=== PATIENT | male | born 1985 | race Caucasian/White ===

== ENCOUNTER 2021-05-15 01:29 | Emergency (ER) | payer OTHER, SELFPAY ==
--- NOTE | ~2021-05-15 | XR_ITS ---
EXAMINATION: RIGHT WRIST CLINICAL INFORMATION: Pain and deformity COMPARISON: None TECHNIQUE: 3 views right hand and wrist FINDINGS: No significant bone, joint or soft tissue abnormality seen. XR/XR hand wrist RT IMPRESSION: No abnormality is detected.
[2021-05-15 01:33] VITALS: BP 127/76; PULSE 73; O2SAT 97
[2021-05-15 01:36] VITALS: BP 128/81; PULSE 65; RESP 20; TEMP 37; O2SAT 99; BMI 25.8
[2021-05-15 03:19] LABS: MANUAL DIFF FLAG NO
[2021-05-15 03:20] LABS: Basophils Percent Auto 0.1 % (0-2); Eosinophils Absolute Auto 0.2 X10*3/uL (0.0-0.4); Hematocrit 34.1 % (42-52); Hemoglobin 11.9 g/dl (14.0-18.0); Imm Gran Abs Auto 0.03 X10*3/uL (0.00-0.03); Imm Gran Pct Auto 0.3 % (0.0-0.4); Lymphocytes Absolute Auto 2.3 X10*3/uL (1.2-4.9); Lymphocytes Percent Auto 25.3 % (20-40); Mean Corpuscular HGB Conc 34.9 g/dl (31.0-36.0); Mean Corpuscular Hemoglobin 31.4 pg (27.0-33.0); Mean Platelet Volume 9.1 fL (9.4-12.4); Monocytes Absolute Auto 0.6 X10*3/uL (0.1-1.2); Monocytes Percent Auto 6.9 % (2-11); Neutrophils Percent Auto 65.4 % (45-73); Platelet Count 378 X10*3/uL (160-400); Red Blood Count 3.79 X10*6/uL (4.60-5.80); Red Cell Distribution Width 13.2 % (11.0-16.0); White Blood Count 9.1 X10*3/uL (4.8-10.8)
[2021-05-15 03:33] LABS: Alanine Aminotransferase 35 U/L (0-40); Albumin Level 3.5 g/dL (3.5-5.0); Alkaline Phosphatase 88 U/L (39-117); Anion Gap 13 (12-20); Aspartate Amino Transferase 28 U/L (5-37); Bilirubin Total 0.4 mg/dL (0.0-1.0); Blood Urea Nitrogen 6 mg/dL (9-16); Calcium 8.8 mg/dL (8.4-10.2); Carbon Dioxide 23 mmol/L (22-29); Chloride 105 mmol/L (96-108); Creatinine Clr Calc Pharmacy 160.8; Estimated Glomerular Filt Rate > 60; Glucose Random 85 mg/dL (60-115); Sodium 137 mmol/L (135-145); Total Protein 6.6 g/dL (6.5-8.0)
--- NOTE | 2021-05-15 05:37 | ED.EXTPRO ---
HPI - Extremity Problem General Chief complaint: Extremity Injury, Upper Stated complaint: RIGHT ARM PAIN Time Seen by Provider: 05/15/21 01:44 Source: patient Mode of arrival: EMS History of Present Illness HPI Narrative: 36-year-old male, who is a IVDA, presents via EMS after he states he is having worsening right wrist pain that he states has not been associated with any falls. Patient states that the pain slowly radiates up to the elbow and says that a friend of his putting a needle into the wrist earlier today and then approximately an hour later he began experiencing ?severe pain?. Patient denies any associated fever, chills, redness, shortness of breath, numbness/tingling. Related Data Allergies Allergy/AdvReac Type Severity Reaction Status Date / Time amoxicillin [AMOXICILLIN] Allergy Unknown HIVES Verified 05/15/21 01:36 Review of Systems Review of Systems: Pertinent positives and negatives as stated in HPI 10 point review of systems is otherwise negative. PMFSH Past Medical History Source: nursing notes reviewed Social History Social History Advance Directives: No Advance Directives Information Provided: Yes Physical Exam Vital Signs: Vital Signs: Last Vital Signs Temp 98.6 F 05/15/21 01:36 Pulse 65 05/15/21 01:36 Resp 20 05/15/21 01:36 BP 128/81 05/15/21 01:36 Pulse Ox 99 05/15/21 01:36 Body Mass Index 25.8 VITAL SIGNS: Reviewed. GENERAL: Well developed, well nourished, in no acute distress. HEAD: Normocephalic/atraumatic EYES: PERRLA, EOMI OROPHARYNX: no oral lesions noted, posterior pharynx clear LUNGS: Normal breath sounds. No adventitious sounds or accessory muscle use. SpO2<99> CARDIOVASCULAR: Regular rate and rhythm without noted murmurs ABDOMEN: Soft, non-tender, non-distended with bowel sounds. Right upper extremity: No obvious deformities noted, capillary refill less than 3 seconds, palpable radial/ulnar pulses, tenderness to palpation over the dorsal aspect of wrist without snuffbox tenderness SKIN: Inspection of the skin reveals no rashes NEUROLOGIC: Alert and oriented x 4. Strength and sensation to light touch were grossly intact x 4. Course Course Course Narrative: 36-year-old male with history and clinical presentation consistent with mild cellulitis, but ruled out any fracture/dislocation or foreign body. On review of all investigations there are no acute findings, patient treated with initial antibiotics and then discharged on remaining course. MDM - Extremity (Nontraumatic) Lab Data Result diagrams: 05/15/21 03:13 05/15/21 03:13 Labs: Lab Results 05/15/21 05/15/21 05/15/21 Range/Units 03:13 03:13 03:23 WBC 9.1 (4.8-10.8) X10*3/uL RBC 3.79 L (4.60-5.80) X10*6/uL Hgb 11.9 L (14.0-18.0) g/dl Hct 34.1 L (42-52) % MCV 90.0 (80-98) fL MCH 31.4 (27.0-33.0) pg MCHC 34.9 (31.0-36.0) g/dl RDW 13.2 (11.0-16.0) % Plt Count 378 (160-400) X10*3/uL MPV 9.1 L (9.4-12.4) fL Immature Gran % (Auto) 0.3 (0.0-0.4) % Neut % (Auto) 65.4 (45-73) % Lymph % (Auto) 25.3 (20-40) % Antelope % (Auto) 6.9 (2-11) % Eos % (Auto) 2.0 (0-4) % Baso % (Auto) 0.1 (0-2) % Lymph # (Auto) 2.3 (1.2-4.9) X10*3/uL Antelope # (Auto) 0.6 (0.1-1.2) X10*3/uL Eos # (Auto) 0.2 (0.0-0.4) X10*3/uL Baso # (Auto) 0.0 (0.0-0.2) X10*3/uL Abs Immat Gran (auto) 0.03 (0.00-0.03) X10*3/uL Absolute Neuts (auto) 6.0 (2.0-8.3) X10*3/uL Absolute Nucleated RBC 0.000 (0.0-0.012) X10*3/uL Nucleated RBC % (auto) 0.0 (0.0-0.2) /100WBC Sodium 137 (135-145) mmol/L Potassium 4.0 (3.3-5.1) mmol/L Chloride 105 (96-108) mmol/L Carbon Dioxide 23 (22-29) mmol/L Anion Gap 13 (12-20) BUN 6 L (9-16) mg/dL Creatinine 0.69 (0.5-1.4) mg/dL Estim Creat Clear Calc 160.8 Estimated GFR > 60 Random Glucose 85 (60-115) mg/dL Lactic Acid 1.0 (0.5-2.0) mmol/L Calcium 8.8 (8.4-10.2) mg/dL Total Bilirubin 0.4 (0.0-1.0) mg/dL AST 28 (5-37) U/L ALT 35 (0-40) U/L Alkaline Phosphatase 88 (39-117) U/L Total Protein 6.6 (6.5-8.0) g/dL Albumin 3.5 (3.5-5.0) g/dL Discharge Plan Discharge Clinical Impression: Cellulitis Patient Disposition: Home, Self-Care Instructions: Cellulitis (ED) Additional Instructions: 1. Recommend completing the entire course of antibiotics as prescribed. 2. Recommend [id number] Tylenol/ibuprofen as needed for pain control. 3. Follow-up with your primary care provider in the next 1-2 days for re-evaluation and further outpatient management. Return to the ER for acute worsening of symptoms. Referrals: Milo Joshi MD [Primary Care Provider] - 2 days
== END 2021-05-15 06:09 | disposition home or self-care (01) ==
PROVIDERS: Emergency Provider Student in an Organized Health Care Education/Training Program; PCP Internal Medicine
DX: L03.113 Cellulitis of right upper limb (principal); M79.601 Pain in right arm; F19.10 Other psychoactive substance abuse, uncomplicated
CPT/HCPCS: 36415; 73110; 73130; 80053; 83605; 85025; 87040; 87077; 87186; 87205; 99283

== ENCOUNTER 2021-08-14 01:59 | Emergency (ER) | payer OTHER, SELFPAY ==
--- NOTE | ~2021-08-14 | XR_ITS ---
EXAMINATION: XR KNEE, RIGHT CLINICAL INFORMATION: Pain COMPARISON: 05/22/2020 TECHNIQUE: Four views of the right knee. FINDINGS: Osseous alignment is anatomic. There is mild joint space narrowing in the medial compartment. Minimal spurring is seen along the lateral and patellofemoral articulations. No acute fracture is seen. No significant effusion. XR/XR knee RT 4V IMPRESSION: No acute findings identified. Mild degenerative changes.
[2021-08-14 02:09] VITALS: PULSE 98; RESP 16; TEMP 36.8; O2SAT 97; BMI 23.0
--- NOTE | 2021-08-14 02:20 | ED_ITS ---
HPI - General Adult General Chief complaint: General Medical Stated complaint: swollen hand, leg pain Time Seen by Provider: 08/14/21 02:20 Source: patient Mode of arrival: ambulatory History of Present Illness HPI narrative: 36-year-old male, homeless, IVDA, presents with complaints of hands swelling but denies any fever or chills and states that his last use of heroin was yesterday. In addition, patient states he has baseline back and history of sciatica into the right lower extremity and is complaining of similar symptoms at this time. He denies any saddle anesthesia symptoms or bowel/bladder dysfunction but states that his right knee hurts but is not noted to be red or swollen. Related Data Previous Rx's Medication Instructions Recorded sulfamethoxazole 800 1 tab PO Q12H 7 Days #14 tab 05/15/21 mg-trimethoprim 160 mg tablet (Bactrim DS) Allergies Allergy/AdvReac Type Severity Reaction Status Date / Time amoxicillin [AMOXICILLIN] Allergy Unknown HIVES Verified 05/15/21 01:36 Review of Systems Review of Systems: Pertinent positives and negatives as stated in HPI 10 point review systems is otherwise negative. [facility], [facility] Past Medical History Source: nursing notes reviewed Social History Social History Advance Directives: No Advance Directives Information Provided: Yes Physical Exam Vital Signs: Vital Signs: Last Vital Signs Temp 98.3 F 08/14/21 02:09 Pulse 98 08/14/21 02:09 Resp 16 08/14/21 02:09 Pulse Ox 97 08/14/21 02:09 BMI result Body Mass Index 23.0 VITAL SIGNS: Reviewed. GENERAL: Borderline hygiene, in no acute distress. HEAD: Normocephalic/atraumatic EYES: PERRLA, EOMI OROPHARYNX: no oral lesions noted, posterior pharynx clear LUNGS: Normal breath sounds. No adventitious sounds or accessory muscle use. SpO2<97> CARDIOVASCULAR: Regular rate and rhythm without noted murmurs, no JVD or lower extremity edema. ABDOMEN: Soft, non-tender, non-distended with bowel sounds. BACK: No midline vertebral tenderness there is some noted right paraspinal tenderness on palpation RIGHT KNEE: No deformity, no effusion, no erythema/induration BILATERAL FEET: Noted to be wet with soft skin but no evidence of trench foot in sensation is intact. NEUROLOGIC: Alert and oriented x 4. Strength and sensation to light touch were grossly intact x 4. Course Course Course Narrative: 36-year-old male with suspected acute on chronic back pain with sciatica. Will obtain basic labs, UA, as well as right knee x-ray and dispo as indicated. Low clinical suspicion for spine abscess. Review of all investigations negative for acute findings and patient otherwise discharged home in stable condition with than Larry wrap in referral to follow-up with his primary care provider regarding his right knee. Medical Decision Making Lab Data Result diagrams: 08/14/21 02:51 08/14/21 02:51 Labs: Lab Results 08/14/21 08/14/21 08/14/21 Range/Units 02:51 02:51 02:51 WBC 11.3 H (4.8-10.8) X10*3/uL RBC 4.16 L (4.60-5.80) X10*6/uL Hgb 13.2 L (14.0-18.0) g/dl Hct 37.6 L (42.0-52.0) % MCV 90.4 (80.0-98.0) fL MCH 31.7 (27.0-33.0) pg MCHC 35.1 (31.0-36.0) g/dl RDW 12.6 (11.0-16.0) % Plt Count 395 (160-400) X10*3/uL MPV 8.9 L (9.4-12.4) fL Immature Gran % (Auto) 0.3 (0.0-0.4) % Neut % (Auto) 67.7 (45-73) % Lymph % (Auto) 25.2 (20-40) % [place] % (Auto) 5.7 (2-11) % Eos % (Auto) 0.8 (0-4) % Baso % (Auto) 0.3 (0-2) % Lymph # (Auto) 2.9 (1.2-4.9) X10*3/uL [place] # (Auto) 0.7 (0.1-1.2) X10*3/uL Eos # (Auto) 0.1 (0.0-0.4) X10*3/uL Baso # (Auto) 0.0 (0.0-0.2) X10*3/uL Abs Immat Gran (auto) 0.03 (0.00-0.03) X10*3/uL Absolute Neuts (auto) 7.7 (2.0-8.3) x10*3/uL Absolute Nucleated RBC 0.000 (0.0-0.012) X10*3/uL Nucleated RBC % (auto) 0.0 (0.0-0.2) /100WBC Sodium 137 (135-145) mmol/L Potassium 4.3 (3.3-5.1) mmol/L Chloride 100 (96-108) mmol/L Carbon Dioxide 27 (22-29) mmol/L Anion Gap 14 (12-20) BUN 16 (9-16) mg/dL Creatinine 0.87 (0.5-1.4) mg/dL Estim Creat Clear Calc 126.7 Estimated GFR > 60 Random Glucose 104 (60-115) mg/dL Calcium 10.0 D (8.4-10.2) mg/dL Total Bilirubin 0.7 (0.0-1.0) mg/dL AST 81 H (5-37) U/L ALT 115 H (0-40) U/L Alkaline Phosphatase 131 H D (39-117) U/L Total Protein 7.9 (6.5-8.0) g/dL Albumin 4.1 (3.5-5.0) g/dL COVID-19 ([facility]) Negative (Negative) COVID-19 Clin Com See Note Discharge Plan Discharge Clinical Impression: Knee pain, Back pain Patient Disposition: Home, Self-Care Instructions: Knee Pain (ED), Back Pain (ED) Additional Instructions: 1. Tylenol 1000 mg, orally, every 6 hours as needed for pain control. Do not exceed 4000 mg within 24 hours. 2. Ibuprofen 400 mg, orally with milk or food, every 6 hours as needed for pain control. 3. Continue to use the Larry wrap for additional support and you have been provided with a referral below to have your knee further evaluated. Return to the ER for acute worsening of symptoms. Prescriptions: No Action sulfamethoxazole-trimethoprim [Bactrim DS] 800-160 mg tablet 1 tab PO Q12H 7 Days Qty: 14 RF: 0 Referrals: Milo Joshi MD [Primary Care Provider] - 2 days (Right knee pain)
[2021-08-14 02:55] LABS: Basophils Percent Auto 0.3 % (0-2); Eosinophils Absolute Auto 0.1 X10*3/uL (0.0-0.4); Eosinophils Percent Auto 0.8 % (0-4); Hematocrit 37.6 % (42.0-52.0); Hemoglobin 13.2 g/dl (14.0-18.0); Imm Gran Abs Auto 0.03 X10*3/uL (0.00-0.03); Imm Gran Pct Auto 0.3 % (0.0-0.4); Lymphocytes Absolute Auto 2.9 X10*3/uL (1.2-4.9); Lymphocytes Percent Auto 25.2 % (20-40); MANUAL DIFF FLAG NO; Mean Corpuscular HGB Conc 35.1 g/dl (31.0-36.0); Mean Corpuscular Hemoglobin 31.7 pg (27.0-33.0); Mean Corpuscular Volume 90.4 fL (80.0-98.0); Mean Platelet Volume 8.9 fL (9.4-12.4); Monocytes Absolute Auto 0.7 X10*3/uL (0.1-1.2); Monocytes Percent Auto 5.7 % (2-11); Neutrophils Absolute Auto 7.7 x10*3/uL (2.0-8.3); Neutrophils Percent Auto 67.7 % (45-73); Platelet Count 395 X10*3/uL (160-400); Red Blood Count 4.16 X10*6/uL (4.60-5.80); Red Cell Distribution Width 12.6 % (11.0-16.0); White Blood Count 11.3 X10*3/uL (4.8-10.8)
[2021-08-14] MEDS: Acetaminophen 325 MG TABLET 975 MG PO (03:14)
[2021-08-14 03:15] LABS: COVID-19 Test Negative (Negative); IDNOW Serial# 9DD0AD1C
[2021-08-14] MEDS: Ibuprofen 400 MG TABLET PO (03:15)
[2021-08-14 03:23] LABS: Alanine Aminotransferase 115 U/L (0-40); Albumin Level 4.1 g/dL (3.5-5.0); Alkaline Phosphatase 131 U/L (39-117); Anion Gap 14 (12-20); Aspartate Amino Transferase 81 U/L (5-37); Bilirubin Total 0.7 mg/dL (0.0-1.0); Blood Urea Nitrogen 16 mg/dL (9-16); Carbon Dioxide 27 mmol/L (22-29); Chloride 100 mmol/L (96-108); Creatinine Clr Calc Pharmacy 126.7; Estimated Glomerular Filt Rate > 60; Glucose Random 104 mg/dL (60-115); Potassium 4.3 mmol/L (3.3-5.1); Sodium 137 mmol/L (135-145); Total Protein 7.9 g/dL (6.5-8.0)
== END 2021-08-14 07:12 | disposition home or self-care (01) ==
PROVIDERS: Emergency Provider Student in an Organized Health Care Education/Training Program; PCP Internal Medicine
DX: M25.561 Pain in right knee (principal); M54.41 Lumbago with sciatica, right side; Z20.822 Contact with and (suspected) exposure to COVID-19; I10 Essential (primary) hypertension
CPT/HCPCS: 36415; 73564; 80053; 85025; 87635; 99283

== ENCOUNTER 2021-08-26 15:14 | Inpatient (IN) | payer OTHER, SELFPAY ==
--- NOTE | 2021-08-26 | ECG_ITS ---
Test Reason : med clearance Blood Pressure : / mmHG Vent. Rate : 069 BPM Atrial Rate : 069 BPM P-R Int : 138 ms QRS Dur : 090 ms QT Int : 414 ms P-R-T Axes : 056 058 061 degrees QTc Int : 443 ms Normal sinus rhythm Normal ECG No previous ECGs available Referred By: Kanwal Tamayo Electronically Signed By:AMARI WORTHY
--- NOTE | ~2021-08-26 | CT_ITS ---
EXAMINATION: CT FACIAL BONES WITH CONTRAST CLINICAL INFORMATION: jaw and left face pain, hx of jazlyn in jaw, dental decay, r/o COMPARISON: None TECHNIQUE: Multidetector volumetric imaging was obtained through the facial bones from the frontal sinuses through the mandible following intravenous administration of 85 mL Omnipaque 350. Multiplanar reformatted images in coronal and sagittal orientations were submitted. This CT examination was performed using dose optimization techniques as appropriate, variously including the following: *Automated exposure control *Adjustment of mA and/or kV according to patient size (this includes techniques or standardized protocols for targeted exams where dose is matched to indication/reason for exam; i.e. extremities or head) *Use of iterative reconstruction technique DLP: 558 mGy-cm FINDINGS: Dental caries are noted at the left second mandibular molar with mild associated apical periodontitis. The wisdom teeth are surgically absent. The left second maxillary molar and right first maxillary molar are also absent. There is a dense band of cement-like material along the anterior margin of the maxilla just below the anterior maxillary spine, most consistent with a prior surgical procedure. A few punctate foci of gas are present around this cement-like focus of material. No surrounding fluid collections are identified. A small plate and screw fixation construct is evident at the left mandibular angle and is intact. No surrounding lucency. No acute maxillofacial fractures. There is left near complete opacification of the left maxillary sinus with mucosal thickening and an air-fluid level. The left maxillary antrum is partially opacified. Minimal mucosal thickening is evident within the right maxillary sinus, ethmoid sinuses, and sphenoid sinuses. Mastoid air cells are clear. There is no deviation of nasal septum. The pterygoid plates are intact. The zygomatic arches are intact. The lamina papyracea are intact. The orbital rims are intact. The orbits are normal. The TMJs are unremarkable. The imaged portions of the brain demonstrate no acute abnormality. Degenerative disc disease is present at C5-C6. Nasopharynx, oropharynx, and hypopharynx are unremarkable. CT/CT facial bones w con IMPRESSION: 1. Dental caries at the left second mandibular molar with minimal apical periodontitis. 2. Left maxillary sinus mucosal disease with an air-fluid level. 3. A dense band of cement-like material at the anterior margin of the maxilla, consistent with a prior surgical procedure. No surrounding fluid collections are identified. 4. Intact plate and screw fixation construct at the left hemimandible
[2021-08-26 15:59] VITALS: BP 134/80; PULSE 77; RESP 18; TEMP 36.3; O2SAT 96; BMI 24.4
--- NOTE | 2021-08-26 16:27 | ED.PSYCH ---
HPI - Psych General Chief Complaint: Psychiatric Symptoms Stated Complaint: Crisis Time Seen by Provider: 08/26/21 15:49 Source: patient Mode of arrival: ambulatory Limitations: no limitations History of Present Illness HPI Narrative: Patient comes to emergency room seeking help for detox. Patient states that he has been using heroin alcohol. Patient states that he has been homeless for about a week, states that he has seen several of his friends recently due to overdoses. Patient does not have any specific plan to kill himself but states that sometimes he is feels hopeless. Patient was advised to come to the emergency room twice for help. Patient has no other complaints. Related Data Previous Rx's Medication Instructions Recorded sulfamethoxazole 800 1 tab PO Q12H 7 Days #14 tab 05/15/21 mg-trimethoprim 160 mg tablet (Bactrim DS) Allergies Allergy/AdvReac Type Severity Reaction Status Date / Time amoxicillin [AMOXICILLIN] Allergy Unknown HIVES Verified 05/15/21 01:36 Review of Systems Review of Systems: Constitutional : No Weight loss, No Fever, No Chills, No Night Sweats, No Fatigue, No Malaise ENT/Mouth : No Hearing loss, No Ear Pain, No Nasal Congestion, No Sinus Pain, No Hoarseness, No sore throat, No Rhinorrhea, No Swallowing Difficulty Eyes: No Eye Pain, No Swelling, No Redness, No Foreign Body, No Discharge, No Vision Changes Cardiovascular : No Chest Pain, No SOB, No Dyspnea on Exertion, No Orthopnea, No Edema, No Palpitations Respiratory : No Cough, No Sputum, No Wheezing, No Smoke Exposure, No Dyspnea Gastrointestinal : No Nausea, No Vomiting, No Diarrhea, No Constipation, No abdominal Pain, No Hematochezia, No Melena Genitourinary : no irregular bleeding, No Dysuria, No Urinary Frequency, No Hematuria, No Urinary Incontinence, No Urgency, No Flank Pain, No Urinary Flow Changes, No Hesitancy Musculoskeletal : No joint pain, No Myalgias, No Joint Swelling Skin : No Skin Lesions, No rash Neuro : No Weakness, No Numbness, No Paresthesias, No Loss of Consciousness, No Dizziness, No Headache Psych : No Anxiety/Panic, No Depression, No SI/HI/AH/VH, No Social Issues, Heme/Lymph: No Bruising, No Bleeding,No Lymphadenopathy Endocrine : No Polyuria, No Polydipsia, No Temperature Intolerance PMFSH Social History Social History Advance Directives: No Advance Directives Information Provided: No Physical Exam Vital Signs: Vital Signs: Last Vital Signs Temp 97.3 F 08/26/21 15:59 Pulse 77 08/26/21 15:59 Resp 18 08/26/21 15:59 BP 134/80 08/26/21 15:59 Pulse Ox 96 08/26/21 15:59 BMI result Body Mass Index 24.4 Course Course Course Narrative: U tox positive for opiates, fentanyl, cocaine. Patient's vitals are stable. Physician observation started at 18:00. [facility] consult pending MDM - Psych Lab Data Labs: Lab Results 08/26/21 08/26/21 Range/Units 16:11 17:23 Urine Opiates Screen POSITIVE H (Not Detect) Urine Fentanyl Screen POSITIVE H (Not Detect) Ur Barbiturates Screen Not Detected (Not Detect) Ur Phencyclidine Scrn Not Detected (Not Detect) Ur Amphetamines Screen Not Detected (Not Detect) U Benzodiazepines Scrn Not Detected (Not Detect) Urine Cocaine Screen POSITIVE H (Not Detect) U Marijuana (THC) Screen Not Detected (Not Detect) COVID-19 ([facility]) Negative (Negative) COVID-19 Clin Com See Note Discharge Plan Discharge Clinical Impression: Depression, Acute anxiety, Active substance abuse Patient Disposition: Still a Patient Prescriptions: No Action sulfamethoxazole-trimethoprim [Bactrim DS] 800-160 mg tablet 1 tab PO Q12H 7 Days Qty: 14 RF: 0
[2021-08-26 16:59] LABS: Amphetamine Screen Urine Not Detected (Not Detect); Barbiturates, Urine Not Detected (Not Detect); Benzodiazepines Screen Urine Not Detected (Not Detect); Cannabinoid Screen Urine Not Detected (Not Detect); Cocaine Screen Urine POSITIVE (Not Detect); Fentanyl, urine POSITIVE (Not Detect); Opiate Screen Urine POSITIVE (Not Detect); Phencyclidine Screen Urine Not Detected (Not Detect)
--- NOTE | 2021-08-26 17:15 | PC.NURSE ---
Patient resting comfortably in bed awaiting improvement in symptoms
[2021-08-26 17:49] LABS: COVID-19 Test Negative (Negative)
[2021-08-26 20:22] VITALS: PULSE 70
[2021-08-26] MEDS: LORazepam 1 MG TABLET 2 MG PO (20:33)
--- NOTE | 2021-08-26 20:38 | MHC.RECOVSUP ---
? 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 ? ?Current location: [facility] o ? ? ?Identified substance use concern: Heroine, Alcohol ? - Overdose - Withdrawal - Seeking ATS (detox) - Support ? ?Intervention: o Community resources provided o Harm reduction discussion ? Plan: o Referral to [facility] o Patient awaiting crisis evaluation ? Additional information:?I was able to connect with patient and review harm reduction strategies, referred [facility] and other community resources. Patient is interested in detox and furthering his treatment. I was able to consult care team and providers. Patient will stay over night and address his concerns for treatment tomorrow.
[2021-08-26 22:21] LABS: Ethanol < 10 mg/dL
[2021-08-27 00:50] VITALS: BP 142/88; PULSE 73; RESP 16; TEMP 37.4; O2SAT 95
[2021-08-27] MEDS: LORazepam 1 MG TABLET 2 MG PO (01:31)
--- NOTE | 2021-08-27 06:37 | PC.NURSE ---
Patient slept through the night, no distress observed/reported, patient scored 10 on COW received Ativan 2 mg po at 2032, with + effect, patient screened by N, patient was engaged, disposition was section 12 inpatient bed search, Patient was observed restless after N evaluation, Ativan 2 mg po administered at 130 with + effect, med rec completed pending providers approval, patient is asymptomatic of withdrawal at this time, VSS, behavior appropriate, help seeking, will continue top monitor.
--- NOTE | 2021-08-27 07:22 | PC.NURSE ---
patient appears to remain asleep respirations are even and unlabored, patient appears in no distress
[2021-08-27 07:53] VITALS: BP 142/88; PULSE 80; RESP 13; TEMP 36.7; O2SAT 97
[2021-08-27 10:30] LABS: MANUAL DIFF FLAG NO
[2021-08-27 10:32] LABS: Basophils Percent Auto 0.2 % (0-2); Eosinophils Absolute Auto 0.1 X10*3/uL (0.0-0.4); Eosinophils Percent Auto 1.4 % (0-4); Hematocrit 40.4 % (42.0-52.0); Hemoglobin 13.9 g/dl (14.0-18.0); Imm Gran Abs Auto 0.02 X10*3/uL (0.00-0.03); Imm Gran Pct Auto 0.3 % (0.0-0.4); Lymphocytes Absolute Auto 1.3 X10*3/uL (1.2-4.9); Lymphocytes Percent Auto 22.7 % (20-40); Mean Corpuscular HGB Conc 34.4 g/dl (31.0-36.0); Mean Corpuscular Hemoglobin 31.5 pg (27.0-33.0); Mean Corpuscular Volume 91.6 fL (80.0-98.0); Mean Platelet Volume 9.6 fL (9.4-12.4); Monocytes Absolute Auto 0.5 X10*3/uL (0.1-1.2); Monocytes Percent Auto 7.8 % (2-11); Neutrophils Percent Auto 67.6 % (45-73); Platelet Count 301 X10*3/uL (160-400); Red Blood Count 4.41 X10*6/uL (4.60-5.80); Red Cell Distribution Width 12.6 % (11.0-16.0); White Blood Count 5.9 X10*3/uL (4.8-10.8)
--- NOTE | 2021-08-27 10:50 | MHC.RECOVRN ---
Met with pt in [facility] to discuss substance use and withdrawal symptoms. Pt reports using heroin, 2 bundles IV daily x 3 months, last use 08/26 in the morning. Pt reports occasional cocaine use. Pts current COWS score 15. Pt has been on methadone in the past and would like to initiate while here. Pt does not have an ID. Pt aware ID must be obtained from [facility] (prior [facility]) in order to successfully link after discharge. Pt aware that attempt could be made to reinstate at [facility]. Pt agreaable to either route. Discussed with ED provider as well as Supriya Blanchard APRN.
[2021-08-27] MEDS: methADONE HCl 20 MG/2 ML ORAL.CONC 30 MG PO (10:51)
[2021-08-27 11:08] LABS: Alanine Aminotransferase 102 U/L (0-40); Albumin Level 3.5 g/dL (3.5-5.0); Alkaline Phosphatase 104 U/L (39-117); Anion Gap 13 (12-20); Aspartate Amino Transferase 78 U/L (5-37); Bilirubin Total 0.8 mg/dL (0.0-1.0); Blood Urea Nitrogen 10 mg/dL (9-16); Calcium 9.3 mg/dL (8.4-10.2); Carbon Dioxide 21 mmol/L (22-29); Chloride 105 mmol/L (96-108); Creatinine Clr Calc Pharmacy 154.1; Estimated Glomerular Filt Rate > 60; Glucose Random 101 mg/dL (60-115); Potassium 4.9 mmol/L (3.3-5.1); Sodium 134 mmol/L (135-145); Total Protein 7.2 g/dL (6.5-8.0)
[2021-08-27] MEDS: methADONE HCl 20 MG/2 ML ORAL.CONC 10 MG PO (14:52)
[2021-08-27 15:32] VITALS: BP 142/88; PULSE 80
[2021-08-27] MEDS: hydrOXYzine HCL 25 MG TABLET PO ×2 (15:32→22:04)
[2021-08-27] MEDS: cloNIDine HCL 0.1 MG TABLET PO ×2 (15:32→22:04)
--- NOTE | 2021-08-27 17:19 | HO.ADDICT_ITS ---
History of Present Illness Date of Service: 08/27/2021 Chief Complaint: Recurrent Major Depression, Opiate Use Disorder-Se Reason for Consult: OUD Requesting physician: Jackelin Carlton Discussed with referring provider: Yes Sources of Information: patient interviewed and chart reviewed HPI Narrative: Patient is a 36 year old male with dx of OUD currently awaiting psy chiatric admission for depression. Methadone 30mg administered while in ED to address withdrawal sx Patient seen by this telegraphic typewriter mechanic approx 3 hours after methadone dose. Still experiencing withdrawal sx. Observed to be having restlessness, curled up under blankets, yawning, rhinorrhea, reporting nausea, one episode of loose stools, chills, body aches. Denies vomiting Using approx 5 bundles of heroin IV QD. Last use on prior to admission Several years of use and several episodes of treatment --prior history of methadone tx (states dose was up to 110mg) Review of Systems Constitutional: Reports as per HPI Diagnostics Vital Signs (24Hr): Vital Signs - 24 hr 08/27/21 00:50 08/27/21 07:53 08/27/21 15:32 Temperature 99.3 F 98.1 F Pulse Rate 73 80 80 Respiratory Rate 16 13 Blood Pressure 142/88 H 142/88 H 142/88 H Pulse Oximetry 95 97 BMI result Body Mass Index 24.4 Labs Results: 08/27/21 10:24 08/27/21 10:24 Labs: Laboratory Results - last 48 hr 08/26/21 08/26/21 08/26/21 16:11 17:23 22:02 WBC RBC Hgb Hct MCV MCH MCHC RDW Plt Count MPV Immature Gran % (Auto) Neut % (Auto) Lymph % (Auto) [place] % (Auto) Eos % (Auto) Baso % (Auto) Lymph # (Auto) [place] # (Auto) Eos # (Auto) Baso # (Auto) Abs Immat Gran (auto) Absolute Neuts (auto) Absolute Nucleated RBC Nucleated RBC % (auto) Sodium Potassium Chloride Carbon Dioxide Anion Gap BUN Creatinine Estim Creat Clear Calc Estimated GFR Random Glucose Calcium Total Bilirubin AST ALT Alkaline Phosphatase Total Protein Albumin Urine Opiates Screen POSITIVE H Urine Fentanyl Screen POSITIVE H Ur Barbiturates Screen Not Detected Ur Phencyclidine Scrn Not Detected Ur Amphetamines Screen Not Detected U Benzodiazepines Scrn Not Detected Urine Cocaine Screen POSITIVE H U Marijuana (THC) Screen Not Detected Ethyl Alcohol < 10 COVID-19 (JC) Negative COVID-19 Clin Com See Note 08/27/21 08/27/21 10:24 10:24 WBC 5.9 RBC 4.41 L Hgb 13.9 L Hct 40.4 L MCV 91.6 MCH 31.5 MCHC 34.4 RDW 12.6 Plt Count 301 MPV 9.6 Immature Gran % (Auto) 0.3 Neut % (Auto) 67.6 Lymph % (Auto) 22.7 [place] % (Auto) 7.8 Eos % (Auto) 1.4 Baso % (Auto) 0.2 Lymph # (Auto) 1.3 [place] # (Auto) 0.5 Eos # (Auto) 0.1 Baso # (Auto) 0.0 Abs Immat Gran (auto) 0.02 Absolute Neuts (auto) 4.0 Absolute Nucleated RBC 0.000 Nucleated RBC % (auto) 0.0 Sodium 134 L Potassium 4.9 Chloride 105 Carbon Dioxide 21 L Anion Gap 13 BUN 10 Creatinine 0.72 Estim Creat Clear Calc 154.1 Estimated GFR > 60 Random Glucose 101 Calcium 9.3 D Total Bilirubin 0.8 AST 78 H ALT 102 H Alkaline Phosphatase 104 D Total Protein 7.2 Albumin 3.5 Urine Opiates Screen Urine Fentanyl Screen Ur Barbiturates Screen Ur Phencyclidine Scrn Ur Amphetamines Screen U Benzodiazepines Scrn Urine Cocaine Screen U Marijuana (THC) Screen Ethyl Alcohol COVID-19 (JC) COVID-19 Clin Com Mental Status Exam Mental Status Exam Patient Appearance: Appropriate Patient Orientation: Person, Place, Time and Situation Level of Consciousness: Awake Patient Behavior: Cooperative and Restless Mood Description: Blunted Speech Pattern: Clear Thought Process: Intact Thought Content: positive for Intact Judgement: Fair Medications Medications Current Medications Acetaminophen (Acetaminophen 325 Mg Tablet) 650 mg PO Q6H PRN PRN Reason: Headache/Pain Mild Scale (1-3) Al Hydroxide/Mg Hydroxide (Magnesium Hydrox/Alum Hydrox 30 Ml Oral.Susp) 30 ml PO Q6H PRN PRN Reason: Heartburn/Nausea Clonidine HCl (Clonidine Hcl 0.1 Mg Tablet) 0.1 mg PO TID PEDRO; Protocol Last Admin: 08/27/21 15:32 Dose: 0.1 mg Documented by: Hydroxyzine HCl (Hydroxyzine Hcl 25 Mg Tablet) 25 mg PO TID PEDRO Last Admin: 08/27/21 15:32 Dose: 25 mg Documented by: Lorazepam (Lorazepam 1 Mg Tablet) 1 mg PO Q4H PRN PRN Reason: withdrawal Magnesium Hydroxide (Milk Of Magnesia 30 Ml Oral.Susp) 30 ml PO DAILY PRN PRN Reason: Constipation Multivitamins/Vitamin C (Multivitamin Tablet) 1 tab PO DAILY PEDRO Prazosin HCl (Prazosin Hcl 1 Mg Capsule) 2 mg PO BEDTIME PEDRO; Protocol Thiamine HCl (Thiamine Hcl 100 Mg Tablet) 100 mg PO DAILY PEDRO Trazodone HCl (Trazodone Hcl 100 Mg Tablet) 100 mg PO BEDTIME PRN PRN Reason: Insomnia Allergies Allergies Allergy/AdvReac Type Severity Reaction Status Date / Time amoxicillin [AMOXICILLIN] Allergy Unknown HIVES Verified 05/15/21 01:36 Assessment & Plan Assessment & Plan (1) Opioid use disorder: Status: Acute Code(s): F11.90 - Opioid use, unspecified, uncomplicated Assessment and Plan: * Additional 10mg methadone ordered (total of 40mg today) * Methadone 45mg ordered for the morning * Clonidine for anxiety * Avoid benzodiazepines if possible * HIV and hepatitis screening labs (if not already done) I spent ___25___ minutes with the patient and/or on the patient floor today, greater than?50% of which was spent counseling/coordinating care. [facility] Social History Social History Advance Directives: No Advance Directives Information Provided: No
[2021-08-27 17:55] VITALS: PULSE 78
[2021-08-27 18:06] VITALS: BP 140/92; PULSE 78; RESP 16; TEMP 36.4; O2SAT 95
--- NOTE | 2021-08-27 18:11 | PC.ADMIT ---
PT admitted to unit on CV with a diagnosis of Unspecified bipolar and related disorder, opioid use disorder, and stimulant use disorder. PT states that he is homeless and was having thoughts of suicide with a plan to overdose or walk into traffic. PT states he is sick of life and just wants help. PT reports this is his first admission. PT self-presented to the emergency room. Pt tox screen was positive for opiates, fentanyl and cocaine. PT also reports daily ETOH stating that he drinks 1/5 of a 12 pack daily. Pt states he has no outpatient providers but states that he was taking gabapentin, vistaril, latuda, lamictal and clonidine. Pt is calm and cooperative with admission process, affect is flat and pt continues to endorse SI, no plan or intent at this time. PT states he is safe on the unit. 15 minute safety checks initiated for safety.
[2021-08-27 22:04] VITALS: BP 124/70; PULSE 64
[2021-08-27] MEDS: Prazosin HCL 1 MG CAPSULE 2 MG PO (22:04)
[2021-08-28 06:00] VITALS: BP 146/84; PULSE 62; RESP 18; TEMP 36.9; O2SAT 95
[2021-08-28 08:21] VITALS: BP 146/84; PULSE 62
[2021-08-28] MEDS: Thiamine HCL 100 MG TABLET PO (08:21)
[2021-08-28] MEDS: hydrOXYzine HCL 25 MG TABLET PO ×3 (08:21→20:38)
[2021-08-28] MEDS: cloNIDine HCL 0.1 MG TABLET PO ×3 (08:21→20:38)
[2021-08-28] MEDS: Multivitamin TABLET 1 TAB PO (08:21)
[2021-08-28] MEDS: methADONE HCl 20 MG/2 ML ORAL.CONC 45 MG PO (08:21)
[2021-08-28] MEDS: Nicotine Polacrilex 2 MG GUM BUCCAL ×4 (08:22→19:47)
[2021-08-28] MEDS: Nicotine 21 MG PATCH.TD24 TRANSDERMA (08:22)
[2021-08-28 09:00] LABS: Cholesterol 168 mg/dL; HDL Cholesterol 58 mg/dL; LDL Cholesterol Calculated 95 mg/dl; Magnesium 2.1 mg/dL (1.6-2.6); Triglycerides 78 mg/dL
[2021-08-28 09:01] LABS: Estimated Average Glucose 94 mg/dL; Hemoglobin A1c % 4.9 %
[2021-08-28 09:24] LABS: Free T4 (Free Thyroxine) 0.89 ng/dL (0.71-1.85); Thyroid Stimulating Hormone 0.34 uIU/mL (0.32-4.0)
[2021-08-28 09:45] LABS: Folate 13.2 ng/mL (> or = 4.0); Vitamin B12 408 pg/mL (200-900)
--- NOTE | 2021-08-28 11:30 | MHC.RECOVRN ---
Attempted to meet with pt to discuss methadone dose and withdrawal symptoms. Pt asleep. Will continue to follow.
[2021-08-28 14:37] VITALS: BP 136/100; PULSE 74
[2021-08-28 16:00] VITALS: PULSE 86
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
[2021-08-28] MEDS: methADONE HCl 20 MG/2 ML ORAL.CONC 5 MG PO (17:31)
--- NOTE | 2021-08-28 17:33 | PM.EVENT ---
Event Note Date of Service: 08/28/21 Event Note: Addiciton note: Patient seen by Recovery support RN. Tolerated 45mg methadone this morning, by the afternoon patient with rhinorrhea, body aches Plan: -increase methadone to 50mg QD tomorrow -discussed with attending who will administer additional 5mg tonight -increase by 5mg QD until at 60mg (if necessary) and hold there for 3 days before increasing again -avoid benzos to minimize risk of resp. depression
[2021-08-28 18:00] VITALS: BP 133/83; PULSE 82; RESP 16; TEMP 36.6
[2021-08-28] MEDS: LORazepam 1 MG TABLET PO (18:31)
[2021-08-28 20:38] VITALS: BP 133/83; PULSE 82
[2021-08-28] MEDS: lamoTRIgine 25 MG TABLET PO (20:38)
[2021-08-28] MEDS: traZODone HCL 100 MG TABLET PO (20:38)
[2021-08-28] MEDS: Lurasidone HCl 20 MG TABLET PO (20:38)
[2021-08-28] MEDS: Prazosin HCL 1 MG CAPSULE 2 MG PO (20:38)
[2021-08-29 06:00] VITALS: BP 128/62; PULSE 56; RESP 18; TEMP 36.6; O2SAT 99
[2021-08-29] MEDS: Nicotine 21 MG PATCH.TD24 TRANSDERMA (08:06)
[2021-08-29] MEDS: Thiamine HCL 100 MG TABLET PO (08:07)
[2021-08-29] MEDS: methADONE HCl 20 MG/2 ML ORAL.CONC 50 MG PO (08:07)
[2021-08-29] MEDS: Multivitamin TABLET 1 TAB PO (08:07)
[2021-08-29] MEDS: Nicotine Polacrilex 2 MG GUM BUCCAL ×4 (08:07→20:46)
[2021-08-29] MEDS: cloNIDine HCL 0.1 MG TABLET PO ×2 (08:17→15:54)
[2021-08-29] MEDS: LORazepam 1 MG TABLET PO ×3 (08:17→19:55)
[2021-08-29 10:23] LABS: Alanine Aminotransferase 96 U/L (0-40); Albumin Level 3.9 g/dL (3.5-5.0); Alkaline Phosphatase 104 U/L (39-117); Anion Gap 10 (12-20); Aspartate Amino Transferase 52 U/L (5-37); Bilirubin Direct 0.3 mg/dL (0.0-0.5); Bilirubin Total 0.7 mg/dL (0.0-1.0); Carbon Dioxide 28 mmol/L (22-29); Chloride 103 mmol/L (96-108); Potassium 5.1 mmol/L (3.3-5.1); Sodium 136 mmol/L (135-145); Total Protein 7.6 g/dL (6.5-8.0)
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
[2021-08-29 15:54] VITALS: BP 140/63; PULSE 82
[2021-08-29] MEDS: hydrOXYzine HCL 25 MG TABLET PO (19:55)
[2021-08-29 20:40] VITALS: BP 136/70; PULSE 82
[2021-08-29] MEDS: Lurasidone HCl 20 MG TABLET PO (20:40)
[2021-08-29] MEDS: methADONE HCl 20 MG/2 ML ORAL.CONC 5 MG PO (20:40)
[2021-08-29] MEDS: Prazosin HCL 1 MG CAPSULE 2 MG PO (20:40)
[2021-08-29] MEDS: lamoTRIgine 25 MG TABLET PO (20:40)
[2021-08-29] MEDS: traZODone HCL 100 MG TABLET PO (20:46)
[2021-08-30] MEDS: Thiamine HCL 100 MG TABLET PO (08:00)
[2021-08-30] MEDS: methADONE HCl 20 MG/2 ML ORAL.CONC 60 MG PO (08:00)
[2021-08-30] MEDS: Nicotine Polacrilex 2 MG GUM BUCCAL ×6 (08:00→22:48)
[2021-08-30] MEDS: Multivitamin TABLET 1 TAB PO (08:00)
[2021-08-30] MEDS: LORazepam 1 MG TABLET PO ×3 (08:00→20:34)
[2021-08-30] MEDS: Nicotine 21 MG PATCH.TD24 TRANSDERMA (08:00)
[2021-08-30 14:47] VITALS: BP 139/77; PULSE 86
[2021-08-30] MEDS: cloNIDine HCL 0.1 MG TABLET PO (14:47)
[2021-08-30] MEDS: hydrOXYzine HCL 25 MG TABLET PO ×2 (14:48→22:43)
[2021-08-30 16:00] VITALS: PULSE 81
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
[2021-08-30] MEDS: Ibuprofen 600 MG TABLET PO (17:24)
[2021-08-30] MEDS: Lurasidone HCl 20 MG TABLET PO (22:31)
[2021-08-30] MEDS: Gabapentin 100 MG CAPSULE 200 MG PO (22:32)
[2021-08-30 22:33] VITALS: BP 143/76; PULSE 81
[2021-08-30] MEDS: Prazosin HCL 1 MG CAPSULE 2 MG PO (22:33)
[2021-08-30 22:35] VITALS: BP 143/76; PULSE 81; TEMP 36.2
[2021-08-30] MEDS: lamoTRIgine 25 MG TABLET PO (22:39)
[2021-08-30] MEDS: traZODone HCL 100 MG TABLET PO (22:44)
[2021-08-31 06:00] VITALS: BP 150/64; PULSE 88; RESP 18; TEMP 36.4; O2SAT 98
[2021-08-31] MEDS: Nicotine Polacrilex 2 MG GUM BUCCAL ×4 (08:08→21:16)
[2021-08-31] MEDS: methADONE HCl 20 MG/2 ML ORAL.CONC 60 MG PO (08:08)
[2021-08-31] MEDS: Thiamine HCL 100 MG TABLET PO (08:09)
[2021-08-31] MEDS: LORazepam 1 MG TABLET PO ×4 (08:09→21:16)
[2021-08-31] MEDS: Gabapentin 100 MG CAPSULE 200 MG PO (08:09)
[2021-08-31] MEDS: Multivitamin TABLET 1 TAB PO (08:09)
[2021-08-31] MEDS: cloNIDine HCL 0.1 MG TABLET PO ×2 (08:10→21:15)
[2021-08-31] MEDS: Nicotine 21 MG PATCH.TD24 TRANSDERMA (08:10)
--- NOTE | 2021-08-31 13:45 | HO.ADDICTPRO ---
Subjective Subjective Date of Service: 08/31/21 Reason For Visit: Recurrent Major Depression, Opiate Use Disorder-Se Interim History: Patient seen today on inpatient psychiatric unit. Currently at methadone 60 mg daily. Has been tolerating titration, dose increased to 60 mg yesterday (08-30). He reports that he feels very well during the day, eating, engaging in groups, and then around dinner time he begins to feel hot and cold, diaphoretic throughout the night and he wakes up feeling very ill. He is requesting further increase in dosing. Using approximately 50 bags of heroin/fentanyl daily. Reports that he had previously been on methadone, had been at various doses but states that between 70 and 80 mg of methadone is where he felt most stable. Reports that he had over 5 years of recovery while in methadone treatment. Reports that he tapered off of methadone about a year and a half ago and quickly began using shortly after that time. He is expressing motivation for treatment, would like to engage with his previous supports who he reports were instrumental in his recovery. He would like to return to [facility] to continue methadone treatment. Review of Systems Constitutional: Reports as per HPI Mental Status Exam Mental Status Exam Patient Appearance: Well Grooomed and Appropriate Patient Orientation: Person, Place, Time and Situation Level of Consciousness: Awake, Appropriate and Alert Patient Behavior: Appropriate Mood Description: Calm and Appropriate Affect Description: Calm and Appropriate Speech Pattern: Clear Thought Process: Intact and Goal Oriented Thought Content: positive for Intact and positive for Goal Oriented Judgement: Good Diagnostics Vital Signs (24Hr): Vital Signs - 24 hr 08/30/21 14:47 08/30/21 22:33 08/30/21 22:35 Temperature 97.1 F Pulse Rate 86 81 81 Respiratory Rate Blood Pressure 139/77 143/76 H 143/76 H Pulse Oximetry 08/31/21 06:00 Temperature 97.5 F Pulse Rate 88 Respiratory Rate 18 Blood Pressure 150/64 H Pulse Oximetry 98 BMI result Body Mass Index 24.4 Labs Results: 08/27/21 10:24 08/29/21 09:05 Medications Medications Current Medications Al Hydroxide/Mg Hydroxide (Magnesium Hydrox/Alum Hydrox 30 Ml Oral.Susp) 30 ml PO Q6H PRN PRN Reason: Heartburn/Nausea Clonidine HCl (Clonidine Hcl 0.1 Mg Tablet) 0.1 mg PO TID PRN; Protocol PRN Reason: withdrawal or anxiety Last Admin: 08/31/21 08:10 Dose: 0.1 mg Documented by: Gabapentin (Gabapentin 100 Mg Capsule) 200 mg PO TID PEDRO Last Admin: 08/31/21 08:09 Dose: 200 mg Documented by: Hydroxyzine HCl (Hydroxyzine Hcl 25 Mg Tablet) 25 mg PO TID PRN PRN Reason: Anxiety Last Admin: 08/30/21 22:43 Dose: 25 mg Documented by: Ibuprofen (Ibuprofen 600 Mg Tablet) 600 mg PO Q8H PRN PRN Reason: Pain, Mild (Pain Scale 1-3) Last Admin: 08/30/21 17:24 Dose: 600 mg Documented by: Lamotrigine (Lamotrigine 25 Mg Tablet) 25 mg PO BEDTIME PEDRO Last Admin: 08/30/21 22:39 Dose: 25 mg Documented by: Lorazepam (Lorazepam 1 Mg Tablet) 1 mg PO Q4H PRN PRN Reason: withdrawal Last Admin: 08/31/21 12:24 Dose: 1 mg Documented by: Lurasidone HCl (Lurasidone Hcl 20 Mg Tablet) 20 mg PO BEDTIME PEDRO Last Admin: 08/30/21 22:31 Dose: 20 mg Documented by: Magnesium Hydroxide (Milk Of Magnesia 30 Ml Oral.Susp) 30 ml PO DAILY PRN PRN Reason: Constipation Methadone HCl (Methadone Hcl 20 Mg/2 Ml Oral.Conc) 5 mg PO ONCE ONE Stop: 08/31/21 20:01 Methadone HCl (Methadone Hcl 20 Mg/2 Ml Oral.Conc) 65 mg PO DAILY [facility] Multivitamins/Vitamin C (Multivitamin Tablet) 1 tab PO DAILY [facility] Last Admin: 08/31/21 08:09 Dose: 1 tab Documented by: Nicotine (Nicotine 21 Mg Patch.Td24) 21 mg TRANSDERMA DAILY [facility] Last Admin: 08/31/21 08:10 Dose: 21 mg Documented by: Nicotine Polacrilex (Nicotine Polacrilex 2 Mg Gum) 2 mg BUCCAL Q2H PRN PRN Reason: Nicotine Cravings Last Admin: 08/31/21 12:24 Dose: 2 mg Documented by: Prazosin HCl (Prazosin Hcl 1 Mg Capsule) 2 mg PO BEDTIME PEDRO; Protocol Last Admin: 08/30/21 22:33 Dose: 2 mg Documented by: Thiamine HCl (Thiamine Hcl 100 Mg Tablet) 100 mg PO DAILY [facility]EDRO Last Admin: 08/31/21 08:09 Dose: 100 mg Documented by: Trazodone HCl (Trazodone Hcl 100 Mg Tablet) 100 mg PO BEDTIME PRN PRN Reason: Insomnia Last Admin: 08/30/21 22:44 Dose: 100 mg Documented by: Allergies Allergies Allergy/AdvReac Type Severity Reaction Status Date / Time amoxicillin [AMOXICILLIN] Allergy Unknown HIVES Verified 05/15/21 01:36 Assessment & Plan Assessment & Plan (1) Opioid use disorder: Status: Acute Code(s): F11.90 - Opioid use, unspecified, uncomplicated Assessment and Plan: Additional 5 mg of methadone this evening (for total of 65 mg today) Methadone 65 mg daily starting tomorrow morning EKG Hold at this dose for another 2-3 days before increasing any further Discussed plan with covering psychiatric provider Recovery support nurse to coordinate with inpatient social media campaign manager to ensure discharge planning regarding methadone treatment is taking care of I spent __35____ minutes with the patient and/or on the patient floor today, greater than?50% of which was spent counseling/coordinating care.
[2021-08-31] MEDS: Gabapentin 300 MG CAPSULE PO ×2 (15:53→21:16)
[2021-08-31] MEDS: hydrOXYzine HCL 25 MG TABLET PO ×2 (15:53→21:16)
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
[2021-08-31 18:00] VITALS: BP 138/69; TEMP 37.7
--- NOTE | 2021-08-31 19:15 | MHC.RECOVSUP ---
Met with Pt. Pt. is well said that his dose of methadone is working well.Pt. is still interested in gong into a program I stated that I will inform the Care Team to follow up with him.
[2021-08-31] MEDS: methADONE HCl 20 MG/2 ML ORAL.CONC 5 MG PO (21:13)
[2021-08-31 21:15] VITALS: BP 135/78; PULSE 82
[2021-08-31] MEDS: lamoTRIgine 25 MG TABLET PO (21:15)
[2021-08-31 21:16] VITALS: BP 135/78; PULSE 82
[2021-08-31] MEDS: Lurasidone HCl 20 MG TABLET PO (21:16)
[2021-08-31] MEDS: Prazosin HCL 1 MG CAPSULE 2 MG PO (21:16)
[2021-09-01] VITALS (7 sets, daily range): BP systolic 125–161; BP diastolic 58–93; PULSE 73–91; RESP 16–18; TEMP 36.4; O2SAT 99
--- NOTE | 2021-09-01 | ECG_ITS ---
Test Reason : substance abuse Blood Pressure : / mmHG Vent. Rate : 081 BPM Atrial Rate : 081 BPM P-R Int : 138 ms QRS Dur : 092 ms QT Int : 352 ms P-R-T Axes : 053 057 059 degrees QTc Int : 408 ms Normal sinus rhythm Normal ECG When compared with ECG of 26-AUG-2021 18:42, No significant change was found Referred By: Cindy Hartman Electronically Signed By:Akin Venegas
[2021-09-01] MEDS: cloNIDine HCL 0.1 MG TABLET PO ×3 (08:01→19:48)
[2021-09-01] MEDS: Nicotine 21 MG PATCH.TD24 TRANSDERMA (08:01)
[2021-09-01] MEDS: LORazepam 1 MG TABLET PO ×4 (08:01→19:49)
[2021-09-01] MEDS: Gabapentin 300 MG CAPSULE PO ×3 (08:01→19:49)
[2021-09-01] MEDS: Multivitamin TABLET 1 TAB PO (08:01)
[2021-09-01] MEDS: Thiamine HCL 100 MG TABLET PO (08:01)
[2021-09-01] MEDS: methADONE HCl 20 MG/2 ML ORAL.CONC 65 MG PO (08:01)
[2021-09-01] MEDS: Nicotine Polacrilex 2 MG GUM BUCCAL ×5 (08:02→18:37)
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
[2021-09-01] MEDS: hydrOXYzine HCL 25 MG TABLET PO (14:03)
[2021-09-01] MEDS: FLUoxetine HCl 10 MG CAPSULE PO (16:54)
--- NOTE | 2021-09-01 18:38 | MHC.RECOVSUP ---
Met with Pt. Pt. states that he is doing a lot better .He said that his dose is holding him but still feels a little discomfort. States that he has been talking to his daughter feels that motivates him to stay positive.Still is interested in going to a residential program.He stated that he was able to put in a request at the [facility]. I told him that I would talk to someone there for him tomorrow.Also pt. wants to see a trolley coach driver when it is possible.I told him that I thais leave a note with the care team on this request..
[2021-09-01] MEDS: lamoTRIgine 25 MG TABLET PO (19:48)
[2021-09-01] MEDS: traZODone HCL 100 MG TABLET PO (19:48)
[2021-09-01] MEDS: Lurasidone HCl 20 MG TABLET PO (19:48)
[2021-09-01] MEDS: Prazosin HCL 1 MG CAPSULE 2 MG PO (19:49)
[2021-09-02 06:00] VITALS: BP 112/65; PULSE 62; RESP 16; TEMP 36.3; O2SAT 98
[2021-09-02] MEDS: methADONE HCl 20 MG/2 ML ORAL.CONC 70 MG PO (08:48)
[2021-09-02] MEDS: FLUoxetine HCl 10 MG CAPSULE PO (08:50)
[2021-09-02] MEDS: Gabapentin 300 MG CAPSULE PO ×3 (08:50→20:10)
[2021-09-02] MEDS: Thiamine HCL 100 MG TABLET PO (08:50)
[2021-09-02] MEDS: Multivitamin TABLET 1 TAB PO (08:50)
[2021-09-02] MEDS: Nicotine 21 MG PATCH.TD24 TRANSDERMA (08:51)
[2021-09-02] MEDS: LORazepam 1 MG TABLET PO ×2 (08:56→20:09)
[2021-09-02] MEDS: Nicotine Polacrilex 2 MG GUM BUCCAL ×4 (09:26→17:18)
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
[2021-09-02 11:27] VITALS: BP 128/88; PULSE 86
[2021-09-02] MEDS: hydrOXYzine HCL 50 MG TABLET PO (11:27)
[2021-09-02] MEDS: cloNIDine HCL 0.1 MG TABLET PO ×2 (11:27→20:08)
[2021-09-02] MEDS: Ibuprofen 600 MG TABLET PO ×2 (11:30→20:09)
[2021-09-02] MEDS: chlorproMAZINE HCl 25 MG TABLET 75 MG PO ×2 (14:28→20:10)
[2021-09-02 16:00] VITALS: PULSE 90
[2021-09-02 18:00] VITALS: BP 158/82; PULSE 89; RESP 16
[2021-09-02 20:08] VITALS: BP 158/82; PULSE 89
[2021-09-02] MEDS: Lurasidone HCl 20 MG TABLET PO (20:09)
[2021-09-02] MEDS: lamoTRIgine 25 MG TABLET PO (20:09)
[2021-09-02 20:10] VITALS: BP 158/82; PULSE 89
[2021-09-02] MEDS: Prazosin HCL 1 MG CAPSULE 2 MG PO (20:10)
[2021-09-02] MEDS: Nicotine Polacrilex 2 MG GUM 4 MG BUCCAL (20:10)
[2021-09-03 08:00] VITALS: PULSE 77
[2021-09-03] MEDS: FLUoxetine HCl 10 MG CAPSULE PO (08:16)
[2021-09-03] MEDS: Nicotine 21 MG PATCH.TD24 TRANSDERMA (08:16)
[2021-09-03] MEDS: methADONE HCl 20 MG/2 ML ORAL.CONC 70 MG PO (08:16)
[2021-09-03] MEDS: LORazepam 1 MG TABLET PO ×3 (08:16→21:36)
[2021-09-03] MEDS: Gabapentin 300 MG CAPSULE PO ×3 (08:16→21:36)
[2021-09-03] MEDS: Multivitamin TABLET 1 TAB PO (08:16)
[2021-09-03] MEDS: Thiamine HCL 100 MG TABLET PO (08:16)
[2021-09-03] MEDS: Nicotine Polacrilex 2 MG GUM 4 MG BUCCAL ×5 (08:21→21:38)
[2021-09-03 13:22] VITALS: BP 121/72; PULSE 92
[2021-09-03] MEDS: cloNIDine HCL 0.1 MG TABLET PO ×2 (13:22→21:33)
[2021-09-03] MEDS: hydrOXYzine HCL 50 MG TABLET PO ×2 (13:23→21:33)
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
[2021-09-03] MEDS: chlorproMAZINE HCl 25 MG TABLET 75 MG PO ×2 (14:33→21:35)
[2021-09-03 18:00] VITALS: BP 133/86; PULSE 77; TEMP 37.1; O2SAT 99
[2021-09-03 21:31] VITALS: BP 133/86; PULSE 77
[2021-09-03] MEDS: Prazosin HCL 1 MG CAPSULE 2 MG PO (21:31)
[2021-09-03 21:33] VITALS: BP 133/86; PULSE 77
[2021-09-03] MEDS: Lurasidone HCl 20 MG TABLET PO (21:33)
[2021-09-03] MEDS: lamoTRIgine 25 MG TABLET PO (21:33)
[2021-09-03] MEDS: traZODone HCL 100 MG TABLET PO (21:36)
[2021-09-04] MEDS: methADONE HCl 20 MG/2 ML ORAL.CONC 75 MG PO (08:34)
[2021-09-04] MEDS: Nicotine 21 MG PATCH.TD24 TRANSDERMA (08:36)
[2021-09-04] MEDS: Nicotine Polacrilex 2 MG GUM 4 MG BUCCAL ×4 (08:37→21:11)
[2021-09-04] MEDS: FLUoxetine HCl 10 MG CAPSULE PO (08:37)
[2021-09-04] MEDS: Thiamine HCL 100 MG TABLET PO (08:37)
[2021-09-04] MEDS: Gabapentin 300 MG CAPSULE PO ×3 (08:37→20:29)
[2021-09-04] MEDS: Multivitamin TABLET 1 TAB PO (08:37)
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
[2021-09-04] MEDS: hydrOXYzine HCL 50 MG TABLET PO ×2 (12:11→20:34)
[2021-09-04] MEDS: chlorproMAZINE HCl 25 MG TABLET 75 MG PO (12:11)
[2021-09-04] MEDS: LORazepam 1 MG TABLET PO ×2 (12:11→20:34)
[2021-09-04 15:50] VITALS: BP 127/64; PULSE 81; TEMP 36.4
[2021-09-04 20:25] VITALS: BP 136/66; PULSE 103; TEMP 36.3
[2021-09-04] MEDS: Lurasidone HCl 40 MG TABLET PO (20:29)
[2021-09-04] MEDS: lamoTRIgine 25 MG TABLET PO (20:30)
[2021-09-04 21:04] VITALS: BP 136/66; PULSE 103
[2021-09-04] MEDS: traZODone HCL 100 MG TABLET PO (21:04)
[2021-09-04] MEDS: Prazosin HCL 1 MG CAPSULE 2 MG PO (21:04)
[2021-09-04] MEDS: Mineral Oil/Petrolatum,White 106 GM Tube 1 APPL TOPICAL (21:07)
[2021-09-05] MEDS: Nicotine Polacrilex 2 MG GUM 4 MG BUCCAL ×7 (04:17→22:18)
[2021-09-05] MEDS: chlorproMAZINE HCl 25 MG TABLET 75 MG PO ×3 (04:17→22:15)
[2021-09-05 06:00] VITALS: BP 131/63; PULSE 97; RESP 16; TEMP 36.3; O2SAT 95
[2021-09-05] MEDS: methADONE HCl 20 MG/2 ML ORAL.CONC 75 MG PO (08:08)
[2021-09-05] MEDS: Thiamine HCL 100 MG TABLET PO (08:08)
[2021-09-05] MEDS: Nicotine 21 MG PATCH.TD24 TRANSDERMA (08:08)
[2021-09-05] MEDS: Gabapentin 300 MG CAPSULE PO ×3 (08:08→23:53)
[2021-09-05] MEDS: Multivitamin TABLET 1 TAB PO (08:08)
[2021-09-05] MEDS: LORazepam 1 MG TABLET PO ×2 (08:16→19:21)
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
[2021-09-05 19:19] VITALS: BP 126/60; PULSE 89
[2021-09-05] MEDS: cloNIDine HCL 0.1 MG TABLET PO (19:19)
--- NOTE | 2021-09-05 20:53 | P.CNHOSGPS_ITS ---
History of Present Illness Data of Consult Service Date: 09/05/21 Primary Care Provider: Milo Joshi MD HPI 6-year-old male with past medical history of hypertension, bipolar, MDD, PTSD and TBI who is admitted to [facility] for management of bipolar does well as depression, now has left facial as well as left jaw pain and swelling.We are as ked to see pt for this reason. pt reports that he has a jazlyn in his left jaw due to hisotry of trauma, and has now developed swelling and pain for past 2 days. he reports that he has tooth decay and tooth pain as well. he reports that his left molar is broken in half and he thinks that is the cause of it. he denies any fever no chills. no difficulty swallowing. all other ROS negative vitals reviewed stable Review of Systems Review of Systems: Yes all other systems are reviewed and are negative [facility] Medical History (Updated 09/06/21 @ 06:22 by Leanna Hobbs MD) Bipolar 2 disorder, major depressive episode Hypertension MDD (major depressive disorder), recurrent episode, moderate PTSD (post-traumatic stress disorder) TBI (traumatic brain injury) Family History (Updated 09/05/21 @ 20:57 by Leanna Hobbs MD) Other No pertinent family history Surgical History (Updated 09/05/21 @ 20:58 by Leanna Hobbs MD) History of mandibular surgery Social History Household Members: None Housing: Homeless Do you presently have visiting nurse or other home services: No Patient Tobacco Use Status: Current everyday Tobacco user Tobacco use type: Cigarette Cigarette Packs Per Day: 1 Cigarettes Per Day: 20.0 Smoked in Last 30 Days: Yes Patient Interested in Nicotine Replacement: Yes (gum) Patient Given Instructions on How to Stop Smoking: No (declined) Second Hand Smoke Exposure: No Use of substances other than those prescribed or required for medical reasons: Yes Substance Use Type: Crack/Cocaine, Heroin and Opiates Substance Use Frequency: Daily Last Used Substance: Days (ago) Currently Displaying Signs/Symptoms of Drug Intoxication Withdrawal: No Any prior treatment program specific to substance use: Yes Have you been hit, kicked, punched, or otherwise hurt by someone within the past year? If so, by whom?: No Do you feel safe in your current relationship?: No Current Relationship Is there a partner from a previous relationship who is making you feel unsafe now?: No Are you made to feel afraid or neglected: No Spiritual Healthcare Practices: n/a Yazdanism Healthcare Practices: n/a Cultural Healthcare Practices: n/a Advance Directives: No Advance Directives Information Provided: No Do you have thoughts of harming others: None Do you have a plan to hurt others: No Plan Recently lost weight without trying: No Eating poorly because of decreased appetite: No Nutrition Risks: No Nutritional Risk Poor oral hygiene: No service: No Sexual orientation: Straight/Heterosexual Meds Allergies Allergy/AdvReac Type Severity Reaction Status Date / Time amoxicillin [AMOXICILLIN] Allergy Unknown HIVES Verified 05/15/21 01:36 Active Medications: Current Medications Al Hydroxide/Mg Hydroxide (Magnesium Hydrox/Alum Hydrox 30 Ml Oral.Susp) 30 ml PO Q6H PRN PRN Reason: Heartburn/Nausea Chlorpromazine HCl (Chlorpromazine Hcl 25 Mg Tablet) 75 mg PO TID PRN PRN Reason: mod to severe anxiety Last Admin: 09/05/21 13:43 Dose: 75 mg Documented by: Clonidine HCl (Clonidine Hcl 0.1 Mg Tablet) 0.1 mg PO TID PRN; Protocol PRN Reason: withdrawal or anxiety Last Admin: 09/05/21 19:19 Dose: 0.1 mg Documented by: Gabapentin (Gabapentin 300 Mg Capsule) 300 mg PO TID PEDRO Last Admin: 09/05/21 16:18 Dose: 300 mg Documented by: Hydroxyzine HCl (Hydroxyzine Hcl 50 Mg Tablet) 50 mg PO TID PRN PRN Reason: Anxiety Last Admin: 09/04/21 20:34 Dose: 50 mg Documented by: Ibuprofen (Ibuprofen 600 Mg Tablet) 600 mg PO Q8H PRN PRN Reason: Pain, Mild (Pain Scale 1-3) Last Admin: 09/02/21 20:09 Dose: 600 mg Documented by: Lamotrigine (Lamotrigine 25 Mg Tablet) 25 mg PO BEDTIME PEDRO Last Admin: 09/04/21 20:30 Dose: 25 mg Documented by: Lorazepam (Lorazepam 1 Mg Tablet) 1 mg PO TID PRN PRN Reason: severe panic Last Admin: 09/05/21 19:21 Dose: 1 mg Documented by: Lurasidone HCl (Lurasidone Hcl 40 Mg Tablet) 40 mg PO BEDTIME PEDRO Last Admin: 09/04/21 20:29 Dose: 40 mg Documented by: Magnesium Hydroxide (Milk Of Magnesia 30 Ml Oral.Susp) 30 ml PO DAILY PRN PRN Reason: Constipation Methadone HCl (Methadone Hcl 20 Mg/2 Ml Oral.Conc) 75 mg PO DAILY [facility] Last Admin: 09/05/21 08:08 Dose: 75 mg Documented by: Multi-Ingred Cream/Lotion/Oil/Oint (Mineral Oil/Petrolatum,White 106 Gm Tube) 1 appl TOPICAL BID PEDRO; Protocol Last Admin: 09/05/21 08:31 Dose: Not Given Documented by: Multivitamins/Vitamin C (Multivitamin Tablet) 1 tab PO DAILY PEDRO Last Admin: 09/05/21 08:08 Dose: 1 tab Documented by: Nicotine (Nicotine 21 Mg Patch.Td24) 21 mg TRANSDERMA DAILY [facility] [place] Last Admin: 09/05/21 08:08 Dose: 21 mg Documented by: Nicotine Polacrilex (Nicotine Polacrilex 2 Mg Gum) 4 mg BUCCAL Q2H PRN PRN Reason: Nicotine Cravings Last Admin: 09/05/21 19:19 Dose: 4 mg Documented by: Prazosin HCl (Prazosin Hcl 1 Mg Capsule) 2 mg PO BEDTIME [facility]; Protocol Last Admin: 09/04/21 21:04 Dose: 2 mg Documented by: Thiamine HCl (Thiamine Hcl 100 Mg Tablet) 100 mg PO DAILY [facility] [place] Last Admin: 09/05/21 08:08 Dose: 100 mg Documented by: Trazodone HCl (Trazodone Hcl 100 Mg Tablet) 100 mg PO BEDTIME PRN PRN Reason: Insomnia Last Admin: 09/04/21 21:04 Dose: 100 mg Documented by: Home Medications Medication Instructions Recorded Confirmed Last Taken Type clonidine HCl 0.1 mg tablet 1 tab PO TID 08/26/21 08/26/21 Unknown History hydroxyzine HCl 25 mg tablet 1 tab PO TID 08/26/21 08/26/21 Unknown History prazosin 2 mg capsule 1 cap PO BEDTIME 08/26/21 08/26/21 Unknown History trazodone 50 mg tablet 2 tab PO BEDTIME PRN 08/26/21 08/26/21 Unknown History Results Labs CBC and Chem 7: 08/27/21 10:24 09/05/21 21:50 Assessment and Plan (1) Facial swelling: Status: Acute (2) Tooth ache: Status: Acute 36 yo M who is complaining of left tooth ache and facial swelling. # Facial swelling along the mandibular region - 2/2 tooth carries and decay - no evidence of abscess or facial cellulitis - CT shows dental carries at the left second mandibular molar with minmal apical periodontitis - I will empirically starting pt on clindamycin as he is allergic to amoxicillin,but pt will need evaluation and treatment by a dentist as this is ou t of my scope of specialty - risk of Cdiff is also noted with clinda but have limited options as pt allergic to amoxicillin - Psych contract attorney notified Physical Exam Vital Signs: Last Vital Signs Temp 97.3 F 09/05/21 06:00 Pulse 89 09/05/21 19:19 Resp 16 09/05/21 06:00 BP 126/60 09/05/21 19:19 Pulse Ox 95 09/05/21 06:00 BMI result Body Mass Index 24.4 Const General: cooperative and no acute distress Orientation/consciousness: patient oriented x3 HENMT Other: left tooth carries , no evidence of abscess left facial minimal edema at the mandibular region Eyes General: appearance normal, both eyes and all related structures Pupils: Equal, round and reactive pupils present Resp Effort & Inspection: normal respiratory effort Auscultation: clear to auscultation bilaterally Cardio Rate: regular rate Rhythm: regular rhythm GI Palpation (GI): Soft to palpation Auscultation: normal bowel sounds Skin General skin exam: no rashes or lesions noted Neuro General: patient oriented x3 Cranial nerves: Yes Equal, round and reactive pupils present Cognition (Neuro): normal cognition Extrem General: Yes normal to inspection and Yes no pedal edema
[2021-09-05 22:10] LABS: Anion Gap 11 (12-20); Blood Urea Nitrogen 27 mg/dL (9-16); Calcium 9.6 mg/dL (8.4-10.2); Carbon Dioxide 28 mmol/L (22-29); Chloride 101 mmol/L (96-108); Creatinine Clr Calc Pharmacy 140.5; Estimated Glomerular Filt Rate > 60; Glucose Random 94 mg/dL (60-115); Potassium 5.3 mmol/L (3.3-5.1); Sodium 135 mmol/L (135-145)
[2021-09-05 22:45] VITALS: BP 159/58; PULSE 80; TEMP 36.5
[2021-09-05] MEDS: iohexoL 350 MG/ML 100 ML INFUS..BTL 85 ML IV (23:38)
[2021-09-05] MEDS: Clindamycin HCL 150 MG CAPSULE 450 MG PO (23:51)
[2021-09-05 23:52] VITALS: BP 159/58; PULSE 80
[2021-09-05] MEDS: Prazosin HCL 1 MG CAPSULE 2 MG PO (23:52)
[2021-09-05] MEDS: Lurasidone HCl 40 MG TABLET PO (23:52)
[2021-09-05] MEDS: lamoTRIgine 25 MG TABLET PO (23:53)
[2021-09-05] MEDS: hydrOXYzine HCL 50 MG TABLET PO (23:57)
[2021-09-05] MEDS: Ibuprofen 600 MG TABLET PO (23:57)
[2021-09-05] MEDS: Mineral Oil/Petrolatum,White 106 GM Tube 1 APPL TOPICAL (23:59)
[2021-09-06 05:12] VITALS: BP 127/69; PULSE 79; RESP 17; TEMP 36.3; O2SAT 97
[2021-09-06] MEDS: Clindamycin HCL 150 MG CAPSULE 450 MG PO ×3 (05:24→21:03)
[2021-09-06] MEDS: Thiamine HCL 100 MG TABLET PO (08:56)
[2021-09-06] MEDS: methADONE HCl 20 MG/2 ML ORAL.CONC 75 MG PO (08:56)
[2021-09-06] MEDS: Gabapentin 300 MG CAPSULE PO ×3 (08:56→21:03)
[2021-09-06] MEDS: Multivitamin TABLET 1 TAB PO (08:56)
[2021-09-06] MEDS: Nicotine 21 MG PATCH.TD24 TRANSDERMA (08:56)
[2021-09-06] MEDS: Nicotine Polacrilex 2 MG GUM 4 MG BUCCAL ×5 (08:59→20:42)
[2021-09-06] MEDS: LORazepam 1 MG TABLET PO ×2 (09:40→20:59)
[2021-09-06 13:52] LABS: Anion Gap 15 (12-20); Blood Urea Nitrogen 25 mg/dL (9-16); Carbon Dioxide 23 mmol/L (22-29); Chloride 104 mmol/L (96-108); Potassium 5.3 mmol/L (3.3-5.1); Sodium 137 mmol/L (135-145)
[2021-09-06] MEDS: chlorproMAZINE HCl 25 MG TABLET 75 MG PO ×2 (14:29→18:12)
[2021-09-06 17:37] VITALS: BP 145/73; PULSE 97; RESP 18; TEMP 36; O2SAT 96
[2021-09-06] MEDS: hydrOXYzine HCL 50 MG TABLET PO (18:12)
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
[2021-09-06] MEDS: lamoTRIgine 25 MG TABLET PO (20:59)
[2021-09-06] MEDS: Lurasidone HCl 40 MG TABLET PO (20:59)
[2021-09-06 21:00] VITALS: BP 132/67; PULSE 96
[2021-09-06] MEDS: Prazosin HCL 1 MG CAPSULE 2 MG PO (21:00)
[2021-09-06] MEDS: traZODone HCL 100 MG TABLET PO (21:01)
[2021-09-06 21:02] VITALS: BP 132/67; PULSE 96
[2021-09-06] MEDS: cloNIDine HCL 0.1 MG TABLET PO (21:02)
[2021-09-07 06:00] VITALS: BP 127/62; PULSE 99; RESP 16; TEMP 36.6; O2SAT 98
[2021-09-07] MEDS: Clindamycin HCL 150 MG CAPSULE 450 MG PO ×3 (06:09→22:30)
[2021-09-07] MEDS: LORazepam 1 MG TABLET PO ×2 (09:07→19:34)
[2021-09-07] MEDS: methADONE HCl 20 MG/2 ML ORAL.CONC 75 MG PO (09:07)
[2021-09-07] MEDS: hydrOXYzine HCL 50 MG TABLET PO ×2 (09:07→22:30)
[2021-09-07] MEDS: Nicotine 21 MG PATCH.TD24 TRANSDERMA (09:07)
[2021-09-07] MEDS: Gabapentin 300 MG CAPSULE PO ×3 (09:08→22:30)
[2021-09-07] MEDS: Multivitamin TABLET 1 TAB PO (09:08)
[2021-09-07] MEDS: Nicotine Polacrilex 2 MG GUM 4 MG BUCCAL ×6 (09:08→22:30)
[2021-09-07] MEDS: Thiamine HCL 100 MG TABLET PO (09:08)
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
[2021-09-07] MEDS: chlorproMAZINE HCl 25 MG TABLET 75 MG PO ×2 (13:05→22:30)
[2021-09-07 18:00] VITALS: BP 130/61; PULSE 95
[2021-09-07] MEDS: traZODone HCL 100 MG TABLET PO (22:30)
[2021-09-07] MEDS: lamoTRIgine 25 MG TABLET PO (22:30)
[2021-09-07] MEDS: Lurasidone HCl 40 MG TABLET PO (22:30)
[2021-09-07 22:41] VITALS: BP 130/61; PULSE 95
[2021-09-07] MEDS: Prazosin HCL 1 MG CAPSULE 2 MG PO (22:41)
[2021-09-08 06:00] VITALS: BP 114/56; PULSE 79; RESP 18; TEMP 36.6; O2SAT 96
[2021-09-08] MEDS: Nicotine Polacrilex 2 MG GUM 4 MG BUCCAL ×7 (06:16→22:23)
[2021-09-08] MEDS: Clindamycin HCL 150 MG CAPSULE 450 MG PO ×3 (06:16→22:20)
[2021-09-08] MEDS: LORazepam 1 MG TABLET PO ×3 (06:47→22:23)
[2021-09-08] MEDS: methADONE HCl 20 MG/2 ML ORAL.CONC 75 MG PO (08:44)
[2021-09-08 08:45] VITALS: BP 121/61; PULSE 78
[2021-09-08] MEDS: Gabapentin 300 MG CAPSULE PO ×3 (08:45→22:22)
[2021-09-08] MEDS: cloNIDine HCL 0.1 MG TABLET PO (08:45)
[2021-09-08] MEDS: Multivitamin TABLET 1 TAB PO (08:46)
[2021-09-08] MEDS: Nicotine 21 MG PATCH.TD24 TRANSDERMA (08:47)
[2021-09-08] MEDS: Thiamine HCL 100 MG TABLET PO (08:50)
[2021-09-08] MEDS: Ibuprofen 600 MG TABLET PO (09:22)
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
[2021-09-08] MEDS: chlorproMAZINE HCl 25 MG TABLET 75 MG PO ×2 (13:28→18:18)
[2021-09-08] MEDS: Mineral Oil/Petrolatum,White 106 GM Tube 1 APPL TOPICAL (15:24)
[2021-09-08 22:20] VITALS: BP 116/69; PULSE 89; TEMP 36.1
[2021-09-08] MEDS: lamoTRIgine 25 MG TABLET PO (22:20)
[2021-09-08] MEDS: Lurasidone HCl 40 MG TABLET PO (22:21)
[2021-09-08] MEDS: Prazosin HCL 1 MG CAPSULE 2 MG PO (22:22)
[2021-09-08] MEDS: traZODone HCL 100 MG TABLET PO (22:23)
[2021-09-09] MEDS: Clindamycin HCL 150 MG CAPSULE 450 MG PO ×3 (08:13→21:36)
[2021-09-09] MEDS: Nicotine Polacrilex 2 MG GUM 4 MG BUCCAL ×6 (08:13→21:40)
[2021-09-09] MEDS: Nicotine 21 MG PATCH.TD24 TRANSDERMA (08:13)
[2021-09-09] MEDS: methADONE HCl 20 MG/2 ML ORAL.CONC 75 MG PO (08:13)
[2021-09-09] MEDS: LORazepam 1 MG TABLET PO ×3 (08:14→21:40)
[2021-09-09] MEDS: Gabapentin 300 MG CAPSULE PO ×3 (08:14→21:37)
[2021-09-09] MEDS: Ibuprofen 600 MG TABLET PO (08:14)
[2021-09-09] MEDS: Thiamine HCL 100 MG TABLET PO (08:14)
[2021-09-09] MEDS: Multivitamin TABLET 1 TAB PO (08:14)
[2021-09-09] MEDS: chlorproMAZINE HCl 25 MG TABLET 75 MG PO (15:05)
--- NOTE | 2021-09-09 17:03 | P.PNADD_ITS ---
Subjective Subjective Date of Service: 09/09/21 Reason For Visit: Recurrent Major Depression, Opiate Use Disorder-Se Interim History: patient currently prescribed methadone 75mg QD Last dose increase was 09/04 Reporting difficulty sleeping related to withdrawal sx (chills, sweats, restless ness). reports he wakes up sick and irritable until he receives AM dose He is tolerating current dose and is not showing any signs of sedation when seen by this creative writer He states that he has been most stable at 80mg and 100mg. Agreed to give additional 5mg in the evening and reassess. Review of Systems Constitutional: Reports as per [facility] Mental Status Exam Mental Status Exam Patient Appearance: Appropriate Patient Orientation: Person, Place, Time and Situation Level of Consciousness: Awake and Appropriate Patient Behavior: Appropriate Mood Description: Calm Affect Description: Blunted Speech Pattern: Clear Judgement: Fair Diagnostics Vital Signs (24Hr): Vital Signs - 24 hr 09/08/21 22:20 Temperature 97.0 F Pulse Rate 89 Blood Pressure 116/69 BMI result Body Mass Index 24.4 Labs Results: 08/27/21 10:24 09/06/21 13:06 Imaging Radiology Impressions: [facility] Impressions Face CT 09/05/21 23:35 IMPRESSION: 1. Dental caries at the left second mandibular molar with minimal apical periodontitis. 2. Left maxillary sinus mucosal disease with an air-fluid level. 3. A dense band of cement-like material at the anterior margin of the maxilla, consistent with a prior surgical procedure. No surrounding fluid collections are identified. 4. Intact plate and screw fixation construct at the left hemimandible Medications Medications Current Medications Al Hydroxide/Mg Hydroxide (Magnesium Hydrox/Alum Hydrox 30 Ml Oral.Susp) 30 ml PO Q6H PRN PRN Reason: Heartburn/Nausea Chlorpromazine HCl (Chlorpromazine Hcl 25 Mg Tablet) 75 mg PO TID PRN PRN Reason: mod to severe anxiety Last Admin: 09/09/21 15:05 Dose: 75 mg Documented by: Clindamycin HCl (Clindamycin Hcl 150 Mg Capsule) 450 mg PO TID [facility] Stop: 09/15/21 21:01 Last Admin: 09/09/21 15:04 Dose: 450 mg Documented by: Clonidine HCl (Clonidine Hcl 0.1 Mg Tablet) 0.1 mg PO TID PRN; Protocol PRN Reason: withdrawal or anxiety Last Admin: 09/08/21 08:45 Dose: 0.1 mg Documented by: Gabapentin (Gabapentin 300 Mg Capsule) 300 mg PO TID [facility] Last Admin: 09/09/21 15:04 Dose: 300 mg Documented by: Hydroxyzine HCl (Hydroxyzine Hcl 50 Mg Tablet) 50 mg PO TID PRN PRN Reason: Anxiety Last Admin: 09/07/21 22:30 Dose: 50 mg Documented by: Ibuprofen (Ibuprofen 600 Mg Tablet) 600 mg PO Q8H PRN PRN Reason: Pain, Mild (Pain Scale 1-3) Last Admin: 09/09/21 08:14 Dose: 600 mg Documented by: Lamotrigine (Lamotrigine 25 Mg Tablet) 25 mg PO BEDTIME [facility] Last Admin: 09/08/21 22:20 Dose: 25 mg Documented by: Lorazepam (Lorazepam 1 Mg Tablet) 1 mg PO TID PRN PRN Reason: Anxiety Severe Last Admin: 09/09/21 16:54 Dose: 1 mg Documented by: Lurasidone HCl (Lurasidone Hcl 40 Mg Tablet) 40 mg PO BEDTIME [facility] Last Admin: 09/08/21 22:21 Dose: 40 mg Documented by: Magnesium Hydroxide (Milk Of Magnesia 30 Ml Oral.Susp) 30 ml PO DAILY PRN PRN Reason: Constipation Methadone HCl (Methadone Hcl 20 Mg/2 Ml Oral.Conc) 75 mg PO DAILY [facility] Last Admin: 09/09/21 08:13 Dose: 75 mg Documented by: Multi-Ingred Cream/Lotion/Oil/Oint (Mineral Oil/Petrolatum,White 106 Gm Tube) 1 appl TOPICAL BID [facility]; Protocol Last Admin: 09/09/21 08:14 Dose: Not Given Documented by: Multivitamins/Vitamin C (Multivitamin Tablet) 1 tab PO DAILY [facility] Last Admin: 09/09/21 08:14 Dose: 1 tab Documented by: Nicotine (Nicotine 21 Mg Patch.Td24) 21 mg TRANSDERMA DAILY [facility] Last Admin: 09/09/21 08:13 Dose: 21 mg Documented by: Nicotine Polacrilex (Nicotine Polacrilex 2 Mg Gum) 4 mg BUCCAL Q2H PRN PRN Reason: Nicotine Cravings Last Admin: 09/09/21 16:54 Dose: 4 mg Documented by: Prazosin HCl (Prazosin Hcl 1 Mg Capsule) 2 mg PO BEDTIME [facility]; Protocol Last Admin: 09/08/21 22:22 Dose: 2 mg Documented by: Thiamine HCl (Thiamine Hcl 100 Mg Tablet) 100 mg PO DAILY [facility] Last Admin: 09/09/21 08:14 Dose: 100 mg Documented by: Trazodone HCl (Trazodone Hcl 100 Mg Tablet) 100 mg PO BEDTIME PRN PRN Reason: Insomnia Last Admin: 09/08/21 22:23 Dose: 100 mg Documented by: Allergies Allergies Allergy/AdvReac Type Severity Reaction Status Date / Time amoxicillin [AMOXICILLIN] Allergy Unknown HIVES Verified 05/15/21 01:36 Assessment & Plan Assessment & Plan (1) Opioid use disorder: Status: Acute Code(s): F11.90 - Opioid use, unspecified, uncomplicated Assessment and Plan: * 5mg methadone in the evening * reassess tomorrow Assessment and Plan: ? Assessment & Plan I spent __20____ minutes with the patient and/or on the patient floor today, greater than?50% of which was spent counseling/coordinating care.
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
[2021-09-09] MEDS: hydrOXYzine HCL 50 MG TABLET PO (19:01)
[2021-09-09 21:30] VITALS: BP 129/62; PULSE 92; TEMP 36.2
[2021-09-09] MEDS: Prazosin HCL 1 MG CAPSULE 2 MG PO (21:35)
[2021-09-09] MEDS: Lurasidone HCl 40 MG TABLET PO (21:35)
[2021-09-09] MEDS: lamoTRIgine 25 MG TABLET PO (21:37)
[2021-09-09] MEDS: methADONE HCl 20 MG/2 ML ORAL.CONC 5 MG PO (21:38)
[2021-09-09] MEDS: traZODone HCL 100 MG TABLET PO (21:42)
[2021-09-10] MEDS: Gabapentin 300 MG CAPSULE PO (08:30)
[2021-09-10] MEDS: Nicotine 21 MG PATCH.TD24 TRANSDERMA (08:30)
[2021-09-10] MEDS: Nicotine Polacrilex 2 MG GUM 4 MG BUCCAL (08:30)
[2021-09-10] MEDS: LORazepam 1 MG TABLET PO (08:30)
[2021-09-10] MEDS: Thiamine HCL 100 MG TABLET PO (08:30)
[2021-09-10] MEDS: Multivitamin TABLET 1 TAB PO (08:30)
[2021-09-10] MEDS: methADONE HCl 20 MG/2 ML ORAL.CONC 75 MG PO (08:31)
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
[2021-09-10] MEDS: methADONE HCl 5 MG TABLET PO (11:23)
[2021-09-10] MEDS: lamoTRIgine 25 MG TABLET PO (11:24)
[2021-09-10] MEDS: Naloxone HCl Nasal TAKE HOME 4 MG SPRAY NOSTRILALT (11:24)
== END 2021-09-10 11:47 | disposition home or self-care (01) | DRG 751 ==
LOC: HO.ED 18:00 → HO.PM5 08-27 15:18
PROVIDERS: Clinical Nurse Specialist Psychiatric/Mental Health; Internal Medicine; Physician Assistant; Admitting Provider Clinical Nurse Specialist Psychiatric/Mental Health, Adult; Emergency Provider Emergency Medicine; PCP Internal Medicine; Visit Provider Psychiatry & Neurology Psychiatry
DX: F33.1 Major depressive disorder, recurrent, moderate (principal); Z91.14 Patient's other noncompliance with medication regimen; F11.23 Opioid dependence with withdrawal; F43.10 Post-traumatic stress disorder, unspecified; K08.89 Other specified disorders of teeth and supporting structures; F17.210 Nicotine dependence, cigarettes, uncomplicated; Z20.822 Contact with and (suspected) exposure to COVID-19; Z87.820 Personal history of traumatic brain injury; Z59.02 Unsheltered homelessness; Z71.6 Tobacco abuse counseling; Z88.0 Allergy status to penicillin; Z79.899 Other long term (current) drug therapy
CPT/HCPCS: 36415; 70487; 80048; 80051; 80053; 80061; 80076; 80307; 82077; 82607; 82746; 83036; 83735; 84439; 84443; 84520; 85025; 87635; 93005; 99285; Q9967

== ENCOUNTER 2022-01-15 16:28 | Emergency (ER) | payer OTHER, SELFPAY ==
[2022-01-15 17:37] VITALS: BP 135/74; PULSE 92; RESP 18; TEMP 36.8; O2SAT 97; BMI 26.1
--- NOTE | 2022-01-15 17:39 | ED.PSYCH ---
HPI - Psych General Chief Complaint: Psychiatric Symptoms Stated Complaint: crisis Time Seen by Provider: 01/15/22 17:20 Source: patient Mode of arrival: ambulatory History of Present Illness HPI Narrative: 36-year-old male with a past medical history of bipolar, HTN, PTSD, TBI, substance abuse, presenting to the ED complaining of vague suicidal ideations, depression, and seeking detox for heroin and cocaine. States he is afraid to get to the point of suicide. Denies HI. admits to occasional EtOH use. Denies CP/SOB, abdominal pain, cough, fever MD complaint: feels depressed Onset (ago): unknown Related Data Home Medications Medication Instructions Recorded Confirmed lamotrigine 25 mg tablet 75 mg PO BEDTIME 01/15/22 01/15/22 Previous Rx's Medication Instructions Recorded chlorpromazine 25 mg tablet 75 mg PO TID PRN 30 Days #90 tab 09/10/21 gabapentin 300 mg capsule 300 mg PO TID 30 Days #90 cap 09/10/21 hydroxyzine HCl 50 mg tablet 50 mg PO TID PRN 30 Days #90 tab 09/10/21 lurasidone 40 mg tablet (Latuda) 40 mg PO BEDTIME 30 Days #30 tab 09/10/21 methadone 10 mg/mL oral 80 mg (8 mL) PO DAILY 30 Days #240 09/10/21 concentrate (Methadose) ml nicotine (polacrilex) 2 mg gum 4 mg BUCCAL Q2H PRN 30 Days #100 ea 09/10/21 nicotine 21 mg/24 hr daily 21 mg TRANSDERMAL DAILY PRN 28 09/10/21 transdermal patch Days #28 ea prazosin 2 mg capsule 2 mg PO BEDTIME 30 Days #30 cap 09/10/21 trazodone 100 mg tablet 100 mg PO BEDTIME PRN 30 Days #30 09/10/21 tab Allergies Allergy/AdvReac Type Severity Reaction Status Date / Time amoxicillin [AMOXICILLIN] Allergy Unknown HIVES Verified 05/15/21 01:36 Review of Systems Review of Systems: Constitutional: No Fever, No Chills, No Fatigue, No Malaise ENT/Mouth: No Ear Pain, No sore throat, No Rhinorrhea, No Swallowing Difficulty Eyes: No Eye Pain, No Swelling, No Redness Cardiovascular: No Chest Pain, No SOB, No Dyspnea on Exertion, No Orthopnea, No Edema, No Palpitations Respiratory: No Cough, No Sputum, No Dyspnea Gastrointestinal: No Nausea, No Vomiting, No Diarrhea, No Constipation, No Abdominal pain Genitourinary: No Dysuria, No Urinary Frequency, No Hematuria, No Flank Pain Musculoskeletal: No joint pain, No Myalgias, No Joint Swelling Skin: No Skin Lesions, No rash Neuro: No Weakness, No Numbness, No Dizziness, No Headache Psych: No Anxiety/Panic, + Depression, +vague SI, No HI Yes all other systems are reviewed and are negative [facility] Past Medical History Attestation statement: The following information was validated with the patient. Medical History Bipolar 2 disorder, major depressive episode Hypertension PTSD (post-traumatic stress disorder) TBI (traumatic brain injury) Surgical History History of mandibular surgery Family History Family History Other No pertinent family history Social History Social History Household Members: None Housing: Homeless Do you presently have visiting nurse or other home services: No Patient Tobacco Use Status: Current everyday Tobacco user Tobacco use type: Cigarette Cigarette Packs Per Day: 1 Cigarettes Per Day: 20.0 Second Hand Smoke Exposure: No Substance Use Type: Crack/Cocaine, Heroin and Opiates Advance Directives: No Advance Directives Information Provided: No Guardian: No service: No Sexual orientation: Straight/Heterosexual Physical Exam Vital Signs: Vital Signs: Last Vital Signs Temp 98.3 F 01/15/22 17:37 Pulse 92 01/15/22 17:37 Resp 18 01/15/22 17:37 BP 135/74 01/15/22 17:37 Pulse Ox 97 01/15/22 17:37 BMI result Body Mass Index 26.1 Const: Other: tearful General: cooperative, no acute distress, anxious and poor hygiene Orientation/consciousness: patient oriented x3 Limitations: no limitations HEENT: Head: Yes normal to inspection and Yes atraumatic Ears: hearing grossly normal bilaterally General nose exam: Normal external nose present Face and sinus: Yes normal facial exam Eyes: General: appearance normal, both eyes and all related structures EOM: EOMs intact bilaterally Neck: Neck: Yes normal visual inspection and Yes no meningeal signs Resp: Effort & Inspection: normal respiratory effort and no respiratory distress Auscultation: clear to auscultation bilaterally, no rales, no rhonchi and no wheezes Cardio: Rate: regular rate Heart sounds: S1 normal heart sound present and S2 normal heart sound present GI: Inspection: Yes normal to inspection Skin: Rashes: no rashes Wounds: no wounds Neuro: General: patient oriented x3, gait normal, tone normal, moves all extremities, no meningeal signs and CN's II-XI intact bilaterally Gait exam (Neuro): Normal gait present Extrem: General: Yes normal to inspection Course Course Course Narrative: - tox screen positive for opiates, fentanyl, benzos, and cocaine. Ethanol 106. -2140-- Patient was evaluated by care team and plan is for re-evaluation tomorrow. Physician obs initiated -199-- ED care transferred to Dr. Floyd pending care team re-evaluation in the morning MDM - Psych MDM Narrative Medical decision making narrative: 36-year-old male with a past medical history of bipolar, HTN, PTSD, TBI, substance abuse, presenting to the ED complaining of vague suicidal ideations, depression, and seeking detox for heroin and cocaine. on exam vital signs stable, NAD/nontoxic-appearing, anxious, depressed. concern for substance abuse versus SI /depression Plan: Drug screen, ethanol, [employer] baseball [employer] and crisis eval Medical Records Attestation: I reviewed the patient's medical records. Lab Data Attestation: I reviewed the patient's lab results. Labs: Lab Results 01/15/22 01/15/22 01/15/22 Range/Units 17:32 17:32 19:52 Urine Opiates Screen POSITIVE H (Not Detect) Urine Fentanyl Screen POSITIVE H (Not Detect) Ur Barbiturates Screen Not Detected (Not Detect) Ur Phencyclidine Scrn Not Detected (Not Detect) Ur Amphetamines Screen Not Detected (Not Detect) U Benzodiazepines Scrn POSITIVE H (Not Detect) Urine Cocaine Screen POSITIVE H (Not Detect) U Marijuana (THC) Screen Not Detected (Not Detect) Ethyl Alcohol 106 mg/dL COVID-19 ([facility]) Negative (Negative) COVID-19 Clin Com See Note Discharge Plan Discharge Clinical Impression: Substance abuse, Depressed Patient Disposition: Still a Patient Prescriptions: No Action lamotrigine 25 mg tablet 75 mg PO BEDTIME 0RF nicotine 21 mg/24 hr Patch 24 Hour 21 mg transdermal DAILY PRN (Reason: smoking cessation) 28 Days Qty: 28 0RF Rx Instructions: remove at bedtime nicotine (polacrilex) 2 mg Gum 4 mg buccal Q2H PRN (Reason: Nicotine Cravings) 30 Days Qty: 100 0RF hydroxyzine HCl 50 mg Tablet 50 mg PO TID PRN (Reason: mild Anxiety) 30 Days Qty: 90 0RF trazodone 100 mg Tablet 100 mg PO BEDTIME PRN (Reason: Insomnia) 30 Days Qty: 30 0RF chlorpromazine 25 mg Tablet 75 mg PO TID PRN (Reason: mod to severe anxiety) 30 Days Qty: 90 0RF gabapentin 300 mg Capsule 300 mg PO TID 30 Days Qty: 90 0RF methadone [Methadose] 10 mg/mL Concentrate 80 mg PO DAILY 30 Days Qty: 240 0RF prazosin 2 mg capsule 2 mg PO BEDTIME 30 Days Qty: 30 0RF Latuda 40 mg tablet 40 mg PO BEDTIME 30 Days Qty: 30 0RF Rx Instructions: take with food (at least 350 calories)
[2022-01-15 18:00] LABS: Amphetamine Screen Urine Not Detected (Not Detect); Barbiturates, Urine Not Detected (Not Detect); Benzodiazepines Screen Urine POSITIVE (Not Detect); Cannabinoid Screen Urine Not Detected (Not Detect); Cocaine Screen Urine POSITIVE (Not Detect); Fentanyl, urine POSITIVE (Not Detect); Opiate Screen Urine POSITIVE (Not Detect); Phencyclidine Screen Urine Not Detected (Not Detect)
[2022-01-15 18:17] LABS: IDNOW Serial# 16C4AD1C
[2022-01-15 18:18] LABS: COVID-19 Test Negative (Negative)
--- NOTE | 2022-01-15 18:46 | MHC.RECOVSUP ---
? Reason for consult:RECOVERY Support o Current location:[facility] o Identified substance use concern: Polysubstance - Seeking ATS (detox) - Support ? Intervention: o ATS bed search started/completed/in process o MAT started or to be started o Community resources provided o Harm reduction discussion ? Plan: o Follow up tomorrow o Patient awaiting crisis evaluation o Patient to follow up with [facility] after discharge ? Additional information:Patient is on Methadone, patient using polysubstance, patient is SI, patient is requesting to go to the 5th floor, patient does not believe he needs detox but a dual diagnosis program....which he was in. Patient using heroin and cocaine together. Had a harm reduction discussion. Gave patient community resources and a list of local therapist and referred him to [facility].
[2022-01-15 20:09] LABS: Ethanol 106 mg/dL
[2022-01-16 06:22] VITALS: BP 131/66; PULSE 56; RESP 16; TEMP 36.7; O2SAT 97
--- NOTE | 2022-01-16 06:30 | PC.NURSE ---
Patient slept through the night, no distress observed/reported, behavior appropriate and non concerning, med rec completed/pending provider's approval, Methadone clinic opens at 8 am, verification form completed, patient was assessed by care team, disposition pending at this time, VSS, will continue to monitor.
--- NOTE | 2022-01-16 07:14 | PC.NURSE ---
patient appears to remain asleep at present respirations are even and unlabored patient appears in no distress
--- NOTE | 2022-01-16 09:21 | PC.NURSE ---
verified with clinic that client got dosed at clinic yesterday ad given two take home bottles for doses 13 and 14th. patient went with me to locker where two bottles were located. one dose intact, the other dose bottle foil was open and part of dose missing. patient stated she got into it, suprised she didnt take both patient looked concerned when this was discovered but to t/w it is unclear whether client may have ingested addl dose or another person.
[2022-01-16] MEDS: methADONE HCl 20 MG/2 ML ORAL.CONC 40 MG PO ×2 (10:29→12:07)
--- NOTE | 2022-01-16 17:29 | MHC.RECOVSUP ---
Recovery Support note: Patient is a 36 year old Thai speaking male who presented to [facility] ED after a relapse. Patient is currently in the [facility] program and has been told he must complete detox before returning to program. Discussed case with patient's RN. Patient last received methadone on 01/15 and was given two take home bottles. One bottle was open and some content was gone. The other bottle was sealed. Plan for patient to receive half of his dose initially and the second half after a period of time. This screenplay writer met with patient to discuss treatment options. Patient is agreeable to going anywhere for detox. Patient referred to [facility] and completed phone intake. Patient transported via Lyft. Last dose letter provided.
== END 2022-01-16 12:37 | disposition home or self-care (01) ==
PROVIDERS: Physician Assistant; Emergency Provider Emergency Medicine; PCP Internal Medicine
DX: F32.A Depression, unspecified (principal); F11.20 Opioid dependence, uncomplicated; F19.10 Other psychoactive substance abuse, uncomplicated; F43.10 Post-traumatic stress disorder, unspecified; I10 Essential (primary) hypertension; Z87.820 Personal history of traumatic brain injury; Z20.822 Contact with and (suspected) exposure to COVID-19
CPT/HCPCS: 36415; 80307; 82077; 87635; 99284

== ENCOUNTER 2023-02-27 14:33 | Inpatient (IN) | payer OTHER, SELFPAY ==
[2023-02-27 14:41] VITALS: BP 160/88; BP 182/94; PULSE 74; PULSE 78; RESP 16; TEMP 36.8; O2SAT 94; O2SAT 95; BMI 31.2
--- NOTE | 2023-02-27 15:00 | PC.NURSE ---
pt changeed over on own, calm and cooperative, belongings brought to decon.
[2023-02-27 17:46] LABS: Appearance Urine Clear; Color Urine Dark Yellow; Glucose Urine UA Negative (Negative); Leukocyte Esterase Urine Trace (Negative); Nitrite Urine Negative (Negative); Specific Gravity - Urine >= 1.030 (1.005-1.025); UMIC TRIGGER UACC YES; Urine Blood Negative (Negative); Urine Ketones Trace mg/dL (Negative); Urine Protein Trace mg/dL (Neg-Trace)
[2023-02-27 17:55] LABS: Amphetamine Screen Urine Not Detected (Not Detect); Bacteria Urine None Seen (None Seen); Barbiturates, Urine Not Detected (Not Detect); Benzodiazepines Screen Urine POSITIVE (Not Detect); Cannabinoid Screen Urine POSITIVE (Not Detect); Cocaine Screen Urine POSITIVE (Not Detect); Fentanyl, urine POSITIVE (Not Detect); Hyaline Casts Urine 0-2 /LPF (0-2); Opiate Screen Urine POSITIVE (Not Detect); Phencyclidine Screen Urine Not Detected (Not Detect); RBC Urine 0-2 /HPF (0-2); Squamous Epithelial Cell Urine 0-2 /HPF (0-2); WBC Urine 0-5 /HPF (0-5)
[2023-02-27 17:57] LABS: Anion Gap 12 (12-20); Blood Urea Nitrogen 16 mg/dL (9-16); Calcium 9.6 mg/dL (8.4-10.2); Carbon Dioxide 27 mmol/L (22-29); Chloride 101 mmol/L (96-108); Creatinine Clr Calc Pharmacy 152.9; Estimated Glomerular Filt Rate > 60; Glucose Random 107 mg/dL (60-115); Potassium 3.7 mmol/L (3.3-5.1); Sodium 136 mmol/L (135-145)
[2023-02-27 18:28] LABS: Hematocrit 36.2 % (42.0-52.0); Hemoglobin 12.6 g/dl (14.0-18.0); Mean Corpuscular HGB Conc 34.8 g/dl (31.0-36.0); Mean Corpuscular Hemoglobin 31.7 pg (27.0-33.0); Mean Corpuscular Volume 91.2 fL (80.0-98.0); Mean Platelet Volume 9.6 fL (9.4-12.4); Platelet Count 304 X10*3/uL (160-400); Red Blood Count 3.97 X10*6/uL (4.60-5.80); Red Cell Distribution Width 13.1 % (11.0-16.0); White Blood Count 7.2 X10*3/uL (4.8-10.8)
[2023-02-27 18:40] LABS: Ethanol < 10 mg/dL
--- NOTE | 2023-02-27 19:17 | ED_ITS ---
HPI - Psych General Chief Complaint: Psychiatric Symptoms Stated Complaint: SI, SEC 12, ETOH Time Seen by Provider: 02/27/23 18:46 Source: patient and RN notes reviewed Mode of arrival: ambulatory Limitations: no limitations History of Present Illness HPI Narrative: This is a 38-year-old male, with a past medical history of PTSD, TBI, bipolar disorder, presented to the emergency department for evaluation of suicidal ideations. Patient reports that over the last several weeks he has been without his medications as his ex-fiancee has been using them. He states that he is all out of his medications and reports that his ?life is a mess?. He admits to having auditory hallucinations. He states that he has thought about jumping in front of a car. Denies homicidal ideations. He admits to using opioids. He also drinks alcohol typically drinks 1-2 sleeves of hard alcoholic nips a day. Denies fevers, chills, chest pain, shortness breath, abdominal pain, nausea, vomiting, or diarrhea. No other complaints or concerns at this time. MD complaint: suicidal ideation, feels depressed, substance abuse, hallucinations and alcohol abuse Duration: constant History of same: Yes Relieving factors: none Exacerbating factors: none Context: recent alcohol abuse, recent drug abuse, not taking psychiatric medications and significant life stressor Associated psychiatric symptoms: depression and suicidal ideation Associated symptoms: denies other symptoms Treatments prior to arrival: none If self harm: admits thoughts of self harm Related Data Home Medications Medication Instructions Recorded Confirmed clonidine HCl 0.1 mg tablet 0.1 mg PO TID PRN anxiety 02/28/23 02/28/23 gabapentin 400 mg capsule 400 mg PO TID 02/28/23 02/28/23 hydroxyzine pamoate 50 mg capsule 50 mg PO TID PRN anxiety 02/28/23 02/28/23 Previous Rx's Medication Instructions Recorded lurasidone 40 mg tablet (Latuda) 40 mg PO BEDTIME Bipolar 09/10/21 Depression 30 days #30 tabs methadone 10 mg/mL oral 80 mg (8 mL) PO DAILY 30 days #240 09/10/21 concentrate (Methadose) mL nicotine (polacrilex) 2 mg gum 4 mg buccal Q2H PRN Nicotine 09/10/21 Cravings 30 days #100 ea nicotine 21 mg/24 hr daily 21 mg transdermal DAILY PRN 09/10/21 transdermal patch smoking cessation 28 days #28 ea prazosin 2 mg capsule 2 mg PO BEDTIME 30 days #30 caps 09/10/21 trazodone 100 mg tablet 100 mg PO BEDTIME PRN Insomnia 30 09/10/21 days #30 tabs Allergies Allergy/AdvReac Type Severity Reaction Status Date / Time amoxicillin [AMOXICILLIN] Allergy Unknown HIVES Verified 05/15/21 01:36 Review of Systems Review of Systems: Yes all other systems are reviewed and are negative Constitutional: Constitutional: Reports as per [facility] Past Medical History Medical History (Updated 03/01/23 @ 18:01 by Cindy Hartman APRN) Bipolar 2 disorder, major depressive episode Hypertension Polysubstance use disorder PTSD (post-traumatic stress disorder) TBI (traumatic brain injury) Surgical History History of mandibular surgery Family History Family History Other No pertinent family history Social History Social History Household Members: None Housing: Homeless Do you presently have visiting nurse or other home services: No Alcohol intake: current Alcohol intake frequency: 3 or more drinks per day Alcohol type: beer and hard liquor Patient Tobacco Use Status: Current everyday Tobacco user Tobacco use type: Cigarette Cigarette Packs Per Day: 2 Cigarettes Per Day: 40.0 Smoked in Last 30 Days: Yes Patient Interested in Nicotine Replacement: Yes (Gum 4 mg and patch) Patient Given Instructions on How to Stop Smoking: No Second Hand Smoke Exposure: No Use of substances other than those prescribed or required for medical reasons: Yes Substance Use Type: Crack/Cocaine Substance Use Type Other:: fentanyl Substance Use Frequency: Occasionally Substance Use Frequency Other:: Used daily for past few days. Last Used Substance: Just Prior to Admission Currently Displaying Signs/Symptoms of Drug Intoxication Withdrawal: No Any prior treatment program specific to substance use: Yes Advance Directives: No Advance Directives Information Provided: Yes Healthcare Proxy: No Guardian: No Do you have thoughts of harming others: None Do you have a plan to hurt others: No Plan Recently lost weight without trying: Unsure Nutrition Risks: No Nutritional Risk Poor oral hygiene: No service: No Sexual orientation: Straight/Heterosexual Physical Exam Vital Signs: Vital Signs: Last Vital Signs Temp 97.8 F 03/02/23 20:45 Pulse 90 03/02/23 20:45 Resp 16 03/02/23 07:30 BP 136/81 03/02/23 20:45 Pulse Ox 98 03/02/23 20:45 O2 Del Method Room Air 03/02/23 20:45 BMI result Body Mass Index 31.2 Const: General: cooperative, comfortable and no acute distress Orientation/consciousness: patient oriented x3 Limitations: no limitations HEENT: Head: Yes normal to inspection, Yes normocephalic and Yes atraumatic Ears: hearing grossly normal bilaterally General nose exam: Normal external nose present Face and sinus: Yes normal facial exam Mouth: Normal oral and palatal mucosa present, oropharynx normal and moist mucous membranes Throat: Yes posterior oropharynx normal Eyes: General: appearance normal, both eyes and all related structures Eyelids: Yes eyelids normal Conjunctivae: conjunctivae normal Sclerae: sclerae normal Pupils: Equal, round and reactive pupils present EOM: EOMs intact bilaterally Neck: Neck: Yes normal visual inspection, Yes full ROM and Yes no lymphadenopathy Lymphatic: no lymphadenopathy noted Chest: Chest palpation & inspection: normal inspection of the chest Resp: Effort & Inspection: normal respiratory effort and able to speak in complete sentences Auscultation: clear to auscultation bilaterally, no crackles, no rales, no rhonchi and no wheezes Cardio: Rate: regular rate Rhythm: regular rhythm Heart sounds: S1 normal heart sound present and S2 normal heart sound present GI: Inspection: Yes normal to inspection Skin: General skin exam: no rashes or lesions noted Trauma: no lacerations or abrasions Wounds: no wounds Neuro: General: patient oriented x3 and moves all extremities Cranial nerves: Yes Equal, round and reactive pupils present Extrem: General: Yes normal to inspection Right upper extremity: normal to inspection Left upper extremity: normal to inspection Right lower extremity: normal to inspection Left lower extremity: normal to inspection Course Reevaluation(s) Reevaluation #1: Urine revealing positive for opiates, fentanyl, benzos, cocaine, and marijuana urine with trace leuk esterases otherwise no evidence of urinary tract infection, patient has no leukocytosis H&H stable, all other labs unremarkable. Patient seen by care team, and will re-evaluate in the morning. Patient remains stable. Reevaluation #2: No events overnight reported by staff, stable vital signs, sectioned [address], patient will be re-evaluated by care team today, bed search is underway, continue with physician observation. Time: 09:06 Medications Administered Generic Name Dose Route Start Last Admin Trade Name Freq PRN Reason Stop Dose Admin Acetaminophen 650 mg 02/28/23 14:16 03/01/23 18:17 Acetaminophen 325 Mg Tablet PO 650 mg Q6H PRN Administration Headache/Pain Mild Scale (1-3) Chlorpromazine HCl 75 mg 02/28/23 02:05 03/02/23 18:32 Chlorpromazine Hcl 25 Mg Tablet PO 75 mg TID PRN Administration mod to severe anxiety Clonidine HCl 0.1 mg 02/28/23 15:13 03/02/23 20:44 Clonidine Hcl 0.1 Mg Tablet PO 0.1 mg TID PRN Administration anxiety Protocol Gabapentin 400 mg 03/01/23 21:00 03/02/23 20:45 Gabapentin 400 Mg Capsule PO 400 mg TID PEDRO Administration Hydroxyzine HCl 50 mg 02/28/23 02:05 03/03/23 07:01 Hydroxyzine Hcl 50 Mg Tablet PO 50 mg TID PRN Administration mild Anxiety Lamotrigine 75 mg 02/28/23 02:15 03/02/23 20:45 Lamotrigine 25 Mg Tablet PO 75 mg BEDTIME PEDRO Administration Lorazepam 0.5 mg 02/28/23 19:00 03/02/23 20:52 Lorazepam 1 Mg Tablet PO 03/04/23 18:59 0.5 mg Q6H PRN Administration Breakthrough alcohol withdrawa Taper Lurasidone HCl 40 mg 02/28/23 02:15 03/02/23 20:45 Lurasidone Hcl 40 Mg Tablet PO 40 mg BEDTIME PEDRO Administration Nicotine 21 mg 02/28/23 02:05 03/02/23 11:21 Nicotine 21 Mg Patch.Td24 TRANSDERMA 21 mg DAILY PRN Administration smoking cessation Nicotine Polacrilex 4 mg 02/28/23 02:05 03/03/23 07:01 Nicotine Polacrilex 2 Mg Gum BUCCAL 4 mg Q2H PRN Administration Nicotine Cravings Prazosin HCl 2 mg 02/28/23 21:00 03/02/23 20:45 Prazosin Hcl 1 Mg Capsule PO 2 mg BEDTIME PEDRO Administration Protocol Discontinued Medications Generic Name Dose Route Start Last Admin Trade Name Samra PRN Reason Stop Dose Admin Chlordiazepoxide HCl 50 mg 02/27/23 20:12 02/27/23 20:40 Chlordiazepoxide Hcl 25 Mg Capsule PO 50 mg ONCE PRN Administration Alcohol Withdrawal Gabapentin 300 mg 02/28/23 02:15 03/01/23 14:27 Gabapentin 300 Mg Capsule PO 300 mg TID PEDRO Administration Ibuprofen 800 mg 03/02/23 21:07 03/03/23 05:51 Ibuprofen 800 Mg Tablet PO 03/02/23 21:08 Not Given ONCE ONE Lorazepam 2 mg 02/28/23 16:07 02/28/23 16:11 Lorazepam 1 Mg Tablet PO 02/28/23 16:08 2 mg ONCE ONE Administration Methadone HCl 30 mg 02/27/23 20:10 02/27/23 20:39 Methadone Hcl 20 Mg/2 Ml Oral.Conc PO 02/27/23 20:11 30 mg ONCE ONE Administration Methadone HCl 75 mg 02/28/23 10:23 02/28/23 10:36 Methadone Hcl 20 Mg/2 Ml Oral.Conc PO 02/28/23 10:24 75 mg ONCE ONE Administration Methadone HCl 50 mg 03/02/23 08:57 03/02/23 09:13 Methadone Hcl 20 Mg/2 Ml Oral.Conc PO 03/02/23 08:58 50 mg ONCE ONE Administration Medical Decision Making Medical Decision Making [facility] Narrative: 38-year-old male presenting to the emergency department with complaints of suicidal ideations and medication noncompliance. He admits to opioid and alcohol abuse. On arrival, vital signs within normal limits. Plan: Labs, UA, urine drug screen, care team Differential Diagnosis Differential Diagnoses: The differential diagnosis associated with the presentation includes Suicidal ideation, polysubstance abuse, alcohol intoxication, alcohol abuse, UTI Lab Data [facility] Lab Attestation statement: I reviewed the patient's lab results. 02/27/23 17:35 02/27/23 17:35 Labs: Lab Results 02/27/23 02/27/23 02/27/23 Range/Units 17:35 17:35 17:35 WBC 7.2 (4.8-10.8) X10*3/uL RBC 3.97 L (4.60-5.80) X10*6/uL Hgb 12.6 L (14.0-18.0) g/dl Hct 36.2 L (42.0-52.0) % MCV 91.2 (80.0-98.0) fL MCH 31.7 (27.0-33.0) pg MCHC 34.8 (31.0-36.0) g/dl RDW 13.1 (11.0-16.0) % Plt Count 304 (160-400) X10*3/uL MPV 9.6 (9.4-12.4) fL Absolute Nucleated RBC 0.000 (0.0-0.012) X10*3/uL Nucleated RBC % (auto) 0.0 (0.0-0.2) /100WBC Sodium 136 (135-145) mmol/L Potassium 3.7 D (3.3-5.1) mmol/L Chloride 101 (96-108) mmol/L Carbon Dioxide 27 (22-29) mmol/L Anion Gap 12 (12-20) BUN 16 (9-16) mg/dL Creatinine 0.81 (0.5-1.4) mg/dL Estim Creat Clear Calc 152.9 Estimated GFR > 60 Random Glucose 107 (60-115) mg/dL Calcium 9.6 (8.4-10.2) mg/dL Urine Color Dark Yellow Urine Appearance Clear Urine pH 6.0 (5.0-9.0) Ur Specific [place] >= 1.030 H (1.005-1.025) Urine Protein Trace (Neg-Trace) mg/dL Urine Glucose (UA) Negative (Negative) mg/dL Urine Ketones Trace (Negative) mg/dL Urine Blood Negative (Negative) Urine Nitrite Negative (Negative) Ur Leukocyte Esterase Trace H (Negative) Urine RBC 0-2 (0-2) /HPF Urine WBC 0-5 (0-5) /HPF Ur Squamous Epith Cells 0-2 (0-2) /HPF Urine Bacteria None Seen (None Seen) Hyaline Casts 0-2 (0-2) /LPF Urine Opiates Screen (Not Detect) Urine Fentanyl Screen (Not Detect) Ur Barbiturates Screen (Not Detect) Ur Phencyclidine Scrn (Not Detect) Ur Amphetamines Screen (Not Detect) U Benzodiazepines Scrn (Not Detect) Urine Cocaine Screen (Not Detect) U Marijuana (THC) Screen (Not Detect) Ethyl Alcohol < 10 mg/dL COVID-19 (JC) (Negative) COVID-19 Clin Com 02/27/23 02/28/23 Range/Units 17:35 10:23 WBC (4.8-10.8) X10*3/uL RBC (4.60-5.80) X10*6/uL Hgb (14.0-18.0) g/dl Hct (42.0-52.0) % MCV (80.0-98.0) fL MCH (27.0-33.0) pg MCHC (31.0-36.0) g/dl RDW (11.0-16.0) % Plt Count (160-400) X10*3/uL MPV (9.4-12.4) fL Absolute Nucleated RBC (0.0-0.012) X10*3/uL Nucleated RBC % (auto) (0.0-0.2) /100WBC Sodium (135-145) mmol/L Potassium (3.3-5.1) mmol/L Chloride (96-108) mmol/L Carbon Dioxide (22-29) mmol/L Anion Gap (12-20) BUN (9-16) mg/dL Creatinine (0.5-1.4) mg/dL Estim Creat Clear Calc Estimated GFR Random Glucose (60-115) mg/dL Calcium (8.4-10.2) mg/dL Urine Color Urine Appearance Urine pH (5.0-9.0) Ur Specific [place] (1.005-1.025) Urine Protein (Neg-Trace) mg/dL Urine Glucose (UA) (Negative) mg/dL Urine Ketones (Negative) mg/dL Urine Blood (Negative) Urine Nitrite (Negative) Ur Leukocyte Esterase (Negative) Urine RBC (0-2) /HPF Urine WBC (0-5) /HPF Ur Squamous Epith Cells (0-2) /HPF Urine Bacteria (None Seen) Hyaline Casts (0-2) /LPF Urine Opiates Screen POSITIVE H (Not Detect) Urine Fentanyl Screen POSITIVE H (Not Detect) Ur Barbiturates Screen Not Detected (Not Detect) Ur Phencyclidine Scrn Not Detected (Not Detect) Ur Amphetamines Screen Not Detected (Not Detect) U Benzodiazepines Scrn POSITIVE H (Not Detect) Urine Cocaine Screen POSITIVE H (Not Detect) U Marijuana (THC) Screen POSITIVE H (Not Detect) Ethyl Alcohol mg/dL COVID-19 (JC) Negative (Negative) COVID-19 Clin Com See Note Radiology Impression Discussion of test interpretation with radiology: I have reviewed the radiologist's reading. External Record Review External record reviewed: Inpatient record, Office record, Outpatient record, Prior outpatient labs, Prior outpatient radiology, Primary care record and Outside ED record Discharge Plan Discharge Clinical Impression: Opioid use disorder Patient Disposition: Admitted As Inpatient Interventions: Admission Worksheet (ED) Last Done: 02/28/23 15:36 Discharge Date/Time: 02/28/23 15:43
[2023-02-27 19:41] VITALS: RESP 16
--- NOTE | 2023-02-27 19:43 | PC.NURSE ---
1914: contact made to Sarah BENÍTEZ regarding status of initial eval. Per Sarah, she will be over shortly.
--- NOTE | 2023-02-27 19:56 | PC.NURSE ---
PA at bedside at this time for eval.
--- NOTE | 2023-02-27 20:13 | PC.NURSE ---
Plan at this time: Methadone 30mg PO will be order as a 1 time dose. Librium will be ordered for etoh withdrawals.
[2023-02-27] MEDS: methADONE HCl 20 MG/2 ML ORAL.CONC 30 MG PO (20:39)
[2023-02-27] MEDS: chlordiazePOXIDE HCl 25 MG CAPSULE 50 MG PO (20:40)
[2023-02-27 22:00] VITALS: RESP 18
--- NOTE | 2023-02-28 | ECG_ITS ---
Test Reason : CHECK PROLONG QT Blood Pressure : / mmHG Vent. Rate : 057 BPM Atrial Rate : 057 BPM P-R Int : 146 ms QRS Dur : 092 ms QT Int : 422 ms P-R-T Axes : 019 039 050 degrees QTc Int : 410 ms Sinus bradycardia Otherwise normal ECG When compared with ECG of 01-SEP-2021 10:07, No significant change was found Referred By: Daniel Marroquin Electronically Signed By:AMARI WORTHY
[2023-02-28 01:55] VITALS: BP 138/79; PULSE 67; RESP 16; TEMP 36.8; O2SAT 97
[2023-02-28 05:00] VITALS: RESP 16
[2023-02-28 06:00] VITALS: RESP 18
--- NOTE | 2023-02-28 09:30 | PC.NURSE ---
This senior writer called and patient last dose at [facility] was February 17 and has been getting his methadone at [facility] instead, I spoke to nurse at [facility] and last dose was 75mg on 02/23/23 per nursing staff. Form was faxed to pharmacy at 09:10am
[2023-02-28] MEDS: chlorproMAZINE HCl 25 MG TABLET 75 MG PO (10:22)
[2023-02-28] MEDS: Gabapentin 300 MG CAPSULE PO ×3 (10:22→20:01)
--- NOTE | 2023-02-28 10:31 | HE.PHANOTE ---
Addendum entered by Bonifacio Nolan RPh 03/02/23 08:57: last given 02/23 @ 0351 Original Note: methadone verified as 75 mg from [facility]
[2023-02-28] MEDS: methADONE HCl 20 MG/2 ML ORAL.CONC 75 MG PO (10:36)
[2023-02-28 10:44] LABS: COVID-19 Test Negative (Negative); IDNOW Serial# 08D9AD1C
--- NOTE | 2023-02-28 11:01 | PHA.MEDREC ---
Pharmacy Consult ? Medication Reconciliation Pharmacy has completed the medication reconciliation. spoke with patient and he confirmed the medications he was taking before. He said the last time he was regularly taking them was about a month ago. Claim history shows he has not picked up since end of last August. He was previously taking lamotrigine and thorazine but records suggest that this was over a year ago. Patient states that his latuda was increased to 40mg when he was last taking it.
[2023-02-28 12:34] VITALS: BP 118/73; PULSE 60; RESP 14; TEMP 36.3; O2SAT 92
--- NOTE | 2023-02-28 12:42 | PC.NURSE ---
Patient is currently sleeping but arousable vitals taken, does not have any open areas, no problems urinating. tigered Dr. Marroquin requesting a PRN order for librium for withdrawls.
[2023-02-28 15:45] VITALS: BP 136/77; PULSE 68; RESP 18; TEMP 36.6; O2SAT 94
[2023-02-28] MEDS: LORazepam 1 MG TABLET 2 MG PO (16:11)
--- NOTE | 2023-02-28 16:41 | PC.ADMIT ---
Pt is a 38 year old male who arrived to the [facility] secondary to making vague SI statements at [facility]. D/t believed intoxication, pt was transported on a sec 12 to [facility]. Was making vague SI statements about not being able to stay on the streets any longer and wishes he could go to sleep and never wake up. Pt has been off his meds for more than a month. Pt is COVID negative, UTOX Positive for opioids, cocaine, THC, and alcohol. Pt is on a CIWA as pt drinks 2 sleeves of nips a day, Pt given 2 mg ativan per MD orders for CIWA of 15. During admission assessment, pt was falling asleep answering questions. Pt oriented to the unit and asked for a book and to go to bed. Pt is calm and cooperative. Provider notified of admission, orders are placed. Begin treatment plan and monitor for safety.
[2023-02-28] MEDS: Nicotine Polacrilex 2 MG GUM 4 MG BUCCAL (18:30)
[2023-02-28 19:50] VITALS: BP 124/70; PULSE 66; TEMP 36.6; O2SAT 96
[2023-02-28] MEDS: Lurasidone HCl 40 MG TABLET PO (20:00)
[2023-02-28] MEDS: Prazosin HCL 1 MG CAPSULE 2 MG PO (20:01)
[2023-02-28] MEDS: lamoTRIgine 25 MG TABLET 75 MG PO (20:01)
[2023-03-01] MEDS: LORazepam 1 MG TABLET 0.5 MG PO ×3 (09:23→18:16)
[2023-03-01] MEDS: Gabapentin 300 MG CAPSULE PO ×2 (09:23→14:27)
[2023-03-01] MEDS: chlorproMAZINE HCl 25 MG TABLET 75 MG PO ×2 (09:23→18:18)
[2023-03-01 09:26] VITALS: BP 140/71; PULSE 84; RESP 18; TEMP 37.1; O2SAT 98
[2023-03-01 09:41] LABS: Estimated Average Glucose 85 mg/dL; Hemoglobin A1c % 4.6 %
--- NOTE | 2023-03-01 10:15 | P.HPPS_ITS ---
HPI Date of Service: 03/01/23 Chief Complaint: Suicidal ideation Sources of Information: patient interviewed, chart reviewed and crisis/core team assessment reviewed HPI Subjective Notes: [place]ner Warning and Conditional Voluntary Healthcare Proxy: No Guardianship: No Medical Problems Affecting Mental Status: No Narrative: 38 yo male, history of PTSD, Bipolar Disorder, Type II, TBI, Opiate Use Disorder presents with SI and intoxication from [facility]. Pt reports a recent termination with his girlfriend due to infidelity and being non compliant with medications for over four weeks. Pt agreed to meet, is engaged and forthcoming, stating, I feel terrified and anxious, acknowledges SI without plan, no hx of suicide attempts. Reports he has been living on the street for the past few days. He was asked to leave girlfriend's home in [place]. She has placed a restraining order on him, they will go to court in [place] in the near future, pt unsure of this specific date. Pt reports he does not know where to begin, what to do, or how to do it. Needing assistance re-establishing meds, finding housing, getting back on SSDI and EBT along with establishing a relationship with [facility]. Past Psychiatric History: IP: 2-3 Numerous detox admissions OP: Telehealth, but I don't know the agency Trials: Latuda, Lamictal, Vistaril, Thorazine, Gabapentin, Clonidine Medical Evaluation Reviewed: Yes [facility] Medical History (Updated 03/01/23 @ 18:01 by Cindy Hartman APRN) Bipolar 2 disorder, major depressive episode Hypertension Polysubstance use disorder PTSD (post-traumatic stress disorder) TBI (traumatic brain injury) Surgical History History of mandibular surgery Narrative: History of back surgery Family History: Mental Health Substance use disorder Uncle suicided Social History: Born in [place]. Pt is an only child. 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 History of several incarcerations No current probation Upcoming court date in [place] with ex-partner Substance History: Alcohol Opiates-currently on Methadone Toxicology positive for opiates, fentanyl, benzodiazepines, cocaine, cannabis Trauma History: I have had a lot of trauma in my life Diagnostics Vital Signs (24Hr): Vital Signs - 24 hr 02/28/23 12:34 02/28/23 15:45 02/28/23 19:50 Temperature 97.3 F 97.8 F 97.8 F Pulse Rate 60 68 66 Respiratory Rate 14 18 Blood Pressure 118/73 136/77 124/70 Pulse Oximetry 92 94 96 Oxygen Delivery Method Room Air Room Air Room Air 03/01/23 09:26 Temperature 98.8 F Pulse Rate 84 Respiratory Rate 18 Blood Pressure 140/71 H Pulse Oximetry 98 Oxygen Delivery Method Room Air BMI result Body Mass Index 31.2 Labs 02/27/23 17:35 02/27/23 17:35 Labs: Laboratory Results - last 48 hr 02/27/23 02/27/23 02/27/23 17:35 17:35 17:35 WBC 7.2 RBC 3.97 L Hgb 12.6 L Hct 36.2 L MCV 91.2 MCH 31.7 MCHC 34.8 RDW 13.1 Plt Count 304 MPV 9.6 Absolute Nucleated RBC 0.000 Nucleated RBC % (auto) 0.0 Sodium 136 Potassium 3.7 D Chloride 101 Carbon Dioxide 27 Anion Gap 12 BUN 16 Creatinine 0.81 Estim Creat Clear Calc 152.9 Estimated GFR > 60 Random Glucose 107 Estimat Average Glucose Hemoglobin A1c % Calcium 9.6 Urine Color Dark Yellow Urine Appearance Clear Urine pH 6.0 Ur Specific Rebuck >= 1.030 H Urine Protein Trace Urine Glucose (UA) Negative Urine Ketones Trace Urine Blood Negative Urine Nitrite Negative Ur Leukocyte Esterase Trace H Urine RBC 0-2 Urine WBC 0-5 Ur Squamous Epith Cells 0-2 Urine Bacteria None Seen Hyaline Casts 0-2 Urine Opiates Screen Urine Fentanyl Screen Ur Barbiturates Screen Ur Phencyclidine Scrn Ur Amphetamines Screen U Benzodiazepines Scrn Urine Cocaine Screen U Marijuana (THC) Screen Ethyl Alcohol < 10 COVID-19 (JC) COVID-19 Clin Com 02/27/23 02/28/23 03/01/23 17:35 10:23 08:32 WBC RBC Hgb Hct MCV MCH MCHC RDW Plt Count MPV Absolute Nucleated RBC Nucleated RBC % (auto) Sodium Potassium Chloride Carbon Dioxide Anion Gap BUN Creatinine Estim Creat Clear Calc Estimated GFR Random Glucose Estimat Average Glucose 85 Hemoglobin A1c % 4.6 Calcium Urine Color Urine Appearance Urine pH Ur Specific Rebuck Urine Protein Urine Glucose (UA) Urine Ketones Urine Blood Urine Nitrite Ur Leukocyte Esterase Urine RBC Urine WBC Ur Squamous Epith Cells Urine Bacteria Hyaline Casts Urine Opiates Screen POSITIVE H Urine Fentanyl Screen POSITIVE H Ur Barbiturates Screen Not Detected Ur Phencyclidine Scrn Not Detected Ur Amphetamines Screen Not Detected U Benzodiazepines Scrn POSITIVE H Urine Cocaine Screen POSITIVE H U Marijuana (THC) Screen POSITIVE H Ethyl Alcohol COVID-19 (JC) Negative COVID-19 Clin Com See Note Meds/Allergies Meds Home Medications Medication Instructions Recorded Confirmed Type clonidine HCl 0.1 mg tablet 0.1 mg PO TID PRN anxiety 02/28/23 02/28/23 History gabapentin 400 mg capsule 400 mg PO TID 02/28/23 02/28/23 History hydroxyzine pamoate 50 mg capsule 50 mg PO TID PRN anxiety 02/28/23 02/28/23 History Allergies Allergies Allergy/AdvReac Type Severity Reaction Status Date / Time amoxicillin [AMOXICILLIN] Allergy Unknown HIVES Verified 05/15/21 01:36 Mental Status Exam Mental Status Exam Patient Appearance: Fatigued Patient Orientation: Person, Place, Time and Situation Level of Consciousness: Alert Patient Behavior: Talkative, Cooperative, Good Eye Contact and Crying Mood Description: Depressed Affect Description: Flat Patient Cognition Impaired: No Ability to Follow Directions: Good Speech Pattern: Spontaneous Speech Memory Description: Episodic Impaired Hallucinations: None Perceptual Disturbances: Depersonalization and Derealization Thought Process: Rumination Thought Content: positive for Perseveration Depressive Symptoms: Increased Anxiety, Hopelessness, Feelings of Guilt, Unhappiness, Increased Fatigue, Thoughts of /Suicide, Low Self Esteem, Loss of Energy and Difficulty Concentrating Judgement: Fair Assessment & Plan Assessment & Plan (1) Bipolar 2 disorder, major depressive episode: Status: Acute Code(s): F31.81 - Bipolar II disorder (2) PTSD (post-traumatic stress disorder): Status: Chronic Code(s): F43.10 - Post-traumatic stress disorder, unspecified (3) TBI (traumatic brain injury): Status: Chronic Code(s): S06.9X9A - Unspecified intracranial injury with loss of consciousness of unspecified duration, initial encounter (4) Opioid use disorder: Status: Acute Code(s): F11.90 - Opioid use, unspecified, uncomplicated (5) Polysubstance use disorder: Status: Acute Code(s): F19.90 - Other psychoactive substance use, unspecified, uncomplicated Plan 38 yo male, history of PTSD, Bipolar Disorder, Type 2, TBI, Opiate Use Disorder with history of Methadone, Polysubstance Use disorder to ER with SI and intoxication from [facility]. Main precipitants currently-loss of relationship and non compliance with medicine regime for approximately one month. Plan: Addiction Consult- Pt with hx of Methadone use, considering re-starting this Continue Clonidine, Hydroxyzine, Lamictal, Latuda, Prazosin. Increase Gabapentin to 400 mg tid Collateral contacts as needed Pt would like to apply for [facility] admission Pt would also like to apply for SSDI, EBT and DMH. Will begin to provide resources so he may begin these processes. Patient educated on: medication risk/benefits and therapeutic strategies Informed Consent: understands Reason for continued inpatient stay Substantial Risk for: harm to self, inability to function and rapid decompensation Statement Statement: I have reviewed the history and physical and performed a pertinent examination on my patient. No changes have occurred unless specified. If the History and Physical was not performed prior to admission, the Hospitalist's service will be consulted for completing the admission physical. Time Spent With Patient Time: Total time managing care of this patient today ____ minutes.
[2023-03-01 10:20] LABS: Cholesterol 159 mg/dL; HDL Cholesterol 48 mg/dL; LDL Cholesterol Calculated 93 mg/dl; Triglycerides 94 mg/dL
[2023-03-01 10:23] LABS: Free T4 (Free Thyroxine) 0.92 ng/dL (0.71-1.85); Thyroid Stimulating Hormone 1.35 uIU/mL (0.32-4.0)
[2023-03-01 11:19] LABS: Folate 5.5 ng/mL (> or = 4.0); Vitamin B12 505 pg/mL (200-900)
[2023-03-01 18:00] VITALS: BP 140/65; PULSE 92; TEMP 35.8; O2SAT 97
[2023-03-01] MEDS: cloNIDine HCL 0.1 MG TABLET PO (18:17)
[2023-03-01] MEDS: Nicotine Polacrilex 2 MG GUM 4 MG BUCCAL ×2 (18:17→20:44)
[2023-03-01] MEDS: Acetaminophen 325 MG TABLET 650 MG PO (18:17)
[2023-03-01] MEDS: hydrOXYzine HCL 50 MG TABLET PO (20:44)
[2023-03-01] MEDS: Lurasidone HCl 40 MG TABLET PO (23:04)
[2023-03-01] MEDS: Prazosin HCL 1 MG CAPSULE 2 MG PO (23:04)
[2023-03-01] MEDS: lamoTRIgine 25 MG TABLET 75 MG PO (23:04)
[2023-03-01] MEDS: Gabapentin 400 MG CAPSULE PO (23:05)
[2023-03-02 07:30] VITALS: BP 140/85; PULSE 95; RESP 16; TEMP 36.3; O2SAT 97
[2023-03-02] MEDS: Gabapentin 400 MG CAPSULE PO ×3 (08:57→20:45)
[2023-03-02] MEDS: Nicotine Polacrilex 2 MG GUM 4 MG BUCCAL ×5 (08:58→20:45)
--- NOTE | 2023-03-02 08:59 | P.EN_ITS ---
Event Note Date of Service: 03/02/23 Event Note: Addiction consult placed for patient to reestablish methadone Discussed with pharmacy --verified that last dose on 02/23 75mg. Chart review shows that he received one 75mg dose on 02/28 and nothing on 03/01. Seen by inbound sales manager who noted rhinorrhea, restlessness, irritability. Plan: -restart methadone at 50mg today -65mg on 03/03 -75 mg on 03/04 Time Spent With Patient Time: Total time managing care of this patient today ____ minutes.
[2023-03-02] MEDS: methADONE HCl 20 MG/2 ML ORAL.CONC 50 MG PO (09:13)
[2023-03-02] MEDS: chlorproMAZINE HCl 25 MG TABLET 75 MG PO ×2 (10:39→18:32)
[2023-03-02] MEDS: Nicotine 21 MG PATCH.TD24 TRANSDERMA (11:21)
[2023-03-02] MEDS: LORazepam 1 MG TABLET 0.5 MG PO ×2 (13:00→20:52)
[2023-03-02 15:03] VITALS: BP 132/84; PULSE 94
[2023-03-02] MEDS: cloNIDine HCL 0.1 MG TABLET PO ×2 (15:04→20:44)
[2023-03-02] MEDS: hydrOXYzine HCL 50 MG TABLET PO ×2 (15:04→20:44)
--- NOTE | 2023-03-02 16:53 | HO.PSYCHPN ---
Subjective Subjective Date of Service: 03/02/23 Reason For Visit: Suicidal ideation Subjective Notes: Conditional Voluntary Healthcare Proxy: No Guardianship: No Medical Problems Affecting Mental Status: No Interim History: Reports symptoms of withdrawal are decreasing Full review of medications, symptoms, options for treatment Reports feeling some improvement and hopes for CSS admit to [facility]. Tolerating Methadone titration. Medication Compliance: Yes Side effects from medications: No Attending Groups: Yes Review of Systems Acute medical concerns: No Medical Review of Systems: unchanged Mental Status Exam Mental Status Exam Patient Appearance: Fatigued Patient Orientation: Person, Place, Time and Situation Level of Consciousness: Alert Patient Behavior: Talkative, Cooperative and Good Eye Contact Mood Description: Depressed Affect Description: Flat Patient Cognition Impaired: No Ability to Follow Directions: Good Speech Pattern: Spontaneous Speech Memory Description: Episodic Impaired Hallucinations: None Thought Process: Rumination Thought Content: positive for Perseveration, positive for Suicidal Ideation (denies) and positive for Homicidal Ideation (denies) Depressive Symptoms: Increased Anxiety, Low Self Esteem and Difficulty Concentrating Judgement: Good Diagnostics Vital Signs (24Hr): Vital Signs - 24 hr 03/01/23 18:00 03/02/23 07:30 03/02/23 15:03 Temperature 96.4 F L 97.3 F Pulse Rate 92 95 94 Respiratory Rate 16 Blood Pressure 140/65 H 140/85 H 132/84 Pulse Oximetry 97 97 Oxygen Delivery Method Room Air Room Air BMI result Body Mass Index 31.2 Labs 02/27/23 17:35 02/27/23 17:35 Labs: Laboratory Results - last 48 hr 03/01/23 03/01/23 03/01/23 08:12 08:12 08:32 Estimat Average Glucose 85 Hemoglobin A1c % 4.6 Triglycerides 94 Cholesterol 159 LDL Cholesterol, Calc 93 HDL Cholesterol 48 Vitamin B12 505 Folate 5.5 TSH 1.35 Free T4 0.92 Medications Medications Current Medications Acetaminophen (Acetaminophen 325 Mg Tablet) 650 mg PO Q6H PRN PRN Reason: Headache/Pain Mild Scale (1-3) Last Admin: 03/01/23 18:17 Dose: 650 mg Al Hydroxide/Mg Hydroxide (Magnesium Hydrox/Alum Hydrox 30 Ml Oral.Susp) 30 ml PO Q6H PRN PRN Reason: Heartburn/Nausea Chlorpromazine HCl (Chlorpromazine Hcl 25 Mg Tablet) 75 mg PO TID PRN PRN Reason: mod to severe anxiety Last Admin: 03/02/23 10:39 Dose: 75 mg Clonidine HCl (Clonidine Hcl 0.1 Mg Tablet) 0.1 mg PO TID PRN; Protocol PRN Reason: anxiety Last Admin: 03/02/23 15:04 Dose: 0.1 mg Gabapentin (Gabapentin 400 Mg Capsule) 400 mg PO TID PEDRO Last Admin: 03/02/23 15:03 Dose: 400 mg Hydroxyzine HCl (Hydroxyzine Hcl 50 Mg Tablet) 50 mg PO TID PRN PRN Reason: mild Anxiety Last Admin: 03/02/23 15:04 Dose: 50 mg Lamotrigine (Lamotrigine 25 Mg Tablet) 75 mg PO BEDTIME PEDRO Last Admin: 03/01/23 23:04 Dose: 75 mg Lorazepam (Lorazepam 1 Mg Tablet) 1 mg PO Q6H PRN; Taper PRN Reason: Breakthrough alcohol withdrawa Stop: 03/04/23 18:59 Last Admin: 03/02/23 13:00 Dose: 1 mg Lurasidone HCl (Lurasidone Hcl 40 Mg Tablet) 40 mg PO BEDTIME PEDRO Last Admin: 03/01/23 23:04 Dose: 40 mg Magnesium Hydroxide (Milk Of Magnesia 30 Ml Oral.Susp) 30 ml PO DAILY PRN PRN Reason: Constipation Methadone HCl (Methadone Hcl 20 Mg/2 Ml Oral.Conc) 65 mg PO ONCE ONE Stop: 03/03/23 09:01 Methadone HCl (Methadone Hcl 20 Mg/2 Ml Oral.Conc) 75 mg PO DAILY PEDRO Nicotine (Nicotine 21 Mg Patch.Td24) 21 mg TRANSDERMA DAILY PRN PRN Reason: smoking cessation Last Admin: 03/02/23 11:21 Dose: 21 mg Nicotine Polacrilex (Nicotine Polacrilex 2 Mg Gum) 4 mg BUCCAL Q2H PRN PRN Reason: Nicotine Cravings Last Admin: 03/02/23 15:04 Dose: 4 mg Pharmacy Consult (Consult Rx Perform Med Rec) 1 each MISCELLANE ONCE PRN PRN Reason: Consult order Prazosin HCl (Prazosin Hcl 1 Mg Capsule) 2 mg PO BEDTIME PEDRO; Protocol Last Admin: 03/01/23 23:04 Dose: 2 mg Trazodone HCl (Trazodone Hcl 100 Mg Tablet) 100 mg PO BEDTIME PRN PRN Reason: Insomnia Allergies Allergies Allergy/AdvReac Type Severity Reaction Status Date / Time amoxicillin [AMOXICILLIN] Allergy Unknown HIVES Verified 05/15/21 01:36 Assessment & Plan Assessment & Plan (1) Bipolar 2 disorder, major depressive episode: Status: Acute Code(s): F31.81 - Bipolar II disorder (2) PTSD (post-traumatic stress disorder): Status: Chronic Code(s): F43.10 - Post-traumatic stress disorder, unspecified (3) TBI (traumatic brain injury): Status: Chronic Code(s): S06.9X9A - Unspecified intracranial injury with loss of consciousness of unspecified duration, initial encounter (4) Opioid use disorder: Status: Acute Code(s): F11.90 - Opioid use, unspecified, uncomplicated (5) Polysubstance use disorder: Status: Acute Code(s): F19.90 - Other psychoactive substance use, unspecified, uncomplicated Plan 38 yo male, history of PTSD, Bipolar Disorder, Type 2, TBI, Opiate Use Disorder with history of Methadone, Polysubstance Use disorder to ER with SI and intoxication from [facility]. Main precipitants currently-loss of relationship and non compliance with medicine regime for approximately one month. Plan: Addiction Consult- Pt with hx of Methadone use, considering re-starting this Continue Clonidine, Hydroxyzine, Lamictal, Latuda, Prazosin. Increase Gabapentin to 400 mg tid Collateral contacts as needed Pt would like to apply for [facility] admission Pt would also like to apply for SSDI, EBT and DMH. Will begin to provide resources so he may begin these processes. 03/02/23- Continue current plan. Patient educated on: medication risk/benefits Informed Consent: understands Reason for continued inpatient stay Substantial Risk for: rapid decompensation Time Spent With Patient Time: Total time managing care of this patient today ____ minutes.
[2023-03-02 20:45] VITALS: BP 136/81; PULSE 90; TEMP 36.6; O2SAT 98
[2023-03-02] MEDS: lamoTRIgine 25 MG TABLET 75 MG PO (20:45)
[2023-03-02] MEDS: Prazosin HCL 1 MG CAPSULE 2 MG PO (20:45)
[2023-03-02] MEDS: Lurasidone HCl 40 MG TABLET PO (20:45)
[2023-03-03] MEDS: Nicotine Polacrilex 2 MG GUM 4 MG BUCCAL ×7 (07:01→21:59)
[2023-03-03] MEDS: hydrOXYzine HCL 50 MG TABLET PO (07:01)
[2023-03-03 08:20] VITALS: BP 136/73; PULSE 66; RESP 18; TEMP 36.1; O2SAT 96
[2023-03-03] MEDS: methADONE HCl 20 MG/2 ML ORAL.CONC 65 MG PO (08:23)
[2023-03-03] MEDS: Gabapentin 400 MG CAPSULE PO (08:23)
[2023-03-03] MEDS: LORazepam 1 MG TABLET 0.5 MG PO (08:39)
[2023-03-03] MEDS: chlorproMAZINE HCl 25 MG TABLET 75 MG PO ×4 (08:39→22:02)
[2023-03-03] MEDS: Nicotine 21 MG PATCH.TD24 TRANSDERMA (09:10)
[2023-03-03] MEDS: Gabapentin 300 MG CAPSULE 600 MG PO ×2 (14:13→20:02)
[2023-03-03] MEDS: LORazepam 0.5 MG TABLET PO ×2 (14:14→20:05)
--- NOTE | 2023-03-03 14:57 | MHC.RECOVRN ---
Met with pt in group room to check in and provide support. Pt received 65 mg methadone today, plan to resume usual dose of 75 mg tomorrow. Pt denies withdrawal symptoms, appears comfortable. Pt reports he had not gone to the [facility] x 5 days due to recurrence. 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 After issues arose with partner, pt returned to substance use. Pt believes he still has his job and [facility] [place]. Pt was told by [facility] director oncology he needs 20 days in recovery in order to move in. Pt future oriented and looking forward to entering back into recovery. Denies questions or concerns for t/w. Discussed with Supriya Blanchard APRN.
--- NOTE | 2023-03-03 16:51 | P.PNPSI_ITS ---
Subjective Subjective Date of Service: 03/03/23 Reason For Visit: Suicidal ideation Subjective Notes: Conditional Voluntary Healthcare Proxy: No Guardianship: No Medical Problems Affecting Mental Status: No Interim History: Full review of medications and efficacy with pt. Discussed nightmare reports and options for treatment. He will consider. Applications from team pending with Romana Chen and Kip Tolerating Methadone increase. Gabapentin and Chlorpromazine dosages adjusted Pt, later in the day approached tw and Eugenio KRAMER to discuss discharge 03/04. Pt's employer has offered him a place to live while he awaits a program. He will be able to make program contact and return to work. Medication Compliance: Yes Side effects from medications: No Attending Groups: Yes Review of Systems Acute medical concerns: No Medical Review of Systems: unchanged Mental Status Exam Mental Status Exam Patient Appearance: Appropriate Patient Orientation: Person, Place, Time and Situation Level of Consciousness: Alert Patient Behavior: Talkative, Cooperative and Good Eye Contact Mood Description: Flat Affect Description: Flat Patient Cognition Impaired: No Ability to Follow Directions: Good Speech Pattern: Spontaneous Speech Memory Description: Episodic Impaired Hallucinations: None Delusions: Not Present Thought Process: Goal Oriented Thought Content: positive for [place], positive for Circumstantial, positive for Goal Oriented, positive for Suicidal Ideation (denies) and positive for Homicidal Ideation (denies) Depressive Symptoms: Low Self Esteem Abnormal Motor Activity Signs and Symptoms: Restlessness Judgement: Good Diagnostics Vital Signs (24Hr): Vital Signs - 24 hr 03/02/23 20:45 03/03/23 08:20 Temperature 97.8 F 97.0 F Pulse Rate 90 66 Respiratory Rate 18 Blood Pressure 136/81 136/73 Pulse Oximetry 98 96 Oxygen Delivery Method Room Air Room Air BMI result Body Mass Index 31.2 Labs 02/27/23 17:35 02/27/23 17:35 Medications Medications Current Medications Acetaminophen (Acetaminophen 325 Mg Tablet) 650 mg PO Q6H PRN PRN Reason: Headache/Pain Mild Scale (1-3) Last Admin: 03/01/23 18:17 Dose: 650 mg Al Hydroxide/Mg Hydroxide (Magnesium Hydrox/Alum Hydrox 30 Ml Oral.Susp) 30 ml PO Q6H PRN PRN Reason: Heartburn/Nausea Chlorpromazine HCl (Chlorpromazine Hcl 25 Mg Tablet) 75 mg PO TID PRN PRN Reason: mod to severe anxiety Last Admin: 03/03/23 08:39 Dose: 75 mg Chlorpromazine HCl (Chlorpromazine Hcl 25 Mg Tablet) 75 mg PO TID [facility] Last Admin: 03/03/23 14:13 Dose: 75 mg Clonidine HCl (Clonidine Hcl 0.1 Mg Tablet) 0.1 mg PO TID PRN; Protocol PRN Reason: anxiety Last Admin: 03/02/23 20:44 Dose: 0.1 mg Gabapentin (Gabapentin 300 Mg Capsule) 600 mg PO TID PEDRO Last Admin: 03/03/23 14:13 Dose: 600 mg Hydroxyzine HCl (Hydroxyzine Hcl 50 Mg Tablet) 50 mg PO TID PRN PRN Reason: mild Anxiety Last Admin: 03/03/23 07:01 Dose: 50 mg Lamotrigine (Lamotrigine 25 Mg Tablet) 75 mg PO BEDTIME PEDRO Last Admin: 03/02/23 20:45 Dose: 75 mg Lorazepam (Lorazepam 1 Mg Tablet) 0.5 mg PO Q6H PRN; Taper PRN Reason: Breakthrough alcohol withdrawa Stop: 03/04/23 18:59 Last Admin: 03/03/23 08:39 Dose: 0.5 mg Lorazepam (Lorazepam 0.5 Mg Tablet) 0.5 mg PO TID [facility] Last Admin: 03/03/23 14:14 Dose: 0.5 mg Lurasidone HCl (Lurasidone Hcl 40 Mg Tablet) 40 mg PO BEDTIME [facility] Last Admin: 03/02/23 20:45 Dose: 40 mg Magnesium Hydroxide (Milk Of Magnesia 30 Ml Oral.Susp) 30 ml PO DAILY PRN PRN Reason: Constipation Methadone HCl (Methadone Hcl 20 Mg/2 Ml Oral.Conc) 75 mg PO DAILY PEDRO Nicotine (Nicotine 21 Mg Patch.Td24) 21 mg TRANSDERMA DAILY PRN PRN Reason: smoking cessation Last Admin: 03/03/23 09:10 Dose: 21 mg Nicotine Polacrilex (Nicotine Polacrilex 2 Mg Gum) 4 mg BUCCAL Q2H PRN PRN Reason: Nicotine Cravings Last Admin: 03/03/23 15:43 Dose: 4 mg Pharmacy Consult (Consult Rx Perform Med Rec) 1 each MISCELLANE ONCE PRN PRN Reason: Consult order Prazosin HCl (Prazosin Hcl 1 Mg Capsule) 3 mg PO BEDTIME PEDRO; Protocol Trazodone HCl (Trazodone Hcl 100 Mg Tablet) 100 mg PO BEDTIME PRN PRN Reason: Insomnia Allergies Allergies Allergy/AdvReac Type Severity Reaction Status Date / Time amoxicillin [AMOXICILLIN] Allergy Unknown HIVES Verified 05/15/21 01:36 Assessment & Plan Assessment & Plan (1) Bipolar 2 disorder, major depressive episode: Status: Acute Code(s): F31.81 - Bipolar II disorder (2) PTSD (post-traumatic stress disorder): Status: Chronic Code(s): F43.10 - Post-traumatic stress disorder, unspecified (3) TBI (traumatic brain injury): Status: Chronic Code(s): S06.9X9A - Unspecified intracranial injury with loss of consciousness of unspecified duration, initial encounter (4) Opioid use disorder: Status: Acute Code(s): F11.90 - Opioid use, unspecified, uncomplicated (5) Polysubstance use disorder: Status: Acute Code(s): F19.90 - Other psychoactive substance use, unspecified, uncomplicated Plan 38 yo male, history of PTSD, Bipolar Disorder, Type 2, TBI, Opiate Use Disorder with history of Methadone, Polysubstance Use disorder to ER with SI and intoxica tion from [facility]. Main precipitants currently-loss of relationship and non compliance with medicine regime for approximately one month. Plan: Addiction Consult- Pt with hx of Methadone use, considering re-starting this Continue Clonidine, Hydroxyzine, Lamictal, Latuda, Prazosin. Increase Gabapentin to 400 mg tid Collateral contacts as needed Pt would like to apply for [facility] admission Pt would also like to apply for SSDI, EBT and [facility]. Will begin to provide resources so he may begin these processes. 03/03/23: Tentative discharge for 03/04. Tolerating Methadone titration Titration of Gabapentin and scheduling of Chlorpromazine for nightmares, anxiety Patient educated on: medication risk/benefits and therapeutic strategies Informed Consent: understands Reason for continued inpatient stay Substantial Risk for: rapid decompensation Time Spent With Patient Time: Total time managing care of this patient today ____ minutes.
--- NOTE | 2023-03-03 18:48 | PC.NURSE ---
Patient given a urine collection container.
[2023-03-03 19:55] VITALS: BP 135/89; PULSE 88; TEMP 36.2; O2SAT 97
[2023-03-03 19:58] LABS: Amphetamine Screen Urine Not Detected (Not Detect); Barbiturates, Urine Not Detected (Not Detect); Benzodiazepines Screen Urine POSITIVE (Not Detect); Cannabinoid Screen Urine Not Detected (Not Detect); Cocaine Screen Urine Not Detected (Not Detect); Fentanyl, urine POSITIVE (Not Detect); Opiate Screen Urine Not Detected (Not Detect); Phencyclidine Screen Urine Not Detected (Not Detect)
[2023-03-03] MEDS: Lurasidone HCl 40 MG TABLET PO (20:02)
[2023-03-03] MEDS: Prazosin HCL 1 MG CAPSULE 3 MG PO (20:03)
[2023-03-03] MEDS: lamoTRIgine 25 MG TABLET 75 MG PO (20:03)
[2023-03-03] MEDS: traZODone HCL 100 MG TABLET PO (21:59)
[2023-03-04 07:00] VITALS: BMI 29.9
[2023-03-04 08:15] VITALS: BP 135/79; PULSE 94; RESP 18; TEMP 36.3; O2SAT 97
[2023-03-04] MEDS: Nicotine Polacrilex 2 MG GUM 4 MG BUCCAL (08:26)
[2023-03-04] MEDS: chlorproMAZINE HCl 25 MG TABLET 75 MG PO (08:26)
[2023-03-04] MEDS: Gabapentin 300 MG CAPSULE 600 MG PO (08:26)
[2023-03-04] MEDS: methADONE HCl 20 MG/2 ML ORAL.CONC 75 MG PO (08:26)
[2023-03-04] MEDS: LORazepam 0.5 MG TABLET PO (08:26)
[2023-03-04] MEDS: Nicotine 21 MG PATCH.TD24 TRANSDERMA (08:27)
--- NOTE | 2023-03-04 17:22 | P.DS_ITS ---
DS: Providers Provider Date of Service: 03/04/23 Date of admission: 02/28/23 14:16 Date of discharge: 03/04/23 Primary care physician: Unknown Physician Admitting clinician: Cindy Hartman Attending physician on admission: Colin Ellison Consults: 03/01/23 18:08 Addiction Medicine Routine Consulting Provider: Addiction Covering Reason for consultation: Hx of Methadone, pt intersted in re-starting Has provider been notified: No Attending physician on discharge: Colin Ellison Discharging clinician: Cindy Hartman DS: Diagnosis Discharge Diagnosis (1) Bipolar 2 disorder, major depressive episode: Status: Acute (2) PTSD (post-traumatic stress disorder): Status: Chronic (3) TBI (traumatic brain injury): Status: Chronic (4) Opioid use disorder: Status: Acute (5) Polysubstance use disorder: Status: Acute DS: Medications Discharge Medications Home Medications: Previous Rx's Medication Instructions Recorded chlorpromazine 25 mg tablet 75 mg PO TID PRN mod to severe 03/04/23 anxiety #21 tabs clonidine HCl 0.1 mg tablet 0.1 mg PO TID PRN anxiety #21 tabs 03/04/23 gabapentin 600 mg tablet 600 mg PO TID #90 tabs 03/04/23 hydroxyzine pamoate 50 mg capsule 50 mg PO TID PRN anxiety #21 caps 03/04/23 lamotrigine 25 mg tablet 75 mg PO BEDTIME #90 tabs 03/04/23 lurasidone 40 mg tablet (Latuda) 40 mg PO BEDTIME Bipolar 03/04/23 Depression 30 days #30 tabs methadone 10 mg/mL oral 75 mg (7.5 mL) PO DAILY #0 mL 03/04/23 concentrate (Methadose) nicotine (polacrilex) 2 mg gum 4 mg buccal Q2H PRN Nicotine 03/04/23 Cravings 30 days #100 ea nicotine 21 mg/24 hr daily 21 mg transdermal DAILY PRN 03/04/23 transdermal patch smoking cessation 28 days #28 ea prazosin 1 mg capsule 3 mg PO BEDTIME #42 caps 03/04/23 trazodone 100 mg tablet 100 mg PO BEDTIME PRN Insomnia 30 03/04/23 days #30 tabs Mental Status Exam Mental Status Exam Patient Appearance: Appropriate Patient Orientation: Person, Place, Time and Situation Level of Consciousness: Alert Patient Behavior: Talkative, Cooperative and Good Eye Contact Mood Description: Flat Affect Description: Flat Patient Cognition Impaired: No Ability to Follow Directions: Good Speech Pattern: Spontaneous Speech Memory Description: Episodic Impaired Hallucinations: None Delusions: Not Present Thought Process: Goal Oriented Thought Content: positive for [place], positive for Circumstantial, positive for Goal Oriented, positive for Suicidal Ideation (denies) and positive for Homicidal Ideation (denies) Depressive Symptoms: Low Self Esteem Abnormal Motor Activity Signs and Symptoms: Restlessness Judgement: Good Data Data Completed and Pending Completed studies during hospitalization [Text1]: 02/27/23 02/27/23 02/27/23 17:35 17:35 17:35 WBC 7.2 RBC 3.97 L Hgb 12.6 L Hct 36.2 L MCV 91.2 MCH 31.7 MCHC 34.8 RDW 13.1 Plt Count 304 MPV 9.6 Absolute Nucleated RBC 0.000 Nucleated RBC % (auto) 0.0 Sodium 136 Potassium 3.7 D Chloride 101 Carbon Dioxide 27 Anion Gap 12 BUN 16 Creatinine 0.81 Estim Creat Clear Calc 152.9 Estimated GFR > 60 Random Glucose 107 Estimat Average Glucose Hemoglobin A1c % Calcium 9.6 Triglycerides Cholesterol LDL Cholesterol, Calc HDL Cholesterol Vitamin B12 Folate TSH Free T4 Urine Color Dark Yellow Urine Appearance Clear Urine pH 6.0 Ur Specific [place] >= 1.030 H Urine Protein Trace Urine Glucose (UA) Negative Urine Ketones Trace Urine Blood Negative Urine Nitrite Negative Ur Leukocyte Esterase Trace H Urine RBC 0-2 Urine WBC 0-5 Ur Squamous Epith Cells 0-2 Urine Bacteria None Seen Hyaline Casts 0-2 Urine Opiates Screen Urine Fentanyl Screen Ur Barbiturates Screen Ur Phencyclidine Scrn Ur Amphetamines Screen U Benzodiazepines Scrn Urine Cocaine Screen U Marijuana (THC) Screen Ethyl Alcohol < 10 COVID-19 ([facility]) COVID-19 Clin Com 02/27/23 02/28/23 03/01/23 17:35 10:23 08:12 WBC RBC Hgb Hct MCV MCH MCHC RDW Plt Count MPV Absolute Nucleated RBC Nucleated RBC % (auto) Sodium Potassium Chloride Carbon Dioxide Anion Gap BUN Creatinine Estim Creat Clear Calc Estimated GFR Random Glucose Estimat Average Glucose Hemoglobin A1c % Calcium Triglycerides 94 Cholesterol 159 LDL Cholesterol, Calc 93 HDL Cholesterol 48 Vitamin B12 Folate TSH 1.35 Free T4 0.92 Urine Color Urine Appearance Urine pH Ur Specific [place] Urine Protein Urine Glucose (UA) Urine Ketones Urine Blood Urine Nitrite Ur Leukocyte Esterase Urine RBC Urine WBC Ur Squamous Epith Cells Urine Bacteria Hyaline Casts Urine Opiates Screen POSITIVE H Urine Fentanyl Screen POSITIVE H Ur Barbiturates Screen Not Detected Ur Phencyclidine Scrn Not Detected Ur Amphetamines Screen Not Detected U Benzodiazepines Scrn POSITIVE H Urine Cocaine Screen POSITIVE H U Marijuana (THC) Screen POSITIVE H Ethyl Alcohol COVID-19 ([facility]) Negative COVID-19 Clin Com See Note 03/01/23 03/01/23 03/03/23 08:12 08:32 18:47 WBC RBC Hgb Hct MCV MCH MCHC RDW Plt Count MPV Absolute Nucleated RBC Nucleated RBC % (auto) Sodium Potassium Chloride Carbon Dioxide Anion Gap BUN Creatinine Estim Creat Clear Calc Estimated GFR Random Glucose Estimat Average Glucose 85 Hemoglobin A1c % 4.6 Calcium Triglycerides Cholesterol LDL Cholesterol, Calc HDL Cholesterol Vitamin B12 505 Folate 5.5 TSH Free T4 Urine Color Urine Appearance Urine pH Ur Specific [place] Urine Protein Urine Glucose (UA) Urine Ketones Urine Blood Urine Nitrite Ur Leukocyte Esterase Urine RBC Urine WBC Ur Squamous Epith Cells Urine Bacteria Hyaline Casts Urine Opiates Screen Not Detected Urine Fentanyl Screen POSITIVE H Ur Barbiturates Screen Not Detected Ur Phencyclidine Scrn Not Detected Ur Amphetamines Screen Not Detected U Benzodiazepines Scrn POSITIVE H Urine Cocaine Screen Not Detected U Marijuana (THC) Screen Not Detected Ethyl Alcohol COVID-19 ([facility]) COVID-19 Clin Com DS: Summary Hospital Course Hospital Course: Admission to adult psychiatry for exacerbation of symptoms of PTSD, bipolar II disorder, opiate use disorder with relapse and SI along with psychosocial stressors including stopping medication regime ~ one month prior to admission, loss of relationship with his girlfriend with a resulting restraining order and loss of his housing. Medications were assessed and adjusted. Pt was educated regarding options for ongoing addiction treatment via [facility] which he has applied for. Pt was referred to [facility] for out patient therapy and psychopharmacology. Pt's employer has offered him a place to live while he awaits [facility] availability which he did accept. Time spent discussing smoking cessation with patient: 3 to 10 minutes Status at Discharge Functional status at discharge: independent ambulation Overall status at discharge: patient is progressing back to baseline Time Spent with Patient Time attestation: Total time managing care of this patient today ____ minutes. Time spent: Greater than 30 minutes Discharge Plan Discharge Anticipated Discharge Date/Time: 03/04/23 12:09 Patient Disposition: Home, Self-Care Discharge Diagnosis: PTSD Bipolar Disorder, Type II History of Traumatic Brain Injury Opiate Use Disorder-currently on Methadone Polysubstance Use Disorder Referrals: MEDICATION MANAGEMENT, THERAPY [Other] - 1 Week (WALK IN CLINIC HOURS WEDNESDAY TO WEDNESDAY 8:00 AM TO 8:00 PM SAT AND SUN 9:00 AM TO 5:00 PM) [facility] [Other] (Walk in if needed) Discharge Medications: Continued nicotine 21 mg/24 hr Patch 24 Hour 21 mg transdermal DAILY PRN (Reason: smoking cessation) 28 Days Qty: 28 0RF Rx Instructions: remove at bedtime Discontinued nicotine (polacrilex) 2 mg Gum 4 mg buccal Q2H PRN (Reason: Nicotine Cravings) 30 Days Qty: 100 0RF trazodone 100 mg Tablet 100 mg PO BEDTIME PRN (Reason: Insomnia) 30 Days Qty: 30 0RF methadone [Methadose] 10 mg/mL Concentrate 80 mg PO DAILY 30 Days Qty: 240 0RF prazosin 2 mg capsule 2 mg PO BEDTIME 30 Days Qty: 30 0RF lurasidone [Latuda] 40 mg tablet 40 mg PO BEDTIME 30 Days Qty: 30 0RF Rx Instructions: take with food (at least 350 calories) clonidine HCl 0.1 mg tablet 0.1 mg PO TID PRN (Reason: anxiety) gabapentin 400 mg capsule 400 mg PO TID hydroxyzine pamoate 50 mg capsule 50 mg PO TID PRN (Reason: anxiety) No Action clonidine HCl 0.1 mg tablet 0.1 mg PO BID prazosin 1 mg capsule 3 mg PO BEDTIME trazodone 100 mg tablet 100 mg PO BEDTIME chlorpromazine 25 mg tablet 25 mg PO TID docusate sodium 100 mg capsule 100 mg PO BID hydroxyzine pamoate 50 mg capsule 50 mg PO TID PRN (Reason: anxiety) lamotrigine 100 mg tablet 100 mg PO DAILY gabapentin 600 mg tablet 600 mg PO TID nicotine (polacrilex) 4 mg gum 4 mg PO Q2H PRN (Reason: Nicotine Cravings) omeprazole 20 mg capsule,delayed release(DR/EC) 20 mg PO DAILY albuterol sulfate 90 mcg/actuation HFA aerosol inhaler 2 puff inhalation Q4H PRN (Reason: Shortness Of Breath Or Wheezing) lurasidone 40 mg tablet 40 mg PO BEDTIME methadone [Methadone Intensol] 10 mg/mL Concentrate 80 mg PO DAILY Discharge Orders: Discharge Order (Routine); Ordered 03/04/23 Ordered By: Cindy Hartman Diet: Advance to usual diet Activity on Discharge: As tolerated Stand Alone Forms: Patient Portal Discharge page, Community Support Care Plan Goals: Mood and Behavioral Stabilization Work on sobriety Health Concerns: Mood and Behavioral Stabilization Sobriety Plan of Treatment: Attend follow up appointments as scheduled Take medications as directed Assessment: Pt interviewed prior to discharge and found to be fully oriented and without SI/HI. Pt has insight and demonstrates good judgment in terms of wanting to pursue treatment. Pt is not in imminent risk of harm to self or others and has a safety plan that includes presenting to the closest ER or calling 911 if feeling unsafe. Pt has been observed closely by nursing and unit staff throughout admission. Pt has not engaged in any behaviors that suggest dangerousness to self or other and has demonstrated appropriate behaviors and impulse control. Discharge Date/Time: 03/04/23 11:31
== END 2023-03-04 11:31 | disposition home or self-care (01) | DRG 753 ==
LOC: HO.ED 19:33 → HO.PM5 02-28 14:25
PROVIDERS: Emergency Medicine; Admitting Provider Psychiatry & Neurology Psychiatry; Emergency Provider Internal Medicine; Visit Provider Clinical Nurse Specialist Psychiatric/Mental Health, Adult
DX: F31.81 Bipolar II disorder (principal); R45.851 Suicidal ideations; Z91.148 Patient's other noncompliance with medication regimen for other reason; F11.20 Opioid dependence, uncomplicated; F17.210 Nicotine dependence, cigarettes, uncomplicated; F19.10 Other psychoactive substance abuse, uncomplicated; F43.10 Post-traumatic stress disorder, unspecified; Z20.822 Contact with and (suspected) exposure to COVID-19; Z59.02 Unsheltered homelessness; Z87.820 Personal history of traumatic brain injury; Z71.6 Tobacco abuse counseling; Z79.899 Other long term (current) drug therapy
CPT/HCPCS: 36415; 80048; 80061; 80307; 81001; 82607; 82746; 83036; 84439; 84443; 85027; 87635; 93005; 99285; S9485

== ENCOUNTER → 2023-02-28 14:16 | Outpatient (BNV) | payer OTHER, SELFPAY | PROVIDERS: Admitting Provider Psychiatry & Neurology Psychiatry; Emergency Provider Internal Medicine; Visit Provider Clinical Nurse Specialist Psychiatric/Mental Health, Adult | DX: F31.81 Bipolar II disorder (principal); F43.12 Post-traumatic stress disorder, chronic; S06.9X9A Unspecified intracranial injury with loss of consciousness of unspecified duration, initial encounter; F11.90 Opioid use, unspecified, uncomplicated; F19.90 Other psychoactive substance use, unspecified, uncomplicated | CPT/HCPCS: 90792; 99231; 99232; 99239; 99499 ==

== ENCOUNTER 2023-04-02 17:46 | Emergency (ER) | payer OTHER, SELFPAY ==
--- NOTE | 2023-04-02 18:13 | ED_ITS ---
HPI - General Adult General Chief complaint: Psychiatric Symptoms Stated complaint: detox Time Seen by Provider: 04/02/23 18:32 Source: patient Mode of arrival: ambulatory Limitations: no limitations History of Present Illness HPI narrative: 38-year-old male who presents emergency department for evaluation of polys ubstance use disorder and requesting to get into detox. He also told the nurse he was not trying to kill himself but he did not care feed I would since he was feeling very depressed. The patient told me that he drinks a 5th of rum or whiskey daily with his last drink being 2 hours prior to arrival. He states that he has been using 15-20 bags of heroin per day. He states that he last injected [employer] yesterday while he was in the [facility], he passed up and believes that he may have accidentally overdosed. He states that he lashed shot up 20 dollars worth of cocaine yesterday. He states that he also snorts in uses crack cocaine when it is available. The patient denies being actively suicidal but states he does not care if he dies from an overdose. He states that he did try to kill himself by overdosing on heroin cocaine in 2010. The patient is in a methadone clinic any states that he gets 80 mg daily but missed his dose today. He also smokes 1/2 packs of cigarettes per day. His review of systems was negative for fever, chills, rhinorrhea, sore throat, cough, chest pain, shortness of breath, nausea, vomiting, diarrhea. Patient states that he split up with his fiancee and has been living on the streets for approximately 1 month. He states that his therapist is been helping him with medications but this is not helped his depression and his anxiety. Related Data Home Medications Medication Instructions Recorded Confirmed albuterol sulfate 90 mcg/actuation 2 puff inhalation Q4H PRN 04/02/23 04/02/23 aerosol inhaler Shortness Of Breath Or Wheezing chlorpromazine 25 mg tablet 25 mg PO TID 04/02/23 04/02/23 clonidine HCl 0.1 mg tablet 0.1 mg PO BID 04/02/23 04/02/23 docusate sodium 100 mg capsule 100 mg PO BID 04/02/23 04/02/23 gabapentin 600 mg tablet 600 mg PO TID 04/02/23 04/02/23 hydroxyzine pamoate 50 mg capsule 50 mg PO TID PRN anxiety 04/02/23 04/02/23 lamotrigine 100 mg tablet 100 mg PO DAILY 04/02/23 04/02/23 lurasidone 40 mg tablet 40 mg PO BEDTIME depressive 04/02/23 04/02/23 disorder nicotine (polacrilex) 4 mg gum 4 mg PO Q2H PRN Nicotine Cravings 04/02/23 04/02/23 omeprazole 20 mg capsule,delayed 20 mg PO DAILY 04/02/23 04/02/23 release prazosin 1 mg capsule 3 mg PO BEDTIME 04/02/23 04/02/23 trazodone 100 mg tablet 100 mg PO BEDTIME 04/02/23 04/02/23 methadone 10 mg/mL oral 80 mg PO DAILY 04/03/23 04/03/23 concentrate (Methadone Intensol) Previous Rx's Medication Instructions Recorded nicotine 21 mg/24 hr daily 21 mg transdermal DAILY PRN 03/04/23 transdermal patch smoking cessation 28 days #28 ea Allergies Allergy/AdvReac Type Severity Reaction Status Date / Time amoxicillin [AMOXICILLIN] Allergy Unknown HIVES Verified 04/02/23 18:20 Review of Systems Review of Systems: Yes all other systems are reviewed and are negative PMFSH Past Medical History PMFSH Narrative: Past medical history: Reviewed below, also includes chronic back pain. Surgical history: Reviewed below, L5-S1 laparoscopic disc surgery 2009. Social history: The patient states that he split up with his fiancee 1 month prior has been living on the [address] since the break-up. Patient uses injection heroin, injection cocaine and intranasal cocaine daily and drinks alcohol daily. He also smokes 1/2 pack cigarettes per day. Medical History Bipolar 2 disorder, major depressive episode Hypertension Polysubstance use disorder PTSD (post-traumatic stress disorder) TBI (traumatic brain injury) Surgical History History of mandibular surgery Family History Family History Other No pertinent family history Social History Social History Household Members: None Housing: Homeless Do you presently have visiting nurse or other home services: No Alcohol intake: current Alcohol intake frequency: 3 or more drinks per day Alcohol type: beer and hard liquor Patient Tobacco Use Status: Current everyday Tobacco user Tobacco use type: Cigarette Cigarette Packs Per Day: 2 Cigarettes Per Day: 40.0 Second Hand Smoke Exposure: No Substance Use Type: Crack/Cocaine Advance Directives: No Advance Directives Information Provided: Yes Guardian: No service: No Sexual orientation: Straight/Heterosexual Physical Exam ED Vital Signs: Vital Signs - 24 hr 04/02/23 18:14 04/03/23 06:35 04/03/23 08:21 Temperature 98.7 F 97.9 F 97.9 F Pulse Rate 96 62 68 Respiratory Rate 18 18 20 Blood Pressure 146/89 H 119/81 121/64 Pulse Oximetry 98 93 96 Oxygen Delivery Method Room Air Room Air Room Air BMI result Body Mass Index 33.2 Const General: cooperative and no acute distress Orientation/consciousness: oriented to person and oriented to place Limitations: no limitations HENMT Head: Yes normal to inspection, Yes normocephalic and Yes atraumatic Ears: external ears normal General nose exam: Normal external nose present Face and sinus: Yes normal facial exam Mouth: Normal oral and palatal mucosa present Throat: Yes posterior oropharynx normal Eyes General: appearance normal, both eyes and all related structures Pupils: Equal, round and reactive pupils present Neck Neck: Yes normal visual inspection, Yes no lymphadenopathy, Yes trachea midline and Yes supple Chest Chest palpation & inspection: normal inspection of the chest and normal palpation of entire chest wall Resp Effort & Inspection: normal respiratory effort and able to speak in complete sentences Auscultation: clear to auscultation bilaterally Cardio Rate: regular rate Rhythm: regular rhythm Heart sounds: S1 normal heart sound present, S2 normal heart sound present and no murmurs GI Inspection: Yes normal to inspection Palpation (GI): Soft to palpation, nontender and no guarding Auscultation: normal bowel sounds General: Yes no CVA tenderness Back/Spine/Pelvis Back: no CVA tenderness Skin General skin exam: no rashes or lesions noted Neuro General: oriented to person and oriented to place Cranial nerves: Yes CN's II-XII intact bilaterally and Yes Equal, round and reactive pupils present Cognition (Neuro): normal cognition Motor exam (neuro): 5/5 motor strength present throughout Extrem General: Yes normal to inspection Psych Appearance: grossly normal Speech and movement: Normal speech and movement present Affect: normal affect Attitude: cooperative Thought process: Normal thought process present Thought content: Normal thought content present Course Course Course Narrative: This is a rapid medical exam: Additional HPI, ROS, PE not included below will be deferred to primary provider. Patient is a 38-year-old male presenting to the emergency department requesting detox from everything. States he did have a period of not using. Also reports alcohol use, last drink 2 hours ago a tall can and a shot. Last night was using heroin in the [place] alone, states I'm pretty sure I almost . Denies thoughts of SI or HI but states that when he was in the [place] last night he didn't care if he or not. States his psych medications were recently increased, but has been having increased anxiety, insomnia. Denies auditory or visual hallucinations. Reports a syncopal episode while walking today due to heat/dehydration. Reports when he passed out, he landed on grass. Also reports vomiting today. Reports history of seizures related to ETOH detox. Plan: EKG, labs, UA, urine drug screen Medications Administered Generic Name Dose Route Start Last Admin Trade Name Freq PRN Reason Stop Dose Admin Chlorpromazine HCl 25 mg 04/02/23 21:00 04/03/23 08:19 Chlorpromazine Hcl 25 Mg Tablet PO 25 mg TID PEDRO Administration Clonidine HCl 0.1 mg 04/02/23 21:00 04/03/23 08:20 Clonidine Hcl 0.1 Mg Tablet PO Not Given BID PEDRO Protocol Docusate Sodium 100 mg 04/02/23 21:00 04/03/23 08:19 Docusate Sodium 100 Mg Capsule PO 100 mg BID PEDRO Administration Gabapentin 600 mg 04/02/23 21:00 04/03/23 08:19 Gabapentin 600 Mg Tablet PO 600 mg TID PEDRO Administration Lamotrigine 100 mg 04/03/23 09:00 04/03/23 08:19 Lamotrigine 100 Mg Tablet PO 100 mg DAILY PEDRO Administration Lorazepam 2 mg 04/02/23 19:15 04/03/23 08:19 Lorazepam 1 Mg Tablet PO 2 mg Q4H PRN Administration Alcohol Withdrawal Lurasidone HCl 40 mg 04/02/23 21:00 04/02/23 20:58 Lurasidone Hcl 40 Mg Tablet PO 40 mg BEDTIME PEDRO Administration Methadone HCl 80 mg 04/03/23 09:00 04/03/23 11:02 Methadone Hcl 20 Mg/2 Ml Oral.Conc PO 80 mg DAILY PEDRO Administration Omeprazole 20 mg 04/03/23 06:30 04/03/23 06:03 Omeprazole 20 Mg Capsule. PO 20 mg DAILY@0630 PEDRO Administration Prazosin HCl 3 mg 04/02/23 21:00 04/02/23 20:47 Prazosin Hcl 1 Mg Capsule PO 3 mg BEDTIME PEDRO Administration Protocol Trazodone HCl 100 mg 04/02/23 21:00 04/02/23 20:47 Trazodone Hcl 100 Mg Tablet PO 100 mg BEDTIME PEDRO Administration Discontinued Medications Generic Name Dose Route Start Last Admin Trade Name Samra PRN Reason Stop Dose Admin Methadone HCl 40 mg 04/02/23 19:15 04/02/23 19:27 Methadone Hcl 20 Mg/2 Ml Oral.Conc PO 04/02/23 19:16 40 mg ONCE STA Administration Medical Decision Making Medical Decision Making MDM Narrative: 38-year-old male who presents emergency department seeking detox from heroin, cocaine, and alcohol. Patient has also had increased depression and states that he does not care if he dies from an overdose. He is in a methadone program and missed his methadone yesterday. He states that he recently broke up with his fiancee 1 month prior and has been living on the street since that time. Vital signs did reveal an elevated blood pressure of 146/89. Patient's physical examination was otherwise unremarkable. I did order laboratory evaluation to include CBC, CMP, troponin, ethanol level, Tylenol, salicylate, urine drug screen, urinalysis, COVID-19, EKG. 1913: Start physician observation Patient's medications were reconciled in ordered by me. Given the patient's significant heroin use disorder and the fact that he missed his methadone 80 mg dose today, I ordered methadone 40 mg orally now Given his significant alcohol use disorder, drinking a 5th of rum/whiskey per day, I did order Ativan 2 mg every 4 hours as needed for withdrawal. Patient will also be ordered to get Nicorette gum p.r.n. for nicotine withdrawal. At the end of my shift, the patient's laboratory evaluation is pending, jeremy fernandes's care was turned over to my colleague, Dr. Kanwal Tamayo Differential Diagnosis Differential Diagnoses: The differential diagnosis associated with the presentation includes Depression, anxiety, suicidal ideation, alcohol withdrawal, opiate withdrawal, electrolyte abnormalities, anemia Admission/Observation Consideration of admission/observation: Escalation of care including admission/observation considered Lab Data 04/02/23 19:51 04/02/23 19:51 Labs: Lab Results 04/02/23 04/02/23 04/02/23 Range/Units 18:47 18:47 19:51 WBC 8.7 (4.8-10.8) X10*3/uL RBC 3.85 L (4.60-5.80) X10*6/uL Hgb 11.9 L (14.0-18.0) g/dl Hct 33.9 L (42.0-52.0) % MCV 88.1 (80.0-98.0) fL MCH 30.9 (27.0-33.0) pg MCHC 35.1 (31.0-36.0) g/dl RDW 11.9 (11.0-16.0) % Plt Count 267 (160-400) X10*3/uL MPV 9.4 (9.4-12.4) fL Immature Gran % (Auto) 0.3 (0.0-0.4) % Neut % (Auto) 63.9 (45-73) % Lymph % (Auto) 24.9 (20-40) % [place] % (Auto) 10.1 (2-11) % Eos % (Auto) 0.7 (0-4) % Baso % (Auto) 0.1 (0-2) % Lymph # (Auto) 2.2 (1.2-4.9) X10*3/uL [place] # (Auto) 0.9 (0.1-1.2) X10*3/uL Eos # (Auto) 0.1 (0.0-0.4) X10*3/uL Baso # (Auto) 0.0 (0.0-0.2) X10*3/uL Abs Immat Gran (auto) 0.03 (0.00-0.03) X10*3/uL Absolute Neuts (auto) 5.6 (2.0-8.3) x10*3/uL Absolute Nucleated RBC 0.000 (0.0-0.012) X10*3/uL Nucleated RBC % (auto) 0.0 (0.0-0.2) /100WBC Sodium (135-145) mmol/L Potassium (3.3-5.1) mmol/L Chloride (96-108) mmol/L Carbon Dioxide (22-29) mmol/L Anion Gap (12-20) BUN (9-16) mg/dL Creatinine (0.5-1.4) mg/dL Estim Creat Clear Calc Estimated GFR Random Glucose (60-115) mg/dL Calcium (8.4-10.2) mg/dL Total Bilirubin (0.0-1.0) mg/dL AST (5-37) U/L ALT (0-40) U/L Alkaline Phosphatase (39-117) U/L Troponin I High Sens (<3.5-35.0) ng/L Total Protein (6.5-8.0) g/dL Albumin (3.5-5.0) g/dL Urine Color Dark Yellow Urine Appearance Clear Urine pH 5.5 (5.0-9.0) Ur Specific Jessie >= 1.030 H (1.005-1.025) Urine Protein 30 (1+) H (Neg-Trace) mg/dL Urine Glucose (UA) Negative (Negative) mg/dL Urine Ketones Trace (Negative) mg/dL Urine Blood Negative (Negative) Urine Nitrite Negative (Negative) Ur Leukocyte Esterase Negative (Negative) Urine RBC 0-2 (0-2) /HPF Urine WBC 0-5 (0-5) /HPF Ur Squamous Epith Cells 0-2 (0-2) /HPF Urine Bacteria None Seen (None Seen) Hyaline Casts >20 (0-2) /LPF Salicylates (15-30) mg/dL Urine Opiates Screen POSITIVE H (Not Detect) Urine Fentanyl Screen POSITIVE H (Not Detect) Acetaminophen (<30) mcg/mL Ur Barbiturates Screen Not Detected (Not Detect) Ur Phencyclidine Scrn Not Detected (Not Detect) Ur Amphetamines Screen Not Detected (Not Detect) U Benzodiazepines Scrn POSITIVE H (Not Detect) Urine Cocaine Screen POSITIVE H (Not Detect) U Marijuana (THC) Screen Not Detected (Not Detect) Ethyl Alcohol mg/dL COVID-19 (JC) (Negative) COVID-19 Clin Com 04/02/23 04/02/23 04/02/23 Range/Units 19:51 19:52 19:52 WBC (4.8-10.8) X10*3/uL RBC (4.60-5.80) X10*6/uL Hgb (14.0-18.0) g/dl Hct (42.0-52.0) % MCV (80.0-98.0) fL MCH (27.0-33.0) pg MCHC (31.0-36.0) g/dl RDW (11.0-16.0) % Plt Count (160-400) X10*3/uL MPV (9.4-12.4) fL Immature Gran % (Auto) (0.0-0.4) % Neut % (Auto) (45-73) % Lymph % (Auto) (20-40) % [place] % (Auto) (2-11) % Eos % (Auto) (0-4) % Baso % (Auto) (0-2) % Lymph # (Auto) (1.2-4.9) X10*3/uL [place] # (Auto) (0.1-1.2) X10*3/uL Eos # (Auto) (0.0-0.4) X10*3/uL Baso # (Auto) (0.0-0.2) X10*3/uL Abs Immat Gran (auto) (0.00-0.03) X10*3/uL Absolute Neuts (auto) (2.0-8.3) x10*3/uL Absolute Nucleated RBC (0.0-0.012) X10*3/uL Nucleated RBC % (auto) (0.0-0.2) /100WBC Sodium 139 (135-145) mmol/L Potassium 4.1 (3.3-5.1) mmol/L Chloride 104 (96-108) mmol/L Carbon Dioxide 22 (22-29) mmol/L Anion Gap 17 (12-20) BUN 16 (9-16) mg/dL Creatinine 0.89 (0.5-1.4) mg/dL Estim Creat Clear Calc 143.4 Estimated GFR > 60 Random Glucose 123 H (60-115) mg/dL Calcium 9.1 (8.4-10.2) mg/dL Total Bilirubin 0.7 (0.0-1.0) mg/dL AST 31 (5-37) U/L ALT 22 (0-40) U/L Alkaline Phosphatase 91 (39-117) U/L Troponin I High Sens < 2.7 (<3.5-35.0) ng/L Total Protein 7.9 (6.5-8.0) g/dL Albumin 4.0 (3.5-5.0) g/dL Urine Color Urine Appearance Urine pH (5.0-9.0) Ur Specific Jessie (1.005-1.025) Urine Protein (Neg-Trace) mg/dL Urine Glucose (UA) (Negative) mg/dL Urine Ketones (Negative) mg/dL Urine Blood (Negative) Urine Nitrite (Negative) Ur Leukocyte Esterase (Negative) Urine RBC (0-2) /HPF Urine WBC (0-5) /HPF Ur Squamous Epith Cells (0-2) /HPF Urine Bacteria (None Seen) Hyaline Casts (0-2) /LPF Salicylates (15-30) mg/dL Urine Opiates Screen (Not Detect) Urine Fentanyl Screen (Not Detect) Acetaminophen (<30) mcg/mL Ur Barbiturates Screen (Not Detect) Ur Phencyclidine Scrn (Not Detect) Ur Amphetamines Screen (Not Detect) U Benzodiazepines Scrn (Not Detect) Urine Cocaine Screen (Not Detect) U Marijuana (THC) Screen (Not Detect) Ethyl Alcohol mg/dL COVID-19 (JC) Negative (Negative) COVID-19 Clin Com See Note 04/02/23 04/02/23 Range/Units 19:52 19:52 WBC (4.8-10.8) X10*3/uL RBC (4.60-5.80) X10*6/uL Hgb (14.0-18.0) g/dl Hct (42.0-52.0) % MCV (80.0-98.0) fL MCH (27.0-33.0) pg MCHC (31.0-36.0) g/dl RDW (11.0-16.0) % Plt Count (160-400) X10*3/uL MPV (9.4-12.4) fL Immature Gran % (Auto) (0.0-0.4) % Neut % (Auto) (45-73) % Lymph % (Auto) (20-40) % [place] % (Auto) (2-11) % Eos % (Auto) (0-4) % Baso % (Auto) (0-2) % Lymph # (Auto) (1.2-4.9) X10*3/uL [place] # (Auto) (0.1-1.2) X10*3/uL Eos # (Auto) (0.0-0.4) X10*3/uL Baso # (Auto) (0.0-0.2) X10*3/uL Abs Immat Gran (auto) (0.00-0.03) X10*3/uL Absolute Neuts (auto) (2.0-8.3) x10*3/uL Absolute Nucleated RBC (0.0-0.012) X10*3/uL Nucleated RBC % (auto) (0.0-0.2) /100WBC Sodium (135-145) mmol/L Potassium (3.3-5.1) mmol/L Chloride (96-108) mmol/L Carbon Dioxide (22-29) mmol/L Anion Gap (12-20) BUN (9-16) mg/dL Creatinine (0.5-1.4) mg/dL Estim Creat Clear Calc Estimated GFR Random Glucose (60-115) mg/dL Calcium (8.4-10.2) mg/dL Total Bilirubin (0.0-1.0) mg/dL AST (5-37) U/L ALT (0-40) U/L Alkaline Phosphatase (39-117) U/L Troponin I High Sens (<3.5-35.0) ng/L Total Protein (6.5-8.0) g/dL Albumin (3.5-5.0) g/dL Urine Color Urine Appearance Urine pH (5.0-9.0) Ur Specific Jessie (1.005-1.025) Urine Protein (Neg-Trace) mg/dL Urine Glucose (UA) (Negative) mg/dL Urine Ketones (Negative) mg/dL Urine Blood (Negative) Urine Nitrite (Negative) Ur Leukocyte Esterase (Negative) Urine RBC (0-2) /HPF Urine WBC (0-5) /HPF Ur Squamous Epith Cells (0-2) /HPF Urine Bacteria (None Seen) Hyaline Casts (0-2) /LPF Salicylates < 5.0 L (15-30) mg/dL Urine Opiates Screen (Not Detect) Urine Fentanyl Screen (Not Detect) Acetaminophen < 17 (<30) mcg/mL Ur Barbiturates Screen (Not Detect) Ur Phencyclidine Scrn (Not Detect) Ur Amphetamines Screen (Not Detect) U Benzodiazepines Scrn (Not Detect) Urine Cocaine Screen (Not Detect) U Marijuana (THC) Screen (Not Detect) Ethyl Alcohol < 10 mg/dL COVID-19 (JC) (Negative) COVID-19 Clin Com Chronic Conditions Patient?s care impacted by: Other (Polysubstance use disorder (cocaine, heroin, alcohol)) Social Determinants Patient?s care significantly limited by Social Determinants of Health including: Inadequate housing Discharge Plan Discharge Clinical Impression: Heroin use, Depression, Alcohol use disorder, Cocaine use Patient Disposition: Still a Patient Prescriptions: No Action nicotine 21 mg/24 hr Patch 24 Hour 21 mg transdermal DAILY PRN (Reason: smoking cessation) 28 Days Qty: 28 0RF Rx Instructions: remove at bedtime clonidine HCl 0.1 mg tablet 0.1 mg PO BID prazosin 1 mg capsule 3 mg PO BEDTIME trazodone 100 mg tablet 100 mg PO BEDTIME chlorpromazine 25 mg tablet 25 mg PO TID docusate sodium 100 mg capsule 100 mg PO BID hydroxyzine pamoate 50 mg capsule 50 mg PO TID PRN (Reason: anxiety) lamotrigine 100 mg tablet 100 mg PO DAILY gabapentin 600 mg tablet 600 mg PO TID nicotine (polacrilex) 4 mg gum 4 mg PO Q2H PRN (Reason: Nicotine Cravings) omeprazole 20 mg capsule,delayed release(DR/EC) 20 mg PO DAILY albuterol sulfate 90 mcg/actuation HFA aerosol inhaler 2 puff inhalation Q4H PRN (Reason: Shortness Of Breath Or Wheezing) lurasidone 40 mg tablet 40 mg PO BEDTIME methadone [Methadone Intensol] 10 mg/mL Concentrate 80 mg PO DAILY Interventions: Ramsey-Suicide Risk Severity Scale Last Done: 04/03/23 06:05
[2023-04-02 18:14] VITALS: BP 146/89; PULSE 96; RESP 18; TEMP 37.1; O2SAT 98; BMI 33.2
--- NOTE | 2023-04-02 18:17 | ECG_ITS ---
Test Reason : MEDICAL CLEARENCE Blood Pressure : / mmHG Vent. Rate : 075 BPM Atrial Rate : 075 BPM P-R Int : 140 ms QRS Dur : 094 ms QT Int : 412 ms P-R-T Axes : 061 037 046 degrees QTc Int : 460 ms Normal sinus rhythm Normal ECG When compared with ECG of 28-FEB-2023 10:12, QT has lengthened Referred By: Janette Monroe Electronically Signed By:KATIE ULLOA MD
--- NOTE | 2023-04-02 18:30 | PC.NURSE ---
PT ARRIVED ON UNIT, CHANGING IN HOSP GARMENT WITH SECURITY/[facility] OUTSIDE OF THE DOOR. BELONGING LIST IS BEING DONE.
--- NOTE | 2023-04-02 18:36 | PC.NURSE ---
AT BEDSIDE WITH PT.
[2023-04-02 18:53] LABS: Appearance Urine Clear; Color Urine Dark Yellow; Glucose Urine UA Negative (Negative); Leukocyte Esterase Urine Negative (Negative); Nitrite Urine Negative (Negative); PH 5.5 (5.0-9.0); Specific Gravity - Urine >= 1.030 (1.005-1.025); UMIC TRIGGER UACC YES; Urine Blood Negative (Negative); Urine Ketones Trace mg/dL (Negative); Urine Protein 30 (1+) mg/dL (Neg-Trace)
[2023-04-02 19:04] LABS: Bacteria Urine None Seen (None Seen); Hyaline Casts Urine >20 /LPF (0-2); RBC Urine 0-2 /HPF (0-2); Squamous Epithelial Cell Urine 0-2 /HPF (0-2); WBC Urine 0-5 /HPF (0-5)
[2023-04-02 19:06] LABS: Amphetamine Screen Urine Not Detected (Not Detect); Barbiturates, Urine Not Detected (Not Detect); Benzodiazepines Screen Urine POSITIVE (Not Detect); Cannabinoid Screen Urine Not Detected (Not Detect); Cocaine Screen Urine POSITIVE (Not Detect); Fentanyl, urine POSITIVE (Not Detect); Opiate Screen Urine POSITIVE (Not Detect); Phencyclidine Screen Urine Not Detected (Not Detect)
--- NOTE | 2023-04-02 19:22 | PHA.MEDREC ---
Pharmacy Consult ? Medication Reconciliation Pharmacy has reviewed the medication reconciliation completed by Roddy. Jemima Marcum, KeanuD
[2023-04-02] MEDS: methADONE HCl 20 MG/2 ML ORAL.CONC 40 MG PO (19:27)
[2023-04-02 19:59] LABS: MANUAL DIFF FLAG NO
[2023-04-02 20:00] LABS: Basophils Percent Auto 0.1 % (0-2); Eosinophils Absolute Auto 0.1 X10*3/uL (0.0-0.4); Eosinophils Percent Auto 0.7 % (0-4); Hematocrit 33.9 % (42.0-52.0); Hemoglobin 11.9 g/dl (14.0-18.0); Imm Gran Abs Auto 0.03 X10*3/uL (0.00-0.03); Imm Gran Pct Auto 0.3 % (0.0-0.4); Lymphocytes Absolute Auto 2.2 X10*3/uL (1.2-4.9); Lymphocytes Percent Auto 24.9 % (20-40); Mean Corpuscular HGB Conc 35.1 g/dl (31.0-36.0); Mean Corpuscular Hemoglobin 30.9 pg (27.0-33.0); Mean Corpuscular Volume 88.1 fL (80.0-98.0); Mean Platelet Volume 9.4 fL (9.4-12.4); Monocytes Absolute Auto 0.9 X10*3/uL (0.1-1.2); Monocytes Percent Auto 10.1 % (2-11); Neutrophils Absolute Auto 5.6 x10*3/uL (2.0-8.3); Neutrophils Percent Auto 63.9 % (45-73); Platelet Count 267 X10*3/uL (160-400); Red Blood Count 3.85 X10*6/uL (4.60-5.80); Red Cell Distribution Width 11.9 % (11.0-16.0); White Blood Count 8.7 X10*3/uL (4.8-10.8)
[2023-04-02 20:23] LABS: COVID-19 Test Negative (Negative); IDNOW Serial# 9DB6401D
[2023-04-02 20:30] LABS: Ethanol < 10 mg/dL
[2023-04-02 20:31] LABS: Alanine Aminotransferase 22 U/L (0-40); Alkaline Phosphatase 91 U/L (39-117); Anion Gap 17 (12-20); Aspartate Amino Transferase 31 U/L (5-37); Bilirubin Total 0.7 mg/dL (0.0-1.0); Blood Urea Nitrogen 16 mg/dL (9-16); Calcium 9.1 mg/dL (8.4-10.2); Carbon Dioxide 22 mmol/L (22-29); Chloride 104 mmol/L (96-108); Creatinine Clr Calc Pharmacy 143.4; Estimated Glomerular Filt Rate > 60; Glucose Random 123 mg/dL (60-115); Potassium 4.1 mmol/L (3.3-5.1); Sodium 139 mmol/L (135-145); Total Protein 7.9 g/dL (6.5-8.0)
[2023-04-02 20:39] LABS: Acetaminophen LAB < 17 mcg/mL (<30); Salicylate < 5.0 mg/dL (15-30); Troponin-I High Sensitivity < 2.7 ng/L (<3.5-35.0)
[2023-04-02] MEDS: Gabapentin 600 MG TABLET PO (20:47)
[2023-04-02] MEDS: Docusate Sodium 100 MG CAPSULE PO (20:47)
[2023-04-02] MEDS: Prazosin HCL 1 MG CAPSULE 3 MG PO (20:47)
[2023-04-02] MEDS: cloNIDine HCL 0.1 MG TABLET PO (20:47)
[2023-04-02] MEDS: traZODone HCL 100 MG TABLET PO (20:47)
[2023-04-02] MEDS: chlorproMAZINE HCl 25 MG TABLET PO (20:47)
[2023-04-02] MEDS: Lurasidone HCl 40 MG TABLET PO (20:58)
[2023-04-03] MEDS: Omeprazole 20 MG CAPSULE.DR PO (06:03)
--- NOTE | 2023-04-03 06:07 | PC.NURSE ---
Patient slept through the night, no distress observed/reported, medication compliant, asymptomatic of withdrawal at this time, 40 mg of Methadone administered as ordered at 1927, assessed by care team disposition pending patient will be reassessed in the morning, pending methadone verification, behavior non concerning, VSS, will continue to monitor.
[2023-04-03 06:35] VITALS: BP 119/81; PULSE 62; RESP 18; TEMP 36.6; O2SAT 93
[2023-04-03] MEDS: lamoTRIgine 100 MG TABLET PO (08:19)
[2023-04-03] MEDS: LORazepam 1 MG TABLET 2 MG PO ×2 (08:19→16:57)
[2023-04-03] MEDS: Gabapentin 600 MG TABLET PO ×2 (08:19→20:14)
[2023-04-03] MEDS: Docusate Sodium 100 MG CAPSULE PO ×2 (08:19→20:15)
[2023-04-03] MEDS: chlorproMAZINE HCl 25 MG TABLET PO ×2 (08:19→20:14)
[2023-04-03 08:21] VITALS: BP 121/64; PULSE 68; RESP 20; TEMP 36.6; O2SAT 96
--- NOTE | 2023-04-03 08:26 | PC.NURSE ---
Methadone verified last dose 80mg at 04/03/23, pt having tremors in the hands r/t ETOH withdrawal. Medicated as ordered. refused clonidine. Ate breakfast, back to bed.
--- NOTE | 2023-04-03 08:34 | HE.PHANOTE ---
RE: METHADONE Pharmacy received patients methadone verification form. Last doses 04/01/23 with 80 mg per [facility] for wellbeing
[2023-04-03] MEDS: methADONE HCl 20 MG/2 ML ORAL.CONC 80 MG PO (11:02)
[2023-04-03 20:03] VITALS: BP 125/80; PULSE 67; RESP 17; TEMP 36.7; O2SAT 95
[2023-04-03] MEDS: Lurasidone HCl 40 MG TABLET PO (20:13)
[2023-04-03] MEDS: traZODone HCL 100 MG TABLET PO (20:14)
[2023-04-03] MEDS: Prazosin HCL 1 MG CAPSULE 3 MG PO (20:14)
[2023-04-03] MEDS: cloNIDine HCL 0.1 MG TABLET PO (20:16)
--- NOTE | 2023-04-04 05:32 | PC.NURSE ---
Patient slept through the night, no distress observed/reported, asymptomatic of ETOH withdrawal CIWA score 0, compliant with HS medication, behavior non concerning, disposition per care team is EATS bed search, VSS, will continue to monitor.
[2023-04-04] MEDS: methADONE HCl 20 MG/2 ML ORAL.CONC 80 MG PO (08:55)
[2023-04-04] MEDS: LORazepam 1 MG TABLET 2 MG PO ×3 (08:55→18:49)
--- NOTE | 2023-04-04 12:15 | PC.NURSE ---
pt requesting clean clothes, pt given clean clothing and supplies for a shower and to brush his teeth.
--- NOTE | 2023-04-04 13:17 | MHC.CARE ---
Tw conducted a Dual Dx bed search for this patient. No beds available, assessment was faxed to Abel/Z[facility]ADIAGA and Yasmin
[2023-04-04] MEDS: chlorproMAZINE HCl 25 MG TABLET PO ×2 (13:21→21:28)
[2023-04-04] MEDS: Gabapentin 600 MG TABLET PO ×2 (13:21→21:29)
[2023-04-04 17:50] VITALS: BP 141/78; PULSE 72; RESP 16; TEMP 36.6; O2SAT 95
[2023-04-04] MEDS: cloNIDine HCL 0.1 MG TABLET PO (21:28)
[2023-04-04] MEDS: Docusate Sodium 100 MG CAPSULE PO (21:29)
[2023-04-04] MEDS: Lurasidone HCl 40 MG TABLET PO (21:29)
[2023-04-04] MEDS: traZODone HCL 100 MG TABLET PO (21:29)
[2023-04-04] MEDS: Prazosin HCL 1 MG CAPSULE 3 MG PO (21:32)
[2023-04-04] MEDS: Nicotine Polacrilex 2 MG GUM 4 MG BUCCAL (21:43)
--- NOTE | 2023-04-04 21:44 | PC.NURSE ---
Pt awake, out of bed, A&Ox4, GCS 15. Pt requesting nicotine gum. PRN order administered. Pt is resting in bed at this time.
--- NOTE | 2023-04-04 23:00 | MHC.CARE ---
Pt was accepted to [facility] and is expected to be there at NOON on 04/05/23. The accepting doc is Dr. Orona. There is no nurse to nurse necessary. The address is [address] [place] [address].
[2023-04-05 02:54] VITALS: BP 140/69; PULSE 70; RESP 16; TEMP 36.8; O2SAT 95
[2023-04-05] MEDS: LORazepam 1 MG TABLET 2 MG PO ×2 (04:45→09:57)
[2023-04-05] MEDS: hydrOXYzine HCL 50 MG TABLET PO (04:45)
--- NOTE | 2023-04-05 04:51 | PC.NURSE ---
Addendum entered by Brenna Jameson RN 04/05/23 05:35: Pt is comfortable in bed at this time, asleep. RR adequate, chest rise and fall equal bilaterally. Original Note: Pt reporting nausea and shakiness, scored 14 on CIWA. Pt was given ativan and atarax per NOV. Dr Montalvo is aware, will reassess the pt in 20-30 minutes to evaluate effectiveness.
[2023-04-05] MEDS: Omeprazole 20 MG CAPSULE.DR PO (06:13)
[2023-04-05 09:49] VITALS: BP 140/86; PULSE 86; RESP 18; TEMP 36.6; O2SAT 98
[2023-04-05] MEDS: Nicotine Polacrilex 2 MG GUM BUCCAL (09:57)
[2023-04-05] MEDS: Docusate Sodium 100 MG CAPSULE PO (09:57)
[2023-04-05] MEDS: chlorproMAZINE HCl 25 MG TABLET PO (09:57)
[2023-04-05] MEDS: lamoTRIgine 100 MG TABLET PO (09:57)
[2023-04-05] MEDS: methADONE HCl 20 MG/2 ML ORAL.CONC 80 MG PO (09:57)
[2023-04-05] MEDS: cloNIDine HCL 0.1 MG TABLET PO (09:57)
[2023-04-05] MEDS: Gabapentin 600 MG TABLET PO (09:57)
== END 2023-04-05 10:11 ==
PROVIDERS: Registered Nurse Emergency; Emergency Provider Emergency Medicine Emergency Medical Services
DX: F33.1 Major depressive disorder, recurrent, moderate (principal); F11.10 Opioid abuse, uncomplicated; F10.10 Alcohol abuse, uncomplicated; Y90.0 Blood alcohol level of less than 20 mg/100 ml; F14.10 Cocaine abuse, uncomplicated; Z20.822 Contact with and (suspected) exposure to COVID-19; Z20.828 Contact with and (suspected) exposure to other viral communicable diseases; Z79.899 Other long term (current) drug therapy; Z71.51 Drug abuse counseling and surveillance of drug abuser
CPT/HCPCS: 36415; 80053; 80143; 80179; 80307; 81001; 84484; 85025; 87635; 93005; 99285; S9485

== ENCOUNTER → 2023-04-02 18:17 | Outpatient (BNV) | payer OTHER, SELFPAY | PROVIDERS: Emergency Provider Emergency Medicine Emergency Medical Services; Visit Provider Internal Medicine Cardiovascular Disease | DX: R55 Syncope and collapse (principal) | CPT/HCPCS: 93010 ==

== ENCOUNTER 2023-08-18 01:03 | Emergency (ER) | payer MEDICAID, SELFPAY ==
--- NOTE | 2023-08-18 | ECG_ITS ---
Test Reason : CHEST PAIN Blood Pressure : / mmHG Vent. Rate : 083 BPM Atrial Rate : 083 BPM P-R Int : 142 ms QRS Dur : 090 ms QT Int : 358 ms P-R-T Axes : 070 029 043 degrees QTc Int : 420 ms Normal sinus rhythm Normal ECG When compared with ECG of 02-APR-2023 22:13, No significant change was found Referred By: Generic ED Physician Electronically Signed By:Akin Venegas
--- NOTE | ~2023-08-18 | XR_ITS ---
EXAMINATION: XR CHEST CLINICAL INFORMATION: Chest pain COMPARISON: None available. TECHNIQUE: 2 views of the chest were obtained. FINDINGS: Normal symmetric lung volumes. No parenchymal consolidation. Trace right pleural effusion versus pleuroparenchymal scarring. No pneumothorax. Cardiomediastinal silhouette and pulmonary vascularity are within normal limits. No acute osseous abnormalities. XR/XR chest 2V IMPRESSION: * Trace right pleural effusion versus pleuroparenchymal scarring. * No focal consolidation.
[2023-08-18 01:22] LABS: MANUAL DIFF FLAG NO
[2023-08-18 01:25] VITALS: BP 141/79; PULSE 87; RESP 18; TEMP 36; O2SAT 98; BMI 35.3
[2023-08-18 01:37] LABS: Basophils Percent Auto 0.2 % (0-2); Eosinophils Percent Auto 0.5 % (0-4); Hematocrit 38.5 % (42.0-52.0); Hemoglobin 13.2 g/dl (14.0-18.0); Imm Gran Abs Auto 0.03 X10*3/uL (0.00-0.03); Imm Gran Pct Auto 0.3 % (0.0-0.4); Lymphocytes Percent Auto 23.1 % (20-40); Mean Corpuscular HGB Conc 34.3 g/dl (31.0-36.0); Mean Corpuscular Hemoglobin 30.9 pg (27.0-33.0); Mean Corpuscular Volume 90.2 fL (80.0-98.0); Mean Platelet Volume 9.3 fL (9.4-12.4); Monocytes Absolute Auto 0.7 X10*3/uL (0.1-1.2); Monocytes Percent Auto 8.2 % (2-11); Neutrophils Absolute Auto 5.8 x10*3/uL (2.0-8.3); Neutrophils Percent Auto 67.7 % (45-73); Platelet Count 299 X10*3/uL (160-400); Red Blood Count 4.27 X10*6/uL (4.60-5.80); Red Cell Distribution Width 12.7 % (11.0-16.0); White Blood Count 8.6 X10*3/uL (4.8-10.8)
[2023-08-18 01:44] LABS: Alanine Aminotransferase 35 U/L (0-40); Albumin Level 4.3 g/dL (3.5-5.0); Alkaline Phosphatase 108 U/L (39-117); Anion Gap 13 (12-20); Aspartate Amino Transferase 41 U/L (5-37); Bilirubin Total 0.7 mg/dL (0.0-1.0); Blood Urea Nitrogen 21 mg/dL (9-16); Calcium 9.4 mg/dL (8.4-10.2); Carbon Dioxide 26 mmol/L (22-29); Chloride 103 mmol/L (96-108); Creatinine Clr Calc Pharmacy 126.4; Estimated Glomerular Filt Rate > 60; Glucose Random 82 mg/dL (60-115); Potassium 4.9 mmol/L (3.3-5.1); Sodium 137 mmol/L (135-145); Total Protein 8.2 g/dL (6.5-8.0)
[2023-08-18 02:52] LABS: Troponin-I High Sensitivity 3.1 ng/L (<3.5-35.0)
[2023-08-18 03:25] VITALS: BP 110/69; PULSE 60; RESP 20; O2SAT 98
[2023-08-18 04:05] VITALS: PULSE 80
[2023-08-18 05:57] VITALS: BP 107/64; PULSE 60; RESP 12; O2SAT 96
[2023-08-18 06:06] LABS: Troponin-I High Sensitivity 2.8 ng/L (<3.5-35.0)
[2023-08-18 07:21] VITALS: BP 104/68; PULSE 53; RESP 15; TEMP 36.6; O2SAT 98
--- NOTE | 2023-08-18 07:55 | ED.CHESTPAIN ---
HPI - Chest Pain General Chief Complaint: Chest Pain Stated Complaint: Chest Pain Time Seen by Provider: 08/18/23 07:05 Source: patient Mode of arrival: ambulatory History of Present Illness HPI narrative: 38-year-old male with history of hypertension, states he is been sober for number of weeks, states he is experiencing sharp pain on the right side of the chest is radiated into his back but this is been ongoing for months, he has been evaluated emergency hospital who placed him on a Holter monitor. Patient denies any corresponding dizziness/shortness of breath associated with these symptoms. He is currently asymptomatic. Related Data Home Medications Medication Instructions Recorded Confirmed albuterol sulfate 90 mcg/actuation 2 puff inhalation Q4H PRN 04/02/23 04/02/23 aerosol inhaler Shortness Of Breath Or Wheezing chlorpromazine 25 mg tablet 25 mg PO TID 04/02/23 04/02/23 clonidine HCl 0.1 mg tablet 0.1 mg PO BID 04/02/23 04/02/23 docusate sodium 100 mg capsule 100 mg PO BID 04/02/23 04/02/23 gabapentin 600 mg tablet 600 mg PO TID 04/02/23 04/02/23 hydroxyzine pamoate 50 mg capsule 50 mg PO TID PRN anxiety 04/02/23 04/02/23 lamotrigine 100 mg tablet 100 mg PO DAILY 04/02/23 04/02/23 lurasidone 40 mg tablet 40 mg PO BEDTIME depressive 04/02/23 04/02/23 disorder nicotine (polacrilex) 4 mg gum 4 mg PO Q2H PRN Nicotine Cravings 04/02/23 04/02/23 omeprazole 20 mg capsule,delayed 20 mg PO DAILY 04/02/23 04/02/23 release prazosin 1 mg capsule 3 mg PO BEDTIME 04/02/23 04/02/23 trazodone 100 mg tablet 100 mg PO BEDTIME 04/02/23 04/02/23 methadone 10 mg/mL oral 80 mg PO DAILY 04/03/23 04/03/23 concentrate (Methadone Intensol) Previous Rx's Medication Instructions Recorded nicotine 21 mg/24 hr daily 21 mg transdermal DAILY PRN 03/04/23 transdermal patch smoking cessation 28 days #28 ea Allergies Allergy/AdvReac Type Severity Reaction Status Date / Time amoxicillin [AMOXICILLIN] Allergy Unknown HIVES Verified 08/18/23 01:25 Review of Systems Review of Systems: Pertinent positives and negatives as stated in [facility] Past Medical History Source: nursing notes reviewed Medical History Polysubstance use disorder Hypertension Bipolar 2 disorder, major depressive episode TBI (traumatic brain injury) PTSD (post-traumatic stress disorder) Surgical History History of mandibular surgery Family History Family History Other No pertinent family history Social History Social History Household Members: None Housing: Homeless Do you presently have visiting nurse or other home services: No Alcohol intake: current Alcohol intake frequency: holidays/special occasions only Alcohol type: beer and hard liquor Patient Tobacco Use Status: Current everyday Tobacco user Tobacco use type: Cigarette Cigarette Packs Per Day: 2 Cigarettes Per Day: 40.0 Smoked in Last 30 Days: Yes Second Hand Smoke Exposure: No Use of substances other than those prescribed or required for medical reasons: No Substance Use Type: Crack/Cocaine Advance Directives: No Advance Directives Information Provided: No service: No Sexual orientation: Straight/Heterosexual Physical Exam Vital Signs: Vital Signs: Last Vital Signs Temp 97.8 F 08/18/23 07:21 Pulse 53 08/18/23 07:21 Resp 15 08/18/23 07:21 BP 104/68 08/18/23 07:21 Pulse Ox 98 08/18/23 07:21 O2 Del Method Room Air 08/18/23 07:21 BMI result Body Mass Index 35.3 VITAL SIGNS: Reviewed. GENERAL: Well developed, well nourished, in no acute distress. HEAD: Normocephalic/atraumatic EYES: PERRLA, EOMI EARS: Ext canals without abnormality, TMs non-bulging and non-erythematous NOSE: Nares patent bilateral OROPHARYNX: no oral lesions noted, posterior pharynx clear and non-erythematous without noted tonsillar enlargement/erythema/exudates NECK: Supple, no adenopathy LUNGS: Normal breath sounds. No adventitious sounds or accessory muscle use. SpO2<98> CARDIOVASCULAR: Regular rate and rhythm without noted murmurs ABDOMEN: Soft, non-tender, non-distended with bowel sounds. MUSCULOSKELETAL: No tenderness, deformities, or effusions noted on gross inspection. EXTREMITIES: No cyanosis, clubbing or edema. SKIN: Inspection of the skin reveals no rashes NEUROLOGIC: Alert and oriented x 4. Strength and sensation to light touch were grossly intact x 4. Medical Decision Making Medical Decision Making [facility] Narrative: 0745: 38-year-old male with history and clinical presentation, DDX: Musculoskeletal pain, Pneumonia, viral illness: COVID/influenza, doubt ACS. Patient otherwise appears well, eating calmly in bed. I reviewed all investigations and hematologic indices are negative for leukocytosis or left shift, there is a chronic normocytic anemia no thrombocytopenia. Chemistry indices do not demonstrate an CARLOS and there is no electrolyte or liver enzyme derangement, serial troponins although detectable are not elevated in no acute changes on EKG. Viral testing is negative for influenza or COVID. Chest x-ray negative for infiltrates/consolidation or venous congestion otherwise my interpretation is in agreement with radiology's impression. I do suspect that patient has musculoskeletal pain, he is strongly encouraged to follow-up with his primary care doctor for further evaluation of his symptoms. Differential Diagnosis Differential Diagnoses: The differential diagnosis associated with the presentation includes Please see the discussion above Admission/Observation Consideration of admission/observation: Escalation of care including admission/observation considered Please see the discussion above Lab Data [facility] Lab Attestation statement: I reviewed the patient's lab results. Please see the discussion above 08/18/23 01:18 08/18/23 01:18 Labs: Lab Results 08/18/23 08/18/23 08/18/23 Range/Units 01:18 05:33 08:08 WBC 8.6 (4.8-10.8) X10*3/uL RBC 4.27 L (4.60-5.80) X10*6/uL Hgb 13.2 L (14.0-18.0) g/dl Hct 38.5 L (42.0-52.0) % MCV 90.2 (80.0-98.0) fL MCH 30.9 (27.0-33.0) pg MCHC 34.3 (31.0-36.0) g/dl RDW 12.7 (11.0-16.0) % Plt Count 299 (160-400) X10*3/uL MPV 9.3 L (9.4-12.4) fL Immature Gran % (Auto) 0.3 (0.0-0.4) % Neut % (Auto) 67.7 (45-73) % Lymph % (Auto) 23.1 (20-40) % Routt % (Auto) 8.2 (2-11) % Eos % (Auto) 0.5 (0-4) % Baso % (Auto) 0.2 (0-2) % Lymph # (Auto) 2.0 (1.2-4.9) X10*3/uL Routt # (Auto) 0.7 (0.1-1.2) X10*3/uL Eos # (Auto) 0.0 (0.0-0.4) X10*3/uL Baso # (Auto) 0.0 (0.0-0.2) X10*3/uL Abs Immat Gran (auto) 0.03 (0.00-0.03) X10*3/uL Absolute Neuts (auto) 5.8 (2.0-8.3) x10*3/uL Absolute Nucleated RBC 0.000 (0.0-0.012) X10*3/uL Nucleated RBC % (auto) 0.0 (0.0-0.2) /100WBC Sodium 137 (135-145) mmol/L Potassium 4.9 (3.3-5.1) mmol/L Chloride 103 (96-108) mmol/L Carbon Dioxide 26 (22-29) mmol/L Anion Gap 13 (12-20) BUN 21 H (9-16) mg/dL Creatinine 1.04 (0.5-1.4) mg/dL Estim Creat Clear Calc 126.4 Estimated GFR > 60 Random Glucose 82 (60-115) mg/dL Calcium 9.4 (8.4-10.2) mg/dL Total Bilirubin 0.7 (0.0-1.0) mg/dL AST 41 H (5-37) U/L ALT 35 (0-40) U/L Alkaline Phosphatase 108 (39-117) U/L Troponin I High Sens 3.1 2.8 (<3.5-35.0) ng/L Total Protein 8.2 H (6.5-8.0) g/dL Albumin 4.3 (3.5-5.0) g/dL COVID-19 (JC) Negative (Negative) COVID-19 Clin Com See Note Influenza Type A (NGUYEN) Negative (Negative) Influenza Type B (NGUYEN) Negative (Negative) Influenza A & B Note See Note Independent Interpretation I performed an independent interpretation of an: EKG Interpretation: Normal sinus rhythm, HR-83, no STEMI, MO/QRS/QTC is within normal limits. Radiology Impression Discussion of test interpretation with radiology: I have reviewed the radiologist's reading. Radiologist Impression: Please see the discussion above External Record Review External record reviewed: Outpatient record, Prior outpatient labs and Prior outpatient radiology Chronic Conditions Patient?s care impacted by: Other Bipolar Social Determinants Patient?s care significantly limited by Social Determinants of Health including: Alcoholism and drug addiction in family and Other Social Determinant of Health Discharge Plan Discharge Clinical Impression: Atypical chest pain, Musculoskeletal pain Patient Disposition: Home, Self-Care Instructions: Chest Wall Pain (ED), Musculoskeletal Pain (ED) Additional Instructions: 1. Resume all home medications as prescribed. 2. Recommend [id number] Tylenol/ibuprofen as needed for pain control. 3. It is important that you follow-up with your primary care doctor in the next 1-2 days. Return to the ER for any worsening symptoms. Prescriptions: No Action nicotine 21 mg/24 hr Patch 24 Hour 21 mg transdermal DAILY PRN (Reason: smoking cessation) 28 Days Qty: 28 0RF Rx Instructions: remove at bedtime clonidine HCl 0.1 mg tablet 0.1 mg PO BID prazosin 1 mg capsule 3 mg PO BEDTIME trazodone 100 mg tablet 100 mg PO BEDTIME chlorpromazine 25 mg tablet 25 mg PO TID docusate sodium 100 mg capsule 100 mg PO BID hydroxyzine pamoate 50 mg capsule 50 mg PO TID PRN (Reason: anxiety) lamotrigine 100 mg tablet 100 mg PO DAILY gabapentin 600 mg tablet 600 mg PO TID nicotine (polacrilex) 4 mg gum 4 mg PO Q2H PRN (Reason: Nicotine Cravings) omeprazole 20 mg capsule,delayed release(DR/EC) 20 mg PO DAILY albuterol sulfate 90 mcg/actuation HFA aerosol inhaler 2 puff inhalation Q4H PRN (Reason: Shortness Of Breath Or Wheezing) lurasidone 40 mg tablet 40 mg PO BEDTIME methadone [Methadone Intensol] 10 mg/mL Concentrate 80 mg PO DAILY
[2023-08-18 08:49] LABS: COVID-19 Test Negative (Negative); IDNOW Serial# BCCEAD1C
[2023-08-18 08:50] LABS: IDNOW Serial# 08D9AD1C; Influenza A Negative (Negative); Influenza B2 Negative (Negative)
== END 2023-08-18 09:52 | disposition home or self-care (01) ==
PROVIDERS: Emergency Provider Student in an Organized Health Care Education/Training Program
DX: R07.89 Other chest pain (principal); I10 Essential (primary) hypertension; Z87.820 Personal history of traumatic brain injury; F17.210 Nicotine dependence, cigarettes, uncomplicated; Z11.52 Encounter for screening for COVID-19
CPT/HCPCS: 36415; 71046; 80053; 84484; 85025; 87502; 87635; 93005; 99283; 99285

== ENCOUNTER → 2023-08-18 01:11 | Outpatient (BNV) | payer MEDICAID, SELFPAY | PROVIDERS: Emergency Provider Student in an Organized Health Care Education/Training Program; Visit Provider Internal Medicine Cardiovascular Disease | DX: R07.9 Chest pain, unspecified (principal) | CPT/HCPCS: 93010 ==

== ENCOUNTER 2023-08-27 02:50 | Inpatient (IN) | payer OTHER, SELFPAY ==
--- NOTE | 2023-08-27 | ECG_ITS ---
Test Reason : POLYSUB USE Blood Pressure : / mmHG Vent. Rate : 075 BPM Atrial Rate : 075 BPM P-R Int : 144 ms QRS Dur : 094 ms QT Int : 410 ms P-R-T Axes : 062 041 059 degrees QTc Int : 457 ms Normal sinus rhythm with sinus arrhythmia Normal ECG When compared with ECG of 18-AUG-2023 01:11, No significant change was found Referred By: Juanita Tesfaye Electronically Signed By:KATIE ULLOA MD
[2023-08-27 02:51] VITALS: BP 141/99; PULSE 111; RESP 16; TEMP 36.1; O2SAT 97; BMI 33.9
--- NOTE | 2023-08-27 03:12 | ED.PSYCH ---
HPI - Psych General Chief Complaint: Psychiatric Symptoms Stated Complaint: SI Time Seen by Provider: 08/27/23 03:07 Source: patient and old records reviewed Mode of arrival: ambulatory Limitations: no limitations History of Present Illness HPI Narrative: 38 yo male with PMH of bipolar, PTSD, TBI, substance abuse on methadone did just get out of rehab and just relapsed yesterday here with c/o SI with reported plan. He is interested in rehab again as well. He has a stye on the left upper eyelid that is getting better. MD complaint: suicidal ideation, feels depressed and substance abuse Onset (ago): day(s) Duration: getting worse History of same: Yes Relieving factors: none Exacerbating factors: drug use Context: recent drug abuse Associated psychiatric symptoms: depression and suicidal ideation Associated symptoms: other (left upper eyelid stye) If self harm: admits thoughts of self harm and has plan Related Data Home Medications Medication Instructions Recorded Confirmed albuterol sulfate 90 mcg/actuation 2 puff inhalation Q4H PRN 04/02/23 04/02/23 aerosol inhaler Shortness Of Breath Or Wheezing chlorpromazine 25 mg tablet 25 mg PO TID 04/02/23 04/02/23 clonidine HCl 0.1 mg tablet 0.1 mg PO BID 04/02/23 04/02/23 docusate sodium 100 mg capsule 100 mg PO BID 04/02/23 04/02/23 gabapentin 600 mg tablet 600 mg PO TID 04/02/23 04/02/23 hydroxyzine pamoate 50 mg capsule 50 mg PO TID PRN anxiety 04/02/23 04/02/23 lamotrigine 100 mg tablet 100 mg PO DAILY 04/02/23 04/02/23 lurasidone 40 mg tablet 40 mg PO BEDTIME depressive 04/02/23 04/02/23 disorder nicotine (polacrilex) 4 mg gum 4 mg PO Q2H PRN Nicotine Cravings 04/02/23 04/02/23 omeprazole 20 mg capsule,delayed 20 mg PO DAILY 04/02/23 04/02/23 release prazosin 1 mg capsule 3 mg PO BEDTIME 04/02/23 04/02/23 trazodone 100 mg tablet 100 mg PO BEDTIME 04/02/23 04/02/23 methadone 10 mg/mL oral 70 mg PO DAILY 04/03/23 08/27/23 concentrate (Methadone Intensol) Previous Rx's Medication Instructions Recorded nicotine 21 mg/24 hr daily 21 mg transdermal DAILY PRN 03/04/23 transdermal patch smoking cessation 28 days #28 ea Allergies Allergy/AdvReac Type Severity Reaction Status Date / Time amoxicillin [AMOXICILLIN] Allergy Unknown HIVES Verified 08/18/23 01:25 Review of Systems Review of Systems: Constitutional : No Fever, No Chills ENT/Mouth : No Ear Pain, No Nasal Congestion, No sore throat Eyes: No Eye Pain, No Swelling, No Redness Cardiovascular : No Chest Pain, No SOB Respiratory : No Cough, No Sputum, No Dyspnea Gastrointestinal : No Nausea, No Vomiting, No Diarrhea, No Hematochezia, No Melena Genitourinary : No Dysuria, No Urinary Frequency, No Hematuria Musculoskeletal : No Myalgias Skin : No Skin Lesions, No rash Neuro : No Weakness, No Numbness, No Paresthesias, No Dizziness, No Headache Psych : positive Anxiety, positive Depression, positive SI no HI Heme/Lymph: No Lymphadenopathy Endocrine : No Polyuria, No Polydipsia All other systems reviewed and are negative [facility] Past Medical History Attestation statement: The following information was validated with the patient. Source: old records reviewed Medical History Polysubstance use disorder Hypertension Bipolar 2 disorder, major depressive episode TBI (traumatic brain injury) PTSD (post-traumatic stress disorder) Surgical History History of mandibular surgery Family History Family History Other No pertinent family history Social History Social History Household Members: None Housing: Homeless Do you presently have visiting nurse or other home services: No Alcohol intake: current Alcohol intake frequency: holidays/special occasions only Alcohol type: beer and hard liquor Patient Tobacco Use Status: Current everyday Tobacco user Tobacco use type: Cigarette Cigarette Packs Per Day: 2 Cigarettes Per Day: 40.0 Smoked in Last 30 Days: Yes Second Hand Smoke Exposure: No Use of substances other than those prescribed or required for medical reasons: Yes Substance Use Type: Crack/Cocaine Substance Use Frequency: Chronic Longstanding Advance Directives: No Advance Directives Information Provided: Yes service: No Sexual orientation: Straight/Heterosexual Physical Exam Vital Signs: Vital Signs: Last Vital Signs Temp 97.6 F 08/27/23 03:19 Pulse 102 H 08/27/23 03:19 Resp 17 08/27/23 03:19 BP 154/82 H 08/27/23 03:19 Pulse Ox 96 08/27/23 03:19 O2 Del Method Room Air 08/27/23 03:19 BMI result Body Mass Index 33.9 Appearance: Alert. Oriented X3. No acute distress. Eyes: Pupils equal, round and reactive to light. L upper inner eyelid small stye noted ENT: Pharynx normal. Neck: Normal inspection. Neck supple. CVS: Normal heart rate and rhythm. Pulses normal. Respiratory: No respiratory distress. Breath sounds normal. Abdomen: Soft and non-tender. Skin: Skin warm and dry. Normal skin color. Normal skin turgor. Extremities: No lower extremity edema. No calf ttp Neuro: Oriented X 3. No motor deficit. No sensory deficit. CN2-12 intact Course Course Course Narrative: Physician observation started at 359am. Patient placed in physician observation because the patient needed more time for CARE team to assess the need for psych admission. At the time observation was started the patient's vitals were stable, patient is alert and oriented, Neuro: nonfocal, CV RRR, Lungs clear Medical Decision Making Medical Decision Making [facility] Narrative: 38 yo male with PMH of bipolar, PTSD, TBI, substance abuse on methadone here with repeat relapse and now with SI at this time labs and CARE team consult. No medical complaints other than mild stye to left upper eyelid Differential Diagnosis Differential Diagnoses: The differential diagnosis associated with the presentation includes substance abuse, depression, SI Admission/Observation Consideration of admission/observation: Escalation of care including admission/observation considered Lab Data [facility] Lab Attestation statement: I reviewed the patient's lab results. External Record Review External record reviewed: Inpatient record Social Determinants Patient?s care significantly limited by Social Determinants of Health including: Problems related to primary support group Discharge Plan Discharge Clinical Impression: Opioid use disorder Depression Qualifiers: Depression Type: unspecified Qualified Code(s): F32.A - Depression, unspecified Patient Disposition: Still a Patient Prescriptions: No Action nicotine 21 mg/24 hr Patch 24 Hour 21 mg transdermal DAILY PRN (Reason: smoking cessation) 28 Days Qty: 28 0RF Rx Instructions: remove at bedtime clonidine HCl 0.1 mg tablet 0.1 mg PO BID prazosin 1 mg capsule 3 mg PO BEDTIME trazodone 100 mg tablet 100 mg PO BEDTIME chlorpromazine 25 mg tablet 25 mg PO TID docusate sodium 100 mg capsule 100 mg PO BID hydroxyzine pamoate 50 mg capsule 50 mg PO TID PRN (Reason: anxiety) lamotrigine 100 mg tablet 100 mg PO DAILY gabapentin 600 mg tablet 600 mg PO TID nicotine (polacrilex) 4 mg gum 4 mg PO Q2H PRN (Reason: Nicotine Cravings) omeprazole 20 mg capsule,delayed release(DR/EC) 20 mg PO DAILY albuterol sulfate 90 mcg/actuation HFA aerosol inhaler 2 puff inhalation Q4H PRN (Reason: Shortness Of Breath Or Wheezing) lurasidone 40 mg tablet 40 mg PO BEDTIME methadone [Methadone Intensol] 10 mg/mL Concentrate 70 mg PO DAILY Interventions: [place]-Suicide Risk Severity Scale Last Done: 08/27/23 03:49
[2023-08-27 03:19] VITALS: BP 154/82; PULSE 102; RESP 17; TEMP 36.4; O2SAT 96
[2023-08-27 04:02] LABS: Basophils Percent Auto 0.1 % (0-2); Eosinophils Absolute Auto 0.1 X10*3/uL (0.0-0.4); Eosinophils Percent Auto 0.9 % (0-4); Hematocrit 36.2 % (42.0-52.0); Hemoglobin 12.3 g/dl (14.0-18.0); Imm Gran Abs Auto 0.02 X10*3/uL (0.00-0.03); Imm Gran Pct Auto 0.2 % (0.0-0.4); Lymphocytes Absolute Auto 1.6 X10*3/uL (1.2-4.9); Lymphocytes Percent Auto 16.3 % (20-40); MANUAL DIFF FLAG NO; Mean Corpuscular Hemoglobin 30.9 pg (27.0-33.0); Mean Platelet Volume 9.3 fL (9.4-12.4); Monocytes Absolute Auto 0.7 X10*3/uL (0.1-1.2); Monocytes Percent Auto 7.2 % (2-11); Neutrophils Absolute Auto 7.2 x10*3/uL (2.0-8.3); Neutrophils Percent Auto 75.3 % (45-73); Platelet Count 320 X10*3/uL (160-400); Red Blood Count 3.98 X10*6/uL (4.60-5.80); Red Cell Distribution Width 12.8 % (11.0-16.0); White Blood Count 9.6 X10*3/uL (4.8-10.8)
[2023-08-27 04:14] LABS: Amphetamine Screen Urine Not Detected (Not Detect); Barbiturates, Urine Not Detected (Not Detect); Benzodiazepines Screen Urine POSITIVE (Not Detect); Cannabinoid Screen Urine Not Detected (Not Detect); Cocaine Screen Urine POSITIVE (Not Detect); Fentanyl, urine POSITIVE (Not Detect); Opiate Screen Urine POSITIVE (Not Detect); Phencyclidine Screen Urine Not Detected (Not Detect)
[2023-08-27 04:24] LABS: Alanine Aminotransferase 142 U/L (0-40); Alkaline Phosphatase 107 U/L (39-117); Anion Gap 14 (12-20); Aspartate Amino Transferase 84 U/L (5-37); Bilirubin Direct 0.2 mg/dL (0.0-0.5); Bilirubin Total 0.5 mg/dL (0.0-1.0); Blood Urea Nitrogen 15 mg/dL (9-16); Calcium 9.4 mg/dL (8.4-10.2); Carbon Dioxide 28 mmol/L (22-29); Chloride 103 mmol/L (96-108); Creatinine Clr Calc Pharmacy 146.5; Estimated Glomerular Filt Rate > 60; Ethanol < 10 mg/dL; Glucose Random 90 mg/dL (60-115); Magnesium 1.9 mg/dL (1.6-2.6); Potassium 4.5 mmol/L (3.3-5.1); Sodium 140 mmol/L (135-145); Total Protein 7.7 g/dL (6.5-8.0)
[2023-08-27 04:25] LABS: COVID-19 Test Negative (Negative); IDNOW Serial# 08D9AD1C
--- NOTE | 2023-08-27 06:15 | PC.NURSE ---
pt assessed, sleeping during the shift, bilateral chest rise observed
--- NOTE | 2023-08-27 08:27 | PC.NURSE ---
pt sleeping, woke to verbal stimulus, care team in speaking with patient at this time, will medicate patient upon the ending of their conversation.
[2023-08-27] MEDS: methADONE HCl 20 MG/2 ML ORAL.CONC 70 MG PO (08:38)
--- NOTE | 2023-08-27 08:42 | PC.NURSE ---
pt medicated per order
[2023-08-27 08:59] LABS: Appearance Urine Clear; Color Urine Yellow; Glucose Urine UA Negative (Negative); Leukocyte Esterase Urine Negative (Negative); Nitrite Urine Negative (Negative); Specific Gravity - Urine 1.025 (1.005-1.025); Urine Blood Negative (Negative); Urine Ketones Negative (Negative); Urine Protein Negative (Neg-Trace)
[2023-08-27 09:04] LABS: Bacteria Urine None Seen (None Seen); RBC Urine 0-2 /HPF (0-2); Squamous Epithelial Cell Urine 0-2 /HPF (0-2); WBC Urine 0-5 /HPF (0-5)
[2023-08-27 11:00] VITALS: BP 138/77; PULSE 66; RESP 18; TEMP 36.1; O2SAT 93
--- NOTE | 2023-08-27 12:30 | PC.NURSE ---
patient sleeping, respirations equal and non labored, will continue to monitor
--- NOTE | 2023-08-27 16:29 | PHA.MEDREC ---
Pharmacy Consult ? Medication Reconciliation Pharmacy has completed the medication reconciliation. Received list from [place], which did not show up on claim history. Patient report latuda and lamotrigene. Patient then confirmed the the rest of the medicaiton on list. Patient stated he is no longer on trazodone and they switch him to melatonin and remeron which both have no been filled since 05/21/23. Patient also reported using gabapentin schedule instead of PRN, this has not been filled since 06/14/23. Jemima Marcum, KeanuD
--- NOTE | 2023-08-27 17:46 | PC.NURSE ---
pt sleeping, woke to verbal stimulus for dinner, no c/o pain or discomfort at this time, will continue to monitor.
[2023-08-27] MEDS: Nicotine Polacrilex 2 MG GUM BUCCAL ×2 (19:35→21:58)
--- NOTE | 2023-08-27 19:47 | PC.NURSE ---
patient moderately visible in milieu asking for coffee and nicotine gum quiet pleasant no behavior mgmt problems.
[2023-08-27 21:10] VITALS: BP 113/73; PULSE 65; RESP 16; TEMP 36.1; O2SAT 95
[2023-08-27 22:05] VITALS: BP 146/73; PULSE 67; RESP 18; TEMP 36.4; O2SAT 98
[2023-08-27 23:26] VITALS: BMI 34.0
--- NOTE | 2023-08-28 00:33 | PC.ADMIT ---
Rey was admitted to [facility] on [place] [facility] [place]. He states he is depressed and anxious and feels overwhelmed, I just got out of a detox last week for alcohol. I just need some help to get my life back on track Per crisis report patient states that he sees no way out of his current situation other then suicide however, he denied suicidal ideation to this writer editor. Rey also denies auditory/visual hallucinations and homicidal ideation. The patient was oriented to the unit. Monitor for safety, treatment plan initiated.
[2023-08-28] MEDS: Nicotine Polacrilex 2 MG GUM 4 MG BUCCAL ×3 (07:11→22:31)
[2023-08-28 08:35] VITALS: BP 119/77; PULSE 79; TEMP 36.3; O2SAT 96
[2023-08-28] MEDS: methADONE HCl 20 MG/2 ML ORAL.CONC 70 MG PO (09:24)
[2023-08-28] MEDS: Omeprazole 20 MG CAPSULE.DR PO (09:25)
[2023-08-28] MEDS: Lurasidone HCl 20 MG TABLET 60 MG PO (09:25)
[2023-08-28] MEDS: busPIRone HCl 5 MG TABLET 15 MG PO ×3 (09:26→22:33)
[2023-08-28] MEDS: Gabapentin 600 MG TABLET PO ×3 (09:26→22:33)
[2023-08-28] MEDS: lamoTRIgine 25 MG TABLET 150 MG PO (09:27)
--- NOTE | 2023-08-28 12:02 | P.HPPS_ITS ---
HPI Date of Service: 08/28/23 Chief Complaint: SI HPI Narrative: per CARE team gladys gaspar self-presented to ED with c/o SI with plan to overdose on street drugs. reported 10 months sober with recent relapse and now worsening mood Sx in the context of medication non-compliance. on interview with , pt reports he had been ad [facility] in [place] for a week, then left 2 days prior to presentation. he reports he only used drugs once between the [facility] detox and coming into [facility]. he used opioids and cocaine. he denies using any alcohol. he denies use of benzos and alleges the benzo POS utox is as a result of valium he received at [facility]. on methadone maintenance. wants to get back on prior medications regimen, which was reviewed. agreed to work toward that. interested in DDx resi program. Past Psychiatric History: hosps: reports 3 SA: reported one prior via overdose OP: ignacio TRISTAN prescriber Trials: Latuda, Lamictal, Vistaril, Thorazine, Gabapentin, Clonidine Medical Evaluation Reviewed: Hospitalist Hussein Pending [facility] Medical History Polysubstance use disorder Hypertension Bipolar 2 disorder, major depressive episode TBI (traumatic brain injury) PTSD (post-traumatic stress disorder) Surgical History History of mandibular surgery Family History: Mental Health Substance use disorder Uncle suicided Social History: Born in [place]. Pt is an only child. 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 he had been sober for 10 months but then relapsed to substance use and homelessness. his utox was POS for opioids, cocaine, benzos, fentanyl. he states he had been at [facility] for 1 week detoxing until 2 days prior to presentation at [facility] and only used once between inpatient stays. he is on methadone maintenance. Trauma History: I have had a lot of trauma in my life Diagnostics Vital Signs (24Hr): Vital Signs - 24 hr 08/27/23 21:10 08/27/23 22:05 08/28/23 08:35 Temperature 97 F 97.5 F 97.4 F Pulse Rate 65 67 79 Respiratory Rate 16 18 Blood Pressure 113/73 146/73 H 119/77 Pulse Oximetry 95 98 96 Oxygen Delivery Method Room Air Room Air Room Air BMI result Body Mass Index 34.0 Labs 08/27/23 03:54 08/27/23 03:55 Labs: Laboratory Results - last 48 hr 08/27/23 08/27/23 03:54 03:55 WBC 9.6 RBC 3.98 L Hgb 12.3 L Hct 36.2 L MCV 91.0 MCH 30.9 MCHC 34.0 RDW 12.8 Plt Count 320 MPV 9.3 L Immature Gran % (Auto) 0.2 Neut % (Auto) 75.3 H Lymph % (Auto) 16.3 L Boyd % (Auto) 7.2 Eos % (Auto) 0.9 Baso % (Auto) 0.1 Lymph # (Auto) 1.6 Boyd # (Auto) 0.7 Eos # (Auto) 0.1 Baso # (Auto) 0.0 Abs Immat Gran (auto) 0.02 Absolute Neuts (auto) 7.2 Absolute Nucleated RBC 0.000 Nucleated RBC % (auto) 0.0 Sodium 140 Potassium 4.5 Chloride 103 Carbon Dioxide 28 Anion Gap 14 BUN 15 Creatinine 0.88 Estim Creat Clear Calc 146.5 Estimated GFR > 60 Random Glucose 90 Calcium 9.4 Magnesium 1.9 Total Bilirubin 0.5 Direct Bilirubin 0.2 AST 84 H ALT 142 H Alkaline Phosphatase 107 Total Protein 7.7 Albumin 4.0 Urine Color Yellow Urine Appearance Clear Urine pH 6.0 Ur Specific [place] 1.025 Urine Protein Negative Urine Glucose (UA) Negative Urine Ketones Negative Urine Blood Negative Urine Nitrite Negative Ur Leukocyte Esterase Negative Urine RBC 0-2 Urine WBC 0-5 Ur Squamous Epith Cells 0-2 Urine Bacteria None Seen Hyaline Casts 3-5 Urine Opiates Screen POSITIVE H Urine Fentanyl Screen POSITIVE H Ur Barbiturates Screen Not Detected Ur Phencyclidine Scrn Not Detected Ur Amphetamines Screen Not Detected U Benzodiazepines Scrn POSITIVE H Urine Cocaine Screen POSITIVE H U Marijuana (THC) Screen Not Detected Ethyl Alcohol < 10 COVID-19 (JC) Negative COVID-19 Clin Com See Note Meds/Allergies Meds Home Medications Medication Instructions Recorded Confirmed Type albuterol sulfate 90 mcg/actuation 2 puff inhalation Q4H PRN 04/02/23 08/27/23 History aerosol inhaler Shortness Of Breath Or Wheezing gabapentin 600 mg tablet 600 mg PO TID Anxiety 04/02/23 08/27/23 History hydroxyzine pamoate 50 mg capsule 50 mg PO TID PRN anxiety 04/02/23 08/27/23 History nicotine (polacrilex) 4 mg gum 4 mg PO Q2H PRN Nicotine Cravings 04/02/23 08/27/23 History omeprazole 20 mg capsule,delayed 20 mg PO DAILY 04/02/23 08/27/23 History release prazosin 1 mg capsule 3 mg PO BEDTIME 04/02/23 08/27/23 History methadone 10 mg/mL oral 70 mg PO DAILY 04/03/23 08/27/23 History concentrate (Methadone Intensol) buspirone 15 mg tablet 15 mg PO TID Anxiety 08/27/23 08/27/23 History chlorpromazine 50 mg tablet 50 mg PO TID PRN Anxiety 08/27/23 08/27/23 History lamotrigine 150 mg tablet 150 mg PO DAILY 08/27/23 08/27/23 History lurasidone 60 mg tablet 60 mg PO DAILY 08/27/23 08/27/23 History melatonin 3 mg tablet 6 mg PO BEDTIME 08/27/23 08/27/23 History mirtazapine 15 mg tablet 15 mg PO BEDTIME 08/27/23 08/27/23 History Allergies Allergies Allergy/AdvReac Type Severity Reaction Status Date / Time amoxicillin [AMOXICILLIN] Allergy Unknown HIVES Verified 08/18/23 01:25 Mental Status Exam Mental Status Exam Narrative: disheveled, numerous facial piercings. cooperative, no PMA/PMR. speech sparse and slowed, nml loudness, latency. thoughts linear and logical. affect constricted, normo-intense, non-labile. mood very depressed. passive SI, vague. denies HI/AVH. Assessment & Plan Assessment & Plan (1) Depression: Status: Acute Qualifiers: Depression Type: unspecified Qualified Code(s): F32.A - Depression, unspecified Code(s): F32.A - Depression, unspecified (2) Polysubstance use disorder: Status: Acute Code(s): F19.90 - Other psychoactive substance use, unspecified, uncomplicated (3) TBI (traumatic brain injury): Status: Chronic Code(s): S06.9X9A - Unspecified intracranial injury with loss of consciousness of unspecified duration, initial encounter Plan not at risk of withdrawal due to recent schedule of use. restart on home regimen, titrating meds up gradually as indicated. refer for CSS. Patient educated on: medication risk/benefits and substance abuse Reason for continued inpatient stay Substantial Risk for: inability to function and rapid decompensation Statement Statement: I have reviewed the history and physical and performed a pertinent examination on my patient. No changes have occurred unless specified. If the History and Physical was not performed prior to admission, the Hospitalist's service will be consulted for completing the admission physical. Time Spent With Patient Time: Total time managing care of this patient today __55__ minutes.
[2023-08-28 22:30] VITALS: BP 126/59; PULSE 66; RESP 15; TEMP 36.2; O2SAT 97
[2023-08-28] MEDS: Mirtazapine 15 MG TABLET PO (22:31)
[2023-08-28] MEDS: Melatonin 3 MG TABLET 6 MG PO (22:31)
[2023-08-28] MEDS: Prazosin HCL 1 MG CAPSULE 3 MG PO (22:32)
[2023-08-28] MEDS: Albuterol Sulfate 90 MCG 8 GM INHALER 2 PUFF INHALE (22:34)
[2023-08-28] MEDS: chlorproMAZINE HCl 25 MG TABLET 50 MG PO (22:38)
[2023-08-28] MEDS: Ibuprofen 400 MG TABLET PO (23:22)
[2023-08-29] MEDS: hydrOXYzine HCL 50 MG TABLET PO (03:58)
[2023-08-29] MEDS: methADONE HCl 20 MG/2 ML ORAL.CONC 70 MG PO (09:11)
[2023-08-29] MEDS: Lurasidone HCl 20 MG TABLET 60 MG PO (09:12)
[2023-08-29] MEDS: busPIRone HCl 5 MG TABLET 15 MG PO ×3 (09:13→22:07)
[2023-08-29] MEDS: lamoTRIgine 25 MG TABLET 50 MG PO (09:13)
[2023-08-29] MEDS: Omeprazole 20 MG CAPSULE.DR PO (09:14)
[2023-08-29] MEDS: Gabapentin 600 MG TABLET PO ×3 (09:14→22:08)
[2023-08-29] MEDS: Nicotine Polacrilex 2 MG GUM 4 MG BUCCAL ×4 (09:14→21:03)
[2023-08-29 12:16] VITALS: BP 126/72; PULSE 85; RESP 18; TEMP 36.3; O2SAT 97
--- NOTE | 2023-08-29 19:25 | HO.PSYCHPN ---
Subjective Subjective Date of Service: 08/29/23 Reason For Visit: SI Interim History: c/o anxiety. agrees to make use of the various PRNs he has available. no other complaints or requests. per staff, slept much of the day yesterday. c/o anx/dep. slept 5 hrs overnight. c/o back pain. restless overnight. Mental Status Exam Mental Status Exam Narrative: disheveled, numerous facial piercings. cooperative, no PMA/PMR. speech sparse and slowed, nml loudness, latency. thoughts linear and logical. affect constricted, normo-intense, non-labile. mood very depressed. passive SI, vague. denies HI/AVH. Diagnostics Vital Signs (24Hr): Vital Signs - 24 hr 08/28/23 22:30 08/29/23 12:16 Temperature 97.2 F 97.4 F Pulse Rate 66 85 Respiratory Rate 15 18 Blood Pressure 126/59 L 126/72 Pulse Oximetry 97 97 Oxygen Delivery Method Room Air Room Air BMI result Body Mass Index 34.0 Labs 08/27/23 03:54 08/27/23 03:55 Medications Medications Current Medications Albuterol Sulfate (Albuterol Sulfate 90 Mcg 8 Gm Inhaler) 2 puff INHALE RQ4H PRN PRN Reason: Shortness of Breath Last Admin: 08/28/23 22:34 Dose: 2 puff Buspirone HCl (Buspirone Hcl 5 Mg Tablet) 15 mg PO TID [facility] Last Admin: 08/29/23 16:01 Dose: 15 mg Chlorpromazine HCl (Chlorpromazine Hcl 25 Mg Tablet) 50 mg PO TID PRN PRN Reason: agitation Last Admin: 08/28/23 22:38 Dose: 50 mg Gabapentin (Gabapentin 600 Mg Tablet) 600 mg PO TID [facility] Last Admin: 08/29/23 16:01 Dose: 600 mg Hydroxyzine HCl (Hydroxyzine Hcl 50 Mg Tablet) 50 mg PO TID PRN PRN Reason: anxiety/restlessness Last Admin: 08/29/23 03:58 Dose: 50 mg Ibuprofen (Ibuprofen 400 Mg Tablet) 400 mg PO Q6H PRN PRN Reason: Pain, Moderate(Pain Scale 4-6) Last Admin: 08/28/23 23:22 Dose: 400 mg Lamotrigine (Lamotrigine 25 Mg Tablet) 50 mg PO DAILY [facility] Last Admin: 08/29/23 09:13 Dose: 50 mg Lurasidone HCl (Lurasidone Hcl 20 Mg Tablet) 60 mg PO DAILY [facility] Last Admin: 08/29/23 09:12 Dose: 60 mg Melatonin (Melatonin 3 Mg Tablet) 6 mg PO BEDTIME [facility] Last Admin: 08/28/23 22:31 Dose: 6 mg Methadone HCl (Methadone Hcl 20 Mg/2 Ml Oral.Conc) 70 mg PO DAILY [facility] Last Admin: 08/29/23 09:11 Dose: 70 mg Mirtazapine (Mirtazapine 15 Mg Tablet) 15 mg PO BEDTIME [facility] Last Admin: 08/28/23 22:31 Dose: 15 mg Nicotine (Nicotine 21 Mg Patch.Td24) 21 mg TRANSDERMA DAILY [facility] Last Admin: 08/29/23 09:48 Dose: Not Given Nicotine Polacrilex (Nicotine Polacrilex 2 Mg Gum) 4 mg BUCCAL Q2H PRN PRN Reason: Nicotine Cravings Last Admin: 08/29/23 17:44 Dose: 4 mg Omeprazole (Omeprazole 20 Mg Capsule.Dr) 20 mg PO DAILY@0630 [facility] Last Admin: 08/29/23 09:14 Dose: 20 mg Prazosin HCl (Prazosin Hcl 1 Mg Capsule) 3 mg PO BEDTIME [facility]; Protocol Last Admin: 08/28/23 22:32 Dose: 3 mg Allergies Allergies Allergy/AdvReac Type Severity Reaction Status Date / Time amoxicillin [AMOXICILLIN] Allergy Unknown HIVES Verified 08/18/23 01:25 Assessment & Plan Assessment & Plan (1) Depression: Qualifiers: Depression Type: unspecified Qualified Code(s): F32.A - Depression, unspecified Status: Acute Code(s): F32.A - Depression, unspecified (2) Polysubstance use disorder: Status: Acute Code(s): F19.90 - Other psychoactive substance use, unspecified, uncomplicated (3) TBI (traumatic brain injury): Status: Chronic Code(s): S06.9X9A - Unspecified intracranial injury with loss of consciousness of unspecified duration, initial encounter Plan 08/28: not at risk of withdrawal due to recent schedule of use. restart on home regimen, titrating meds up gradually as indicated. refer for CSS. 08/29: c/o anxiety. encouraged to make use of available PRNs. otherwise continue current mgmt. Reason for continued inpatient stay Substantial Risk for: inability to function and rapid decompensation Time Spent With Patient Time: Total time managing care of this patient today ____ minutes.
[2023-08-29 20:45] VITALS: BP 126/71; PULSE 69; RESP 16; TEMP 36.7; O2SAT 94
[2023-08-29 22:06] VITALS: BP 131/77; PULSE 80; RESP 18; TEMP 36.6; O2SAT 98
[2023-08-29] MEDS: Mirtazapine 15 MG TABLET PO (22:08)
[2023-08-29] MEDS: Melatonin 3 MG TABLET 6 MG PO (22:08)
[2023-08-29] MEDS: chlorproMAZINE HCl 25 MG TABLET 50 MG PO (22:08)
[2023-08-29] MEDS: Prazosin HCL 1 MG CAPSULE 3 MG PO (22:08)
[2023-08-29] MEDS: Ibuprofen 400 MG TABLET PO (22:09)
[2023-08-30] MEDS: Nicotine Polacrilex 2 MG GUM 4 MG BUCCAL ×5 (05:07→20:18)
[2023-08-30 09:30] VITALS: BP 129/82; PULSE 88; RESP 18; TEMP 36.4; O2SAT 97
[2023-08-30] MEDS: methADONE HCl 20 MG/2 ML ORAL.CONC 70 MG PO (09:50)
[2023-08-30] MEDS: Lurasidone HCl 20 MG TABLET 60 MG PO (09:50)
[2023-08-30] MEDS: busPIRone HCl 5 MG TABLET 15 MG PO ×3 (09:51→20:19)
[2023-08-30] MEDS: lamoTRIgine 25 MG TABLET 50 MG PO (09:51)
[2023-08-30] MEDS: Gabapentin 600 MG TABLET PO ×3 (09:52→20:18)
[2023-08-30] MEDS: Omeprazole 20 MG CAPSULE.DR PO (09:52)
[2023-08-30] MEDS: Nicotine 21 MG PATCH.TD24 TRANSDERMA (10:08)
--- NOTE | 2023-08-30 14:34 | HO.PSYCHPN ---
Subjective Subjective Date of Service: 08/30/23 Reason For Visit: SI Interim History: calm, cooperative. c/o malar rash, states usually uses triamcinolone. states he is catching up on sleep but trying to spend more time outside his room. no questions or complaints otherwise. per staff, dep/anx. flat,pleasant. sleeping ost of the day, eves, overnight. c/o back pain eves. Mental Status Exam Mental Status Exam Narrative: disheveled, numerous facial piercings. cooperative, no PMA/PMR. speech nml rate and amount, nml loudness, latency. thoughts linear and logical. affect constricted, normo-intense, non-labile. mood not assessed. no SI/HI/AVH. Diagnostics Vital Signs (24Hr): Vital Signs - 24 hr 08/29/23 20:45 08/29/23 22:06 08/30/23 09:30 Temperature 98.1 F 97.9 F 97.6 F Pulse Rate 69 80 88 Respiratory Rate 16 18 18 Blood Pressure 126/71 131/77 129/82 Pulse Oximetry 94 98 97 Oxygen Delivery Method Room Air Room Air Room Air BMI result Body Mass Index 34.0 Labs 08/27/23 03:54 08/27/23 03:55 Medications Medications Current Medications Albuterol Sulfate (Albuterol Sulfate 90 Mcg 8 Gm Inhaler) 2 puff INHALE RQ4H PRN PRN Reason: Shortness of Breath Last Admin: 08/28/23 22:34 Dose: 2 puff Buspirone HCl (Buspirone Hcl 5 Mg Tablet) 15 mg PO TID [facility] Last Admin: 08/30/23 14:08 Dose: 15 mg Chlorpromazine HCl (Chlorpromazine Hcl 25 Mg Tablet) 50 mg PO TID PRN PRN Reason: agitation Last Admin: 08/29/23 22:08 Dose: 50 mg Gabapentin (Gabapentin 600 Mg Tablet) 600 mg PO TID [facility] Last Admin: 08/30/23 14:08 Dose: 600 mg Hydroxyzine HCl (Hydroxyzine Hcl 50 Mg Tablet) 50 mg PO TID PRN PRN Reason: anxiety/restlessness Last Admin: 08/29/23 03:58 Dose: 50 mg Ibuprofen (Ibuprofen 400 Mg Tablet) 400 mg PO Q6H PRN PRN Reason: Pain, Moderate(Pain Scale 4-6) Last Admin: 08/29/23 22:09 Dose: 400 mg Lamotrigine (Lamotrigine 25 Mg Tablet) 50 mg PO DAILY [facility] Last Admin: 08/30/23 09:51 Dose: 50 mg Lurasidone HCl (Lurasidone Hcl 20 Mg Tablet) 60 mg PO DAILY [facility] Last Admin: 08/30/23 09:50 Dose: 60 mg Melatonin (Melatonin 3 Mg Tablet) 6 mg PO BEDTIME [facility] Last Admin: 08/29/23 22:08 Dose: 6 mg Methadone HCl (Methadone Hcl 20 Mg/2 Ml Oral.Conc) 70 mg PO DAILY [facility] Last Admin: 08/30/23 09:50 Dose: 70 mg Mirtazapine (Mirtazapine 15 Mg Tablet) 15 mg PO BEDTIME [facility] Last Admin: 08/29/23 22:08 Dose: 15 mg Nicotine (Nicotine 21 Mg Patch.Td24) 21 mg TRANSDERMA DAILY [facility] Last Admin: 08/30/23 10:08 Dose: 21 mg Nicotine Polacrilex (Nicotine Polacrilex 2 Mg Gum) 4 mg BUCCAL Q2H PRN PRN Reason: Nicotine Cravings Last Admin: 08/30/23 14:09 Dose: 4 mg Omeprazole (Omeprazole 20 Mg Capsule.Dr) 20 mg PO DAILY@0630 [facility] Last Admin: 08/30/23 09:52 Dose: 20 mg Prazosin HCl (Prazosin Hcl 1 Mg Capsule) 3 mg PO BEDTIME [facility]; Protocol Last Admin: 08/29/23 22:08 Dose: 3 mg Triamcinolone Acetonide (Triamcinolone Acet 0.025 % Cream 15 Gm Tube) 1 appl TOPICAL BID [facility]; Protocol Allergies Allergies Allergy/AdvReac Type Severity Reaction Status Date / Time amoxicillin [AMOXICILLIN] Allergy Unknown HIVES Verified 08/18/23 01:25 Assessment & Plan Assessment & Plan (1) Depression: Qualifiers: Depression Type: unspecified Qualified Code(s): F32.A - Depression, unspecified Status: Acute Code(s): F32.A - Depression, unspecified (2) Polysubstance use disorder: Status: Acute Code(s): F19.90 - Other psychoactive substance use, unspecified, uncomplicated (3) TBI (traumatic brain injury): Status: Chronic Code(s): S06.9X9A - Unspecified intracranial injury with loss of consciousness of unspecified duration, initial encounter Plan 08/28: not at risk of withdrawal due to recent schedule of use. restart on home regimen, titrating meds up gradually as indicated. refer for CSS. 08/29: c/o anxiety. encouraged to make use of available PRNs. otherwise continue current mgmt. 08/30: add triamcinolone for malar rash, appears psoriatic. otherwise continue current mgmt. sleeping a lot. Reason for continued inpatient stay Substantial Risk for: inability to function and rapid decompensation Time Spent With Patient Time: Total time managing care of this patient today ____ minutes.
[2023-08-30] MEDS: Triamcinolone Acet 0.025 % Cream 15 GM TUBE 1 APPL TOPICAL (15:30)
--- NOTE | 2023-08-30 17:22 | PC.NURSE ---
Pt c/o red swollen and painful L eyelidShahram MD made aware. Hospitalist consult placed and contacted at [phone].
[2023-08-30] MEDS: Ibuprofen 400 MG TABLET PO (20:18)
[2023-08-30] MEDS: chlorproMAZINE HCl 25 MG TABLET 50 MG PO (20:18)
[2023-08-30] MEDS: hydrOXYzine HCL 50 MG TABLET PO (20:19)
[2023-08-30] MEDS: Mirtazapine 15 MG TABLET PO (20:19)
[2023-08-30] MEDS: Prazosin HCL 1 MG CAPSULE 3 MG PO (20:19)
[2023-08-30] MEDS: Melatonin 3 MG TABLET 6 MG PO (20:19)
[2023-08-30 20:20] VITALS: BP 121/70; PULSE 78; RESP 16; TEMP 36.4; O2SAT 96
[2023-08-31 07:35] VITALS: BP 130/69; PULSE 92; RESP 16; TEMP 35.8; O2SAT 100
[2023-08-31] MEDS: Nicotine Polacrilex 2 MG GUM 4 MG BUCCAL (08:41)
[2023-08-31] MEDS: methADONE HCl 20 MG/2 ML ORAL.CONC 70 MG PO (09:13)
[2023-08-31] MEDS: Lurasidone HCl 20 MG TABLET 60 MG PO (09:14)
[2023-08-31] MEDS: Omeprazole 20 MG CAPSULE.DR PO (09:15)
[2023-08-31] MEDS: busPIRone HCl 5 MG TABLET 15 MG PO (09:15)
[2023-08-31] MEDS: Gabapentin 600 MG TABLET PO (09:15)
[2023-08-31] MEDS: lamoTRIgine 25 MG TABLET 50 MG PO (09:15)
[2023-08-31] MEDS: Nicotine 21 MG PATCH.TD24 TRANSDERMA (09:16)
--- NOTE | 2023-08-31 10:22 | P.DS_ITS ---
DS: Providers Provider Date of Service: 08/31/23 Date of admission: 08/27/23 21:59 Primary care physician: Unknown Physician Consults: 08/30/23 14:41 Consult to Hospitalist Routine Comment: new onset Consulting Provider: Hospitalist Reason For Exam: Red, swollen & painful L eye lid DS: Diagnosis Discharge Diagnosis (1) Depression: Status: Acute (2) Polysubstance use disorder: Status: Acute (3) TBI (traumatic brain injury): Status: Chronic DS: Medications Discharge Medications Home Medications: Home Medications Medication Instructions Recorded Confirmed nicotine (polacrilex) 4 mg gum 4 mg PO Q2H PRN Nicotine Cravings 04/02/23 08/27/23 methadone 10 mg/mL oral 70 mg PO DAILY 04/03/23 08/27/23 concentrate (Methadone Intensol) Previous Rx's Medication Instructions Recorded nicotine 21 mg/24 hr daily 21 mg transdermal DAILY PRN 03/04/23 transdermal patch smoking cessation 28 days #28 ea albuterol sulfate 90 mcg/actuation 2 puff inhalation Q4H PRN 08/31/23 aerosol inhaler Shortness Of Breath Or Wheezing 30 days #1 inhaler buspirone 15 mg tablet 15 mg PO TID Anxiety 30 days #90 08/31/23 tabs chlorpromazine 50 mg tablet 50 mg PO BID PRN Anxiety 30 days 08/31/23 #60 tabs gabapentin 600 mg tablet 600 mg PO TID Anxiety 30 days #90 08/31/23 tabs lamotrigine 25 mg tablet 50 mg (2 x 25 mg) PO DAILY 30 days 08/31/23 #60 tabs lurasidone 60 mg tablet 60 mg PO DAILY 30 days #30 tabs 08/31/23 melatonin 3 mg tablet 6 mg (2 x 3 mg) PO BEDTIME 30 days 08/31/23 #60 tabs mirtazapine 15 mg tablet 15 mg PO BEDTIME 30 days #30 tabs 08/31/23 omeprazole 20 mg capsule,delayed 20 mg PO DAILY 30 days #30 caps 08/31/23 release prazosin 1 mg capsule 3 mg (3 x 1 mg) PO BEDTIME 30 days 08/31/23 #90 caps triamcinolone acetonide 0.025 % 1 appl topical BID 30 days #15 08/31/23 topical cream grams Mental Status Exam Mental Status Exam Narrative: adequately groomes, numerous facial piercings. cooperative, no PMA/PMR. speech nml rate and amount, nml loudness, latency. thoughts linear and logical. affect flexible, normo-intense, non-labile. mood good. no SI/HI/AVH. Data Data Completed and Pending Completed studies during hospitalization [Text1]: 08/27/23 08/27/23 03:54 03:55 WBC 9.6 RBC 3.98 L Hgb 12.3 L Hct 36.2 L MCV 91.0 MCH 30.9 MCHC 34.0 RDW 12.8 Plt Count 320 MPV 9.3 L Immature Gran % (Auto) 0.2 Neut % (Auto) 75.3 H Lymph % (Auto) 16.3 L Baldwin % (Auto) 7.2 Eos % (Auto) 0.9 Baso % (Auto) 0.1 Lymph # (Auto) 1.6 Baldwin # (Auto) 0.7 Eos # (Auto) 0.1 Baso # (Auto) 0.0 Abs Immat Gran (auto) 0.02 Absolute Neuts (auto) 7.2 Absolute Nucleated RBC 0.000 Nucleated RBC % (auto) 0.0 Sodium 140 Potassium 4.5 Chloride 103 Carbon Dioxide 28 Anion Gap 14 BUN 15 Creatinine 0.88 Estim Creat Clear Calc 146.5 Estimated GFR > 60 Random Glucose 90 Calcium 9.4 Magnesium 1.9 Total Bilirubin 0.5 Direct Bilirubin 0.2 AST 84 H ALT 142 H Alkaline Phosphatase 107 Total Protein 7.7 Albumin 4.0 Urine Color Yellow Urine Appearance Clear Urine pH 6.0 Ur Specific [place] 1.025 Urine Protein Negative Urine Glucose (UA) Negative Urine Ketones Negative Urine Blood Negative Urine Nitrite Negative Ur Leukocyte Esterase Negative Urine RBC 0-2 Urine WBC 0-5 Ur Squamous Epith Cells 0-2 Urine Bacteria None Seen Hyaline Casts 3-5 Urine Opiates Screen POSITIVE H Urine Fentanyl Screen POSITIVE H Ur Barbiturates Screen Not Detected Ur Phencyclidine Scrn Not Detected Ur Amphetamines Screen Not Detected U Benzodiazepines Scrn POSITIVE H Urine Cocaine Screen POSITIVE H U Marijuana (THC) Screen Not Detected Ethyl Alcohol < 10 COVID-19 (JC) Negative COVID-19 Clin Com See Note DS: Summary Hospital Course Hospital Course: per 08/28 admission note: per CARE team gladys gaspar self-presented to ED with c/o SI with plan to overdose on street drugs. reported 10 months sober with recent relapse and now worsening mood Sx in the context of medication non-compliance. on interview with , pt reports he had been ad [facility] in [place] for a week, then left 2 days prior to presentation. he reports he only used drugs once between the [facility] detox and coming into [facility]. he used opioids and cocaine. he denies using any alcohol. he denies use of benzos and alleges the benzo POS utox is as a result of valium he received at [facility]. on methadone maintenance. wants to get back on prior medications regimen, which was reviewed. agreed to work toward that. interested in DDx resi program. Past Psychiatric History: hosps: reports 3 SA: reported one prior via overdose OP: ignacio TRISTAN prescriber Trials: Latuda, Lamictal, Vistaril, Thorazine, Gabapentin, Clonidine Medical Evaluation Reviewed: Hospitalist Hussein Pending [facility] Medical History Polysubstance use disorder Hypertension Bipolar 2 disorder, major depressive episode TBI (traumatic brain injury) PTSD (post-traumatic stress disorder) Surgical History History of mandibular surgery Family History: Mental Health Substance use disorder Uncle suicided Social History: Born in [place]. Pt is an only child. 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 he had been sober for 10 months but then relapsed to substance use and homelessness. his utox was POS for opioids, cocaine, benzos, fentanyl. he states he had been at [facility] for 1 week detoxing until 2 days prior to presentation at [facility] and only used once between inpatient stays. he is on methadone maintenance. Trauma History: I have had a lot of trauma in my life Precis: 08/28: not at risk of withdrawal due to recent schedule of use. restart on home regimen, titrating meds up gradually as indicated. refer for CSS. 08/29: c/o anxiety. encouraged to make use of available PRNs. otherwise continue current mgmt. 08/30: add triamcinolone for malar rash, appears psoriatic. otherwise continue current mgmt. sleeping a lot. 08/31: up and about since yesterday afternoon, asking for discharge today. feeling more energetic and upbeat. meds reviewed, reconciled, prescribed. discharged as per pt request. Time Spent with Patient Time attestation: Total time managing care of this patient today ____ minutes. Time spent: Greater than 30 minutes Discharge Plan Discharge Anticipated Discharge Date/Time: 08/31/23 11:00 Patient Disposition: Home, Self-Care Discharge Diagnosis: Depressive Disorder NOS Polysubstance Use Disorder Referrals: MEDICATION MANAGEMENT [Other] - 1 Week (METHADONE CLINIC TO ASSIST WITH COORDINATING) [facility] [Other] - 1 Week (If you have any questions or concerns, please utilize the walk in service or give them a call. ) Discharge Medications: New lamotrigine 25 mg Tablet 50 mg PO DAILY 30 Days Qty: 60 0RF triamcinolone acetonide 0.025 % Cream 1 appl topical BID 30 Days Qty: 15 0RF Protocol: Apply to: Apply to: affected areas of the face Continued nicotine 21 mg/24 hr Patch 24 Hour 21 mg transdermal DAILY PRN (Reason: smoking cessation) 28 Days Qty: 28 0RF Rx Instructions: remove at bedtime gabapentin 600 mg tablet 600 mg PO TID 30 Days Qty: 90 0RF prazosin 1 mg capsule 3 mg PO BEDTIME 30 Days Qty: 90 0RF melatonin 3 mg Tablet 6 mg PO BEDTIME 30 Days Qty: 60 0RF omeprazole 20 mg capsule,delayed release(DR/EC) 20 mg PO DAILY 30 Days Qty: 30 0RF mirtazapine 15 mg Tablet 15 mg PO BEDTIME 30 Days Qty: 30 0RF albuterol sulfate 90 mcg/actuation HFA aerosol inhaler 2 puff inhalation Q4H PRN (Reason: Shortness Of Breath Or Wheezing) 30 Days Qty: 1 0RF buspirone 15 mg Tablet 15 mg PO TID 30 Days Qty: 90 0RF lurasidone 60 mg Tablet 60 mg PO DAILY 30 Days Qty: 30 0RF Rx Instructions: must administer with food (at least 350 calories) nicotine (polacrilex) 4 mg gum 4 mg PO Q2H PRN (Reason: Nicotine Cravings) methadone [Methadone Intensol] 10 mg/mL Concentrate 70 mg PO DAILY Changed chlorpromazine 50 mg Tablet 50 mg PO BID PRN (Reason: Anxiety) 30 Days Qty: 60 0RF Discontinued lamotrigine 150 mg Tablet 150 mg PO DAILY hydroxyzine pamoate 50 mg capsule 50 mg PO TID PRN (Reason: anxiety) Discharge Orders: Discharge Order (Routine); Ordered 08/31/23 Ordered By: Vineet Cardona Diet: Advance to usual diet Activity on Discharge: As tolerated Stand Alone Forms: Patient Portal Discharge page, Community Support Care Plan Goals: remain safe and stable and sober in the outpatient treatment setting Health Concerns: none Plan of Treatment: take medications as prescribed, attend appointments as scheduled Assessment: not at imminent risk of harm to self or others Discharge Date/Time: 08/31/23 11:30
--- NOTE | 2023-08-31 12:31 | PM.EVENT ---
Event Note Date of Service: 08/31/23 Event Note: Patient is a 38-year-old male with a PMH significant for TBI, substance abuse disorder methadone, PTSD, and bipolar disorder who was admitted to him 3 psychiatry unit for increasing depression with SI with plan. Medical consult for red and swollen left eyelid. Attempted to see patient however he had already been discharged from facility early year and the morning. Spoke to nursing and from description of lesion it was most likely a hordeolum/stye, which would only be treated with warm compresses and eyelid massaging. Time Spent With Patient Time: Total time managing care of this patient today ____ minutes.
== END 2023-08-31 11:30 | disposition home or self-care (01) | DRG 754 ==
LOC: HO.ED 22:13 → HO.PADLT16 22:57
PROVIDERS: Emergency Medicine Emergency Medical Services; Admitting Provider Psychiatry & Neurology Psychiatry; Emergency Provider Emergency Medicine; Visit Provider Psychiatry & Neurology Psychiatry
DX: F32.A Depression, unspecified (principal); R45.851 Suicidal ideations; Z91.148 Patient's other noncompliance with medication regimen for other reason; F11.20 Opioid dependence, uncomplicated; F43.10 Post-traumatic stress disorder, unspecified; H00.014 Hordeolum externum left upper eyelid; F17.210 Nicotine dependence, cigarettes, uncomplicated; Z20.822 Contact with and (suspected) exposure to COVID-19; Z59.02 Unsheltered homelessness; Z87.820 Personal history of traumatic brain injury; Z71.6 Tobacco abuse counseling; Z79.899 Other long term (current) drug therapy
CPT/HCPCS: 80048; 80076; 80307; 81001; 83735; 85025; 87635; 93005; 99285; S9485

== ENCOUNTER → 2023-08-27 08:45 | Outpatient (BNV) | payer MEDICAID, SELFPAY | PROVIDERS: Emergency Provider Emergency Medicine; Visit Provider Internal Medicine Cardiovascular Disease | DX: R07.9 Chest pain, unspecified (principal) | CPT/HCPCS: 93010 ==

== ENCOUNTER → 2023-08-27 21:59 | Outpatient (BNV) | payer OTHER, SELFPAY | PROVIDERS: Admitting Provider Psychiatry & Neurology Psychiatry; Emergency Provider Emergency Medicine; Visit Provider Psychiatry & Neurology Psychiatry | DX: F33.2 Major depressive disorder, recurrent severe without psychotic features (principal); F19.90 Other psychoactive substance use, unspecified, uncomplicated; S06.9X9D Unspecified intracranial injury with loss of consciousness of unspecified duration, subsequent encounter | CPT/HCPCS: 99231; 99232; 99233 ==

== ENCOUNTER 2023-09-01 21:02 | Emergency (ER) | payer OTHER, SELFPAY ==
[2023-09-01 21:26] VITALS: BP 113/44; PULSE 96; RESP 18; TEMP 36.9; O2SAT 96; BMI 34.9
--- NOTE | 2023-09-01 21:32 | ECG_ITS ---
Test Reason : CHECK QTC INTERVAL Blood Pressure : / mmHG Vent. Rate : 089 BPM Atrial Rate : 089 BPM P-R Int : 134 ms QRS Dur : 088 ms QT Int : 380 ms P-R-T Axes : 078 048 057 degrees QTc Int : 462 ms Normal sinus rhythm Normal ECG When compared with ECG of 27-AUG-2023 08:45, No significant change was found Referred By: Generic ED Physician Electronically Signed By:AMARI WORTHY
[2023-09-01 22:20] LABS: MANUAL DIFF FLAG NO
[2023-09-01 22:22] LABS: Basophils Percent Auto 0.3 % (0-2); Eosinophils Absolute Auto 0.1 X10*3/uL (0.0-0.4); Eosinophils Percent Auto 0.9 % (0-4); Hematocrit 36.8 % (42.0-52.0); Hemoglobin 12.6 g/dl (14.0-18.0); Imm Gran Abs Auto 0.03 X10*3/uL (0.00-0.03); Imm Gran Pct Auto 0.3 % (0.0-0.4); Lymphocytes Absolute Auto 1.8 X10*3/uL (1.2-4.9); Lymphocytes Percent Auto 18.2 % (20-40); Mean Corpuscular HGB Conc 34.2 g/dl (31.0-36.0); Mean Corpuscular Hemoglobin 30.7 pg (27.0-33.0); Mean Corpuscular Volume 89.5 fL (80.0-98.0); Mean Platelet Volume 9.2 fL (9.4-12.4); Monocytes Absolute Auto 0.7 X10*3/uL (0.1-1.2); Monocytes Percent Auto 6.8 % (2-11); Neutrophils Absolute Auto 7.4 x10*3/uL (2.0-8.3); Neutrophils Percent Auto 73.5 % (45-73); Platelet Count 393 X10*3/uL (160-400); Red Blood Count 4.11 X10*6/uL (4.60-5.80); Red Cell Distribution Width 12.7 % (11.0-16.0)
[2023-09-01 22:36] LABS: Alanine Aminotransferase 143 U/L (0-40); Albumin Level 4.1 g/dL (3.5-5.0); Alkaline Phosphatase 113 U/L (39-117); Anion Gap 14 (12-20); Aspartate Amino Transferase 95 U/L (5-37); Bilirubin Total 0.6 mg/dL (0.0-1.0); Blood Urea Nitrogen 17 mg/dL (9-16); Calcium 9.8 mg/dL (8.4-10.2); Carbon Dioxide 27 mmol/L (22-29); Chloride 104 mmol/L (96-108); Creatinine Clr Calc Pharmacy 163.4; Estimated Glomerular Filt Rate > 60; Glucose Random 78 mg/dL (60-115); Potassium 4.4 mmol/L (3.3-5.1); Sodium 141 mmol/L (135-145); Total Protein 8.4 g/dL (6.5-8.0)
--- NOTE | 2023-09-01 22:45 | PHA.MEDREC ---
Pharmacy Consult ? Medication Reconciliation Pharmacy has completed the medication reconciliation. Patient just discharge yesterday 08/31/23, med rec done by discharge summary. Methadone verification will need to be confirm by RN if patient went to clinic on 09/01/23, patient did receive methadone 70 mg on 08/31/23 @ 0913 prior to discharge. Jemima Marcum, PharmD
[2023-09-01 22:53] LABS: Appearance Urine Clear; Color Urine Dark Yellow; Glucose Urine UA Negative (Negative); Leukocyte Esterase Urine Negative (Negative); Nitrite Urine Negative (Negative); PH 6.5 (5.0-9.0); Specific Gravity - Urine >= 1.030 (1.005-1.025); Urine Blood Negative (Negative); Urine Ketones 15 mg/dL (Negative); Urine Protein Trace mg/dL (Neg-Trace)
[2023-09-01 22:56] LABS: Amphetamine Screen Urine Not Detected (Not Detect); Barbiturates, Urine Not Detected (Not Detect); Benzodiazepines Screen Urine POSITIVE (Not Detect); Cannabinoid Screen Urine Not Detected (Not Detect); Cocaine Screen Urine POSITIVE (Not Detect); Fentanyl, urine POSITIVE (Not Detect); Opiate Screen Urine POSITIVE (Not Detect); Phencyclidine Screen Urine Not Detected (Not Detect)
[2023-09-01 23:07] LABS: Ethanol < 10 mg/dL
--- NOTE | 2023-09-01 23:47 | ED.GENADULT ---
HPI - General Adult General Chief complaint: Psychiatric Symptoms Stated complaint: Here to see CARE team, SI Time Seen by Provider: 09/01/23 23:29 History of Present Illness HPI narrative: The patient is a 38-year-old male who says that he was discharged from a psychiatric unit at this hospital 2 days ago. He says that at the time of discharge she was planning on staying with his sister. He says that since leaving the hospital he felt more depressed and suicidal. He says that he spent some time sitting on the railroad tracks trying to build up the courage to throw himself in front of a train. He also says that he started using drugs to numb himself or possibly kill himself. He says that he used heroin, alcohol, and cocaine. He says he injected the heroin and cocaine. He says that his sister was worried that he seemed depressed. Apparently she contacted his disaster recovery specialist. They decided that the patient should return to the hospital and they drove him here. No fever, sweats, chills. No nausea vomiting. Related Data Home Medications Medication Instructions Recorded Confirmed nicotine (polacrilex) 4 mg gum 4 mg PO Q2H PRN Nicotine Cravings 04/02/23 09/01/23 methadone 10 mg/mL oral 70 mg PO DAILY 04/03/23 08/27/23 concentrate (Methadone Intensol) Previous Rx's Medication Instructions Recorded nicotine 21 mg/24 hr daily 21 mg transdermal DAILY PRN 03/04/23 transdermal patch smoking cessation 28 days #28 ea albuterol sulfate 90 mcg/actuation 2 puff inhalation Q4H PRN 08/31/23 aerosol inhaler Shortness Of Breath Or Wheezing 30 days #1 inhaler buspirone 15 mg tablet 15 mg PO TID Anxiety 30 days #08/31/23 tabs chlorpromazine 50 mg tablet 50 mg PO BID PRN Anxiety 30 days 08/31/23 #60 tabs gabapentin 600 mg tablet 600 mg PO TID Anxiety 30 days #90 08/31/23 tabs lamotrigine 25 mg tablet 50 mg (2 x 25 mg) PO DAILY 30 days 08/31/23 #60 tabs lurasidone 60 mg tablet 60 mg PO DAILY 30 days #30 tabs 08/31/23 melatonin 3 mg tablet 6 mg (2 x 3 mg) PO BEDTIME 30 days 08/31/23 #60 tabs mirtazapine 15 mg tablet 15 mg PO BEDTIME 30 days #30 tabs 08/31/23 omeprazole 20 mg capsule,delayed 20 mg PO DAILY 30 days #30 caps 08/31/23 release prazosin 1 mg capsule 3 mg (3 x 1 mg) PO BEDTIME 30 days 08/31/23 #90 caps triamcinolone acetonide 0.025 % 1 appl topical BID 30 days #15 08/31/23 topical cream grams Allergies Allergy/AdvReac Type Severity Reaction Status Date / Time amoxicillin [AMOXICILLIN] Allergy Unknown HIVES Verified 08/18/23 01:25 Review of Systems Review of Systems: Yes all other systems are reviewed and are negative [facility] Past Medical History Medical History Polysubstance use disorder Hypertension Bipolar 2 disorder, major depressive episode TBI (traumatic brain injury) PTSD (post-traumatic stress disorder) Surgical History History of mandibular surgery Family History Family History Other No pertinent family history Social History Social History Household Members: None Household Members Other:: homeless Housing: Other Housing Other:: homeless Do you presently have visiting nurse or other home services: No Alcohol intake: current Alcohol intake frequency: holidays/special occasions only Alcohol type: beer and hard liquor Patient Tobacco Use Status: Current everyday Tobacco user Tobacco use type: Cigarette Cigarette Packs Per Day: 2 Cigarettes Per Day: 30 Years Smoked: 20 e-Cigarette/Vaping Use: Never Used Second Hand Smoke Exposure: Yes Substance Use Type: Crack/Cocaine Advance Directives: No Advance Directives Information Provided: No service: No Sexual orientation: Straight/Heterosexual Physical Exam ED Vital Signs: Vital Signs - 24 hr 09/01/23 21:26 Temperature 98.4 F Pulse Rate 96 Respiratory Rate 18 Blood Pressure 113/44 L Pulse Oximetry 96 Oxygen Delivery Method Room Air BMI result Body Mass Index 34.9 Const Other: The patient is an unkempt 38-year-old male who was awake and alert. He seems tearful. He does not seem in distress otherwise. Orientation/consciousness: patient oriented x3 [facility] Head: Yes normal to inspection Face and sinus: Yes normal facial exam Mouth: Normal oral and palatal mucosa present Eyes General: appearance normal, both eyes and all related structures Periorbital: periorbital findings normal Eyelids: Yes eyelids normal Conjunctivae: conjunctivae normal Neck Other: No neck swelling. Moving his neck easily. Resp Effort & Inspection: normal respiratory effort Auscultation: clear to auscultation bilaterally Cardio Rate: regular rate Rhythm: regular rhythm GI Other: Soft nontender Skin General skin exam: no rashes or lesions noted Neuro General: patient oriented x3, no focal motor deficits and CN's II-XI intact bilaterally Extrem General: Yes no pedal edema Medical Decision Making Medical Decision Making [facility] Narrative: The patient is a 38-year-old male with a history of depression and substance use disorder. He has a history of previous psychiatric hospitalizations. He was recently discharged from this hospital psychiatric floor. He says since he left the hospital he once again significantly depressed and feeling suicidal. He says that since leaving the hospital he used cocaine, alcohol, and heroin. The patient currently seems tearful but cooperative and comfortable being here in the emergency room. The patient seems medically stable for evaluation and disposition per the crisis team. Lab Data 09/01/23 22:04 09/01/23 22:04 Labs: Lab Results 09/01/23 09/01/23 Range/Units 22:04 22:34 WBC 10.0 (4.8-10.8) X10*3/uL RBC 4.11 L (4.60-5.80) X10*6/uL Hgb 12.6 L (14.0-18.0) g/dl Hct 36.8 L (42.0-52.0) % MCV 89.5 (80.0-98.0) fL MCH 30.7 (27.0-33.0) pg MCHC 34.2 (31.0-36.0) g/dl RDW 12.7 (11.0-16.0) % Plt Count 393 (160-400) X10*3/uL MPV 9.2 L (9.4-12.4) fL Immature Gran % (Auto) 0.3 (0.0-0.4) % Neut % (Auto) 73.5 H (45-73) % Lymph % (Auto) 18.2 L (20-40) % Morton % (Auto) 6.8 (2-11) % Eos % (Auto) 0.9 (0-4) % Baso % (Auto) 0.3 (0-2) % Lymph # (Auto) 1.8 (1.2-4.9) X10*3/uL [place] # (Auto) 0.7 (0.1-1.2) X10*3/uL Eos # (Auto) 0.1 (0.0-0.4) X10*3/uL Baso # (Auto) 0.0 (0.0-0.2) X10*3/uL Abs Immat Gran (auto) 0.03 (0.00-0.03) X10*3/uL Absolute Neuts (auto) 7.4 (2.0-8.3) x10*3/uL Absolute Nucleated RBC 0.000 (0.0-0.012) X10*3/uL Nucleated RBC % (auto) 0.0 (0.0-0.2) /100WBC Sodium 141 (135-145) mmol/L Potassium 4.4 (3.3-5.1) mmol/L Chloride 104 (96-108) mmol/L Carbon Dioxide 27 (22-29) mmol/L Anion Gap 14 (12-20) BUN 17 H (9-16) mg/dL Creatinine 0.80 (0.5-1.4) mg/dL Estim Creat Clear Calc 163.4 Estimated GFR > 60 Random Glucose 78 (60-115) mg/dL Calcium 9.8 (8.4-10.2) mg/dL Total Bilirubin 0.6 (0.0-1.0) mg/dL AST 95 H (5-37) U/L ALT 143 H (0-40) U/L Alkaline Phosphatase 113 (39-117) U/L Total Protein 8.4 H (6.5-8.0) g/dL Albumin 4.1 (3.5-5.0) g/dL Urine Color Dark Yellow Urine Appearance Clear Urine pH 6.5 (5.0-9.0) Ur Specific [place] >= 1.030 H (1.005-1.025) Urine Protein Trace (Neg-Trace) mg/dL Urine Glucose (UA) Negative (Negative) mg/dL Urine Ketones 15 (Negative) mg/dL Urine Blood Negative (Negative) Urine Nitrite Negative (Negative) Ur Leukocyte Esterase Negative (Negative) Urine Opiates Screen POSITIVE H (Not Detect) Urine Fentanyl Screen POSITIVE H (Not Detect) Ur Barbiturates Screen Not Detected (Not Detect) Ur Phencyclidine Scrn Not Detected (Not Detect) Ur Amphetamines Screen Not Detected (Not Detect) U Benzodiazepines Scrn POSITIVE H (Not Detect) Urine Cocaine Screen POSITIVE H (Not Detect) U Marijuana (THC) Screen Not Detected (Not Detect) Ethyl Alcohol < 10 mg/dL Discharge Plan Discharge Clinical Impression: Depression, Polysubstance use disorder Patient Disposition: Still a Patient Prescriptions: No Action nicotine 21 mg/24 hr Patch 24 Hour 21 mg transdermal DAILY PRN (Reason: smoking cessation) 28 Days Qty: 28 0RF Rx Instructions: remove at bedtime lamotrigine 25 mg Tablet 50 mg PO DAILY 30 Days Qty: 60 0RF triamcinolone acetonide 0.025 % Cream 1 appl topical BID 30 Days Qty: 15 0RF Protocol: Apply to: Apply to: affected areas of the face gabapentin 600 mg tablet 600 mg PO TID 30 Days Qty: 90 0RF prazosin 1 mg capsule 3 mg PO BEDTIME 30 Days Qty: 90 0RF melatonin 3 mg Tablet 6 mg PO BEDTIME 30 Days Qty: 60 0RF omeprazole 20 mg capsule,delayed release(DR/EC) 20 mg PO DAILY 30 Days Qty: 30 0RF mirtazapine 15 mg Tablet 15 mg PO BEDTIME 30 Days Qty: 30 0RF albuterol sulfate 90 mcg/actuation HFA aerosol inhaler 2 puff inhalation Q4H PRN (Reason: Shortness Of Breath Or Wheezing) 30 Days Qty: 1 0RF chlorpromazine 50 mg Tablet 50 mg PO BID PRN (Reason: Anxiety) 30 Days Qty: 60 0RF buspirone 15 mg Tablet 15 mg PO TID 30 Days Qty: 90 0RF lurasidone 60 mg Tablet 60 mg PO DAILY 30 Days Qty: 30 0RF Rx Instructions: must administer with food (at least 350 calories) nicotine (polacrilex) 4 mg gum 4 mg PO Q2H PRN (Reason: Nicotine Cravings) methadone [Methadone Intensol] 10 mg/mL Concentrate 70 mg PO DAILY Interventions: [place]-Suicide Risk Severity Scale Last Done: 09/01/23 21:31
[2023-09-02 01:50] VITALS: BP 133/80; PULSE 81; RESP 18; TEMP 36.2; O2SAT 95
[2023-09-02] MEDS: Mirtazapine 15 MG TABLET PO (03:39)
[2023-09-02] MEDS: Prazosin HCL 1 MG CAPSULE 3 MG PO (03:39)
[2023-09-02] MEDS: Gabapentin 600 MG TABLET PO ×3 (03:39→15:25)
[2023-09-02 06:12] VITALS: BP 106/55; PULSE 78; RESP 18; TEMP 36.2; O2SAT 95
[2023-09-02] MEDS: busPIRone HCl 5 MG TABLET 15 MG PO ×2 (09:33→15:27)
[2023-09-02] MEDS: Omeprazole 20 MG CAPSULE.DR PO (09:34)
[2023-09-02] MEDS: lamoTRIgine 25 MG TABLET 50 MG PO (09:34)
[2023-09-02] MEDS: methADONE HCl 20 MG/2 ML ORAL.CONC 70 MG PO (09:34)
[2023-09-02 11:25] LABS: IDNOW Serial# 08D9AD1C
[2023-09-02 11:26] LABS: COVID-19 Test Negative (Negative)
--- NOTE | 2023-09-02 12:19 | MHC.CARE ---
Patient evaluated by the CARE Team and determined to need dual diagnosis treatment, referrals sent to facilities. ED provider Dr. Sheridan updated and in agreement.
--- NOTE | 2023-09-02 13:42 | MHC.CARE ---
Pt accepted to [facility] Address- [address] [place] [address] Accepting Doctor- Dr. Aileen HUGHES
--- NOTE | 2023-09-02 19:06 | PC.NURSE ---
multiple attempts to call ([phone]) and give rn to rn unsuccessful, no answer, CARE team gave another number but it was a fax machine, unable to give report
== END 2023-09-02 19:45 ==
PROVIDERS: Emergency Provider Emergency Medicine
DX: F32.A Depression, unspecified (principal); F11.90 Opioid use, unspecified, uncomplicated; F14.90 Cocaine use, unspecified, uncomplicated; F10.90 Alcohol use, unspecified, uncomplicated; I10 Essential (primary) hypertension; Z87.820 Personal history of traumatic brain injury; Z11.52 Encounter for screening for COVID-19
CPT/HCPCS: 36415; 80053; 80307; 81003; 85025; 87635; 93005; 99285; S9485

== ENCOUNTER → 2023-09-01 21:32 | Outpatient (BNV) | payer MEDICAID, SELFPAY | PROVIDERS: Emergency Provider Emergency Medicine; Visit Provider Internal Medicine | DX: I45.89 Other specified conduction disorders (principal) | CPT/HCPCS: 93010 ==

== ENCOUNTER 2023-11-04 03:36 | Inpatient (IN) | payer MEDICAID, SELFPAY ==
[2023-11-04] VITALS (9 sets, daily range): BP systolic 100–143; BP diastolic 58–77; PULSE 83–115; RESP 11–96; TEMP 36.9–37.8; O2SAT 92–97; BMI 40.1
--- NOTE | ~2023-11-04 | US_ITS ---
EXAMINATION: US VENOUS WITH DOPPLER UPPER EXTREMITY, LEFT CLINICAL INFORMATION: Left upper extremity swelling. COMPARISON: None available. TECHNIQUE: Ultrasound of the upper extremity is performed using compression sonography and color and pulse Doppler flow with assessment of augmentation of flow. There is also imaging and Doppler assessment of the jugular and subclavian veins. Spectral analysis with color-flow imaging is performed. FINDINGS: Respiratory variation, normal compression, and augmented flow are noted throughout the upper extremity including the axillary, brachial, basilic, and radial and ulnar veins. There is normal flow in the internal jugular and subclavian veins. There is no visible deep or superficial thrombophlebitis. There is echogenic thrombus within the distal segment of the cephalic vein with lack of compressibility. There is echogenic thrombus surrounding the intravenous access in the antecubital fossa. If the patient's symptoms progress, a followup ultrasound in 5 -7 days might be of value to exclude proximal propagation from a nonvisualized distal arm vein. US/US venous duplex UE LT IMPRESSION: Nonocclusive thrombus involving the distal segment of the cephalic vein as well as surrounding the intravenous access in the antecubital fossa. This may represent superficial thrombophlebitis. No evidence of deep venous thrombosis in the left upper extremity.
--- NOTE | ~2023-11-04 | CT_ITS ---
EXAMINATION: CT FOREARM WITHOUT CONTRAST, LEFT CT HAND WITHOUT CONTRAST, LEFT CLINICAL INFORMATION: Crepitus and swelling along the dorsal aspect of the forearm and hand. COMPARISON: None available. TECHNIQUE: Contiguous axial CT images of the left forearm and left hand were obtained without contrast. Multiplanar reformats were provided and reviewed. This CT examination was performed using dose optimization techniques as appropriate, variously including the following: *Automated exposure control *Adjustment of mA and/or kV according to patient size (this includes techniques or standardized protocols for targeted exams where dose is matched to indication/reason for exam; i.e. extremities or head) *Use of iterative reconstruction technique. DOSE: 276 mGy-cm FINDINGS: Dorsal skin thickening and subcutaneous edema along the hand extending into the base of the phalanges as well as proximally along the forearm to the level of the distal radius and ulna. No associated skin thickening. No clear soft tissue ulceration. No soft tissue emphysema. Findings are consistent with cellulitis. No adjacent cortical erosion or periosteal reaction to suggest acute osteomyelitis. Early osteomyelitis may be occult on CT examination. No acute fracture or dislocation. No concerning lytic or blastic osseous lesion. No joint space narrowing or marginal osteophytes. Normal carpal alignment. The visualized flexor and extensor muscles and tendons are intact. No transverse tendon tear or tendon retraction. Evaluation significantly limited on CT examination. No abnormal soft tissue mass or organized fluid collection. CT/CT forearm LT wo IV con IMPRESSION: 1. Dorsal skin thickening and subcutaneous edema along the hand extending into the base of the phalanges as well as proximally along the forearm to the level of the distal radius and ulna. Findings are consistent with cellulitis. No clear soft tissue ulceration. No soft tissue emphysema. 2. No adjacent cortical erosion or periosteal reaction to suggest acute osteomyelitis. Early osteomyelitis may be occult on CT examination.
--- NOTE | 2023-11-04 04:30 | PC.NURSE ---
PT biba found in the [place]. PT reports other homeless people in the [facility] called EMS because I was sleeping PT reports drinking 6 beers and taking 6mg of klonopin with no intent to OD although he does endorse SI . Labs drawn, EKG done, poison control called: chem panel, cbc, lfts, Tylenol, salicylate, and supportive care until back to baseline. If first ekg is normal then no need to repeat as klonopin doesn't cause changes to EKG. Will call back for lab results. PT changed over, belongings secured by security, 1:1 sitter at bedside. Capnography initiated. Plan of care ongoing
[2023-11-04 04:31] LABS: MANUAL DIFF FLAG NO
[2023-11-04 04:32] LABS: Basophils Percent Auto 0.1 % (0-2); Eosinophils Percent Auto 0.4 % (0-4); Hematocrit 34.9 % (42.0-52.0); Imm Gran Abs Auto 0.02 X10*3/uL (0.00-0.03); Imm Gran Pct Auto 0.3 % (0.0-0.4); Lymphocytes Absolute Auto 0.5 X10*3/uL (1.2-4.9); Lymphocytes Percent Auto 6.5 % (20-40); Mean Corpuscular HGB Conc 34.4 g/dl (31.0-36.0); Mean Corpuscular Hemoglobin 30.2 pg (27.0-33.0); Mean Corpuscular Volume 87.7 fL (80.0-98.0); Mean Platelet Volume 8.9 fL (9.4-12.4); Monocytes Absolute Auto 0.5 X10*3/uL (0.1-1.2); Monocytes Percent Auto 5.9 % (2-11); Neutrophils Absolute Auto 6.9 x10*3/uL (2.0-8.3); Neutrophils Percent Auto 86.8 % (45-73); Platelet Count 211 X10*3/uL (160-400); Red Blood Count 3.98 X10*6/uL (4.60-5.80); Red Cell Distribution Width 12.8 % (11.0-16.0)
--- NOTE | 2023-11-04 04:46 | ECG_ITS ---
Test Reason : OVERDOSE Blood Pressure : / mmHG Vent. Rate : 114 BPM Atrial Rate : 114 BPM P-R Int : 122 ms QRS Dur : 092 ms QT Int : 326 ms P-R-T Axes : 065 031 022 degrees QTc Int : 449 ms Sinus tachycardia Otherwise normal ECG When compared with ECG of 01-SEP-2023 21:53, No significant change was found Referred By: Generic ED Physician Electronically Signed By:AMARI WORTHY
[2023-11-04 04:49] LABS: COVID-19 Test Negative (Negative); IDNOW Serial# 6674DD1D
[2023-11-04 04:50] LABS: Alanine Aminotransferase 68 U/L (0-40); Alkaline Phosphatase 91 U/L (39-117); Anion Gap 18 (12-20); Aspartate Amino Transferase 97 U/L (5-37); Bilirubin Total 1.1 mg/dL (0.0-1.0); Blood Urea Nitrogen 21 mg/dL (9-16); Calcium 9.1 mg/dL (8.4-10.2); Carbon Dioxide 19 mmol/L (22-29); Chloride 104 mmol/L (96-108); Creatinine Clr Calc Pharmacy 171.5; Estimated Glomerular Filt Rate > 60; Ethanol < 10 mg/dL; Glucose Random 81 mg/dL (60-115); Potassium 4.2 mmol/L (3.3-5.1); Sodium 137 mmol/L (135-145); Total Protein 7.9 g/dL (6.5-8.0)
[2023-11-04 04:54] LABS: Acetaminophen LAB < 3 mcg/mL (<30); Salicylate < 5.0 mg/dL (15-30)
--- NOTE | 2023-11-04 05:02 | MHC.EDTECH ---
This tech assumed care of this Pt. Pt changed over by security and all Pt belongings were locked up into [employer]. Pt Placed on a library monitor. EKG completed and handed to a provider. BLoodwork drawn and sent to the Lab for processing
--- NOTE | 2023-11-04 06:07 | ED.PSYCH ---
HPI - Psych General Chief Complaint: Psychiatric Symptoms Stated Complaint: si etoh Time Seen by Provider: 11/04/23 04:14 Source: patient Mode of arrival: ambulatory History of Present Illness HPI Narrative: 38-year-old male arrives via EMS where he was found outside in the [place] suspected to have alcohol, heroin and reports he took 6 mg of Klonopin and is endorsing suicidal ideation. Patient also has complaints of bilateral foot pain after having walked for 3 days. Related Data Home Medications Medication Instructions Recorded Confirmed nicotine (polacrilex) 4 mg gum 4 mg PO Q2H PRN Nicotine Cravings 04/02/23 09/01/23 methadone 10 mg/mL oral 70 mg PO DAILY 04/03/23 09/02/23 concentrate (Methadone Intensol) Previous Rx's Medication Instructions Recorded nicotine 21 mg/24 hr daily 21 mg transdermal DAILY PRN 03/04/23 transdermal patch smoking cessation 28 days #28 ea albuterol sulfate 90 mcg/actuation 2 puff inhalation Q4H PRN 08/31/23 aerosol inhaler Shortness Of Breath Or Wheezing 30 days #1 inhaler buspirone 15 mg tablet 15 mg PO TID Anxiety 30 days #90 08/31/23 tabs chlorpromazine 50 mg tablet 50 mg PO BID PRN Anxiety 30 days 08/31/23 #60 tabs gabapentin 600 mg tablet 600 mg PO TID Anxiety 30 days #90 08/31/23 tabs lamotrigine 25 mg tablet 50 mg (2 x 25 mg) PO DAILY 30 days 08/31/23 #60 tabs lurasidone 60 mg tablet 60 mg PO DAILY 30 days #30 tabs 08/31/23 melatonin 3 mg tablet 6 mg (2 x 3 mg) PO BEDTIME 30 days 08/31/23 #60 tabs mirtazapine 15 mg tablet 15 mg PO BEDTIME 30 days #30 tabs 08/31/23 omeprazole 20 mg capsule,delayed 20 mg PO DAILY 30 days #30 caps 08/31/23 release prazosin 1 mg capsule 3 mg (3 x 1 mg) PO BEDTIME 30 days 08/31/23 #90 caps triamcinolone acetonide 0.025 % 1 appl topical BID 30 days #15 08/31/23 topical cream grams Allergies Allergy/AdvReac Type Severity Reaction Status Date / Time amoxicillin [AMOXICILLIN] Allergy Unknown HIVES Verified 08/18/23 01:25 Review of Systems Review of Systems: Pertinent positives and negatives as stated in [facility] Past Medical History Source: nursing notes reviewed Medical History Polysubstance use disorder Hypertension Bipolar 2 disorder, major depressive episode TBI (traumatic brain injury) PTSD (post-traumatic stress disorder) Surgical History History of mandibular surgery Family History Family History Other No pertinent family history Social History Social History Household Members: None Household Members Other:: homeless Housing: Other Housing Other:: homeless Do you presently have visiting nurse or other home services: No Alcohol intake: current Alcohol intake frequency: 3 or more drinks per day Alcohol type: beer and hard liquor Patient Tobacco Use Status: Current everyday Tobacco user Tobacco use type: Cigarette Cigarette Packs Per Day: 2 Cigarettes Per Day: 30 Years Smoked: 20 Smoked in Last 30 Days: No e-Cigarette/Vaping Use: Never Used Second Hand Smoke Exposure: Yes Use of substances other than those prescribed or required for medical reasons: Yes Substance Use Type: Crack/Cocaine and Heroin Advance Directives: No Advance Directives Information Provided: Yes service: No Sexual orientation: Straight/Heterosexual Physical Exam Vital Signs: Vital Signs: Last Vital Signs Temp 98.5 F 11/04/23 07:24 Pulse 104 H 11/04/23 07:24 Resp 11 L 11/04/23 07:24 BP 116/68 11/04/23 07:24 Pulse Ox 96 11/04/23 07:24 O2 Del Method Nasal Cannula 11/04/23 07:24 O2 Flow Rate 2 11/04/23 07:24 BMI result Body Mass Index 40.1 VITAL SIGNS: Reviewed. GENERAL: Well developed, well nourished, in no acute distress. HEAD: Normocephalic/atraumatic EYES: PERRLA, EOMI EARS: Ext canals without abnormality NOSE: Nares patent bilateral OROPHARYNX: no oral lesions noted, posterior pharynx clear NECK: Supple, no adenopathy LUNGS: Normal breath sounds. No adventitious sounds or accessory muscle use. SpO2<97> nasal cannula with capnography at 2 L CARDIOVASCULAR: Regular rate and rhythm without noted murmurs ABDOMEN: Soft, non-tender, non-distended with bowel sounds. MUSCULOSKELETAL: No tenderness, deformities, or effusions noted on gross inspection. EXTREMITIES: No cyanosis, clubbing or edema. SKIN: Inspection of the skin reveals no rashes NEUROLOGIC: Drowsy but easily aroused and oriented x 3. Strength and sensation to light touch were grossly intact x 4, cranial nerves 2-12 are grossly intact. Medical Decision Making Medical Decision Making [facility] Narrative: 38-year-old male with history and clinical presentation, DDX: Polysubstance use, decompensated bipolar 2, suicidal ideation Contacted poison control who has no further recommendations after EKG is noted to be without QRS/QTC/QTC derangements. I reviewed all investigations and hematologic indices are chronically stable without leukocytosis/normocytic anemia and no thrombocytopenia. Chemistries indices do not demonstrate an CARLOS or electrolyte derangement. CPK is elevated at 18 50, patient remains drowsy but arousable and on 2 L via capnography. Salicylate and acetaminophen are undetectable as well as ETOH. Signed out to Dr Arvin HUMPHREY/IV Access with IVF Differential Diagnosis Differential Diagnoses: The differential diagnosis associated with the presentation includes Please see the discussion above Admission/Observation Consideration of admission/observation: Escalation of care including admission/observation considered Please see the discussion above Lab Data [facility] Lab Attestation statement: I reviewed the patient's lab results. Please see the discussion above 11/04/23 04:26 11/04/23 04:26 Labs: Lab Results 11/04/23 Range/Units 04:26 WBC 8.0 (4.8-10.8) X10*3/uL RBC 3.98 L (4.60-5.80) X10*6/uL Hgb 12.0 L (14.0-18.0) g/dl Hct 34.9 L (42.0-52.0) % MCV 87.7 (80.0-98.0) fL MCH 30.2 (27.0-33.0) pg MCHC 34.4 (31.0-36.0) g/dl RDW 12.8 (11.0-16.0) % Plt Count 211 D (160-400) X10*3/uL MPV 8.9 L (9.4-12.4) fL Immature Gran % (Auto) 0.3 (0.0-0.4) % Neut % (Auto) 86.8 H (45-73) % Lymph % (Auto) 6.5 L (20-40) % [place] % (Auto) 5.9 (2-11) % Eos % (Auto) 0.4 (0-4) % Baso % (Auto) 0.1 (0-2) % Lymph # (Auto) 0.5 L (1.2-4.9) X10*3/uL [place] # (Auto) 0.5 (0.1-1.2) X10*3/uL Eos # (Auto) 0.0 (0.0-0.4) X10*3/uL Baso # (Auto) 0.0 (0.0-0.2) X10*3/uL Abs Immat Gran (auto) 0.02 (0.00-0.03) X10*3/uL Absolute Neuts (auto) 6.9 (2.0-8.3) x10*3/uL Absolute Nucleated RBC 0.000 (0.0-0.012) X10*3/uL Nucleated RBC % (auto) 0.0 (0.0-0.2) /100WBC Sodium 137 (135-145) mmol/L Potassium 4.2 (3.3-5.1) mmol/L Chloride 104 (96-108) mmol/L Carbon Dioxide 19 L (22-29) mmol/L Anion Gap 18 (12-20) BUN 21 H (9-16) mg/dL Creatinine 0.82 (0.5-1.4) mg/dL Estim Creat Clear Calc 171.5 Estimated GFR > 60 Random Glucose 81 (60-115) mg/dL Calcium 9.1 D (8.4-10.2) mg/dL Total Bilirubin 1.1 H (0.0-1.0) mg/dL AST 97 H (5-37) U/L ALT 68 H (0-40) U/L Alkaline Phosphatase 91 (39-117) U/L Total Creatine Kinase 1850 H (38-174) U/L Total Protein 7.9 (6.5-8.0) g/dL Albumin 4.0 (3.5-5.0) g/dL Salicylates < 5.0 L (15-30) mg/dL Acetaminophen < 3 (<30) mcg/mL Ethyl Alcohol < 10 mg/dL COVID-19 (JC) Negative (Negative) COVID-19 Clin Com See Note Independent Interpretation I performed an independent interpretation of an: EKG Interpretation: Sinus tachycardia, HR-114, no STEMI, TN/QRS/QTC is within normal limits. Discharge Plan Discharge Clinical Impression: Polysubstance use disorder, Depression, Suicidal ideation, Rhabdomyolysis Patient Disposition: Still a Patient Prescriptions: No Action nicotine 21 mg/24 hr Patch 24 Hour 21 mg transdermal DAILY PRN (Reason: smoking cessation) 28 Days Qty: 28 0RF Rx Instructions: remove at bedtime lamotrigine 25 mg Tablet 50 mg PO DAILY 30 Days Qty: 60 0RF triamcinolone acetonide 0.025 % Cream 1 appl topical BID 30 Days Qty: 15 0RF Protocol: Apply to: Apply to: affected areas of the face gabapentin 600 mg tablet 600 mg PO TID 30 Days Qty: 90 0RF prazosin 1 mg capsule 3 mg PO BEDTIME 30 Days Qty: 90 0RF melatonin 3 mg Tablet 6 mg PO BEDTIME 30 Days Qty: 60 0RF omeprazole 20 mg capsule,delayed release(DR/EC) 20 mg PO DAILY 30 Days Qty: 30 0RF mirtazapine 15 mg Tablet 15 mg PO BEDTIME 30 Days Qty: 30 0RF albuterol sulfate 90 mcg/actuation HFA aerosol inhaler 2 puff inhalation Q4H PRN (Reason: Shortness Of Breath Or Wheezing) 30 Days Qty: 1 0RF chlorpromazine 50 mg Tablet 50 mg PO BID PRN (Reason: Anxiety) 30 Days Qty: 60 0RF buspirone 15 mg Tablet 15 mg PO TID 30 Days Qty: 90 0RF lurasidone 60 mg Tablet 60 mg PO DAILY 30 Days Qty: 30 0RF Rx Instructions: must administer with food (at least 350 calories) nicotine (polacrilex) 4 mg gum 4 mg PO Q2H PRN (Reason: Nicotine Cravings) methadone [Methadone Intensol] 10 mg/mL Concentrate 70 mg PO DAILY Interventions: [place]-Suicide Risk Severity Scale Last Done: 11/04/23 04:00
[2023-11-04] MEDS: 0.9 % Sodium Chloride 1,000 ML 999 ML IV ×2 (08:02→09:18)
[2023-11-04] MEDS: 0.9 % Sodium Chloride 1,000 ML 200 ML IVCONT (11:59)
[2023-11-04 13:22] LABS: Amphetamine Screen Urine Not Detected (Not Detect); Appearance Urine Clear; Barbiturates, Urine Not Detected (Not Detect); Benzodiazepines Screen Urine POSITIVE (Not Detect); Cannabinoid Screen Urine Not Detected (Not Detect); Cocaine Screen Urine POSITIVE (Not Detect); Color Urine Dark Yellow; Fentanyl, urine POSITIVE (Not Detect); Glucose Urine UA Negative (Negative); Leukocyte Esterase Urine Negative (Negative); Nitrite Urine Negative (Negative); Opiate Screen Urine POSITIVE (Not Detect); Phencyclidine Screen Urine Not Detected (Not Detect); Specific Gravity - Urine >= 1.030 (1.005-1.025); Urine Blood Negative (Negative); Urine Ketones 15 mg/dL (Negative); Urine Protein Trace mg/dL (Neg-Trace)
--- NOTE | 2023-11-04 18:39 | PC.NURSE ---
pt resting quietly with 1:[address] for safety, pt a&o x4, no SI at this time currently eating dinner, watching television, answering questions appropriately, no apparent distress at this time
--- NOTE | 2023-11-04 20:34 | PC.NURSE ---
Updated Roxie from poison control.
--- NOTE | 2023-11-04 21:56 | PC.NURSE ---
PT is refusing nuclear monitoring technician and capnography. VS stable, a & o x 4.
--- NOTE | 2023-11-04 22:51 | PC.NURSE ---
PT reports he takes Methadone 60mg daily, last dosed 2 days ago at [facility] while in detox. Left message on voice mail for return call for last dose.
[2023-11-05] VITALS (8 sets, daily range): BP systolic 105–151; BP diastolic 48–82; PULSE 60–89; RESP 16–18; TEMP 36.2–37.1; O2SAT 92–98
--- NOTE | 2023-11-05 01:47 | PC.NURSE ---
Left second message for [facility] in [place], [place] for last dose of Methadone information. PT reports he takes 60mg daily. PT is resting, appears to be in no apparent distress. Currently refusing any medical monitoring due to it interfering with his sleep. Arousable, a & o x 4 when awake. Does not appear to be in nor complain of any acute withdrawal.
--- NOTE | 2023-11-05 02:35 | PC.NURSE ---
Addendum entered by Skylar Sanchez RN 11/05/23 06:42: MD aware regarding pt's noncompliance with cardiac monitoring/capnography Original Note: PT continues to refuse cardiac monitoring and capnography. A & O x 4 while awake, requests fluids and ice cream while awake. PT in no apprent distress @ this time.
--- NOTE | 2023-11-05 06:20 | PC.NURSE ---
Attempted to reach [facility] in [place], [place] [phone] to obtain last dose of Methadone, mailbox full. PT currently laying in bed resting, VSS, denies current SI/HI, sitter at bedside for safety.
[2023-11-05] MEDS: 0.9 % Sodium Chloride 1,000 ML 999 ML IV ×2 (07:21→08:32)
--- NOTE | 2023-11-05 08:08 | PC.NURSE ---
ns bolus infusing, alert, speech clear, sitter at bedside, pleasant, does c/o leg soreness from walking for 3 days , nad, will repeat cpk after 2 l ns
--- NOTE | 2023-11-05 09:45 | HE.PHANOTE ---
Received methadone verification form, dose is 60 mg last dose on 11/01/23
[2023-11-05] MEDS: methADONE HCl 20 MG/2 ML ORAL.CONC 60 MG PO (09:57)
--- NOTE | 2023-11-05 10:03 | PC.NURSE ---
pt has b/l hand swelling/edema and pitting, ? crepitus provider aware, new orders placed, labs being drawn now, pt alert, nad, states soreness in hand , ct pending methadone given as ordered
[2023-11-05 10:25] LABS: MANUAL DIFF FLAG NO
[2023-11-05 10:27] LABS: Basophils Percent Auto 0.3 % (0-2); Eosinophils Absolute Auto 0.1 X10*3/uL (0.0-0.4); Eosinophils Percent Auto 3.1 % (0-4); Hematocrit 32.8 % (42.0-52.0); Hematocrit 33.3 % (42.0-52.0); Hemoglobin 11.3 g/dl (14.0-18.0); Imm Gran Abs Auto 0.01 X10*3/uL (0.00-0.03); Imm Gran Pct Auto 0.2 % (0.0-0.4); Imm Gran Pct Auto 0.3 % (0.0-0.4); Lymphocytes Percent Auto 25.3 % (20-40); Lymphocytes Percent Auto 25.6 % (20-40); Mean Corpuscular HGB Conc 33.9 g/dl (31.0-36.0); Mean Corpuscular HGB Conc 34.5 g/dl (31.0-36.0); Mean Corpuscular Hemoglobin 30.6 pg (27.0-33.0); Mean Corpuscular Volume 88.9 fL (80.0-98.0); Mean Corpuscular Volume 90.2 fL (80.0-98.0); Mean Platelet Volume 9.5 fL (9.4-12.4); Mean Platelet Volume 9.7 fL (9.4-12.4); Monocytes Absolute Auto 0.5 X10*3/uL (0.1-1.2); Monocytes Percent Auto 12.9 % (2-11); Monocytes Percent Auto 13.2 % (2-11); Neutrophils Absolute Auto 2.3 x10*3/uL (2.0-8.3); Neutrophils Percent Auto 58.1 % (45-73); Platelet Count 185 X10*3/uL (160-400); Platelet Count 200 X10*3/uL (160-400); Red Blood Count 3.69 X10*6/uL (4.60-5.80); Red Cell Distribution Width 12.8 % (11.0-16.0); Red Cell Distribution Width 12.9 % (11.0-16.0); White Blood Count 3.9 X10*3/uL (4.8-10.8)
[2023-11-05 10:40] LABS: Alanine Aminotransferase 73 U/L (0-40); Albumin Level 3.1 g/dL (3.5-5.0); Alkaline Phosphatase 76 U/L (39-117); Anion Gap 11 (12-20); Aspartate Amino Transferase 81 U/L (5-37); Bilirubin Total 0.5 mg/dL (0.0-1.0); Blood Urea Nitrogen 9 mg/dL (9-16); Calcium 8.6 mg/dL (8.4-10.2); Carbon Dioxide 23 mmol/L (22-29); Chloride 110 mmol/L (96-108); Creatinine Clr Calc Pharmacy 213.1; Estimated Glomerular Filt Rate > 60; Glucose Random 110 mg/dL (60-115); Magnesium 1.9 mg/dL (1.6-2.6); Potassium 4.7 mmol/L (3.3-5.1); Sodium 139 mmol/L (135-145); Total Protein 6.6 g/dL (6.5-8.0)
[2023-11-05 10:41] LABS: Alanine Aminotransferase 71 U/L (0-40); Albumin Level 3.2 g/dL (3.5-5.0); Alkaline Phosphatase 78 U/L (39-117); Anion Gap 10 (12-20); Aspartate Amino Transferase 78 U/L (5-37); Bilirubin Total 0.5 mg/dL (0.0-1.0); Blood Urea Nitrogen 9 mg/dL (9-16); Calcium 8.3 mg/dL (8.4-10.2); Carbon Dioxide 24 mmol/L (22-29); Chloride 110 mmol/L (96-108); Creatinine Clr Calc Pharmacy 219.7; Estimated Glomerular Filt Rate > 60; Glucose Random 112 mg/dL (60-115); Potassium 4.4 mmol/L (3.3-5.1); Sodium 140 mmol/L (135-145); Total Protein 6.4 g/dL (6.5-8.0)
[2023-11-05] MEDS: cefTRIAXone sodium 1 GM in 0.9 % Sodium Chloride 50 ML IV (13:28)
--- NOTE | 2023-11-05 14:05 | P.CONOP_ITS ---
History of Present Illness HPI Consult date: 11/05/23 Chief complaint: si etoh Narrative: 38-year-old male arrives via EMS where he was found outside in the [place] suspected to have alcohol, heroin and reports he took 6 mg of Klonopin and is endorsing suicidal ideation. Patient also has complaints of bilateral foot pain after having walked for 3 days. [facility] Past Medical History Medical History Polysubstance use disorder Hypertension Bipolar 2 disorder, major depressive episode TBI (traumatic brain injury) PTSD (post-traumatic stress disorder) Family History Family History Other No pertinent family history Surgical History Surgical History History of mandibular surgery Social History Social History Household Members: None Household Members Other:: homeless Housing: Other Housing Other:: homeless Do you presently have visiting nurse or other home services: No Alcohol intake: current Alcohol intake frequency: 3 or more drinks per day Alcohol type: beer and hard liquor Patient Tobacco Use Status: Current everyday Tobacco user Tobacco use type: Cigarette Cigarette Packs Per Day: 2 Cigarettes Per Day: 30 Years Smoked: 20 Smoked in Last 30 Days: No e-Cigarette/Vaping Use: Never Used Second Hand Smoke Exposure: Yes Use of substances other than those prescribed or required for medical reasons: Yes Substance Use Type: Crack/Cocaine and Heroin Advance Directives: No Advance Directives Information Provided: Yes Healthcare Proxy: No Guardian: No service: No Sexual orientation: Straight/Heterosexual Meds Allergies Allergy/AdvReac Type Severity Reaction Status Date / Time amoxicillin [AMOXICILLIN] Allergy Unknown HIVES Verified 08/18/23 01:25 Active Medications: Current Medications Vancomycin HCl (Vancomycin/Ns) 2,000 mg in 500 mls @ 250 mls/hr IV ONCE ONE Stop: 11/05/23 15:17 Home Medications Medication Instructions Recorded Confirmed Last Taken Type nicotine (polacrilex) 4 mg gum 4 mg PO Q2H PRN Nicotine Cravings 04/02/23 09/01/23 Unknown History methadone 10 mg/mL oral 70 mg PO DAILY 04/03/23 09/02/23 08/31/23 09:13 History concentrate (Methadone Intensol) Physical Exam 2 Vital Signs: Vital Signs: Last Vital Signs Temp 98.1 F 11/05/23 12:06 Pulse 78 11/05/23 12:06 Resp 17 11/05/23 12:06 BP 128/68 11/05/23 12:06 Pulse Ox 98 11/05/23 12:06 O2 Del Method Room Air 11/05/23 06:19 O2 Flow Rate 2 11/04/23 11:09 BMI result Body Mass Index 40.1 Extrem: Other: left hand moderate edema. Able to make a full fist, abduct, adduct, finger cross, extend without difficulty. No tenderness to palpation over the flexor tendons. No abscess visualized or palpated. Capillary refill is brisk. Results Labs 11/05/23 10:18 11/05/23 10:18 Labs: Abnormal lab results 11/05/23 11/05/23 11/05/23 Range/Units 10:18 10:18 10:18 WBC 4.0 L 3.9 L (4.8-10.8) X10*3/uL RBC 3.69 L 3.69 L (4.60-5.80) X10*6/uL Hgb 11.3 L (14.0-18.0) g/dl Hct (42.0-52.0) % [place] % (Auto) (2-11) % Lymph # (Auto) (1.2-4.9) X10*3/uL Chloride (96-108) mmol/L Anion Gap (12-20) Calcium (8.4-10.2) mg/dL AST (5-37) U/L ALT (0-40) U/L Total Creatine Kinase (38-174) U/L Total Protein (6.5-8.0) g/dL Albumin (3.5-5.0) g/dL 11/05/23 11/05/23 11/05/23 Range/Units 10:18 10:18 10:18 WBC (4.8-10.8) X10*3/uL RBC (4.60-5.80) X10*6/uL Hgb 11.3 L (14.0-18.0) g/dl Hct 32.8 L 33.3 L (42.0-52.0) % [place] % (Auto) 13.2 H 12.9 H (2-11) % Lymph # (Auto) 1.0 L (1.2-4.9) X10*3/uL Chloride (96-108) mmol/L Anion Gap (12-20) Calcium (8.4-10.2) mg/dL AST (5-37) U/L ALT (0-40) U/L Total Creatine Kinase (38-174) U/L Total Protein (6.5-8.0) g/dL Albumin (3.5-5.0) g/dL 11/05/23 11/05/23 11/05/23 Range/Units 10:18 10:18 10:18 WBC (4.8-10.8) X10*3/uL RBC (4.60-5.80) X10*6/uL Hgb (14.0-18.0) g/dl Hct (42.0-52.0) % [place] % (Auto) (2-11) % Lymph # (Auto) 1.0 L (1.2-4.9) X10*3/uL Chloride 110 H 110 H (96-108) mmol/L Anion Gap 10 L 11 L (12-20) Calcium 8.3 L D (8.4-10.2) mg/dL AST 78 H (5-37) U/L ALT (0-40) U/L Total Creatine Kinase (38-174) U/L Total Protein (6.5-8.0) g/dL Albumin (3.5-5.0) g/dL 11/05/23 11/05/23 11/05/23 Range/Units 10:18 10:18 10:18 WBC (4.8-10.8) X10*3/uL RBC (4.60-5.80) X10*6/uL Hgb (14.0-18.0) g/dl Hct (42.0-52.0) % [place] % (Auto) (2-11) % Lymph # (Auto) (1.2-4.9) X10*3/uL Chloride (96-108) mmol/L Anion Gap (12-20) Calcium (8.4-10.2) mg/dL AST 81 H (5-37) U/L ALT 71 H 73 H (0-40) U/L Total Creatine Kinase 442 H (38-174) U/L Total Protein 6.4 L (6.5-8.0) g/dL Albumin 3.2 L 3.1 L (3.5-5.0) g/dL H & H 11/04/23 11/05/23 11/05/23 Range/Units 04:26 10:18 10:18 Hgb 12.0 L 11.3 L 11.3 L (14.0-18.0) g/dl Hct 34.9 L 32.8 L (42.0-52.0) % 11/05/23 Range/Units 10:18 Hgb (14.0-18.0) g/dl Hct 33.3 L (42.0-52.0) % All other labs normal. Assessment and Plan (1) Rhabdomyolysis: Status: Acute (2) Suicidal ideation: Status: Acute (3) Depression: Status: Acute (4) Polysubstance use disorder: Status: Acute (5) Bipolar 2 disorder, major depressive episode: Status: Acute (6) PTSD (post-traumatic stress disorder): Status: Chronic (7) TBI (traumatic brain injury): Status: Chronic (8) Opioid use disorder: Status: Acute (9) Cellulitis of left hand: Status: Acute Plan IV Abx for cellulitis Gentle ROM No abscess formation at this time No evidence of flexor tenosynovitis No additional orthopedic intervention needed at this time CT results: 1. Dorsal skin thickening and subcutaneous edema along the hand extending into the base of the phalanges as well as proximally along the forearm to the level of the distal radius and ulna. Findings are consistent with cellulitis. No clear soft tissue ulceration. No soft tissue emphysema. 2. No adjacent cortical erosion or periosteal reaction to suggest acute osteomyelitis. Early osteomyelitis may be occult on CT examination Procedures Date of Service Date of Service: 11/05/23
[2023-11-05] MEDS: vancomycin/NS 2,000 MG/500 ML PLAST..BAG 250 MG IV (14:17)
--- NOTE | 2023-11-05 14:38 | PM.IMHP ---
History of Present Illness Date of Service: 11/05/23 Chief Complaint: left hand pain 38M PMH etoh and hcv steatohepatitis, polysubstance dependence, bipolar, ptsd, tbi, presented with ams. Patient is currently homeless. EMS was called after he was noted to be unarousable. Patient reports that he was trying to commit suicide and drank alcohol and took Klonopin. Patient was monitored in emergency room and returned to baseline mental status. Then noted to have left hand pain and swelling. CT hand and consistent with cellulitis. Denies fevers or chills. Was also treated in the ER for mild rhabdomyolysis with CPK around 1000, improved with fluids. Review of Systems Review of Systems: Yes all other systems are reviewed and are negative [facility] Medical History Polysubstance use disorder Hypertension Bipolar 2 disorder, major depressive episode TBI (traumatic brain injury) PTSD (post-traumatic stress disorder) Family History Other No pertinent family history Surgical History History of mandibular surgery Social History Household Members: None Household Members Other:: homeless Housing: Other Housing Other:: homeless Do you presently have visiting nurse or other home services: No Alcohol intake: current Alcohol intake frequency: 3 or more drinks per day Alcohol type: beer and hard liquor Patient Tobacco Use Status: Current everyday Tobacco user Tobacco use type: Cigarette Cigarette Packs Per Day: 2 Cigarettes Per Day: 30 Years Smoked: 20 Smoked in Last 30 Days: No e-Cigarette/Vaping Use: Never Used Second Hand Smoke Exposure: Yes Use of substances other than those prescribed or required for medical reasons: Yes Substance Use Type: Crack/Cocaine and Heroin Advance Directives: No Advance Directives Information Provided: Yes Healthcare Proxy: No Guardian: No service: No Sexual orientation: Straight/Heterosexual Meds Allergies Allergy/AdvReac Type Severity Reaction Status Date / Time amoxicillin [AMOXICILLIN] Allergy Unknown HIVES Verified 08/18/23 01:25 Active Medications: Current Medications Vancomycin HCl (Vancomycin/Ns) 2,000 mg in 500 mls @ 250 mls/hr IV ONCE ONE Stop: 11/05/23 15:17 Last Admin: 11/05/23 14:17 Dose: 250 mls/hr Home Medications Medication Instructions Recorded Confirmed Last Taken Type nicotine (polacrilex) 4 mg gum 4 mg PO Q2H PRN Nicotine Cravings 04/02/23 09/01/23 Unknown History methadone 10 mg/mL oral 70 mg PO DAILY 04/03/23 09/02/23 08/31/23 09:13 History concentrate (Methadone Intensol) Physical Exam Vital Signs and Narrative: Vital Signs: Last Vital Signs Temp 98.1 F 11/05/23 12:06 Pulse 78 11/05/23 12:06 Resp 17 11/05/23 12:06 BP 128/68 11/05/23 12:06 Pulse Ox 98 11/05/23 12:06 O2 Del Method Room Air 11/05/23 06:19 O2 Flow Rate 2 11/04/23 11:09 BMI result Body Mass Index 40.1 General: AO X 3, no acute distress Resp: CTA bilateral, no accessory muscles used CVS: S1,S2,RRR GI: soft, non tender, non distended Neuro: motor grossly intact, alert Psych: appropriate affect, appropriate insight Results Labs 11/05/23 10:18 11/05/23 10:18 Labs: Laboratory Results - last 24 hr 11/05/23 11/05/23 11/05/23 10:18 10:18 10:18 MCV 88.9 90.2 MCH 30.6 30.6 MCHC 34.5 RDW Plt Count MPV Immature Gran % (Auto) Neut % (Auto) Lymph % (Auto) [place] % (Auto) Eos % (Auto) Baso % (Auto) Lymph # (Auto) [place] # (Auto) Eos # (Auto) Baso # (Auto) Abs Immat Gran (auto) Absolute Neuts (auto) Absolute Nucleated RBC Nucleated RBC % (auto) Anion Gap Estim Creat Clear Calc Estimated GFR Random Glucose Calcium Magnesium Total Bilirubin AST ALT Alkaline Phosphatase Total Creatine Kinase Total Protein Albumin 11/05/23 11/05/23 11/05/23 10:18 10:18 10:18 MCV MCH MCHC 33.9 RDW 12.9 12.8 Plt Count 200 185 MPV 9.5 Immature Gran % (Auto) Neut % (Auto) Lymph % (Auto) [place] % (Auto) Eos % (Auto) Baso % (Auto) Lymph # (Auto) [place] # (Auto) Eos # (Auto) Baso # (Auto) Abs Immat Gran (auto) Absolute Neuts (auto) Absolute Nucleated RBC Nucleated RBC % (auto) Anion Gap Estim Creat Clear Calc Estimated GFR Random Glucose Calcium Magnesium Total Bilirubin AST ALT Alkaline Phosphatase Total Creatine Kinase Total Protein Albumin 11/05/23 11/05/23 11/05/23 10:18 10:18 10:18 MCV MCH MCHC RDW Plt Count MPV 9.7 Immature Gran % (Auto) 0.2 0.3 Neut % (Auto) 58.0 58.1 Lymph % (Auto) 25.6 [place] % (Auto) Eos % (Auto) Baso % (Auto) Lymph # (Auto) [place] # (Auto) Eos # (Auto) Baso # (Auto) Abs Immat Gran (auto) Absolute Neuts (auto) Absolute Nucleated RBC Nucleated RBC % (auto) Anion Gap Estim Creat Clear Calc Estimated GFR Random Glucose Calcium Magnesium Total Bilirubin AST ALT Alkaline Phosphatase Total Creatine Kinase Total Protein Albumin 11/05/23 11/05/23 11/05/23 10:18 10:18 10:18 MCV MCH MCHC RDW Plt Count MPV Immature Gran % (Auto) Neut % (Auto) Lymph % (Auto) 25.3 [place] % (Auto) 13.2 H 12.9 H Eos % (Auto) 3.0 3.1 Baso % (Auto) 0.0 Lymph # (Auto) [place] # (Auto) Eos # (Auto) Baso # (Auto) Abs Immat Gran (auto) Absolute Neuts (auto) Absolute Nucleated RBC Nucleated RBC % (auto) Anion Gap Estim Creat Clear Calc Estimated GFR Random Glucose Calcium Magnesium Total Bilirubin AST ALT Alkaline Phosphatase Total Creatine Kinase Total Protein Albumin 11/05/23 11/05/23 11/05/23 10:18 10:18 10:18 MCV MCH MCHC RDW Plt Count MPV Immature Gran % (Auto) Neut % (Auto) Lymph % (Auto) [place] % (Auto) Eos % (Auto) Baso % (Auto) 0.3 Lymph # (Auto) 1.0 L 1.0 L [place] # (Auto) 0.5 0.5 Eos # (Auto) 0.1 Baso # (Auto) Abs Immat Gran (auto) Absolute Neuts (auto) Absolute Nucleated RBC Nucleated RBC % (auto) Anion Gap Estim Creat Clear Calc Estimated GFR Random Glucose Calcium Magnesium Total Bilirubin AST ALT Alkaline Phosphatase Total Creatine Kinase Total Protein Albumin 11/05/23 11/05/23 11/05/23 10:18 10:18 10:18 MCV MCH MCHC RDW Plt Count MPV Immature Gran % (Auto) Neut % (Auto) Lymph % (Auto) [place] % (Auto) Eos % (Auto) Baso % (Auto) Lymph # (Auto) [place] # (Auto) Eos # (Auto) 0.1 Baso # (Auto) 0.0 0.0 Abs Immat Gran (auto) 0.01 0.01 Absolute Neuts (auto) 2.3 Absolute Nucleated RBC Nucleated RBC % (auto) Anion Gap Estim Creat Clear Calc Estimated GFR Random Glucose Calcium Magnesium Total Bilirubin AST ALT Alkaline Phosphatase Total Creatine Kinase Total Protein Albumin 11/05/23 11/05/23 11/05/23 10:18 10:18 10:18 MCV MCH MCHC RDW Plt Count MPV Immature Gran % (Auto) Neut % (Auto) Lymph % (Auto) [place] % (Auto) Eos % (Auto) Baso % (Auto) Lymph # (Auto) [place] # (Auto) Eos # (Auto) Baso # (Auto) Abs Immat Gran (auto) Absolute Neuts (auto) 2.3 Absolute Nucleated RBC 0.000 0.000 Nucleated RBC % (auto) 0.0 0.0 Anion Gap 10 L Estim Creat Clear Calc Estimated GFR Random Glucose Calcium Magnesium Total Bilirubin AST ALT Alkaline Phosphatase Total Creatine Kinase Total Protein Albumin 11/05/23 11/05/23 11/05/23 10:18 10:18 10:18 MCV MCH MCHC RDW Plt Count MPV Immature Gran % (Auto) Neut % (Auto) Lymph % (Auto) [place] % (Auto) Eos % (Auto) Baso % (Auto) Lymph # (Auto) [place] # (Auto) Eos # (Auto) Baso # (Auto) Abs Immat Gran (auto) Absolute Neuts (auto) Absolute Nucleated RBC Nucleated RBC % (auto) Anion Gap 11 L Estim Creat Clear Calc 219.7 213.1 Estimated GFR > 60 > 60 Random Glucose 112 Calcium Magnesium Total Bilirubin AST ALT Alkaline Phosphatase Total Creatine Kinase Total Protein Albumin 11/05/23 11/05/23 11/05/23 10:18 10:18 10:18 MCV MCH MCHC RDW Plt Count MPV Immature Gran % (Auto) Neut % (Auto) Lymph % (Auto) [place] % (Auto) Eos % (Auto) Baso % (Auto) Lymph # (Auto) [place] # (Auto) Eos # (Auto) Baso # (Auto) Abs Immat Gran (auto) Absolute Neuts (auto) Absolute Nucleated RBC Nucleated RBC % (auto) Anion Gap Estim Creat Clear Calc Estimated GFR Random Glucose 110 Calcium 8.3 L D 8.6 Magnesium 1.9 Total Bilirubin 0.5 0.5 AST 78 H ALT Alkaline Phosphatase Total Creatine Kinase Total Protein Albumin 11/05/23 11/05/23 11/05/23 10:18 10:18 10:18 MCV MCH MCHC RDW Plt Count MPV Immature Gran % (Auto) Neut % (Auto) Lymph % (Auto) [place] % (Auto) Eos % (Auto) Baso % (Auto) Lymph # (Auto) [place] # (Auto) Eos # (Auto) Baso # (Auto) Abs Immat Gran (auto) Absolute Neuts (auto) Absolute Nucleated RBC Nucleated RBC % (auto) Anion Gap Estim Creat Clear Calc Estimated GFR Random Glucose Calcium Magnesium Total Bilirubin AST 81 H ALT 71 H 73 H Alkaline Phosphatase 78 76 Total Creatine Kinase 442 H Total Protein 6.4 L Albumin 11/05/23 11/05/23 10:18 10:18 MCV MCH MCHC RDW Plt Count MPV Immature Gran % (Auto) Neut % (Auto) Lymph % (Auto) [place] % (Auto) Eos % (Auto) Baso % (Auto) Lymph # (Auto) [place] # (Auto) Eos # (Auto) Baso # (Auto) Abs Immat Gran (auto) Absolute Neuts (auto) Absolute Nucleated RBC Nucleated RBC % (auto) Anion Gap Estim Creat Clear Calc Estimated GFR Random Glucose Calcium Magnesium Total Bilirubin AST ALT Alkaline Phosphatase Total Creatine Kinase Total Protein 6.6 Albumin 3.2 L 3.1 L Imaging Radiologist's Impressions: Impressions Venous Duplex 11/05/23 11:16 IMPRESSION: Nonocclusive thrombus involving the distal segment of the cephalic vein as well as surrounding the intravenous access in the antecubital fossa. This may represent superficial thrombophlebitis. No evidence of deep venous thrombosis in the left upper extremity. Forearm CT 11/05/23 11:33 IMPRESSION: 1. Dorsal skin thickening and subcutaneous edema along the hand extending into the base of the phalanges as well as proximally along the forearm to the level of the distal radius and ulna. Findings are consistent with cellulitis. No clear soft tissue ulceration. No soft tissue emphysema. 2. No adjacent cortical erosion or periosteal reaction to suggest acute osteomyelitis. Early osteomyelitis may be occult on CT examination. Hand CT 11/05/23 11:33 IMPRESSION: 1. Dorsal skin thickening and subcutaneous edema along the hand extending into the base of the phalanges as well as proximally along the forearm to the level of the distal radius and ulna. Findings are consistent with cellulitis. No clear soft tissue ulceration. No soft tissue emphysema. 2. No adjacent cortical erosion or periosteal reaction to suggest acute osteomyelitis. Early osteomyelitis may be occult on CT examination. Assessment and Plan (1) Cellulitis of left hand: Status: Acute Plan 38M PMH etoh and hcv steatohepatitis, polysubstance dependence, bipolar, ptsd, tbi, presented with ams Acute toxic metabolic encephalopathy due to intentional alcohol intoxication and benzodiazepine overdose Resolved Left hand cellulitis IV vancomycin, follow-up cultures, orthopedics following Alcohol dependence with withdrawal Phenobarbital protocol and CIWA Opiate dependence Methadone Alcoholic and HCV steatohepatitis Outpatient follow-up Morbid obesity Weight loss recommended Bipolar, PTSD with suicidal ideation Will need care team eval prior to discharge DVT prophylaxis with Lovenox Full Code Patient with significant and cellulitis requiring IV antibiotics due to high-risk area, also being treated for active withdrawal, therefore, expected require at least 2 midnights inpatient. Quality Stroke Does the patient have a stroke diagnosis?: No VTE Prior VTE?: No VTE Risk Level:: Medical - moderate - high VTE Device Contraindication: Treatment Not Indicated VTE Drug Contraindication: N/A - Med Ordered
--- NOTE | 2023-11-05 15:25 | PHA.MEDREC ---
Pharmacy Consult ? Medication Reconciliation Pharmacy has completed the medication reconciliation. Patient confirmed medications. Confirmed he is no longer on lamotrigine or lurasidone. Patient reported only using the nicotine gum and no the patches. When asked about the clonazepam he said is was the same thing on chlorpromazine and that he takes TID. Since he was most likely confused by the two names, I left clonazepam as TID PRN like the prescription states as chlorpromazine is TID [facility], KeanuD
[2023-11-05] MEDS: PHENobarbitaL sodium 130 MG/ML IM ONCE 248.3 MG IM (16:56)
[2023-11-05] MEDS: Enoxaparin Sodium 40 MG/0.4 ML SYRINGE SUBCUT (16:57)
--- NOTE | 2023-11-05 17:07 | PHA.PROG ---
Admission Date/Time: November 05, 2023 14:37 Indication: Cellulitis Weight in k.263 kg Adjusted body weight in K kg [place] body weight in K.6 kg Obesity Dosing Indication % IBW: 172% Serum Creatinine - Last 168 Hours 11/04/23 11/05/23 11/05/23 04:26 10:18 10:18 Creatinine 0.82 0.64 0.66 Estimated CrCl and GFR - Last 168 Hours 11/04/23 11/05/23 11/05/23 04:26 10:18 10:18 Estim Creat Clear Calc 171.5 219.7 213.1 Estimated GFR > 60 > 60 11/05/23 10:18 Estim Creat Clear Calc Estimated GFR > 60 Vancomycin Loading Dose: 2000 mg Current Vancomycin Dosing Regimen: 1250 mg Q8H Date and Time for next Vancomycin Level to be drawn: 11/05 @ 1200 Pharmacist Comments on Vancomycin Plan: patient received an adequate load dose in the ER on 11/04 @ 1417 maintenance dose vancomycin 1250 mg Q8h is scheduled to start 11/04 @ 2200. Predicted AUC 454 with a trough of 13.4 Patient is obese with a %IBW > 130%, therefore careful monitoring is required due to high volume of distribution Trough will be drawn prior to 4th dose Pharmacy will monitor renal function daily Jemima Marcum, [place] Vancomycin dosing will take advantage of [employer] as a clinical decision support tool that uses Bayesian modeling to calculate individual patient's pharmacokinetic parameters and forecast the patient's drug concentration time course with the target goal AUC 24 range of 400 - 600 mg/L/hr.
[2023-11-05] MEDS: ARIPiprazole 20 MG TABLET PO (20:13)
[2023-11-05] MEDS: Prazosin HCL 1 MG CAPSULE 3 MG PO (20:14)
[2023-11-05] MEDS: Gabapentin 300 MG CAPSULE 600 MG PO (20:14)
[2023-11-05] MEDS: busPIRone HCl 5 MG TABLET 15 MG PO (20:14)
[2023-11-05] MEDS: chlorproMAZINE HCl 25 MG TABLET 75 MG PO (20:14)
[2023-11-05] MEDS: Mirtazapine 15 MG TABLET PO (20:14)
--- NOTE | 2023-11-05 20:16 | PC.NURSE ---
late entry- this rn assumed care of pt. pt a&ox4, respirations even and unlabored. pt medicated per mar at this time, tolerated well with water. pt refused phenobarb dose at this time, aware. vss. denies si/hi, 1:1 sitter at bedside.
--- NOTE | 2023-11-05 21:42 | PC.NURSE ---
security at bedside to transport pt to room upstairs.
[2023-11-05] MEDS: vancomycin HCL 1,250 MG in 0.9 % Sodium Chloride 250 ML 166.67 MG IV (23:59)
[2023-11-06 00:04] VITALS: BMI 39.8
[2023-11-06 04:00] VITALS: BP 142/73; PULSE 78; RESP 18; TEMP 36.3; O2SAT 96
[2023-11-06 06:50] LABS: Hematocrit 32.5 % (42.0-52.0); Hemoglobin 11.3 g/dl (14.0-18.0); Mean Corpuscular HGB Conc 34.8 g/dl (31.0-36.0); Mean Corpuscular Hemoglobin 30.8 pg (27.0-33.0); Mean Corpuscular Volume 88.6 fL (80.0-98.0); Mean Platelet Volume 9.8 fL (9.4-12.4); Platelet Count 209 X10*3/uL (160-400); Red Blood Count 3.67 X10*6/uL (4.60-5.80); Red Cell Distribution Width 12.7 % (11.0-16.0); White Blood Count 4.2 X10*3/uL (4.8-10.8)
[2023-11-06 07:25] LABS: Blood Urea Nitrogen 9 mg/dL (9-16); Calcium 8.9 mg/dL (8.4-10.2); Creatinine Clr Calc Pharmacy 218.8; Estimated Glomerular Filt Rate > 60; Glucose Fasting 109 mg/dL (60-99)
[2023-11-06 07:27] LABS: Anion Gap 11 (12-20); Carbon Dioxide 24 mmol/L (22-29); Chloride 111 mmol/L (96-108); Potassium 3.5 mmol/L (3.3-5.1); Sodium 142 mmol/L (135-145)
[2023-11-06 07:29] LABS: HBS Num1 74.73 mIU/mL (0-7.99); HBc Num1 0.17 S/CO (0.00-0.79); HBsAGNum1 0.41 S/CO (0.00-0.99); HIV AB/AG Nonreactive (Nonreactive); HIV Num 1 0.07 S/CO (0.00-0.99); Hepatitis B Core Antibody Nonreactive (Nonreactive); Hepatitis B Surface Antigen Negative (Negative); ~Hepatitis B Surface Antibody REACTIVE (Nonreactive); ~Hepatitis C Antibody Reactive (Nonreactive)
[2023-11-06 07:40] VITALS: BP 133/80; PULSE 82; RESP 20; TEMP 36.6; O2SAT 97
[2023-11-06] MEDS: PHENobarbitaL 30 MG TABLET 60 MG PO ×2 (08:17→20:27)
[2023-11-06] MEDS: busPIRone HCl 5 MG TABLET 15 MG PO ×3 (08:17→20:26)
[2023-11-06] MEDS: Gabapentin 300 MG CAPSULE 600 MG PO ×3 (08:17→20:26)
[2023-11-06] MEDS: Omeprazole 20 MG CAPSULE.DR PO (08:17)
[2023-11-06] MEDS: chlorproMAZINE HCl 25 MG TABLET 75 MG PO ×3 (08:17→20:26)
[2023-11-06] MEDS: methADONE HCl 20 MG/2 ML ORAL.CONC 60 MG PO (08:18)
[2023-11-06] MEDS: Furosemide 40 MG TABLET PO ×2 (10:30→17:44)
--- NOTE | 2023-11-06 11:12 | P.PNIM_ITS ---
Subjective Subjective Date of Service: 11/06/23 Interval History: no hand pain, feeling some withdrawal Physical Exam 2 Vital Signs: Vital Signs: Last Vital Signs Temp 97.8 F 11/06/23 07:40 Pulse 82 11/06/23 07:40 Resp 20 11/06/23 07:40 BP 133/80 11/06/23 07:40 Pulse Ox 97 11/06/23 07:40 O2 Del Method Room Air 11/06/23 07:40 O2 Flow Rate 2 11/04/23 11:09 BMI result Body Mass Index 39.8 pedal edema, bilateral hand edema left greater than right some tremor Objective Data Active Medications Aripiprazole (Aripiprazole 20 Mg Tablet) 20 mg PO BEDTIME [facility] Last Admin: 11/05/23 20:13 Dose: 20 mg Documented By: GENESIS Buspirone HCl (Buspirone Hcl 5 Mg Tablet) 15 mg PO TID [facility] Last Admin: 11/06/23 08:17 Dose: 15 mg Documented By: JENNIFER Chlorpromazine HCl (Chlorpromazine Hcl 25 Mg Tablet) 75 mg PO TID [facility] Last Admin: 11/06/23 08:17 Dose: 75 mg Documented By: JENNIFER Enoxaparin Sodium (Enoxaparin Sodium 40 Mg/0.4 Ml Syringe) 40 mg SUBCUT Q24H [facility] Last Admin: 11/05/23 16:57 Dose: 40 mg Documented By: MAX Furosemide (Furosemide 40 Mg Tablet) 40 mg PO BID@0900,1800 [facility]; Protocol Last Admin: 11/06/23 10:30 Dose: 40 mg Documented By: JENNIFER Gabapentin (Gabapentin 300 Mg Capsule) 600 mg PO TID [facility] Last Admin: 11/06/23 08:17 Dose: 600 mg Documented By: JENNIFER Melatonin (Melatonin 3 Mg Tablet) 6 mg PO BEDTIME PRN PRN Reason: Insomnia Methadone HCl (Methadone Hcl 20 Mg/2 Ml Oral.Conc) 60 mg PO DAILY [facility] Last Admin: 11/06/23 08:18 Dose: 60 mg Documented By: JENNIFER Methocarbamol (Methocarbamol 750 Mg Tablet) 750 mg PO BID PRN PRN Reason: muscle spasm Mirtazapine (Mirtazapine 15 Mg Tablet) 15 mg PO BEDTIME [facility] Last Admin: 11/05/23 20:14 Dose: 15 mg Documented By: GENESIS Omeprazole (Omeprazole 20 Mg Capsule.) 20 mg PO DAILY@0630 [facility] Last Admin: 11/06/23 08:17 Dose: 20 mg Documented By: JENNIFER Pharmacy Consult (Consult Rx Etoh Phenob Im/Po) 1 each MISCELLANE ONCE PRN; Protocol PRN Reason: Consult order Phenobarbital (Phenobarbital 30 Mg Tablet) 60 mg PO BID [facility]; Protocol Stop: 11/07/23 21:01 Last Admin: 11/06/23 08:17 Dose: 60 mg Documented By: JENNIFER Phenobarbital (Phenobarbital 30 Mg Tablet) 30 mg PO BID [facility]; Protocol Stop: 11/09/23 21:01 Phenobarbital (Phenobarbital 30 Mg Tablet) 30 mg PO DAILY [facility]; Protocol Stop: 11/11/23 09:01 Prazosin HCl (Prazosin Hcl 1 Mg Capsule) 3 mg PO BEDTIME [facility]; Protocol Last Admin: 11/05/23 20:14 Dose: 3 mg Documented By: GENESIS Trazodone HCl (Trazodone Hcl 25 Mg Halftab) 75 mg PO BEDTIME PRN PRN Reason: Insomnia Labs 11/06/23 06:21 11/06/23 06:21 Labs: Laboratory Results - last 24 hr 11/06/23 06:21 MCV 88.6 MCH 30.8 MCHC 34.8 RDW 12.7 Plt Count 209 MPV 9.8 Absolute Nucleated RBC 0.000 Nucleated RBC % (auto) 0.0 Anion Gap 11 L Estim Creat Clear Calc 218.8 Estimated GFR > 60 Fasting Glucose 109 H Calcium 8.9 Hep Bs Antigen Negative Hep Bs Antibody REACTIVE Hep B Core Total Ab Nonreactive Hepatitis C Ab (EIA) Reactive H HIV 1&2 Ab/P24 Ag 4thGn Nonreactive Assessment and Plan (1) Rhabdomyolysis: Status: Acute Plan 38M PMH etoh and hcv steatohepatitis, polysubstance dependence, bipolar, ptsd, tbi, presented with ams Acute toxic metabolic encephalopathy due to intentional alcohol intoxication and benzodiazepine overdose Resolved Left hand swelling no erythema, no pain doubt cellulitis does have non occlusive thrombus in left cephalic, and some diffuse edema po lasix elevation prophylactic anticoagulation to prevent propagation Alcohol dependence with withdrawal Phenobarbital protocol and [facility] Opiate dependence Methadone Alcoholic and HCV steatohepatitis Outpatient follow-up Morbid obesity Weight loss recommended Bipolar, PTSD with suicidal ideation Will need care team eval prior to discharge DVT prophylaxis with Lovenox Full Code reason for continued hospitalization:ongoing withdrawal Quality Stroke Does the patient have a stroke diagnosis?: No VTE Prior VTE?: No VTE Risk Level:: Medical - moderate - high VTE Device Contraindication: Treatment Not Indicated VTE Drug Contraindication: N/A - Med Ordered
--- NOTE | 2023-11-06 11:51 | MHC.CM.PN ---
PT REPORTS HE HAS BEEN HOMELESS FOR THE PAST 1-2 YEARS HE REPORTS HE HAS BEEN IN SOME PROGRAMS DURING THAT TIME AND HOPES TO GET INTO ANOTHER ONE PT IS INDEPENDENT WITH SELF CARE AND HAS NO DME HE ALSO HAS NO PCP AND NO HCP AND DECLINES TO COMPLETE ONE AT THIS TIME PT IS AWARE HE WILL SEE THE CARE TEAM AND CM WILL FOLLOW FOR DC PLANNING DCP: [facility] VS [facility] PROGRAM VS [facility] TRANSPORT TBD BY DISPO
[2023-11-06] MEDS: Enoxaparin Sodium 40 MG/0.4 ML SYRINGE SUBCUT (15:22)
[2023-11-06 16:49] VITALS: BP 142/82; PULSE 93; RESP 18; TEMP 36.1; O2SAT 97
[2023-11-06 19:15] VITALS: BP 127/61; PULSE 80; RESP 18; TEMP 37.2; O2SAT 94
[2023-11-06] MEDS: Prazosin HCL 1 MG CAPSULE 3 MG PO (20:26)
[2023-11-06] MEDS: Mirtazapine 15 MG TABLET PO (20:26)
[2023-11-06] MEDS: ARIPiprazole 20 MG TABLET PO (20:27)
[2023-11-07] VITALS: BP 135/70; PULSE 86; RESP 20; TEMP 36.5; O2SAT 94
[2023-11-07 03:40] VITALS: BP 130/71; PULSE 79; RESP 20; TEMP 36.1; O2SAT 97
--- NOTE | 2023-11-07 06:16 | PC.NURSE ---
Pt continues to score high on [place] scale. His plan would be to overdose again. He endorses he would likely reach out for help. Constant mid level java developer maintained.
[2023-11-07] MEDS: Omeprazole 20 MG CAPSULE.DR PO (06:23)
[2023-11-07 08:00] VITALS: BP 136/89; PULSE 103; RESP 20; TEMP 36.2; O2SAT 96
[2023-11-07] MEDS: chlorproMAZINE HCl 25 MG TABLET 75 MG PO ×2 (08:48→15:23)
[2023-11-07] MEDS: Furosemide 40 MG TABLET PO (08:48)
[2023-11-07] MEDS: busPIRone HCl 5 MG TABLET 15 MG PO ×2 (08:48→15:22)
[2023-11-07] MEDS: Gabapentin 300 MG CAPSULE 600 MG PO ×2 (08:48→15:23)
[2023-11-07] MEDS: PHENobarbitaL 30 MG TABLET 60 MG PO (08:48)
[2023-11-07] MEDS: methADONE HCl 20 MG/2 ML ORAL.CONC 60 MG PO (08:50)
[2023-11-07] MEDS: Nicotine Polacrilex 2 MG GUM BUCCAL ×4 (08:52→15:23)
--- NOTE | 2023-11-07 10:34 | HO.PM.IMPN ---
Subjective Subjective Date of Service: 11/07/23 Interval History: much improved Physical Exam Vital Signs: Vital Signs: Last Vital Signs Temp 97.1 F 11/07/23 08:00 Pulse 103 H 11/07/23 08:00 Resp 20 11/07/23 08:00 BP 136/89 11/07/23 08:00 Pulse Ox 96 11/07/23 08:00 O2 Del Method Room Air 11/07/23 08:00 O2 Flow Rate 2 11/04/23 11:09 BMI result Body Mass Index 39.8 General: AO X 3, no acute distress Resp: CTA bilateral, no accessory muscles used CVS: S1,S2,RRR GI: soft, non tender, non distended Neuro: motor grossly intact, alert Psych: appropriate affect, appropriate insight Objective Data Active Medications Aripiprazole (Aripiprazole 20 Mg Tablet) 20 mg PO BEDTIME [facility] Last Admin: 11/06/23 20:27 Dose: 20 mg Documented By: LANCE Buspirone HCl (Buspirone Hcl 5 Mg Tablet) 15 mg PO TID [facility] Last Admin: 11/07/23 08:48 Dose: 15 mg Documented By: JENNIFER Chlorpromazine HCl (Chlorpromazine Hcl 25 Mg Tablet) 75 mg PO TID [facility] Last Admin: 11/07/23 08:48 Dose: 75 mg Documented By: JENNIFER Enoxaparin Sodium (Enoxaparin Sodium 40 Mg/0.4 Ml Syringe) 40 mg SUBCUT Q24H [facility] Last Admin: 11/06/23 15:22 Dose: 40 mg Documented By: JENNIFER Furosemide (Furosemide 40 Mg Tablet) 40 mg PO BID@0900,1800 [facility]; Protocol Last Admin: 11/07/23 08:48 Dose: 40 mg Documented By: JENNIFER Gabapentin (Gabapentin 300 Mg Capsule) 600 mg PO TID [facility] Last Admin: 11/07/23 08:48 Dose: 600 mg Documented By: JENNIFER Melatonin (Melatonin 3 Mg Tablet) 6 mg PO BEDTIME PRN PRN Reason: Insomnia Methadone HCl (Methadone Hcl 20 Mg/2 Ml Oral.Conc) 60 mg PO DAILY [facility] Last Admin: 11/07/23 08:50 Dose: 60 mg Documented By: JENNIFER Methocarbamol (Methocarbamol 750 Mg Tablet) 750 mg PO BID PRN PRN Reason: muscle spasm Mirtazapine (Mirtazapine 15 Mg Tablet) 15 mg PO BEDTIME [facility] Last Admin: 11/06/23 20:26 Dose: 15 mg Documented By: LANCE Nicotine Polacrilex (Nicotine Polacrilex 2 Mg Gum) 2 mg [place] Q2H PRN PRN Reason: Nicotine Cravings Last Admin: 11/07/23 08:52 Dose: 2 mg Documented By: JENNIFER Omeprazole (Omeprazole 20 Mg Capsule.) 20 mg PO DAILY@0630 [facility] Last Admin: 11/07/23 06:23 Dose: 20 mg Documented By: AMARILIS Pharmacy Consult (Consult Rx Etoh Phenob Im/Po) 1 each MISCELLANE ONCE PRN; Protocol PRN Reason: Consult order Phenobarbital (Phenobarbital 30 Mg Tablet) 60 mg PO BID [facility]; Protocol Stop: 11/07/23 21:01 Last Admin: 11/07/23 08:48 Dose: 60 mg Documented By: JENNIFER Phenobarbital (Phenobarbital 30 Mg Tablet) 30 mg PO BID [facility]; Protocol Stop: 11/09/23 21:01 Phenobarbital (Phenobarbital 30 Mg Tablet) 30 mg PO DAILY [facility]; Protocol Stop: 11/11/23 09:01 Prazosin HCl (Prazosin Hcl 1 Mg Capsule) 3 mg PO BEDTIME [facility]; Protocol Last Admin: 11/06/23 20:26 Dose: 3 mg Documented By: LANCE Trazodone HCl (Trazodone Hcl 25 Mg Halftab) 75 mg PO BEDTIME PRN PRN Reason: Insomnia Labs 11/06/23 06:21 11/06/23 06:21 Microbiology Microbiology Results: Microbiology 11/05/23 10:56 Blood Culture - Preliminary Blood - Venous No growth after 24 hours. 11/05/23 10:20 Blood Culture - Preliminary Blood - Venous No growth after 24 hours. Assessment and Plan (1) Rhabdomyolysis: Status: Acute Plan 38M PMH etoh and hcv steatohepatitis, polysubstance dependence, bipolar, ptsd, tbi, presented with ams Acute toxic metabolic encephalopathy due to intentional alcohol intoxication and benzodiazepine overdose Resolved Left hand swelling no erythema, no pain doubt cellulitis does have non occlusive thrombus in left cephalic, and some diffuse edema po lasix elevation prophylactic anticoagulation to prevent propagation, can change to xarelto 10mg daily for 45 days on discharge mostly resolved Alcohol dependence with withdrawal Phenobarbital protocol and CIWA, much improved Opiate dependence Methadone Alcoholic and HCV steatohepatitis Outpatient follow-up Morbid obesity Weight loss recommended Bipolar, PTSD with suicidal ideation medically cleared, care team appreciated, waiting for inpatient bed DVT prophylaxis with Lovenox Full Code reason for continued hospitalization:awaiting inpatient bed Quality Stroke Does the patient have a stroke diagnosis?: No VTE Prior VTE?: No VTE Risk Level:: Medical - moderate - high VTE Device Contraindication: Treatment Not Indicated VTE Drug Contraindication: N/A - Med Ordered
--- NOTE | 2023-11-07 10:39 | P.DS_ITS ---
DS: Providers Provider Date of Service: 11/07/23 Date of admission: 11/05/23 14:37 Primary care physician: [facility] Consults: 11/04/23 04:46 Consult to Care Team Stat Comment: Reason for consultation: SI/ OD 11/07/23 08:14 Consult to Care Team Routine Comment: Reason for consultation: medically cleared, SI DS: Diagnosis Discharge Diagnosis (1) Rhabdomyolysis: Status: Acute DS: Summary Hospital Course Hospital Course: from initial hpi: 38M PMH etoh and hcv steatohepatitis, polysubstance dependence, bipolar, ptsd, tbi, presented with ams. Patient is currently homeless. EMS was called after he was noted to be unarousable. Patient reports that he was trying to commit suicide and drank alcohol and took Klonopin. Patient was monitored in emergency room and returned to baseline mental status. Then noted to have left hand pain and swelling. CT hand and consistent with cellulitis. Denies fevers or chills. Was also treated in the ER for mild rhabdomyolysis with CPK around 1000, improved with fluids. hospital course: Patient was admitted for left hand swelling. Initially treated as cellulitis, however patient had no erythema or pain at the site making cellulitis unlikely. His venous Doppler did show a nonocclusive thrombus in the left cephalic vein. He was started on prophylactic dose anticoagulation and will continue Xarelto 10 mg daily for 45 days. Was also given some Lasix with resolution of edema. Course complicated by alcohol dependence with withdrawal. He was treated with phenobarbital and withdrawal resolved. For opiate dependence was continued on methadone. For alcoholic and HCV steatohepatitis he will follow up outpatient. For morbid obesity weight loss is recommended for bipolar and PTSD with suicidal ideation was seen by care team who recommended inpatient psychiatric admission. Time Attestation Discharge coordination time: Greater than 30 minutes Quality: Safe Use of Opioids Does Pt have an Active Cancer Diagnosis on the Problem List?: No Quality: Stroke Does the patient have a stroke diagnosis?: No Physical Exam Vital Signs: Vital Signs: Last Vital Signs Temp 97.1 F 11/07/23 08:00 Pulse 103 H 11/07/23 08:00 Resp 20 11/07/23 08:00 BP 136/89 11/07/23 08:00 Pulse Ox 96 11/07/23 08:00 O2 Del Method Room Air 11/07/23 08:00 O2 Flow Rate 2 02/29/24 11:09 BMI result Body Mass Index 39.8 General: AO X 3, no acute distress Resp: CTA bilateral, no accessory muscles used CVS: S1,S2,RRR GI: soft, non tender, non distended Neuro: motor grossly intact, alert Psych: appropriate affect, appropriate insight DS: Data Data Completed and Pending Labs on day of discharge: Preliminary micro results at discharge 11/05/23 10:56 Blood Culture - Preliminary Blood - Venous No growth after 24 hours. 11/05/23 10:20 Blood Culture - Preliminary Blood - Venous No growth after 24 hours. Discharge Plan Discharge Anticipated Discharge Date/Time: 11/07/23 10:35 Patient Disposition: Xfer Other Discharge Diagnosis: non occlucisve SVT, etoh withdrawal Referrals: [place] [Primary Care Provider] - 1 Week Discharge Medications: New furosemide [Lasix] 20 mg tablet 20 mg PO DAILY Qty: 30 0RF Xarelto 10 mg tablet 10 mg PO DAILY Qty: 45 0RF Rx Instructions: for 35 days Continued prazosin 1 mg capsule 3 mg PO BEDTIME 30 Days Qty: 90 0RF omeprazole 20 mg capsule,delayed release(DR/EC) 20 mg PO DAILY 30 Days Qty: 30 0RF mirtazapine 15 mg Tablet 15 mg PO BEDTIME 30 Days Qty: 30 0RF albuterol sulfate 90 mcg/actuation HFA aerosol inhaler 2 puff inhalation Q4H PRN (Reason: Shortness Of Breath Or Wheezing) 30 Days Qty: 1 0RF buspirone 15 mg Tablet 15 mg PO TID 30 Days Qty: 90 0RF methadone [Methadone Intensol] 10 mg/mL Concentrate 60 mg PO DAILY ketoconazole 2 % shampoo 1 appl topical 2XW trazodone 50 mg tablet 75 mg PO BEDTIME PRN (Reason: Insomnia) nicotine (polacrilex) 2 mg gum 2 mg PO Q2H PRN (Reason: Nicotine Cravings) clonazepam 0.5 mg tablet 0.5 mg PO TID PRN (Reason: anxiety) methocarbamol 750 mg tablet 750 mg PO BID PRN (Reason: muscle spasm) chlorpromazine 25 mg tablet 75 mg PO TID gabapentin 300 mg capsule 600 mg PO TID aripiprazole 20 mg tablet 20 mg PO BEDTIME melatonin 3 mg tablet 6 mg PO BEDTIME PRN (Reason: Insomnia) Discharge Orders: Discharge Order (Routine); Ordered 11/07/23 Ordered By: Hawk Ernst Diet: Advance to usual diet Activity on Discharge: As tolerated Stand Alone Forms: Patient Portal Discharge page Care Plan Goals: recovery Health Concerns: polysubstance dependence, SI, non occlusive thrombus Plan of Treatment: lasix, 45 days of xarelto 10mg daily, inpatient psychiatry Assessment: see above
[2023-11-07 12:00] VITALS: BP 122/57; PULSE 79; RESP 20; TEMP 36.3; O2SAT 95
--- NOTE | 2023-11-07 12:20 | MHC.CARE ---
patient seen by CARE team 3/3, patient is appropriate for inpatient psychiatric admission. No current male bed on psych units at [facility]. He has been presented to admissions should a bed open up w/in the next 24 hours.
--- NOTE | 2023-11-07 15:17 | MHC.CM.PN ---
PT WILL DC TO INPATIENT PSYCH ONCE A BED IS FOUND
[2023-11-07 15:33] VITALS: BP 122/76; PULSE 92; RESP 20; TEMP 36.6; O2SAT 94
[2023-11-07 15:37] VITALS: BP 122/69; PULSE 85; RESP 20; TEMP 36.1; O2SAT 96
== END 2023-11-07 15:41 | disposition other institution (70) | DRG 755 ==
LOC: HO.ED 07:46 → HO.EDOVER 11-05 14:41 → HO.IMC 11-05 20:12
PROVIDERS: Physician Assistant; Student in an Organized Health Care Education/Training Program; Admitting Provider Internal Medicine; Emergency Provider Emergency Medicine; Visit Provider Internal Medicine
DX: F43.10 Post-traumatic stress disorder, unspecified (principal); G92.8 Other toxic encephalopathy; M62.82 Rhabdomyolysis; I82.612 Acute embolism and thrombosis of superficial veins of left upper extremity; K70.0 Alcoholic fatty liver; T42.4X2A Poisoning by benzodiazepines, intentional self-harm, initial encounter; F10.239 Alcohol dependence with withdrawal, unspecified; E66.01 Morbid (severe) obesity due to excess calories; Z68.39 Body mass index [BMI] 39.0-39.9, adult; F11.20 Opioid dependence, uncomplicated; F19.20 Other psychoactive substance dependence, uncomplicated; Z20.822 Contact with and (suspected) exposure to COVID-19; Z23 Encounter for immunization; Z87.820 Personal history of traumatic brain injury; Z59.02 Unsheltered homelessness; Z79.899 Other long term (current) drug therapy
CPT/HCPCS: 36415; 73200; 80048; 80053; 80143; 80179; 80307; 81003; 82550; 83735; 85025; 85027; 86704; 86706; 86803; 87040; 87340; 87389; 87635; 93005; 93971; 99285; J0696; J1650; J2560; J3370; J3371; S9485

== ENCOUNTER → 2023-11-04 04:36 | Outpatient (BNV) | payer MEDICAID, SELFPAY | PROVIDERS: Emergency Provider Emergency Medicine; Visit Provider Physician Assistant | DX: M62.82 Rhabdomyolysis (principal); R45.851 Suicidal ideations; F32.A Depression, unspecified; F19.90 Other psychoactive substance use, unspecified, uncomplicated; F31.81 Bipolar II disorder; F43.10 Post-traumatic stress disorder, unspecified; S06.9X9A Unspecified intracranial injury with loss of consciousness of unspecified duration, initial encounter; F11.90 Opioid use, unspecified, uncomplicated; L03.114 Cellulitis of left upper limb | CPT/HCPCS: 99222 ==

== ENCOUNTER → 2023-11-04 04:46 | Outpatient (BNV) | payer MEDICAID, SELFPAY | PROVIDERS: Emergency Provider Emergency Medicine; Visit Provider Internal Medicine | DX: R00.0 Tachycardia, unspecified (principal) | CPT/HCPCS: 93010 ==

== ENCOUNTER → 2023-11-05 14:37 | Outpatient (BNV) | payer MEDICAID, SELFPAY | PROVIDERS: Admitting Provider Internal Medicine; Emergency Provider Emergency Medicine; Visit Provider Internal Medicine | DX: M62.82 Rhabdomyolysis (principal); F10.230 Alcohol dependence with withdrawal, uncomplicated | CPT/HCPCS: 99223; 99233; 99238 ==

== ENCOUNTER 2023-11-07 16:26 | Inpatient (IN) | payer OTHER, SELFPAY ==
--- NOTE | 2023-11-07 16:40 | PHA.MEDREC ---
Pharmacy Consult ? Medication Reconciliation Pharmacy has completed the medication reconciliation. MED REC AND METHADON VERIFICATION RECEIVED ON INPATIENT ACCOUNT. PT X-MONSE TO [facility]A
[2023-11-07 16:45] VITALS: BP 147/91; PULSE 92; RESP 18; TEMP 36.2; O2SAT 97
[2023-11-07] MEDS: Nicotine Polacrilex 2 MG GUM BUCCAL (17:32)
[2023-11-07] MEDS: Nicotine 21 MG PATCH.TD24 TRANSDERMA (17:32)
[2023-11-07] MEDS: QUEtiapine Fumarate 100 MG TABLET PO (17:32)
[2023-11-07 18:12] VITALS: BMI 34.4
--- NOTE | 2023-11-07 18:17 | PC.NURSE ---
Rey was admitted to [facility]3 at 1635 from [facility] on CV for treatment of MDD, PTSD and polysubstance abuse. Pt reports suicide attempt last week in the [place] by overdose on prescribed klonopin, heroin and alcohol. He was found by another homeless person and BIBA to [facility]. In ED he was diagnosed with a nonobstructive clot, cellulitis and 3+ pitting edema in his left arm. He was adm to [facility] where he was placed on phenobarb taper for etoh withdrawal, IV vanco and started on blood thinner. On admission to Rey is alert, fully oriented, pleasant and cooperative with admission process. Mood is depressed. Affect is anxious. He denies current ideation, plan or intent to harm himself or others. He reports he sometimes hears voices telling him to kill himself but not today. He is not currently overtly psychotic. Thought Process is organized. Speech is normal rate, rhythm and prosody. Appetite is poor with Recent 15 lb wt loss. Sleep is reportedly good with medications.Focus is fair. Rey reports remote longstanding history of polysubstance issues ( heroin and etoh) but reports a 2 month period of sobriety prior to last week's binge/ suicide attempt. He describes the stress of homelessness and financial stressors as precipitants. Rey denies current physical complaint although left forearm is noted to be red and swollen with 2+ pitting edema. Flu shot was administered. Nicotine replacement is ordered. Addiction consult placed. Rey is on q 15 min Safety Checks
[2023-11-07 20:15] VITALS: BP 129/75; PULSE 81; RESP 18; TEMP 36.3; O2SAT 95
[2023-11-07] MEDS: Gabapentin 300 MG CAPSULE 600 MG PO (20:26)
[2023-11-07] MEDS: Prazosin HCL 1 MG CAPSULE 3 MG PO (20:26)
[2023-11-07] MEDS: PHENobarbitaL 30 MG TABLET 60 MG PO (20:27)
[2023-11-07] MEDS: ARIPiprazole 20 MG TABLET PO (20:27)
[2023-11-07] MEDS: chlorproMAZINE HCl 25 MG TABLET 75 MG PO (20:27)
[2023-11-07] MEDS: busPIRone HCl 5 MG TABLET 15 MG PO (20:29)
[2023-11-07] MEDS: Mirtazapine 15 MG TABLET PO (20:29)
[2023-11-08] MEDS: Omeprazole 20 MG CAPSULE.DR PO (06:28)
[2023-11-08] MEDS: Nicotine Polacrilex 2 MG GUM BUCCAL ×9 (06:35→19:56)
[2023-11-08 07:10] VITALS: BP 137/83; PULSE 107; RESP 16; TEMP 35.9; O2SAT 97
[2023-11-08] MEDS: methADONE HCl 20 MG/2 ML ORAL.CONC 60 MG PO (08:07)
[2023-11-08] MEDS: chlorproMAZINE HCl 25 MG TABLET 75 MG PO ×3 (08:08→20:42)
[2023-11-08] MEDS: Nicotine 21 MG PATCH.TD24 TRANSDERMA (08:08)
[2023-11-08] MEDS: PHENobarbitaL 30 MG TABLET PO ×2 (08:08→20:42)
[2023-11-08] MEDS: Furosemide 20 MG TABLET PO (08:09)
[2023-11-08] MEDS: Gabapentin 300 MG CAPSULE 600 MG PO ×3 (08:09→20:41)
[2023-11-08] MEDS: Rivaroxaban 10 MG TABLET PO (08:09)
[2023-11-08] MEDS: busPIRone HCl 5 MG TABLET 15 MG PO ×3 (08:09→20:43)
[2023-11-08] MEDS: methocarbamoL 750 MG TABLET PO (08:15)
--- NOTE | 2023-11-08 09:01 | HO.PSYADMNOT ---
HPI Date of Service: 11/08/23 Chief Complaint: Suicide Attempt Sources of Information: patient interviewed, chart reviewed and crisis/core team assessment reviewed HPI Subjective Notes: Lerner Warning and Conditional Voluntary Narrative: Patient is a 38 year old male with hx of Bipolar d/o, PTSD, cocaine use d/o, opioid use d/o and TBI who presented to ER via EMS secondary to being found passed out in the [place]. Per crisis report, pt reported drinking six beers and taking 6mg of klonopin with no intent to OD but endorses SI. Pt was last admitted to on 08/31/23 secondary to SI with plan to OD but requested to discharge the same day. He reports being admitted psychiatrically to [facility] 3-4 weeks ago. 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 He then told drank six beers and told his friend to shoot me up with heroin) and took 6mg klonopin. Patient reported this was a suicide attempt because he wanted to smiling ; he reported auditory and visual hallucinations. Pt was recently at [facility] program in [place]. During admission assessment, pt presents calm and cooperative. He reports feeling anxious and depressed ; pt stated, I relapsed and was out drinking in the [place] with my friend. I passed out and he called 911. I didn't overdose on my klonopin. I don't know why they keep saying it was an overdose. I was worried about my girlfriend and if I'm going to be a good father . Pt reports he currently does not have outpatient psychiatric providers and had received his most recent scripts from [facility]. He reports 6 months of sobriety prior to this admission. Pt stated, I want to remain sober and get into a program for treatment . pt denies SI/HI/VH/AH. Past Psychiatric History: Hx of multiple psychiatric inpatient admissions. CSS, detox. SA: reported one prior via overdose Medical Evaluation Reviewed: Yes [facility] Medical History Polysubstance use disorder Hypertension Bipolar 2 disorder, major depressive episode TBI (traumatic brain injury) PTSD (post-traumatic stress disorder) Surgical History History of mandibular surgery Family History: Mental Health Substance use disorder Uncle suicided Social History: Born in [place]. Pt is an only child. 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 Substance History: utox positive for cocaine, fentanyl. He reports drinking ETOH and blacking out prior to admission. Trauma History: yes Diagnostics Vital Signs (24Hr): Vital Signs - 24 hr 11/07/23 16:45 11/07/23 20:15 11/08/23 07:10 Temperature 97.1 F 97.3 F 96.6 F L Pulse Rate 92 81 107 H Respiratory Rate 18 18 16 Blood Pressure 147/91 H 129/75 137/83 Pulse Oximetry 97 95 97 Oxygen Delivery Method Room Air Room Air Room Air BMI result Body Mass Index 34.4 Meds/Allergies Meds Home Medications Medication Instructions Recorded Confirmed Type methadone 10 mg/mL oral 60 mg PO DAILY 04/03/23 11/05/23 History concentrate (Methadone Intensol) aripiprazole 20 mg tablet 20 mg PO BEDTIME 11/05/23 11/05/23 History chlorpromazine 25 mg tablet 75 mg PO TID 11/05/23 11/05/23 History clonazepam 0.5 mg tablet 0.5 mg PO TID PRN anxiety 11/05/23 11/05/23 History gabapentin 300 mg capsule 600 mg PO TID 11/05/23 11/05/23 History ketoconazole 2 % shampoo 1 appl topical 2XW 11/05/23 11/05/23 History melatonin 3 mg tablet 6 mg PO BEDTIME PRN Insomnia 11/05/23 11/05/23 History methocarbamol 750 mg tablet 750 mg PO BID PRN muscle spasm 11/05/23 11/05/23 History nicotine (polacrilex) 2 mg gum 2 mg PO Q2H PRN Nicotine Cravings 11/05/23 11/05/23 History trazodone 50 mg tablet 75 mg PO BEDTIME PRN Insomnia 11/05/23 11/05/23 History Allergies Allergies Allergy/AdvReac Type Severity Reaction Status Date / Time amoxicillin [AMOXICILLIN] Allergy Unknown HIVES Verified 08/18/23 01:25 Mental Status Exam Mental Status Exam Narrative: Pt is alert and oriented; behavior is cooperative and calm; dressed in hospital attire; mood is described as depressed ; eye contact appropriate; Speech is normal rate, volume and prosody and not pressured; thought process is organized and goal directed; Thought content is on tx; denies SI/HI/VH/AH. Assessment & Plan Assessment & Plan (1) Bipolar 2 disorder, major depressive episode: Status: Acute Code(s): F31.81 - Bipolar II disorder (2) PTSD (post-traumatic stress disorder): Status: Chronic Code(s): F43.10 - Post-traumatic stress disorder, unspecified (3) TBI (traumatic brain injury): Status: Chronic Code(s): S06.9X9A - Unspecified intracranial injury with loss of consciousness of unspecified duration, initial encounter (4) Opioid use disorder: Status: Acute Code(s): F11.90 - Opioid use, unspecified, uncomplicated (5) Cocaine use disorder: Status: Acute Code(s): F14.10 - Cocaine abuse, uncomplicated Plan Patient is a 38 year old male with hx of Bipolar d/o, PTSD, cocaine use d/o, opioid use d/o and TBI who presented to ER via EMS secondary to being [facility] [place] [facility]. Plan: CV 15 minute safety checks Continue home medications Hold klonopin Possible referral to outpatient program discharge planning Patient educated on: diagnosis, medication risk/benefits, substance abuse and therapeutic strategies Informed Consent: understands Reason for continued inpatient stay Substantial Risk for: med/psych decompensation Statement Statement: I have reviewed the history and physical and performed a pertinent examination on my patient. No changes have occurred unless specified. If the History and Physical was not performed prior to admission, the Hospitalist's service will be consulted for completing the admission physical. Time Spent With Patient Time: Total time managing care of this patient today _60___ minutes.
[2023-11-08] MEDS: Lidocaine 4 % Patch ADH..PATCH 2 PATCH TRANSDERMA (12:23)
[2023-11-08] MEDS: Triamcinolone Acet 0.1 % Cream 15 GM TUBE 1 APPL TOPICAL ×2 (16:01→20:41)
[2023-11-08] MEDS: Albuterol Sulfate 90 MCG 8 GM INHALER 2 PUFF INHALE (19:56)
[2023-11-08 20:30] VITALS: BP 137/89; PULSE 108; RESP 18; TEMP 36.8; O2SAT 97
[2023-11-08] MEDS: Prazosin HCL 1 MG CAPSULE 3 MG PO (20:41)
[2023-11-08] MEDS: ARIPiprazole 20 MG TABLET PO (20:42)
[2023-11-08] MEDS: Mirtazapine 15 MG TABLET PO (20:42)
[2023-11-08] MEDS: traZODone HCL 25 MG HALFTAB 75 MG PO (21:08)
[2023-11-09 00:03] VITALS: BP 139/91; PULSE 115; O2SAT 95
[2023-11-09] MEDS: cloNIDine HCL 0.1 MG TABLET PO ×3 (00:05→20:11)
[2023-11-09] MEDS: Nicotine Polacrilex 2 MG GUM BUCCAL ×10 (00:05→20:11)
[2023-11-09] MEDS: Melatonin 3 MG TABLET 6 MG PO ×2 (00:05→20:17)
[2023-11-09 08:08] VITALS: BP 102/52; PULSE 72; RESP 18; TEMP 35.3; O2SAT 96
[2023-11-09] MEDS: busPIRone HCl 5 MG TABLET 15 MG PO ×3 (08:28→20:11)
[2023-11-09] MEDS: PHENobarbitaL 30 MG TABLET PO ×2 (08:29→20:09)
[2023-11-09] MEDS: Rivaroxaban 10 MG TABLET PO (08:31)
[2023-11-09] MEDS: chlorproMAZINE HCl 25 MG TABLET 75 MG PO ×3 (08:31→20:10)
[2023-11-09] MEDS: Omeprazole 20 MG CAPSULE.DR PO (08:31)
[2023-11-09] MEDS: Furosemide 20 MG TABLET PO (08:32)
[2023-11-09] MEDS: Gabapentin 300 MG CAPSULE 600 MG PO ×3 (08:32→20:09)
[2023-11-09] MEDS: methADONE HCl 20 MG/2 ML ORAL.CONC 60 MG PO (08:33)
[2023-11-09] MEDS: Nicotine 21 MG PATCH.TD24 TRANSDERMA (08:34)
--- NOTE | 2023-11-09 08:40 | HO.PSYCHPN ---
Subjective Subjective Date of Service: 11/09/23 Reason For Visit: Suicide Attempt Subjective Notes: Conditional Voluntary Interim History: Reviewed with Dr. Ellison. Pt reports feeling alright today; pt stated, I'm just anxious. I'm trying to go to groups. I'm hoping to get into respite . denies SI/HI/VH/AH. Pt reports sleeping well. social with peers. Medication Compliance: Yes Side effects from medications: No Attending Groups: Yes Review of Systems Constitutional: Reports as per HPI Eyes: Reports as per HPI Reports as per HPI Cardiovascular: Reports as per HPI Respiratory: Reports as per HPI Gastrointestinal: Reports as per HPI Genitourinary: Reports as per HPI Musculoskeletal: Reports as per HPI Skin/Breast: Reports as per HPI Reports as per HPI Psychiatric: Reports as per HPI Endocrine: Reports as per HPI Hematologic/Lymphatic: Reports as per HPI Allergic/Immunologic: Reports as per HPI Mental Status Exam Mental Status Exam Narrative: Pt is alert and oriented; behavior is cooperative and calm; dressed in hospital attire; mood is described as alright ; eye contact appropriate; Speech is normal rate, volume and prosody and not pressured; thought process is organized and goal directed; Thought content is on tx; denies SI/HI/VH/AH. Diagnostics Vital Signs (24Hr): Vital Signs - 24 hr 11/08/23 20:30 11/09/23 00:03 11/09/23 08:08 Temperature 98.2 F 95.6 F L Pulse Rate 108 H 115 H 72 Respiratory Rate 18 18 Blood Pressure 137/89 139/91 H 102/52 L Pulse Oximetry 97 95 96 Oxygen Delivery Method Room Air Room Air Room Air BMI result Body Mass Index 34.4 Medications Medications Current Medications Albuterol Sulfate (Albuterol Sulfate 90 Mcg 8 Gm Inhaler) 2 puff INHALE Q4H PRN PRN Reason: Wheezing Last Admin: 11/08/23 19:56 Dose: 2 puff Aripiprazole (Aripiprazole 20 Mg Tablet) 20 mg PO BEDTIME [facility] Last Admin: 11/08/23 20:42 Dose: 20 mg Buspirone HCl (Buspirone Hcl 5 Mg Tablet) 15 mg PO TID [facility] Last Admin: 11/09/23 08:28 Dose: 15 mg Chlorpromazine HCl (Chlorpromazine Hcl 25 Mg Tablet) 75 mg PO TID [facility] Last Admin: 11/09/23 08:31 Dose: 75 mg Clonidine HCl (Clonidine Hcl 0.1 Mg Tablet) 0.1 mg PO TID PRN; Protocol PRN Reason: Anxiety Last Admin: 11/09/23 00:05 Dose: 0.1 mg Furosemide (Furosemide 20 Mg Tablet) 20 mg PO DAILY PEDRO; Protocol Last Admin: 11/09/23 08:32 Dose: 20 mg Gabapentin (Gabapentin 300 Mg Capsule) 600 mg PO TID [facility] Last Admin: 11/09/23 08:32 Dose: 600 mg Lidocaine (Lidocaine 4 % Patch Adh..Patch) 2 patch TRANSDERMA DAILY [facility]; Protocol Last Admin: 11/08/23 12:23 Dose: 2 patch Lorazepam (Lorazepam 1 Mg Tablet) 1 mg PO Q6H PRN PRN Reason: anxiety/restlessness Stop: 11/10/23 09:00 Melatonin (Melatonin 3 Mg Tablet) 6 mg PO BEDTIME PRN PRN Reason: Insomnia Last Admin: 11/09/23 00:05 Dose: 6 mg Methadone HCl (Methadone Hcl 20 Mg/2 Ml Oral.Conc) 60 mg PO DAILY [facility] Last Admin: 11/09/23 08:33 Dose: 60 mg Methocarbamol (Methocarbamol 750 Mg Tablet) 750 mg PO BID PRN PRN Reason: muscle spasm Last Admin: 11/08/23 08:15 Dose: 750 mg Mirtazapine (Mirtazapine 15 Mg Tablet) 15 mg PO BEDTIME [facility] Last Admin: 11/08/23 20:42 Dose: 15 mg Nicotine (Nicotine 21 Mg Patch.Td24) 21 mg TRANSDERMA DAILY [facility] Last Admin: 11/09/23 08:34 Dose: 21 mg Nicotine Polacrilex (Nicotine Polacrilex 2 Mg Gum) 2 mg BUCCAL Q1H PRN PRN Reason: Nicotine Cravings Last Admin: 11/09/23 08:39 Dose: 2 mg Omeprazole (Omeprazole 20 Mg Capsule.Dr) 20 mg PO DAILY@0630 [facility] Last Admin: 11/09/23 08:31 Dose: 20 mg Phenobarbital (Phenobarbital 30 Mg Tablet) 30 mg PO BID [facility]; Protocol Stop: 11/09/23 21:01 Last Admin: 11/09/23 08:29 Dose: 30 mg Phenobarbital (Phenobarbital 30 Mg Tablet) 30 mg PO DAILY [facility]; Protocol Stop: 11/11/23 09:01 Prazosin HCl (Prazosin Hcl 1 Mg Capsule) 3 mg PO BEDTIME PEDRO; Protocol Last Admin: 11/08/23 20:41 Dose: 3 mg Rivaroxaban (Rivaroxaban 10 Mg Tablet) 10 mg PO DAILY PEDRO Last Admin: 11/09/23 08:31 Dose: 10 mg Trazodone HCl (Trazodone Hcl 25 Mg Halftab) 75 mg PO BEDTIME PRN PRN Reason: Insomnia Last Admin: 11/08/23 21:08 Dose: 75 mg Triamcinolone Acetonide (Triamcinolone Acet 0.1 % Cream 15 Gm Tube) 1 appl TOPICAL BID PEDRO; Protocol Last Admin: 11/08/23 20:41 Dose: 1 appl Allergies Allergies Allergy/AdvReac Type Severity Reaction Status Date / Time amoxicillin [AMOXICILLIN] Allergy Unknown HIVES Verified 08/18/23 01:25 Assessment & Plan Assessment & Plan (1) Bipolar 2 disorder, major depressive episode: Status: Acute Code(s): F31.81 - Bipolar II disorder (2) PTSD (post-traumatic stress disorder): Status: Chronic Code(s): F43.10 - Post-traumatic stress disorder, unspecified (3) TBI (traumatic brain injury): Status: Chronic Code(s): S06.9X9A - Unspecified intracranial injury with loss of consciousness of unspecified duration, initial encounter (4) Opioid use disorder: Status: Acute Code(s): F11.90 - Opioid use, unspecified, uncomplicated (5) Cocaine use disorder: Status: Acute Code(s): F14.10 - Cocaine abuse, uncomplicated Plan Patient is a 38 year old male with hx of Bipolar d/o, PTSD, cocaine use d/o, opioid use d/o and TBI who presented to ER via EMS secondary to being found passed out in the [facility]. Plan: CV 15 minute safety checks Continue home medications Hold annette Possible referral to outpatient program discharge planning 11/08: Pt reports feeling alright today; pt stated, I'm just anxious. I'm trying to go to groups. I'm hoping to get into respite . denies SI/HI/VH/AH. Pt reports sleeping well. social with peers. Continue current tx plan. Patient educated on: diagnosis, medication risk/benefits and therapeutic strategies Informed Consent: understands Reason for continued inpatient stay Substantial Risk for: med/psych decompensation Time Spent With Patient Time: Total time managing care of this patient today _20___ minutes.
[2023-11-09 10:49] VITALS: BP 157/74; PULSE 100
--- NOTE | 2023-11-09 12:29 | MHC.RECOVRN ---
AUDIT-C Brief Intervention Pt had positive screen for unhealthy alcohol use on admission, subsequently met with t/w to discuss alcohol use and recovery supports/options. Pt voices concern regarding alcohol use and is aware that drinking at unhealthy levels is known to increase risk of alcohol related health problems. Pt reports alcohol use x 1 night prior to admission. Prior to that, had been in recovery x 6 months. Pt expresses how alcohol use has impacted health, including negative impact on mental health. Discussed risk reduction strategies including drinking below the recommended limit. Provided pt with written resources including information on inpatient and outpatient treatment, ALEKSANDAR, harm reduction, and recovery coaching. Pt plans to continue with inpatient [facility] treatment upon dc, would like CSS placement. Pt provided with t/w contact information if questions or concerns arise. Denies other questions or concerns at this time.
[2023-11-09] MEDS: methocarbamoL 750 MG TABLET PO (12:48)
[2023-11-09] MEDS: Lidocaine 4 % Patch ADH..PATCH 2 PATCH TRANSDERMA (12:48)
[2023-11-09 20:00] VITALS: BP 150/81; PULSE 94; RESP 14; TEMP 36.4; O2SAT 96
[2023-11-09] MEDS: Prazosin HCL 1 MG CAPSULE 3 MG PO (20:10)
[2023-11-09] MEDS: ARIPiprazole 20 MG TABLET PO (20:11)
[2023-11-09] MEDS: Mirtazapine 15 MG TABLET PO (20:11)
[2023-11-09] MEDS: traZODone HCL 25 MG HALFTAB 75 MG PO (20:18)
[2023-11-10] MEDS: Nicotine Polacrilex 2 MG GUM BUCCAL ×10 (02:06→19:52)
[2023-11-10] MEDS: Omeprazole 20 MG CAPSULE.DR PO (05:00)
--- NOTE | 2023-11-10 05:00 | PC.NURSE ---
OOB at this time. requested AM prilosec. administered as requested.
[2023-11-10 07:35] VITALS: BP 126/62; PULSE 101; RESP 18; TEMP 36.1; O2SAT 97
[2023-11-10] MEDS: Furosemide 20 MG TABLET PO (08:18)
[2023-11-10] MEDS: Nicotine 21 MG PATCH.TD24 TRANSDERMA (08:19)
[2023-11-10] MEDS: PHENobarbitaL 30 MG TABLET PO (08:20)
[2023-11-10] MEDS: Gabapentin 300 MG CAPSULE 600 MG PO ×3 (08:20→19:51)
[2023-11-10] MEDS: Rivaroxaban 10 MG TABLET PO (08:20)
[2023-11-10] MEDS: methADONE HCl 20 MG/2 ML ORAL.CONC 60 MG PO (08:22)
[2023-11-10] MEDS: chlorproMAZINE HCl 25 MG TABLET 75 MG PO ×3 (08:27→19:53)
[2023-11-10] MEDS: busPIRone HCl 5 MG TABLET 15 MG PO ×3 (08:27→19:51)
[2023-11-10] MEDS: Lidocaine 4 % Patch ADH..PATCH 2 PATCH TRANSDERMA (08:27)
[2023-11-10] MEDS: Albuterol Sulfate 90 MCG 8 GM INHALER 2 PUFF INHALE (08:32)
--- NOTE | 2023-11-10 09:08 | P.PNPSI_ITS ---
Subjective Subjective Date of Service: 11/10/23 Reason For Visit: Suicide Attempt Subjective Notes: Conditional Voluntary Interim History: Reviewed with Dr. Ellison. Pt reports feeling good today; pt stated, I'm just anxious. I hope I get a respite bed but if not I'm okay with going to a [facility] . denies SI/HI/VH/AH. social with peers and staff. Medication Compliance: Yes Side effects from medications: No Attending Groups: Yes Review of Systems Constitutional: Reports as per HPI Eyes: Reports as per HPI Reports as per HPI Cardiovascular: Reports as per HPI Respiratory: Reports as per HPI Gastrointestinal: Reports as per HPI Genitourinary: Reports as per HPI Musculoskeletal: Reports as per HPI Skin/Breast: Reports as per HPI Reports as per HPI Psychiatric: Reports as per HPI Endocrine: Reports as per HPI Hematologic/Lymphatic: Reports as per HPI Allergic/Immunologic: Reports as per HPI Mental Status Exam Mental Status Exam Narrative: Pt is alert and oriented; behavior is cooperative and calm; dressed in hospital attire; mood is described as good ; eye contact appropriate; Speech is normal rate, volume and prosody and not pressured; thought process is organized and goal directed; Thought content is on tx; denies SI/HI/VH/AH. Diagnostics Vital Signs (24Hr): Vital Signs - 24 hr 11/09/23 10:49 11/09/23 20:00 11/10/23 07:35 Temperature 97.5 F 96.9 F Pulse Rate 100 94 101 H Respiratory Rate 14 18 Blood Pressure 157/74 H 150/81 H 126/62 Pulse Oximetry 96 97 Oxygen Delivery Method Room Air Room Air BMI result Body Mass Index 34.4 Medications Medications Current Medications Albuterol Sulfate (Albuterol Sulfate 90 Mcg 8 Gm Inhaler) 2 puff INHALE Q4H PRN PRN Reason: Wheezing Last Admin: 11/10/23 08:32 Dose: 2 puff Aripiprazole (Aripiprazole 20 Mg Tablet) 20 mg PO BEDTIME [facility] Last Admin: 11/09/23 20:11 Dose: 20 mg Buspirone HCl (Buspirone Hcl 5 Mg Tablet) 15 mg PO TID [facility] Last Admin: 11/10/23 08:27 Dose: 15 mg Chlorpromazine HCl (Chlorpromazine Hcl 25 Mg Tablet) 75 mg PO TID [facility] Last Admin: 11/10/23 08:27 Dose: 75 mg Clonidine HCl (Clonidine Hcl 0.1 Mg Tablet) 0.1 mg PO TID PRN; Protocol PRN Reason: Anxiety Last Admin: 11/09/23 20:11 Dose: 0.1 mg Furosemide (Furosemide 20 Mg Tablet) 20 mg PO DAILY [facility]; Protocol Last Admin: 11/10/23 08:18 Dose: 20 mg Gabapentin (Gabapentin 300 Mg Capsule) 600 mg PO TID PEDRO Last Admin: 11/10/23 08:20 Dose: 600 mg Lidocaine (Lidocaine 4 % Patch Adh..Patch) 2 patch TRANSDERMA DAILY [facility]; Protocol Last Admin: 11/10/23 08:27 Dose: 2 patch Melatonin (Melatonin 3 Mg Tablet) 6 mg PO BEDTIME PRN PRN Reason: Insomnia Last Admin: 11/09/23 20:17 Dose: 6 mg Methadone HCl (Methadone Hcl 20 Mg/2 Ml Oral.Conc) 60 mg PO DAILY [facility] Last Admin: 11/10/23 08:22 Dose: 60 mg Methocarbamol (Methocarbamol 750 Mg Tablet) 750 mg PO BID PRN PRN Reason: muscle spasm Last Admin: 11/09/23 12:48 Dose: 750 mg Mirtazapine (Mirtazapine 15 Mg Tablet) 15 mg PO BEDTIME PEDRO Last Admin: 11/09/23 20:11 Dose: 15 mg Nicotine (Nicotine 21 Mg Patch.Td24) 21 mg TRANSDERMA DAILY [facility] Last Admin: 11/10/23 08:19 Dose: 21 mg Nicotine Polacrilex (Nicotine Polacrilex 2 Mg Gum) 2 mg BUCCAL Q1H PRN PRN Reason: Nicotine Cravings Last Admin: 11/10/23 08:20 Dose: 2 mg Omeprazole (Omeprazole 20 Mg Capsule.Dr) 20 mg PO DAILY@0630 [facility] Last Admin: 11/10/23 05:00 Dose: 20 mg Phenobarbital (Phenobarbital 30 Mg Tablet) 30 mg PO DAILY [facility]; Protocol Stop: 11/11/23 09:01 Last Admin: 11/10/23 08:20 Dose: 30 mg Prazosin HCl (Prazosin Hcl 1 Mg Capsule) 3 mg PO BEDTIME [facility]; Protocol Last Admin: 11/09/23 20:10 Dose: 3 mg Rivaroxaban (Rivaroxaban 10 Mg Tablet) 10 mg PO DAILY [facility] Last Admin: 11/10/23 08:20 Dose: 10 mg Trazodone HCl (Trazodone Hcl 25 Mg Halftab) 75 mg PO BEDTIME PRN PRN Reason: Insomnia Last Admin: 11/09/23 20:18 Dose: 75 mg Triamcinolone Acetonide (Triamcinolone Acet 0.1 % Cream 15 Gm Tube) 1 appl TOPICAL BID PEDRO; Protocol Last Admin: 11/09/23 20:20 Dose: Not Given Allergies Allergies Allergy/AdvReac Type Severity Reaction Status Date / Time amoxicillin [AMOXICILLIN] Allergy Unknown HIVES Verified 08/18/23 01:25 Assessment & Plan Assessment & Plan (1) Bipolar 2 disorder, major depressive episode: Status: Acute Code(s): F31.81 - Bipolar II disorder (2) PTSD (post-traumatic stress disorder): Status: Chronic Code(s): F43.10 - Post-traumatic stress disorder, unspecified (3) TBI (traumatic brain injury): Status: Chronic Code(s): S06.9X9A - Unspecified intracranial injury with loss of consciousness of unspecified duration, initial encounter (4) Opioid use disorder: Status: Acute Code(s): F11.90 - Opioid use, unspecified, uncomplicated (5) Cocaine use disorder: Status: Acute Code(s): F14.10 - Cocaine abuse, uncomplicated Plan Patient is a 38 year old male with hx of Bipolar d/o, PTSD, cocaine use d/o, opioid use d/o and TBI who presented to ER via EMS secondary to being found passed out in the [facility]. Plan: CV 15 minute safety checks Continue home medications Hold [facility] Possible referral to outpatient program discharge planning 11/08: Pt reports feeling alright today; pt stated, I'm just anxious. I'm trying to go to groups. I'm hoping to get into respite . denies SI/HI/VH/AH. Pt reports sleeping well. social with peers. Continue current tx plan. 11/09: Pt reports feeling good today; pt stated, I'm just anxious. I hope I get a respite bed but if not I'm okay with going to a [facility] . denies SI/HI/VH/AH. social with peers and staff. Plan for discharge possibly this week. Patient educated on: diagnosis, medication risk/benefits and therapeutic strategies Informed Consent: understands Reason for continued inpatient stay Substantial Risk for: med/psych decompensation Time Spent With Patient Time: Total time managing care of this patient today _20___ minutes.
[2023-11-10 10:06] VITALS: BP 136/77; PULSE 92
[2023-11-10] MEDS: cloNIDine HCL 0.1 MG TABLET PO ×2 (10:07→17:12)
--- NOTE | 2023-11-10 10:15 | MHC.CLN ---
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
[2023-11-10 19:40] VITALS: BP 141/67; PULSE 89; RESP 18; TEMP 36.1; O2SAT 96
[2023-11-10] MEDS: Triamcinolone Acet 0.1 % Cream 15 GM TUBE 1 APPL TOPICAL (19:50)
[2023-11-10] MEDS: Prazosin HCL 1 MG CAPSULE 3 MG PO (19:51)
[2023-11-10] MEDS: Melatonin 3 MG TABLET 6 MG PO (19:51)
[2023-11-10] MEDS: Mirtazapine 15 MG TABLET PO (19:52)
[2023-11-10] MEDS: traZODone HCL 25 MG HALFTAB 75 MG PO (19:52)
[2023-11-10] MEDS: ARIPiprazole 20 MG TABLET PO (19:53)
[2023-11-10] MEDS: methocarbamoL 750 MG TABLET PO (19:54)
[2023-11-11] MEDS: Nicotine Polacrilex 2 MG GUM BUCCAL ×5 (01:10→11:50)
[2023-11-11] MEDS: Omeprazole 20 MG CAPSULE.DR PO (06:12)
[2023-11-11] MEDS: methADONE HCl 20 MG/2 ML ORAL.CONC 60 MG PO (07:46)
[2023-11-11] MEDS: Nicotine 21 MG PATCH.TD24 TRANSDERMA (07:46)
[2023-11-11] MEDS: chlorproMAZINE HCl 25 MG TABLET 75 MG PO (07:47)
[2023-11-11] MEDS: busPIRone HCl 5 MG TABLET 15 MG PO (07:47)
[2023-11-11] MEDS: Furosemide 20 MG TABLET PO (07:48)
[2023-11-11] MEDS: Gabapentin 300 MG CAPSULE 600 MG PO (07:48)
[2023-11-11] MEDS: Rivaroxaban 10 MG TABLET PO (07:48)
[2023-11-11] MEDS: PHENobarbitaL 30 MG TABLET PO (07:48)
[2023-11-11] MEDS: Triamcinolone Acet 0.1 % Cream 15 GM TUBE 1 APPL TOPICAL (07:53)
[2023-11-11 08:04] VITALS: BP 109/54; PULSE 79; RESP 16; TEMP 36.3; O2SAT 96
[2023-11-11] MEDS: cloNIDine HCL 0.1 MG TABLET PO (09:08)
[2023-11-11] MEDS: Lidocaine 4 % Patch ADH..PATCH 2 PATCH TRANSDERMA (09:11)
[2023-11-11] MEDS: Naloxone HCl Nasal TAKE HOME 4 MG SPRAY 8 MG NOSTRILALT (12:34)
--- NOTE | 2023-11-11 12:36 | PM.PSYDC ---
DS: Providers Provider Date of Service: 11/11/23 Date of admission: 11/07/23 16:26 Date of discharge: 11/11/23 Primary care physician: Unknown Physician Admitting clinician: Daphney Shaw Attending physician on admission: Colin Ellison Consults: 11/07/23 17:37 Addiction Medicine Routine Consulting Provider: Addiction Covering Reason for consultation: scored on audit c and agreed to consult Has provider been notified: No Attending physician on discharge: Colin Ellison Discharging clinician: Daphney Shaw DS: Diagnosis Discharge Diagnosis (1) Bipolar 2 disorder, major depressive episode: Status: Acute (2) PTSD (post-traumatic stress disorder): Status: Chronic (3) TBI (traumatic brain injury): Status: Chronic (4) Opioid use disorder: Status: Acute (5) Cocaine use disorder: Status: Acute DS: Medications Discharge Medications Home Medications: Home Medications Medication Instructions Recorded Confirmed methadone 10 mg/mL oral 60 mg PO DAILY 04/03/23 11/05/23 concentrate (Methadone Intensol) ketoconazole 2 % shampoo 1 appl topical 2XW 11/05/23 11/05/23 Previous Rx's Medication Instructions Recorded albuterol sulfate 90 mcg/actuation 2 puff inhalation Q4H PRN 11/11/23 aerosol inhaler Shortness Of Breath Or Wheezing 30 days #1 inhaler aripiprazole 20 mg tablet (Abilify) 20 mg PO BEDTIME 30 days #30 tabs 11/11/23 buspirone 15 mg tablet 15 mg PO TID 30 days #90 tabs 11/11/23 chlorpromazine 50 mg tablet 50 mg PO TID 30 days #90 tabs 11/11/23 furosemide 20 mg tablet (Lasix) 20 mg PO DAILY 30 days #30 tabs 11/11/23 gabapentin 600 mg tablet 600 mg PO TID 30 days #90 tabs 11/11/23 melatonin 3 mg tablet 6 mg (2 x 3 mg) PO BEDTIME PRN 11/11/23 Insomnia 30 days #60 tabs methocarbamol 750 mg tablet 750 mg PO BID PRN muscle spasm 14 11/11/23 days #28 tabs mirtazapine 15 mg tablet 15 mg PO BEDTIME 30 days #30 tabs 11/11/23 omeprazole 20 mg capsule,delayed 20 mg PO DAILY 30 days #30 caps 11/11/23 release prazosin 1 mg capsule 3 mg PO BEDTIME 30 days #90 caps 11/11/23 rivaroxaban 10 mg tablet (Xarelto) 10 mg PO DAILY 30 days #30 tabs 11/11/23 Mental Status Exam Mental Status Exam Narrative: Pt is alert and oriented; behavior is cooperative, friendly and calm; dressed in casual attire; mood is described as good ; eye contact appropriate; Speech is normal rate, volume and prosody and not pressured; thought process is organized and goal directed; Thought content is on tx; denies SI/HI/VH/AH. DS: Summary Hospital Course Hospital Course: Patient is a 38 year old male with hx of Bipolar d/o, PTSD, cocaine use d/o, opioid use d/o and TBI who presented to ER via EMS secondary to being found passed out in the [place]. Per crisis report, pt reported drinking six beers and taking 6mg of klonopin with no intent to OD but endorses SI. Pt was last admitted to on 08/31/23 secondary to SI with plan to OD but requested to discharge the same day. He reports being admitted psychiatrically to [facility] 3-4 weeks ago. 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 He then told drank six beers and told his friend to shoot me up with heroin) and took 6mg klonopin. Patient reported this was a suicide attempt because he wanted to smiling ; he reported auditory and visual hallucinations. Pt was recently at [facility] program in [place]. During admission assessment, pt presents calm and cooperative. He reports feeling anxious and depressed ; pt stated, I relapsed and was out drinking in the [place] with my friend. I passed out and he called 911. I didn't overdose on my klonopin. I don't know why they keep saying it was an overdose. I was worried about my girlfriend and if I'm going to be a good father . Pt reports he currently does not have outpatient psychiatric providers and had received his most recent scripts from [facility]. He reports 6 months of sobriety prior to this admission. Pt stated, I want to remain sober and get into a program for treatment . pt denies SI/HI/VH/AH. During hospital course, CV 15 minute safety checks Continue home medications Hold [facility] Possible referral to outpatient program discharge planning Pt reports feeling alright today; pt stated, I'm just anxious. I'm trying to go to groups. I'm hoping to get into respite . denies SI/HI/VH/AH. Pt reports sleeping well. social with peers. Pt reports feeling good today; pt stated, I'm just anxious. I hope I get a respite bed but if not I'm okay with going to a residential . denies SI/HI/VH/AH. social with peers and staff. Patient to be discharged to respite. He reports plan to follow up with outpatient providers and wants to focus on sobriety. denies SI/HI/VH/AH. Time spent discussing smoking cessation with patient: 3 to 10 minutes Status at Discharge Cognitive/behavioral status at discharge: Patient was interviewed prior to discharge and found to be fully oriented and without any SI or HI. Patient has insight and demonstrates good judgment in terms of wanting to pursue treatment. Patient has a safety plan that includes presenting to the closest ER or calling 911 if feeling unsafe. Functional status at discharge: independent ambulation Overall status at discharge: patient is back to baseline Time Spent with Patient Time attestation: Total time managing care of this patient today _30___ minutes. Time spent: Less than 30 minutes Discharge Plan Discharge Anticipated Discharge Date/Time: 11/11/23 13:30 Patient Disposition: Xfer to Respite Facility Discharge Diagnosis: Bipolar d/o, PTSD, Cocaine use d/o, opioid use d/o Discharge Medications: New prazosin 1 mg Capsule 3 mg PO BEDTIME 30 Days Qty: 90 0RF Protocol: Hold for SBP< HOLD for SBP < : 90 aripiprazole [Abilify] 20 mg Tablet 20 mg PO BEDTIME 30 Days Qty: 30 0RF buspirone 15 mg tablet 15 mg PO TID 30 Days Qty: 90 0RF chlorpromazine 50 mg tablet 50 mg PO TID 30 Days Qty: 90 0RF gabapentin 600 mg tablet 600 mg PO TID 30 Days Qty: 90 0RF mirtazapine 15 mg Tablet 15 mg PO BEDTIME 30 Days Qty: 30 0RF melatonin 3 mg Tablet 6 mg PO BEDTIME PRN (Reason: Insomnia) 30 Days Qty: 60 0RF Continued methocarbamol 750 mg tablet 750 mg PO BID PRN (Reason: muscle spasm) 14 Days Qty: 28 0RF omeprazole 20 mg capsule,delayed release(DR/EC) 20 mg PO DAILY 30 Days Qty: 30 0RF furosemide [Lasix] 20 mg tablet 20 mg PO DAILY 30 Days Qty: 30 0RF albuterol sulfate 90 mcg/actuation HFA aerosol inhaler 2 puff inhalation Q4H PRN (Reason: Shortness Of Breath Or Wheezing) 30 Days Qty: 1 0RF Xarelto 10 mg tablet 10 mg PO DAILY 30 Days Qty: 30 0RF Rx Instructions: for 35 days methadone [Methadone Intensol] 10 mg/mL Concentrate 60 mg PO DAILY ketoconazole 2 % shampoo 1 appl topical 2XW Discontinued prazosin 1 mg capsule 3 mg PO BEDTIME 30 Days Qty: 90 0RF mirtazapine 15 mg Tablet 15 mg PO BEDTIME 30 Days Qty: 30 0RF buspirone 15 mg Tablet 15 mg PO TID 30 Days Qty: 90 0RF trazodone 50 mg tablet 75 mg PO BEDTIME PRN (Reason: Insomnia) nicotine (polacrilex) 2 mg gum 2 mg PO Q2H PRN (Reason: Nicotine Cravings) clonazepam 0.5 mg tablet 0.5 mg PO TID PRN (Reason: anxiety) chlorpromazine 25 mg tablet 75 mg PO TID gabapentin 300 mg capsule 600 mg PO TID aripiprazole 20 mg tablet 20 mg PO BEDTIME melatonin 3 mg tablet 6 mg PO BEDTIME PRN (Reason: Insomnia) Discharge Orders: Discharge Order (Routine); Ordered 11/11/23 Ordered By: Daphney Shaw Diet: Regular diet Activity on Discharge: As tolerated Stand Alone Forms: Patient Portal Discharge page Care Plan Goals: Maintain mood and safe behaviors Take medications as prescribed Continue to pursue sobriety Practice coping skills Continue with outpatient providers and reach out to them as needed Health Concerns: Mood stability and behaviors Sobriety Plan of Treatment: Follow up with your PCP, psychiatric provider and other outpatient providers regarding above concerns Take medications as prescribed Assessment: Patient was interviewed prior to discharge and found to be fully oriented and without any SI or HI. Patient has insight and demonstrates good judgment in terms of wanting to pursue treatment. Patient has a safety plan that includes presenting to the closest ER or calling 911 if feeling unsafe.
== END 2023-11-11 13:39 | DRG 753 ==
PROVIDERS: Admitting Provider Psychiatry & Neurology Psychiatry; Responsible Provider Registered Nurse; Visit Provider Psychiatry & Neurology Psychiatry
DX: F31.81 Bipolar II disorder (principal); R45.851 Suicidal ideations; F11.20 Opioid dependence, uncomplicated; F17.210 Nicotine dependence, cigarettes, uncomplicated; F14.10 Cocaine abuse, uncomplicated; F43.10 Post-traumatic stress disorder, unspecified; Z59.02 Unsheltered homelessness; Z87.820 Personal history of traumatic brain injury; Z71.6 Tobacco abuse counseling; Z79.899 Other long term (current) drug therapy
CPT/HCPCS: 90686

== ENCOUNTER → 2023-11-07 16:26 | Outpatient (BNV) | payer OTHER, SELFPAY | PROVIDERS: Admitting Provider Psychiatry & Neurology Psychiatry; Responsible Provider Registered Nurse; Visit Provider Registered Nurse | DX: F31.81 Bipolar II disorder (principal); F11.90 Opioid use, unspecified, uncomplicated; S06.9X9D Unspecified intracranial injury with loss of consciousness of unspecified duration, subsequent encounter; F43.12 Post-traumatic stress disorder, chronic; F14.10 Cocaine abuse, uncomplicated | CPT/HCPCS: 99231; 99233 ==

== ENCOUNTER 2024-01-19 06:56 | Inpatient (IN) | payer OTHER, SELFPAY ==
--- NOTE | 2024-01-19 | ECG_ITS ---
Test Reason : PROLONGED QT Blood Pressure : / mmHG Vent. Rate : 093 BPM Atrial Rate : 093 BPM P-R Int : 148 ms QRS Dur : 074 ms QT Int : 344 ms P-R-T Axes : 059 032 037 degrees QTc Int : 427 ms Normal sinus rhythm Normal ECG When compared with ECG of 04-NOV-2023 04:30, No significant change was found Referred By: Generic ED Physician Electronically Signed By:KATIE ULLOA MD
[2024-01-19 07:09] VITALS: BP 130/88; PULSE 108; O2SAT 97
[2024-01-19 07:15] VITALS: BP 163/96; PULSE 103; RESP 18; TEMP 37.3; O2SAT 95; BMI 39.3
--- NOTE | 2024-01-19 07:38 | ED_ITS ---
HPI - General Adult General Chief complaint: Psychiatric Symptoms Stated complaint: SI with a plan Relapsed last night Time Seen by Provider: 01/19/24 07:38 History of Present Illness HPI narrative: The patient is a 38-year-old male with a history of bipolar 2 disorder, PTSD, and substance use disorder who was most recently hospitalized psychiatrically at this hospital 2 months ago in early November 2023. The patient says that he has been sober from the point of view of illegal drugs since he was discharged from the hospital until yesterday or the day before when he relapsed. He says that he stopped taking his regular medications a few days ago. He then relapsed on heroin. He says that last night he attempted to kill himself by overdosing with injectable heroin. He spoke to some friends today who recommended he come to the hospital and he came here by ambulance. He has had no fever, sweats, chills. He has had a rash between his thighs that he thinks has a heat rash. Related Data Home Medications ?Medication ?Instructions ?Recorded ?Confirmed chlorpromazine 25 mg tablet 75 mg PO TID 01/19/24 01/19/24 cyclobenzaprine 5 mg tablet 5 mg PO TID PRN Pain 01/19/24 01/19/24 methadone 10 mg/mL oral 45 mg PO DAILY 01/19/24 01/19/24 concentrate (Methadone Intensol) mirtazapine 15 mg tablet 15 mg PO BEDTIME 01/19/24 01/19/24 nicotine (polacrilex) 4 mg gum 4 mg PO Q2H 01/19/24 01/19/24 nicotine 21 mg/24 hr daily 1 patch topical DAILY 01/19/24 01/19/24 transdermal patch trazodone 50 mg tablet 75 mg PO BEDTIME PRN Insomnia 01/19/24 01/19/24 Previous Rx's ?Medication ?Instructions ?Recorded albuterol sulfate 90 mcg/actuation 2 puff inhalation Q4H PRN 11/11/23 aerosol inhaler Shortness Of Breath Or Wheezing 30 days #1 inhaler aripiprazole 20 mg tablet (Abilify) 20 mg PO BEDTIME 30 days #30 tabs 11/11/23 buspirone 15 mg tablet 15 mg PO TID 30 days #90 tabs 11/11/23 gabapentin 600 mg tablet 600 mg PO TID 30 days #90 tabs 11/11/23 omeprazole 20 mg capsule,delayed 20 mg PO DAILY 30 days #30 caps 11/11/23 release prazosin 1 mg capsule 3 mg PO BEDTIME 30 days #90 caps 11/11/23 Allergies Allergy/AdvReac Type Severity Reaction Status Date / Time amoxicillin [AMOXICILLIN] Allergy Unknown HIVES Verified 01/19/24 07:16 Review of Systems 2 Review of Systems: Yes all other systems are reviewed and are negative PMFSH Past Medical History Medical History Polysubstance use disorder Hypertension Bipolar 2 disorder, major depressive episode TBI (traumatic brain injury) PTSD (post-traumatic stress disorder) Surgical History History of mandibular surgery Family History Family History Other No pertinent family history Social History Social History Household Members: None Household Members Other:: homeless Housing: Homeless Housing Other:: homeless Do you presently have visiting nurse or other home services: No Alcohol intake: current Alcohol intake frequency: 3 or more drinks per day Alcohol type: beer and hard liquor Comment: 1:1 in room Patient Tobacco Use Status: Current everyday Tobacco user Tobacco use type: Cigarette Cigarette Packs Per Day: 1.5 Cigarettes Per Day: 30.0 Years Smoked: 27 e-Cigarette/Vaping Use: Never Used Second Hand Smoke Exposure: Yes Substance Use Type: Heroin Advance Directives: No Do you have a plan to hurt others: No Plan service: No Sexual orientation: Straight/Heterosexual Physical Exam ED Vital Signs: Vital Signs - 24 hr 01/19/24 07:15 Temperature 99.1 F Pulse Rate 103 H Respiratory Rate 18 Blood Pressure 163/96 H Pulse Oximetry 95 Oxygen Delivery Method Room Air BMI result Body Mass Index 39.3 Const Other: The patient is awake and alert. He has a subdued demeanor. He does not seem in any distress. HENMT Other: Face is symmetrical. Mucous membranes moist Eyes Other: Pupils are round equal, conjunctivae are clear, extraocular movements intact Neck Other: Moving his neck easily Resp Effort & Inspection: normal respiratory effort Auscultation: clear to auscultation bilaterally Cardio Rate: regular rate Rhythm: regular rhythm Heart sounds: S1 normal heart sound present and S2 normal heart sound present GI Other: Abdomen is soft and nontender Skin Other: There is a mild erythematous rash on the inner aspects of patient's upper thighs Neuro Other: The patient is awake and alert with a normal mental status. Cranial nerves 2-12 are intact. He moves all 4 extremities normally and appropriately. Normal coordination. Normal sensation. The patient is neurologically intact. Extrem Other: No peripheral edema Medications Administered Generic Name Dose Route Start Last Admin Trade Name Samra PRN Reason Stop Dose Admin Buspirone HCl 15 mg 01/19/24 09:00 01/19/24 09:20 Buspirone Hcl 5 Mg Tablet PO 15 mg TID PEDRO Administration Chlorpromazine HCl 75 mg 01/19/24 09:00 01/19/24 09:20 Chlorpromazine Hcl 25 Mg Tablet PO 75 mg TID PEDRO Administration Gabapentin 600 mg 01/19/24 09:00 01/19/24 09:20 Gabapentin 600 Mg Tablet PO 600 mg TID PEDRO Administration Nicotine 21 mg 01/19/24 09:00 01/19/24 09:21 Nicotine 21 Mg Patch.Td24 TRANSDERMA 21 mg DAILY PEDRO Administration Nicotine Polacrilex 4 mg 01/19/24 08:45 01/19/24 09:20 Nicotine Polacrilex 2 Mg Gum BUCCAL 4 mg Q2H PEDRO Administration Nystatin 1 appl 01/19/24 09:00 01/19/24 09:38 Nystatin Cream 15 Gm Tube TOPICAL Not Given BID [facility] Protocol Omeprazole 20 mg 01/19/24 09:00 01/19/24 09:20 Omeprazole 20 Mg Capsule. PO 20 mg DAILY@0630 [facility] Administration Medical Decision Making Medical Decision Making [facility] Narrative: The patient is a 38-year-old male with a history of bipolar disorder and also a history of substance use disorder who was on methadone. He presents to the emergency room complaining of feeling depressed and having gone off his medications and having tried to commit suicide by injecting himself with heroin last night. Clinically he looks well at the moment. He is medically stable for a behavioral health disposition. He seems to have a mild candidal rash or heat-rash type rash on his upper thighs. His regular medications have been ordered. His methadone dose has been confirmed an ordered. Lab Data 01/19/24 09:20 Labs: Lab Results 01/19/24 01/19/24 01/19/24 Range/Units 07:25 07:33 09:20 Sodium 135 (135-145) mmol/L Potassium 4.7 D (3.3-5.1) mmol/L Chloride 102 (96-108) mmol/L Carbon Dioxide 22 (22-29) mmol/L Anion Gap 16 (12-20) BUN 19 H (9-16) mg/dL Creatinine 0.79 (0.5-1.4) mg/dL Estim Creat Clear Calc 176.0 Estimated GFR > 60 Random Glucose 107 (60-115) mg/dL Calcium 9.3 (8.4-10.2) mg/dL Total Bilirubin 1.4 H (0.0-1.0) mg/dL AST 170 H (5-37) U/L ALT 124 H (0-40) U/L Alkaline Phosphatase 94 (39-117) U/L Total Protein 8.2 H (6.5-8.0) g/dL Albumin 4.1 (3.5-5.0) g/dL Urine Color Dark Yellow Urine Appearance Clear Urine pH 5.5 (5.0-9.0) Ur Specific [place] >= 1.030 H (1.005-1.025) Urine Protein 30 (1+) H (Neg-Trace) mg/dL Urine Glucose (UA) Negative (Negative) mg/dL Urine Ketones Trace (Negative) mg/dL Urine Blood Negative (Negative) Urine Nitrite Negative (Negative) Ur Leukocyte Esterase Negative (Negative) Urine RBC 0-2 (0-2) /HPF Urine WBC 0-5 (0-5) /HPF Ur Squamous Epith Cells 0-2 (0-2) /HPF Urine Bacteria None Seen (None Seen) Hyaline Casts 0-2 (0-2) /LPF Urine Opiates Screen POSITIVE H (Not Detect) Ur Buprenorphine Scrn Not Detected (Not Detect) ng/mL Ur Oxycodone Screen Not Detected (Not Detect) ng/mL Urine Methadone Screen Positive H (Not Detect) ng/mL Urine Fentanyl Screen POSITIVE H (Not Detect) Ur Barbiturates Screen Not Detected (Not Detect) Ur Phencyclidine Scrn Not Detected (Not Detect) Ur Amphetamines Screen Not Detected (Not Detect) U Benzodiazepines Scrn Not Detected (Not Detect) Urine Cocaine Screen POSITIVE H (Not Detect) U Marijuana (THC) Screen Not Detected (Not Detect) Ethyl Alcohol < 10 mg/dL Discharge Plan Discharge Clinical Impression: Depression, Substance use disorder Patient Disposition: Still a Patient Prescriptions: No Action prazosin 1 mg Capsule 3 mg PO BEDTIME 30 Days Qty: 90 0RF Protocol: Hold for SBP< HOLD for SBP < : 90 aripiprazole [Abilify] 20 mg Tablet 20 mg PO BEDTIME 30 Days Qty: 30 0RF buspirone 15 mg tablet 15 mg PO TID 30 Days Qty: 90 0RF gabapentin 600 mg tablet 600 mg PO TID 30 Days Qty: 90 0RF omeprazole 20 mg capsule,delayed release(DR/EC) 20 mg PO DAILY 30 Days Qty: 30 0RF albuterol sulfate 90 mcg/actuation HFA aerosol inhaler 2 puff inhalation Q4H PRN (Reason: Shortness Of Breath Or Wheezing) 30 Days Qty: 1 0RF chlorpromazine 25 mg tablet 75 mg PO TID mirtazapine 15 mg tablet 15 mg PO BEDTIME cyclobenzaprine 5 mg tablet 5 mg PO TID PRN (Reason: Pain) nicotine (polacrilex) 4 mg gum 4 mg PO Q2H nicotine 21 mg/24 hr patch 24 hour 1 patch topical DAILY trazodone 50 mg tablet 75 mg PO BEDTIME PRN (Reason: Insomnia) methadone [Methadone Intensol] 10 mg/mL Concentrate 45 mg PO DAILY Interventions: [place]-Suicide Risk Severity Scale Last Done: 01/19/24 07:17 Print Language: Kittitian
[2024-01-19 07:52] LABS: Appearance Urine Clear; Color Urine Dark Yellow; Glucose Urine UA Negative (Negative); Leukocyte Esterase Urine Negative (Negative); Nitrite Urine Negative (Negative); PH 5.5 (5.0-9.0); Specific Gravity - Urine >= 1.030 (1.005-1.025); UMIC TRIGGER UACC YES; Urine Blood Negative (Negative); Urine Ketones Trace mg/dL (Negative); Urine Protein 30 (1+) mg/dL (Neg-Trace)
[2024-01-19 07:56] LABS: Amphetamine Screen Urine Not Detected (Not Detect); Barbiturates, Urine Not Detected (Not Detect); Benzodiazepines Screen Urine Not Detected (Not Detect); Buprenorphine Scr Not Detected (Not Detect); Cannabinoid Screen Urine Not Detected (Not Detect); Cocaine Screen Urine POSITIVE (Not Detect); Methadone Screen, Urine Positive (Not Detect); Opiate Screen Urine POSITIVE (Not Detect); Oxycodone Screen Urine Not Detected (Not Detect); Phencyclidine Screen Urine Not Detected (Not Detect)
[2024-01-19 08:06] LABS: Fentanyl, urine POSITIVE (Not Detect)
[2024-01-19 08:07] LABS: Bacteria Urine None Seen (None Seen); Hyaline Casts Urine 0-2 /LPF (0-2); RBC Urine 0-2 /HPF (0-2); Squamous Epithelial Cell Urine 0-2 /HPF (0-2); WBC Urine 0-5 /HPF (0-5)
--- NOTE | 2024-01-19 08:39 | PC.NURSE ---
methadone verified, AZALEA Culp, via [facility]. 45mg PO given 01/17/24 at 0824, verification faxed to pharmacy.
--- NOTE | 2024-01-19 09:04 | HE.PHANOTE ---
RE: METHADONE DOSE Last dose of methadone 45 mg was given on 01/17/24 @0824 per [facility] at [facility].
[2024-01-19] MEDS: busPIRone HCl 5 MG TABLET 15 MG PO ×3 (09:20→22:40)
[2024-01-19] MEDS: chlorproMAZINE HCl 25 MG TABLET 75 MG PO ×3 (09:20→22:40)
[2024-01-19] MEDS: Gabapentin 600 MG TABLET PO ×3 (09:20→22:40)
[2024-01-19] MEDS: Omeprazole 20 MG CAPSULE.DR PO (09:20)
[2024-01-19] MEDS: Nicotine Polacrilex 2 MG GUM 4 MG BUCCAL ×4 (09:20→22:47)
[2024-01-19] MEDS: Nicotine 21 MG PATCH.TD24 TRANSDERMA (09:21)
--- NOTE | 2024-01-19 09:38 | PC.NURSE ---
called pharmacy for missing nystatin, will administer if available in timely fashion.
[2024-01-19 09:53] LABS: Alanine Aminotransferase 124 U/L (0-40); Albumin Level 4.1 g/dL (3.5-5.0); Alkaline Phosphatase 94 U/L (39-117); Anion Gap 16 (12-20); Aspartate Amino Transferase 170 U/L (5-37); Bilirubin Total 1.4 mg/dL (0.0-1.0); Blood Urea Nitrogen 19 mg/dL (9-16); Calcium 9.3 mg/dL (8.4-10.2); Carbon Dioxide 22 mmol/L (22-29); Chloride 102 mmol/L (96-108); Estimated Glomerular Filt Rate > 60; Ethanol < 10 mg/dL; Glucose Random 107 mg/dL (60-115); Potassium 4.7 mmol/L (3.3-5.1); Sodium 135 mmol/L (135-145); Total Protein 8.2 g/dL (6.5-8.0)
[2024-01-19] MEDS: methADONE HCl 20 MG/2 ML ORAL.CONC 45 MG PO (10:25)
[2024-01-19 13:52] VITALS: BP 120/70; PULSE 118; RESP 16; TEMP 36.2; O2SAT 95
--- NOTE | 2024-01-19 14:52 | P.HPPS_ITS ---
HPI Date of Service: 01/19/24 Chief Complaint: SI Sources of Information: patient interviewed, chart reviewed and crisis/core team assessment reviewed HPI Subjective Notes: Lerner Warning and Conditional Voluntary Narrative: Mr. Abad is a 38 year-old male with hx of MDD, opioid and cocaine use disorder who called EMS and was brought to [facility] due to increase depression and SI with plan to OD on IV heroin. In the ED, his utox was positive for opioid, fentanyl, mehtadone and cocaine. Pt was recently discharged from back in 11/2023 and stepped down to residential substance use treatment program. On the unit, pt presented as somewhat somnolent. He reported he was at [facility] in [place]. He reported he did not like his peers nor the staff and he left two days prior to presenting to the ED. He reported he tried to OD on IV heroin as suicide attempt but states he actually did not, although he did relapse on heroin and cocaine after at least 3-4 weeks of sobriety. He denies VH/AH. He reports sleep is poor for the past 3 days. Past Psychiatric History: Inpt: , 11/2023; Hx of multiple psychiatric inpatient admissions. CSS, detox. SA: reported one prior via overdose Past medication trials: Medical Evaluation Reviewed: Yes [facility] Medical History Polysubstance use disorder Hypertension Bipolar 2 disorder, major depressive episode TBI (traumatic brain injury) PTSD (post-traumatic stress disorder) Surgical History History of mandibular surgery Family History: Mental Health Substance use disorder Uncle suicided Social History: Born in [place]. Pt is an only child. 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 Trauma History: yes Diagnostics Vital Signs (24Hr): Vital Signs - 24 hr 01/19/24 07:15 01/19/24 13:52 Temperature 99.1 F 97.1 F Pulse Rate 103 H 118 H Respiratory Rate 18 16 Blood Pressure 163/96 H 120/70 Pulse Oximetry 95 95 Oxygen Delivery Method Room Air Room Air BMI result Body Mass Index 39.3 Labs 01/19/24 09:20 Labs: Laboratory Results - last 48 hr 01/19/24 01/19/24 01/19/24 07:25 07:33 09:20 Sodium 135 Potassium 4.7 D Chloride 102 Carbon Dioxide 22 Anion Gap 16 BUN 19 H Creatinine 0.79 Estim Creat Clear Calc 176.0 Estimated GFR > 60 Random Glucose 107 Calcium 9.3 Total Bilirubin 1.4 H AST 170 H ALT 124 H Alkaline Phosphatase 94 Total Protein 8.2 H Albumin 4.1 Urine Color Dark Yellow Urine Appearance Clear Urine pH 5.5 Ur Specific [place] >= 1.030 H Urine Protein 30 (1+) H Urine Glucose (UA) Negative Urine Ketones Trace Urine Blood Negative Urine Nitrite Negative Ur Leukocyte Esterase Negative Urine RBC 0-2 Urine WBC 0-5 Ur Squamous Epith Cells 0-2 Urine Bacteria None Seen Hyaline Casts 0-2 Urine Opiates Screen POSITIVE H Ur Buprenorphine Scrn Not Detected Ur Oxycodone Screen Not Detected Urine Methadone Screen Positive H Urine Fentanyl Screen POSITIVE H Ur Barbiturates Screen Not Detected Ur Phencyclidine Scrn Not Detected Ur Amphetamines Screen Not Detected U Benzodiazepines Scrn Not Detected Urine Cocaine Screen POSITIVE H U Marijuana (THC) Screen Not Detected Ethyl Alcohol < 10 Meds/Allergies Meds Home Medications ?Medication ?Instructions ?Recorded ?Confirmed ?Type chlorpromazine 25 mg tablet 75 mg PO TID 01/19/24 01/19/24 History cyclobenzaprine 5 mg tablet 5 mg PO TID PRN Pain 01/19/24 01/19/24 History methadone 10 mg/mL oral 45 mg PO DAILY 01/19/24 01/19/24 History concentrate (Methadone Intensol) mirtazapine 15 mg tablet 15 mg PO BEDTIME 01/19/24 01/19/24 History nicotine (polacrilex) 4 mg gum 4 mg PO Q2H 01/19/24 01/19/24 History nicotine 21 mg/24 hr daily 1 patch topical DAILY 01/19/24 01/19/24 History transdermal patch trazodone 50 mg tablet 75 mg PO BEDTIME PRN Insomnia 01/19/24 01/19/24 History Allergies Allergies Allergy/AdvReac Type Severity Reaction Status Date / Time amoxicillin [AMOXICILLIN] Allergy Unknown HIVES Verified 01/19/24 07:16 Mental Status Exam Mental Status Exam Narrative: Appearance: wearing hospital gown, MO, in NAD somnolent Behavior: limited engagement due to somnolence. Psychomotor: some retardation due to sommnolence TP: mostly linear TC: wanting treatment here in the hospital Mood: better' Affect: somnolent SI: passive HI: none VH/AH: none Delusions: none Insight/judgment: poor x 2. Memory/cog: alert, oriented x 3. grossly intact to conversational testing. Assessment & Plan Assessment & Plan (1) Bipolar 2 disorder, major depressive episode: Status: Acute Code(s): F31.81 - Bipolar II disorder (2) Cocaine use disorder: Status: Acute Code(s): F14.10 - Cocaine abuse, uncomplicated (3) Opioid use disorder, moderate, dependence: Status: Acute Code(s): F11.20 - Opioid dependence, uncomplicated Plan Mr. Abad is a 38 year-old male with hx of Bipolar Disorder, opioid and cocaine use disorder who called EMS was brought to [facility] due to increase depression, recent relapsed after he left [facility]SS program with suicidal ideation with plan to OD on IV heroin. Utox positive for heroin, fentanyl, cocaine and methadone. We discussed risks, benefits and alternative treatment options. Continue current medications. monitor oversedation. PLAN 1. Admit to M3, CV, 15 minutes checks for safety. 2. continue current medications 3. aftercare planning. Patient educated on: diagnosis, medication risk/benefits and substance abuse Reason for continued inpatient stay Substantial Risk for: harm to self Statement Statement: I have reviewed the history and physical and performed a pertinent examination on my patient. No changes have occurred unless specified. If the History and Physical was not performed prior to admission, the Hospitalist's service will be consulted for completing the admission physical. Time Spent With Patient Time: Total time managing care of this patient today ____ minutes.
--- NOTE | 2024-01-19 15:37 | PC.ADMIT ---
Rey is a 38-year-old male admitted from [facility] to M3 on a CV for treatment of unspecified depressive d/o and opiate use disorder. Tox screen positive for opiates, cocaine, fentanyl and methadone. Per crisis eval, pt presented to the ED reporting that he intentionally overdosed on IV heroin while in an alley. Pt feels that his medications are not working. Upon arrival to M3, pt was calm, cooperative, alert and oriented. Skin check complete. Pt has reddened area in between his thighs due to chafing. Pt reported feeling tired and asked to complete his admission at a later time. Thought process is linear and organized. Pt placed on 15 minute safety checks.
[2024-01-19 22:34] VITALS: BP 127/73; PULSE 105; RESP 18; TEMP 37.2; O2SAT 94
[2024-01-19] MEDS: Mirtazapine 15 MG TABLET PO (22:40)
[2024-01-19] MEDS: ARIPiprazole 20 MG TABLET PO (22:40)
[2024-01-19] MEDS: Prazosin HCL 1 MG CAPSULE 3 MG PO (22:40)
[2024-01-20] MEDS: Nicotine Polacrilex 2 MG GUM 4 MG BUCCAL ×6 (03:10→22:35)
[2024-01-20 07:00] VITALS: BMI 40.6
[2024-01-20 07:40] VITALS: BP 161/70; PULSE 105; RESP 20; TEMP 37.3; O2SAT 95
[2024-01-20] MEDS: chlorproMAZINE HCl 25 MG TABLET 75 MG PO ×3 (08:10→22:34)
[2024-01-20] MEDS: Omeprazole 20 MG CAPSULE.DR PO (08:10)
[2024-01-20] MEDS: busPIRone HCl 5 MG TABLET 15 MG PO ×3 (08:10→22:34)
[2024-01-20] MEDS: Gabapentin 600 MG TABLET PO ×3 (08:11→22:34)
[2024-01-20] MEDS: Nicotine 21 MG PATCH.TD24 TRANSDERMA (08:13)
[2024-01-20] MEDS: methADONE HCl 20 MG/2 ML ORAL.CONC 45 MG PO (08:13)
--- NOTE | 2024-01-20 15:58 | P.EN_ITS ---
Event Note Date of Service: 01/20/24 Event Note: Patient is a 38-year-old male with PMH significant for polysubstance use disorder, IVDU, PTSD, and bipolar 2 disorder who was seen for evaluation of left foot redness and swelling at site of recent heroin injection. Reports he last used 2 nights prior. This morning noticed redness and swelling surrounding injection point. Also reports some minor foot pain with movement. Denies fever or chills. No other systemic symptoms. Upon physical examination patient with area of erythema at left distal aspect of foot with minor swelling. No induration or fluctuance noted. No purulent discharge or drainage. As pictured below. Will treat with doxycycline 100 mg p.o. b.i.d. x7 days. Patient should take with meals to avoid stomach upset. Thank you for allowing us to participate in the care of this patient. Signing off this time. Please re- consult if any acute issues or concerns arise. Time Spent With Patient Time: Total time managing care of this patient today ____ minutes.
[2024-01-20] MEDS: Doxycycline Monohydrate 100 MG CAPSULE PO (16:13)
--- NOTE | 2024-01-20 16:52 | HO.PSYCHPN ---
Subjective Subjective Date of Service: 01/20/24 Reason For Visit: SI Subjective Notes: Conditional Voluntary Interim History: Pt slept most of the night. He has left foot edema, warm to touch, and painful. Appears infected. ordered hospitalist consult. He reports mood better. He denies SI/HI. He did not get labs as vein difficult to get. encouraged to drink fluids. No behavioral concerns. Review of Systems Review of Systems somewhat somnolent. No chest pain. No SOB. No GI disturbances including abdominal pain, diarrhea or constipation. Yes all other systems are reviewed and are negative Mental Status Exam Mental Status Exam Narrative: Appearance: wearing hospital gown, MO, in NAD somnolent Behavior: limited engagement due to somnolence. Psychomotor: some retardation due to sommnolence TP: mostly linear TC: wanting treatment here in the hospital Mood: better' Affect: somnolent SI: passive HI: none VH/AH: none Delusions: none Insight/judgment: poor x 2. Memory/cog: alert, oriented x 3. grossly intact to conversational testing. Diagnostics Vital Signs (24Hr): Vital Signs - 24 hr 01/19/24 22:34 01/20/24 07:40 Temperature 99.0 F 99.2 F Pulse Rate 105 H 105 H Respiratory Rate 18 20 Blood Pressure 127/73 161/70 H Pulse Oximetry 94 95 Oxygen Delivery Method Room Air Room Air BMI result Body Mass Index 40.6 Labs 01/19/24 09:20 Labs: Laboratory Results - last 48 hr 01/19/24 01/19/24 01/19/24 07:25 07:33 09:20 Sodium 135 Potassium 4.7 D Chloride 102 Carbon Dioxide 22 Anion Gap 16 BUN 19 H Creatinine 0.79 Estim Creat Clear Calc 176.0 Estimated GFR > 60 Random Glucose 107 Calcium 9.3 Total Bilirubin 1.4 H AST 170 H ALT 124 H Alkaline Phosphatase 94 Total Protein 8.2 H Albumin 4.1 Urine Color Dark Yellow Urine Appearance Clear Urine pH 5.5 Ur Specific [place] >= 1.030 H Urine Protein 30 (1+) H Urine Glucose (UA) Negative Urine Ketones Trace Urine Blood Negative Urine Nitrite Negative Ur Leukocyte Esterase Negative Urine RBC 0-2 Urine WBC 0-5 Ur Squamous Epith Cells 0-2 Urine Bacteria None Seen Hyaline Casts 0-2 Urine Opiates Screen POSITIVE H Ur Buprenorphine Scrn Not Detected Ur Oxycodone Screen Not Detected Urine Methadone Screen Positive H Urine Fentanyl Screen POSITIVE H Ur Barbiturates Screen Not Detected Ur Phencyclidine Scrn Not Detected Ur Amphetamines Screen Not Detected U Benzodiazepines Scrn Not Detected Urine Cocaine Screen POSITIVE H U Marijuana (THC) Screen Not Detected Ethyl Alcohol < 10 Medications Medications Current Medications Al Hydroxide/Mg Hydroxide (Magnesium Hydrox/Alum Hydrox 30 Ml Oral.Susp) 30 ml PO Q6H PRN PRN Reason: Heartburn/Nausea Albuterol Sulfate (Albuterol Sulfate 90 Mcg 8 Gm Inhaler) 2 puff INHALE Q4H PRN PRN Reason: Shortness Of Breath Or Wheezing Aripiprazole (Aripiprazole 20 Mg Tablet) 20 mg PO BEDTIME REPLACED BY [facility] Last Admin: 01/19/24 22:40 Dose: 20 mg Buspirone HCl (Buspirone Hcl 5 Mg Tablet) 15 mg PO TID REPLACED BY [facility] Last Admin: 01/20/24 14:47 Dose: 15 mg Chlorpromazine HCl (Chlorpromazine Hcl 25 Mg Tablet) 75 mg PO TID REPLACED BY [facility] Last Admin: 01/20/24 14:46 Dose: 75 mg Doxycycline Monohydrate (Doxycycline Monohydrate 100 Mg Capsule) 100 mg PO BID REPLACED BY [facility] Stop: 01/27/24 09:01 Gabapentin (Gabapentin 600 Mg Tablet) 600 mg PO TID REPLACED BY [facility] Last Admin: 01/20/24 14:46 Dose: 600 mg Hydroxyzine HCl (Hydroxyzine Hcl 25 Mg Tablet) 25 mg PO Q6H PRN PRN Reason: Anxiety Magnesium Hydroxide (Milk Of Magnesia 30 Ml Oral.Susp) 30 ml PO DAILY PRN PRN Reason: Constipation Methadone HCl (Methadone Hcl 20 Mg/2 Ml Oral.Conc) 45 mg PO DAILY REPLACED BY [facility] Last Admin: 01/20/24 08:13 Dose: 45 mg Mirtazapine (Mirtazapine 15 Mg Tablet) 15 mg PO BEDTIME REPLACED BY [facility] Last Admin: 01/19/24 22:40 Dose: 15 mg Nicotine (Nicotine 21 Mg Patch.Td24) 21 mg TRANSDERMA DAILY REPLACED BY [facility] Last Admin: 01/20/24 08:13 Dose: 21 mg Nicotine Polacrilex (Nicotine Polacrilex 2 Mg Gum) 4 mg BUCCAL Q2H PRN PRN Reason: Nicotine Cravings Last Admin: 01/20/24 14:47 Dose: 4 mg Nystatin (Nystatin Cream 15 Gm Tube) 1 appl TOPICAL BID PEDRO; Protocol Last Admin: 01/20/24 09:50 Dose: Not Given Omeprazole (Omeprazole 20 Mg Capsule.Dr) 20 mg PO DAILY@0630 REPLACED BY [facility] Last Admin: 01/20/24 08:10 Dose: 20 mg Prazosin HCl (Prazosin Hcl 1 Mg Capsule) 3 mg PO BEDTIME PEDRO; Protocol Last Admin: 01/19/24 22:40 Dose: 3 mg Trazodone HCl (Trazodone Hcl 25 Mg Halftab) 75 mg PO BEDTIME PRN PRN Reason: Insomnia Allergies Allergies Allergy/AdvReac Type Severity Reaction Status Date / Time amoxicillin [AMOXICILLIN] Allergy Unknown HIVES Verified 01/19/24 07:16 Assessment & Plan Assessment & Plan (1) Bipolar 2 disorder, major depressive episode: Status: Acute Code(s): F31.81 - Bipolar II disorder (2) Opioid use disorder, moderate, dependence: Status: Acute Code(s): F11.20 - Opioid dependence, uncomplicated (3) Cocaine use disorder: Status: Acute Code(s): F14.10 - Cocaine abuse, uncomplicated Plan Mr. Abad is a 38 year-old with hx of Bipolar 2 disorder opioid and cocaine use disorder who called EMS was brought to [facility] ED due to increased depression, SI with plan to OD on IV heroin, recently relapsed on cocaine and opioids after he left [facility]SS program. We discussed risks, benefits and alternative treatment options. continue current medications. PLAN 01/19- hospitalist consult for left foot infection. continue other medications. Reason for continued inpatient stay Substantial Risk for: inability to function Time Spent With Patient Time: Total time managing care of this patient today ____ minutes.
[2024-01-20 22:27] VITALS: BP 131/80; PULSE 97; RESP 18; TEMP 36.9; O2SAT 96
[2024-01-20] MEDS: Prazosin HCL 1 MG CAPSULE 3 MG PO (22:34)
[2024-01-20] MEDS: ARIPiprazole 20 MG TABLET PO (22:34)
[2024-01-20] MEDS: Mirtazapine 15 MG TABLET PO (22:34)
[2024-01-20] MEDS: traZODone HCL 25 MG HALFTAB 75 MG PO (22:42)
[2024-01-21] MEDS: Omeprazole 20 MG CAPSULE.DR PO (05:44)
[2024-01-21] MEDS: Nicotine Polacrilex 2 MG GUM 4 MG BUCCAL ×6 (05:44→21:54)
[2024-01-21 07:41] VITALS: BP 131/78; PULSE 78; RESP 14; TEMP 36.8; O2SAT 97
[2024-01-21] MEDS: Nicotine 21 MG PATCH.TD24 TRANSDERMA (08:43)
[2024-01-21] MEDS: methADONE HCl 20 MG/2 ML ORAL.CONC 45 MG PO (08:44)
[2024-01-21] MEDS: Doxycycline Monohydrate 100 MG CAPSULE PO ×2 (08:46→21:50)
[2024-01-21] MEDS: Gabapentin 600 MG TABLET PO ×3 (08:46→21:52)
[2024-01-21] MEDS: chlorproMAZINE HCl 25 MG TABLET 75 MG PO ×3 (08:46→21:51)
[2024-01-21] MEDS: busPIRone HCl 5 MG TABLET 15 MG PO ×3 (08:46→21:50)
[2024-01-21] MEDS: Ibuprofen 400 MG TABLET PO ×2 (17:11→21:54)
[2024-01-21 21:45] VITALS: BP 135/73; PULSE 90; RESP 16; TEMP 36.6; O2SAT 95
[2024-01-21] MEDS: Prazosin HCL 1 MG CAPSULE 3 MG PO (21:50)
[2024-01-21] MEDS: Mirtazapine 15 MG TABLET PO (21:51)
[2024-01-21] MEDS: traZODone HCL 25 MG HALFTAB 75 MG PO (21:52)
[2024-01-21] MEDS: Nystatin Cream 15 GM TUBE 1 APPL TOPICAL (21:54)
[2024-01-22] MEDS: Omeprazole 20 MG CAPSULE.DR PO (07:20)
[2024-01-22] MEDS: Nicotine Polacrilex 2 MG GUM 4 MG BUCCAL ×7 (07:20→20:05)
[2024-01-22 08:00] VITALS: BP 127/74; PULSE 85; RESP 16; TEMP 36.6; O2SAT 95
[2024-01-22] MEDS: Nicotine 21 MG PATCH.TD24 TRANSDERMA (08:29)
[2024-01-22] MEDS: chlorproMAZINE HCl 25 MG TABLET 75 MG PO ×3 (08:29→20:04)
[2024-01-22] MEDS: Doxycycline Monohydrate 100 MG CAPSULE PO ×2 (08:30→20:04)
[2024-01-22] MEDS: busPIRone HCl 5 MG TABLET 15 MG PO ×3 (08:30→20:03)
[2024-01-22] MEDS: Gabapentin 600 MG TABLET PO ×3 (08:30→20:03)
[2024-01-22] MEDS: methADONE HCl 20 MG/2 ML ORAL.CONC 45 MG PO (08:30)
[2024-01-22] MEDS: Nystatin Cream 15 GM TUBE 1 APPL TOPICAL ×2 (08:33→20:06)
[2024-01-22 08:42] LABS: Basophils Percent Auto 0.5 % (0-2); Eosinophils Absolute Auto 0.3 X10*3/uL (0.0-0.4); Eosinophils Percent Auto 4.9 % (0-4); Hematocrit 38.9 % (42.0-52.0); Hemoglobin 13.7 g/dl (14.0-18.0); Imm Gran Abs Auto 0.08 X10*3/uL (0.00-0.03); Imm Gran Pct Auto 1.4 % (0.0-0.4); Mean Corpuscular HGB Conc 35.2 g/dl (31.0-36.0); Mean Corpuscular Hemoglobin 31.4 pg (27.0-33.0); Mean Corpuscular Volume 89.2 fL (80.0-98.0); Mean Platelet Volume 10.4 fL (9.4-12.4); Monocytes Absolute Auto 0.7 X10*3/uL (0.1-1.2); Monocytes Percent Auto 11.9 % (2-11); Neutrophils Absolute Auto 2.8 x10*3/uL (2.0-8.3); Neutrophils Percent Auto 47.3 % (45-73); Platelet Count 256 X10*3/uL (160-400); Red Blood Count 4.36 X10*6/uL (4.60-5.80); Red Cell Distribution Width 12.3 % (11.0-16.0); White Blood Count 5.9 X10*3/uL (4.8-10.8)
[2024-01-22] MEDS: Ibuprofen 400 MG TABLET PO ×2 (08:52→19:32)
[2024-01-22 09:13] LABS: Alanine Aminotransferase 125 U/L (0-40); Albumin Level 3.4 g/dL (3.5-5.0); Alkaline Phosphatase 102 U/L (39-117); Anion Gap 15 (12-20); Aspartate Amino Transferase 67 U/L (5-37); Bilirubin Total 0.3 mg/dL (0.0-1.0); Blood Urea Nitrogen 13 mg/dL (9-16); Calcium 9.2 mg/dL (8.4-10.2); Carbon Dioxide 21 mmol/L (22-29); Chloride 107 mmol/L (96-108); Cholesterol 146 mg/dL (<200); Creatinine Clr Calc Pharmacy 208.1; Estimated Average Glucose 105 mg/dL; Estimated Glomerular Filt Rate > 60; Glucose Fasting 102 mg/dL (60-99); HDL Cholesterol 43 mg/dL (>40); Hemoglobin A1c % 5.3 % (<6.0); LDL Cholesterol Calculated 83 mg/dL (<100); Potassium 4.7 mmol/L (3.3-5.1); Sodium 138 mmol/L (135-145); Total Protein 7.1 g/dL (6.5-8.0); Triglycerides 103 mg/dL (<150)
[2024-01-22 09:44] LABS: Folate 9.9 ng/mL (> or = 4.0); Vitamin B12 485 pg/mL (200-900)
--- NOTE | 2024-01-22 12:02 | P.PNPSI_ITS ---
Subjective Subjective Date of Service: 01/22/24 Reason For Visit: SI Subjective Notes: Conditional Voluntary Interim History: Patient was seen and discussed in rounds today. Records and plans were reviewed. He has been visible but mostly isolative. Pleasant on approach. Still having some anxiety and depression. Eating and sleeping well. No complaints or side effects. No changes were made today Review of Systems Review of Systems Yes all other systems are reviewed and are negative Mental Status Exam Mental Status Exam Narrative: In today's visit he is alert, oriented and pleasant. Normal speech. Moderate eye contact. Appropriate affect. No signs of psychosis. No SI. Cognitively intact. Judgment is intact Diagnostics Vital Signs (24Hr): Vital Signs - 24 hr 01/21/24 21:45 01/22/24 08:00 Temperature 97.9 F 97.8 F Pulse Rate 90 85 Respiratory Rate 16 16 Blood Pressure 135/73 127/74 Pulse Oximetry 95 95 Oxygen Delivery Method Room Air Room Air BMI result Body Mass Index 40.6 Labs 01/22/24 07:56 01/22/24 07:56 Labs: Laboratory Results - last 48 hr 01/22/24 07:56 WBC 5.9 RBC 4.36 L Hgb 13.7 L D Hct 38.9 L MCV 89.2 MCH 31.4 MCHC 35.2 RDW 12.3 Plt Count 256 MPV 10.4 Immature Gran % (Auto) 1.4 H Neut % (Auto) 47.3 Lymph % (Auto) 34.0 [place] % (Auto) 11.9 H Eos % (Auto) 4.9 H Baso % (Auto) 0.5 Lymph # (Auto) 2.0 [place] # (Auto) 0.7 Eos # (Auto) 0.3 Baso # (Auto) 0.0 Abs Immat Gran (auto) 0.08 H Absolute Neuts (auto) 2.8 Absolute Nucleated RBC 0.000 Nucleated RBC % (auto) 0.0 Sodium 138 Potassium 4.7 Chloride 107 Carbon Dioxide 21 L Anion Gap 15 BUN 13 Creatinine 0.68 Estim Creat Clear Calc 208.1 Estimated GFR > 60 Fasting Glucose 102 H Estimat Average Glucose 105 Hemoglobin A1c % 5.3 Calcium 9.2 Total Bilirubin 0.3 AST 67 H ALT 125 H Alkaline Phosphatase 102 Total Protein 7.1 Albumin 3.4 L Triglycerides 103 Cholesterol 146 LDL Cholesterol, Calc 83 HDL Cholesterol 43 Vitamin B12 485 Folate 9.9 Medications Medications Current Medications Al Hydroxide/Mg Hydroxide (Magnesium Hydrox/Alum Hydrox 30 Ml Oral.Susp) 30 ml PO Q6H PRN PRN Reason: Heartburn/Nausea Albuterol Sulfate (Albuterol Sulfate 90 Mcg 8 Gm Inhaler) 2 puff INHALE Q4H PRN PRN Reason: Shortness Of Breath Or Wheezing Buspirone HCl (Buspirone Hcl 5 Mg Tablet) 15 mg PO TID [facility] Last Admin: 01/22/24 08:30 Dose: 15 mg Chlorpromazine HCl (Chlorpromazine Hcl 25 Mg Tablet) 75 mg PO TID [facility] Last Admin: 01/22/24 08:29 Dose: 75 mg Doxycycline Monohydrate (Doxycycline Monohydrate 100 Mg Capsule) 100 mg PO BID [facility] Stop: 01/27/24 09:01 Last Admin: 01/22/24 08:30 Dose: 100 mg Gabapentin (Gabapentin 600 Mg Tablet) 600 mg PO TID [facility] Last Admin: 01/22/24 08:30 Dose: 600 mg Hydroxyzine HCl (Hydroxyzine Hcl 25 Mg Tablet) 25 mg PO Q6H PRN PRN Reason: Anxiety Ibuprofen (Ibuprofen 400 Mg Tablet) 400 mg PO TID PRN PRN Reason: Pain, Moderate(Pain Scale 4-6) Last Admin: 01/22/24 08:52 Dose: 400 mg Magnesium Hydroxide (Milk Of Magnesia 30 Ml Oral.Susp) 30 ml PO DAILY PRN PRN Reason: Constipation Methadone HCl (Methadone Hcl 20 Mg/2 Ml Oral.Conc) 45 mg PO DAILY [facility] Last Admin: 01/22/24 08:30 Dose: 45 mg Mirtazapine (Mirtazapine 15 Mg Tablet) 15 mg PO BEDTIME [facility] Last Admin: 01/21/24 21:51 Dose: 15 mg Nicotine (Nicotine 21 Mg Patch.Td24) 21 mg TRANSDERMA DAILY [facility] Last Admin: 01/22/24 08:29 Dose: 21 mg Nicotine Polacrilex (Nicotine Polacrilex 2 Mg Gum) 4 mg BUCCAL Q2H PRN PRN Reason: Nicotine Cravings Last Admin: 01/22/24 11:46 Dose: 4 mg Nystatin (Nystatin Cream 15 Gm Tube) 1 appl TOPICAL BID [facility]; Protocol Last Admin: 01/22/24 08:33 Dose: 1 appl Omeprazole (Omeprazole 20 Mg Capsule.Dr) 20 mg PO DAILY@0630 [facility] Last Admin: 01/22/24 07:20 Dose: 20 mg Prazosin HCl (Prazosin Hcl 1 Mg Capsule) 3 mg PO BEDTIME [facility]; Protocol Last Admin: 01/21/24 21:50 Dose: 3 mg Trazodone HCl (Trazodone Hcl 25 Mg Halftab) 75 mg PO BEDTIME PRN PRN Reason: Insomnia Last Admin: 01/21/24 21:52 Dose: 75 mg Allergies Allergies Allergy/AdvReac Type Severity Reaction Status Date / Time amoxicillin [AMOXICILLIN] Allergy Unknown HIVES Verified 01/19/24 07:16 Assessment & Plan Assessment & Plan (1) Bipolar 2 disorder, major depressive episode: Status: Acute Code(s): F31.81 - Bipolar II disorder (2) Opioid use disorder, moderate, dependence: Status: Acute Code(s): F11.20 - Opioid dependence, uncomplicated (3) Cocaine use disorder: Status: Acute Code(s): F14.10 - Cocaine abuse, uncomplicated Plan Mr. Abad is a 38 year-old with hx of Bipolar 2 disorder opioid and cocaine use disorder who called EMS was brought to [facility] [place] ED due to increased depression, SI with plan to OD on IV heroin, recently relapsed on cocaine and opioids after he left [facility] program. We discussed risks, benefits and alternative treatment options. continue current medications. PLAN 01/19- hospitalist consult for left foot infection. continue other medications. 01/21: Continue current treatment and plan Reason for continued inpatient stay Substantial Risk for: med/psych decompensation Time Spent With Patient Time: Total time managing care of this patient today ____ minutes.
--- NOTE | 2024-01-22 17:31 | PC.NURSE ---
Addendum entered by Jose Raul José RN 01/22/24 17:37: Pt educated on decreasing sodium intake/diet and to elevate extremity. Original Note: Pt approached TW with c/o swelling in his left hand. Hand assessed and noted to have 2+ pitting edema. Pt denied pain or discomfort. skin warm and dry, no s/sx of infected noted. Pt denied any chest pain or in his hand. BP 140/84 P 104. MD notified, no new orders, continue to monitor. TW spoke further with patient, pt reports waking often with swollen hand. Will continue to monitor.
[2024-01-22 20:00] VITALS: BP 167/85; PULSE 110; RESP 20; TEMP 37.2; O2SAT 96
[2024-01-22] MEDS: Prazosin HCL 1 MG CAPSULE 3 MG PO (20:02)
[2024-01-22] MEDS: Mirtazapine 15 MG TABLET PO (20:03)
[2024-01-22] MEDS: traZODone HCL 25 MG HALFTAB 75 MG PO (20:05)
[2024-01-22] MEDS: Triamcinolone Acet 0.1 % Cream 15 GM TUBE 1 APPL TOPICAL (20:06)
[2024-01-23] MEDS: Nicotine Polacrilex 2 MG GUM 4 MG BUCCAL ×9 (00:11→20:19)
[2024-01-23] MEDS: Omeprazole 20 MG CAPSULE.DR PO (06:06)
[2024-01-23 07:40] VITALS: BP 127/74; PULSE 90; RESP 16; TEMP 36; O2SAT 97
[2024-01-23] MEDS: Triamcinolone Acet 0.1 % Cream 15 GM TUBE 1 APPL TOPICAL (08:00)
[2024-01-23] MEDS: methADONE HCl 20 MG/2 ML ORAL.CONC 45 MG PO (08:01)
[2024-01-23] MEDS: Nicotine 21 MG PATCH.TD24 TRANSDERMA (08:01)
[2024-01-23] MEDS: Ibuprofen 400 MG TABLET PO ×3 (08:02→20:31)
[2024-01-23] MEDS: Doxycycline Monohydrate 100 MG CAPSULE PO ×2 (08:02→20:27)
[2024-01-23] MEDS: chlorproMAZINE HCl 25 MG TABLET 75 MG PO ×3 (08:02→20:27)
[2024-01-23] MEDS: Gabapentin 600 MG TABLET PO ×3 (08:02→20:27)
[2024-01-23] MEDS: busPIRone HCl 5 MG TABLET 15 MG PO ×3 (08:02→20:27)
--- NOTE | 2024-01-23 08:44 | HO.PSYCHPN ---
Subjective Subjective Date of Service: 01/23/24 Reason For Visit: SI Subjective Notes: Conditional Voluntary Interim History: Patient was seen and discussed in rounds today. Records and plans were reviewed. He continues to be doing better and has been brighter in his affect. No behavioral issues. Moderate anxiety and depression persisting. No SI. He developed edema in both hands and forearm, mostly on his left and has had that in the past and had responded well to Lasix 20 mg which I will put in for him. Eating and sleeping adequately. No other changes were made. Review of Systems Review of Systems Lower arm and hand swelling and 2-3 +edema Yes all other systems are reviewed and are negative Mental Status Exam Mental Status Exam Narrative: In today's visit he is alert, oriented and pleasant. Normal speech. Moderate eye contact. Appropriate affect. No signs of psychosis. No SI. Cognitively intact. Judgment is intact Diagnostics Vital Signs (24Hr): Vital Signs - 24 hr 01/22/24 20:00 01/23/24 07:40 Temperature 99 F 96.8 F Pulse Rate 110 H 90 Respiratory Rate 20 16 Blood Pressure 167/85 H 127/74 Pulse Oximetry 96 97 Oxygen Delivery Method Room Air Room Air BMI result Body Mass Index 40.6 Labs 01/22/24 07:56 01/22/24 07:56 Labs: Laboratory Results - last 48 hr 01/22/24 07:56 WBC 5.9 RBC 4.36 L Hgb 13.7 L D Hct 38.9 L MCV 89.2 MCH 31.4 MCHC 35.2 RDW 12.3 Plt Count 256 MPV 10.4 Immature Gran % (Auto) 1.4 H Neut % (Auto) 47.3 Lymph % (Auto) 34.0 [place] % (Auto) 11.9 H Eos % (Auto) 4.9 H Baso % (Auto) 0.5 Lymph # (Auto) 2.0 [place] # (Auto) 0.7 Eos # (Auto) 0.3 Baso # (Auto) 0.0 Abs Immat Gran (auto) 0.08 H Absolute Neuts (auto) 2.8 Absolute Nucleated RBC 0.000 Nucleated RBC % (auto) 0.0 Sodium 138 Potassium 4.7 Chloride 107 Carbon Dioxide 21 L Anion Gap 15 BUN 13 Creatinine 0.68 Estim Creat Clear Calc 208.1 Estimated GFR > 60 Fasting Glucose 102 H Estimat Average Glucose 105 Hemoglobin A1c % 5.3 Calcium 9.2 Total Bilirubin 0.3 AST 67 H ALT 125 H Alkaline Phosphatase 102 Total Protein 7.1 Albumin 3.4 L Triglycerides 103 Cholesterol 146 LDL Cholesterol, Calc 83 HDL Cholesterol 43 Vitamin B12 485 Folate 9.9 TSH TNP Medications Medications Current Medications Al Hydroxide/Mg Hydroxide (Magnesium Hydrox/Alum Hydrox 30 Ml Oral.Susp) 30 ml PO Q6H PRN PRN Reason: Heartburn/Nausea Albuterol Sulfate (Albuterol Sulfate 90 Mcg 8 Gm Inhaler) 2 puff INHALE Q4H PRN PRN Reason: Shortness Of Breath Or Wheezing Buspirone HCl (Buspirone Hcl 5 Mg Tablet) 15 mg PO TID [facility] Last Admin: 01/23/24 08:02 Dose: 15 mg Chlorpromazine HCl (Chlorpromazine Hcl 25 Mg Tablet) 75 mg PO TID [facility] Last Admin: 01/23/24 08:02 Dose: 75 mg Doxycycline Monohydrate (Doxycycline Monohydrate 100 Mg Capsule) 100 mg PO BID [facility] Stop: 01/27/24 09:01 Last Admin: 01/23/24 08:02 Dose: 100 mg Gabapentin (Gabapentin 600 Mg Tablet) 600 mg PO TID [facility] Last Admin: 01/23/24 08:02 Dose: 600 mg Hydroxyzine HCl (Hydroxyzine Hcl 25 Mg Tablet) 25 mg PO Q6H PRN PRN Reason: Anxiety Ibuprofen (Ibuprofen 400 Mg Tablet) 400 mg PO TID PRN PRN Reason: Pain, Moderate(Pain Scale 4-6) Last Admin: 01/23/24 08:02 Dose: 400 mg Magnesium Hydroxide (Milk Of Magnesia 30 Ml Oral.Susp) 30 ml PO DAILY PRN PRN Reason: Constipation Methadone HCl (Methadone Hcl 20 Mg/2 Ml Oral.Conc) 45 mg PO DAILY [facility] Last Admin: 01/23/24 08:01 Dose: 45 mg Mirtazapine (Mirtazapine 15 Mg Tablet) 15 mg PO BEDTIME [facility] Last Admin: 01/22/24 20:03 Dose: 15 mg Nicotine (Nicotine 21 Mg Patch.Td24) 21 mg TRANSDERMA DAILY [facility] Last Admin: 01/23/24 08:01 Dose: 21 mg Nicotine Polacrilex (Nicotine Polacrilex 2 Mg Gum) 4 mg BUCCAL Q2H PRN PRN Reason: Nicotine Cravings Last Admin: 01/23/24 08:01 Dose: 4 mg Nystatin (Nystatin Cream 15 Gm Tube) 1 appl TOPICAL BID [facility]; Protocol Last Admin: 01/23/24 08:06 Dose: Not Given Omeprazole (Omeprazole 20 Mg Capsule.Dr) 20 mg PO DAILY@0630 [facility] Last Admin: 01/23/24 06:06 Dose: 20 mg Prazosin HCl (Prazosin Hcl 1 Mg Capsule) 3 mg PO BEDTIME [facility]; Protocol Last Admin: 01/22/24 20:02 Dose: 3 mg Trazodone HCl (Trazodone Hcl 25 Mg Halftab) 75 mg PO BEDTIME PRN PRN Reason: Insomnia Last Admin: 01/22/24 20:05 Dose: 75 mg Triamcinolone Acetonide (Triamcinolone Acet 0.1 % Cream 15 Gm Tube) 1 appl TOPICAL BID [facility]; Protocol Last Admin: 01/23/24 08:00 Dose: 1 appl Allergies Allergies Allergy/AdvReac Type Severity Reaction Status Date / Time amoxicillin [AMOXICILLIN] Allergy Unknown HIVES Verified 01/19/24 07:16 Assessment & Plan Assessment & Plan (1) Bipolar 2 disorder, major depressive episode: Status: Acute Code(s): F31.81 - Bipolar II disorder (2) Opioid use disorder, moderate, dependence: Status: Acute Code(s): F11.20 - Opioid dependence, uncomplicated (3) Cocaine use disorder: Status: Acute Code(s): F14.10 - Cocaine abuse, uncomplicated Plan Mr. Abad is a 38 year-old with hx of Bipolar 2 disorder opioid and cocaine use disorder who called EMS [place] [facility] [place] to [place], SI with plan to OD on IV heroin, recently relapsed on cocaine and opioids after he left [facility]SS program. We discussed risks, benefits and alternative treatment options. continue current medications. PLAN 01/19- hospitalist consult for left foot infection. continue other medications. 01/21: Continue current treatment and plan 01/22: Continue current regimen and plans. Lasix 20 mg daily added. Patient educated on: medication risk/benefits Reason for continued inpatient stay Substantial Risk for: rapid decompensation Time Spent With Patient Time: Total time managing care of this patient today ____ minutes.
[2024-01-23 09:37] VITALS: BP 127/74
[2024-01-23] MEDS: Furosemide 20 MG TABLET PO (09:37)
[2024-01-23 19:52] VITALS: BP 138/86; PULSE 102; RESP 18; TEMP 36.1; O2SAT 97
[2024-01-23] MEDS: hydrOXYzine HCL 25 MG TABLET PO (20:27)
[2024-01-23] MEDS: Mirtazapine 15 MG TABLET PO (20:27)
[2024-01-23] MEDS: traZODone HCL 25 MG HALFTAB 75 MG PO (20:28)
[2024-01-23] MEDS: Prazosin HCL 1 MG CAPSULE 3 MG PO (20:28)
[2024-01-24] MEDS: Omeprazole 20 MG CAPSULE.DR PO (06:02)
[2024-01-24] MEDS: Nicotine Polacrilex 2 MG GUM 4 MG BUCCAL ×7 (06:02→19:34)
[2024-01-24 07:45] VITALS: BP 130/64; PULSE 93; RESP 16; TEMP 36.1; O2SAT 95
[2024-01-24] MEDS: Nicotine 21 MG PATCH.TD24 TRANSDERMA (08:10)
[2024-01-24 08:11] VITALS: BP 130/64
[2024-01-24] MEDS: chlorproMAZINE HCl 25 MG TABLET 75 MG PO ×3 (08:11→20:17)
[2024-01-24] MEDS: Furosemide 20 MG TABLET PO (08:11)
[2024-01-24] MEDS: Doxycycline Monohydrate 100 MG CAPSULE PO ×2 (08:12→20:17)
[2024-01-24] MEDS: methADONE HCl 20 MG/2 ML ORAL.CONC 45 MG PO (08:12)
[2024-01-24] MEDS: busPIRone HCl 5 MG TABLET 15 MG PO ×3 (08:12→20:18)
[2024-01-24] MEDS: Gabapentin 600 MG TABLET PO ×3 (08:12→20:17)
[2024-01-24] MEDS: Ibuprofen 400 MG TABLET PO ×2 (08:18→19:34)
[2024-01-24] MEDS: hydrOXYzine HCL 25 MG TABLET PO ×2 (11:01→16:36)
--- NOTE | 2024-01-24 11:13 | P.PNPSI_ITS ---
Subjective Subjective Date of Service: 01/24/24 Reason For Visit: SI Subjective Notes: Conditional Voluntary Interim History: Pt sleeping through the night. Less somnolent today than prior days last week. He reports he is anxious about where he will go next. He asks for medications for anxiety- we discussed trying clonidine. We also discussed at this point given risks versus benefit of starting benzodiazepine given ongoing substance use. He denies SI/HI. UE edema improving with lasix, BP stable, tolerating medication. no behavioral concerns. gabapentin and NSAID can contribute to edema. Review of Systems Review of Systems Lower arm and hand swelling and 2-3 +edema Yes all other systems are reviewed and are negative Diagnostics Vital Signs (24Hr): Vital Signs - 24 hr 01/23/24 19:52 01/24/24 07:45 01/24/24 08:11 Temperature 96.9 F 97.0 F Pulse Rate 102 H 93 Respiratory Rate 18 16 Blood Pressure 138/86 130/64 130/64 Pulse Oximetry 97 95 Oxygen Delivery Method Room Air Room Air BMI result Body Mass Index 40.6 Labs 01/22/24 07:56 01/22/24 07:56 Labs: Laboratory Results - last 48 hr 01/22/24 07:56 TSH TNP Medications Medications Current Medications Al Hydroxide/Mg Hydroxide (Magnesium Hydrox/Alum Hydrox 30 Ml Oral.Susp) 30 ml PO Q6H PRN PRN Reason: Heartburn/Nausea Albuterol Sulfate (Albuterol Sulfate 90 Mcg 8 Gm Inhaler) 2 puff INHALE Q4H PRN PRN Reason: Shortness Of Breath Or Wheezing Buspirone HCl (Buspirone Hcl 5 Mg Tablet) 15 mg PO TID [facility] Last Admin: 01/24/24 08:12 Dose: 15 mg Chlorpromazine HCl (Chlorpromazine Hcl 25 Mg Tablet) 75 mg PO TID [facility] Last Admin: 01/24/24 08:11 Dose: 75 mg Doxycycline Monohydrate (Doxycycline Monohydrate 100 Mg Capsule) 100 mg PO BID [facility] Stop: 01/27/24 09:01 Last Admin: 01/24/24 08:12 Dose: 100 mg Furosemide (Furosemide 20 Mg Tablet) 20 mg PO DAILY [facility]; Protocol Last Admin: 01/24/24 08:11 Dose: 20 mg Gabapentin (Gabapentin 600 Mg Tablet) 600 mg PO TID [facility] Last Admin: 01/24/24 08:12 Dose: 600 mg Hydroxyzine HCl (Hydroxyzine Hcl 25 Mg Tablet) 25 mg PO Q6H PRN PRN Reason: Anxiety Last Admin: 01/24/24 11:01 Dose: 25 mg Ibuprofen (Ibuprofen 400 Mg Tablet) 400 mg PO TID PRN PRN Reason: Pain, Moderate(Pain Scale 4-6) Last Admin: 01/24/24 08:18 Dose: 400 mg Magnesium Hydroxide (Milk Of Magnesia 30 Ml Oral.Susp) 30 ml PO DAILY PRN PRN Reason: Constipation Methadone HCl (Methadone Hcl 20 Mg/2 Ml Oral.Conc) 45 mg PO DAILY [facility] Last Admin: 01/24/24 08:12 Dose: 45 mg Mirtazapine (Mirtazapine 15 Mg Tablet) 15 mg PO BEDTIME [facility] Last Admin: 01/23/24 20:27 Dose: 15 mg Nicotine (Nicotine 21 Mg Patch.Td24) 21 mg TRANSDERMA DAILY [facility] Last Admin: 01/24/24 08:10 Dose: 21 mg Nicotine Polacrilex (Nicotine Polacrilex 2 Mg Gum) 4 mg BUCCAL Q2H PRN PRN Reason: Nicotine Cravings Last Admin: 01/24/24 10:14 Dose: 4 mg Nystatin (Nystatin Cream 15 Gm Tube) 1 appl TOPICAL BID [facility]; Protocol Last Admin: 01/24/24 08:10 Dose: Not Given Omeprazole (Omeprazole 20 Mg Capsule.Dr) 20 mg PO DAILY@0630 [facility] Last Admin: 01/24/24 06:02 Dose: 20 mg Prazosin HCl (Prazosin Hcl 1 Mg Capsule) 3 mg PO BEDTIME [facility]; Protocol Last Admin: 01/23/24 20:28 Dose: 3 mg Trazodone HCl (Trazodone Hcl 25 Mg Halftab) 75 mg PO BEDTIME PRN PRN Reason: Insomnia Last Admin: 01/23/24 20:28 Dose: 75 mg Triamcinolone Acetonide (Triamcinolone Acet 0.1 % Cream 15 Gm Tube) 1 appl TOPICAL BID [facility]; Protocol Last Admin: 01/24/24 08:09 Dose: Not Given Allergies Allergies Allergy/AdvReac Type Severity Reaction Status Date / Time amoxicillin [AMOXICILLIN] Allergy Unknown HIVES Verified 01/19/24 07:16 Assessment & Plan Assessment & Plan (1) Bipolar 2 disorder, major depressive episode: Status: Acute Code(s): F31.81 - Bipolar II disorder (2) Opioid use disorder, moderate, dependence: Status: Acute Code(s): F11.20 - Opioid dependence, uncomplicated (3) Cocaine use disorder: Status: Acute Code(s): F14.10 - Cocaine abuse, uncomplicated Plan Mr. Abad is a 38 year-old with hx of Bipolar 2 disorder opioid and cocaine use disorder who called EMS was brought to [facility] [place] due to increased depression, SI with plan to OD on IV heroin, recently relapsed on cocaine and opioids after he left [facility]SS program. We discussed risks, benefits and alternative treatment options. continue current medications. PLAN 01/19- hospitalist consult for left foot infection. continue other medications. 01/21: Continue current treatment and plan 01/22: Continue current regimen and plans. Lasix 20 mg daily added. 01/23 added clonidine 0.1mg po BID for anxiety. we discussed risks of adding benzos as he continues to work on recovery. Reason for continued inpatient stay Substantial Risk for: inability to function Time Spent With Patient Time: Total time managing care of this patient today ____ minutes.
[2024-01-24 12:23] VITALS: BP 169/81
[2024-01-24] MEDS: cloNIDine HCL 0.1 MG TABLET PO ×2 (12:23→20:24)
[2024-01-24 19:58] VITALS: BP 139/78; PULSE 109; RESP 18; TEMP 35.7; O2SAT 96
[2024-01-24] MEDS: Mirtazapine 15 MG TABLET PO (20:17)
[2024-01-24] MEDS: traZODone HCL 25 MG HALFTAB 75 MG PO (20:18)
[2024-01-24] MEDS: Prazosin HCL 1 MG CAPSULE 3 MG PO (20:24)
[2024-01-25] MEDS: Omeprazole 20 MG CAPSULE.DR PO (05:50)
[2024-01-25] MEDS: Nicotine Polacrilex 2 MG GUM 4 MG BUCCAL ×7 (05:50→18:30)
[2024-01-25 07:46] VITALS: BP 131/74; PULSE 85; RESP 16; TEMP 35.5; O2SAT 97
[2024-01-25] MEDS: methADONE HCl 20 MG/2 ML ORAL.CONC 45 MG PO (08:00)
[2024-01-25 08:01] VITALS: BP 131/74
[2024-01-25] MEDS: chlorproMAZINE HCl 25 MG TABLET 75 MG PO ×3 (08:01→20:05)
[2024-01-25] MEDS: cloNIDine HCL 0.1 MG TABLET PO ×2 (08:01→20:04)
[2024-01-25] MEDS: Furosemide 20 MG TABLET PO (08:01)
[2024-01-25] MEDS: Gabapentin 600 MG TABLET PO ×3 (08:01→20:04)
[2024-01-25] MEDS: Doxycycline Monohydrate 100 MG CAPSULE PO ×2 (08:02→20:05)
[2024-01-25] MEDS: Nicotine 21 MG PATCH.TD24 TRANSDERMA (08:02)
[2024-01-25] MEDS: busPIRone HCl 5 MG TABLET 15 MG PO ×3 (08:02→20:05)
--- NOTE | 2024-01-25 09:40 | HO.PSYCHPN ---
Subjective Subjective Date of Service: 01/25/24 Reason For Visit: SI Subjective Notes: Conditional Voluntary Interim History: Reviewed with Dr. Cardona. Social with peers. pacing unit hallway while listening to music on unit headphones. Pt reports feeling okay but anxious ; pt stated, I'm worried about not knowing where I'm going to go from here. My is supposed to give in the next 2 weeks but at least she is at a program . Pt denies SI/HI/VH/AH. Medication Compliance: Yes Side effects from medications: No Attending Groups: Yes Review of Systems Constitutional: Reports as per HPI Eyes: Reports as per HPI Reports as per HPI Cardiovascular: Reports as per HPI Respiratory: Reports as per HPI Gastrointestinal: Reports as per HPI Genitourinary: Reports as per HPI Musculoskeletal: Reports as per HPI Skin/Breast: Reports as per HPI Reports as per HPI Psychiatric: Reports as per HPI Endocrine: Reports as per HPI Hematologic/Lymphatic: Reports as per HPI Allergic/Immunologic: Reports as per HPI Mental Status Exam Mental Status Exam Narrative: Pt is alert and oriented; behavior is cooperative and calm; dressed in casual attire; mood is described as anxious ; eye contact appropriate; Speech is normal rate, volume and prosody and not pressured; thought process is organized and goal directed; Thought content is on tx; otherwise pertinent to relevant topics and without any delusional content, paranoid ideations or grandiosity; denies SI/HI/VH/AH. Diagnostics Vital Signs (24Hr): Vital Signs - 24 hr 01/24/24 12:23 01/24/24 19:58 01/25/24 07:46 Temperature 96.2 F L 95.9 F L Pulse Rate 109 H 85 Respiratory Rate 18 16 Blood Pressure 169/81 H 139/78 131/74 Pulse Oximetry 96 97 Oxygen Delivery Method Room Air Room Air 01/25/24 08:01 01/25/24 08:01 Temperature Pulse Rate Respiratory Rate Blood Pressure 131/74 131/74 Pulse Oximetry Oxygen Delivery Method BMI result Body Mass Index 40.6 Labs 01/22/24 07:56 01/22/24 07:56 Medications Medications Current Medications Al Hydroxide/Mg Hydroxide (Magnesium Hydrox/Alum Hydrox 30 Ml Oral.Susp) 30 ml PO Q6H PRN PRN Reason: Heartburn/Nausea Albuterol Sulfate (Albuterol Sulfate 90 Mcg 8 Gm Inhaler) 2 puff INHALE Q4H PRN PRN Reason: Shortness Of Breath Or Wheezing Buspirone HCl (Buspirone Hcl 5 Mg Tablet) 15 mg PO TID [facility] Last Admin: 01/25/24 08:02 Dose: 15 mg Chlorpromazine HCl (Chlorpromazine Hcl 25 Mg Tablet) 75 mg PO TID [facility] Last Admin: 01/25/24 08:01 Dose: 75 mg Clonidine HCl (Clonidine Hcl 0.1 Mg Tablet) 0.1 mg PO BID [facility]; Protocol Last Admin: 01/25/24 08:01 Dose: 0.1 mg Doxycycline Monohydrate (Doxycycline Monohydrate 100 Mg Capsule) 100 mg PO BID [facility] Stop: 01/27/24 09:01 Last Admin: 01/25/24 08:02 Dose: 100 mg Furosemide (Furosemide 20 Mg Tablet) 20 mg PO DAILY [facility]; Protocol Last Admin: 01/25/24 08:01 Dose: 20 mg Gabapentin (Gabapentin 600 Mg Tablet) 600 mg PO TID [facility] Last Admin: 01/25/24 08:01 Dose: 600 mg Hydroxyzine HCl (Hydroxyzine Hcl 25 Mg Tablet) 25 mg PO Q6H PRN PRN Reason: Anxiety Last Admin: 01/24/24 16:36 Dose: 25 mg Ibuprofen (Ibuprofen 400 Mg Tablet) 400 mg PO TID PRN PRN Reason: Pain, Moderate(Pain Scale 4-6) Last Admin: 01/24/24 19:34 Dose: 400 mg Magnesium Hydroxide (Milk Of Magnesia 30 Ml Oral.Susp) 30 ml PO DAILY PRN PRN Reason: Constipation Methadone HCl (Methadone Hcl 20 Mg/2 Ml Oral.Conc) 45 mg PO DAILY [facility] Last Admin: 01/25/24 08:00 Dose: 45 mg Mirtazapine (Mirtazapine 15 Mg Tablet) 15 mg PO BEDTIME [facility] Last Admin: 01/24/24 20:17 Dose: 15 mg Nicotine (Nicotine 21 Mg Patch.Td24) 21 mg TRANSDERMA DAILY [facility] Last Admin: 01/25/24 08:02 Dose: 21 mg Nicotine Polacrilex (Nicotine Polacrilex 2 Mg Gum) 4 mg BUCCAL Q2H PRN PRN Reason: Nicotine Cravings Last Admin: 01/25/24 08:02 Dose: 4 mg Nystatin (Nystatin Cream 15 Gm Tube) 1 appl TOPICAL BID [facility]; Protocol Last Admin: 01/25/24 08:06 Dose: Not Given Omeprazole (Omeprazole 20 Mg Capsule.) 20 mg PO DAILY@0630 [facility] Last Admin: 01/25/24 05:50 Dose: 20 mg Prazosin HCl (Prazosin Hcl 1 Mg Capsule) 3 mg PO BEDTIME [facility]; Protocol Last Admin: 01/24/24 20:24 Dose: 3 mg Trazodone HCl (Trazodone Hcl 25 Mg Halftab) 75 mg PO BEDTIME PRN PRN Reason: Insomnia Last Admin: 01/24/24 20:18 Dose: 75 mg Triamcinolone Acetonide (Triamcinolone Acet 0.1 % Cream 15 Gm Tube) 1 appl TOPICAL BID [facility]; Protocol Last Admin: 01/25/24 08:06 Dose: Not Given Allergies Allergies Allergy/AdvReac Type Severity Reaction Status Date / Time amoxicillin [AMOXICILLIN] Allergy Unknown HIVES Verified 01/19/24 07:16 Assessment & Plan Assessment & Plan (1) Bipolar 2 disorder, major depressive episode: Status: Acute Code(s): F31.81 - Bipolar II disorder (2) Opioid use disorder, moderate, dependence: Status: Acute Code(s): F11.20 - Opioid dependence, uncomplicated (3) Cocaine use disorder: Status: Acute Code(s): F14.10 - Cocaine abuse, uncomplicated Plan Mr. Abad is a 38 year-old with hx of Bipolar 2 disorder opioid and cocaine use disorder who called EMS [place] [facility] [place] to [place], SI with plan to OD on IV heroin, recently relapsed on cocaine and opioids after he left [facility] program. We discussed risks, benefits and alternative treatment options. continue current medications. PLAN 01/19- hospitalist consult for left foot infection. continue other medications. 01/21: Continue current treatment and plan 01/22: Continue current regimen and plans. Lasix 20 mg daily added. 01/23 added clonidine 0.1mg po BID for anxiety. we discussed risks of adding benzos as he continues to work on recovery. 01/24: Social with peers. pacing unit hallway while listening to music on unit headphones. Pt reports feeling okay but anxious ; pt stated, I'm worried about not knowing where I'm going to go from here. My is supposed to give in the next 2 weeks but at least she is at a program . Pt denies SI/HI/VH/AH. continue current tx plan. Patient educated on: diagnosis and medication risk/benefits Informed Consent: understands Reason for continued inpatient stay Substantial Risk for: med/psych decompensation Time Spent With Patient Time: Total time managing care of this patient today _20___ minutes.
[2024-01-25] MEDS: Ibuprofen 400 MG TABLET PO (17:15)
[2024-01-25] MEDS: hydrOXYzine HCL 25 MG TABLET PO (18:56)
[2024-01-25 20:00] VITALS: BP 140/82; PULSE 96; RESP 18; TEMP 36.6; O2SAT 96
[2024-01-25] MEDS: traZODone HCL 25 MG HALFTAB 75 MG PO (20:03)
[2024-01-25] MEDS: Triamcinolone Acet 0.1 % Cream 15 GM TUBE 1 APPL TOPICAL (20:03)
[2024-01-25] MEDS: Mirtazapine 15 MG TABLET PO (20:04)
[2024-01-25] MEDS: Prazosin HCL 1 MG CAPSULE 3 MG PO (20:04)
[2024-01-26] MEDS: Omeprazole 20 MG CAPSULE.DR PO (05:14)
[2024-01-26] MEDS: Nicotine Polacrilex 2 MG GUM 4 MG BUCCAL ×3 (05:14→09:44)
[2024-01-26] MEDS: Ibuprofen 400 MG TABLET PO (06:45)
[2024-01-26] MEDS: hydrOXYzine HCL 25 MG TABLET PO (06:45)
--- NOTE | 2024-01-26 06:46 | PC.NURSE ---
Patient reporting left foot pain 5/10, given ibuprofen PO prn. Patient also reporting mild anxiety, given Atarax PO prn.
[2024-01-26 08:00] VITALS: BP 129/90; PULSE 96; RESP 16; TEMP 36.5; O2SAT 97
[2024-01-26] MEDS: methADONE HCl 20 MG/2 ML ORAL.CONC 45 MG PO (08:02)
[2024-01-26] MEDS: busPIRone HCl 5 MG TABLET 15 MG PO (08:03)
[2024-01-26] MEDS: chlorproMAZINE HCl 25 MG TABLET 75 MG PO (08:03)
[2024-01-26 08:04] VITALS: BP 129/70
[2024-01-26] MEDS: Doxycycline Monohydrate 100 MG CAPSULE PO (08:04)
[2024-01-26] MEDS: Furosemide 20 MG TABLET PO (08:04)
[2024-01-26] MEDS: Gabapentin 600 MG TABLET PO (08:04)
[2024-01-26 08:05] VITALS: BP 129/60
[2024-01-26] MEDS: cloNIDine HCL 0.1 MG TABLET PO (08:05)
[2024-01-26] MEDS: Nicotine 21 MG PATCH.TD24 TRANSDERMA (08:05)
[2024-01-26] MEDS: Naloxone HCl Nasal TAKE HOME 4 MG SPRAY 8 MG NOSTRILALT (09:46)
--- NOTE | 2024-01-26 09:58 | P.DS_ITS ---
DS: Providers Provider Date of Service: 01/26/24 Date of admission: 01/19/24 12:50 Date of discharge: 01/26/24 Primary care physician: Derek Physician Admitting clinician: Pat Urias Attending physician on admission: Colin Ellison Consults: 01/20/24 09:04 Consult to Hospitalist Routine Comment: Consulting Provider: Hospitalist Reason For Exam: left foot cellulitis Attending physician on discharge: Vineet Cardona Discharging clinician: Daphney Shaw DS: Diagnosis Discharge Diagnosis (1) Bipolar 2 disorder, major depressive episode: Status: Acute (2) Opioid use disorder, moderate, dependence: Status: Acute (3) Cocaine use disorder: Status: Acute DS: Medications Discharge Medications Home Medications: Home Medications ?Medication ?Instructions ?Recorded ?Confirmed chlorpromazine 25 mg tablet 75 mg PO TID 01/19/24 01/19/24 methadone 10 mg/mL oral 45 mg PO DAILY 01/19/24 01/19/24 concentrate (Methadone Intensol) mirtazapine 15 mg tablet 15 mg PO BEDTIME 01/19/24 01/19/24 nicotine (polacrilex) 4 mg gum 4 mg PO Q2H 01/19/24 01/19/24 nicotine 21 mg/24 hr daily 1 patch topical DAILY 01/19/24 01/19/24 transdermal patch trazodone 50 mg tablet 75 mg PO BEDTIME PRN Insomnia 01/19/24 01/19/24 Previous Rx's ?Medication ?Instructions ?Recorded albuterol sulfate 90 mcg/actuation 2 puff inhalation Q4H PRN 11/11/23 aerosol inhaler Shortness Of Breath Or Wheezing 30 days #1 inhaler buspirone 15 mg tablet 15 mg PO TID 30 days #90 tabs 11/11/23 gabapentin 600 mg tablet 600 mg PO TID 30 days #90 tabs 11/11/23 omeprazole 20 mg capsule,delayed 20 mg PO DAILY 30 days #30 caps 11/11/23 release prazosin 1 mg capsule 3 mg PO BEDTIME 30 days #90 caps 11/11/23 clonidine HCl 0.1 mg tablet 0.1 mg PO BID 30 days #60 tabs 01/26/24 doxycycline monohydrate 100 mg 100 mg PO BID 1 day #2 caps 01/26/24 capsule nystatin 100,000 unit/gram topical 1 appl topical BID 30 days #15 01/26/24 cream grams triamcinolone acetonide 0.1 % 1 appl topical BID 30 days #15 01/26/24 topical cream grams Mental Status Exam Mental Status Exam Narrative: Pt is alert and oriented; behavior is cooperative and calm; dressed in casual attire; mood is described as good ; eye contact appropriate; Speech is normal rate, volume and prosody and not pressured; thought process is organized and goal directed; Thought content is on tx; otherwise pertinent to relevant topics and without any delusional content, paranoid ideations or grandiosity; denies SI/HI/VH/AH. Data Data Completed and Pending Completed studies during hospitalization [Text1]: 01/22/24 07:56 WBC 5.9 RBC 4.36 L Hgb 13.7 L D Hct 38.9 L MCV 89.2 MCH 31.4 MCHC 35.2 RDW 12.3 Plt Count 256 MPV 10.4 Immature Gran % (Auto) 1.4 H Neut % (Auto) 47.3 Lymph % (Auto) 34.0 [place] % (Auto) 11.9 H Eos % (Auto) 4.9 H Baso % (Auto) 0.5 Lymph # (Auto) 2.0 [place] # (Auto) 0.7 Eos # (Auto) 0.3 Baso # (Auto) 0.0 Abs Immat Gran (auto) 0.08 H Absolute Neuts (auto) 2.8 Absolute Nucleated RBC 0.000 Nucleated RBC % (auto) 0.0 Sodium 138 Potassium 4.7 Chloride 107 Carbon Dioxide 21 L Anion Gap 15 BUN 13 Creatinine 0.68 Estim Creat Clear Calc 208.1 Estimated GFR > 60 Fasting Glucose 102 H Estimat Average Glucose 105 Hemoglobin A1c % 5.3 Calcium 9.2 Total Bilirubin 0.3 AST 67 H ALT 125 H Alkaline Phosphatase 102 Total Protein 7.1 Albumin 3.4 L Triglycerides 103 Cholesterol 146 LDL Cholesterol, Calc 83 HDL Cholesterol 43 Vitamin B12 485 Folate 9.9 TSH TNP DS: Summary Hospital Course Hospital Course: Mr. Abad is a 38 year-old male with hx of MDD, opioid and cocaine use disorder who called EMS and was brought to [facility] ED due to increase depression and SI with plan to OD on IV heroin. In the ED, his utox was positive for opioid, fentanyl, mehtadone and cocaine. Pt was recently discharged from back in 11/2023 and stepped down to residential substance use treatment program. On the unit, pt presented as somewhat somnolent. He reported he was at [facility] in [place]. He reported he did not like his peers nor the staff and he left two days prior to presenting to the ED. He reported he tried to OD on IV heroin as suicide attempt but states he actually did not, although he did relapse on heroin and cocaine after at least 3-4 weeks of sobriety. He denies VH/AH. He reports sleep is poor for the past 3 days. Mr. Abad is a 38 year-old male with hx of Bipolar Disorder, opioid and cocaine use disorder who called EMS was brought to [facility] ED due to increase depression, recent relapsed after he left [facility] program with suicidal ideation with plan to OD on IV heroin. Utox positive for heroin, fentanyl, cocaine and methadone. We discussed risks, benefits and alternative treatment options. Continue current medications. monitor oversedation. PLAN 1. Admit to , CV, 15 minutes checks for safety. 2. continue current medications 3. aftercare planning. hospitalist consult for left foot infection. continue other medications. Continue current regimen and plans. Lasix 20 mg daily added. added clonidine 0.1mg po BID for anxiety. we discussed risks of adding benzos as he continues to work on recovery. Social with peers. pacing unit hallway while listening to music on unit headphones. Pt reports feeling okay but anxious ; pt stated, I'm worried about not knowing where I'm going to go from here. My is supposed to give in the next 2 weeks but at least she is at a program . Pt denies SI/HI/VH/AH. Patient reports feeling good today; pt stated, I feel ready to go. I was able to get a bed [facility] [place]. I have some friends who work at [facility] and they were able to get me placed . Pt reports he plans on following up with outpatient providers. denies SI/HI/VH/AH. Time spent discussing smoking cessation with patient: 3 to 10 minutes Status at Discharge Cognitive/behavioral status at discharge: Patient was interviewed prior to discharge and found to be fully oriented and without any SI or HI. Patient has insight and demonstrates good judgment in terms of wanting to pursue treatment. Patient has a safety plan that includes presenting to the closest ER or calling 911 if feeling unsafe. Functional status at discharge: independent ambulation Overall status at discharge: patient is back to baseline Time Spent with Patient Time attestation: Total time managing care of this patient today _20___ minutes. Time spent: Less than 30 minutes Discharge Plan Discharge Anticipated Discharge Date/Time: 01/26/24 11:45 Patient Disposition: Home, Self-Care Discharge Diagnosis: Bipolar d/o, cocaine use d/o, opioid use d/o Referrals: Therapy & Psychiatry [Other] - 1 Week (*Please present to the agency listed above, Wednesday through Wednesday during the hours of 8am and 8pm, in order to obtain outpatient mental health providers. ) [facility] [Provider Group] - 1 Week Discharge Medications: New nystatin 100,000 unit/gram Cream 1 appl topical BID 30 Days Qty: 15 0RF Protocol: Apply to: Apply to: rash on thighs triamcinolone acetonide 0.1 % Cream 1 appl topical BID 30 Days Qty: 15 0RF Protocol: Apply to: Apply to: face doxycycline monohydrate 100 mg Capsule 100 mg PO BID 1 Days Qty: 2 0RF clonidine HCl 0.1 mg Tablet 0.1 mg PO BID 30 Days Qty: 60 0RF Protocol: Hold for SBP< HOLD for SBP < : 90 Continued prazosin 1 mg Capsule 3 mg PO BEDTIME 30 Days Qty: 90 0RF Protocol: Hold for SBP< HOLD for SBP < : 90 buspirone 15 mg tablet 15 mg PO TID 30 Days Qty: 90 0RF gabapentin 600 mg tablet 600 mg PO TID 30 Days Qty: 90 0RF omeprazole 20 mg capsule,delayed release(DR/EC) 20 mg PO DAILY 30 Days Qty: 30 0RF albuterol sulfate 90 mcg/actuation HFA aerosol inhaler 2 puff inhalation Q4H PRN (Reason: Shortness Of Breath Or Wheezing) 30 Days Qty: 1 0RF chlorpromazine 25 mg tablet 75 mg PO TID mirtazapine 15 mg tablet 15 mg PO BEDTIME nicotine (polacrilex) 4 mg gum 4 mg PO Q2H nicotine 21 mg/24 hr patch 24 hour 1 patch topical DAILY trazodone 50 mg tablet 75 mg PO BEDTIME PRN (Reason: Insomnia) methadone [Methadone Intensol] 10 mg/mL Concentrate 45 mg PO DAILY Discontinued aripiprazole [Abilify] 20 mg Tablet 20 mg PO BEDTIME 30 Days Qty: 30 0RF cyclobenzaprine 5 mg tablet 5 mg PO TID PRN (Reason: Pain) Discharge Orders: Discharge Order (Routine); Ordered 01/26/24 Ordered By: Daphney Shaw Diet: Regular diet Activity on Discharge: As tolerated Stand Alone Forms: Patient Portal Discharge page, Community Support Print Language: Indonesian Care Plan Goals: Maintain mood and safe behaviors Take medications as prescribed Continue to pursue sobriety Practice coping skills Continue with outpatient providers and reach out to them as needed Health Concerns: Mood stability and behaviors Sobriety Plan of Treatment: Follow up with your PCP, psychiatric provider and other outpatient providers regarding above concerns Take medications as prescribed Assessment: Patient was interviewed prior to discharge and found to be fully oriented and without any SI or HI. Patient has insight and demonstrates good judgment in terms of wanting to pursue treatment. Patient has a safety plan that includes presenting to the closest ER or calling 911 if feeling unsafe. Discharge Date/Time: 01/26/24 10:50
== END 2024-01-26 10:50 | disposition home or self-care (01) | DRG 753 ==
LOC: HO.ED 10:20 → HO.PADLT16 13:22
PROVIDERS: Admitting Provider Social Worker; Emergency Provider Emergency Medicine; Responsible Provider Registered Nurse; Visit Provider Psychiatry & Neurology Psychiatry
DX: F31.81 Bipolar II disorder (principal); R45.851 Suicidal ideations; F11.20 Opioid dependence, uncomplicated; F14.10 Cocaine abuse, uncomplicated; F43.10 Post-traumatic stress disorder, unspecified; F17.210 Nicotine dependence, cigarettes, uncomplicated; L08.9 Local infection of the skin and subcutaneous tissue, unspecified; Z59.02 Unsheltered homelessness; Z71.6 Tobacco abuse counseling; Z79.899 Other long term (current) drug therapy
CPT/HCPCS: 36415; 80053; 80061; 80307; 81001; 82607; 82746; 83036; 84443; 85025; 93005; 99285; S9485

== ENCOUNTER → 2024-01-19 08:06 | Outpatient (BNV) | payer MEDICAID, SELFPAY | PROVIDERS: Emergency Provider Emergency Medicine; Visit Provider Internal Medicine Cardiovascular Disease | DX: I45.81 Long QT syndrome (principal) | CPT/HCPCS: 93010 ==

== ENCOUNTER → 2024-01-19 12:50 | Outpatient (BNV) | payer OTHER, SELFPAY | PROVIDERS: Admitting Provider Social Worker; Emergency Provider Emergency Medicine; Visit Provider Social Worker | DX: F31.81 Bipolar II disorder (principal); F14.10 Cocaine abuse, uncomplicated; F11.20 Opioid dependence, uncomplicated | CPT/HCPCS: 99231; 99232 ==

== ENCOUNTER 2025-02-17 18:19 | Emergency (ER) | payer MEDICAID, SELFPAY ==
--- NOTE | ~2025-02-17 | XR_ITS ---
CLINICAL HISTORY: pain after fall 3 view right shoulder Comparison: None Findings: Normal congruency of the glenohumeral joint. AC joint arthrosis and probable chronic deformity. No acute fractures or bony erosions. No greater tuberosity cysts. Normal bone mineralization and soft tissues. No radiopaque foreign body. Normal visualized right chest. Probable discoid atelectasis lung apices. Impression: 1. No acute fracture, subluxations or dislocations right shoulder. 2. Significant AC joint arthrosis and probable chronic deformity. This document has been electronically signed by: Ozzy Marie MD on 02/17/2025 19:11:18
--- NOTE | 2025-02-17 18:21 | ED_ITS ---
HPI - General Adult General Chief complaint: Extremity Problem Stated complaint: rt should dislocation? Time Seen by Provider: 02/17/25 18:47 Source: patient, RN notes reviewed and old records reviewed Mode of arrival: ambulatory Limitations: no limitations History of Present Illness ED Provider: Kylie LOMBARDO narrative: 40-year-old male with past medical history significant for polysubstance abuse, previous TBI, PTSD presents for evaluation of right shoulder pain. Patient reports he has had pain for the last 2 days. He states that a few days ago he was moving a mattress, he does not that remember injuring himself during that but his sister told him he was complaining about shoulder pain Yesterday he fell in the shower and landed on his right side He reports he has limited pain at rest but when he tries to lift his right arm up he has severe pain in the front of the right shoulder He is unsure if his right shoulder is hanging lower in the left side and he is concerned about a dislocation Denies any other injuries Related Data Home Medications ?Medication ?Instructions ?Recorded ?Confirmed chlorpromazine 25 mg tablet 75 mg PO TID 01/19/24 01/19/24 methadone 10 mg/mL oral 45 mg PO DAILY 01/19/24 01/19/24 concentrate (Methadone Intensol) mirtazapine 15 mg tablet 15 mg PO BEDTIME 01/19/24 01/19/24 nicotine (polacrilex) 4 mg gum 4 mg PO Q2H 01/19/24 01/19/24 nicotine 21 mg/24 hr daily 1 patch topical DAILY 01/19/24 01/19/24 transdermal patch trazodone 50 mg tablet 75 mg PO BEDTIME PRN Insomnia 01/19/24 01/19/24 Previous Rx's ?Medication ?Instructions ?Recorded albuterol sulfate 90 mcg/actuation 2 puff inhalation Q4H PRN 11/11/23 aerosol inhaler Shortness Of Breath Or Wheezing 30 days #1 inhaler buspirone 15 mg tablet 15 mg PO TID 30 days #90 tabs 11/11/23 gabapentin 600 mg tablet 600 mg PO TID 30 days #90 tabs 11/11/23 omeprazole 20 mg capsule,delayed 20 mg PO DAILY 30 days #30 caps 11/11/23 release prazosin 1 mg capsule 3 mg PO BEDTIME 30 days #90 caps 11/11/23 clonidine HCl 0.1 mg tablet 0.1 mg PO BID 30 days #60 tabs 01/26/24 doxycycline monohydrate 100 mg 100 mg PO BID 1 day #2 caps 01/26/24 capsule nystatin 100,000 unit/gram topical 1 appl topical BID 30 days #15 01/26/24 cream grams triamcinolone acetonide 0.1 % 1 appl topical BID 30 days #15 01/26/24 topical cream grams ibuprofen 600 mg tablet 600 mg PO Q6H PRN pain #20 tabs 02/17/25 tramadol 50 mg tablet 50 mg PO Q6H PRN severe pain 02/17/25 (scale score 7-10) #8 tabs Allergies Allergy/AdvReac Type Severity Reaction Status Date / Time amoxicillin [AMOXICILLIN] Allergy Unknown HIVES Verified 02/17/25 18:23 Review of Systems Constitutional: Constitutional: Denies headache(s) ENT: Denies headache(s) Musculoskeletal: Musculoskeletal: Reports arthralgias, Reports joint swelling and Reports limited range of motion Neurologic: Denies headache(s) [facility] Past Medical History Medical History Polysubstance use disorder Hypertension Bipolar 2 disorder, major depressive episode TBI (traumatic brain injury) PTSD (post-traumatic stress disorder) Surgical History History of mandibular surgery Family History Family History Other No pertinent family history Social History Social History Household Members: None Household Members Other:: homeless Housing: Other Housing Other:: Sober house Do you presently have visiting nurse or other home services: No Alcohol intake: current Alcohol intake frequency: 3 or more drinks per day Alcohol type: beer and hard liquor Comment: 1:1 in room Patient Tobacco Use Status: Current everyday Tobacco user Tobacco use type: Cigarette Cigarette Packs Per Day: 1.5 Cigarettes Per Day: 30.0 Years Smoked: 27 e-Cigarette/Vaping Use: Never Used Second Hand Smoke Exposure: No Substance Use Type: Heroin Advance Directives: No Advance Directives Information Provided: No service: No Sexual orientation: Straight/Heterosexual Physical Exam ED Vital Signs: Vital Signs - 24 hr 02/17/25 18:22 02/17/25 18:56 Temperature 97.7 F 99 F Pulse Rate 98 96 Respiratory Rate 18 19 Blood Pressure 166/81 H 132/74 Pulse Oximetry 98 96 Oxygen Delivery Method Room Air Room Air BMI result Body Mass Index 32.8 Const General: healthy appearing, comfortable, no acute distress, alert and awake Nutritional Appearance: well nourished Orientation/consciousness: patient oriented x3 HENMT Head: Yes normocephalic and Yes atraumatic Eyes Eyelids: Yes eyelids normal Conjunctivae: conjunctivae normal Sclerae: sclerae normal Corneas: corneas normal Pupils: Equal, round and reactive pupils present EOM: EOMs intact bilaterally Neck Neck: Yes full ROM Resp Effort & Inspection: normal respiratory effort, able to speak in complete sentences and not labored Skin General skin exam: elasticity normal Neuro General: patient oriented x3 Cranial nerves: Yes Equal, round and reactive pupils present and Yes Bilaterally intact EOM present Cognition (Neuro): normal cognition Extrem Other: There is significant tenderness in the right acromioclavicular joint and anterior right shoulder. There is no significant right posterior shoulder tenderness. He is able to abduct his right shoulder up to about 90? before having significant pain. There was no obvious visual or palpable deformity Course Course Course Narrative: This is a rapid medical exam performed by Fritz Monroe NP: Additional HPI, ROS, PE not included below will be deferred to primary provider. Patient is a 40-year-old right hand dominant male with history of TBI, polysubstance use disorder, PTSD, bipolar 2 disorder presenting with complaint of right shoulder pain after a fall in the shower two days ago. Plan: x-ray Medical Decision Making Medical Decision Making MDM Narrative: 40-year-old male presents for evaluation of right shoulder pain after injuring it while falling yesterday. His x-ray is negative for acute findings. He has severe arthropathy and a questionable chronic deformity. 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 He has no significant posterior shoulder tenderness, lower suspicion for rotator cuff injury. The patient be placed in a sling and given analgesia and he will follow up with Orthopedics. Differential Diagnosis Differential Diagnoses: The differential diagnosis associated with the prese ntation includes Right shoulder pain Arthropathy Rotator cuff tear AC joint separation Shoulder dislocation Independent Interpretation I performed an independent interpretation of an: Plain X-Ray Interpretation: Agree with Radiology interpretation, no obvious fracture or dislocate Radiology Impression Discussion of test interpretation with radiology: I have reviewed the radiologist's reading. Radiologist Impression: Findings: Normal congruency of the glenohumeral joint. AC joint arthrosis and probable chronic deformity. No acute fractures or bony erosions. No greater tuberosity cysts. Normal bone mineralization and soft tissues. No radiopaque foreign body. Normal visualized right chest. Probable discoid atelectasis lung apices. Impression: 1. No acute fracture, subluxations or dislocations right shoulder. 2. Significant AC joint arthrosis and probable chronic deformity. This document has been electronically signed by: Ozzy Marie MD on 02/17/2025 19:11:18 Discharge Plan Discharge Clinical Impression: Acute pain of right shoulder Patient Disposition: Home, Self-Care Instructions: Shoulder Pain (ED) Additional Instructions: Your x-ray did not show any dislocation or acute fracture. You have severe arthritis of the right shoulder and a possible chronic deformity from an old injury Use ibuprofen/Tylenol for pain. You may use tramadol for more severe breakthrough pain. Do not drink alcohol or drive after taking it, as this may make you drowsy You may use the sling throughout the day, but do not wear it overnight Follow up with Orthopedics at the number provided Prescriptions: New ibuprofen 600 mg tablet 600 mg PO Q6H PRN (Reason: pain) Qty: 20 0RF tramadol 50 mg tablet 50 mg PO Q6H PRN (Reason: severe pain (scale score 7-10)) Qty: 8 0RF No Action prazosin 1 mg Capsule 3 mg PO BEDTIME 30 Days Qty: 90 0RF Protocol: Hold for SBP< HOLD for SBP < : 90 buspirone 15 mg tablet 15 mg PO TID 30 Days Qty: 90 0RF gabapentin 600 mg tablet 600 mg PO TID 30 Days Qty: 90 0RF omeprazole 20 mg capsule,delayed release(DR/EC) 20 mg PO DAILY 30 Days Qty: 30 0RF albuterol sulfate 90 mcg/actuation HFA aerosol inhaler 2 puff inhalation Q4H PRN (Reason: Shortness Of Breath Or Wheezing) 30 Days Qty: 1 0RF chlorpromazine 25 mg tablet 75 mg PO TID mirtazapine 15 mg tablet 15 mg PO BEDTIME nicotine (polacrilex) 4 mg gum 4 mg PO Q2H nicotine 21 mg/24 hr patch 24 hour 1 patch topical DAILY trazodone 50 mg tablet 75 mg PO BEDTIME PRN (Reason: Insomnia) methadone [Methadone Intensol] 10 mg/mL Concentrate 45 mg PO DAILY nystatin 100,000 unit/gram Cream 1 appl topical BID 30 Days Qty: 15 0RF Protocol: Apply to: Apply to: rash on thighs triamcinolone acetonide 0.1 % Cream 1 appl topical BID 30 Days Qty: 15 0RF Protocol: Apply to: Apply to: face doxycycline monohydrate 100 mg Capsule 100 mg PO BID 1 Days Qty: 2 0RF clonidine HCl 0.1 mg Tablet 0.1 mg PO BID 30 Days Qty: 60 0RF Protocol: Hold for SBP< HOLD for SBP < : 90 Print Language: Macedonian
[2025-02-17 18:22] VITALS: BP 166/81; PULSE 98; RESP 18; TEMP 36.5; O2SAT 98; BMI 32.8
[2025-02-17 18:56] VITALS: BP 132/74; PULSE 96; RESP 19; TEMP 37.2; O2SAT 96
[2025-02-17] MEDS: traMADoL HCL 50 MG TABLET PO (20:40)
== END 2025-02-17 21:07 | disposition home or self-care (01) ==
PROVIDERS: Emergency Provider Internal Medicine; PCP Internal Medicine
DX: M25.511 Pain in right shoulder (principal); F19.10 Other psychoactive substance abuse, uncomplicated
CPT/HCPCS: 73030; 99283; 99284

== ENCOUNTER → 2025-02-17 18:24 | Outpatient (BNV) | payer MEDICAID, SELFPAY | PROVIDERS: PCP Internal Medicine; Visit Provider Radiology Diagnostic Radiology | DX: M25.511 Pain in right shoulder (principal) | CPT/HCPCS: 73030 ==

== ENCOUNTER 2025-03-16 23:11 | Inpatient (IN) | payer OTHER, SELFPAY ==
--- OUTSIDE RECORDS SUMMARY | 2025-02-01 09:30 | XMS_ITS ---
Author Organization [facility] Address [address] [place] [id number] Care Team Providers Care Acetylene Operator Name Role Phone Milo Joshi Primary Care Provider [phone] Melanie Monge Unavailable [phone] REASON FOR VISIT PHONE: med mgt Medications Medication SIG (Take, Route, Frequency, Duration) Notes Start Date End Date Status phentermine 15 mg 1 cap(s) orally once a day (in the morning) for 30 days 09/14/2024 Not-Taking Dulera 5 mcg-200 mcg/inh 2 puff(s) inhal ed 2 times a day for 30 days 02/07/2024 Active acetaminophen 500 mg 2 tab(s) orally every 6 hours for 20 days prn headache 11/14/2024 Active omeprazole 40 mg 1 cap(s) orally once a day for 30 days 02/07/2024 Active albuterol 90 mcg/inh 2 puff(s) inhaled every 6 hours for 30 days As needed 02/07/2024 Active gabapentin 300 mg 2 caps orally 3 time s a day for 30 days Active hydrOXYzine hydrochloride 50 mg 1 tab(s) orally 3 times a day as needed for anxiety for 30 days Active methadone 5 mg 80 mg orally daily Active prazosin 2 mg 1 cap(s) orally at bedtime for nightmares for 30 days Active chlorproMAZINE 10 mg 1 tab(s) orally 2 times a day as needed for severe anxiety, agitation, insomnia for 30 days Active mirtazapine 7.5 mg 1 tab orally once a day at bedtime as needed for insomnia for 30 days Active lurasidone 20 mg 1 tab(s) orally take once a day in evening with 350 calories for 30 days Active Social History Sex Assigned At : Social History Observation Description Sex Assigned At Male Encounters Encounter Location Date Provider Diagnosis [facility] [address] [facility] [place] [phone] 02/01/2025 Melanie Monge Plan Of Treatment No Information Progress Notes * Rey TRANDOB:[birth year] (40 yo M)Acc No.[id number]:02/01/2025 Progress Notes Patient: Rey THORNTON Provider: Lizeth Monge PMHNP- :1985 A ge:40 Y S ex:Male Date:02/01/2025 Address:[address] [place] [address] [phone] Pcp:Milo Joshi Subjective: * Chief Complaints: * 1 . [facility] * Medical History: * Medications: T aking lurasidone 20 mg tablet 1 tab(s) orally take once a day in evening with 350 calories , Taking mirtazapine 7.5 mg tablet 1 tab orally once a day at bedtime as needed for insomnia , Taking hydrOXYzine hydrochloride 50 mg tablet 1 tab(s) orally 3 times a day as needed for anxiety , Taking gabapentin 300 mg capsule 2 caps orally 3 times a day , Taking chlorproMAZINE 10 mg tablet 1 tab(s) orally 2 times a day as needed for severe anxiety, agitation, insomnia , Taking prazosin 2 mg capsule 1 cap(s) orally at bedtime for nightmares , Taking methadone 5 mg tablet 80 mg orally daily , Taking Dulera 5 mcg-200 mcg/inh aerosol 2 puff(s) inhaled 2 times a day , Taking albuterol 90 mcg/inh aerosol 2 puff(s) inhaled every 6 hours As needed, Taking omeprazole 40 mg delayed release capsule 1 cap(s) orally once a day , Taking acetaminophen 500 mg tablet 2 tab(s) orally every 6 hours prn headache, Not-Taking/PRN phentermine 15 mg capsule 1 cap(s) orally once [...] border-collapse:collapse; position:relative; width:99%; margin-left: 1px; table-layout:fixed; word-break:break-word; -yg-kvan-jinq:break-word; class= avcug-px-tegaa-table ><tbody><tr><td style="border: 0.5px solid; paddinpx; width:100px; min-width:100px; [...] width:100px; min-width:100px; box-sizing:border-box; font-size:13.33px; min- height: 20px; ><content>[id number]</content></td><td style= border: 0.5px solid; paddinpx; width:100px; min-width:100px; box-sizing:border-box; font-size:13.33px; min- height: 20px; ><content>[facility] (1877)</content></td><td style="border: 0.5px solid; paddinpx; width:100px; min-width:100px; box-sizing:border-box; font- size:13.33px; min-height: 20px; >0/2</td></tr></tbody></table><table style= left: -600px !important; border: 0.5px solid; border-collapse:collapse; position:relative; width:99%; margin-left: 1px; table-layout:fixed; word-break:break-word; -nb-utwo-elsl:break-word;" class= tnkhu-fj-qmkjj-table ><tbody><tr><td style= border: 0.5px solid; paddinpx; width:100px; [...] width:100px; min-width:100px; box-sizing:border-box; font-size:13.33px; min- height: 20px; ><content>[id number]</content></td><td style= border: 0.5px solid; paddinpx; width:100px; min-width:100px; box-sizing:border-box; font-size:13.33px; min- height: 20px; ><content>[facility] (1877)</content></td><td style= border: 0.5px solid; paddinpx; width:100px; min-width:100px; box-sizing:border-box; font-size:13.33px; min- height: 20px; >0/2</td></tr></tbody></table>. Assessment: Plan: * Treatment: * Images: Billing Information: * Visit Code: * Procedure Codes: Care Plan Details* * Electronic signature of MIRTHA Feng on 03/16/2025 at 11:35 PM EDT Sign off status: Pending * Provider: MARY Mix- Date: 0 02/01/2025 Generated for Angélica dinh/Toni/eTvesnaitting on: 0 03/16/2025 11:35 PM EDT History and Physical Notes * Examination Category Sub-Category Detail Notes Category Not es Psychiatry MassPat Review as appropriate 4// 51Gabapentin 300 Mg [id number] (1877)0/2
[2025-03-16 23:13] VITALS: BP 151/81; PULSE 110; RESP 16; TEMP 36.8; O2SAT 98; BMI 30.7
[2025-03-16 23:33] VITALS: BP 148/63; PULSE 102; RESP 24; TEMP 37.1; O2SAT 99
--- NOTE | 2025-03-17 00:13 | ED.PSYCH ---
HPI - Psych General Chief Complaint: Psychiatric Symptoms Stated Complaint: Doesn't Feel Safe Time Seen by Provider: 03/16/25 23:33 Source: patient Mode of arrival: ambulatory Limitations: no limitations History of Present Illness ED Provider: Dr. Kanwal Tamayo HPI Narrative: patient comes to the emergency room complaining of depression, suicide attempt by injecting heroin in his neck veins. Patient reports that he recently lost his mother, his kicked him out of the house, he is not allowed to see his daughter. Patient denies HI. Patient states that he has medication is not effective. Related Data Home Medications ?Medication ?Instructions ?Recorded ?Confirmed chlorpromazine 25 mg tablet 10 mg PO BID PRN severe anxiety, 01/19/24 03/17/25 agitation or insomnia mirtazapine 15 mg tablet 7.5 mg PO BEDTIME 01/19/24 03/17/25 hydroxyzine HCl 50 mg tablet 50 mg PO TID PRN anxiety 03/17/25 03/17/25 lurasidone 20 mg tablet 20 mg PO QPM 03/17/25 03/17/25 omeprazole 20 mg capsule,delayed 40 mg PO DAILY 03/17/25 03/17/25 release prazosin 1 mg capsule 2 mg PO BEDTIME 03/17/25 03/17/25 Previous Rx's ?Medication ?Instructions ?Recorded albuterol sulfate 90 mcg/actuation 2 puff inhalation Q4H PRN 11/11/23 aerosol inhaler Shortness Of Breath Or Wheezing 30 days #1 inhaler ibuprofen 600 mg tablet 600 mg PO Q6H PRN pain #20 tabs 02/17/25 Allergies Allergy/AdvReac Type Severity Reaction Status Date / Time amoxicillin (AMOXICILLIN) Allergy Unknown HIVES Verified 03/16/25 23:13 Review of Systems Review of Systems: Constitutional : No Weight loss, No Fever, No Chills, No Night Sweats, No Fatigue, No Malaise ENT/Mouth : No Hearing loss, No Ear Pain, No Nasal Congestion, No Sinus Pain, No Hoarseness, No sore throat, No Rhinorrhea, No Swallowing Difficulty Eyes: No Eye Pain, No Swelling, No Redness, No Foreign Body, No Discharge, No Vision Changes Cardiovascular : No Chest Pain, No SOB, No Dyspnea on Exertion, No Orthopnea, No Edema, No Palpitations Respiratory : No Cough, No Sputum, No Wheezing, No Smoke Exposure, No Dyspnea Gastrointestinal : No Nausea, No Vomiting, No Diarrhea, No Constipation, No abdominal Pain, No Hematochezia, No Melena Genitourinary : no irregular bleeding, No Dysuria, No Urinary Frequency, No Hematuria, No Urinary Incontinence, No Urgency, No Flank Pain, No Urinary Flow Changes, No Hesitancy Musculoskeletal : No joint pain, No Myalgias, No Joint Swelling Skin : No Skin Lesions, No rash Neuro : No Weakness, No Numbness, No Paresthesias, No Loss of Consciousness, No Dizziness, No Headache Psych : Force anxiety, depression, suicide attempt by trying to overdose by injecting heroin into his neck veins, no HI Heme/Lymph: No Bruising, No Bleeding,No Lymphadenopathy Endocrine : No Polyuria, No Polydipsia, No Temperature Intolerance PMFSH Past Medical History Medical History Substance use disorder Depression Polysubstance use disorder Hypertension Bipolar 2 disorder, major depressive episode TBI (traumatic brain injury) PTSD (post-traumatic stress disorder) Surgical History History of mandibular surgery Family History Family History Other No pertinent family history Social History Social History Household Members: None Household Members Other:: homeless Housing: Other Housing Other:: Sober house Do you presently have visiting nurse or other home services: No Alcohol intake: current Alcohol intake frequency: a few times a week Alcohol type: beer and hard liquor Comment: 1:1 in room Patient Tobacco Use Status: Current everyday Tobacco user Tobacco use type: Cigarette Cigarette Packs Per Day: 1.5 Cigarettes Per Day: 30.0 Years Smoked: 27 Smoked in Last 30 Days: Yes e-Cigarette/Vaping Use: Never Used Second Hand Smoke Exposure: No Use of substances other than those prescribed or required for medical reasons: Yes Substance Use Type: Crack/Cocaine and Heroin Substance Use Frequency: Chronic Longstanding Last Used Substance: Hours (ago) Advance Directives: No Advance Directives Information Provided: Yes service: No Sexual orientation: Straight/Heterosexual Physical Exam Vital Signs: Vital Signs: Last Vital Signs Temp 97.5 F 03/19/25 08:44 Pulse 70 03/19/25 08:44 Resp 18 03/19/25 08:44 BP 173/86 H 03/19/25 08:44 Pulse Ox 97 03/19/25 08:44 O2 Del Method Room Air 03/19/25 08:44 BMI result Body Mass Index 30.7 Const: Other: Appearance: Alert. Oriented X3. tearful Eyes: Pupils equal, round and reactive to light. ENT: Pharynx normal. Neck: Normal inspection. Neck supple. No lymph nodes noted. No crepitus CVS: Normal heart rate and rhythm. Pulses normal. Normal S1 and S2 Respiratory: No respiratory distress. Breath sounds normal. No Wheezing. No rales Abdomen: Soft and nontender. No rigidity. No distention. Skin: Skin warm and dry. Normal skin color. Normal skin turgor. Extremities: No lower extremity edema. No Lacerations. No Rash Neuro: Oriented X 3. No motor deficit. No sensory deficit. Moving all extremities. No slurred speech. CN 2 through 12 grossly intact Psych: tearful, crying Course Course Course Narrative: patient is tearful, complaining of SI, no HI, suicide attempt by trying to overdose with IV heroin. Patient tearful, agreeable to take p.o. medications, lorazepam and diphenhydramine. All of patient's labs pending care team consult pending physician observation started at 00:15 Reevaluation(s) Reevaluation #1: Time: 09:27 Date: 03/17/25 Provider: James Birch, DO Patient in physician observation for psychiatric evaluation.? No acute events reported overnight. No current complaints. VS stable.? Patient is in bed search status. Time: 09:27 Reevaluation #2: Time: 11:10 Date: 03/19/25 Provider: Katarzyna Sheridan, DO Patient in physician observation for psychiatric evaluation.? No acute events reported overnight. No current complaints. VS stable.? Patient is in bed search status. Will continue to monitor. Reevaluation #3: Time: 14:29 Date: 03/19/25 Provider: Katarzyna Sheridan DO Physician observation ended at 229pm. Patient to be admitted as inpatient to psychiatry Medications Administered Generic Name Dose Route Start Last Admin Trade Name Freq PRN Reason Stop Dose Admin Chlorpromazine HCl 10 mg 03/17/25 00:22 03/18/25 17:36 Chlorpromazine Hcl 10 Mg Tablet PO 10 mg BID PRN Administration severe anxiety, agitation or insomnia Hydroxyzine HCl 50 mg 03/17/25 00:22 03/19/25 09:27 Hydroxyzine Hcl 50 Mg Tablet PO 50 mg TID PRN Administration Anxiety Lurasidone HCl 20 mg 03/17/25 17:00 03/18/25 17:36 Lurasidone Hcl 20 Mg Tablet PO 20 mg DAILY@1700 PEDRO Administration Mirtazapine 7.5 mg 03/17/25 00:30 03/18/25 20:50 Mirtazapine 7.5 Mg Tablet PO 7.5 mg BEDTIME PEDRO Administration Nicotine Polacrilex 2 mg 03/19/25 13:00 03/19/25 13:27 Nicotine Polacrilex 2 Mg Gum BUCCAL 2 mg Q2H PRN Administration Nicotine Cravings Omeprazole 40 mg 03/17/25 09:00 03/19/25 09:27 Omeprazole 40 Mg Capsule.Dr PO 40 mg DAILY PEDRO Administration Prazosin HCl 2 mg 03/17/25 00:30 03/18/25 20:50 Prazosin Hcl 1 Mg Capsule PO 2 mg BEDTIME PEDRO Administration Protocol Discontinued Medications Generic Name Dose Route Start Last Admin Trade Name Freq PRN Reason Stop Dose Admin Diphenhydramine HCl 50 mg 03/17/25 00:15 03/17/25 01:08 Diphenhydramine Hcl 25 Mg Capsule PO 03/17/25 00:16 50 mg ONCE ONE Administration Ibuprofen 800 mg 03/19/25 00:13 03/19/25 01:25 Ibuprofen 800 Mg Tablet PO 03/19/25 00:14 800 mg ONCE ONE Administration Lorazepam 2 mg 03/17/25 00:15 03/17/25 01:09 Lorazepam 1 Mg Tablet PO 03/17/25 00:16 2 mg ONCE ONE Administration Lorazepam 1 mg 03/18/25 20:37 03/18/25 20:50 Lorazepam 1 Mg Tablet PO 03/18/25 20:38 1 mg ONCE ONE Administration Medical Decision Making Medical Decision Making [facility] Narrative: My interpretation of labs: No significant abnormality in patient's hematology and chemistry, chronically elevated LFTs at baseline, urine toxicology positive for opiates methadone fentanyl benzodiazepines and cocaine, negative for EtOH, serology negative for influenza RSV and COVID Differential Diagnosis Differential Diagnoses: The differential diagnosis associated with the presentation includes ( anxiety, depression, suicide attempt, polysubstance abuse) Admission/Observation Consideration of admission/observation: Escalation of care including admission/observation considered ( patient is on a Section 12, waiting to be seen by the care team) Lab Data 03/17/25 01:06 03/17/25 01:06 Labs: Lab Results 03/17/25 03/17/25 Range/Units 00:06 01:06 WBC 10.1 (4.8-10.8) X10*3/uL RBC 3.83 L (4.60-5.80) X10*6/uL Hgb 12.0 L (14.0-18.0) g/dl Hct 33.7 L (42.0-52.0) % MCV 88.0 (80.0-98.0) fL MCH 31.3 (27.0-33.0) pg MCHC 35.6 (31.0-36.0) g/dl RDW 12.7 (11.0-16.0) % Plt Count 312 (160-400) X10*3/uL MPV 9.1 L (9.4-12.4) fL Absolute Nucleated RBC 0.000 (0.0-0.012) X10*3/uL Nucleated RBC % (auto) 0.0 (0.0-0.2) /100WBC Sodium 135 (135-145) mmol/L Potassium 3.6 D (3.3-5.1) mmol/L Chloride 99 (96-108) mmol/L Carbon Dioxide 29 (22-29) mmol/L Anion Gap 11 L (12-20) BUN 13 (9-16) mg/dL Creatinine 0.76 (0.5-1.4) mg/dL Estim Creat Clear Calc 158.4 Estimated GFR > 60 Random Glucose 99 (60-115) mg/dL Calcium 8.9 (8.4-10.2) mg/dL Total Bilirubin 0.6 (0.0-1.0) mg/dL AST 94 H (5-37) U/L ALT 96 H (0-40) U/L Alkaline Phosphatase 135 H (39-117) U/L Total Protein 7.2 (6.5-8.0) g/dL Albumin 3.6 (3.5-5.0) g/dL Urine Color Dark Yellow Urine Appearance Clear Urine pH 5.5 (5.0-9.0) Ur Specific [place] >= 1.030 H (1.005-1.025) Urine Protein 30 (1+) H (Neg-Trace) mg/dL Urine Glucose (UA) Negative (Negative) mg/dL Urine Ketones Trace (Negative) mg/dL Urine Blood Negative (Negative) Urine Nitrite Negative (Negative) Ur Leukocyte Esterase Trace H (Negative) Urine RBC 0-2 (0-2) /HPF Urine WBC 0-5 (0-5) /HPF Ur Squamous Epith Cells 0-2 (0-2) /HPF Calcium Oxalate Crystal Present Urine Bacteria None Seen (None Seen) Hyaline Casts 3-5 (0-2) /LPF Urine Opiates Screen POSITIVE H (Not Detect) Ur Buprenorphine Scrn Not Detected (Not Detect) ng/mL Ur Oxycodone Screen Not Detected (Not Detect) ng/mL Urine Methadone Screen Positive H (Not Detect) ng/mL Urine Fentanyl Screen POSITIVE H (Not Detect) Ur Barbiturates Screen Not Detected (Not Detect) Ur Phencyclidine Scrn Not Detected (Not Detect) Ur Amphetamines Screen Not Detected (Not Detect) U Benzodiazepines Scrn POSITIVE H (Not Detect) Urine Cocaine Screen POSITIVE H (Not Detect) U Marijuana (THC) Screen Not Detected (Not Detect) Ethyl Alcohol < 10 mg/dL Influenza Type A (PCR) NEGATIVE (Negative) Influenza Type B (PCR) NEGATIVE (Negative) RSV RNA Qual (PCR) NEGATIVE (Negative) SARS-CoV-2 RNA (RT-PCR) NEGATIVE (Negative) Critical Care Time Critical Care Time Critical Care Time: Yes Total Critical Care Time: 40 Attestation: I have personally provided critical care time. Time includes review of lab data, radiology results, discussion with consultants, and monitoring for potential decompensation. Intervention performed as documented. Discharge Plan Discharge Clinical Impression: Suicide attempt, Anxious depression, Polysubstance abuse Patient Disposition: Admitted As Inpatient Interventions: [place]-Suicide Risk Severity Scale Last Done: 03/19/25 00:57 Print Language: Upper Sorbian
[2025-03-17 00:32] LABS: Cannabinoid Screen Urine Not Detected (Not Detect)
[2025-03-17 01:07] LABS: Resp Syncy Virus RNA Qual PCR NEGATIVE (Negative); SARS COV2 PCR INHOUSE NEGATIVE (Negative)
[2025-03-17 01:21] LABS: Hematocrit 33.7 % (42.0-52.0); Hemoglobin 12.0 g/dl (14.0-18.0); Mean Corpuscular HGB Conc 35.6 g/dl (31.0-36.0); Mean Corpuscular Hemoglobin 31.3 pg (27.0-33.0); Mean Corpuscular Volume 88.0 fL (80.0-98.0); NRBC Abs Auto 0.000 X10*3/uL (0.0-0.012); NRBC Pct Auto 0.0 /100WBC (0.0-0.2); Platelet Count 312 X10*3/uL (160-400); Red Blood Count 3.83 X10*6/uL (4.60-5.80); White Blood Count 10.1 X10*3/uL (4.8-10.8)
--- NOTE | 2025-03-17 01:23 | PC.NURSE ---
Addendum entered by Chuck Angulo 03/17/25 01:26: med rec completed using pt Rx medication bottles brought in from home Original Note: pt come in from triage, complaints of SI w/ plan to OD d/t life stressors - kicked out of home by , unable to see daughter- he admits to shooting up heroine into his neck prior to arrival. Pt changed over by security, belongings secured by security and vehicle maintenance technician. Labs drawn, pt medicated per NOV, [address] plan for care team consult in the AM.
[2025-03-17 01:34] LABS: Alanine Aminotransferase 96 U/L (0-40); Albumin Level 3.6 g/dL (3.5-5.0); Alkaline Phosphatase 135 U/L (39-117); Anion Gap 11 (12-20); Aspartate Amino Transferase 94 U/L (5-37); Blood Urea Nitrogen 13 mg/dL (9-16); Calcium 8.9 mg/dL (8.4-10.2); Carbon Dioxide 29 mmol/L (22-29); Chloride 99 mmol/L (96-108); Creatinine Clr Calc Pharmacy 158.4; Estimated Glomerular Filt Rate > 60; Potassium 3.6 mmol/L (3.3-5.1); Sodium 135 mmol/L (135-145); Total Protein 7.2 g/dL (6.5-8.0)
--- NOTE | 2025-03-17 06:59 | PC.NURSE ---
Assumed care of patient at 0645, patient appears to be in no apparent distress this am, sleeping, respirations even and unlabored. Continue plan of care for CARE team hubert
[2025-03-17 07:20] LABS: Appearance Urine Clear; Glucose Urine UA Negative (Negative); PH 5.5 (5.0-9.0); Specific Gravity - Urine >= 1.030 (1.005-1.025); UMIC TRIGGER UA YES
--- NOTE | 2025-03-17 09:16 | MHC.CARE ---
Pt meets the criteria for IPLOC secondary to an intentional OD on illicit substances in a suicide attempt. Section 12a in chart. Provider in agreement.
[2025-03-17 16:07] VITALS: BP 138/84; PULSE 65; RESP 14; TEMP 37.1; O2SAT 99
[2025-03-17 22:41] VITALS: BP 149/76; PULSE 74; RESP 16; TEMP 36.6; O2SAT 97
[2025-03-18 06:50] VITALS: BP 168/90; PULSE 59; RESP 18; TEMP 36.9; O2SAT 98
--- NOTE | 2025-03-18 07:04 | PC.NURSE ---
Assumed care of patient at 0645, patient appears to be sleeping at this time, respirations even and unlabored, no apparent distress is noted. Continue plan of care for IPLOC
--- NOTE | 2025-03-18 08:01 | PHA.MEDREC ---
Pharmacy Consult ? Medication Reconciliation Pharmacy has completed the medication reconciliation. REVIEWED MED REC DONE BY NURSING.
[2025-03-18 17:16] VITALS: BP 150/94; PULSE 102; RESP 16; TEMP 37.1; O2SAT 98
--- NOTE | 2025-03-18 17:18 | PC.NURSE ---
pt reporting agitation and anxiety after being informed he is staying as an inpatient bedsearch. Pt medicated PRN hydroxyzine per NOV, pharmacy also brentoner texted for PRN thorazine dose, awaiting med at this time
--- NOTE | 2025-03-18 18:07 | PC.NURSE ---
Patient reporting feeling like he is withdrawing from alcohol, endorses daily drinking. CIWA score complete with a score of 20, MD Mata made aware at 1807
--- NOTE | 2025-03-18 20:06 | PC.NURSE ---
patient appears to remain at rest presently respirations are even and unlabored patient appears in no distress.
[2025-03-18 20:25] VITALS: BP 148/93; PULSE 90; RESP 18; TEMP 37.1; O2SAT 99
[2025-03-18 20:50] VITALS: BP 148/93
--- NOTE | 2025-03-18 22:54 | PC.NURSE ---
patient came out of room sking for multiple puddings and crackers
[2025-03-19 06:32] VITALS: BP 158/81; PULSE 65; RESP 17; TEMP 37.1; O2SAT 98
--- NOTE | 2025-03-19 08:18 | ECG_ITS ---
Test Reason : medical clearance Blood Pressure : */* mmHG Vent. Rate : 75 BPM Atrial Rate : 78 BPM P-R Int : 138 ms QRS Dur : 92 ms QT Int : 392 ms P-R-T Axes : 63 40 56 degrees QTcB Int : 437 ms Normal sinus rhythm with sinus arrhythmia Normal ECG When compared with ECG of 19-Jan-2024 08:06, No significant change was found Referred By: Kanwal Tamayo Electronically Signed By: AMARI WORTHY
[2025-03-19 08:44] VITALS: BP 173/86; PULSE 70; RESP 18; TEMP 36.4; O2SAT 97
--- NOTE | 2025-03-19 16:07 | HO.PSYADMNOT ---
HPI Date of Service: 03/19/25 Chief Complaint: SI Sources of Information: patient interviewed, chart reviewed and crisis/core team assessment reviewed HPI Subjective Notes: Lerner Warning and Conditional Voluntary Narrative: Patient is a 40-year-old male with history of bipolar disorder, PTSD, opiate use disorder, cocaine use disorder and alcohol use disorder who was brought in by ambulance to ER due to stating he intentionally overdosed on heroin and cocaine in a suicide attempt secondary to life stressors. Per crisis report, patient reported suicidal ideation and reporting he intentionally overdosed on heroin and cocaine in a suicide attempt. Patient reports life stressors with his daughter not speaking with him as well as, his mother passing away recently. Patient reports he is not taking his psychiatric medications at this time. Denies HI/VH/AH. Patient tearful during assessment. History of multiple inpatient psychiatric hospitalizations. History of SA via overdose. History of not following up with treatment recommendations. During admission assessment, patient presents alert and oriented x3. Calm and cooperative. Patient reports feeling anxious and depressed; patient stated, my daughter is not talking to me because I'm dating her mother's best friend. I decided to overdose and when I woke up I called my girlfriend right away and she told me to check into the hospital. I'm not losing her. I regret what I did . Patient reports he has not taken his psychiatric medications in over a month since his mother . Patient stated, I just thought fuck it . Patient reports his outpatient providers are through [facility]. He reports daily alcohol use and states he used heroin and cocaine just that 1 day . He reports he has been off of methadone for the past 2 months. Currently denies SI/HI/VH/AH. Patient would like to be restarted on his home medications and be referred to either respite or a substance abuse program. Past Psychiatric History: Hx of multiple psychiatric inpatient admissions. CSS, detox. Outpt providers through [facility]. Medical Evaluation Reviewed: Yes [facility] Medical History Substance use disorder Depression Polysubstance use disorder Hypertension Bipolar 2 disorder, major depressive episode TBI (traumatic brain injury) PTSD (post-traumatic stress disorder) Surgical History History of mandibular surgery Family History: Mental Health Substance use disorder Uncle suicided Social History: Born in [place]. Pt is an only child. 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 Substance History: utox positive for cocaine, opioids, fentanyl, benzodiazepines and methadone. Trauma History: yes Diagnostics Vital Signs (24Hr): Vital Signs - 24 hr 03/18/25 17:16 03/18/25 20:25 03/18/25 20:50 Temperature 98.8 F 98.7 F Pulse Rate 102 H 90 Respiratory Rate 16 18 Blood Pressure 150/94 H 148/93 H 148/93 H Pulse Oximetry 98 99 Oxygen Delivery Method Room Air Room Air 03/19/25 06:32 03/19/25 08:44 Temperature 98.7 F 97.5 F Pulse Rate 65 70 Respiratory Rate 17 18 Blood Pressure 158/81 H 173/86 H Pulse Oximetry 98 97 Oxygen Delivery Method Room Air Room Air BMI result Body Mass Index 30.7 Labs 03/17/25 01:06 03/17/25 01:06 Meds/Allergies Meds Home Medications ?Medication ?Instructions ?Recorded ?Confirmed ?Type chlorpromazine 25 mg tablet 10 mg PO BID PRN severe anxiety, 01/19/24 03/17/25 History agitation or insomnia mirtazapine 15 mg tablet 7.5 mg PO BEDTIME 01/19/24 03/17/25 History hydroxyzine HCl 50 mg tablet 50 mg PO TID PRN anxiety 03/17/25 03/17/25 History lurasidone 20 mg tablet 20 mg PO QPM 03/17/25 03/17/25 History omeprazole 20 mg capsule,delayed 40 mg PO DAILY 03/17/25 03/17/25 History release prazosin 1 mg capsule 2 mg PO BEDTIME 03/17/25 03/17/25 History Allergies Allergies Allergy/AdvReac Type Severity Reaction Status Date / Time amoxicillin (AMOXICILLIN) Allergy Unknown HIVES Verified 03/16/25 23:13 Mental Status Exam Mental Status Exam Narrative: Pt is alert and oriented; behavior is cooperative and calm; dressed in casual attire; mood is described as anxious and depressed ; eye contact appropriate; Speech is normal rate, volume and not pressured; thought process is organized and goal directed; Thought content is on tx; denies SI/HI/VH/AH. Assessment & Plan Assessment & Plan (1) Bipolar 2 disorder, major depressive episode: Status: Acute Code(s): F31.81 - Bipolar II disorder (2) PTSD (post-traumatic stress disorder): Status: Chronic Code(s): F43.10 - Post-traumatic stress disorder, unspecified (3) Opioid use disorder: Status: Acute Code(s): F11.90 - Opioid use, unspecified, uncomplicated (4) Cocaine use disorder: Status: Acute Code(s): F14.10 - Cocaine abuse, uncomplicated (5) Alcohol use disorder: Status: Acute Code(s): F10.90 - Alcohol use, unspecified, uncomplicated (6) TBI (traumatic brain injury): Status: Chronic Code(s): S06.9X9A - Unspecified intracranial injury with loss of consciousness of unspecified duration, initial encounter Plan Patient is a 40-year-old male with history of bipolar disorder, PTSD, opiate use disorder, cocaine use disorder and alcohol use disorder who was brought in by ambulance to ER due to stating he intentionally overdosed on heroin and cocaine in a suicide attempt secondary to life stressors. Plan: CV 15 minute safety checks CIWA protocol Continue home medications Obtain collateral Referral to outpatient psychiatric providers Encourage groups Referral to substance abuse program or respite Discharge planning Patient educated on: diagnosis and medication risk/benefits Reason for continued inpatient stay Substantial Risk for: harm to self and med/psych decompensation Statement Statement: I have reviewed the history and physical and performed a pertinent examination on my patient. No changes have occurred unless specified. If the History and Physical was not performed prior to admission, the Hospitalist's service will be consulted for completing the admission physical. Time Spent With Patient Time: Total time managing care of this patient today _60___ minutes.
--- NOTE | 2025-03-19 18:36 | PC.ADMIT ---
Rey Abad is a 40 y/o male admitted to at 14:43 from [facility] Pod, pt signed CV on admission to unit, for treatment of unspecified depression with SI.? Leading up to admission he attempted to take their life by overdosing on heroin, pt also took cocaine in conjunction.? Pt is alert and oriented x4, calm and cooperative.? Mood is depressed with a broad affect.? Pt denies AVH, reports feeling ?pins and needles? over his body.? Pt does not appear internally preoccupied or responding to internal stimuli.? Pt reports no delusions, and presents with a linear thought process.? Pt reports SI, denies HI or intent to harm self. Pt reports a normal appetite, 2-3 meals a day.? Pt reports having lost around 20 lbs since the last time he weighed himself during his previous [facility] admission. Pt has had several admissions to [facility] in previous years. Pt reports difficulty sleeping, ?not good, getting a few hours of sleep a night, having difficulty staying asleep I wake up a lot, I have nightmares too.?? Pt reports he takes prazosin.? Pt maintains focus during the admission process. Pt reports use of cigarettes, 1.5 packs a day, every day since he was 12. Last used 03/18. Pt also reports drinking every day for over a month, ?I drink a fifth a day.?? A fifth is equivalent to 17 standard shots. Last used 03/18.? Pt has longstanding use of cocaine and heroin, but the attempt comes after months of abstinence according to pt. Last used 03/18.? Pt reports using methadone bought from the street.? Pt tox screen came back positive for opiates, methadone, fentanyl, benzodiazepines, and cocaine. Pt states they have hypertension and chronic lower back pain.? Pt skin in tact.? Pt is on safety checks for 15min. ?
--- NOTE | 2025-03-19 18:39 | PC.NURSE ---
pt signed a 3 day, up on
[2025-03-19 19:40] VITALS: PULSE 78; RESP 16; TEMP 37; O2SAT 98
[2025-03-19 20:11] VITALS: BP 146/85
[2025-03-19 21:00] VITALS: BP 135/81; PULSE 95; RESP 20; O2SAT 97
[2025-03-19 21:09] LABS: Glucose, Whole Blood 105 mg/dL (60-115)
--- NOTE | 2025-03-19 21:09 | PM.EVENT ---
Event Note Date of Service: 03/19/25 Event Note: Rapid response was called due to questionable seizure-like activity. As per the nurse, patient was witnessed lying on the side and shaking. Upon arrival, patient awake, alert and responsive. No seizure-like activity noted. No postictal episode. No tongue bite. Patient does have a history of withdrawal seizures and did received 3 mg p.o. Ativan about an hour ago. Currently hemodynamically stable and maintaining normal oxygen saturation on room air. Continue to monitor. Time Spent With Patient Time: Total time managing care of this patient today ____ minutes.
[2025-03-20 07:52] VITALS: BP 148/75; PULSE 79; RESP 16; TEMP 35.8; O2SAT 97
[2025-03-20] MEDS: Nicotine 21 MG PATCH.TD24 TRANSDERMA (08:29)
--- NOTE | 2025-03-20 09:32 | HO.PSYCHPN ---
Subjective Subjective Date of Service: 03/20/25 Reason For Visit: SI Subjective Notes: 3 Day Interim History: Patient signed 3 day notice up on 03/22/25. Pt reports high anxiety d/t withdrawal symptoms; continues on CIWA Q2HR. tearful during assessment. pt reports auditory hallucinations at times of his mothers and uncles voices. denies SI/HI/VH. showered. plans on visiting with his girlfriend today. Rapid response called on pt last night; please see hospitalist note. Continue current tx plan. Medication Compliance: Yes Side effects from medications: No Attending Groups: Intermittent Mental Status Exam Mental Status Exam Narrative: Pt is alert and oriented; behavior is cooperative and calm; dressed in casual attire; mood is described as anxious and depressed ; eye contact appropriate; Speech is normal rate, volume and not pressured; thought process is organized and goal directed; Thought content is on tx; denies SI/HI/VH. +AH Diagnostics Vital Signs (24Hr): Vital Signs - 24 hr 03/19/25 19:40 03/19/25 20:11 03/19/25 21:00 Temperature 98.6 F Pulse Rate 78 95 Respiratory Rate 16 20 Blood Pressure 146/85 H 135/81 Pulse Oximetry 98 97 Oxygen Delivery Method Room Air Room Air 03/20/25 07:52 Temperature 96.5 F L Pulse Rate 79 Respiratory Rate 16 Blood Pressure 148/75 H Pulse Oximetry 97 Oxygen Delivery Method Room Air BMI result Body Mass Index 30.7 Labs 03/17/25 01:06 03/20/25 11:51 Labs: Laboratory Results - last 48 hr 03/19/25 21:05 POC Glucose 105 Medications Medications Current Medications Acetaminophen (Acetaminophen 325 Mg Tablet) 650 mg PO Q6H PRN PRN Reason: Headache/Pain, Scale 1-10 Last Admin: 03/20/25 06:46 Dose: 650 mg Al Hydroxide/Mg Hydroxide (Magnesium Hydrox/Alum Hydrox 30 Ml Oral.Susp) 30 ml PO Q6H PRN PRN Reason: Heartburn/Nausea Albuterol Sulfate (Albuterol Sulfate 90 Mcg 8 Gm Inhaler) 2 puff INHALE Q4H PRN PRN Reason: Shortness Of Breath Or Wheezing Chlorpromazine HCl (Chlorpromazine Hcl 25 Mg Tablet) 25 mg PO BID PRN PRN Reason: severe anxiety, agitation or insomnia Last Admin: 03/19/25 17:30 Dose: 25 mg Hydroxyzine HCl (Hydroxyzine Hcl 50 Mg Tablet) 50 mg PO TID PRN PRN Reason: Anxiety Last Admin: 03/19/25 09:27 Dose: 50 mg Lorazepam (Lorazepam 1 Mg Tablet) 1 mg PO Q2H PRN PRN Reason: CIWA 8-11 Lorazepam (Lorazepam 1 Mg Tablet) 2 mg PO Q2H PRN PRN Reason: CIWA 12-15 Last Admin: 03/19/25 16:32 Dose: 2 mg Lorazepam (Lorazepam 1 Mg Tablet) 3 mg PO Q2H PRN PRN Reason: CIWA > 15, and call MD Last Admin: 03/20/25 08:28 Dose: 3 mg Lurasidone HCl (Lurasidone Hcl 20 Mg Tablet) 20 mg PO DAILY@1700 [facility] Last Admin: 03/19/25 17:27 Dose: 20 mg Magnesium Hydroxide (Milk Of Magnesia 30 Ml Oral.Susp) 30 ml PO DAILY PRN PRN Reason: Constipation Mirtazapine (Mirtazapine 7.5 Mg Tablet) 7.5 mg PO BEDTIME [facility] Last Admin: 03/19/25 20:11 Dose: 7.5 mg Nicotine (Nicotine 21 Mg Patch.Td24) 21 mg TRANSDERMA DAILY [facility] Last Admin: 03/20/25 08:29 Dose: 21 mg Nicotine Polacrilex (Nicotine Polacrilex 2 Mg Gum) 4 mg BUCCAL Q2H PRN PRN Reason: Nicotine Cravings Last Admin: 03/20/25 08:30 Dose: 4 mg Omeprazole (Omeprazole 40 Mg Capsule.Dr) 40 mg PO DAILY [facility] Last Admin: 03/20/25 08:28 Dose: 40 mg Ondansetron HCl (Ondansetron Odt 8 Mg Tab.Rapdis) 8 mg TRANSLINGU Q12H PRN PRN Reason: Nausea and Vomiting Prazosin HCl (Prazosin Hcl 1 Mg Capsule) 2 mg PO BEDTIME [facility]; Protocol Last Admin: 03/19/25 20:11 Dose: 2 mg Thiamine HCl (Thiamine Hcl 100 Mg Tablet) 100 mg PO DAILY [facility] Last Admin: 03/20/25 08:28 Dose: 100 mg Trazodone HCl (Trazodone Hcl 50 Mg Tablet) 50 mg PO BEDTIME MRX1 PRN PRN Reason: Insomnia Last Admin: 03/19/25 22:13 Dose: 50 mg Allergies Allergies Allergy/AdvReac Type Severity Reaction Status Date / Time amoxicillin (AMOXICILLIN) Allergy Unknown HIVES Verified 03/16/25 23:13 Assessment & Plan Assessment & Plan (1) Bipolar 2 disorder, major depressive episode: Status: Acute Code(s): F31.81 - Bipolar II disorder (2) PTSD (post-traumatic stress disorder): Status: Chronic Code(s): F43.10 - Post-traumatic stress disorder, unspecified (3) Opioid use disorder: Status: Acute Code(s): F11.90 - Opioid use, unspecified, uncomplicated (4) Cocaine use disorder: Status: Acute Code(s): F14.10 - Cocaine abuse, uncomplicated (5) Alcohol use disorder: Status: Acute Code(s): F10.90 - Alcohol use, unspecified, uncomplicated (6) TBI (traumatic brain injury): Status: Chronic Code(s): S06.9X9A - Unspecified intracranial injury with loss of consciousness of unspecified duration, initial encounter Plan Patient is a 40-year-old male with history of bipolar disorder, PTSD, opiate use disorder, cocaine use disorder and alcohol use disorder who was brought in by ambulance to ER due to stating he intentionally overdosed on heroin and cocaine in a suicide attempt secondary to life stressors. Plan: CV 15 minute safety checks CIWA protocol Continue home medications Obtain collateral Referral to outpatient psychiatric providers Encourage groups Referral to substance abuse program or respite Discharge planning 03/20: Patient signed 3 day notice up on 03/22/25. Pt reports high anxiety d/t withdrawal symptoms; continues on CIWA Q2HR. tearful during assessment. pt reports auditory hallucinations at times of his mothers and uncles voices. denies SI/HI/VH. showered. plans on visiting with his girlfriend today. Rapid response called on pt last night; please see hospitalist note. Continue current tx plan. Patient educated on: diagnosis, medication risk/benefits and therapeutic strategies Reason for continued inpatient stay Substantial Risk for: med/psych decompensation Time Spent With Patient Time: Total time managing care of this patient today _20___ minutes.
[2025-03-20 10:38] VITALS: BP 136/93; PULSE 93; RESP 18; TEMP 36.8; O2SAT 97
[2025-03-20 12:14] LABS: Alanine Aminotransferase 104 U/L (0-40); Albumin Level 3.9 g/dL (3.5-5.0); Alkaline Phosphatase 119 U/L (39-117); Anion Gap 11 (12-20); Aspartate Amino Transferase 76 U/L (5-37); Blood Urea Nitrogen 12 mg/dL (9-16); Calcium 9.6 mg/dL (8.4-10.2); Carbon Dioxide 26 mmol/L (22-29); Chloride 109 mmol/L (96-108); Cholesterol 163 mg/dL (<200); Creatinine Clr Calc Pharmacy 160.6; Estimated Glomerular Filt Rate > 60; HDL Cholesterol 50 mg/dL (>40); Potassium 4.8 mmol/L (3.3-5.1); Sodium 141 mmol/L (135-145); Total Protein 7.7 g/dL (6.5-8.0); Triglycerides 105 mg/dL (<150)
[2025-03-20 12:25] LABS: Hemoglobin A1C 105.8768 umol/L; Total Hemoglobin (HGBA1C) 3509.0436 umol/L
[2025-03-20 12:40] VITALS: BP 135/94; PULSE 108; RESP 18; TEMP 37.1; O2SAT 97
[2025-03-20 15:05] VITALS: BP 149/86; PULSE 103
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
[2025-03-20 20:00] VITALS: BP 143/76; PULSE 90; RESP 18; TEMP 37.4; O2SAT 98
[2025-03-20 20:21] VITALS: BP 143/76
[2025-03-21 07:44] VITALS: BP 136/87; PULSE 100; RESP 18; TEMP 36.8; O2SAT 100
--- NOTE | 2025-03-21 07:56 | P.PNPSI_ITS ---
Subjective Subjective Reason For Visit: SI Diagnostics Vital Signs (24Hr): Vital Signs - 24 hr 03/20/25 10:38 03/20/25 12:40 03/20/25 15:05 Temperature 98.2 F 98.7 F Pulse Rate 93 108 H 103 H Respiratory Rate 18 18 Blood Pressure 136/93 H 135/94 H 149/86 H Pulse Oximetry 97 97 Oxygen Delivery Method Room Air Room Air 03/20/25 20:00 03/20/25 20:21 03/21/25 07:44 Temperature 99.3 F 98.3 F Pulse Rate 90 100 Respiratory Rate 18 18 Blood Pressure 143/76 H 143/76 H 136/87 Pulse Oximetry 98 100 Oxygen Delivery Method Room Air Room Air BMI result Body Mass Index 30.7 Labs 03/17/25 01:06 03/20/25 11:51 Labs: Laboratory Results - last 48 hr 03/19/25 03/20/25 21:05 11:51 Sodium 141 Potassium 4.8 D Chloride 109 H Carbon Dioxide 26 Anion Gap 11 L BUN 12 Creatinine 0.75 Estim Creat Clear Calc 160.6 Estimated GFR > 60 POC Glucose 105 Random Glucose 108 Estimat Average Glucose 94 Hemoglobin A1c % 4.9 Calcium 9.6 D Total Bilirubin 0.2 AST 76 H ALT 104 H Alkaline Phosphatase 119 H Total Protein 7.7 Albumin 3.9 Triglycerides 105 Cholesterol 163 LDL Cholesterol, Calc 92 HDL Cholesterol 50 Medications Medications Current Medications Acetaminophen (Acetaminophen 325 Mg Tablet) 650 mg PO Q6H PRN PRN Reason: Headache/Pain, Scale 1-10 Last Admin: 03/20/25 06:46 Dose: 650 mg Al Hydroxide/Mg Hydroxide (Magnesium Hydrox/Alum Hydrox 30 Ml Oral.Susp) 30 ml PO Q6H PRN PRN Reason: Heartburn/Nausea Albuterol Sulfate (Albuterol Sulfate 90 Mcg 8 Gm Inhaler) 2 puff INHALE Q4H PRN PRN Reason: Shortness Of Breath Or Wheezing Chlorpromazine HCl (Chlorpromazine Hcl 25 Mg Tablet) 25 mg PO BID PRN PRN Reason: severe anxiety, agitation or insomnia Last Admin: 03/20/25 22:14 Dose: 25 mg Hydroxyzine HCl (Hydroxyzine Hcl 50 Mg Tablet) 50 mg PO TID PRN PRN Reason: Anxiety Last Admin: 03/20/25 22:14 Dose: 50 mg Lorazepam (Lorazepam 1 Mg Tablet) 1 mg PO Q2H PRN PRN Reason: CIWA 8-11 Last Admin: 03/20/25 20:22 Dose: 1 mg Lorazepam (Lorazepam 1 Mg Tablet) 2 mg PO Q2H PRN PRN Reason: CIWA 12-15 Last Admin: 03/20/25 12:45 Dose: 2 mg Lorazepam (Lorazepam 1 Mg Tablet) 3 mg PO Q2H PRN PRN Reason: CIWA > 15, and call Last Admin: 03/20/25 10:41 Dose: 3 mg Lurasidone HCl (Lurasidone Hcl 20 Mg Tablet) 20 mg PO DAILY@1700 [facility] Last Admin: 03/20/25 17:17 Dose: 20 mg Magnesium Hydroxide (Milk Of Magnesia 30 Ml Oral.Susp) 30 ml PO DAILY PRN PRN Reason: Constipation Mirtazapine (Mirtazapine 7.5 Mg Tablet) 7.5 mg PO BEDTIME [facility] Last Admin: 03/20/25 20:21 Dose: 7.5 mg Nicotine (Nicotine 21 Mg Patch.Td24) 21 mg TRANSDERMA DAILY [facility] Last Admin: 03/20/25 08:29 Dose: 21 mg Nicotine Polacrilex (Nicotine Polacrilex 2 Mg Gum) 4 mg BUCCAL Q2H PRN PRN Reason: Nicotine Cravings Last Admin: 03/21/25 06:54 Dose: 4 mg Omeprazole (Omeprazole 40 Mg Capsule.Dr) 40 mg PO DAILY [facility] Last Admin: 03/20/25 08:28 Dose: 40 mg Ondansetron HCl (Ondansetron Odt 8 Mg Tab.Rapdis) 8 mg TRANSLINGU Q12H PRN PRN Reason: Nausea and Vomiting Prazosin HCl (Prazosin Hcl 1 Mg Capsule) 2 mg PO BEDTIME [facility]; Protocol Last Admin: 03/20/25 20:21 Dose: 2 mg Thiamine HCl (Thiamine Hcl 100 Mg Tablet) 100 mg PO DAILY [facility] Last Admin: 03/20/25 08:28 Dose: 100 mg Trazodone HCl (Trazodone Hcl 50 Mg Tablet) 50 mg PO BEDTIME MRX1 PRN PRN Reason: Insomnia Last Admin: 03/20/25 22:14 Dose: 50 mg Allergies Allergies Allergy/AdvReac Type Severity Reaction Status Date / Time amoxicillin (AMOXICILLIN) Allergy Unknown HIVES Verified 03/16/25 23:13 Assessment & Plan Assessment & Plan (1) Alcohol use disorder: Status: Acute Code(s): F10.90 - Alcohol use, unspecified, uncomplicated Assessment and Plan: * withdrawal improving --no sx noted when seen by t/w * connected to community supports--[facility] in particular * considering ALEKSANDAR--open to referral to [facility] to further discuss (2) Opioid use disorder: Status: Acute Code(s): F11.90 - Opioid use, unspecified, uncomplicated Assessment and Plan: * denies ongoing opioid use. Does not wish to restart MOUD * discussed increased overdose risk with occasional opiate use. Patient somewhat dismissive of this stating I'm done with this.. Agreeable to naloxone at discharge Time Spent With Patient Time: Total time managing care of this patient today ____ minutes.
[2025-03-21] MEDS: Nicotine 21 MG PATCH.TD24 TRANSDERMA (08:32)
--- NOTE | 2025-03-21 11:10 | PM.PSYDC ---
DS: Providers Provider Date of Service: 03/21/25 Date of admission: 03/19/25 13:22 Date of discharge: 03/21/25 Primary care physician: Milo Joshi MD Admitting clinician: Daphney Shaw Attending physician on admission: Michael Vidales Consults: 03/19/25 16:44 Addiction Medicine Provider Routine Consulting Provider: Addiction Covering Reason for consultation: stopped methadone 2 months ago; relapsed Has provider been notified: No 03/19/25 16:53 Addiction Medicine Provider Routine Consulting Provider: Addiction Covering Reason for consultation: recent relapse Attending physician on discharge: Colin Ellison Discharging clinician: Daphney Shaw DS: Diagnosis Discharge Diagnosis (1) Alcohol use disorder: Status: Acute (2) Opioid use disorder: Status: Acute DS: Medications Discharge Medications Home Medications: Home Medications ?Medication ?Instructions ?Recorded ?Confirmed chlorpromazine 25 mg tablet 10 mg PO BID PRN severe anxiety, 01/19/24 03/17/25 agitation or insomnia mirtazapine 15 mg tablet 7.5 mg PO BEDTIME 01/19/24 03/17/25 hydroxyzine HCl 50 mg tablet 50 mg PO TID PRN anxiety 03/17/25 03/17/25 lurasidone 20 mg tablet 20 mg PO QPM 03/17/25 03/17/25 omeprazole 20 mg capsule,delayed 40 mg PO DAILY 03/17/25 03/17/25 release prazosin 1 mg capsule 2 mg PO BEDTIME 03/17/25 03/17/25 Previous Rx's ?Medication ?Instructions ?Recorded albuterol sulfate 90 mcg/actuation 2 puff inhalation Q4H PRN 11/11/23 aerosol inhaler Shortness Of Breath Or Wheezing 30 days #1 inhaler ibuprofen 600 mg tablet 600 mg PO Q6H PRN pain #20 tabs 02/17/25 Mental Status Exam Mental Status Exam Narrative: Pt is alert and oriented; behavior is cooperative, friendly and calm; dressed in casual attire; mood is described as good ; eye contact appropriate; Speech is normal rate, volume and not pressured; thought process is organized; Thought content is on tx/discharge; denies SI/HI/VH/AH. Data Data Completed and Pending Completed studies during hospitalization [Text1]: 03/17/25 03/17/25 03/19/25 00:06 01:06 21:05 WBC 10.1 RBC 3.83 L Hgb 12.0 L Hct 33.7 L MCV 88.0 MCH 31.3 MCHC 35.6 RDW 12.7 Plt Count 312 MPV 9.1 L Absolute Nucleated RBC 0.000 Nucleated RBC % (auto) 0.0 Sodium 135 Potassium 3.6 D Chloride 99 Carbon Dioxide 29 Anion Gap 11 L BUN 13 Creatinine 0.76 Estim Creat Clear Calc 158.4 Estimated GFR > 60 POC Glucose 105 Random Glucose 99 Estimat Average Glucose Hemoglobin A1c % Calcium 8.9 Total Bilirubin 0.6 AST 94 H ALT 96 H Alkaline Phosphatase 135 H Total Protein 7.2 Albumin 3.6 Triglycerides Cholesterol LDL Cholesterol, Calc HDL Cholesterol Urine Color Dark Yellow Urine Appearance Clear Urine pH 5.5 Ur Specific [place] >= 1.030 H Urine Protein 30 (1+) H Urine Glucose (UA) Negative Urine Ketones Trace Urine Blood Negative Urine Nitrite Negative Ur Leukocyte Esterase Trace H Urine RBC 0-2 Urine WBC 0-5 Ur Squamous Epith Cells 0-2 Calcium Oxalate Crystal Present Urine Bacteria None Seen Hyaline Casts 3-5 Urine Opiates Screen POSITIVE H Ur Buprenorphine Scrn Not Detected Ur Oxycodone Screen Not Detected Urine Methadone Screen Positive H Urine Fentanyl Screen POSITIVE H Ur Barbiturates Screen Not Detected Ur Phencyclidine Scrn Not Detected Ur Amphetamines Screen Not Detected U Benzodiazepines Scrn POSITIVE H Urine Cocaine Screen POSITIVE H U Marijuana (THC) Screen Not Detected Ethyl Alcohol < 10 Influenza Type A (PCR) NEGATIVE Influenza Type B (PCR) NEGATIVE RSV RNA Qual (PCR) NEGATIVE SARS-CoV-2 RNA (RT-PCR) NEGATIVE 03/20/25 11:51 WBC RBC Hgb Hct MCV MCH MCHC RDW Plt Count MPV Absolute Nucleated RBC Nucleated RBC % (auto) Sodium 141 Potassium 4.8 D Chloride 109 H Carbon Dioxide 26 Anion Gap 11 L BUN 12 Creatinine 0.75 Estim Creat Clear Calc 160.6 Estimated GFR > 60 POC Glucose Random Glucose 108 Estimat Average Glucose 94 Hemoglobin A1c % 4.9 Calcium 9.6 D Total Bilirubin 0.2 AST 76 H ALT 104 H Alkaline Phosphatase 119 H Total Protein 7.7 Albumin 3.9 Triglycerides 105 Cholesterol 163 LDL Cholesterol, Calc 92 HDL Cholesterol 50 Urine Color Urine Appearance Urine pH Ur Specific [place] Urine Protein Urine Glucose (UA) Urine Ketones Urine Blood Urine Nitrite Ur Leukocyte Esterase Urine RBC Urine WBC Ur Squamous Epith Cells Calcium Oxalate Crystal Urine Bacteria Hyaline Casts Urine Opiates Screen Ur Buprenorphine Scrn Ur Oxycodone Screen Urine Methadone Screen Urine Fentanyl Screen Ur Barbiturates Screen Ur Phencyclidine Scrn Ur Amphetamines Screen U Benzodiazepines Scrn Urine Cocaine Screen U Marijuana (THC) Screen Ethyl Alcohol Influenza Type A (PCR) Influenza Type B (PCR) RSV RNA Qual (PCR) SARS-CoV-2 RNA (RT-PCR) DS: Summary Hospital Course Hospital Course: Patient is a 40-year-old male with history of bipolar disorder, PTSD, opiate use disorder, cocaine use disorder and alcohol use disorder who was brought in by ambulance to ER due to stating he intentionally overdosed on heroin and cocaine in a suicide attempt secondary to life stressors. Per crisis report, patient reported suicidal ideation and reporting he intentionally overdosed on heroin and cocaine in a suicide attempt. Patient reports life stressors with his daughter not speaking with him as well as, his mother passing away recently. Patient reports he is not taking his psychiatric medications at this time. Denies HI/VH/AH. Patient tearful during assessment. History of multiple inpatient psychiatric hospitalizations. History of SA via overdose. History of not following up with treatment recommendations. During admission assessment, patient presents alert and oriented x3. Calm and cooperative. Patient reports feeling anxious and depressed; patient stated, my daughter is not talking to me because I'm dating her mother's best friend. I decided to overdose and when I woke up I called my girlfriend right away and she told me to check into the hospital. I'm not losing her. I regret what I did . Patient reports he has not taken his psychiatric medications in over a month since his mother . Patient stated, I just thought fuck it . Patient reports his outpatient providers are through [facility]. He reports daily alcohol use and states he used heroin and cocaine just that 1 day . He reports he has been off of methadone for the past 2 months. Currently denies SI/HI/VH/AH. Patient would like to be restarted on his home medications and be referred to either respite or a substance abuse program. Plan: CV 15 minute safety checks CIWA protocol Continue home medications Obtain collateral Referral to outpatient psychiatric providers Encourage groups Referral to substance abuse program or respite Discharge planning Patient signed 3 day notice up on 03/22/25. Pt reports high anxiety d/t withdrawal symptoms; continues on CIWA Q2HR. tearful during assessment. pt reports auditory hallucinations at times of his mothers and uncles voices. denies SI/HI/VH. showered. plans on visiting with his girlfriend today. Rapid response called on pt last night; please see hospitalist note. Continue current tx plan. Patient reports feeling great today; pt stated, I'm no longer having withdrawal symptoms. I realized I have a lot of supportive people in my life. I want to stay alive and I think my mom put my girlfriend in my life for a reason. My uncle plans on getting me a hotel room and then I'm going to try to get into respite. I'm done using because I want to have a good life. I know my daughter will come around to me having a girlfriend . Adamantly denies SI. denies SI/HI/VH/AH. Focused on discharge; asking to be discharged today rather than tomorrow morning when 3 day notice expires. Pt stated, I hate places like this because it reminds me of half-way and makes me feel worse mentally. I plan on focusing on myself and getting better . pt reports he plans on following up with outpatient providers. Status at Discharge Cognitive/behavioral status at discharge: Patient has insight and demonstrates good judgment in terms of wanting to pursue treatment. Patient has a safety plan that includes presenting to the closest ER or calling 911 if feeling unsafe. Functional status at discharge: independent ambulation Overall status at discharge: patient is back to baseline Time Spent with Patient Time attestation: Total time managing care of this patient today __20__ minutes. Time spent: Less than 30 minutes Discharge Plan Discharge Anticipated Discharge Date/Time: 03/21/25 11:10 Patient Disposition: Home, Self-Care Discharge Diagnosis: Bipolar d/o, PTSD, opioid use d/o, cocaine use d/o, alcohol use d/o Referrals: [facility] Walk in Clinic [Other] - 1 Week Referral Note: walk in hours are Wednesday-Wednesday 8am-8pm Milo Joshi MD [Primary Care Provider, Medical] Referral Note: Please call your primary care office to make a follow up appointment. Discharge Medications: New chlorpromazine 25 mg Tablet 25 mg PO BID PRN (Reason: severe anxiety, agitation or insomnia) 30 Days Qty: 60 0RF Continued hydroxyzine HCl 50 mg tablet 50 mg PO TID PRN (Reason: anxiety) 30 Days Qty: 90 0RF mirtazapine 15 mg tablet 7.5 mg PO BEDTIME 30 Days Qty: 15 0RF albuterol sulfate 90 mcg/actuation HFA aerosol inhaler 2 puff inhalation Q4H PRN (Reason: Shortness Of Breath Or Wheezing) 30 Days Qty: 1 0RF Changed omeprazole 40 mg capsule,delayed release(DR/EC) 40 mg PO DAILY 30 Days Qty: 30 0RF prazosin 2 mg capsule 2 mg PO BEDTIME 30 Days Qty: 30 0RF lurasidone 20 mg tablet 20 mg PO DAILY@1700 30 Days Qty: 30 0RF Discontinued ibuprofen 600 mg tablet 600 mg PO Q6H PRN (Reason: pain) Qty: 20 0RF chlorpromazine 25 mg tablet 10 mg PO BID PRN (Reason: severe anxiety, agitation or insomnia) Discharge Orders: Discharge Order (Routine); Ordered 03/21/25 Ordered By: Daphney Shaw Diet: Regular diet Activity on Discharge: As tolerated Stand Alone Forms: Patient Portal Discharge page, Community Support Print Language: Albanian Care Plan Goals: Maintain mood and safe behaviors Take medications as prescribed Continue to pursue sobriety Practice coping skills Continue with outpatient providers and reach out to them as needed Health Concerns: Mood stability and behaviors Sobriety Plan of Treatment: Follow up with your PCP, psychiatric provider and other outpatient providers regarding above concerns Take medications as prescribed Assessment: Patient has insight and demonstrates good judgment in terms of wanting to pursue treatment. Patient has a safety plan that includes presenting to the closest ER or calling 911 if feeling unsafe.
[2025-03-21] MEDS: Naloxone HCl Nasal TAKE HOME 4 MG SPRAY 8 MG NOSTRILALT (11:37)
== END 2025-03-21 11:40 | disposition home or self-care (01) | DRG 753 ==
LOC: HO.ED 03-19 14:28 → HO.PADLT16 03-19 14:38
PROVIDERS: Admitting Provider Registered Nurse; Emergency Provider Emergency Medicine; PCP Internal Medicine; Responsible Provider Registered Nurse; Visit Provider Psychiatry & Neurology Psychiatry
DX: F31.81 Bipolar II disorder (principal); R45.851 Suicidal ideations; F10.90 Alcohol use, unspecified, uncomplicated; F11.90 Opioid use, unspecified, uncomplicated; F17.210 Nicotine dependence, cigarettes, uncomplicated; Z71.6 Tobacco abuse counseling; Z91.51 Personal history of suicidal behavior; F14.10 Cocaine abuse, uncomplicated; F43.10 Post-traumatic stress disorder, unspecified; Z87.820 Personal history of traumatic brain injury; Z20.822 Contact with and (suspected) exposure to COVID-19; Z63.4 Disappearance and death of family member; Z63.0 Problems in relationship with spouse or partner; Z59.02 Unsheltered homelessness; Z79.899 Other long term (current) drug therapy
CPT/HCPCS: 36415; 80053; 80061; 80307; 81001; 82947; 83036; 85027; 87637; 93005; 99285; S9485

== ENCOUNTER → 2025-03-19 08:18 | Outpatient (BNV) | payer MEDICAID, SELFPAY | PROVIDERS: Admitting Provider Registered Nurse; Emergency Provider Emergency Medicine; PCP Internal Medicine; Responsible Provider Registered Nurse; Visit Provider Internal Medicine | DX: Z13.6 Encounter for screening for cardiovascular disorders (principal) | CPT/HCPCS: 93010 ==

== ENCOUNTER → 2025-03-19 13:22 | Outpatient (BNV) | payer OTHER, SELFPAY | PROVIDERS: Admitting Provider Registered Nurse; Emergency Provider Emergency Medicine; PCP Internal Medicine; Responsible Provider Registered Nurse; Visit Provider Registered Nurse | DX: F10.90 Alcohol use, unspecified, uncomplicated (principal); F11.90 Opioid use, unspecified, uncomplicated | CPT/HCPCS: 99231; 99232; 99233; 99499 ==

== ENCOUNTER 2025-06-21 17:40 | Inpatient (IN) | payer OTHER, SELFPAY ==
--- OUTSIDE RECORDS SUMMARY | 2025-05-19 16:00 | XMS_ITS ---
Author Organization [facility] Address [address] [place] [address] Care Team Providers Care Cellophane Worker Name Role Phone Milo Joshi Primary Care Provider Migration, Provider Unavailable Unavailable Allergies Allergen (clinical drug ingredient) Drug/Non Drug Allergy documented on EMR Reaction Allergy Type Onset Date Status amoxicillin Amoxicillin hives Drug Allergy Act perla REASON FOR VISIT [facility] To [facility] Conversion Encounter Medications Medication SIG (Take, Route, [...] Male Encounters Encounter Location Date Provider Diagnosis [address] [address] 05/19/2025 Provider Migration Plan Of Treatment Next Appt Details Provider Name:Melanie Monge, 07/20/2025 09:00:00 AM, [address] [place] [address], [phone], Provider Name:Chela moseley, 07/23/2025 11:00:00 AM, [address] [place] [address], [phone], Progress Notes * Rey TRANDOB:[birth year] (40 yo M)Acc No.[id number]:05/19/2025 Patient: Rey THORNTON Provider: :1985 A ge:40 Y S ex:Male Date:05/19/2025 Address:[address] [place] [id number] Pcp:Milo Joshi Subjective: * Chief Complaints: * [facility] * Medical History: * Medications: [...] Electronic signature of Prov ider Migration on 07/19/2025 at 08:41 AM EST Sign off status: Pending * Provider: Date: 0 05/19/2025 Generated for Angélica dinh/Toni/Krystal on: 09/18/2024 08:41 AM EST
--- OUTSIDE RECORDS SUMMARY | 2025-05-19 17:00 | XMS_ITS ---
Author Organization [facility] Address [address] [place] [phone] Care Team Providers Care Beekeeper Farmer Name Role Phone Milo Joshi Primary Care Provider Migration, Provider Unavailable Unavailable Allergies Allergen (clinical drug ingredient) Drug/Non Drug Allergy documented on EMR Reaction Allergy Type Onset Date Status amoxicillin Amoxicillin hives Drug Allergy Act perla REASON FOR VISIT [facility] To [facility] Conversion Encounter Medications Medication SIG (Take, Route, [...] review and pick correct strength-formulat ion from [facility] options. If intended option is not shown, discontinue and re-order from Quick Search* Active Social History Sex Assigned At : Social History Observation Description Sex Assigned At Male Encounters Encounter Location Date Provider Diagnosis [id number] [place] [address] 05/19/2025 Provider Migration Plan Of Treatment No Information Progress Notes * Rey TRANDOB:[birth year] (40 yo M)Acc No.[id number]:05/19/2025 Patient: Rey THORNTON Provider: :1985 A ge:40 Y S ex:Male Date:05/19/2025 Address:[address] [place] [address] [address] [phone] Pcp:Milo Joshi Subjective: * Chief Complaints: [...] *Please review and pick correct strength-formulation from [employer] options. If intended option is not shown, [...] Electronic signature of Prov ider Migration on 06/21/2025 at 07:53 PM EDT Sign off status: Pending * Provider: Date: 0 05/19/2025 Generated for Angélica dinh/Toni/Krystal on: 1 07:53 PM EDT
--- NOTE | 2025-06-21 | ECG_ITS ---
Test Reason : CARDIAC STATUS Blood Pressure : */* mmHG Vent. Rate : 109 BPM Atrial Rate : 109 BPM P-R Int : 120 ms QRS Dur : 90 ms QT Int : 322 ms P-R-T Axes : 68 35 50 degrees QTcB Int : 433 ms Sinus tachycardia with Fusion complexes Nonspecific ST abnormality Abnormal ECG When compared with ECG of 19-Mar-2025 08:35, Fusion complexes are now Present Referred By: Generic ED Physician Electronically Signed By:
--- NOTE | ~2025-06-21 | US_ITS ---
CLINICAL HISTORY: POP FOSSA SWELLING, DVT VS BAKERS CYST VENOUS DUPLEX ULTRASOUND RIGHT LOWER EXTREMITY Comparison: None provided Findings: The visualized deep veins are fully compressible with normal Doppler color flow and spectral tracings. 1.9 x 0.6 x 1.8 cm (Length x Height x Width) popliteal/Bishop's cyst. IMPRESSION: 1. No evidence for right lower extremity deep venous thrombosis. 2. 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 This document has been electronically signed by: Dayan Rawls DO on 06/25/2025 18:06:33
--- NOTE | ~2025-06-21 | CT_ITS ---
CLINICAL HISTORY: trauma, pain CT maxillofacial without contrast Comparison: None provided Findings: No acute maxillofacial fracture Temporomandibular joints are intact. Small periapical lucencies noted in the maxillary molar dentition can be seen with periodontal disease, should be correlated clinically. Lobulated mucosal thickening throughout the paranasal sinuses more so in the maxillary sinuses. Orbits normal. Visualized intracranial contents are within normal limits. No foreign bodies. Motion and streak artifact limit evaluation. Plate and screw fixation across the left mandibular angle appears intact. IMPRESSION: No acute maxillofacial fracture Additional findings as described. This document has been electronically signed by: Edilberto Haley MD on 06/21/2025 19:01:59
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
[2025-06-21 17:53] VITALS: BP 170/90; PULSE 135; O2SAT 97
[2025-06-21 18:11] VITALS: BP 136/85; PULSE 114; RESP 20; TEMP 36.9; O2SAT 95; BMI 29.9
[2025-06-21 18:13] LABS: MANUAL DIFF FLAG NO
[2025-06-21 18:19] LABS: Hematocrit 36.7 % (42.0-52.0); Hemoglobin 12.7 g/dl (14.0-18.0); Imm Gran Abs Auto 0.03 X10*3/uL (0.00-0.03); Imm Gran Pct Auto 0.2 % (0.0-0.4); Lymphocytes Absolute Auto 1.1 X10*3/uL (1.2-4.9); Mean Corpuscular HGB Conc 34.6 g/dl (31.0-36.0); Mean Corpuscular Hemoglobin 31.1 pg (27.0-33.0); Mean Corpuscular Volume 90.0 fL (80.0-98.0); NRBC Abs Auto 0.000 X10*3/uL (0.0-0.012); NRBC Pct Auto 0.0 /100WBC (0.0-0.2); Platelet Count 250 X10*3/uL (160-400); Red Blood Count 4.08 X10*6/uL (4.60-5.80); White Blood Count 14.2 X10*3/uL (4.8-10.8)
[2025-06-21 18:28] LABS: Alanine Aminotransferase 86 U/L (0-40); Albumin Level 4.3 g/dL (3.5-5.0); Alkaline Phosphatase 96 U/L (39-117); Anion Gap 18 (12-20); Aspartate Amino Transferase 76 U/L (5-37); Blood Urea Nitrogen 18 mg/dL (9-16); Calcium 9.0 mg/dL (8.4-10.2); Carbon Dioxide 20 mmol/L (22-29); Chloride 102 mmol/L (96-108); Creatinine Clr Calc Pharmacy 162.9; Estimated Glomerular Filt Rate > 60; Potassium 4.2 mmol/L (3.3-5.1); Sodium 136 mmol/L (135-145); Total Protein 7.6 g/dL (6.5-8.0)
[2025-06-21 18:30] LABS: Acetaminophen LAB < 3 mcg/mL (<30); Salicylate < 5.0 mg/dL (15-30)
--- OUTSIDE RECORDS SUMMARY | 2025-06-21 19:54 | XMS_ITS | Patient Health Record ---
Author Organization [facility] Address [address] [place] [address] Care Team Providers Care Secondary School Teacher Name Role Phone Milo Joshi Primary Care Provider Melanie Monge Unavailable [phone] [facility], Nursing Unavailable [phone] Chela Torres Unavailable [phone] [facility], CHW Unavailable [phone] Casionan, Eddieliza Unavailable [phone] [facility], Provider Unavailable Unavailable Allergies Allergen (clinical drug ingredient) Drug/Non Drug Allergy documented on EMR Reaction Allergy Type Onset Date Status amoxicillin Amoxicillin hives Drug Allergy Act perla Results Component Value Reference Range Notes CT Chest WO Reviewed date:10/13/2024 09:58:51 PM Interpretation:Normal Performing Lab: Notes/Report: Normal CT Cervical Spine WO Reviewed date:10/13/2024 10:00:34 PM Interpretation:Normal Performing Lab: Notes/Report: Normal CR Shoulder LT Min 2 View Reviewed date:10/13/2024 10:01:21 PM Interpretation:Normal Performing Lab: Notes/Report: Normal CBC Reviewed date:10/13/2024 10:02:50 PM Interpretation:Abnormal Performing Lab: Notes/Report: Abnormal HEMATOCRIT 38 HEMOGLOBIN 12.8 MCV 93 PLT COUNT 297 WBC 12.2 BASIC METABOLIC PANEL (BMP) Reviewed date:10/13/2024 10:04:01 PM Interpretation:Normal Performing Lab: Notes/Report: Normal BUN 15 CALCIUM 9.4 CHLORIDE 103 CO2 22 CREAT 0.7 GLUCOSE 77 POTASSIUM 4.4 SODIUM 138 TSH Reviewed date:10/13/2024 10:04:44 PM Interpretation:Normal Performing Lab: Notes/Report: Normal TSH 0.64 MR Cervical Spine WO Reviewed date:10/13/2024 10:10:27 PM Interpretation:Abnormal Performing Lab: Notes/Report: Abnormal MR Thoracic Spine WO Reviewed date:10/13/2024 10:11:31 PM Interpretation:Negative Performing Lab: Notes/Report: Negative CR Shoulder RT Min 2 View Reviewed date:02/20/2025 05:54:25 PM Interpretation:Abnormal Performing Lab: Notes/Report: Abnormal Reason For Referral Reason Spine [facility] [address] [facility] patient with right lumbar radiuculitis who is s/p two spinal surgeries 10 years ago. Did reasonably well with epidurals and wants to avoid surgery Diagnosis 1 Radiculopathy, lumba r region (M54.16) Referral Organization [facility] Referring Provider First Name Milo Referring Provider Last Name Madelyn Referring Provider Speciality Internal M edicine Referred Organization [facility] Referred Provider Kuldeep Leo and S port Referred Address [address] [place] [address],[place], [id number], Referred Provider Specialty Physical Med icine and Rehabilitation General Notes Cass Kingsley 09/15/2024 02:49:56 PM > Faxed to [facility] in [facility], [id number] x 12 visits Clinical Notes Referral # [id number] D Referral Priority Routine Medications Medication SIG (Take, Route, Frequency, Duration) Notes Start Date End Date Status Gabapentin 300 MG 2 caps orally 3 times a day for 30 days Active hydrOXYzine HCl 50 MG 1 tab(s) orally 3 times a day as needed for anxiety for 30 days Active Prazosin HCl 2 MG 1 cap(s) orally at bedtime for nightmares for 30 days Active chlorproMAZINE 10 MG 1 TAB(S) ORALLY 2 TIMES A DAY NEEDED FOR SEVERE ANXIETY, AGITATION, INSOMNIA for 30 DAYS *Please review and pick correct strength-formulat ion from Medispan options. If intended option is not shown, discontinue and re-order from Quick Search* Active Acetaminophen 500 MG 2 tab(s) orally every 6 hours for 20 days 11/14/2024 Active Omeprazole 40 MG 1 cap(s) orally once a day for 30 days 02/07/2024 Active Mirtazapine 7.5 MG 1 tab orally [...] the morning) for 30 days 09/14/2024 Not-Taking Methadone HCl 5 MG 80 mg orally daily Active Albuterol Sulfate HFA 108 (90 Base) MCG/ACT 2 puff(s) inhaled every 6 hours for 30 days 02/07/2024 Active Dulera 200-5 MCG/ACT 2 puff(s) inhaled 2 times a day for 30 days 02/07/2024 Active Immunizations Vaccine Route Administration Date Status Comme nts Hepatitis A IM Intramuscular 07/06/2018 Administered ND 5 [id number] Influenza IM Intramuscular 07/06/2018 Administered ND 49 [id number] Hepatitis B (20 or more) IM Intramuscular 09/22/2019 Administered Influenza IM Intramuscular 10/02/2019 Administered ND 49 [id number] Influenza Unknown 05/29/2016 Administered Td Unknown 11/07/2008 Administered Moderna Covid-19 Vaccine Administration - Second Dose (Single Dose 100 MCG/0.5ML 2ND) Unknown 10/09/2021 Administered Hepatitis B (20 or more) IM Intramuscular 02/07/2024 Administered Hepatitis A IM Intramuscular 02/07/2024 Administered Flu-IIV4, p-free Unknown 10/29/2015 Administered Influenza Unknown 08/14/2010 Administered Afluria Unknown 08/23/2023 Administered Flu-IIV4, p-free Unknown 11/07/2023 Administered Antonio COVID-19 Vaccine Unknown 03/25/2021 Administered Social History Tobacco Use: Social History Observation Description Date Details (start date - stop date) Current Smoker NA - NA Sex Assigned At : Social History Observation Description Sex Assigned At Male Tobacco Use Assessment MU Question Answer Notes What is your current smoking status? current smo ker using nicorette gum How often do you smoke? every day How many cigarettes a day do you smoke? 6-10 How soon after you wake up d o you smoke your first cigarette? Within 5 minutes Are you interested in quitting? not ready to tamra t Patient counseled on the mirian gers of tobacco use and advised to quit: 09/14/2024 Section Notes: CHD Worker CSP [phone] CHD Worker CSP x 3 months re ferral from [facility] [phone] CHD Worker CSP x 3 months re ferral from [facility] [phone] CHD Worker CSP x 3 months re ferral from [facility] [phone] CHD Worker CSP x 3 months re ferral from [facility] [phone] CHD Worker CSP x 3 months re ferral from [facility] [phone] CHD Worker CSP x 3 months re ferral from [facility] [phone] CHD Worker CSP x 3 months re ferral from [facility] [phone] CHD Worker CSP x 3 months re ferral from [facility] [phone] CHD Worker CSP x 3 months re ferral from [facility] [phone] CHD Worker CSP x 3 months re ferral from [facility] [phone] CHD Worker CSP x 3 months re ferral from [facility] [phone] CHD Worker CSP x 3 months re ferral from [facility] [phone] CHD Worker CSP x 3 months re ferral from [facility] [phone] CHD Worker CSP x 3 months re ferral from [facility] [phone] CHD Worker CSP x 3 months re ferral from [facility] [phone] CHD Worker CSP x 3 months re ferral from [facility] [phone] CHD Worker CSP x 3 months re ferral from [facility] [phone] CHD Worker CSP x 3 months re ferral from [facility] [phone] CHD Worker CSP x 3 months re ferral from [facility] [phone] CHD Worker CSP x 3 months re ferral from [facility] [phone] CHD Worker CSP x 3 months re ferral from [facility] [phone] CHD Worker CSP x 3 months re ferral from [facility] [phone] CHD Worker CSP x 3 months re ferral from [facility] [phone] CHD Worker CSP x 3 months re ferral from [facility] [phone] CHD Worker CSP x 3 months re ferral from [facility] [phone] CHD Worker CSP x 3 months re ferral from [facility] [phone] CHD Worker CSP x 3 months re ferral from [facility] [phone] CHD Worker CSP x 3 months re ferral from [facility] [phone] CHD Worker CSP x 3 months re ferral from [facility] [phone] CHD Worker CSP x 3 months re ferral from [facility] [phone] CHD Worker CSP x 3 months re ferral from [facility] [phone] CHD Worker CSP x 3 months re ferral from [facility] [phone] CHD Worker CSP x 3 months re ferral from [facility] [phone] CHD Worker CSP x 3 months re ferral from [facility] [phone] CHD Worker CSP x 3 months re ferral from [facility] [phone] CHD Worker CSP x 3 months re ferral from [facility] [phone] CHD Worker CSP x 3 months re ferral from [facility] [phone] CHD Worker CSP x 3 months re ferral from [facility] [phone] CHD Worker CSP x 3 months re ferral from [facility] [phone] CHD Worker CSP x 3 months re ferral from [facility] [phone] CHD Worker CSP x 3 months re ferral from [facility] [phone] Problems Problem Type SNOMED Code ICD Code Onset Dates Problem Status W/U Status Risk Notes Problem Chronic hepatitis C (607531798) Chronic viral hepatitis C (B18.2) Active confirmed Problem Obesity (598015493) Obesity, unspecified (E66.9) Active confirmed Problem Alcohol abuse (66148103) Alcohol abuse, uncomplicated (F10.10) Active confirmed Problem Opioid abuse (9526554) Opioid abuse, uncomplicated (F11.10) Active confirmed Problem Tobacco user (456008961) Nicotine dependence, cigarettes, uncomplicated (F17.210) Active confirmed Problem Psychoactive substance abuse (63585652) Other psychoactive substance abuse, uncomplicated (F19.10) Active confirmed Problem Bipolar affective disorder, currently depressed, mild (960152328) Bipolar disorder, current episode depressed, mild (F31.31) Active confirmed Problem Bipolar affective disorder, currently depressed, moderate (827331012) Bipolar disorder, current episode depressed, moderate (F31.32) Active confirmed Problem Bipolar disorder (36648923) Bipolar disorder, unspecified (F31.9) Active confirmed Problem Anxiety disorder (319592633) Anxiety disorder, unspecified (F41.9) Active confirmed Problem Posttraumatic stress disorder (90890609) Post-traumatic stress disorder, chronic (F43.12) Active confirmed Problem Insomnia disorder related to another mental disorder (38534819) Insomnia due to other mental disorder (F51.05) Active confirmed Problem Essential hypertension (47697967) Essential (primary) hypertension (I10) Active confirmed Problem Uncomplicated moderate persistent asthma (804307842) Moderate persistent asthma, uncomplicated (J45.40) Active confirmed Problem Gastro-esophageal reflux disease without esophagitis (038933269) Gastro-esophagea l reflux disease without esophagitis (K21.9) Active confirmed Problem Lumbar radiculopathy (501180040) Radiculopathy, lumbar region (M54.16) Active confirmed Problem Nondependent cocaine abuse in remission (379606454) Cocaine abuse, in remission (F14.11) Active confirmed Problem Body mass index 35.00 to 39.99 (682090304152162) Body mass index [BMI] 37.0-37.9, adult (Z68.37) Active confirmed Problem Sheltered homelessness (258945808738075) Sheltered homelessness (Z59.01) Active confirmed Problem 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35) Inactive confirmed Problem Carpal tunnel syndrome (34281332) Carpal tunnel syndrome, bilateral upper limbs (G56.03) Inactive confirmed Vital Signs Temperature 97.1 degrees Fahrenheit 11/16/2024 Blood pressure diastolic 91 10/12/2024 Oximetry 96 09/14/2024 Height 72 in 11/16/2024 Blood pressure systolic 144 10/12/2024 Weight 278 lbs 09/14/2024 BMI 37.7 kg/m2 09/14/2024 Procedures Procedure Date Ordered Date Performed Result Body Sit e EKG 10/12/2024 10/12/2024 Normal Encounters Encounter Location Date Provider Diagnosis [id number] [place] [address] 05/19/2025 Provider Migration [facility] [address] [place], [place] [phone] 09/14/2024 Milo Joshi Chronic viral hepatitis C B18.2 ; Radiculopathy, lumbar region M54.16 ; Encounter for screening for COVID-19 Z11.52 ; Opioid abuse, uncomplicated F11.10 ; Essential (primary) hypertension I10 ; Anxiety disorder, unspecified F41.9 ; Nicotine dependence, cigarettes, uncomplicated F17.210 ; Gastro-esophageal reflux disease without esophagitis K21.9 ; Moderate persistent asthma, uncomplicated J45.40 ; Sheltered homelessness Z59.01 ; Obesity, unspecified E66.9 and Body mass index [BMI] 37.0-37.9, adult Z68.37 [facility] [address] [id number] 09/21/2024 [facility] Bipolar disorder, unspecified F31.9 [facility] [address] [place] [address] [place] [id number] 10/04/2024 Melanie Monge Bipolar disorder, current episode depressed, moderate F31.32 ; Insomnia due to other mental disorder F51.05 ; Cocaine abuse, in remission F14.11 ; Anxiety disorder, unspecified F41.9 ; Post-traumatic stress disorder, chronic F43.12 and Opioid abuse, uncomplicated F11.[address] [address] 10/12/2024 Milo Joshi Encounter for screening for COVID-19 Z11.52 ; Cervicalgia M54.2 ; Obesity, unspecified E66.9 ; Sheltered homelessness Z59.01 ; Bipolar disorder, current episode depressed, mild F31.31 ; Essential (primary) hypertension I10 ; Concussion with loss of consciousness of unspecified duration, initial encounter S06.0X9A and Other psychoactive substance abuse, uncomplicated F19.[address] [place] [id number] 11/14/2024 Milo Balder Chest pain, unspecified R07.9 and Disappearance and of family member Z63.4 [facility] [address] [id number] 11/16/2024 Nursing [facility] Encounter for screening, unspecified Z13.9 [facility] [address] [id number] 11/21/2024 [facility] [address] [place] [address] [place] [id number] 11/24/2024 Melanie Monge Insomnia due to other mental disorder F51.05 ; Bipolar disorder, current episode depressed, moderate F31.32 ; Cocaine abuse, in remission F14.11 ; Anxiety disorder, unspecified F41.9 ; Post-traumatic stress disorder, chronic F43.12 ; Opioid abuse, uncomplicated F11.10 ; Disappearance and of family member Z63.4 and Encounter for screening for COVID-19 Z11.52 [facility] [address] [place] [address] [facility] [place] [id number] 12/21/2024 Melanie Monge Insomnia due to other mental disorder F51.05 ; Cocaine abuse, in remission F14.11 ; Bipolar disorder, current episode depressed, moderate F31.32 ; Anxiety disorder, unspecified F41.9 ; Post-traumatic stress disorder, chronic F43.12 ; Opioid abuse, uncomplicated F11.10 ; Disappearance and of family member Z63.4 and Encounter for screening for COVID-19 Z11.52 [facility] [address] [place] [id number] 07/14/2024 Iris Byrd [address] [address] 08/15/2024 Milo Joshi [address] [address] 09/14/2024 Milo Joshi [address] [address] 09/14/2024 Milo Joshi [address] [address] 09/14/2024 Milo Joshi [address] [address] 10/02/2024 Melanie Monge [address] [address] 10/05/2024 Milo Joshi Post-traumatic stress disorder, chronic F43.[address] [address] 10/12/2024 Milo Joshi [address] [address] 10/13/2024 Milo Joshi [address] [address] 11/16/2024 [facility] [address] [place] [id number] 11/16/2024 Milo [facility] [address] [place] [id number] 11/17/2024 Milo Joshi [address] [address] 11/28/2024 Milo Joshi [address] [address] 12/21/2024 Milo Joshi [address] [address] 01/16/2025 Milo Joshi [address] [address] 02/07/2025 Milo Joshi [address] [address] 02/20/2025 Milo Joshi [address] [address] 04/06/2025 Milo Joshi [address] [address] 04/06/2025 Milo Joshi [address] [address] 04/24/2025 Milo Joshi Assessments Encounter Date Diagnosis (ICD Code) Assessment Notes Treatment Notes Treatment Clinical Notes Section Notes 09/14/2024 Chronic viral hepatitis C (ICD-10 - B18.2) Per pateint treated with Mavyret but no responce. I feliciano need to reestablish VL and then genotype and retreat. Also LFTs and FIB r calculation 09/14/2024 Radiculopathy, lumbar region (ICD-10 - M54.16) Recurrnt right radiculitis. He says he wa soffered fusiion and wnats to avoid. Feliciano refer to PS[facility]S 09/21/2024 Bipolar disorder, unspecified (ICD-10 - F31.9) Called [facility] in [place] due to pt's rceiving daily methadone dose through N they could not guarantee any respite beds. Called [facility] they as well could not guarantee any beds locally but possily in [facility]. Having to report to [place] daily for methadone dosing would be challenging if pt was to be in a respite not in [place] or near [place] [facility]-1 hop picker for transport. Pt agreeable to go to [facility] ED for psych eval and possible volunteer admission to inpatient psych. Discussed it was guaranteed to get dosed for methadone and to restart psych meds. During visit pt was able to eat breakfast provided by [facility] in RN's office. Transportation provided to pt to assist with getting to [facility] for crisis eval and possible inpatient admission, pt given a copy of medical summary to take with him to ED. Pt will contact RN with updates when able. 10/04/2024 Bipolar disorder, current episode depressed, moderate (ICD-10 - F31.32) Reviewed hx of psychiatric illness, treatment received and medication trials with client. Discussed current medications as to indications, actions and side effects. Reviewed risks benefits of treatment versus non treatment. Medication education provided. Patient given opportunity to ask questions. Patient gives informed consent to proceed with prescribed treatment. 1. Mass ELECTRICAL TECHNICIAN INSTRUCTOR reviewed: see Exam 2. Medications: as above, received 1 week of refills from provider in [facility], will cont same doses and send 30 days 3. Cont psychotherapy: has appt 10/05/24 with Nusrat Torres [facility] 4. Labs/Procedures: has new lab orders from Dr. Joshi for Hep C and hepatic fxn 5. Exercise/Nutrition: sleep, regular exercise and nutrition all have a direct impact on our health and well-being. Keeping them in balance is especially important when we face stressful times in our lives. Eat balanced meals, get 6-8 hours of sleep a night, daily walking as able. 6. Understands plan and verbalizes agreement, allowed time for clarifying questions. Lurasidone advantages include:no need for titration, once daily dosing, relatively low metabolic profile, relatively low QTc prolongation. Also approved for Bipolar Depression with off label use for impulse control disorders, treatment resistant depression. Common S/E of Antipsychotic Medication Lurasidone reviewed and may include but are not limited to: sedation (dose related), akathisia (dose related), nausea, parkinsonism, agitation. Serious but rare side effects include orthostatic hypotension and syncope (rarely). Will require regular monitoring of wt, BP, Hgb A1C, lipids and AIMS exam. Take with dinner and 350 calories. Administration with food at least 350 calories increases bioavailability two-fold, fat content of meal is not important. Chlorpromazine FDA indications psychosis, ana. Off label use : Bipolar D/O, behavioral disturbances, impulse control disorder. Common side effects include but are not limited to : sedation, orthostasis, tachycardia, drowsiness, dry mouth, constipation, blurred vision, prolactin elevation. Serious but rare : skin pigmentation and ocular changes (both dose related); jaundice. FDA indications psychosis, ana. Off label use : Bipolar D/O, behavioral disturbances, impulse control disorder. Common side effects include but are not limited to : sedation, orthostasis, tachycardia, drowsiness, dry mouth, constipation, blurred vision, prolactin elevation. Serious but rare : skin pigmentation and ocular changes (both dose related); jaundice. 10/12/2024 Cervicalgia (ICD-10 - M54.2) I will review [facility] notes but seems to have recovred well. Discussed prevention. Noite for bed rest for next day [facility] will help 10/12/2024 Encounter for screening for COVID-19 (ICD-10 - [...] you are having concerning symptoms for COVID-19. 11/14/2024 Chest pain, unspecified (ICD-10 - R07.9) discussed injury and focalk chest wall pain. decided to get xray tomorrow. shay brown desriced 11/14/2024 Disappearance and of family member (ICD-10 - Z63.4) LEngthy dioscussion and support., his wiufe is a big help. he know we are there vesna help at any time 11/16/2024 Encounter for screening, unspecified (ICD-10 - Z13.9) Information provided by pt relayed to provider in a TE. Blood sugar also assessed, reading was high pt denies eating prior to bs assessment but did drink half of a coffee which has a little sugar and cream. Discussed with pt that he is going through alot emotional and that can cause anxiety and possibly elevate his body temp. Requested pt monitor symptoms and report back if they worsen and to follow up with RN next week if not sooner. Pt had to leave to go to [facility] due to transport arriving. 11/24/2024 Insomnia due to other mental disorder (ICD-10 - F51.05) Mirtazapine has no sexual side effects or GI side effects and is useful in depressed pts with anxiety and or insomnia. Aware may cause weight gain. Most common side effects include but are not limited to: somnolence, increased appetite, weight gain. Serious but rare side effects include but are not limited to: agranulocytosis or neutropenia with or without infection. Off label use for: Panic D/O, PTSD, NANCY, insomnia, nausea, appetite stimulant, methamphetamine use d/o. 12/21/2024 Insomnia due to other mental disorder (ICD-10 - F51.05) Mirtazapine has no sexual side effects or GI side effects and is useful in depressed pts with anxiety and or insomnia. Aware may cause weight gain. Most common side effects include but are not limited to: somnolence, increased appetite, weight gain. Serious but rare side effects include but are not limited to: agranulocytosis or neutropenia with or without infection. Off label use for: Panic D/O, PTSD, NANCY, insomnia, nausea, appetite stimulant, methamphetamine use d/o. 10/05/2024 Post-traumatic stress disorder, chronic (ICD-10 - F43.12) 09/14/2024 Encounter for screening for COVID-19 (ICD-10 - [...] you are having concerning symptoms for COVID-19. 10/04/2024 Insomnia due to other mental disorder (ICD-10 - F51.05) Mirtazapine has no sexual side effects or GI side effects and is useful in depressed pts with anxiety and or insomnia. Aware may cause weight gain. Most common side effects include but are not limited to: somnolence, increased appetite, weight gain. Serious but rare side effects include but are not limited to: agranulocytosis or neutropenia with or without infection. Off label use for: Panic D/O, PTSD, NANCY, insomnia, nausea, appetite stimulant, methamphetamine use d/o. 10/12/2024 Obesity, unspecified (ICD-10 - E66.9) deferred 11/24/2024 Bipolar disorder, current episode depressed, moderate (ICD-10 - F31.32) Reviewed hx of psychiatric illness, treatment received and medication trials with client. Discussed current medications as to indications, actions and side effects. Reviewed risks benefits of treatment versus non treatment. Medication education provided. Patient given opportunity to ask questions. Patient gives informed consent to proceed with prescribed treatment. 1. Mass ELECTRICAL TECHNICIAN INSTRUCTOR reviewed: see Exam 2. Medications: as above 3. Cont psychotherapy: has appt next week with Nusrat Conteh [facility]. 4. Labs/Procedures: no new labs for review 5. Exercise/Nutrition: sleep, regular exercise and nutrition all have a direct impact on our health and well-being. Keeping them in balance is especially important when we face stressful times in our lives. Eat balanced meals, get 6-8 hours of sleep a night, daily walking as able. 6. Understands plan and verbalizes agreement, allowed time for clarifying questions. Lurasidone advantages include:no need for titration, once daily dosing, relatively low metabolic profile, relatively low QTc prolongation. Also approved for Bipolar Depression with off label use for impulse control disorders, treatment resistant depression. Common S/E of Antipsychotic Medication Lurasidone reviewed and may include but are not limited to: sedation (dose related), akathisia (dose related), nausea, parkinsonism, agitation. Serious but rare side effects include orthostatic hypotension and syncope (rarely). Will require regular monitoring of wt, BP, Hgb A1C, lipids and AIMS exam. Take with dinner and 350 calories. Administration with food at least 350 calories increases bioavailability two-fold, fat content of meal is not important. Chlorpromazine FDA indications psychosis, ana. Off label use : Bipolar D/O, behavioral disturbances, impulse control disorder. Common side effects include but are not limited to : sedation, orthostasis, tachycardia, drowsiness, dry mouth, constipation, blurred vision, prolactin elevation. Serious but rare : skin pigmentation and ocular changes (both dose related); jaundice. FDA indications psychosis, ana. Off label use : Bipolar D/O, behavioral disturbances, impulse control disorder. Common side effects include but are not limited to : sedation, orthostasis, tachycardia, drowsiness, dry mouth, constipation, blurred vision, prolactin elevation. Serious but rare : skin pigmentation and ocular changes (both dose related); jaundice. 11/24/2024 Cocaine abuse, in remission (ICD-10 - F14.11) Currently in remission. 12/21/2024 Cocaine abuse, in remission (ICD-10 - F14.11) Currently in remission. 09/14/2024 Opioid abuse, uncomplicated (ICD-10 - F11.10) For present stable on 70 mg methadone 10/04/2024 Cocaine abuse, in remission (ICD-10 - F14.11) Currently in remission. 10/12/2024 Sheltered homelessness (ICD-10 - Z59.01) hopes to be able to move out. 11/24/2024 Anxiety disorder, unspecified (ICD-10 - F41.9) Common side effects of Hydroxyzine/Vistari l include but are not limited to: dizziness, drowsiness, blurred vision, dry mouth, stomach upset, or headache. Do not drive or perform activities which require concentration until you understand how Hydroxyzine affects you. Common S/E of Gabapentin include but are not limited to: dizziness, somnolence, ataxia, wt gain. Serious but rare side effects multiorgan sensitivity DRESS), respiratory depression. FDA indicated for RLS, partial seizures, post herpetic neuralgia Off label uses: anxiety d/o, withdrawal from alcohol or benzos, alcohol dependence. 12/21/2024 Bipolar disorder, current episode depressed, moderate (ICD-10 - F31.32) Reviewed hx of psychiatric illness, treatment received and medication trials with client. Discussed current medications as to indications, actions and side effects. Reviewed risks benefits of treatment versus non treatment. Medication education provided. Patient given opportunity to ask questions. Patient gives informed consent to proceed with prescribed treatment. 1. Mass ELECTRICAL TECHNICIAN INSTRUCTOR reviewed: see Exam 2. Medications: as above 3. Psychotherapy: sent TE to Elodia Torres [facility].\ that clt would like to re-engage in therapy. 4. Labs/Procedures: no new labs for review 5. Exercise/Nutrition: sleep, regular exercise and nutrition all have a direct impact on our health and well-being. Keeping them in balance is especially important when we face stressful times in our lives. Eat balanced meals, get 6-8 hours of sleep a night, daily walking as able. 6. Understands plan and verbalizes agreement, allowed time for clarifying questions. Lurasidone advantages include:no need for titration, once daily dosing, relatively low metabolic profile, relatively low QTc prolongation. Also approved for Bipolar Depression with off label use for impulse control disorders, treatment resistant depression. Common S/E of Antipsychotic Medication Lurasidone reviewed and may include but are not limited to: sedation (dose related), akathisia (dose related), nausea, parkinsonism, agitation. Serious but rare side effects include orthostatic hypotension and syncope (rarely). Will require regular monitoring of wt, BP, Hgb A1C, lipids and AIMS exam. Take with dinner and 350 calories. Administration with food at least 350 calories increases bioavailability two-fold, fat content of meal is not important. Chlorpromazine FDA indications psychosis, ana. Off label use : Bipolar D/O, behavioral disturbances, impulse control disorder. Common side effects include but are not limited to : sedation, orthostasis, tachycardia, drowsiness, dry mouth, constipation, blurred vision, prolactin elevation. Serious but rare : skin pigmentation and ocular changes (both dose related); jaundice. FDA indications psychosis, ana. Off label use : Bipolar D/O, behavioral disturbances, impulse control disorder. Common side effects include but are not limited to : sedation, orthostasis, tachycardia, drowsiness, dry mouth, constipation, blurred vision, prolactin elevation. Serious but rare : skin pigmentation and ocular changes (both dose related); jaundice. 12/21/2024 Anxiety disorder, unspecified (ICD-10 - F41.9) Common side effects of Hydroxyzine/Vistari l include but are not limited to: dizziness, drowsiness, blurred vision, dry mouth, stomach upset, or headache. Do not drive or perform activities which require concentration until you understand how Hydroxyzine affects you. Common S/E of Gabapentin include but are not limited to: dizziness, somnolence, ataxia, wt gain. Serious but rare side effects multiorgan sensitivity DRESS), respiratory depression. FDA indicated for RLS, partial seizures, post herpetic neuralgia Off label uses: anxiety d/o, withdrawal from alcohol or benzos, alcohol dependence. 09/14/2024 Essential (primary) hypertension (ICD-10 - I10) BP good on no meds. Dietmreveiwed 10/04/2024 Anxiety disorder, unspecified (ICD-10 - F41.9) Common side effects of Hydroxyzine/Vistari l include but are not limited to: dizziness, drowsiness, blurred vision, dry mouth, stomach upset, or headache. Do not drive or perform activities which require concentration until you understand how Hydroxyzine affects you. Common S/E of Gabapentin include but are not limited to: dizziness, somnolence, ataxia, wt gain. Serious but rare side effects multiorgan sensitivity DRESS), respiratory depression. FDA indicated for RLS, partial seizures, post herpetic neuralgia Off label uses: anxiety d/o, withdrawal from alcohol or benzos, alcohol dependence. 10/12/2024 Bipolar disorder, current episode depressed, mild (ICD-10 - F31.31) Imrpoved form afew weeks ago when he was off meds. Working with here 11/24/2024 Post-traumatic stress disorder, chronic (ICD-10 - F43.12) Prazosin S/E reviewed with client. Common s/e include but are not limited to: somnolence, dizziness, headache, weakness. Serious but rare side effects include but are not limited to : orthostasis and syncope; prolonged erections and priapism have been reported. Advised to rise slowly from seated or lying positions. 12/21/2024 Post-traumatic stress disorder, chronic (ICD-10 - F43.12) Prazosin S/E reviewed with client. Common s/e include but are not limited to: somnolence, dizziness, headache, weakness. Serious but rare side effects include but are not limited to : orthostasis and syncope; prolonged erections and priapism have been reported. Advised to rise slowly from seated or lying positions. 09/14/2024 Anxiety disorder, unspecified (ICD-10 - F41.9) He is on ne meds right now. Booking tosee precscriber here. His med mix in complicated 10/04/2024 Post-traumatic stress disorder, chronic (ICD-10 - F43.12) Prazosin S/E reviewed with client. Common s/e include but are not limited to: somnolence, dizziness, headache, weakness. Serious but rare side effects include but are not limited to : orthostasis and syncope; prolonged erections and priapism have been reported. Advised to rise slowly from seated or lying positions. 10/12/2024 Essential (primary) hypertension (ICD-10 - I10) BP a bit up frm usual. On no meds and feliciano need to asses more at f/u and see his trend 11/24/2024 Opioid abuse, uncomplicated (ICD-10 - F11.10) Doing well in recovery. 12/21/2024 Opioid abuse, uncomplicated (ICD-10 - F11.10) Doing well in recovery. 09/14/2024 Nicotine dependence, cigarettes, uncomplicated (ICD-10 - F17.210) SCutting back on own nbut gum helps-rx sent 10/04/2024 Opioid abuse, uncomplicated (ICD-10 - F11.10) Doing well in recovery. 10/12/2024 Concussion with loss of consciousness of unspecified duration, initial encounter (ICD-10 - S06.0X9A) seems to have recovered well. Feliciano check [facility] notes 11/24/2024 Disappearance and of family member (ICD-10 - Z63.4) Grievinf sudden of mother. Has therapy appt next week. 12/21/2024 Disappearance and of family member (ICD-10 - Z63.4) Grieving sudden of mother. Will p;bryan to re-engage with therapist. 09/14/2024 Gastro-esophageal reflux disease without esophagitis (ICD-10 - K21.9) Longstanding GERD. Does well with PPI, not H2 bret. also needs to olose weihgt 10/12/2024 Other psychoactive substance abuse, uncomplicated (ICD-10 - F19.10) doing better at oresent 11/24/2024 Encounter for screening for COVID-19 (ICD-10 - Z11.52) Covid verbal screening negative. 12/21/2024 Encounter for screening for COVID-19 (ICD-10 - Z11.52) Covid verbal screening negative. 09/14/2024 Moderate persistent asthma, uncomplicated (ICD-10 - J45.40) Bettercontrolled-re new Dulera and albuterol 09/14/2024 Sheltered homelessness (ICD-10 - Z59.01) [facility] [place] [facility], hopes for room 09/14/2024 Obesity, unspecified (ICD-10 - E66.9) He is wilong to start phentermine and if unsccessful then Zepbound. SE's explained 09/14/2024 Body mass index [BMI] 37.0-37.9, adult (ICD-10 - Z68.37) makes back, GERD and stahma worse 08/15/2024 Other 09/28/2024 Other 10/12/2024 Other NOTE : TIME SPE NT ON VISIT: 11/23/2024 Other 01/16/2025 Other 09/14/2024 Other Recommended vac cameron at pharmacy iunclkuding flu, Tdap, [id number] HEpB and COVID 10/04/2024 Other Time spent in visit: 15 minutes 10/12/2024 Other 11/14/2024 Other 20 minute call HCM issues deferred 11/24/2024 Other Time spent in visit: 20 minutes 12/21/2024 Other Time spent in visit: 25 minutes Plan Of Treatment Pending Test Test Name Order Date HEPATIC FUNCTION PANEL 09/14/2024 HEPATITIS C VIRAL RNA, QN REAL TIME PCR W/REFLS 09/14/2024 HEPATITIS C VIRAL RNA GENOTYPE, LIPA(R) 09/14/2024 CHLAMYDIA / GC DNA W RFLX 02/07/2024 GLYCOHEMOGLOBIN PROFILE 02/07/2024 HIV 1 AND 2 ANTIBODY SCREEN 02/07/2024 TREPONEMAL AB 02/07/2024 QUANTIFERON(R)-TB GOLD PLUS, 1 TUBE 11/2023 Insurance Providers Payer Name Payer Address Payer Phone Subscriber Number Group Number Insured Name Patient Relationship to Insured Coverage Start Date Coverage End Date [place] Medicaid C3 [address] [place], [place] [id number] Rey Abad Self - patient is the insured 4 [place] [employer] [address] [place] [address] [id number] Pollo Rey Self - patient is the insured 6 Medical (General) History Medical History History ICD Code Bipolar Disorder PTSD ADHD Polysub abuse Hep C-DX by [facility] no f/u since Rt sided sciatica Tics Opioid abuse, uncomplicated Body mass index [BMI] 40.0-44.9, adult Z 68.41 Surgical History Surgery Date(Month/Year) Laser surgery on back (L5, S1 ) 2008, 04 Hospitalization History Reason Date(Month/Year) [facility] 2023 Psych admit, [facility] 01/2024 Psych admit [facility] in [place] [address] [facility], [facility] 2022 [facility] pain U/S reveals bake r's Cyst Rt knee F/U DR [facility] [phone] 05/22/2020 [facility] ?acalculous cholecystitis- referr ed to [facility] HIDA scan 12/21/18 [facility]dual DX admission 04/2018 numerous detox admissions
--- OUTSIDE RECORDS SUMMARY | 2025-06-21 19:54 | XMS_ITS | Clinical Summary ---
Author Organization [employer] Address [address] [place] [address] Care Team Providers Care Subgrade Tester Name Role Phone Unavailable Primary Care Provider Unavailabl e Encounters Date Type Department Care Team Description 03/28/2025 Patient Outreach [facility] [address] [place] [address] Brannon Dia Recovery Supports from Last 3 Months Social History Tobacco Use Types Packs/Day Years Used Date Smoking Tobacco: Never Assessed Sex and Gender Information Value Date Recorded Sex Assigned at Male 03/28/2025 10:07 AM EDT Legal Sex Male 10:05 AM EDT Gender Identity Male 03/28/2025 10:07 AM EDT Sexual Orientation Straight 03/28/2025 10 :07 AM EDT Plan of Treatment Health Maintenance Due Date Last Done Comments Depression Screening 1984 HIV Screening 1984 Lipid Panel 1984 SDOH Screening 1984 Disability Screening 1984 Alcohol/Substance Use Screening 1996 Tobacco Screening 1996 Family Planning (PISQ) 01/29/1999 HPV Vaccines (1 - Male 3-dos e series) 01/29/1999 Hepatitis C Screening 01/29/2002 DTaP/Tdap/Td Vaccines (1 - Tdap) 01/29/2003 Hepatitis B Vaccines (1 of 3 - 19+ 3-dose series) 01/29/2003 COVID-19 Vaccine (1 - 2023-2 5 season) 2025 Influenza Vaccine (#1) 2025 Zoster Vaccines (1 of 2) 01/29/2034 RSV Patients and Pa tients Aged 60 years or older (1 - 1-dose 75+ series) 01/29/2059 HIB Vaccines Aged Out No longer eligi ble based on patient's age to complete this topic Hepatitis A Vaccines Aged Out No long er eligible based on patient's age to complete this topic IPV Vaccines Aged Out No longer eligi ble based on patient's age to complete this topic Meningococcal B Vaccine Aged Out No l onger eligible based on patient's age to complete this topic Meningococcal Vaccine Aged Out No bertrand eduardo eligible based on patient's age to complete this topic Pneumococcal Vaccine: Pediat rics (0 to 5 Years) and At-Risk Patients (6 to 49) Years Aged Out No longer eligible b ased on patient's age to complete this topic RSV under 20 months Aged Out No longe r eligible based on patient's age to complete this topic Rotavirus Vaccines Aged Out No longer eligible based on patient's age to complete this topic Insurance [facility] C3
--- OUTSIDE RECORDS SUMMARY | 2025-06-21 19:54 | XMS_ITS | Clinical Summary ---
Author Organization [facility] Address [address] [place] [address] Phone Care Team Providers Care Choke Reamer Name Role Phone Physician, No Pcp Primary Care Provider Unavaila ble Allergies Active Allergy Reactions Criticality Noted Date Comments Penicillins Anaphylaxis High 05/30/2025 Encounters Date Type Department Care Team Description 05/30/2025 2:18 AM EDT - 05/30/2025 3:55 AM EDT Emergency [facility] Emergency [address] [place] [address] Jose Sierra MD Chest pain, unspecified type (Primary Dx) Discharge Disposition: Home or Self Care from Last 3 Months Social History Tobacco Use Types Packs/Day Years Used Date Smoking Tobacco: Never Assessed Sex and Gender Information Value Date Recorded Sex Assigned at Not on file Legal Sex Male 6:22 AM EST Gender Identity Not on file Sexual Orientation Not on file Last Filed Vital Signs Vital Sign Reading Time Taken Comments Blood Pressure 142/85 05/30/2025 2:59 AM EDT Pulse 80 05/30/2025 2:59 AM EDT Temperature 36.8 C (98.3 F) 05/30/2025 2:59 AM EDT Respiratory Rate 17 05/30/2025 2:59 AM EDT Oxygen Saturation 97% 05/30/2025 2:59 AM EDT Inhaled Oxygen Concentration - - Weight 104 kg (230 lb) 05/30/2025 12:11 AM EDT Height 182.9 cm (6') 05/30/2025 12:11 AM EDT Body Mass Index 31.19 05/30/2025 12:11 AM EDT Plan of Treatment Health Maintenance Due Date Last Done Comments DTaP,Tdap,and Td Vaccines (1 - Tdap) 01/29/2003 Hepatitis B Vaccines (1 of 3 - 19+ 3-dose series) 01/29/2003 HPV Vaccines (1 - 3-dose SCD M series) 01/29/2011 Cholesterol Screening (Lipid Panel) 08/09/2022 HIV Screening 08/09/2022 Hepatitis C Screening 08/09/2022 Social Influencers of Health Screening 08/09/2022 Depression Screening 09/06/2024 COVID-19 Vaccine (1 - 2023-2 5 season) 2025 Influenza Vaccine (#1) 2025 RSV Immunization Adult Patie nts (1 - 1-dose 75+ series) 01/29/2059 HIB Vaccines Aged Out No longer eligi ble based on patient's age to complete this topic Hepatitis A Vaccines Aged Out No long er eligible based on patient's age to complete this topic IPV Vaccines Aged Out No longer eligi ble based on patient's age to complete this topic MMR Vaccines Aged Out No longer eligi ble based on patient's age to complete this topic Meningococcal ACWY Vaccine Aged Out N o longer eligible based on patient's age to complete this topic Meningococcal B Vaccine Aged Out No l onger eligible based on patient's age to complete this topic Pneumococcal Vaccine: Pediat rics (0 to 5 Years) and At-Risk Patients (6 to 49 Years) Aged Out No longer eligible b ased on patient's age to complete this topic RSV Immunization Patients Un farrah 20 months Aged Out No longer eligible b ased on patient's age to complete this topic Varicella Vaccines Aged Out No longer eligible based on patient's age to complete this topic Procedures Procedure Name Priority Date/Time Associated Diagnosis Comments XR HIP 2-3 VIEWS RIGHT STAT 05/30/2025 2:35 AM EDT XR CHEST 2 VIEWS STAT 05/30/2025 2:35 AM EDT ECG 12-LEAD STAT 05/30/2025 2:14 AM EDT CBC WITH AUTO DIFFERENTIAL STAT 05/30/2025 2:09 AM EDT TROPONIN I HIGH SENSITIVITY Timed 05/30/2025 2:09 AM EDT BASIC METABOLIC PANEL STAT 05/30/2025 2:09 AM EDT CBC AND DIFFERENTIAL STAT 05/30/2025 2:09 AM EDT ECG ANNOTATED 05/30/2025 from Last 3 Months Results * XR Hip 2-3 Views Right (05/30/2025 2:35 AM EDT) Anatomical Region Laterality Modality Lower Extremities, Hip Right Radiograp hic Imaging 05/30/2025 9:10 AM EDT Impressions 05/30/2025 9:11 AM EDT Impression: Normal right hip series. Telerad JACKELIN ([id number]) -------- FINAL REPORT -------- Dictated By: Laly Nelson Dictated Date: 05/30/2025 09:10 ET Assigned Physician: Laly Nelson Reviewed and Electronically Signed By: Laly Nelson Signed Date: 05/30/2025 09:11 ET Workstation ID: [id number] Transcribed By: Self Edit Transcribed Date: 05/30/2025 09:10 ET Narrative 05/30/2025 9:11 AM EDT History: Right hip pain for several months. Findings: An AP view of the pelvis to include both hips and AP and frog-leg lateral views of the right hip are submitted. The hip joints are well-maintained bilaterally. Femoral head contours are smooth. No significant arthritic change is seen. No fractures or osseous destructive lesions are demonstrated. The pelvic bones are intact. The sacroiliac joints are well-maintained. The overlying soft tissues are unremarkable. Procedure Note Laly Nelson MD - 05/30/2025 History: Right hip pain for several months. Findings: An AP view of the pelvis to include both hips and AP and frog-leg lateralviews of the right hip are submitted. The hip joints are well-maintained bilaterally. Femoral head contours aresmooth. No significant arthritic change is seen. No fractures or osseousdestructive lesions are demonstrated. The pelvic bones are intact. The sacroiliac joints are well-maintained. The overlying soft tissues are unremarkable. IMPRESSION: Impression: Normal right hip series. Telerad PA ([id number]) -------- FINAL REPORT -------- Dictated By: Laly Nelson Dictated Date: 05/30/2025 09:10 ET Assigned Physician: Laly Nelson Reviewed and Electronically Signed By: Laly Nelson Signed Date: 05/30/2025 09:11 ET Workstation ID: [id number] Transcribed By: Self Edit Transcribed Date: 05/30/2025 09:10 ET Jose Sierra MD IMG XR PROCEDURES Final Re sult * XR Chest 2 Views (05/30/2025 2:35 AM EDT) Anatomical Region Laterality Modality Body Radiographic Charlene ging 05/30/2025 9:08 AM EDT Impressions 05/30/2025 9:10 AM EDT Impression: 1. Hyperinflated lungs. 2. Probable pleural scarring at the right base, unchanged from the previous study. Telerad PA ([id number]) -------- FINAL REPORT -------- Dictated By: Laly Nelson Dictated Date: 05/30/2025 09:08 ET Assigned Physician: Laly Nelson Reviewed and Electronically Signed By: Laly Nelson Signed Date: 05/30/2025 09:10 ET Workstation ID: [id number] Transcribed By: Self Edit Transcribed Date: 05/30/2025 09:08 ET Narrative 05/30/2025 9:10 AM EDT History: Dyspnea. Comparison: 09/26/23 Findings: PA and lateral views. The cardiac silhouette remains normal in size. Hilar contours and pulmonary vascularity appear normal. The lungs are hyperinflated. The right costophrenic angle is blunted, unchanged from the previous study, suggesting pleural scarring. The lungs are otherwise clear. The regional skeleton is intact. Procedure Note Laly Nelson MD - 05/30/2025 History: Dyspnea. Comparison: 09/26/23 Findings: PA and lateral views. The cardiac silhouette remains normal in size. Hilarcontours and pulmonary vascularity appear normal. The lungs arehyperinflated. The right costophrenic angle is blunted, unchanged from theprevious study, suggesting pleural scarring. The lungs are otherwiseclear. The regional skeleton is intact. IMPRESSION: Impression: 1. Hyperinflated lungs. 2. Probable pleural scarring at the right base, unchanged from theprevious study. Telerad PA ([id number]) -------- FINAL REPORT -------- Dictated By: Laly Nelson Dictated Date: 05/30/2025 09:08 ET Assigned Physician: Laly Nelson Reviewed and Electronically Signed By: Laly Nelson Signed Date: 05/30/2025 09:10 ET Workstation ID: [id number] Transcribed By: Self Edit Transcribed Date: 05/30/2025 09:08 ET Jose Sierra MD IMG XR PROCEDURES Final Re sult * ECG 12 lead (05/30/2025 2:14 AM EDT) [facility] Ventricular Rate ECG 70 BPM GEMUSE Atrial Rate 70 BPM GEMUSE P-R Interval 148 ms GEMUSE QRS Duration 92 ms GEMUSE Q-T Interval 400 ms GEMUSE QTc 432 ms GEMUSE P Wave [place] 23 degrees GEMUSE R [place] 32 degrees GEMUSE T [place] 49 degrees GEMUSE ECG Interpretation Normal sinus rhythm Normal ECG When compared with ECG of 26-SEP-2023 13:18, No significant change was found Confirmed by JILLIAN SANTOS ([id number]) on 05/31/2025 11:25:48 AM GEMUSE 05/30/2025 2:14 AM EDT 05/31/2025 11:25 AM EDT Jose Sierra MD ECG ORDERABLES Final Resu lt GEMUSE * Troponin I high sensitivity (05/30/2025 2:09 AM EDT) [facility] High Sensitivity Troponin I 8 <=79 ng/L LAB CHEMISTRY METHOD 05/30/2025 2:51 AM EDT [facility] Blood Venous blood specimen / Unknown Venipuncture / Unknown 05/30/2025 2:09 AM EDT 05/30/2025 2:12 AM EDT Narrative [facility] - 05/30/2025 2:51 AM EDT High levels of biotin in samples may falsely decrease hsTroponin values. Use caution when interpreting hsTroponin results in patients taking biotin who exhibit renal impairment (eGFR <60) or in patients taking more than 20 mg/day of biotin. us Jose Sierra MD LAB BLOOD ORDERABLES Final Result [facility] [address] [place] [address], * (ABNORMAL) CBC auto differential (05/30/2025 2:09 AM EDT) WBC 6.7 4.8 - 10.8 K/mcL LAB HEMETOLOGY METHOD 05/30/2025 2:50 AM EDT [facility] RBC 3.70(L) 4.50 - 5.50 M/mcL LAB HEMETOLOGY METHOD 05/30/2025 2:50 AM EDT [facility] Hemoglobin 11.4(L) 13.5 - 17.5 g/dL LAB HEMETOLOGY METHOD 05/30/2025 2:50 AM EDT [facility] Hematocrit 33.5(L) 42.0 - 54.0 % LAB HEMETOLOGY METHOD 05/30/2025 2:50 AM EDT [facility] MCV 89.8 79.0 - 98.0 FL LAB HEMETOLOGY METHOD 05/30/2025 2:50 AM EDT [facility] MCH 30.6 27.0 - 32.0 pcg LAB HEMETOLOGY METHOD 05/30/2025 2:50 AM [facility] MCHC 34.0 32.0 - 37.0 g/dL LAB HEMETOLOGY METHOD 05/30/2025 2:50 AM [facility] RDW 13.1 11.0 - 15.0 % LAB HEMETOLOGY METHOD 05/30/2025 2:50 AM [facility] Platelets 381 130 - 400 K/mcL LAB HEMETOLOGY METHOD 05/30/2025 2:50 AM [facility] MPV 9.7 7.0 - 11.0 FL LAB HEMETOLOGY METHOD 05/30/2025 2:50 AM [facility] NRBC 0.0 <1.0 % LAB HEMETOLOGY METHOD 05/30/2025 2:50 AM [facility] NRBC Absolute 0.00 <0.10 K/mcL LAB HEMETOLOGY METHOD 05/30/2025 2:50 AM [facility] Neutrophils Relative 66.2 % LAB HEMETOLOGY METHOD 05/30/2025 2:50 AM [facility] Lymphocytes Relative 24.9 % LAB HEMETOLOGY METHOD 05/30/2025 2:50 AM [facility] Monocytes Relative 7.1 % LAB HEMETOLOGY METHOD 05/30/2025 2:50 AM [facility] Eosinophils Relative 1.3 % LAB HEMETOLOGY METHOD 05/30/2025 2:50 AM [facility] Basophils Relative 0.4 % LAB HEMETOLOGY METHOD 05/30/2025 2:50 AM [facility] Immature Granulocytes Relative 0.1 % LAB HEMETOLOGY METHOD 05/30/2025 2:50 AM [facility] Neutrophils Absolute 4.45 1.50 - 7.00 K/mcL LAB HEMETOLOGY METHOD 05/30/2025 2:50 AM EDT [facility] Lymphocytes Absolute 1.68 1.00 - 5.00 K/mcL LAB HEMETOLOGY METHOD 05/30/2025 2:50 AM EDT [facility] Monocytes Absolute 0.48 0.20 - 1.00 K/mcL LAB HEMETOLOGY METHOD 05/30/2025 2:50 AM EDT [facility] Eosinophils Absolute 0.09 0.00 - 0.50 K/mcL LAB HEMETOLOGY METHOD 05/30/2025 2:50 AM EDT [facility] Basophils Absolute 0.03 0.00 - 0.20 K/mcL LAB HEMETOLOGY METHOD 05/30/2025 2:50 AM EDT [facility] Immature Granulocytes Absolute 0.01 0.00 - 0.03 K/mcL LAB HEMETOLOGY METHOD 05/30/2025 2:50 AM EDT [facility] Blood Venous blood specimen / Unknown Venipuncture / Unknown 05/30/2025 2:09 AM EDT 05/30/2025 2:12 AM EDT Jose Sierra MD LAB BLOOD ORDERABLES Final Result [facility] [address] [place] [address], * (ABNORMAL) Basic metabolic panel (05/30/2025 2:09 AM EDT) Sodium 136 133 - 145 mmol/L LAB CHEMISTRY METHOD 05/30/2025 2:48 AM EDT [facility] Potassium 3.7 3.5 - 5.5 mmol/L LAB CHEMISTRY METHOD 05/30/2025 2:48 AM T [facility] Chloride 104 96 - 110 mmol/L LAB CHEMISTRY METHOD 05/30/2025 2:48 AM EDT [facility] CO2 26 21 - 32 mmol/L LAB CHEMISTRY METHOD 05/30/2025 2:48 AM T [facility] Anion Gap 6 3 - 11 LAB CHEMISTRY METHOD 05/30/2025 2:48 AM [facility] Glucose 106(H) 70 - 100 mg/dL LAB CHEMISTRY METHOD 05/30/2025 2:48 AM [facility] BUN 7 5 - 25 mg/dL LAB CHEMISTRY METHOD 05/30/2025 2:48 AM [facility] Creatinine 0.80 0.70 - 1.30 mg/dL LAB CHEMISTRY METHOD 05/30/2025 2:48 AM [facility] eGFR 114 >=60 mL/min/1. 73m2 LAB CHEMISTRY METHOD 05/30/2025 2:48 AM [facility] Comment:Calculation based on the Chronic Kidney Disease Epidemiology Collaboration (CKD-EPI) equation refit without adjustment for race. BUN/Creatinine Ratio 8.8 LAB CHEMISTRY METHOD 05/30/2025 2:48 AM [facility] Calcium 9.2 8.5 - 10.5 mg/dL LAB CHEMISTRY METHOD 05/30/2025 2:48 AM [facility] Blood Venous blood specimen / Unknown Venipuncture / Unknown 05/30/2025 2:09 AM EDT 05/30/2025 2:12 AM EDT Jose Sierra MD LAB BLOOD ORDERABLES Final Result [facility] [address] [place] [address], * ECG-Annotated (05/30/2025) us Provider Onbase ECG ORDERABLES Final Result from Last 3 Months Insurance MEDICAID - [place] Care Teams Choke Reamer Relationship Specialty Start Date End Date Physician, No Pcp PCP - General 05/30/25
[2025-06-21 20:13] LABS: Cannabinoid Screen Urine Not Detected (Not Detect)
--- NOTE | 2025-06-21 21:13 | MHC.CARE ---
Pt was evaluated by the Care Team and found appropriate for IPLOC. A section 12 was signed and placed in his chart at this time.
[2025-06-21 23:48] VITALS: BMI 30.5
[2025-06-21 23:49] VITALS: BP 138/66; PULSE 97; RESP 15; TEMP 37.1; O2SAT 97
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
[2025-06-23 08:14] LABS: MANUAL DIFF FLAG NO
[2025-06-23 08:16] LABS: Hematocrit 39.2 % (42.0-52.0); Hemoglobin 13.0 g/dl (14.0-18.0); Imm Gran Abs Auto 0.01 X10*3/uL (0.00-0.03); Imm Gran Pct Auto 0.2 % (0.0-0.4); Lymphocytes Absolute Auto 1.2 X10*3/uL (1.2-4.9); Mean Corpuscular HGB Conc 33.2 g/dl (31.0-36.0); Mean Corpuscular Hemoglobin 30.7 pg (27.0-33.0); Mean Corpuscular Volume 92.5 fL (80.0-98.0); NRBC Abs Auto 0.000 X10*3/uL (0.0-0.012); NRBC Pct Auto 0.0 /100WBC (0.0-0.2); Platelet Count 232 X10*3/uL (160-400); Red Blood Count 4.24 X10*6/uL (4.60-5.80); White Blood Count 5.2 X10*3/uL (4.8-10.8)
[2025-06-23 08:46] LABS: Hemoglobin A1C 103.0076 umol/L; Total Hemoglobin (HGBA1C) 3287.1378 umol/L
[2025-06-23 08:52] LABS: Anion Gap 13 (12-20); Blood Urea Nitrogen 11 mg/dL (9-16); Calcium 9.1 mg/dL (8.4-10.2); Carbon Dioxide 25 mmol/L (22-29); Chloride 104 mmol/L (96-108); Creatinine Clr Calc Pharmacy 184.8; Estimated Glomerular Filt Rate > 60; Potassium 4.5 mmol/L (3.3-5.1); Sodium 137 mmol/L (135-145)
[2025-06-23 08:54] LABS: Alanine Aminotransferase 105 U/L (0-40); Albumin Level 3.8 g/dL (3.5-5.0); Alkaline Phosphatase 87 U/L (39-117); Anion Gap 13 (12-20); Aspartate Amino Transferase 89 U/L (5-37); Blood Urea Nitrogen 12 mg/dL (9-16); Calcium 9.2 mg/dL (8.4-10.2); Carbon Dioxide 24 mmol/L (22-29); Chloride 105 mmol/L (96-108); Cholesterol 164 mg/dL (<200); Creatinine Clr Calc Pharmacy 190.6; Estimated Glomerular Filt Rate > 60; HDL Cholesterol 57 mg/dL (>40); Potassium 4.5 mmol/L (3.3-5.1); Sodium 137 mmol/L (135-145); Total Protein 7.0 g/dL (6.5-8.0); Triglycerides 82 mg/dL (<150)
[2025-06-23 09:25] VITALS: BP 159/85; PULSE 69; TEMP 37.4; O2SAT 98
[2025-06-23] MEDS: buPROPion HCl XL 150 MG TAB.ER.24H PO (09:57)
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
[2025-06-23 21:49] VITALS: BP 149/79
[2025-06-23 21:53] VITALS: BP 149/79; PULSE 72; RESP 18; TEMP 37.2; O2SAT 98
[2025-06-24] MEDS: buPROPion HCl XL 150 MG TAB.ER.24H PO (07:53)
[2025-06-24 08:00] VITALS: BP 170/89; PULSE 85; TEMP 36.8; O2SAT 98
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
[2025-06-24] MEDS: Lidocaine 4 % Patch ADH..PATCH 1 PATCH TRANSDERMA (14:00)
[2025-06-24 19:53] VITALS: BP 158/88; PULSE 93; RESP 15; TEMP 36.8; O2SAT 97
[2025-06-25 08:00] VITALS: BP 165/86; PULSE 100; RESP 16; TEMP 2.6; TEMP 36.7; O2SAT 98
[2025-06-25] MEDS: buPROPion HCl XL 150 MG TAB.ER.24H PO ×2 (08:03→12:14)
[2025-06-25] MEDS: Lidocaine 4 % Patch ADH..PATCH 1 PATCH TRANSDERMA (10:01)
[2025-06-25] MEDS: Nicotine 21 MG PATCH.TD24 TRANSDERMA (10:03)
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
[2025-06-25] MEDS: Flu Vacc TS2025-26(6mo up)/PF 0.5 ML SYRINGE IM (14:33)
[2025-06-25 20:16] VITALS: BP 150/83
[2025-06-25] MEDS: Albuterol Sulfate 90 MCG 8 GM INHALER 2 PUFF INHALE (20:24)
[2025-06-25 21:00] VITALS: BP 150/83; PULSE 83; RESP 18; TEMP 36.1; O2SAT 95
[2025-06-26 08:00] VITALS: BP 138/86; PULSE 81; RESP 16; TEMP 36.4; O2SAT 98
[2025-06-26] MEDS: Albuterol Sulfate 90 MCG 8 GM INHALER 2 PUFF INHALE ×2 (08:02→11:30)
[2025-06-26] MEDS: buPROPion HCl XL 300 MG TAB.ER.24H PO (08:46)
[2025-06-26] MEDS: Nicotine 21 MG PATCH.TD24 TRANSDERMA (08:52)
[2025-06-26] MEDS: Lidocaine 4 % Patch ADH..PATCH 1 PATCH TRANSDERMA (08:53)
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
[2025-06-26] MEDS: guanFACINE HCl ER 1 MG TAB.ER.24H PO (15:04)
[2025-06-26] MEDS: Magnesium Hydrox/Alum Hydrox 30 ML ORAL.SUSP PO (19:57)
[2025-06-26 20:00] VITALS: BP 152/90; PULSE 109; RESP 16; TEMP 36.3; O2SAT 96
[2025-06-26 22:04] VITALS: BP 140/88
[2025-06-27] MEDS: Lidocaine 4 % Patch ADH..PATCH 1 PATCH TRANSDERMA (08:10)
[2025-06-27] MEDS: buPROPion HCl XL 300 MG TAB.ER.24H PO (08:10)
[2025-06-27] MEDS: guanFACINE HCl ER 1 MG TAB.ER.24H PO (08:10)
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
[2025-06-27] MEDS: Albuterol Sulfate 90 MCG 8 GM INHALER 2 PUFF INHALE (16:21)
[2025-06-27 18:00] LABS: Glucose, Whole Blood 113 mg/dL (60-115)
[2025-06-27 20:00] VITALS: BP 141/88; PULSE 110; RESP 16; TEMP 36.4; O2SAT 97
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
[2025-06-28] MEDS: Magnesium Hydrox/Alum Hydrox 30 ML ORAL.SUSP PO ×2 (01:04→08:28)
[2025-06-28] MEDS: Naloxone HCl Nasal TAKE HOME 4 MG SPRAY 8 MG NOSTRILALT (08:23)
[2025-06-28] MEDS: buPROPion HCl XL 300 MG TAB.ER.24H PO (08:24)
[2025-06-28] MEDS: Lidocaine 4 % Patch ADH..PATCH 1 PATCH TRANSDERMA (08:24)
[2025-06-28] MEDS: guanFACINE HCl ER 1 MG TAB.ER.24H PO (08:24)
--- OUTSIDE RECORDS SUMMARY | 2025-07-13 03:45 | XMS_ITS ---
Author Organization [facility] Address [address] [place] [id number] Care Team Providers Care Laundry Housekeeping Aide Name Role Phone Milo Joshi Primary Care Provider REASON FOR VISIT Moise Inpt 07/04-07/11/26 Social History Sex Assigned At : Social History Observation Description Sex Assigned At Male Encounters Encounter Location Date Provider Diagnosis [address] [id number] 07/13/2025 Milo Joshi Plan Of Treatment Next Appt Details Provider Name:Melanie Monge, 07/20/2025 09:00:00 AM, [address] [place] [address], [phone], Provider Name:Chela moseley, 07/23/2025 11:00:00 AM, [address] [place] [address], [phone], Progress Notes * CHELSEA ReyDOB:[birth year] (40 yo M)Acc No.[id number]:07/13/2025 Patient: Rey THORNTON :1985 A ge:40 Y S ex:Male Address:[address] [place] [address], [phone] * * Date:
--- OUTSIDE RECORDS SUMMARY | 2025-07-15 21:30 | XMS_ITS | Encounter Summary ---
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 Name Role Phone Milo Joshi MD Primary Care Provider [phone] Reason for Visit * Reason Comments Leg Pain * Auth/Cert (Routine) Specialty Diagnoses / Procedures Referred By Contac t Referred To Contact Diagnoses NANCY (generalized anxiety disorder) Referral ID Status Reason Start Date Expiration Date Visits Re quested Visits Authorized [id number] 1 1 Encounter Details Date Type Department Care Team (Latest Contact Info) Description 07/15/2025 9:30 PM EST - 07/16/2025 12:50 PM EST Hospital Encounter [facility] [address] [place] [address] Bayron Quijano MD [address] [place] [id number] [email or web address] Candido Lucio DO [address] [place] [address] Milo Padilla MD [address] [place] [id number] [email or web address] Discharge Disposition: Home or Self Care Social History Tobacco Use Types Packs/Day Years Used Date Smoking Tobacco: Every Day Cigarettes 1.5 5 Started: 07/04/2020 Passive Smoke Exposure: Past Smokeless Tobacco: Never Alcohol Use Standard Drinks/Week Comments Yes 210 (1 standard drink = 0.6 oz p ure alcohol) Education Answer Date Recorded Are you interested in more education? Not on fantasma e 01/01/2023 Are you concerned about learning? Not on file 01/01/2023 No 01/01/2023 No 01/01/2023 Food Answer Date Recorded Within the past 6 months we worried whether our food would run out before we got money to buy more. Sometimes True 025 Within the past 6 months the food we bought just didn't last and we didn't have enough money to get more. Sometimes True 05/2025 Residential Stability Answer Date Recor ded What is your housing situation today? I do not have housing (staying in a hotel, in a correction, living outside on the street, on a beach, in a car, or in a park) 07/15/2025 How many times have you move d in the past 12 months? I choose not to answer 07/15/2025 Paying for Meds Answer Date Recorded Do you have trouble paying for medicines? I emma se not to answer 07/15/2025 Paying Utility Bills Answer Date Record ed Do you have trouble paying y our heating or electricity bill? I choose not to answer 07/15/2025 Transportation Answer Date Recorded Has the lack of transportati on kept you from medical appointments or from getting medications? Yes 07/15/2025 Digital Access Answer Date Recorded No 07/15/2025 No 07/15/2025 Do you have reliable internet access at home? I choose not to answer 07/15/2025 Do you have a device (e.g., phone, tablet, computer) with a working camera? I choose not to answer 07/15/2025 Intimate Partner Violence Answer Date R ecorded Are you denied basic needs s uch as food, clothing, or medical care? No 07/15/2025 In the past 12 months have y ou been in a relationship with a person who hurts, threatens, or tries to control you? No 07/15/2025 Are you denied basic needs s uch as food, clothing, or medical care? No 07/15/2025 In the past 12 months have y ou been in a relationship with a person who hurts, threatens, or tries to control you? No 07/15/2025 Sex and Gender Information Value Date Recorded Sex Assigned at Male 07/18/2024 3:47 AM EST Legal Sex Male 9:16 PM EDT Gender Identity Male 07/18/2024 3:47 AM EST Sexual Orientation Straight 07/18/2024 3: 47 AM EST documented as of this encounter Last Filed Vital Signs Vital Sign Reading Time Taken Comments Blood Pressure 143/69 07/16/2025 12:39 PM EST Pulse 79 07/16/2025 12:39 PM EST Temperature 37.3 C (99.1 F) 07/16/2025 12:39 PM EST Respiratory Rate 20 07/16/2025 12:39 PM EST Oxygen Saturation 98% 07/16/2025 12:39 PM EST Inhaled Oxygen Concentration - - Weight - - Height - - Body Mass Index - - documented in this encounter Functional Status * Calculated C-SSRS Risk Score (Lifetime/Recent) Answer Date of Assessment Author Low Risk 07/15/2025 9:45 PM Kojo Payne RN * Tangent Suicide Severity Rating Scale (Screener/Recent Self-Report) Question Answer Date of Assessment Author 1. Wish to be (Past 1 Month) Yes 025 9:45 PM Kojo Payne RN 2. Non-Specific Active Suici sally Thoughts (Past 1 Month) No 07/15/2025 9:45 PM Fan Payne RN 6. Suicidal Behavior (Lifetime) No 9:45 PM Kojo Payne RN documented as of this encounter Discharge Summaries * Namrata Ríos PA-C - 07/16/2025 12:44 PM EST Emergency Department Observation Disposition Note Arrival Date: 07/15/2025 Chief Complaint Patient presents with Leg Pain Observation course: Rey Abad is a 40 y.o. male, h/o anxiety and depression, here with anxiety ED Course: Patient presented with primary psychiatric complaints. Medical screen was notable for positive UDS,also cellulitis left ankle. The patient was medically cleared for CHIEF UNDERWRITER evaluation. The patient was evaluated by CHIEF UNDERWRITER who recommended inpatient psychiatric hospitalization. The patient was placed in ED psychiatric observation status for continued monitoring and reassessments while awaiting placement. Patient was requesting to leave today as he has a place to stay. Reviewed with Alex from CHIEF UNDERWRITER whostates he is voluntary and okay to be discharged. Prescription for cefadroxil was sent to his pharmacy for his left lower extremity cellulitis. Recommend he follow-up with his outpatient providers. Test results: No orders to display Results for orders placed or performed during the hospital encounter of 07/15/25 CBC and Differential Specimen: Blood Result Value Ref Range WBC 7.10 4.00 - 11.00 K/uL RBC 3.79 (L) 4.50 - 5.90 M/uL Hemoglobin 11.8 (L) 13.5 - 17.5 g/dL Hematocrit 34.2 (L) 41.0 - 53.0 % MCV 90.2 80.0 - 100.0 fL MCH 31.1 (H) 27.0 - 31.0 pg MCHC 34.5 32.0 - 36.0 g/dL MPV 9.4 8.4 - 12.0 fL RDW-CV 12.7 11.5 - 14.5 % PLT 288 150 - 450 K/uL Neutrophils 59.7 % Lymphocytes 26.2 % Monocytes 12.5 % Eosinophils 1.4 % Basophils 0.1 % Imm Grans 0.1 % NRBC 0.0 <=0.0 /100 WBCs Absolute Neutrophils 4.23 1.92 - 7.60 K/uL Absolute Lymphocytes 1.86 0.72 - 4.10 K/uL Absolute Monocytes 0.89 0.16 - 1.10 K/uL Absolute Eosinophils 0.10 0.00 - 0.50 K/uL Absolute Basophils 0.01 0.00 - 0.15 K/uL Absolute Imm Grans 0.01 0.00 - 0.09 K/uL Absolute NRBC 0.00 <=0.00 K cells/uL Absolute Neutrophils 4.23 1.92 - 7.60 K/uL Diff Type Auto Ethanol, Blood Specimen: Blood Result Value Ref Range Ethanol <10 Negative; <11 mg/dL Toxicology Screen, Urine Specimen: Urine, Voided Result Value Ref Range Amphetamines, Urine Negative Negative Benzodiazepine, Urine Negative Negative Cocaine Metabolite, Urine Positive (*) Negative Opiates, Urine Negative Negative Oxycodone, Urine Negative Negative Fentanyl, Urine Positive (*) Negative Creatinine, Urine 104 20 - 300 mg/dL Magnesium Specimen: Blood Result Value Ref Range Magnesium 1.9 1.7 - 2.6 mg/dL Hepatic Panel (LFTs) Specimen: Blood Result Value Ref Range AST 42 (H) <40 U/L ALT 53 (H) <50 U/L Alkaline Phosphatase 92 40 - 130 U/L Bilirubin, Total 0.6 0.0 - 1.2 mg/dL Bilirubin, Direct 0.2 0.0 - 0.3 mg/dL Total Protein 7.1 6.4 - 8.3 g/dL Albumin 3.7 3.5 - 5.2 g/dL Globulin 3.4 1.9 - 4.1 g/dL Basic Metabolic Panel (BMP) Specimen: Blood Result Value Ref Range Sodium 135 (L) 136 - 145 mmol/L Potassium 3.9 3.4 - 5.1 mmol/L Chloride 100 98 - 107 mmol/L CO2 25 20 - 31 mmol/L Anion Gap 10 3 - 17 mmol/L BUN 11 6 - 23 mg/dL Creatinine 0.50 (L) 0.60 - 1.30 mg/dL eGFR 131 >59 mL/min/1.73m2 Glucose 120 (H) 70 - 99 mg/dL Calcium 8.9 8.5 - 10.5 mg/dL Brief discharge exam: BP (!) 143/69 Pulse 79 Temp 37.3 ??C (99.1 ??F) (Oral) Resp 20 SpO2 98% Constitutional: Afebrile, nontoxic in appearance, in NAD. Cardiovascular: Regular rate. Hands and feet warm and well-perfused. Respiratory: Speaking in full sentences, no respiratory distress. MS: Moving all extremities. Neuro: Patient alert and oriented. Non-focal. Skin: Warm, dry. Psych: Denies SI/HI/AH/VH. Cooperative. Vital signs reviewed. Nurses notes reviewed. Diagnosis: Clinical Impression Diagnosis Description Comment Final diagnoses Cellulitis of left leg Cellulitis of left leg -- Tick bite of left lower leg, initial encounter Tick bite of left lower leg, initial encounter -- Anxiety Anxiety -- NANCY (generalized anxiety disorder) NANCY (generalized anxiety disorder) -- Final Disposition: Discharged Disposition plan: Discharged to follow-up with outpatient providers. Communication with outpatient providers: per CHIEF UNDERWRITER Discharge management: 30 minutes or less spent on discharge management on the observation dischargeday. Namrata Ríos PA-C Cosigned by Milo Padilla MD at 07/16/2025 1:34 PM EST Associated attestation - Milo Padilla MD - 07/16/2025 1:34 PM EST I confirm that I have reviewed and agree with the plan from the [facility]. documented in this encounter Discharge Instructions * Discharge Instructions* Namrata Ríos PA-C - 07/16/2025 12:40 PM EST -Be sure to take the full course of the antibiotic cefadroxil as instructed. -Take tylenol as needed for pain. -Elevate area above the level of your heart 3 or 4 times a day, for 30 minutes each time. -Keep the infected area clean and dry, you can take a shower or bath, but be sure to pat the area dry with a towel afterward. -It is IMPORTANT THAT YOU follow up with your primary care doctor 48 HOURS. Return sooner if you notice spreading redness, fever, chills, increased pain, nausea, or vomiting. Call CHIEF UNDERWRITER at the number listed below for any acute mental health needs. Return for any new or concerning symptoms. documented in this encounter Medications at Time of Discharge ARIPiprazole (ABILIFY) 5 MG tablet Take 5 mg by mouth daily. Patient unsure of doseage atomoxetine (STRATTERA) 40 MG capsule Take 40 mg by mouth daily. buPROPion (WELLBUTRIN XL) 300 MG ER 24 hr tablet Take 300 mg by mouth daily. chlorproMAZINE (THORAZINE) 10 MG tablet Take 1 tablet (10 mg total) by mouth 3 (three) times a day as needed (agitation). 60 tablet 02/08/2025 gabapentin (NEURONTIN) 300 MG capsule Take 1 capsule (300 mg total) by mouth 3 (three) times a day. 90 capsule 02/08/2025 guanFACINE (INTUNIV) 1 mg Tb24 Take 1 mg by mouth daily. hydrOXYzine (ATARAX) 50 MG tablet Take 1 tablet (50 mg total) by mouth 3 (three) times a day as needed for anxiety (insomnia). 60 tablet 02/08/2025 lanolin-mineral oil (EUCERIN ORIGINAL) Lotn Apply topically as needed (face). 59 mL 02/08/2025 lidocaine 4 % Place 1 patch onto the skin daily. 30 patch 02/09/2025 mirtazapine (REMERON) 30 MG tablet Take 1 tablet (30 mg total) by mouth nightly at bedtime. 7 tablet 1 07/11/2025 nicotine (NICODERM CQ) 21 mg/[address] 1 patch onto the skin daily. 28 patch 02/09/2025 nicotine polacrilex (NICORETTE) [address] 1 each (4 mg total) inside cheek every hour as needed for smoking cessation. 190 each 02/08/2025 omeprazole (PRILOSEC) 20 MG tablet Take 2 tablets (40 mg total) by mouth daily. 60 tablet 02/08/2025 ondansetron (ZOFRAN-ODT) 4 MG disintegrating tablet Take 1 tablet (4 mg total) by mouth every 8 (eight) hours as needed for nausea. 30 tablet 02/08/2025 prazosin (MINIPRESS) 2 MG capsule Take 1 capsule (2 mg total) by mouth nightly at bedtime. 30 capsule 02/08/2025 traZODone (DESYREL) 50 MG tablet Take 50 mg by mouth nightly at bedtime. cefadroxil (DURICEF) 500 MG capsule Take 1 capsule (500 mg total) by mouth 2 (two) times a day for 7 days. 14 capsule 07/16/2025 5 documented as of this encounter Consult Notes Only the most recent of 2 notes is shown. * Alex Telles - 07/16/2025 12:[address] reports he no longer desires [facility]. He reports he has found a room and wishes to secure it. Ct denies SI, HI, and AVH. Consulted with Princess Page, YANY, and JACKELIN Strange. Ct cleared for discharge. CHIEF UNDERWRITER will follow up with ct for next three days. documented in this encounter ED Notes * Milo Padilla MD - 07/16/2025 8:08 AM EST Emergency Department Observation Initial Note Arrival Date: 07/15/2025 Chief Complaint Patient presents with Leg Pain History of Present Illness: Rey Abad is a 40 y.o. male, h/o anxiety and depression, here with anxiety ED Course: Patient presented with primary psychiatric complaints. Medical screen was notable for positive UDS,also cellulitis left ankle. The patient was medically cleared for CHIEF UNDERWRITER evaluation. The patient was evaluated by CHIEF UNDERWRITER who recommended inpatient psychiatric hospitalization. The patient was placed in ED psychiatric observation status for continued monitoring and reassessments while awaiting placement. Relevant past medical history: Past Medical History: Diagnosis Date Bipolar disorder Generalized anxiety disorder Major depressive disorder, single episode PTSD (post-traumatic stress disorder) Social history: Social History Socioeconomic History Marital status: Life Partner Spouse name: Not on file Number of children: Not on file Years of education: Not on file Highest education level: Not on file Occupational History Not on file Tobacco Use Smoking status: Every Day Current packs/day: 1.50 Average packs/day: 1.5 packs/day for 5.0 years (7.5 ttl pk-yrs) Types: Cigarettes Start date: 07/04/2020 Passive exposure: Past Smokeless tobacco: Never Vaping Use Vaping status: never used Substance and Sexual Activity Alcohol use: Yes Alcohol/week: 210.0 standard drinks of alcohol Types: 210 Shots of liquor per week Drug use: Yes Types: Heroin, IV Sexual activity: Not on file Other Topics Concern Not on file Social History Narrative Not on file Family history: No family history on file. Physical Exam: Constitutional: Afebrile, nontoxic in appearance, in NAD. Cardiovascular: Regular rate. Hands and feet warm and well-perfused. Respiratory: Speaking in full sentences, no respiratory distress. MS: Moving all extremities. Neuro: Grossly non-focal. Vision is grossly intact to both eyes, EOM grossly intact, PERRL. Hearingis grossly intact to both ears. No olfactory deficits are noted. No obvious facial sensory deficitsare noted. Motor function of the face is equal and symmetric. Shoulder shrug is intact. Tongue is in the midline. Skin: Warm, dry. Erythema of skin of left ankle. Psych: Cooperative. Vital signs reviewed. Nurses notes reviewed. Observation Medical Decision Making and Plan: Continue bed search per CHIEF UNDERWRITER recommendations Ongoing mental health evaluation and treatment pending disposition as determined by CHIEF UNDERWRITER Routine psych consult at 24 hours, appreciate recommendations Continue home meds Disposition endpoints: If CHIEF UNDERWRITER finds an inpatient bed, then the patient will be admitted or transferred to the appropriate facility. CHIEF UNDERWRITER to reassess need for inpatient psychiatric placement. Section 12: No Milo Padilla MD * Vivi Coker RN - 07/16/2025 2:03 AM EST ED Nursing Progress Note CHIEF UNDERWRITER updated on consult. * Vivi Coker RN - 07/16/2025 12:15 AM EST ED Nursing Progress Note Pt N/V. Pt states I think it was the antibiotic. Provider notified. PO Zofran ordered and given. * Kojo Boateng RN - 07/15/2025 9:30 PM EST [facility]. Pt called with c/o tick bite on foot and cyst on knee. VSS. Pt appears in NAD. * Bayron Quijano MD - 07/15/2025 9:27 PM EST Chief Complaint Chief Complaint Patient presents with Leg Pain History of Present Illness The patient, Rey Abad,is a 40 y.o. male who presents for evaluation of Leg Pain The patient reports that he had multiple ticks on his left leg, he states he removed about 8 this morning, thinks that they may have been on for 6 hours or so. He has noted some redness and discomfort to the left leg. He states he has a Bishop's cyst behind his right knee that has been more swollen recently. He states that he is having difficulty controlling his anxiety, his girlfriend thinks he needs to go back into an inpatient psychiatric hospital for treatment. He states he called [place] and was told that he had to come through the ED to get clearance. No fevers noted, no nausea orvomiting. Unless otherwise specified, I have reviewed and agree with the triage and nursing notes. ROS A ten point review of systems was negative except what was noted in the HPI. Review of Systems Past Medical History Past Medical History: Diagnosis Date Bipolar disorder Generalized anxiety disorder Major depressive disorder, single episode PTSD (post-traumatic stress disorder) Past Surgical History Past Surgical History: Procedure Laterality Date BACK SURGERY Facial reconstrction Home Medications Prior to Admission medications Medication Sig ARIPiprazole (ABILIFY) 5 MG tablet 5 mg, Daily atomoxetine (STRATTERA) 40 MG capsule 40 mg, Daily buPROPion (WELLBUTRIN XL) 300 MG ER 24 hr tablet 300 mg, Daily chlorproMAZINE (THORAZINE) 10 MG tablet 10 mg, Oral, 3 times daily PRN gabapentin (NEURONTIN) 300 MG capsule 300 mg, Oral, 3 times daily Patient taking differently: Take 600 mg by mouth 3 (three) times a day. 600mg TID prescribed by Dr Michael Vidales on 06/27/25 guanFACINE (INTUNIV) 1 mg Tb24 1 mg, Daily hydrOXYzine (ATARAX) 50 MG tablet 50 mg, Oral, 3 times daily PRN lanolin-mineral oil (EUCERIN ORIGINAL) Lotn Topical, As needed lidocaine 4 % 1 patch, Transdermal, Every 24 hours mirtazapine (REMERON) 30 MG tablet 30 mg, Oral, Nightly nicotine (NICODERM CQ) 21 mg/24 hr 1 patch, Transdermal, Daily nicotine polacrilex (NICORETTE) 4 MG gum 4 mg, Buccal, Every 1 hour PRN omeprazole (PRILOSEC) 20 MG tablet 40 mg, Oral, Daily ondansetron (ZOFRAN-ODT) 4 MG disintegrating tablet 4 mg, Oral, Every 8 hours PRN prazosin (MINIPRESS) 2 MG capsule 2 mg, Oral, Nightly Patient not taking: Reported on 07/04/2025 traZODone (DESYREL) 50 MG tablet 50 mg, Nightly Allergies Allergies Allergen Reactions Amoxicillin Anaphylaxis Social and Family History Social History Tobacco Use Smoking status: Every Day Current packs/day: 1.50 Average packs/day: 1.5 packs/day for 5.0 years (7.5 ttl pk-yrs) Types: Cigarettes Start date: 07/04/2020 Passive exposure: Past Smokeless tobacco: Never Substance Use Topics Alcohol use: Yes Alcohol/week: 210.0 standard drinks of alcohol Types: 210 Shots of liquor per week Social History Substance and Sexual Activity Drug Use Yes Types: Heroin, IV No family history on file. Physical Exam Vital Signs: ED Triage Vitals [07/15/252143] Encounter Vitals Group BP (!) 157/76 Girls Systolic BP Percentile Girls Diastolic BP Percentile Boys Systolic BP Percentile Boys Diastolic BP Percentile Heart Rate 94 Respiratory Rate 20 Temperature 37.4 ??C (99.3 ??F) Temp Source Oral SpO2 100 % Weight Height Head Circumference Peak Flow Pain Score Pain Loc Pain Education Exclude from Growth Chart Physical Exam Vitals and nursing note reviewed. Constitutional: General: He is not in acute distress. Appearance: He is well-developed. He is not toxic-appearing. HENT: Head: Normocephalic and atraumatic. Mouth/Throat: Mouth: Mucous membranes are moist. Pharynx: Oropharynx is clear. Eyes: Conjunctiva/sclera: Conjunctivae normal. Pupils: Pupils are equal, round, and reactive to light. Cardiovascular: Rate and Rhythm: Normal rate and regular rhythm. Heart sounds: Normal heart sounds. Pulmonary: Effort: Pulmonary effort is normal. No respiratory distress. Breath sounds: Normal breath sounds. Abdominal: Palpations: Abdomen is soft. Tenderness: There is no abdominal tenderness. Musculoskeletal: General: Normal range of motion. Cervical back: Normal range of motion and neck supple. Skin: General: Skin is warm and dry. Comments: He has some erythema around the left lower leg, moderately tender to touch. Some bruisingin toes of L foot. No [place] suggestive of embedded ticks, no erythema migrans - type lesions. Neurological: Mental Status: He is alert and oriented to person, place, and time. Comments: Neurologic Screening Exam: Grossly non-focal. Vision is grossly intact to both eyes, EOM grossly intact, PERRL. Hearing is grossly intact to both ears. No olfactory deficits are noted. No obvious facial sensory deficits are noted. Motor function of the face is equal and symmetric. Shoulder shrug is intact. Tongue is in the midline. Psychiatric: Mood and Affect: Mood is anxious. Thought Content: Thought content does not include suicidal ideation. Laboratory Testing Results for orders placed or performed during the hospital encounter of 07/15/25 CBC and Differential Specimen: Blood Result Value Ref Range WBC 7.10 4.00 - 11.00 K/uL RBC 3.79 (L) 4.50 - 5.90 M/uL Hemoglobin 11.8 (L) 13.5 - 17.5 g/dL Hematocrit 34.2 (L) 41.0 - 53.0 % MCV 90.2 80.0 - 100.0 fL MCH 31.1 (H) 27.0 - 31.0 pg MCHC 34.5 32.0 - 36.0 g/dL MPV 9.4 8.4 - 12.0 fL RDW-CV 12.7 11.5 - 14.5 % PLT 288 150 - 450 K/uL Neutrophils 59.7 % Lymphocytes 26.2 % Monocytes 12.5 % Eosinophils 1.4 % Basophils 0.1 % Imm Grans 0.1 % NRBC 0.0 <=0.0 /100 WBCs Absolute Neutrophils 4.23 1.92 - 7.60 K/uL Absolute Lymphocytes 1.86 0.72 - 4.10 K/uL Absolute Monocytes 0.89 0.16 - 1.10 K/uL Absolute Eosinophils 0.10 0.00 - 0.50 K/uL Absolute Basophils 0.01 0.00 - 0.15 K/uL Absolute Imm Grans 0.01 0.00 - 0.09 K/uL Absolute NRBC 0.00 <=0.00 K cells/uL Absolute Neutrophils 4.23 1.92 - 7.60 K/uL Diff Type Auto Ethanol, Blood Specimen: Blood Result Value Ref Range Ethanol <10 Negative; <11 mg/dL Toxicology Screen, Urine Specimen: Urine, Voided Result Value Ref Range Amphetamines, Urine Negative Negative Benzodiazepine, Urine Negative Negative Cocaine Metabolite, Urine Positive (*) Negative Opiates, Urine Negative Negative Oxycodone, Urine Negative Negative Fentanyl, Urine Positive (*) Negative Creatinine, Urine 104 20 - 300 mg/dL Magnesium Specimen: Blood Result Value Ref Range Magnesium 1.9 1.7 - 2.6 mg/dL Hepatic Panel (LFTs) Specimen: Blood Result Value Ref Range AST 42 (H) <40 U/L ALT 53 (H) <50 U/L Alkaline Phosphatase 92 40 - 130 U/L Bilirubin, Total 0.6 0.0 - 1.2 mg/dL Bilirubin, Direct 0.2 0.0 - 0.3 mg/dL Total Protein 7.1 6.4 - 8.3 g/dL Albumin 3.7 3.5 - 5.2 g/dL Globulin 3.4 1.9 - 4.1 g/dL Basic Metabolic Panel (BMP) Specimen: Blood Result Value Ref Range Sodium 135 (L) 136 - 145 mmol/L Potassium 3.9 3.4 - 5.1 mmol/L Chloride 100 98 - 107 mmol/L CO2 25 20 - 31 mmol/L Anion Gap 10 3 - 17 mmol/L BUN 11 6 - 23 mg/dL Creatinine 0.50 (L) 0.60 - 1.30 mg/dL eGFR 131 >59 mL/min/1.73m2 Glucose 120 (H) 70 - 99 mg/dL Calcium 8.9 8.5 - 10.5 mg/dL Radiology Testing No orders to display ED Medication from 07/15/20252126 to 07/16/2025124 Date/Time Order Dose Route Action Action by Comments 07/15/2025 2332 EST doxycycline hyclate (VIBRAMYCIN) capsule 200 mg 200 mg Oral Given Vivi Coker RN -- 07/16/2025 0014 EST ondansetron (ZOFRAN-ODT) disintegrating tablet 4 mg 4 mg Oral Given Vivi Coker RN -- [facility] The patient was given a dose of doxycycline for tick bite prophylaxis. He appears to have an area of potential cellulitis on the left lower leg, he has an amoxicillin allergy, but thinks he has tolerated cephalosporins in the past, we will try him on a dose of cephalosporin to see if he can tolerate this and if so continue this for short course. I will request CHIEF UNDERWRITER consultation to evaluate him forinpatient psychiatric hospitalization. Clinical Impressions as of 07/16/25124 Cellulitis of left leg Tick bite of left lower leg, initial encounter Anxiety Clinical Impression Diagnosis Description Comment Final diagnoses Cellulitis of left leg Cellulitis of left leg -- Tick bite of left lower leg, initial encounter Tick bite of left lower leg, initial encounter -- Anxiety Anxiety -- Disposition: Pending at shift change. Bayron Quijano MD 07/16/25124 documented in this encounter Plan of Treatment Not on file documented as of this encounter Procedures Procedure Name Priority Date/Time Associated Diagnosis Comments ETHANOL, BLOOD STAT 07/16/2025 12:08 AM EST CBC AND DIFFERENTIAL STAT 07/16/2025 12:08 AM EST LFTS (HEPATIC PANEL) STAT 07/16/2025 12:08 AM EST CBC AND DIFFERENTIAL STAT 07/16/2025 12:08 AM EST MAGNESIUM STAT 07/16/2025 12:08 AM EST BASIC METABOLIC PANEL (BMP) STAT 07/16/2025 12:08 AM EST TOXICOLOGY SCREEN, URINE STAT 07/15/2025 11:34 PM EST documented in this encounter Results * (ABNORMAL) CBC and Differential (07/16/2025 12:08 AM EST) WBC 7.10 4.00 - 11.00 K/uL 07/16/2025 12:17 AM [facility] RBC 3.79(L) 4.50 - 5.90 M/uL 07/16/2025 12:17 AM [facility] Hemoglobin 11.8(L) 13.5 - 17.5 g/dL 07/16/2025 12:17 AM [facility] Hematocrit 34.2(L) 41.0 - 53.0 % 07/16/2025 12:17 AM [facility] MCV 90.2 80.0 - 100.0 fL 07/16/2025 12:17 AM [facility] MCH 31.1(H) 27.0 - 31.0 pg 07/16/2025 12:17 AM [facility] MCHC 34.5 32.0 - 36.0 g/dL 07/16/2025 12:17 AM [facility] MPV 9.4 8.4 - 12.0 fL 07/16/2025 12:17 AM [facility] RDW-CV 12.7 11.5 - 14.5 % 07/16/2025 12:17 AM [facility] PLT 288 150 - 450 K/uL 07/16/2025 12:17 AM [facility] Neutrophils 59.7 % 07/16/2025 12:17 AM [facility] Lymphocytes 26.2 % 07/16/2025 12:17 AM [facility] Monocytes 12.5 % 07/16/2025 12:17 AM [facility] Eosinophils 1.4 % 07/16/2025 12:17 AM [facility] Basophils 0.1 % 07/16/2025 12:17 AM [facility] Imm Grans 0.1 % 07/16/2025 12:17 AM [facility] NRBC 0.0 <=0.0 /100 WBCs 07/16/2025 12:17 AM [facility] Absolute Neutrophils 4.23 1.92 - 7.60 K/uL 07/16/2025 12:17 AM [facility] Absolute Lymphocytes 1.86 0.72 - 4.10 K/uL 07/16/2025 12:17 AM [facility] Absolute Monocytes 0.89 0.16 - 1.10 K/uL 07/16/2025 12:17 AM [facility] Absolute Eosinophils 0.10 0.00 - 0.50 K/uL 07/16/2025 12:17 AM [facility] Absolute Basophils 0.01 0.00 - 0.15 K/uL 07/16/2025 12:17 AM [facility] Absolute Imm Grans 0.01 0.00 - 0.09 K/uL 07/16/2025 12:17 AM [facility] Absolute NRBC 0.00 <=0.00 K cells/uL 07/16/2025 12:17 AM [facility] Absolute Neutrophils 4.23 1.92 - 7.60 K/uL 07/16/2025 12:17 AM EST [facility] Comment:Automated cell count . Manual ANC may differ if performed. Diff Type Auto 07/16/2025 12:17 AM EST [facility] Blood (Blood) 07/16/2025 12: 08 AM EST 07/16/2025 12:14 AM EST us Bayron Quijano MD LAB BLOOD BKR ORDERABLES Final Result [address] [id number] * Ethanol, Blood (07/16/2025 12:08 AM EST) Ethanol <10 Negative; <11 mg/dL 07/16/2025 12:42 AM EST [facility] Blood (Blood) 07/16/2025 12: 08 AM EST 07/16/2025 12:14 AM EST us Bayron Quijano MD LAB BLOOD BKR ORDERABLES Final Result Performing Organization Address [facility] [[email or web address]] Co de Phone Number [address] [address] * Magnesium (07/16/2025 12:08 AM EST) Magnesium 1.9 1.7 - 2.6 mg/dL 07/16/2025 12:42 AM EST [facility] Blood (Blood) 07/16/2025 12: 08 AM EST 07/16/2025 12:14 AM EST us Bayron Quijano MD LAB BLOOD BKR ORDERABLES Final Result Performing Organization Address [facility] [[email or web address]] Co de Phone Number [address] [phone] * (ABNORMAL) Hepatic Panel (LFTs) (07/16/2025 12:08 AM EST) AST 42(H) <40 U/L 07/16/2025 12:42 AM [facility] ALT 53(H) <50 U/L 07/16/2025 12:42 AM [facility] Alkaline Phosphatase 92 40 - 130 U/L 07/16/2025 12:42 AM [facility] Bilirubin, Total 0.6 0.0 - 1.2 mg/dL 07/16/2025 12:42 AM [facility] Bilirubin, Direct 0.2 0.0 - 0.3 mg/dL 07/16/2025 12:42 AM [facility] Total Protein 7.1 6.4 - 8.3 g/dL 07/16/2025 12:42 AM [facility] Albumin 3.7 3.5 - 5.2 g/dL 07/16/2025 12:42 AM [facility] Globulin 3.4 1.9 - 4.1 g/dL 07/16/2025 12:42 AM [facility] Blood (Blood) 07/16/2025 12: 08 AM EST 07/16/2025 12:14 AM EST us Bayron Quijano MD LAB BLOOD BKR ORDERABLES Final Result Performing Organization Address City/State/[facility] [[email or web address]] Co de Phone Number [address] [phone] * (ABNORMAL) Basic Metabolic Panel (BMP) (07/16/2025 12:08 AM EST) Sodium 135(L) 136 - 145 mmol/L 07/16/2025 12:42 AM [facility] Potassium 3.9 3.4 - 5.1 mmol/L 07/16/2025 12:42 AM [facility] Chloride 100 98 - 107 mmol/L 07/16/2025 12:42 AM [facility] CO2 25 20 - 31 mmol/L 07/16/2025 12:42 AM [facility] Anion Gap 10 3 - 17 mmol/L 07/16/2025 12:42 AM [facility] BUN 11 6 - 23 mg/dL 07/16/2025 12:42 AM [facility] Creatinine 0.50(L) 0.60 - 1.30 mg/dL 07/16/2025 12:42 AM [facility] eGFR 131 >59 mL/min/1.7 3m2 07/16/2025 12:42 AM [facility] Comment:Estimated glomerular filtration rate calculated using the CKD-EPI refit equation. Glucose 120(H) 70 - 99 mg/dL 07/16/2025 12:42 AM [facility] Calcium 8.9 8.5 - 10.5 mg/dL 07/16/2025 12:42 AM [facility] Blood (Blood) 07/16/2025 12: 08 AM EST 07/16/2025 12:14 AM EST us Bayron Quijano MD LAB BLOOD BKR ORDERABLES Final Result Performing Organization Address City/State/[facility] [[email or web address]] Co de Phone Number [address] [address] * (ABNORMAL) Toxicology Screen, Urine (07/15/2025 11:34 PM EST) [facility] Amphetamines, Urine Negative Negative 07/16/2025 1:16 AM [facility] Benzodiazepine, Urine Negative Negative 07/16/2025 1:16 AM [facility] Cocaine Metabolite, Urine Positive(A) Negative 07/16/2025 1:16 AM [facility] Opiates, Urine Negative Negative 07/16/2025 1:16 AM [facility] Oxycodone, Urine Negative Negative 07/16/20 1:16 AM [facility] Fentanyl, Urine Positive(A) Negative 07/16/20 1:16 AM [facility] Comment:An unexplained posit perla fentanyl test could be due to risperidone, haloperidol, pipamperone, trazadone or labetalol. Confirmatory testing by mass spectrometry can be requested if a definitive result is needed. Creatinine, Urine 104 20 - 300 mg/dL 07/16/2025 1:16 AM [facility] Urine (Urine, Voided) Non-Blood Collection / Unknown 07/15/2025 11:34 PM EST 07/16/2025 12:16 AM EST Narrative [facility] - 07/16/2025 1:16 AM EST This screening test was performed by immunoassay methodology, which may occasionally yield false-negative or false-positive results. Confirmatory testing can be requested if a definitive result is needed. Results are to be used only for medical (ie, treatment) purposes. Unconfirmed screening results must not be used for non-medical purposes (eg, employment testing). us Bayron Quijano MD LAB URINE ORDERABLES [facility] al Result [facility] [address] [place] [address] documented in this encounter Visit Diagnoses Diagnosis NANCY (generalized anxiety disorder)- Primary Generalized anxiety disorder Cellulitis of left leg Tick bite of left lower leg, initial encounter Anxiety Anxiety state, unspecified NANCY (generalized anxiety disorder) Generalized anxiety disorder documented in this encounter Admitting Diagnoses Diagnosis NANCY (generalized anxiety disorder) Generalized anxiety disorder documented in this encounter Administered Medications Inactive Administered Medications - up to 3 most recent administrations Medication Order MAR Action Action Date Dose Rate Site ARIPiprazole (ABILIFY) tablet 10 mg 10 mg, Oral, Daily, First dose (after last modification) on Wed07/16/25 at 0900 Given 07/16/2025 8:06 AM EST 10 mg atomoxetine (STRATTERA) capsule 40 mg 40 mg, Oral, Daily, First dose on Wed07/16/25 at 0900, Swallow capsules whole; do NOT open capsules. Given 07/16/2025 8:06 AM EST 40 mg buPROPion (WELLBUTRIN XL) ER 24 hr tablet 150 mg 150 mg, Oral, Daily, First dose on Wed07/16/25 at 1200, DO NOT cut, crush, or chew tablets due to increased risk of seizures. Given 07/16/2025 11:11 AM EST 150 mg buPROPion (WELLBUTRIN XL) ER 24 hr tablet 300 mg 300 mg, Oral, Daily, First dose on Wed07/16/25 at 0900, DO NOT cut, crush, or chew tablets due to increased risk of seizures. Given 07/16/2025 8:06 AM EST 300 mg cefadroxil (DURICEF) capsule 500 mg 500 mg, Oral, Every 12 hours, First dose on Wed07/16/25 at 0145, For 7 days, Indication: Infection WITHOUT sepsis, Infection Source: Skin & Soft Tissue Infection Given 07/16/2025 1:59 AM EST 500 mg doxycycline hyclate (VIBRAMYCIN) capsule 200 mg 200 mg, Oral, Once, On 07/15/25 at 2315, For 1 dose, Administer at least 1-2 hours before multivalent cation-containing products (e.g. aluminum, calcium, magnesium)., Indication: Prophylaxis, at risk for:, Infection Source: Other, Specify Other Infection Source: tickborne illness Given 07/15/2025 11:32 PM EST 200 mg gabapentin (NEURONTIN) capsule 300 mg 300 mg, Oral, 3 times daily, First dose on Wed07/16/25 at 0900 Given 07/16/2025 8:06 AM EST 300 mg nicotine (NICODERM CQ) 21 mg/24 hr 1 patch 1 patch, Transdermal, Administer over 24 Hours, Daily, First dose on Wed07/16/25 at 0900 Patch Applied 07/16/2025 8:06 AM EST 1 patch Left Arm ondansetron (ZOFRAN-ODT) disintegrating tablet 4 mg 4 mg, Oral, Once, On Wed07/16/25 at 0015, For 1 dose, Do not remove from blister until needed. Peel backing off the blister, do not push tablet through. Using dry hands, place tablet on tongue and allow to dissolve. Swallow with saliva. Given 07/16/2025 12:14 AM EST 4 mg traZODone (DESYREL) tablet 100 mg 100 mg, Oral, Nightly, First dose (after last modification) on Wed07/16/25 at 2100 documented in this encounter Active and Recently Administered Medications Times are shown in EST. Scheduled Medication Order 07/14/2025 07/15/2025 07/16/2025 ARIPiprazole (ABILIFY) tablet 10 mg 10 mg, Oral, Daily, First dose (after last modification) on Wed07/16/25 at 0900 0806 (Given - Provid er: Asiya Heck RN) atomoxetine (STRATTERA) capsule 40 mg 40 mg, Oral, Daily, First dose on Wed07/16/25 at 0900, Swallow capsules whole; do NOT open capsules. 0806 (Given - Provid er: Asiya Heck RN) buPROPion (WELLBUTRIN XL) ER 24 hr tablet 150 mg 150 mg, Oral, Daily, First dose on Wed07/16/25 at 1200, DO NOT cut, crush, or chew tablets due to increased risk of seizures. 1111 (Given - Provid er: Asiya Heck RN) buPROPion (WELLBUTRIN XL) ER 24 hr tablet 300 mg 300 mg, Oral, Daily, First dose on Wed07/16/25 at 0900, DO NOT cut, crush, or chew tablets due to increased risk of seizures. 0806 (Given - Provid er: Asiya Heck RN) cefadroxil (DURICEF) capsule 500 mg 500 mg, Oral, Every 12 hours, First dose on Wed07/16/25 at 0145, For 7 days, Indication: Infection WITHOUT sepsis, Infection Source: Skin & Soft Tissue Infection 0159 (Given - Provid er: Vivi Coker RN) doxycycline hyclate (VIBRAMYCIN) capsule 200 mg (COMPLETED) 200 mg, Oral, Once, On Wed07/15/25 at 2315, For 1 dose, Administer at least 1-2 hours before multivalent cation-containing products (e.g. aluminum, calcium, magnesium)., Indication: Prophylaxis, at risk for:, Infection Source: Other, Specify Other Infection Source: tickborne illness 2332 (Given - Provider: Vivi Coker RN) gabapentin (NEURONTIN) capsule 300 mg 300 mg, Oral, 3 times daily, First dose on Wed07/16/25 at 0900 0806 (Given - Provid er: Asiya Heck RN) mirtazapine (REMERON) tablet 30 mg 30 mg, Oral, Nightly, First dose on Wed07/16/25 at 2100 nicotine (NICODERM CQ) 21 mg/24 hr 1 patch 1 patch, Transdermal, Administer over 24 Hours, Daily, First dose on Wed07/16/25 at 0900 0806 (Patch Applied - Provider: Asiya Heck RN)1250 (Due: Patch Removed - Provider: Automatic Discharge Provider - Comment: Time automatically adjusted from order being discontinued) ondansetron (ZOFRAN-ODT) disintegrating tablet 4 mg (COMPLETED) 4 mg, Oral, Once, On Wed07/16/25 at 0015, For 1 dose, Do not remove from blister until needed. Peel backing off the blister, do not push tablet through. Using dry hands, place tablet on tongue and allow to dissolve. Swallow with saliva. 0014 (Given - Provid er: Vivi Coker RN) prazosin (MINIPRESS) capsule 2 mg 2 mg, Oral, Nightly, First dose on Wed07/16/25 at 2100 traZODone (DESYREL) tablet 100 mg 100 mg, Oral, Nightly, First dose (after last modification) on Wed07/16/25 at 2100 PRN Medication Order 07/14/2025 07/15/2025 07/16/2025 chlorproMAZINE (THORAZINE) tablet 10 mg 10 mg, Oral, 3 times daily PRN, agitation, Starting on Wed07/16/25 at 0533 hydrOXYzine (ATARAX) tablet 50 mg 50 mg, Oral, 3 times daily PRN, anxiety, insomnia, Starting on Wed07/16/25 at 0532 nicotine polacrilex (NICORETTE) gum 4 mg 4 mg, Buccal, Every 1 hour PRN, smoking cessation, Starting on Wed07/16/25 at 0533, Not to exceed 24 pieces/24 hours ondansetron (ZOFRAN-ODT) disintegrating tablet 4 mg 4 mg, Oral, Every 8 hours PRN, nausea, Starting on Wed07/16/25 at 0533, Do not remove from blister until needed. Peel backing off the blister, do not push tablet through. Using dry hands, place tablet on tongue and allow to dissolve. Swallow with saliva. documented in this encounter Care Teams [employer] Relationship Specialty Start Date End Date Milo Joshi MD [address] [place] [address] PCP - General Internal Medicine 07/04/25 documented as of this encounter Additional Source Comments The information contained in this document represents components of the legal health record. It is not the complete legal health record.[email or web address]
--- OUTSIDE RECORDS SUMMARY | 2025-07-18 14:26 | XMS_ITS ---
Author Organization [facility] Address [address] [place] [phone] Care Team Providers Care Local Telephone Operator Name Role Phone Milo Joshi Primary Care Provider REASON FOR VISIT [facility] 07/15-07/16/25 Social History Sex Assigned At : Social History Observation Description Sex Assigned At Male Encounters Encounter Location Date Provider Diagnosis [address] [id number] 07/18/2025 Milo Joshi Plan Of Treatment Next Appt Details Provider Name:Melanie Monge, 07/20/2025 09:00:00 AM, [address] [place] [address], [phone], Provider Name:Chela moseley, 07/23/2025 11:00:00 AM, [address] [place] [address], [phone], Progress Notes * CHELSEA WillianoliDOB:[birth year] (40 yo M)Acc No.[id number]:07/18/2025 Patient: Rey THORNTON :1985 A ge:40 Y S ex:Male Address:[address] [place] [address], [phone] * * Date:
--- OUTSIDE RECORDS SUMMARY | 2025-07-19 08:40 | XMS_ITS | Clinical Summary ---
Author Organization [employer] Address [address] [place] [address] Care Team Providers Care Station Agent Name Role Phone Unavailable Primary Care Provider [...] 3-dose series) 01/29/2003 COVID-19 Vaccine (1 - 2024-2 6 season) 2025 Influenza Vaccine (#1) 2025 Zoster [...] patient's age to complete this topic [id number]
--- OUTSIDE RECORDS SUMMARY | 2025-07-19 08:41 | XMS_ITS | Clinical Summary ---
Author Organization [facility] Address [address] [place] [address] Phone Care Team Providers [employer] Engineer Name Role Phone Milo Joshi MD Primary Care Provider [phone] Allergies Active Allergy Reactions Criticality Noted Date Comments Amoxicillin Anaphylaxis High 07/18/2024 Medications * This document contains information received from the source organization and may not represent a complete record from that organization. chlorproMAZINE (THORAZINE) 10 MG tablet Take 1 tablet (10 mg total) by mouth 3 (three) times a day as needed (agitation). 60 tablet 02/09/20 25 Active gabapentin (NEURONTIN) 300 MG capsule Take 1 capsule (300 mg total) by mouth 3 (three) times a day. 90 capsule 02/09/20 25 Active Additional Information Patient taking differently:300 mg Oral 3 times daily,600mg TID prescribed by Dr Michael Vidales on 06/27/25, Reported on 07/16/2025 hydrOXYzine (ATARAX) 50 MG tablet Take 1 tablet (50 mg total) by mouth 3 (three) times a day as needed for anxiety (insomnia). 60 tablet 02/09/20 25 Active omeprazole (PRILOSEC) 20 MG tablet Take 2 tablets (40 mg total) by mouth daily. 60 tablet 02/09/20 25 Active ondansetron (ZOFRAN-ODT) 4 MG disintegrating tablet Take 1 tablet (4 mg total) by mouth every 8 (eight) hours as needed for nausea. 30 tablet 02/09/20 25 Active prazosin (MINIPRESS) 2 MG capsule Take 1 capsule (2 mg total) by mouth nightly at bedtime. 30 capsule 02/09/20 25 Active lanolin-mineral oil (EUCERIN ORIGINAL) Lotn Apply topically as needed (face). 59 mL 02/09/20 25 Active nicotine polacrilex (NICORETTE) [address] 1 each (4 mg total) inside cheek every hour as needed for smoking cessation. 190 each 02/09/20 25 Active nicotine (NICODERM CQ) 21 mg/[address] 1 patch onto the skin daily. 28 patch 02/10/20 25 Active lidocaine 4 % Place 1 patch onto the skin daily. 30 patch 02/10/20 25 Active ARIPiprazole (ABILIFY) 5 MG tablet Take 5 mg by mouth daily. Patient unsure of doseage Active traZODone (DESYREL) 50 MG tablet Take 50 mg by mouth nightly at bedtime. Active atomoxetine (STRATTERA) 40 MG capsule Take 40 mg by mouth daily. Active buPROPion (WELLBUTRIN XL) 300 MG ER 24 hr tablet Take 300 mg by mouth daily. Active guanFACINE (INTUNIV) 1 mg Tb24 Take 1 mg by mouth daily. Active mirtazapine (REMERON) 30 MG tablet Take 1 tablet (30 mg total) by mouth nightly at bedtime. 7 tablet 1 07/11/20 Active cefadroxil (DURICEF) 500 MG capsule Take 1 capsule (500 mg total) by mouth 2 (two) times a day for 7 days. 14 capsule 07/16/20 25 025 Active lurasidone (LATUDA) 60 mg tablet Take 1 tablet (60 mg total) by mouth daily with dinner. 30 tablet 02/09/20 25 025 Discontin ued(Stop Taking at Discharge ) mirtazapine (REMERON) 7.5 MG tablet Take 1 tablet (7.5 mg total) by mouth nightly at bedtime. 30 tablet 02/09/20 25 025 Discontin ued(Stop Taking at Discharge ) methadone (DOLOPHINE) 10 MG tablet Take 4 tablets (40 mg total) by mouth daily. 02/10/20 25 025 Discontin ued(Stop Taking at Discharge ) Active Problems Problem Noted Date Diagnosed Date NANCY (generalized anxiety disorder) 07/16/2025 Suicidal ideation 07/04/2025 Bipolar affective disorder 07/04/2025 Alcohol use disorder 02/01/2025 Grief reaction 02/01/2025 Depression 01/06/2025 Depression, unspecified depression type 01/07/20 Bipolar disorder 09/22/2024 Opioid use disorder 09/22/2024 Cocaine use disorder 09/22/2024 Severe recurrent major depre ssion without psychotic features 09/21/2024 Resolved Problems Problem Noted Date Diagnosed Date Resolved Date Suicidal ideation 09/21/2024 02/08/2025 Encounters * This document contains information received from the source organization and may not represent a complete record from that organization. Date Type Department Care Team Description 07/15/2025 9:30 PM EST - 07/16/2025 12:50 PM EST Hospital Encounter [facility] [address] [place] [address] Bayron Quijano MD Savage, Justin G, DO Griffith, Andrew Thomas Liao, MD Discharge Disposition: Home or Self Care from Last 3 Months Social History Tobacco Use Types Packs/Day Years Used Date Smoking Tobacco: Every Day Cigarettes 1.5 5 Started: 07/04/2020 Passive Smoke Exposure: Past Smokeless Tobacco: Never Tobacco Cessation:Ready to Q uit: Not Asked; Counseling Given: Yes Alcohol Use Standard Drinks/Week Comments Yes 210 [...] housing (staying in a hotel, in a assisted, living outside on the street, on a beach, in a car, or in a park) 07/15/2025 How many times have you move d in the past 12 months? I choose not to answer 07/15/2025 Paying for Meds Answer Date Recorded Do you have trouble paying for medicines? I emma moon not to answer 07/15/2025 Paying Utility Bills [...] Orientation Straight 07/18/2024 3: 47 AM EST Last Filed Vital Signs Vital Sign Reading Time Taken Comments Blood Pressure 143/69 07/16/2025 12:39 PM EST Pulse 79 07/16/2025 12:39 PM EST Temperature 37.3 C (99.1 F) 07/16/2025 12:39 PM EST Respiratory Rate 20 07/16/2025 12:3 9 PM EST Oxygen Saturation 98% 07/16/2025 12: 39 PM EST Inhaled Oxygen Concentration - - Weight 101.7 kg (224 lb 1.6 oz) 07/04/2025 5:09 PM EDT Height 182.9 cm (6') 07/04/2025 5:09 PM EDT Body Mass Index 30.39 07/04/2025 5:09 PM EDT Plan of Treatment Health Maintenance Due Date Last Done Comments Adult Td,Tdap Booster 1984 DEPRESSION SCREENING 1996 HEPATITIS C SCREENING 01/29/2002 HIV ONE-TIME SCREENING (18-6 5 YEARS) 01/29/2002 PNEUMOCOCCAL VACCINES (0-49 years) (1 of 2 - PCV) 01/29/2003 INFLUENZA VACCINE (#1) 2025 COVID-19 VACCINE (1 - 2024-2 6 season) 2025 SMOKING Hx and SMOKELESS TOBACCO SCREENING 07/04/2026 07/04/2025 SCREENING FOR DIABETES 07/16/2028 , 02/06/2025 LIPID PANEL 02/06/2030 02/06/2025, 09/23/2024 HEPATITIS A VACCINES Aged Out No long er eligible based on patient's age to complete this topic HIB VACCINES Aged Out No longer eligi ble based on patient's age to complete this topic IPV VACCINES Aged Out No longer eligi ble based on patient's age to complete this topic MENINGOCOCCAL VACCINES (ACWY) Aged Out No longer eligible based on patient's age to complete this topic MENINGOCOCCAL VACCINES (B) Aged Out N o longer eligible based on patient's age to complete this topic Medical Devices Not on file Procedures Procedure Name Priority Date/Time Associated Diagnosis Comments CBC AND DIFFERENTIAL STAT 07/16/2025 12:08 AM EST ETHANOL, BLOOD STAT 07/16/2025 12:08 AM EST MAGNESIUM STAT 07/16/2025 12:08 AM EST LFTS (HEPATIC PANEL) STAT 07/16/2025 12:08 AM EST BASIC METABOLIC PANEL (BMP) STAT 07/16/2025 12:08 AM EST CBC AND DIFFERENTIAL STAT 07/16/2025 12:08 AM EST TOXICOLOGY SCREEN, URINE STAT 07/15/2025 11:34 PM EST XR KNEE 4 OR MORE VIEWS (RIGHT) Routine 07/06/2025 11:47 AM EDT ETHANOL, BLOOD STAT 07/04/2025 12:01 PM EDT LFTS (HEPATIC PANEL) STAT 07/04/2025 12:01 PM EDT BASIC METABOLIC PANEL (BMP) STAT 07/04/2025 12:01 PM EDT CBC AND DIFFERENTIAL STAT 07/04/2025 12:01 PM EDT XR CHEST 1 VIEW Routine 07/04/2025 11:50 AM EDT LIPID PANEL Routine 02/06/2025 6:56 AM EDT from Last 3 Months or Most Recently Relevant to Health Maintenance Results * Ethanol, Blood (07/16/2025 12:08 AM EST) Only the most recent of2 resultswithin the time period is included. Pathologist [facility] Ethanol <10 Negative; <11 mg/dL 07/16/2025 12:42 AM [facility] Blood (Blood) 07/16/2025 12: 08 AM EST 07/16/2025 12:14 AM EST us Bayron Quijano MD LAB BLOOD BKR ORDERABLES Final Result Performing Organization Address City/State/[facility] Co de Phone Number [address] [address] * (ABNORMAL) CBC and Differential (07/16/2025 12:08 AM EST) Pathologist [facility] WBC 7.10 4.00 - 11.00 K/uL 07/16/2025 12:17 AM [facility] RBC 3.79(L) 4.50 - 5.90 M/uL 07/16/2025 12:17 AM [facility] Hemoglobin 11.8(L) 13.5 - 17.5 g/dL 07/16/2025 12:17 AM [facility] Hematocrit 34.2(L) 41.0 - 53.0 % 07/16/2025 12:17 AM [facility] MCV 90.2 80.0 - 100.0 fL 07/16/2025 12:17 AM [facility] MCH 31.1(H) 27.0 - 31.0 pg 07/16/2025 12:17 AM [facility] MCHC 34.5 32.0 - 36.0 g/dL 07/16/2025 12:17 AM [facility] MPV 9.4 8.4 - 12.0 fL 07/16/2025 12:17 AM [facility] RDW-CV 12.7 11.5 - 14.5 % 07/16/2025 12:17 AM [facility] PLT 288 150 - 450 K/uL 07/16/2025 12:17 AM [facility] Neutrophils 59.7 % 07/16/2025 12:17 AM [facility] Lymphocytes 26.2 % 07/16/2025 12:17 AM [facility] Monocytes 12.5 % 07/16/2025 12:17 AM [facility] Eosinophils 1.4 % 07/16/2025 12:17 AM [facility] Basophils 0.1 % 07/16/2025 12:17 AM [facility] Imm Grans 0.1 % 07/16/2025 12:17 AM [facility] NRBC 0.0 <=0.0 /100 WBCs 07/16/2025 12:17 AM [facility] Absolute Neutrophils 4.23 1.92 - 7.60 K/uL 07/16/2025 12:17 AM [facility] Absolute Lymphocytes 1.86 0.72 - 4.10 K/uL 07/16/2025 12:17 AM [facility] Absolute Monocytes 0.89 0.16 - 1.10 K/uL 07/16/2025 12:17 AM [facility] Absolute Eosinophils 0.10 0.00 - 0.50 K/uL 07/16/2025 12:17 AM [facility] Absolute Basophils 0.01 0.00 - 0.15 K/uL 07/16/2025 12:17 AM [facility] Absolute Imm Grans 0.01 0.00 - 0.09 K/uL 07/16/2025 12:17 AM [facility] Absolute NRBC 0.00 <=0.00 K cells/uL 07/16/2025 12:17 AM [facility] Absolute Neutrophils 4.23 1.92 - 7.60 K/uL 07/16/2025 12:17 AM [facility] Comment:Automated cell count . Manual ANC may differ if performed. Diff Type Auto 07/16/2025 12:17 AM [facility] Blood (Blood) 07/16/2025 12: 08 AM EST 07/16/2025 12:14 AM EST us Bayron Quijano MD LAB BLOOD BKR ORDERABLES Final Result [address] [address] * (ABNORMAL) Hepatic Panel (LFTs) (07/16/2025 12:08 AM EST) Only the most recent of2 resultswithin the time period is included. AST 42(H) <40 U/L 07/16/2025 12:42 AM [facility] ALT 53(H) <50 U/L 07/16/2025 12:42 AM [facility] Alkaline Phosphatase 92 40 - 130 U/L 07/16/2025 12:42 AM [facility] Bilirubin, Total 0.6 0.0 - 1.2 mg/dL 07/16/2025 12:42 AM [facility] Bilirubin, Direct 0.2 0.0 - 0.3 mg/dL 07/16/2025 12:42 AM [facility] Total Protein 7.1 6.4 - 8.3 g/dL 07/16/2025 12:42 AM [facility] Albumin 3.7 3.5 - 5.2 g/dL 07/16/2025 12:42 AM [facility] Globulin 3.4 1.9 - 4.1 g/dL 07/16/2025 12:42 AM [facility] Blood (Blood) 07/16/2025 12: 08 AM EST 07/16/2025 12:14 AM EST us Bayron Quijano MD LAB BLOOD BKR ORDERABLES Final Result [address] [address] * Magnesium (07/16/2025 12:08 AM EST) Magnesium 1.9 1.7 - 2.6 mg/dL 07/16/2025 12:42 AM [facility] Blood (Blood) 07/16/2025 12: 08 AM EST 07/16/2025 12:14 AM EST us Bayron Quijano MD LAB BLOOD BKR ORDERABLES Final Result Performing Organization Address [facility] Co de Phone Number [address] [address] * (ABNORMAL) Basic Metabolic Panel (BMP) (07/16/2025 12:08 AM EST) Only the most recent of2 resultswithin the time period is included. Sodium 135(L) 136 - 145 mmol/L 07/16/2025 12:42 AM [facility] Potassium 3.9 3.4 - 5.1 mmol/L 07/16/2025 12:42 AM [facility] Chloride 100 98 - 107 mmol/L 07/16/2025 12:42 AM [facility] CO2 25 20 - 31 mmol/L 07/16/2025 12:42 AM [facility] Anion Gap 10 3 - 17 mmol/L 07/16/2025 12:42 AM [facility] BUN 11 6 - 23 mg/dL 07/16/2025 12:42 AM [facility] Creatinine 0.50(L) 0.60 - 1.30 mg/dL 07/16/2025 12:42 AM [facility] eGFR 131 >59 mL/min/1.7 3m2 07/16/2025 12:42 AM [facility] Comment:Estimated glomerular filtration rate calculated using the CKD-EPI refit equation. Glucose 120(H) 70 - 99 mg/dL 07/16/2025 12:42 AM [facility] Calcium 8.9 8.5 - 10.5 mg/dL 07/16/2025 12:42 AM [facility] Blood (Blood) 07/16/2025 12: 08 AM EST 07/16/2025 12:14 AM EST Bayron Quijano MD LAB BLOOD BKR ORDERABLES Final Result [facility] [address] [place] [address] * (ABNORMAL) Toxicology Screen, Urine (07/15/2025 11:34 PM EST) [facility] Amphetamines, Urine Negative Negative 07/16/2025 1:16 AM [facility] Benzodiazepine, Urine Negative Negative 07/16/2025 1:16 AM [facility] Cocaine Metabolite, Urine Positive(A) Negative 07/16/2025 1:16 AM [facility] Opiates, Urine Negative Negative 07/16/2025 1:16 AM [facility] Oxycodone, Urine Negative Negative 07/16/20 1:16 AM [facility] Fentanyl, Urine Positive(A) Negative 07/16/20 1:16 AM [facility] Comment:An unexplained posit eprla fentanyl test could be due to risperidone, haloperidol, pipamperone, trazadone or labetalol. Confirmatory testing by mass spectrometry can be requested if a definitive result is needed. Creatinine, Urine 104 20 - 300 mg/dL 07/16/2025 1:16 AM [facility] Urine (Urine, Voided) Non-Blood Collection / Unknown 07/15/2025 11:34 PM EST 07/16/2025 12:16 AM EST [facility] - 07/16/2025 1:16 AM EST This screening test was performed by immunoassay methodology, which may occasionally yield false-negative or false-positive results. Confirmatory testing can be requested if a definitive result is needed. Results are to be used only for medical (ie, treatment) purposes. Unconfirmed screening results must not be used for non-medical purposes (eg, employment testing). Bayron Quijano MD LAB URINE ORDERABLES Fin al Result [facility] [address] [place] [address] * XR KNEE 4 OR MORE VIEWS (RIGHT) (07/06/2025 11:47 AM EDT) Anatomical Region Laterality Modality Knee Right Computed Radiogr aphy 07/06/2025 11:5 5 AM EDT Impressions 07/06/2025 11:57 AM EDT FINDINGS/IMPRESSION: There is no evidence of acute fracture, subluxation, or dislocation. There is mild medial compartment joint space narrowing. There is patellofemoral compartment joint space narrowing, likely mild to moderate. There is mild tricompartmental marginal osteophytosis. There is a trace joint effusion. Narrative 07/06/2025 11:57 AM EDT XR KNEE 4 OR MORE VIEWS (RIGHT) 07/06/2025 11:42 AM Referring clinician's provided indication for this examination in [facility]: Pain COMPARISON: None Procedure Note Yuridia Alvarado MD - 07/06/2025 XR KNEE 4 OR MORE VIEWS (RIGHT) 07/06/2025 11:42 AM Referring clinician's provided indication for this examination in [facility]:Pain COMPARISON: None IMPRESSION: FINDINGS/IMPRESSION: There is no evidence of acute fracture, subluxation, or dislocation. Thereis mild medial compartment joint space narrowing. There is patellofemoralcompartment joint space narrowing, likely mild to moderate. There is mildtricompartmental marginal osteophytosis. There is a trace jointeffusion. Dima Gutierres PMHNP-BC IMG XR LOWER EXTREMITY Fi nal Result * (ABNORMAL) CBC and differential (07/04/2025 12:01 PM EDT) WBC 10.92 4.00 - 11.00 K/uL [facility] RBC 4.16(L) 4.50 - 5.90 M/uL [facility] HGB 13.0(L) 13.5 - 17.5 g/dL [facility] HCT 38.0(L) 41.0 - 53.0 % [facility] PLT 378 150 - 450 K/uL [facility] MCV 91.3 80.0 - 100.0 fL [facility] MCH 31.3(H) 27.0 - 31.0 pg [facility] MCHC 34.2 32.0 - 36.0 g/dL [facility] RDW 12.8 11.5 - 14.5 % [facility] MPV 8.8 8.4 - 12.0 fL [facility] NRBC 0.00 0.00 /100 WBCs [facility] ABSOLUTE NRBC 0.00 0.00 K/uL [facility] DIFF METHOD Auto [facility] NEUTS 71.1 48.0 - 76.0 % [facility] LYMPHS 20.4 18.0 - 41.0 % [facility] MONOS 6.8 4.0 - 11.0 % [facility] EOS 1.2 0.0 - 5.0 % [facility] BASOS 0.2 0.0 - 1.5 % [facility] Granulocytes, immature (%) 0.3 0.0 - 0.9 % [facility] ABSOLUTE NEUTS 7.77(H) 1.92 - 7.60 K/uL [facility] ABSOLUTE LYMPHS 2.23 0.72 - 4.10 K/uL [facility] ABSOLUTE MONOS 0.74 0.16 - 1.10 K/uL [facility] ABSOLUTE EOS 0.13 0.00 - 0.50 K/uL [facility] ABSOLUTE BASOS 0.02 0.00 - 0.15 K/uL [facility] Granulocytes, immature 0.03 0.00 - 0.09 K/uL [facility] Blood 07/04/2025 12:0 1 PM EDT 07/04/2025 12:05 PM EDT us Mouna Hughes PA-C LAB BLOOD BKR ORDERABLE S Final Result [address] [address] * XR CHEST 1 VIEW (07/04/2025 11:50 AM EDT) Anatomical Region Laterality Modality Chest Computed Radiogr aphy 07/04/2025 12:4 1 PM EDT Impressions 07/04/2025 12:49 PM EDT No acute abnormality. Narrative 07/04/2025 12:49 PM EDT XR CHEST 1 VIEW Referring clinician's provided indication for this examination in [facility]: Pain COMPARISON: XR CHEST PA AND LATERAL 2 VIEWS FINDINGS: Devices/Tubes/Lines: None. Lungs: No focal consolidation or pulmonary edema. Pleura: No pleural effusion or pneumothorax. Heart/Mediastinum: Normal heart and mediastinum. Bones/Soft Tissues: No significant abnormality. Procedure Note Skylar Mcconnell MD - 07/04/2025 XR CHEST 1 VIEW Referring clinician's provided indication for this examination in [facility]:Pain COMPARISON: XR CHEST PA AND LATERAL 2 VIEWS FINDINGS: Devices/Tubes/Lines: None. Lungs: No focal consolidation or pulmonary edema. Pleura: No pleural effusion or pneumothorax. Heart/Mediastinum: Normal heart and mediastinum. Bones/Soft Tissues: No significant abnormality. IMPRESSION: No acute abnormality. us Mouna Hughes PA-C IMG XR CHEST Final R esult * Lipid panel (02/06/2025 6:56 AM EDT) HDL 45 mg/dL [facility] Comment: Interpretation <40 mg/dL: Low HDL cholesterol (major risk factor for CHD) Greater than or equal to 60 mg/dL: High HDL cholesterol ( negative risk factor for CHD) HDL - cholesterol is affected by a number of factors, e.g. smoking, excerise, hormones, sex and age. CHOLESTEROL 158 0 - 240 mg/dL [facility] TRIGLYCERIDES 147 30 - 160 mg/dL [facility] LDL 84 50 - 129 mg/dL [facility] Comment: LDL levels in terms of risk for coronary heart disease: <100 mg/dL: Optimal 100-129 mg/dL: Near or above optimal 130-159 mg/dL: Borderline high 160-189 mg/dL: High >190 mg/dL: Very High CARDIAC RISK RATIO 3.5 3.4 - 5.0 C [facility] Blood 02/06/2025 6:56 AM EDT 02/06/2025 7:16 AM EDT us Milo Bonilla MD LAB BLOOD BKR ORDERABLES F inal Result Performing Organization Address City/State/[facility] [place] [address] from Last 3 Months or Most Recently Relevant to Health Maintenance Insurance [place] [id number] [place] [id number] Advance Directives For more information, please contact: [phone] (9AM - 5PM [facility] Wednesday[facility]) * Full Code (Latest Code Status on File) Date Activated Date Inactivated Comments 07/04/2025 4:06 PM Question Answer Comments Code Status Confirmed With: Patient * Full Code Date Activated Date Inactivated Comments 07/04/2025 3:01 PM 07/04/2025 4:06 PM Question Answer Comments Code Status Confirmed With: Patient * Full Code Date Activated Date Inactivated Comments 02/02/2025 1:48 PM 07/04/2025 3:01 PM Question Answer Comments Code Status Confirmed With: Patient * Full Code Date Activated Date Inactivated Comments 09/21/2024 8:32 PM 02/02/2025 1:48 PM Question Answer Comments Code Status Confirmed With: [employer] Engineer Relationship Specialty Start Date End Date Milo Joshi MD [address] [place] [address] PCP - General Internal Medicine 07/04/25 Additional Source Comments The information contained in this document represents components of the legal health record. It is not the complete legal health record.[facility]
--- OUTSIDE RECORDS SUMMARY | 2025-07-19 08:41 | XMS_ITS | Clinical Summary ---
Author Organization 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 Telerad JACKELIN ([id number]) -------- FINAL REPORT -------- Dictated By: Laly Nelson Dictated Date: 05/30/2025 09:10 ET Assigned Physician: Laly Nelson Reviewed and Electronically Signed By: Laly Nelson Signed Date: 05/30/2025 09:11 ET Workstation ID: [id number] Transcribed By: Self Edit Transcribed Date: 05/30/2025 [...] Impression: Normal right hip series. Telerad PA ([id number]) -------- FINAL REPORT -------- Dictated By: Laly Nelson Dictated Date: 05/30/2025 09:10 ET Assigned Physician: Laly Nelson Reviewed and Electronically Signed By: Laly Nelson Signed Date: 05/30/2025 09:11 ET Workstation ID: [id number] Transcribed By: Self Edit Transcribed Date: 05/30/2025 09:10 ET Jose Sierra MD IMG XR PROCEDURES Final Re sult * XR Chest 2 Views (05/30/2025 2:35 AM EDT) Anatomical Region Laterality Modality Body Radiographic Charlene ging 05/30/2025 9:08 AM EDT Impressions 05/30/2025 9:10 AM EDT Impression: 1. Hyperinflated lungs. 2. Probable pleural scarring at the right base, unchanged from the previous study. Telerad PA ([id number]) -------- FINAL REPORT -------- Dictated By: Laly Nelson Dictated Date: 05/30/2025 09:08 ET Assigned Physician: Laly Nelson Reviewed and Electronically Signed By: Laly Nelson Signed Date: 05/30/2025 09:10 ET Workstation ID: [id number] Transcribed By: Self Edit Transcribed Date: 05/30/2025 [...] base, unchanged from theprevious study. Telerad PA ([id number]) -------- FINAL REPORT -------- Dictated By: Laly Nelson Dictated Date: 05/30/2025 09:08 ET Assigned Physician: Laly Nelson Reviewed and Electronically Signed By: Laly Nelson Signed Date: 05/30/2025 09:10 ET Workstation ID: [id number] Transcribed By: Self Edit Transcribed Date: 05/30/2025 09:08 ET Jose Sierra MD IMG XR PROCEDURES Final Re sult * ECG 12 lead (05/30/2025 2:14 AM EDT) [facility] Ventricular Rate ECG 70 BPM GEMUSE Atrial Rate 70 BPM GEMUSE P-R Interval 148 ms GEMUSE QRS Duration 92 ms GEMUSE Q-T Interval 400 ms GEMUSE QTc 432 ms GEMUSE P Wave [place] 23 degrees GEMUSE R [place] 32 degrees GEMUSE T [place] 49 degrees GEMUSE ECG Interpretation Normal sinus rhythm Normal ECG When compared with ECG of 26-SEP-2023 13:18, No significant change was found Confirmed by JILLIAN SANTOS ([id number]) on 05/31/2025 11:25:48 AM GEMUSE 05/30/2025 2:14 AM EDT 05/31/2025 11:25 AM EDT Jose Sierra MD ECG ORDERABLES Final Resu lt GEMUSE * Troponin I high sensitivity (05/30/2025 2:09 AM EDT) [facility] High Sensitivity Troponin I 8 <=79 ng/L LAB CHEMISTRY METHOD 05/30/2025 2:51 AM EDT [facility] Blood Venous blood specimen / Unknown Venipuncture / Unknown 05/30/2025 2:09 AM EDT 05/30/2025 2:12 AM EDT Narrative [facility] - 05/30/2025 2:51 AM EDT High levels of biotin in samples may falsely decrease hsTroponin values. Use caution when interpreting hsTroponin results in patients taking biotin who exhibit renal impairment (eGFR <60) or in patients taking more than 20 mg/day of biotin. us Jose Sierra MD LAB BLOOD ORDERABLES Final Result [facility] [address] [place] [address], * (ABNORMAL) CBC auto differential (05/30/2025 2:09 AM EDT) WBC 6.7 4.8 - 10.8 K/mcL LAB HEMETOLOGY METHOD 05/30/2025 2:50 AM EDT [facility] RBC 3.70(L) 4.50 - 5.50 M/mcL LAB HEMETOLOGY METHOD 05/30/2025 2:50 AM EDT [facility] Hemoglobin 11.4(L) 13.5 - 17.5 g/dL LAB HEMETOLOGY METHOD 05/30/2025 2:50 AM EDT [facility] Hematocrit 33.5(L) 42.0 - 54.0 % LAB HEMETOLOGY METHOD 05/30/2025 2:50 AM EDT [facility] MCV 89.8 79.0 - 98.0 FL LAB HEMETOLOGY METHOD 05/30/2025 2:50 AM EDT [facility] MCH 30.6 27.0 - 32.0 pcg LAB HEMETOLOGY METHOD 05/30/2025 2:50 AM [facility] MCHC 34.0 32.0 - 37.0 g/dL LAB HEMETOLOGY METHOD 05/30/2025 2:50 AM [facility] RDW 13.1 11.0 - 15.0 % LAB HEMETOLOGY METHOD 05/30/2025 2:50 AM [facility] Platelets 381 130 - 400 K/mcL LAB HEMETOLOGY METHOD 05/30/2025 2:50 AM [facility] MPV 9.7 7.0 - 11.0 FL LAB HEMETOLOGY METHOD 05/30/2025 2:50 AM [facility] NRBC 0.0 <1.0 % LAB HEMETOLOGY METHOD 05/30/2025 2:50 AM [facility] NRBC Absolute 0.00 <0.10 K/mcL LAB HEMETOLOGY METHOD 05/30/2025 2:50 AM [facility] Neutrophils Relative 66.2 % LAB HEMETOLOGY METHOD 05/30/2025 2:50 AM [facility] Lymphocytes Relative 24.9 % LAB HEMETOLOGY METHOD 05/30/2025 2:50 AM [facility] Monocytes Relative 7.1 % LAB HEMETOLOGY METHOD 05/30/2025 2:50 AM [facility] Eosinophils Relative 1.3 % LAB HEMETOLOGY METHOD 05/30/2025 2:50 AM [facility] Basophils Relative 0.4 % LAB HEMETOLOGY METHOD 05/30/2025 2:50 AM [facility] Immature Granulocytes Relative 0.1 % LAB HEMETOLOGY METHOD 05/30/2025 2:50 AM [facility] Neutrophils Absolute 4.45 1.50 - 7.00 K/mcL LAB HEMETOLOGY METHOD 05/30/2025 2:50 AM EDT [facility] Lymphocytes Absolute 1.68 1.00 - 5.00 K/mcL LAB HEMETOLOGY METHOD 05/30/2025 2:50 AM EDT [facility] Monocytes Absolute 0.48 0.20 - 1.00 K/mcL LAB HEMETOLOGY METHOD 05/30/2025 2:50 AM EDT [facility] Eosinophils Absolute 0.09 0.00 - 0.50 K/mcL LAB HEMETOLOGY METHOD 05/30/2025 2:50 AM EDT [facility] Basophils Absolute 0.03 0.00 - 0.20 K/mcL LAB HEMETOLOGY METHOD 05/30/2025 2:50 AM EDT [facility] Immature Granulocytes Absolute 0.01 0.00 - 0.03 K/mcL LAB HEMETOLOGY METHOD 05/30/2025 2:50 AM EDT [facility] Blood Venous blood specimen / Unknown Venipuncture / Unknown 05/30/2025 2:09 AM EDT 05/30/2025 2:12 AM EDT Jose Sierra MD LAB BLOOD ORDERABLES Final Result [facility] [address] [place] [address], * (ABNORMAL) Basic metabolic panel (05/30/2025 2:09 AM EDT) Sodium 136 133 - 145 mmol/L LAB CHEMISTRY METHOD 05/30/2025 2:48 AM EDT [facility] Potassium 3.7 3.5 - 5.5 mmol/L LAB CHEMISTRY METHOD 05/30/2025 2:48 AM T [facility] Chloride 104 96 - 110 mmol/L LAB CHEMISTRY METHOD 05/30/2025 2:48 AM EDT [facility] CO2 26 21 - 32 mmol/L LAB CHEMISTRY METHOD 05/30/2025 2:48 AM T [facility] Anion Gap 6 3 - 11 LAB CHEMISTRY METHOD 05/30/2025 2:48 AM [facility] Glucose 106(H) 70 - 100 mg/dL LAB CHEMISTRY METHOD 05/30/2025 2:48 AM [facility] BUN 7 5 - 25 mg/dL LAB CHEMISTRY METHOD 05/30/2025 2:48 AM [facility] Creatinine 0.80 0.70 - 1.30 mg/dL LAB CHEMISTRY METHOD 05/30/2025 2:48 AM [facility] eGFR 114 >=60 mL/min/1. 73m2 LAB CHEMISTRY METHOD 05/30/2025 2:48 AM [facility] Comment:Calculation based on the Chronic Kidney Disease Epidemiology Collaboration (CKD-EPI) equation refit without adjustment for race. BUN/Creatinine Ratio 8.8 LAB CHEMISTRY METHOD 05/30/2025 2:48 AM [facility] Calcium 9.2 8.5 - 10.5 mg/dL LAB CHEMISTRY METHOD 05/30/2025 2:48 AM [facility] Blood Venous blood specimen / Unknown Venipuncture / Unknown 05/30/2025 2:09 AM EDT 05/30/2025 2:12 AM EDT Jose Sierra MD LAB BLOOD ORDERABLES Final Result [facility] [address] [place] [address], * ECG-Annotated (05/30/2025) us Provider Onbase ECG ORDERABLES Final Result from Last 3 Months Insurance MEDICAID - [place] Care Teams Heating And Blending Supervisor Relationship Specialty Start Date End Date Physician, No Pcp PCP - General 05/30/25
--- OUTSIDE RECORDS SUMMARY | 2025-07-19 08:42 | XMS_ITS | Patient Health Record ---
Author Organization [facility] Address [address] [place] [address] Care Team Providers Care Radioactivity Technician Name Role Phone Milo Joshi Primary Care Provider Melanie Monge Unavailable [phone] [facility], Nursing Unavailable [phone] Chela Torres Unavailable [phone] [facility], CHW Unavailable [phone] Casionan, Eddieliza Unavailable [phone] Migration, Provider Unavailable Unavailable Allergies Allergen (clinical [...] 10:11:31 PM Interpretation:Negative Performing Lab: Notes/Report: Negative HEMOGLOBIN A1C Reviewed date:07/13/2025 08:48:36 AM Interpretation:Normal Performing Lab: Notes/Report: Normal Hemoglobin A1C 4.8 LIPID PANEL Reviewed date:07/13/2025 08:49:28 AM Interpretation:Normal Performing Lab: Notes/Report: Normal TRIGLYCERIDES 147 CHOLESTEROL, TOTAL 158 HDL CHOLESTEROL 45 LDL-CHOLESTEROL 84 CR Shoulder RT Min 2 View Reviewed date:02/20/2025 05:54:25 PM Interpretation:Abnormal Performing Lab: Notes/Report: Abnormal CBC (H/H, RBC, INDICES, WBC, PLT) Reviewed date:07/04/2025 10:09:51 AM Interpretation:Hgb 13.5 Performing Lab: Notes/Report: Hgb 13.5 WHITE BLOOD CELL COUNT 9.2 HEMOGLOBIN 13.5 HEMATOCRIT 38 MCV 90 PLATELET COUNT 328 COMPREHENSIVE METABOLIC PANE L-Quest Reviewed date:07/04/2025 10:11:27 AM Interpretation:AST/ALT/bili Performing Lab: Notes/Report: AST/ALT/bili GLUCOSE 103 UREA NITROGEN (BUN) 16 CREATININE 0.85 SODIUM 136 POTASSIUM 4.1 CHLORIDE 104 CARBON DIOXIDE 23 CALCIUM 9.0 PROTEIN, TOTAL 8.0 ALBUMIN 4.4 BILIRUBIN, TOTAL 1.1 ALKALINE PHOSPHATASE 102 AST 48 ALT 67 Reason For Referral Reason Spine [facility] d Sport 7[facility] patient with right lumbar radiuculitis who is s/p two spinal surgeries 10 years ago. Did reasonably well with epidurals and wants to avoid surgery Diagnosis 1 Radiculopathy, lumba r region (M54.16) Referral Organization [facility] Referring Provider First Name Milo Referring Provider Last Name Madelyn Referring Provider Speciality Internal M edicine Referred Organization [facility] Referred Provider Kuldeep Leo and S port Referred Address [address] [place] [address],[place], [place],[id number] Referred Provider Specialty Physical Med icine and Rehabilitation General Notes Cass Kingsley 09/15/2024 02:49:56 PM > Faxed to spine and sport in [facility], [id number] x 12 visits Clinical Notes Referral # [id number] D Referral Priority Routine Medications Medication SIG [...] review and pick correct strength-formulat ion from [employer] options. If intended option is not shown, [...] A IM Intramuscular 07/06/2018 Administered ND 5 [id number] Influenza IM Intramuscular 07/06/2018 Administered ND 49 [id number] Hepatitis B (20 or more) IM Intramuscular 09/22/2019 Administered Influenza IM Intramuscular 10/02/2019 Administered ND 49 [id number] Influenza Unknown 05/29/2016 Administered Td Unknown 11/07/2008 [...] CSP x 3 months re ferral from [facility]gn[facility] Leela Anirudh [phone] CHD Worker CSP x 3 [facility] [phone] CHD Worker CSP x 3 months re ferral from Egnar Leela Anirudh [phone] CHD Worker CSP x 3 months re ferral from Egn[facility] Leela Anirudh [phone] CHD Worker CSP x 3 months re ferral from Egn[facility] Leela Anirudh [phone] CHD Worker CSP x 3 months re ferral from [facility]gn[facility] Leela Anirudh [phone] CHD Worker CSP x 3 months re ferral from Egn[facility] Leela Anirudh [phone] CHD Worker CSP x 3 months re ferral from Egnar Leela Anirudh [phone] CHD Worker CSP x 3 months re ferral from Egn[facility] Leela Anirudh [phone] CHD Worker CSP x 3 months re ferral from [facility] Leela Anirudh [phone] CHD Worker CSP x 3 months [facility] [phone] CHD Worker CSP x 3 months re ferral from Egnar Leela Anirudh [phone] CHD Worker CSP x 3 months re ferral from [facility]gn[facility] Leela Anirudh [phone] CHD Worker CSP x 3 months re ferral from Egn[facility] Leela Anirudh [phone] CHD Worker CSP x 3 months re ferral from Egnar Leela Anirudh [phone] CHD Worker CSP x 3 months re ferral from Egnar Leela Anirudh [phone] CHD Worker CSP x 3 months re ferral from Egnar Leela Anirudh [phone] CHD Worker CSP x 3 months re ferral from Egnar Leela Anirudh [phone] CHD Worker CSP x 3 months re ferral from Egnar Leela Anirudh [phone] CHD Worker CSP x 3 months re ferral from Egnar Leela Anirudh [phone] CHD Worker CSP x 3 months re ferral from Egnar Leela Anirudh [phone] CHD Worker CSP x 3 months re ferral from Egnar Leela Anirudh [phone] CHD Worker CSP x 3 months re ferral from Egnar Leela Anirudh [phone] CHD Worker CSP x 3 months re ferral from Egnar Leela Anirudh [phone] CHD Worker CSP x 3 months re ferral from Egnar Leela Anirudh [phone] CHD Worker CSP x 3 months re ferral from Egnar Leela Anirudh [phone] CHD Worker CSP x 3 months re ferral from Egnar Leela Anirudh [phone] CHD Worker CSP x 3 months re ferral from Egnar Leela Anirudh [phone] CHD Worker CSP x 3 months re ferral from Egnar Leela Anirudh [phone] CHD Worker CSP x 3 months re ferral from Egnar Leela Anirudh [phone] CHD Worker CSP x 3 months re ferral from Egnar Leela Anirudh [phone] CHD Worker CSP x 3 months re ferral from Egnar Leela Anirudh [phone] CHD Worker CSP x 3 months re ferral from Egnar Leela Anirudh [phone] CHD Worker CSP x 3 months re ferral from Egnar Leela Anirudh [phone] CHD Worker CSP x 3 months re ferral from Egnar Leela Anirudh [phone] CHD Worker CSP x 3 months re ferral from Egnar Leela Anirudh [phone] CHD Worker CSP x 3 months re ferral from Egnar Leela Anirudh [phone] CHD Worker CSP x 3 months re ferral from Egnar Leela Anirudh [phone] CHD Worker CSP x 3 months re ferral from Egnar Leela Anirudh [phone] CHD Worker CSP x 3 months re ferral from Egnar Leela Anirudh [phone] CHD Worker CSP x 3 months re ferral from Egnar Leela Anirudh [phone] CHD Worker CSP x 3 months re ferral from Egn[facility] Leela Anirudh [phone] Problems Problem Type SNOMED Code ICD Code Onset Dates Problem Status W/U Status Risk Notes Problem Chronic hepatitis C (733969900) Chronic viral hepatitis C (B18.2) Active confirmed Problem Obesity (336534389) Obesity, unspecified (E66.9) Active confirmed Problem Alcohol abuse (65387919) Alcohol abuse, uncomplicated (F10.10) Active confirmed Problem Opioid abuse (0508476) Opioid abuse, uncomplicated (F11.10) Active confirmed Problem Tobacco user (512406435) Nicotine dependence, cigarettes, uncomplicated (F17.210) Active confirmed Problem Psychoactive substance abuse (18672575) Other psychoactive substance abuse, uncomplicated (F19.10) Active confirmed Problem Bipolar affective disorder, currently depressed, mild (865866612) Bipolar disorder, current episode depressed, mild (F31.31) Active confirmed Problem Bipolar affective disorder, currently depressed, moderate (063024332) Bipolar disorder, current episode depressed, moderate (F31.32) Active confirmed Problem Bipolar disorder (49909689) Bipolar disorder, unspecified (F31.9) Active confirmed Problem Anxiety disorder (838612720) Anxiety disorder, unspecified (F41.9) Active confirmed Problem Posttraumatic stress disorder (67685559) Post-traumatic stress disorder, chronic (F43.12) Active confirmed Problem Insomnia disorder related to another mental disorder (48155288) Insomnia due to other mental disorder (F51.05) Active confirmed Problem Essential hypertension (04198358) Essential (primary) hypertension (I10) Active confirmed Problem Uncomplicated moderate persistent asthma (395282207) Moderate persistent asthma, uncomplicated (J45.40) Active confirmed Problem Gastro-esophageal reflux disease without esophagitis (817761632) Gastro-esophagea l reflux disease without esophagitis (K21.9) Active confirmed Problem Lumbar radiculopathy (146200214) Radiculopathy, lumbar region (M54.16) Active confirmed Problem Nondependent cocaine abuse in remission (632574367) Cocaine abuse, in remission (F14.11) Active confirmed Problem Body mass index 35.00 to 39.99 (787990749887144) Body mass index [BMI] 37.0-37.9, adult (Z68.37) Active confirmed Problem Sheltered homelessness (055781862290407) Sheltered homelessness (Z59.01) Active confirmed Problem 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35) Inactive confirmed Problem Carpal tunnel syndrome (51681030) Carpal tunnel syndrome, bilateral upper limbs (G56.03) Inactive confirmed Vital Signs Temperature 97.1 degrees Fahrenheit 11/16/2024 Blood pressure diastolic 91 10/12/2024 Oximetry 96 09/14/2024 Height 72 in 11/16/2024 Blood pressure systolic 144 10/12/2024 Weight 278 lbs 09/14/2024 BMI 37.7 kg/m2 09/14/2024 Procedures Procedure Date Ordered Date Performed Result Body Sit e EKG 10/12/2024 10/12/2024 Normal Encounters Encounter Location Date Provider Diagnosis [address] [address] 05/19/2025 Provider Migration [facility] [address] [id number] 09/14/2024 Milo Joshi Chronic viral hepatitis C [...] Body mass index [BMI] 37.0-37.9, adult Z68.37 [facility] [address] [id number] 09/21/2024 [facility] Bipolar disorder, unspecified F31.9 [facility] [address] [place] [address] [place] [phone] 10/04/2024 Melanie Monge Bipolar disorder, current episode depressed, moderate F31.32 ; Insomnia due to other mental disorder F51.05 ; Cocaine abuse, in remission F14.11 ; Anxiety disorder, unspecified F41.9 ; Post-traumatic stress disorder, chronic F43.12 and Opioid abuse, uncomplicated F11.[address] [address] 10/12/2024 Milo Joshi Encounter for screening for COVID-19 Z11.52 ; Cervicalgia M54.2 ; Obesity, unspecified E66.9 ; Sheltered homelessness Z59.01 ; Bipolar disorder, current episode depressed, mild F31.31 ; Essential (primary) hypertension I10 ; Concussion with loss of consciousness of unspecified duration, initial encounter S06.0X9A and Other psychoactive substance abuse, uncomplicated F19.10 [facility] [address] [place] [address] [place], [place] [id number] 11/14/2024 Milo Joshi Chest pain, unspecified R07.9 and Disappearance and of family member Z63.4 [facility] [address] [id number] 11/16/2024 Nursing [facility] Encounter for screening, unspecified Z13.9 [facility] [address] [id number] 11/21/2024 W [facility] [address] [place] [address] [place], [place] [id number] 11/24/2024 Edisone Saleem Insomnia due to other mental disorder F51.05 ; Bipolar disorder, current episode depressed, moderate F31.32 ; Cocaine abuse, in remission F14.11 ; Anxiety disorder, unspecified F41.9 ; Post-traumatic stress disorder, chronic F43.12 ; Opioid abuse, uncomplicated F11.10 ; Disappearance and of family member Z63.4 and Encounter for screening for COVID-19 Z11.52 [facility] [address] [place] [address] [place], [place] [phone] 12/21/2024 Melanie Saleem Insomnia due to other mental disorder F51.05 ; Cocaine abuse, in remission F14.11 ; Bipolar disorder, current episode depressed, moderate F31.32 ; Anxiety disorder, unspecified F41.9 ; Post-traumatic stress disorder, chronic F43.12 ; Opioid abuse, uncomplicated F11.10 ; Disappearance and of family member Z63.4 and Encounter for screening for COVID-[address] [address] 07/13/[address]hi [address] [address] 07/18/2025 Milo Joshi [address] [address] 08/15/2024 Milo Joshi [address] [address] 09/14/2024 Milo Joshi [address] [place] [address] 09/14/2024 Milo Joshi [address] [address] 09/14/2024 Milo Joshi [address] [address] 10/02/2024 Melanie Monge [address] [address] 10/05/2024 Milo Joshi Post-traumatic stress disorder, chronic F43.[address] [address] 10/12/2024 Milo Joshi [address] [address] 10/13/2024 Milo Joshi [address] [address] 11/16/2024 Milo Joshi [facility] [address] [place] [id number] 11/16/2024 Milo Joshi [facility] [address] [place] [id number] 11/17/2024 Milo Joshi [address] [address] 11/28/2024 Milo Joshi [address] [address] 12/21/2024 Milo Joshi [address] [address] 01/16/2025 Milo Joshi [address] [address] 02/07/2025 Milo Joshi [facility] [address] [place] [address] 02/20/2025 Milo Joshi [address] [address] 04/06/2025 Milo Joshi [facility] [address] [place] [address] 04/06/2025 Milo Joshi [address] [address] 04/24/2025 Milo Joshi [address] [address] 06/28/2025 Chela Torres [address] [address] 07/04/2025 [address]o Joshi [address] [address] 07/05/2025 Milo Joshi Assessments Encounter Date Diagnosis (ICD [...] Bipolar disorder, unspecified (ICD-10 - F31.9) Called [facility] in [place] due to pt's rceiving daily methadone dose through [facility] they could not guarantee any respite beds. Called [facility] they as well could not guarantee any beds locally but possily in [facility]. Having to report to [place] daily for methadone dosing would be challenging if pt was to be in a respite not in [place] or near [place] PT-1 lease picker for transport. Pt agreeable to go to [facility] ED for psych eval and possible volunteer admission to inpatient psych. Discussed it was guaranteed to get dosed for methadone and to restart psych meds. During visit pt was able to eat breakfast provided by [facility] in RN's office. Transportation provided to pt to assist with getting to [facility] for crisis eval and possible inpatient [...] to proceed with prescribed treatment. 1. Mass HISTOLOGY ASSISTANT reviewed: see Exam 2. Medications: as above, received 1 week of refills from provider in [facility], will cont same doses and send 30 days 3. Cont psychotherapy: has appt 10/05/24 with Nusrat Torres [facility] 4. Labs/Procedures: has new lab [...] Noite for bed rest for next day [facility] will help 10/12/2024 Encounter for screening for [...] Pt had to leave to go to [facility] due to transport arriving. 11/24/2024 Insomnia due [...] to proceed with prescribed treatment. 1. Mass HISTOLOGY ASSISTANT reviewed: see Exam 2. Medications: as above 3. Cont psychotherapy: has appt next week with Nusrat Conteh [facility]. 4. Labs/Procedures: no new labs [...] to proceed with prescribed treatment. 1. Mass HISTOLOGY ASSISTANT reviewed: see Exam 2. Medications: as above 3. Psychotherapy: sent TE to Elodia Torres [facility].\ that clt would like to [...] uncomplicated (ICD-10 - F19.10) [facility] Encounter for screening for COVID-19 (ICD-10 - Z11.52) Covid verbal screening negative. 12/21/2024 Encounter for screening for COVID-19 (ICD-10 - Z11.52) Covid verbal screening negative. 09/14/2024 Moderate persistent asthma, uncomplicated (ICD-10 - J45.40) [facility]-re new Dulera and albuterol 09/14/2024 Sheltered homelessness (ICD-10 - Z59.01) In [facility] here, hopes for room 09/14/2024 Obesity, unspecified [...] vac cameron at pharmacy iunclkuding flu, Tdap, [id number] HEpB and COVID 10/04/2024 Other Time spent [...] Details Provider Name:Melanie Monge, 07/20/2025 09:00:00 AM, [address] [place] [address], [phone], Provider Name:Chela moseley, 07/23/2025 11:00:00 AM, [address] [place] [address], [phone], Insurance Providers Payer Name Payer Address Payer Phone Subscriber Number Group Number Insured Name Patient Relationship to Insured Coverage Start Date Coverage End Date [place] C3 [address] [place], [place] [id number] Rey Abad Self - patient is the insured 4 [place] [employer] [address] [place] [address] [id number] Pollo Rey Self - patient is the insured 6 Medical (General) History Medical History History ICD Code Bipolar Disorder PTSD ADHD Polysub abuse Hep C-DX by [facility] no f/u since Rt sided sciatica Tics Opioid abuse, uncomplicated Body mass index [BMI] 40.0-44.9, adult Z 68.41 Surgical History Surgery Date(Month/Year) Laser surgery on back (L5, S1 ) Hospitalization History Reason Date(Month/Year) Sharlene Vernon 2023 Psych admit, [facility] 01/2024 Psych admit [facility] in [place] [address] ains, [facility] 2022 [facility] pain U/S reveals bake r's Cyst Rt knee F/U DR Fajardo [facility] [phone] 05/22/2020 [facility] ?acalculous cholecystitis- referr ed to [facility] GI HIDA scan 12/21/18 [facility]-dual DX admission 04/2018 numerous detox admissions
== END 2025-06-28 10:58 | disposition home or self-care (01) | DRG 753 ==
LOC: HO.ED 21:13 → HO.PM5 21:53
PROVIDERS: Nurse Practitioner Family; Physician Assistant Medical; Admitting Provider Psychiatry & Neurology Psychiatry; Emergency Provider Emergency Medicine; Visit Provider Psychiatry & Neurology Psychiatry
DX: F31.81 Bipolar II disorder (principal); F10.10 Alcohol abuse, uncomplicated; F14.10 Cocaine abuse, uncomplicated; Y90.2 Blood alcohol level of 40-59 mg/100 ml; Z87.820 Personal history of traumatic brain injury; F43.10 Post-traumatic stress disorder, unspecified; Z63.4 Disappearance and death of family member; F17.210 Nicotine dependence, cigarettes, uncomplicated; Z71.6 Tobacco abuse counseling; Z79.899 Other long term (current) drug therapy
CPT/HCPCS: 36415; 70486; 80048; 80053; 80061; 80143; 80179; 80307; 82947; 83036; 84443; 85025; 90656; 93005; 93971; 99285; S9485

== ENCOUNTER → 2025-06-21 17:55 | Outpatient (BNV) | payer MEDICAID, SELFPAY | PROVIDERS: Visit Provider Radiology Diagnostic Radiology | DX: R51.9 Headache, unspecified (principal) | CPT/HCPCS: 70486 ==

== ENCOUNTER 2025-06-21 21:34 | Outpatient (BNV) | payer MEDICAID, SELFPAY | END 2025-06-25 17:05 | PROVIDERS: Admitting Provider Psychiatry & Neurology Psychiatry; Emergency Provider Emergency Medicine; Visit Provider Radiology Diagnostic Radiology | DX: M71.21 Synovial cyst of popliteal space [Baker], right knee (principal) | CPT/HCPCS: 93971 ==

== ENCOUNTER → 2025-06-21 21:34 | Outpatient (BNV) | payer OTHER, SELFPAY | PROVIDERS: Admitting Provider Psychiatry & Neurology Psychiatry; Emergency Provider Emergency Medicine; Visit Provider Psychiatry & Neurology Psychiatry | DX: F31.81 Bipolar II disorder (principal); F43.10 Post-traumatic stress disorder, unspecified; F10.90 Alcohol use, unspecified, uncomplicated; F14.10 Cocaine abuse, uncomplicated; S06.9X9A Unspecified intracranial injury with loss of consciousness of unspecified duration, initial encounter | CPT/HCPCS: 99232 ==

== ENCOUNTER → 2025-06-21 21:34 | Outpatient (BNV) | payer MEDICAID, SELFPAY | PROVIDERS: Admitting Provider Psychiatry & Neurology Psychiatry; Emergency Provider Emergency Medicine; Visit Provider Nurse Practitioner Family | DX: Z00.8 Encounter for other general examination (principal) | CPT/HCPCS: 99499 ==

== ENCOUNTER 2025-06-30 01:00 | Emergency (ER) | payer MEDICAID, SELFPAY ==
--- OUTSIDE RECORDS SUMMARY | 2025-01-16 12:30 | XMS_ITS ---
Author Organization [facility] Address [address] [place] [address] Care Team Providers Care Roll Grinder Name Role Phone Milo Joshi Primary Care Provider [phone] REASON FOR VISIT Office: 2 month follow up, HUDDLE: HEp B 3; Tdap; see September lab orders, VISIT: raduiculopathy; Mood; tobacco; SA; repstage Hep C, Symptom screening by [facility] staff pre entrance to clinic Medications Medication SIG (Take, Route, Frequency, Duration) Notes Start Date End Date Status ALBUTEROL 90 mcg/inh 2 puff(s) inhaled every 6 hours for 30 days As needed 02/07/2024 Active DULERA 5 mcg-200 mcg/inh 2 puff(s) inhal ed 2 times a day for 30 days 02/07/2024 Active PHENTERMINE 15 mg 1 cap(s) orally once a day (in the morning) for 30 days 09/14/2024 Not-Taking ACETAMINOPHEN 500 mg 2 tab(s) orally every 6 hours for 20 days prn headache 11/14/2024 Active OMEPRAZOLE 40 mg 1 cap(s) orally once a day for 30 days 02/07/2024 Active CHLORPROMAZINE 10 mg 1 tab(s) orally 2 times a day as needed for severe anxiety, agitation, insomnia for 30 days Active GABAPENTIN 300 mg 2 caps orally 3 time s a day for 30 days Active HYDROXYZINE hydrochloride 50 mg 1 tab(s) orally 3 times a day as needed for anxiety for 30 days Active METHADONE 5 mg 80 mg orally daily Active PRAZOSIN 2 mg 1 cap(s) orally at bedtime for nightmares for 30 days Active LURASIDONE 20 mg 1 tab(s) orally take once a day in evening with 350 calories for 30 days Active MIRTAZAPINE 7.5 mg 1 tab orally once a day at bedtime as needed for insomnia for 30 days Active Social History Sex Assigned At : Social History Observation Description Sex Assigned At Male Encounters Encounter Location Date Provider Diagnosis [facility] [facility] [place] [id number] 01/16/2025 Milo Joshi Encounter for screening for COVID-19 Z11.52 Assessments Encounter Date Diagnosis (ICD Code) Assessment Notes Treatment Notes Treatment Clinical Notes Section Notes 01/16/2025 Encounter for screening for COVID-19 (ICD-10 - Z11.52) Covid screening is negative. Discussed in detail with patient how to practice social distancing by avoiding public spaces and crowds now, wearing a mask in public to keep nose and mouth covered, and washing hands frequently especially before eating and after using the bathroom. Return to clinic if you develop any symtpoms of concern to be rescreened or go to the emergency room if you are having concerning symptoms for COVID-19. 01/16/2025 Other Plan Of Treatment Treatment Notes Assessment Notes Encounter for screening for COVID-19 Cov id screening is negative. Discussed in detail with patient how to practice social distancing by avoiding public spaces and crowds now, wearing a mask in public to keep nose and mouth covered, and washing hands frequently especially before eating and after using the bathroom. Return to clinic if you develop any symtpoms of concern to be rescreened or go to the emergency room if you are having concerning symptoms for COVID-19. Next Appt Details Provider Name:Melanie Monge, 07/20/2025 09:00:00 AM, [address] [place] [address], [id number], Provider Name:Chela moseley, 07/23/2025 11:00:00 AM, [address] [place] [address], [phone], Progress Notes * Papo TRAN:[birth year] (40 yo M)Acc No.[id number]:01/16/2025 Progress Notes Patient: Rey THORNTON Provider: Maldonado Joshi MD :1985 A ge:39 Y S ex:Male Date:01/16/2025 Address:[address] [place] [facility], [id number] Subjective: * Chief Complaints: * 1 . Office: 2 month follow up. 2. HUDDLE: HEp B 3; Tdap; see September lab orders. 3. VISIT: raduiculopathy; Mood; tobacco; SA; repstage Hep C. 4. Symptom screening by [facility] staff pre entrance to clinic. * HPI: G eneral: Symptom Screen: - Fever in the last 1 week? Patient denies - New or worsening cough in the last 1 week? Patient denies. - Contact will known COVID exposure in last 5 days? Patient denies -new rash within last 3 weeks? Patient denies - Have you received the COVID-19 vaccine? yes - Have you received COVID-19 booster? yes - Have you been tested positive for COVID -19 in the last 7 days? If so where and why? RN/MA: AB: H UDDLE: HEp B 3; Tdap; see September lab orders, VISIT: raduiculopathy; Mood; tobacco; SA; repstage Hep C, As of 6:20 had not arrive dfor 4:30 appt. called [phone]. No answer C Alled 2nd time: Answered. says he just got back to the area. He had no idea about the appt. Says he not feelign great-hoarse/small cold. Green phlegm as well for 4 days. Tobacco: Then said he had to trhow up and I agreed to call him back Calling again 6:29 - not answering. VM left. Tried again at 6:33. same. 8:15 - same 8:38 - same I will ask team vesna call him. * ROS: N o acute C/P no acute SOB, No problem with urine, No heartburn or abdominal pain. Endorses being able to climb one fight of stairs without stopping due to SOB, Mood: stable, appetite: good, sleeping well. Denies new skin rashes. * Medical History: * Medications: T aking LURASIDONE 20 mg tablet 1 tab(s) orally take once a day in evening with 350 calories , Taking MIRTAZAPINE 7.5 mg tablet 1 tab orally once a day at bedtime as needed for insomnia , Taking HYDROXYZINE hydrochloride 50 mg tablet 1 tab(s) orally 3 times a day as needed for anxiety , Taking GABAPENTIN 300 mg capsule 2 caps orally 3 times a day , Taking CHLORPROMAZINE 10 mg tablet 1 tab(s) orally 2 times a day as needed for severe anxiety, agitation, insomnia , Taking PRAZOSIN 2 mg capsule 1 cap(s) orally at bedtime for nightmares , Taking METHADONE 5 mg tablet 80 mg orally daily , Taking DULERA 5 mcg-200 mcg/inh aerosol 2 puff(s) inhaled 2 times a day , Taking ALBUTEROL 90 mcg/inh aerosol 2 puff(s) inhaled every 6 hours As needed, Taking OMEPRAZOLE 40 mg delayed release capsule 1 cap(s) orally once a day , Taking ACETAMINOPHEN 500 mg tablet 2 tab(s) orally every 6 hours prn headache, Not-Taking/PRN PHENTERMINE 15 mg capsule 1 cap(s) orally once a day (in the morning) Objective: * Vitals: Assessment: * Assessment: 1. E ncounter for screening for COVID-19 - Z11.52 (Primary) Plan: * Treatment: * Images: Billing Information: * Visit Code: * Procedure Codes: Care Plan Details* * Electronic signature of Ariella Joshi MD on 06/30/2025 at 01:23 AM EDT Sign off status: Pending * Provider: Maldonado Joshi MD Date: 0 01/16/2025 Generated for Angélica dinh/Toni/Krystal on: 1 01:23 AM EDT
--- OUTSIDE RECORDS SUMMARY | 2025-02-01 09:30 | XMS_ITS ---
Author Organization [facility] Address [address] [place] [phone] Care Team Providers Care Candy Forming Machine Operator Name Role Phone Milo Joshi Primary Care Provider Melanie Monge Unavailable [phone] REASON FOR VISIT PHONE: med mgt Medications [...] Encounters Encounter Location Date Provider Diagnosis [facility] [address] [place] [address] [facility] [place] [phone] 02/01/2025 Melanie Monge Plan Of Treatment Next Appt Details Provider Name:Edisongriselda GoodrichSaleem, 07/20/2025 09:00:00 AM, [address] [place] [address], [phone], Provider Name:Chela omseley, 07/23/2025 11:00:00 AM, [address] [place] [address], [phone], Progress Notes * Rey TRANDOB:[birth year] (40 yo M)Acc No.[id number]:02/01/2025 Progress Notes Patient: Rey THORNTON Provider: Lizeth Monge PMHNP-BC :1985 A ge:40 Y S ex:Male Date:02/01/2025 Address:[address] [place], [place] [id number] Pcp:Milo Joshi Subjective: * Chief Complaints: * 1 . PHONE: [facility]. * Medical History: * Medications: T aking [...] border-collapse:collapse; position:relative; width:99%; margin-left: 1px; table-layout:fixed; word-break:break-word; -mm-btbt-eedp:break-word; class= jnfwu-co-uxkbq-table ><tbody><tr><td style="border: 0.5px solid; paddinpx; width:100px; min-width:100px; [...] width:100px; min-width:100px; box-sizing:border-box; font-size:13.33px; min- height: 20px; ><content>[id number]</content></td><td style= border: 0.5px solid; paddinpx; width:100px; min-width:100px; box-sizing:border-box; font-size:13.33px; min- height: 20px; ><content>[facility] (1877)</content></td><td style="border: 0.5px solid; paddinpx; width:100px; min-width:100px; box-sizing:border-box; font- size:13.33px; min-height: 20px; >0/2</td></tr></tbody></table><table style= left: -600px !important; border: 0.5px solid; border-collapse:collapse; position:relative; width:99%; margin-left: 1px; table-layout:fixed; word-break:break-word; -mv-tukf-ikfg:break-word;" class= rzkki-fw-rmgpv-table ><tbody><tr><td style= border: 0.5px solid; paddinpx; width:100px; [...] width:100px; min-width:100px; box-sizing:border-box; font-size:13.33px; min- height: 20px; ><content>[id number]</content></td><td style= border: 0.5px solid; paddinpx; width:100px; min-width:100px; box-sizing:border-box; font-size:13.33px; min- height: 20px; ><content>[facility] (1877)</content></td><td style= border: 0.5px solid; paddinpx; width:100px; min-width:100px; box-sizing:border-box; font-size:13.33px; min- height: 20px; >0/2</td></tr></tbody></table>. Assessment: Plan: * Treatment: * Images: Billing Information: * Visit Code: * Procedure Codes: Care Plan Details* * Electronic signature of MIRTHA Feng on 06/30/2025 at 01:23 AM EDT Sign off status: Pending * Provider: REGGIE MixP- Date: 0 02/01/2025 Generated for Richiei allegra/Faxing/eTransmitting on: 1 01:23 AM EDT History and Physical Notes * Examination Category Sub-Category Detail Notes Category Not es Psychiatry MassPat Review as appropriate 504/505/ 51Gabapentin 300 Mg [id number] (1877)0
--- OUTSIDE RECORDS SUMMARY | 2025-05-19 17:00 | XMS_ITS ---
Author Organization [facility] Address [address] [place] [phone] Care Team Providers Care Manufactured Buildings Supervisor Name Role Phone Milo Joshi Primary Care Provider Migration, Provider Unavailable Unavailable Allergies Allergen (clinical drug ingredient) Drug/Non Drug Allergy documented on EMR Reaction Allergy Type Onset Date Status amoxicillin Amoxicillin hives Drug Allergy Act perla REASON FOR VISIT [facility] To [facility] Conversion Encounter Medications Medication SIG (Take, [...] Male Encounters Encounter Location Date Provider Diagnosis [address] [address] 05/19/2025 Provider Migration Plan Of Treatment Next Appt Details Provider Name:Melanie Monge, 07/20/2025 09:00:00 AM, [address] [place] [address], [phone], Provider Name:Chela moseley, 07/23/2025 11:00:00 AM, [address] [place] [address], [phone], Progress Notes * Rey TRANDOB:[birth year] (40 yo M)Acc No.[id number]:05/19/2025 Patient: Rey THORNTON Provider: :1985 A ge:40 Y S ex:Male Date:05/19/2025 Address:[address] [place] [id number] Pcp:Milo Joshi Subjective: * Chief Complaints: * [facility] . [facility] * Medical History: * Medications: [...] Electronic signature of Prov ider Migration on 06/30/2025 at 01:25 AM EDT Sign off status: Pending * Provider: Date: 0 05/19/2025 Generated for Angélica dinh/Toni/Krystal on: 01:25 AM EDT
--- OUTSIDE RECORDS SUMMARY | 2025-06-28 07:41 | XMS_ITS ---
Author Organization [facility] Address [address] [place] [phone] Care Team Providers Care [place] Hammerer Name Role Phone Milo Joshi Primary Care Provider [phone] Chela Torres Unavailable [phone] REASON FOR VISIT hosp f/u Social History Sex Assigned At : Social History Observation Description Sex Assigned At Male Encounters Encounter Location Date Provider Diagnosis [address] [phone] 06/28/2025 Chela Torres Plan Of Treatment Next Appt Details Provider Name:Melanie Monge, 07/20/2025 09:00:00 AM, [address] [place] [address], [phone], Provider Name:Chela moseley, 07/23/2025 11:00:00 AM, [address] [place] [address], [phone], Progress Notes * CHELSEA ReyDOB:[birth year] (40 yo M)Acc No.[id number]:06/28/2025 Patient: Rey THORNTON :1985 A ge:40 Y S ex:Male Address:[address] [place] [address], [phone] * true * Date: Generated for Richiei ng/Fajoseg/eTransmitting on: 01:24 AM EDT
[2025-06-30 01:07] VITALS: BP 149/6; PULSE 114; RESP 20; TEMP 36.8; O2SAT 94; BMI 30.2
--- NOTE | 2025-06-30 01:16 | ECG_ITS ---
Test Reason : OD Blood Pressure : */* mmHG Vent. Rate : 104 BPM Atrial Rate : 104 BPM P-R Int : 126 ms QRS Dur : 86 ms QT Int : 330 ms P-R-T Axes : 76 47 68 degrees QTcB Int : 433 ms Sinus tachycardia Otherwise normal ECG When compared with ECG of 21-Jun-2025 19:55, No significant change was found Referred By: Generic ED Physician Electronically Signed By: KATIE ULLOA MD
--- OUTSIDE RECORDS SUMMARY | 2025-06-30 01:23 | XMS_ITS | Clinical Summary ---
Author Organization [employer] Address [address] [facility] [address] [place] [address] Care Team Providers Care Houseperson Name Role Phone Unavailable Primary Care Provider Unavailabl e Social History Tobacco Use Types Packs/Day Years [...] patient's age to complete this topic Insurance [facility] C3
--- OUTSIDE RECORDS SUMMARY | 2025-06-30 01:24 | XMS_ITS | Clinical Summary ---
Author Organization [facility] Address [address] [place] [address] Phone Care Team Providers Care Caponizer Name Role Phone Physician, No Pcp Primary Care Provider Unavaila ble Allergies Active Allergy Reactions Criticality Noted Date Comments Penicillins Anaphylaxis High 05/30/2025 Encounters Date Type Department Care Team Description 05/30/2025 2:18 AM EDT - 05/30/2025 3:55 AM EDT Emergency [facility] Emergency [address] [place] [address] Jose Sierra MD Chest pain, [...] Impression: Normal right hip series. Telerad JACKELIN ([id number]) -------- FINAL REPORT -------- Dictated By: Laly Nelson Dictated Date: 05/30/2025 09:10 ET Assigned Physician: Laly Nelson Reviewed and Electronically Signed By: Laly Nelson Signed Date: 05/30/2025 09:11 ET Workstation ID: [id number] Transcribed By: Self Edit Transcribed Date: 05/30/2025 [...] Impression: Normal right hip series. Telerad PA ([id number]) -------- FINAL REPORT -------- Dictated By: Laly Nelson Dictated Date: 05/30/2025 09:10 ET Assigned Physician: Laly Nelson Reviewed and Electronically Signed By: Laly Nelson Signed Date: 05/30/2025 09:11 ET Workstation ID: [id number] Transcribed By: Self Edit Transcribed Date: 05/30/2025 09:10 ET Jose Sierra MD IMG XR PROCEDURES Final Re sult * XR Chest 2 Views (05/30/2025 2:35 AM EDT) Anatomical Region Laterality Modality Body Radiographic Charlene ging 05/30/2025 9:08 AM EDT Impressions 05/30/2025 9:10 AM EDT Impression: 1. Hyperinflated lungs. 2. Probable pleural scarring at the right base, unchanged from the previous study. Telerad PA ([id number]) -------- FINAL REPORT -------- Dictated By: Laly Nelson Dictated Date: 05/30/2025 09:08 ET Assigned Physician: Laly Nelson Reviewed and Electronically Signed By: Laly Nelson Signed Date: 05/30/2025 09:10 ET Workstation ID: [id number] Transcribed By: Self Edit Transcribed Date: 05/30/2025 [...] base, unchanged from theprevious study. Telerad PA ([id number]) -------- FINAL REPORT -------- Dictated By: Laly Nelson Dictated Date: 05/30/2025 09:08 ET Assigned Physician: Laly Nelson Reviewed and Electronically Signed By: Laly Nelson Signed Date: 05/30/2025 09:10 ET Workstation ID: [id number] Transcribed By: Self Edit Transcribed Date: 05/30/2025 09:08 ET Jose Sierra MD IMG XR PROCEDURES Final Re sult * ECG 12 lead (05/30/2025 2:14 AM EDT) [facility] Ventricular Rate ECG 70 BPM GEMUSE Atrial Rate 70 BPM GEMUSE P-R Interval 148 ms GEMUSE QRS Duration 92 ms GEMUSE Q-T Interval 400 ms GEMUSE QTc 432 ms GEMUSE P Wave [place] 23 degrees GEMUSE R [place] 32 degrees GEMUSE T [place] 49 degrees GEMUSE ECG Interpretation Normal sinus rhythm Normal ECG When compared with ECG of 26-SEP-2023 13:18, No significant change was found Confirmed by JILLIAN SANTOS ([id number]) on 05/31/2025 11:25:48 AM GEMUSE 05/30/2025 2:14 AM EDT 05/31/2025 11:25 AM EDT Jose Sierra MD ECG ORDERABLES Final Resu lt GEMUSE * Troponin I high sensitivity (05/30/2025 2:09 AM EDT) [facility] High Sensitivity Troponin I 8 <=79 ng/L LAB CHEMISTRY METHOD 05/30/2025 2:51 AM EDT [facility] Blood Venous blood specimen / Unknown Venipuncture / Unknown 05/30/2025 2:09 AM EDT 05/30/2025 2:12 AM EDT Narrative [facility] - 05/30/2025 2:51 AM EDT High levels of biotin in samples may falsely decrease hsTroponin values. Use caution when interpreting hsTroponin results in patients taking biotin who exhibit renal impairment (eGFR <60) or in patients taking more than 20 mg/day of biotin. us Jose Sierra MD LAB BLOOD ORDERABLES Final Result [facility] [address] [place] [address], * (ABNORMAL) CBC auto differential (05/30/2025 2:09 AM EDT) WBC 6.7 4.8 - 10.8 K/mcL LAB HEMETOLOGY METHOD 05/30/2025 2:50 AM EDT [facility] RBC 3.70(L) 4.50 - 5.50 M/mcL LAB HEMETOLOGY METHOD 05/30/2025 2:50 AM EDT [facility] Hemoglobin 11.4(L) 13.5 - 17.5 g/dL LAB HEMETOLOGY METHOD 05/30/2025 2:50 AM EDT [facility] Hematocrit 33.5(L) 42.0 - 54.0 % LAB HEMETOLOGY METHOD 05/30/2025 2:50 AM EDT [facility] MCV 89.8 79.0 - 98.0 FL LAB HEMETOLOGY METHOD 05/30/2025 2:50 AM EDT [facility] MCH 30.6 27.0 - 32.0 pcg LAB HEMETOLOGY METHOD 05/30/2025 2:50 AM [facility] MCHC 34.0 32.0 - 37.0 g/dL LAB HEMETOLOGY METHOD 05/30/2025 2:50 AM [facility] RDW 13.1 11.0 - 15.0 % LAB HEMETOLOGY METHOD 05/30/2025 2:50 AM [facility] Platelets 381 130 - 400 K/mcL LAB HEMETOLOGY METHOD 05/30/2025 2:50 AM [facility] MPV 9.7 7.0 - 11.0 FL LAB HEMETOLOGY METHOD 05/30/2025 2:50 AM [facility] NRBC 0.0 <1.0 % LAB HEMETOLOGY METHOD 05/30/2025 2:50 AM [facility] NRBC Absolute 0.00 <0.10 K/mcL LAB HEMETOLOGY METHOD 05/30/2025 2:50 AM [facility] Neutrophils Relative 66.2 % LAB HEMETOLOGY METHOD 05/30/2025 2:50 AM [facility] Lymphocytes Relative 24.9 % LAB HEMETOLOGY METHOD 05/30/2025 2:50 AM [facility] Monocytes Relative 7.1 % LAB HEMETOLOGY METHOD 05/30/2025 2:50 AM [facility] Eosinophils Relative 1.3 % LAB HEMETOLOGY METHOD 05/30/2025 2:50 AM [facility] Basophils Relative 0.4 % LAB HEMETOLOGY METHOD 05/30/2025 2:50 AM [facility] Immature Granulocytes Relative 0.1 % LAB HEMETOLOGY METHOD 05/30/2025 2:50 AM [facility] Neutrophils Absolute 4.45 1.50 - 7.00 K/mcL LAB HEMETOLOGY METHOD 05/30/2025 2:50 AM EDT [facility] Lymphocytes Absolute 1.68 1.00 - 5.00 K/mcL LAB HEMETOLOGY METHOD 05/30/2025 2:50 AM EDT [facility] Monocytes Absolute 0.48 0.20 - 1.00 K/mcL LAB HEMETOLOGY METHOD 05/30/2025 2:50 AM EDT [facility] Eosinophils Absolute 0.09 0.00 - 0.50 K/mcL LAB HEMETOLOGY METHOD 05/30/2025 2:50 AM EDT [facility] Basophils Absolute 0.03 0.00 - 0.20 K/mcL LAB HEMETOLOGY METHOD 05/30/2025 2:50 AM EDT [facility] Immature Granulocytes Absolute 0.01 0.00 - 0.03 K/mcL LAB HEMETOLOGY METHOD 05/30/2025 2:50 AM EDT [facility] Blood Venous blood specimen / Unknown Venipuncture / Unknown 05/30/2025 2:09 AM EDT 05/30/2025 2:12 AM EDT Jose Sierra MD LAB BLOOD ORDERABLES Final Result [facility] [address] [place] [address], * (ABNORMAL) Basic metabolic panel (05/30/2025 2:09 AM EDT) Sodium 136 133 - 145 mmol/L LAB CHEMISTRY METHOD 05/30/2025 2:48 AM EDT [facility] Potassium 3.7 3.5 - 5.5 mmol/L LAB CHEMISTRY METHOD 05/30/2025 2:48 AM T [facility] Chloride 104 96 - 110 mmol/L LAB CHEMISTRY METHOD 05/30/2025 2:48 AM EDT [facility] CO2 26 21 - 32 mmol/L LAB CHEMISTRY METHOD 05/30/2025 2:48 AM T [facility] Anion Gap 6 3 - 11 LAB CHEMISTRY METHOD 05/30/2025 2:48 AM [facility] Glucose 106(H) 70 - 100 mg/dL LAB CHEMISTRY METHOD 05/30/2025 2:48 AM [facility] BUN 7 5 - 25 mg/dL LAB CHEMISTRY METHOD 05/30/2025 2:48 AM [facility] Creatinine 0.80 0.70 - 1.30 mg/dL LAB CHEMISTRY METHOD 05/30/2025 2:48 AM [facility] eGFR 114 >=60 mL/min/1. 73m2 LAB CHEMISTRY METHOD 05/30/2025 2:48 AM [facility] Comment:Calculation based on the Chronic Kidney Disease Epidemiology Collaboration (CKD-EPI) equation refit without adjustment for race. BUN/Creatinine Ratio 8.8 LAB CHEMISTRY METHOD 05/30/2025 2:48 AM [facility] Calcium 9.2 8.5 - 10.5 mg/dL LAB CHEMISTRY METHOD 05/30/2025 2:48 AM [facility] Blood Venous blood specimen / Unknown Venipuncture / Unknown 05/30/2025 2:09 AM EDT 05/30/2025 2:12 AM EDT Jose Sierra MD LAB BLOOD ORDERABLES Final Result [facility] [address] [place] [address], * ECG-Annotated (05/30/2025) us Provider Onbase ECG ORDERABLES Final Result from Last 3 Months Insurance MEDICAID - [place] Care Teams Caponizer Relationship Specialty Start Date End Date Physician, No Pcp PCP - General 05/30/25
--- OUTSIDE RECORDS SUMMARY | 2025-06-30 01:25 | XMS_ITS | Patient Health Record ---
Author Organization [facility] Address [address] [place] [address] Care Team Providers Care Hat Blocking Machine Operator Name Role Phone Milo Joshi Primary Care Provider Melanie Monge Unavailable [phone] [facility], Nursing Unavailable [phone] Chela Torres Unavailable [phone] [facility], CH[facility] Unavailable [phone] Casionan, Eddieliza Unavailable [phone] [facility], Provider Unavailable Unavailable Allergies Allergen (clinical [...] Referral Reason Spine an d Sport [facility] [facility] patient with right lumbar radiuculitis who is s/p two spinal surgeries 10 years ago. Did reasonably well with epidurals and wants to avoid surgery Diagnosis 1 Radiculopathy, lumba r region (M54.16) Referral Organization [facility] Referring Provider First Name Milo Referring Provider Last Name Madelyn Referring Provider Speciality Internal M edicine Referred Organization [facility] Referred Provider Kuldeep Leo and S port Referred Address [address] [place] [address],[place], [place],[id number], Referred Provider Specialty Physical Med icine and Rehabilitation General Notes Cass Kingsley 09/15/2024 02:49:56 PM > Faxed to [facility], [id number] x 12 visits Clinical Notes Referral # [id number] D Referral Priority Routine Medications Medication SIG [...] review and pick correct strength-formulat ion from [facility] options. If intended option is not shown, [...] nts Hepatitis A IM Intramuscular 07/06/2018 Administered [facility] 5 [id number] Influenza IM Intramuscular 07/06/2018 Administered [facility] 49 [id number] Hepatitis B (20 or more) IM Intramuscular 09/22/2019 Administered Influenza IM Intramuscular 10/02/2019 Administered [place] 49 [id number] Influenza Unknown 05/29/2016 Administered Td Unknown 11/07/2008 [...] CHD Worker CSP [phone] CHD Worker CSP x 3 months re ferral from [facility] [phone] CHD Worker CSP x 3 months re ferral from [facility] [phone] CHD Worker CSP x 3 months re ferral from [facility] [phone] CHD Worker CSP x 3 months re ferral from [facility] [phone] CHD Worker CSP x 3 months re ferral from [facility] [phone] CHD Worker CSP x 3 months re ferral from [facility] [phone] CHD Worker CSP x 3 months re ferral from [facility] [phone] CHD Worker CSP x 3 months re ferral from [facility] [phone] CHD Worker CSP x 3 months re ferral from [facility] [phone] CHD Worker CSP x 3 months re ferral from [facility] [phone] CHD Worker CSP x 3 months re ferral from [facility] [phone] CHD Worker CSP x 3 months re ferral from [facility] [phone] CHD Worker CSP x 3 months re ferral from [facility] [phone] CHD Worker CSP x 3 months re ferral from [facility] [phone] CHD Worker CSP x 3 months re ferral from [facility] [phone] CHD Worker CSP x 3 months re ferral from [facility] [phone] CHD Worker CSP x 3 months re ferral from [facility] [phone] CHD Worker CSP x 3 months re ferral from [facility] [phone] CHD Worker CSP x 3 months re ferral from [facility] [phone] CHD Worker CSP x 3 months re ferral from [facility] [phone] CHD Worker CSP x 3 months re ferral from [facility] [phone] CHD Worker CSP x 3 months re ferral from [facility] [phone] CHD Worker CSP x 3 months re ferral from [facility] [phone] CHD Worker CSP x 3 months re ferral from [facility] [phone] CHD Worker CSP x 3 months re ferral from [facility] [phone] CHD Worker CSP x 3 months re ferral from [facility] [phone] CHD Worker CSP x 3 months re ferral from [facility] [phone] CHD Worker CSP x 3 months re ferral from [facility] [phone] CHD Worker CSP x 3 months re ferral from [facility] [phone] CHD Worker CSP x 3 months re ferral from [facility] [phone] CHD Worker CSP x 3 months re ferral from [facility] [phone] CHD Worker CSP x 3 months re ferral from [facility] [phone] CHD Worker CSP x 3 months re ferral from [facility] [phone] CHD Worker CSP x 3 months re ferral from [facility] [phone] CHD Worker CSP x 3 months re ferral from [facility] [phone] CHD Worker CSP x 3 months re ferral from [facility] [phone] CHD Worker CSP x 3 months re ferral from [facility] [phone] CHD Worker CSP x 3 months re ferral from [facility] [phone] CHD Worker CSP x 3 months re ferral from [facility] [phone] CHD Worker CSP x 3 months re ferral from [facility] [phone] CHD Worker CSP x 3 months re ferral from [facility] [phone] Problems Problem Type SNOMED Code ICD Code Onset Dates Problem Status W/U Status Risk Notes Problem Chronic hepatitis C (360747666) Chronic viral hepatitis C (B18.2) Active confirmed Problem Obesity (804123603) Obesity, unspecified (E66.9) Active confirmed Problem Alcohol abuse (17732575) Alcohol abuse, uncomplicated (F10.10) Active confirmed Problem Opioid abuse (6197291) Opioid abuse, uncomplicated (F11.10) Active confirmed Problem Tobacco user (662569858) Nicotine dependence, cigarettes, uncomplicated (F17.210) Active confirmed Problem Psychoactive substance abuse (58384297) Other psychoactive substance abuse, uncomplicated (F19.10) Active confirmed Problem Bipolar affective disorder, currently depressed, mild (695428672) Bipolar disorder, current episode depressed, mild (F31.31) Active confirmed Problem Bipolar affective disorder, currently depressed, moderate (055589175) Bipolar disorder, current episode depressed, moderate (F31.32) Active confirmed Problem Bipolar disorder (36183323) Bipolar disorder, unspecified (F31.9) Active confirmed Problem Anxiety disorder (550119140) Anxiety disorder, unspecified (F41.9) Active confirmed Problem Posttraumatic stress disorder (01028723) Post-traumatic stress disorder, chronic (F43.12) Active confirmed Problem Insomnia disorder related to another mental disorder (62498528) Insomnia due to other mental disorder (F51.05) Active confirmed Problem Essential hypertension (51958177) Essential (primary) hypertension (I10) Active confirmed Problem Uncomplicated moderate persistent asthma (127099455) Moderate persistent asthma, uncomplicated (J45.40) Active confirmed Problem Gastro-esophageal reflux disease without esophagitis (435652310) Gastro-esophagea l reflux disease without esophagitis (K21.9) Active confirmed Problem Lumbar radiculopathy (045845093) Radiculopathy, lumbar region (M54.16) Active confirmed Problem Nondependent cocaine abuse in remission (866741263) Cocaine abuse, in remission (F14.11) Active confirmed Problem Body mass index 35.00 to 39.99 (415937930760452) Body mass index [BMI] 37.0-37.9, adult (Z68.37) Active confirmed Problem Sheltered homelessness (646877827315241) Sheltered homelessness (Z59.01) Active confirmed Problem 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35) Inactive confirmed Problem Carpal tunnel syndrome (92802051) Carpal tunnel syndrome, bilateral upper limbs (G56.03) Inactive confirmed Vital Signs Temperature 97.1 degrees Fahrenheit 11/16/2024 Blood pressure diastolic 91 10/12/2024 Oximetry 96 09/14/2024 Height 72 in 11/16/2024 Blood pressure systolic 144 10/12/2024 Weight 278 lbs 09/14/2024 BMI 37.7 kg/m2 09/14/2024 Procedures Procedure Date Ordered Date Performed Result Body Sit e EKG 10/12/2024 10/12/2024 Normal Encounters Encounter Location Date Provider Diagnosis [id number] [place] [address] 05/19/2025 Provider Migration [facility] [address] [place], [place] [id number] 09/14/2024 Milo Joshi Chronic viral hepatitis C [...] Body mass index [BMI] 37.0-37.9, adult Z68.37 [facility] [address] [id number] 09/21/2024 [facility] Bipolar disorder, unspecified F31.9 [facility] [address] [place] [address] [place], [place] [id number] 10/04/2024 Melanie Monge Bipolar disorder, current episode depressed, moderate F31.32 ; Insomnia due to other mental disorder F51.05 ; Cocaine abuse, in remission F14.11 ; Anxiety disorder, unspecified F41.9 ; Post-traumatic stress disorder, chronic F43.12 and Opioid abuse, uncomplicated F11.[address] [address] 10/12/2024 Milo Joshi Encounter for screening for COVID-19 Z11.52 ; Cervicalgia M54.2 ; Obesity, unspecified E66.9 ; Sheltered homelessness Z59.01 ; Bipolar disorder, current episode depressed, mild F31.31 ; Essential (primary) hypertension I10 ; Concussion with loss of consciousness of unspecified duration, initial encounter S06.0X9A and Other psychoactive substance abuse, uncomplicated F19.10 [facility] [place] [id number] 11/14/2024 Milo Balder Chest pain, unspecified R07.9 and Disappearance and of family member Z63.4 [facility] [address] [id number] 11/16/2024 Nursing [facility] Encounter for screening, unspecified Z13.9 [facility] [address] [id number] 11/21/2024 [facility] [address] [place] [address] [place], [place] [id number] 11/24/2024 Melanie Monge Insomnia due to other mental disorder F51.05 ; Bipolar disorder, current episode depressed, moderate F31.32 ; Cocaine abuse, in remission F14.11 ; Anxiety disorder, unspecified F41.9 ; Post-traumatic stress disorder, chronic F43.12 ; Opioid abuse, uncomplicated F11.10 ; Disappearance and of family member Z63.4 and Encounter for screening for COVID-19 Z11.52 [facility] [address] [place] [address] SERVICES [place] [id number] 12/21/2024 Edisongriselda Saleem Insomnia due to other mental disorder F51.05 ; Cocaine abuse, in remission F14.11 ; Bipolar disorder, current episode depressed, moderate F31.32 ; Anxiety disorder, unspecified F41.9 ; Post-traumatic stress disorder, chronic F43.12 ; Opioid abuse, uncomplicated F11.10 ; Disappearance and of family member Z63.4 and Encounter for screening for COVID-19 Z11.52 [facility] [address] [place] [id number] 07/14/2024 Iris Byrd [address] [address] 08/15/2024 Milo Joshi [address] [address] 09/14/2024 Milo Joshi [address] [address] 09/14/2024 Milo Joshi [address] [address] 09/14/2024 Milo Joshi [address] [address] 10/02/2024 Melanie Monge [address] [address] 10/05/2024 Milo Joshi Post-traumatic stress disorder, chronic F43.[address] [address] 10/12/2024 Milo Joshi [address] [address] 10/13/2024 Milo Joshi [address] [address] 11/16/2024 [facility] [address] [place] [id number] 11/16/2024 Milo [facility] [address] [place] [id number] 11/17/2024 Milo Joshi [address] [place] [address] 11/28/2024 Milo Joshi [address] [address] 12/21/2024 Milo Joshi [address] [address] 01/16/2025 Milo Joshi [address] [address] 02/07/2025 Milo Joshi [address] [address] 02/20/2025 Milo Joshi [address] [address] 04/06/2025 Milo Joshi [address] [address] 04/06/2025 Milo Joshi [address] [address] 04/24/2025 Milo Joshi [address] [address] 06/28/2025 Chela Torres Assessments Encounter Date Diagnosis (ICD Code) Assessment [...] (ICD-10 - F31.9) Called [facility] in [facility] [place] due to pt's rceiving daily methadone dose through N they could not guarantee any respite beds. Called [facility] they as well could not guarantee any beds locally but possily in [facility]. Having to report to [facility] [place] daily for methadone dosing would be challenging if pt was to be in a respite not in [place] [place] or near [place] [facility] garbage pick up man for transport. Pt agreeable to go to [facility] for psych eval and possible volunteer admission to inpatient psych. Discussed it was guaranteed to get dosed for methadone and to restart psych meds. During visit pt was able to eat breakfast provided by assisted in RN's office. Transportation provided to pt to assist with getting to [facility] for crisis eval and possible inpatient admission, [...] to proceed with prescribed treatment. 1. [facility] CAMP ASSISTANT reviewed: see Exam 2. Medications: as above, received 1 week of refills from provider in [facility], will cont same doses and send 30 days 3. Cont psychotherapy: has appt 10/05/24 with Nusrat Torres [facility] 4. Labs/Procedures: has new lab orders from [...] Noite for bed rest for next day [facility] will help 10/12/2024 Encounter for screening [...] pain. decided to get xray tomorrow. shay pillow desriced 11/14/2024 Disappearance and of family member [...] Pt had to leave to go to [facility] due to transport arriving. 11/24/2024 Insomnia [...] to proceed with prescribed treatment. 1. Mass CAMP ASSISTANT reviewed: see Exam 2. Medications: as above 3. Cont psychotherapy: has appt next week with Nusrat Conteh [facility]. 4. Labs/Procedures: no new labs for review [...] to proceed with prescribed treatment. 1. Mass CAMP ASSISTANT reviewed: see Exam 2. Medications: as above 3. Psychotherapy: sent TE to Elodia Torres [facility].\ that clt would like to re-engage in [...] is on ne meds right now. Booking reny kailash here. His med mix in complicated 10/04/2024 [...] - S06.0X9A) seems to have recovered well. Feliciaon check [facility] notes 11/24/2024 Disappearance and of family member (ICD-10 - Z63.4) Grievinf sudden of mother. Has therapy appt next week. 12/21/2024 Disappearance and of family member (ICD-10 - Z63.4) Grieving sudden of mother. Will p;bryan to re-engage with therapist. 09/14/2024 Gastro-esophageal reflux disease without esophagitis (ICD-10 - K21.9) Longstanding GERD. Does well with PPI, not H2 bret. also needs to olose weit 10/12/2024 Other psychoactive substance abuse, uncomplicated (ICD-10 - F19.10) doing better at oresent 11/24/2024 Encounter for screening for COVID-19 (ICD-10 - Z11.52) Covid verbal screening negative. 12/21/2024 Encounter for screening for COVID-19 (ICD-10 - Z11.52) Covid verbal screening negative. 09/14/2024 Moderate persistent asthma, uncomplicated (ICD-10 - J45.40) Bettercontrolled-re new Dulera and albuterol 09/14/2024 Sheltered homelessness (ICD-10 - Z59.01) In assisted here, hopes for room 09/14/2024 Obesity, unspecified [...] vac cameron at pharmacy iunclkuding flu, Tdap, [id number] HEpB and COVID 10/04/2024 Other Time spent [...] 02/07/2024 QUANTIFERON(R)-TB GOLD PLUS, 1 TUBE 11/2023 Next Appt Details Provider Name:Melanie Monge, 07/20/2025 09:00:00 AM, [address] [place] [address], [phone], Provider Name:Chela moseley, 07/23/2025 11:00:00 AM, [address] [place] [address], [phone], Insurance Providers Payer Name Payer Address Payer Phone Subscriber Number Group Number Insured Name Patient Relationship to Insured Coverage Start Date Coverage End Date [place] Medicaid C3 [address] [place], [place] [id number] Rey Abad Self - patient is the insured [place] [employer] [facility] [address] [place] [address] [id number] Rey Abad Self - patient is the insured 6 Medical (General) History Medical History History ICD Code Bipolar Disorder PTSD ADHD Polysub abuse Hep C-DX by [facility] no f/u since Rt sided sciatica Tics Opioid abuse, uncomplicated Body mass index [BMI] 40.0-44.9, adult Z 68.41 Surgical History Surgery Date(Month/Year) Laser surgery on back (L5, S1 ) Hospitalization History Reason Date(Month/Year) Sharlene Leroy 2023 Psych admit, [facility] 01/2024 [facility] [place] [facility] pain U/S reveals bake r's Cyst Rt knee F/U DR [facility] [phone] 05/22/2020 [facility] ?acalculous cholecystitis- referr ed to [facility] HIDA scan 12/21/18 [facility] 04/2018 numerous detox admissions
[2025-06-30 01:45] LABS: MANUAL DIFF FLAG NO
[2025-06-30 01:46] LABS: Hematocrit 38.5 % (42.0-52.0); Hemoglobin 13.5 g/dl (14.0-18.0); Imm Gran Abs Auto 0.04 X10*3/uL (0.00-0.03); Imm Gran Pct Auto 0.4 % (0.0-0.4); Lymphocytes Absolute Auto 0.8 X10*3/uL (1.2-4.9); Mean Corpuscular HGB Conc 35.1 g/dl (31.0-36.0); Mean Corpuscular Hemoglobin 31.4 pg (27.0-33.0); Mean Corpuscular Volume 89.5 fL (80.0-98.0); NRBC Abs Auto 0.000 X10*3/uL (0.0-0.012); NRBC Pct Auto 0.0 /100WBC (0.0-0.2); Platelet Count 328 X10*3/uL (160-400); Red Blood Count 4.30 X10*6/uL (4.60-5.80); White Blood Count 9.2 X10*3/uL (4.8-10.8)
--- NOTE | 2025-06-30 01:47 | ED.PSYCH ---
HPI - Psych General Chief Complaint: Overdose Stated Complaint: OD, CHD Crisis recommended Time Seen by Provider: 06/30/25 01:20 Source: patient Mode of arrival: ambulatory Limitations: no limitations History of Present Illness ED Provider: Dr. Kanwal Tamayo HPI Narrative: Patient comes to the emergency room complaining of polysubstance abuse. Patient states that he was discharged a few days ago, patient states that he tried as best as he could to say clean but failed. Patient states that he has been drinking alcohol, using cocaine and fentanyl. Patient states that he is afraid that he may accidentally overdose. Patient states that tonight he did overdose but woke up. Patient denies SI or HI Related Data Previous Rx's ?Medication ?Instructions ?Recorded acetaminophen 325 mg tablet 650 mg (2 x 325 mg) PO Q6H PRN 06/27/25 Headache/Pain, Scale 1-10 #0 tabs albuterol sulfate 90 mcg/actuation 2 puff inhalation Q4H PRN 06/27/25 aerosol inhaler Shortness Of Breath Or Wheezing 30 days #1 inhaler aripiprazole 5 mg tablet (Abilify) 5 mg PO DAILY 30 days #30 tabs 06/27/25 atomoxetine 40 mg capsule 40 mg PO DAILY 30 days #30 caps 06/27/25 bupropion HCl 300 mg 24 hr tablet, 300 mg PO DAILY 30 days #30 tabs 06/27/25 extended release capsaicin 0.075 % topical cream 1 appl topical TID PRN Knee pain 06/27/25 (Arthritis Pain Relief (capsaicin)) 30 days #60 grams gabapentin 300 mg capsule 600 mg (2 x 300 mg) PO TID 30 days 06/27/25 #180 caps guanfacine 1 mg tablet,extended 1 mg PO DAILY 30 days #30 tabs 06/27/25 release 24 hr hydroxyzine HCl 25 mg tablet 25 mg PO TID PRN mild anxiety 30 06/27/25 days #90 tabs ibuprofen 400 mg tablet 400 mg PO Q6H PRN Pain, 06/27/25 Moderate(Pain Scale 4-6) #0 tabs lidocaine 4 % topical patch 1 patch transdermal DAILY PRN 06/27/25 (Lidocaine Pain Relief) lower back pain 30 days #30 ea mirtazapine 15 mg tablet 15 mg PO BEDTIME 30 days #30 tabs 06/27/25 nicotine 21 mg/24 hr daily 21 mg transdermal DAILY PRN 06/27/25 transdermal patch smoking cessation 28 days #28 ea omeprazole 40 mg capsule,delayed 40 mg PO DAILY 30 days #30 caps 06/27/25 release trazodone 50 mg tablet 50 mg PO BEDTIME PRN Insomnia 30 06/27/25 days #30 tabs chlorpromazine 50 mg tablet 50 mg PO TID PRN agitation 30 days 06/28/25 #90 tabs prazosin 2 mg capsule 2 mg PO BEDTIME 30 days #30 caps 06/28/25 Allergies Allergy/AdvReac Type Severity Reaction Status Date / Time amoxicillin (AMOXICILLIN) Allergy Unknown HIVES Verified 06/30/25 01:11 Review of Systems Review of Systems: Constitutional : No Weight loss, No Fever, No Chills, No Night Sweats, No Fatigue, No Malaise ENT/Mouth : No Hearing loss, No Ear Pain, No Nasal Congestion, No Sinus Pain, No Hoarseness, No sore throat, No Rhinorrhea, No Swallowing Difficulty Eyes: No Eye Pain, No Swelling, No Redness, No Foreign Body, No Discharge, No Vision Changes Cardiovascular : No Chest Pain, No SOB, No Dyspnea on Exertion, No Orthopnea, No Edema, No Palpitations Respiratory : No Cough, No Sputum, No Wheezing, No Smoke Exposure, No Dyspnea Gastrointestinal : No Nausea, No Vomiting, No Diarrhea, No Constipation, No abdominal Pain, No Hematochezia, No Melena Genitourinary : no irregular bleeding, No Dysuria, No Urinary Frequency, No Hematuria, No Urinary Incontinence, No Urgency, No Flank Pain, No Urinary Flow Changes, No Hesitancy Musculoskeletal : No joint pain, No Myalgias, No Joint Swelling Skin : No Skin Lesions, No rash Neuro : No Weakness, No Numbness, No Paresthesias, No Loss of Consciousness, No Dizziness, No Headache Psych : Complaining of anxiety, depression, no SI or HI, polysubstance abuse, alcohol abuse Heme/Lymph: No Bruising, No Bleeding,No Lymphadenopathy Endocrine : No Polyuria, No Polydipsia, No Temperature Intolerance PMFSH Past Medical History Medical History Anxious depression Suicide attempt Substance use disorder Depression Polysubstance use disorder Hypertension Bipolar 2 disorder, major depressive episode TBI (traumatic brain injury) PTSD (post-traumatic stress disorder) Surgical History History of mandibular surgery Family History Family History Other No pertinent family history Social History Social History Household Members: Other Household Members Other:: Lives at ex- sister's house. Housing: House Housing Other:: Sober house Do you presently have visiting nurse or other home services: No Alcohol intake: current Alcohol intake frequency: holidays/special occasions only Alcohol type: beer and hard liquor Comment: 1:1 in room Patient Tobacco Use Status: Current everyday Tobacco user Tobacco use type: Cigarette Cigarette Packs Per Day: 1.5 Cigarettes Per Day: 30.0 Years Smoked: 28 Smoked in Last 30 Days: Yes e-Cigarette/Vaping Use: Former Use Second Hand Smoke Exposure: Yes Use of substances other than those prescribed or required for medical reasons: Yes Substance Use Type: Crack/Cocaine, Heroin, IV Drugs and Other Substance Use Type Other:: Fentanyl Advance Directives: No Advance Directives Information Provided: No Do you have a plan to hurt others: No Plan service: No Sexual orientation: Straight/Heterosexual Physical Exam Exam: Exam: Appearance: Alert. Oriented X3. No acute distress. Eyes: Pupils equal, round and reactive to light. ENT: Pharynx normal. Neck: Normal inspection. Neck supple. No lymph nodes noted. No crepitus CVS: Normal heart rate and rhythm. Pulses normal. Normal S1 and S2 Respiratory: No respiratory distress. Breath sounds normal. No Wheezing. No rales Abdomen: Soft and nontender. No rigidity. No distention. Skin: Skin warm and dry. Normal skin color. Normal skin turgor. Extremities: No lower extremity edema. No Lacerations. No Rash Neuro: Oriented X 3. No motor deficit. No sensory deficit. Moving all extremities. No slurred speech. CN 2 through 12 grossly intact Psych: calm, cooperative, normal affect Vital Signs: Vital Signs: Last Vital Signs Temp 98.3 F 06/30/25 01:07 Pulse 114 H 06/30/25 01:07 Resp 20 06/30/25 01:07 BP 149/6 H 06/30/25 01:07 Pulse Ox 94 10/25/25 01:07 O2 Del Method Room Air 06/30/25 01:07 BMI result Body Mass Index 30.2 Course Course Course Narrative: Patient complaining of anxiety, depression, PTSD, polysubstance abuse. All of patient's labs pending Care team consult pending Patient is not SI or HI, voluntary, requesting possible readmission Physician observation started at 01:55 IM Medical Decision Making Medical Decision Making MDM Narrative: Patient was discharged from the hospital 3 days ago, patient was in the inpatient psychiatry unit being treated for bipolar 2 disorder, major depressive episode, PTSD, alcohol use disorder, cocaine use disorder Patient requesting to be seen by the care team Per CARE team: voluntary crisis stabilization, therapeutic group. Referals in progess. If pt can't get in ACCS, he needs inpatient level of care. Patient agrees with plan. not sec 12, pt volunatary. Time: 12:12 Date: 06/30/25 Provider: Destin Montalvo MD Physician observation ended at 12:12 hours. The patient was re-evaluated by the CARE team. The patient was accepted to [facility] respite. Patient will be transferred by [employer] transport. Differential Diagnosis Differential Diagnoses: The differential diagnosis associated with the presentation includes (Anxiety, depression, PTSD, bipolar disorder) Admission/Observation Consideration of admission/observation: Escalation of care including admission/observation considered Lab Data 06/30/25 01:17 06/30/25 01:17 Labs: Lab Results 06/30/25 06/30/25 Range/Units 01:17 03:33 WBC 9.2 (4.8-10.8) X10*3/uL RBC 4.30 L (4.60-5.80) X10*6/uL Hgb 13.5 L (14.0-18.0) g/dl Hct 38.5 L (42.0-52.0) % MCV 89.5 (80.0-98.0) fL MCH 31.4 (27.0-33.0) pg MCHC 35.1 (31.0-36.0) g/dl RDW 13.0 (11.0-16.0) % Plt Count 328 D (160-400) X10*3/uL MPV 8.6 L (9.4-12.4) fL Immature Gran % (Auto) 0.4 (0.0-0.4) % Neut % (Auto) 83.1 H (45-73) % Lymph % (Auto) 9.0 L (20-40) % [place] % (Auto) 6.6 (2-11) % Eos % (Auto) 0.7 (0-4) % Baso % (Auto) 0.2 (0-2) % Lymph # (Auto) 0.8 L (1.2-4.9) X10*3/uL [place] # (Auto) 0.6 (0.1-1.2) X10*3/uL Eos # (Auto) 0.1 (0.0-0.4) X10*3/uL Baso # (Auto) 0.0 (0.0-0.2) X10*3/uL Abs Immat Gran (auto) 0.04 H (0.00-0.03) X10*3/uL Absolute Neuts (auto) 7.7 (2.0-8.3) x10*3/uL Absolute Nucleated RBC 0.000 (0.0-0.012) X10*3/uL Nucleated RBC % (auto) 0.0 (0.0-0.2) /100WBC Sodium 136 (135-145) mmol/L Potassium 4.1 (3.3-5.1) mmol/L Chloride 104 (96-108) mmol/L Carbon Dioxide 23 (22-29) mmol/L Anion Gap 13 (12-20) BUN 16 (9-16) mg/dL Creatinine 0.85 (0.5-1.4) mg/dL Estim Creat Clear Calc 140.7 Estimated GFR > 60 Random Glucose 103 (60-115) mg/dL Calcium 9.0 (8.4-10.2) mg/dL Total Bilirubin 1.1 H (0.0-1.0) mg/dL AST 48 H (5-37) U/L ALT 67 H (0-40) U/L Alkaline Phosphatase 102 (39-117) U/L Troponin I High Sens < 2.7 (<3.5-35.0) ng/L Total Protein 8.0 (6.5-8.0) g/dL Albumin 4.4 (3.5-5.0) g/dL Urine Opiates Screen Not Detected (Not Detect) Ur Buprenorphine Scrn Positive H (Not Detect) ng/mL Ur Oxycodone Screen Not Detected (Not Detect) ng/mL Urine Methadone Screen Not Detected (Not Detect) ng/mL Urine Fentanyl Screen POSITIVE H (Not Detect) Ur Barbiturates Screen Not Detected (Not Detect) Ur Phencyclidine Scrn Not Detected (Not Detect) Ur Amphetamines Screen Not Detected (Not Detect) U Benzodiazepines Scrn Not Detected (Not Detect) Urine Cocaine Screen POSITIVE H (Not Detect) U Marijuana (THC) Screen Not Detected (Not Detect) Ethyl Alcohol < 10 mg/dL Critical Care Time Critical Care Time Critical Care Time: Yes Total Critical Care Time: 35 Attestation: I have personally provided critical care time. Time includes review of lab data, radiology results, discussion with consultants, and monitoring for potential decompensation. Intervention performed as documented. Discharge Plan Discharge Clinical Impression: Polysubstance abuse, Alcohol use disorder Depression Qualifiers: Depression Type: unspecified Qualified Code(s): F32.A - Depression, unspecified Patient Disposition: Xfer Other Transfer Details: [facility] respite Additional Instructions: You were evaluated by our care team and they got a you into the [facility] respite. Continue taking medications as provided by your prescribe errors. Follow the care team instructions. Alcohol use disorder You were seen in the Emergency Department today for treatment of alcohol use disorder.? If you would like to cut down or stop your alcohol use please consider calling our outpatient Addiction Treatment office:? [facility] (M-F [id number]) [address] [place] [address] Prescriptions: No Action atomoxetine 40 mg capsule 40 mg PO DAILY 30 Days Qty: 30 0RF nicotine 21 mg/24 hr Patch 24 Hour 21 mg transdermal DAILY PRN (Reason: smoking cessation) 28 Days Qty: 28 0RF Rx Instructions: remove at bedtime guanfacine 1 mg Tablet Extended Release 24 Hr 1 mg PO DAILY 30 Days Qty: 30 0RF aripiprazole [Abilify] 5 mg Tablet 5 mg PO DAILY 30 Days Qty: 30 0RF bupropion HCl 300 mg Tablet Extended Release 24 Hr 300 mg PO DAILY 30 Days Qty: 30 0RF gabapentin 300 mg Capsule 600 mg PO TID 30 Days Qty: 180 0RF albuterol sulfate 90 mcg/actuation HFA aerosol inhaler 2 puff inhalation Q4H PRN (Reason: Shortness Of Breath Or Wheezing) 30 Days Qty: 1 0RF trazodone 50 mg Tablet 50 mg PO BEDTIME PRN (Reason: Insomnia) 30 Days Qty: 30 0RF lidocaine [Lidocaine Pain Relief] 4 % Adhesive Patch,Medicated 1 patch transdermal DAILY PRN (Reason: lower back pain) 30 Days Qty: 30 0RF Protocol: Apply to: Apply to: Back Rx Instructions: apply to lower back daily as needed capsaicin [Arthritis Pain Relief(capsaic)] 0.075 % Cream 1 appl topical TID PRN (Reason: Knee pain) 30 Days Qty: 60 0RF Protocol: Apply to: Apply to: knee acetaminophen 325 mg Tablet 650 mg PO Q6H PRN (Reason: Headache/Pain, Scale 1-10) Qty: 0 0RF ibuprofen 400 mg Tablet 400 mg PO Q6H PRN (Reason: Pain, Moderate(Pain Scale 4-6)) Qty: 0 0RF omeprazole 40 mg capsule,delayed release(DR/EC) 40 mg PO DAILY 30 Days Qty: 30 0RF hydroxyzine HCl 25 mg tablet 25 mg PO TID PRN (Reason: mild anxiety) 30 Days Qty: 90 0RF mirtazapine 15 mg tablet 15 mg PO BEDTIME 30 Days Qty: 30 0RF prazosin 2 mg capsule 2 mg PO BEDTIME 30 Days Qty: 30 0RF chlorpromazine 50 mg tablet 50 mg PO TID PRN (Reason: agitation) 30 Days Qty: 90 0RF Interventions: [place]-Suicide Risk Severity Scale Last Done: 06/30/25 03:27 Print Language: Moldovan
[2025-06-30 02:03] LABS: Alanine Aminotransferase 67 U/L (0-40); Albumin Level 4.4 g/dL (3.5-5.0); Alkaline Phosphatase 102 U/L (39-117); Anion Gap 13 (12-20); Aspartate Amino Transferase 48 U/L (5-37); Blood Urea Nitrogen 16 mg/dL (9-16); Calcium 9.0 mg/dL (8.4-10.2); Carbon Dioxide 23 mmol/L (22-29); Chloride 104 mmol/L (96-108); Creatinine Clr Calc Pharmacy 140.7; Estimated Glomerular Filt Rate > 60; Potassium 4.1 mmol/L (3.3-5.1); Sodium 136 mmol/L (135-145); Total Protein 8.0 g/dL (6.5-8.0)
[2025-06-30 02:09] LABS: Troponin-I High Sensitivity < 2.7 ng/L (<3.5-35.0)
--- NOTE | 2025-06-30 03:30 | PC.NURSE ---
patient is axox4 ambulatory with steady gait. pt ambulatory to bathroom now to obtain urine sample. pt denies si/hi. per MD Tamayo and Care team's eval by Angelica, pt does not require 1:1 sitter. patient was given coffee and snacks by staff per his request. just given warm blanket per request. nad. resting comfortably in ed stretcher.
[2025-06-30 03:52] LABS: Cannabinoid Screen Urine Not Detected (Not Detect)
[2025-06-30 12:30] VITALS: BP 149/6; PULSE 114; RESP 20; TEMP 36.8; O2SAT 94
--- NOTE | 2025-06-30 12:55 | MHC.RECOVRN ---
Met w/ pt in [facility] after receiving consult for a SUDE following a potential opioid overdose. Pt states he overdosed however it's been acknowledged that no naloxone was used or required for resuscitation. Pt stated he recently got discharge from the psych floor with nothing in place and thus had a recurrence on fentanyl despite trying not to. Chart reviewed revealed that while on m5 SW was working w/ pt and had offered pt a CSS bed at [facility]. Pt was agreeable at first but then changed his mind and requested that he discharges tomorrow at a hotel . Pt was thus discharged. Pt is now an ACCS bed search as he has not been found to be IPLOC. He reports an extensive history of detox, CSS, and TSS admissions with sporadic periods of sobriety. He was asked about withdrawal symptoms however pt is denying them. Pt was asked about MOUD and he declined methadone or suboxone initiation stating are you crazy? I just got off of those, I'm not trying to go backwards . Pt was offered written materials on recovery options or supports but he is declining needing any help at this time from a recovery standpoint. He states he just wants to be discharged and has no desire for MAT. He declined outpatient [facility] appointment for tx of his OUD and declined discussing with the provider in regards to MOUD initiation. No other questions or concerns offered at this time.
== END 2025-06-30 12:31 | disposition home or self-care (01) ==
PROVIDERS: Emergency Provider Emergency Medicine; PCP Nurse Practitioner
DX: F19.10 Other psychoactive substance abuse, uncomplicated (principal); F32.A Depression, unspecified; F10.90 Alcohol use, unspecified, uncomplicated; Y90.0 Blood alcohol level of less than 20 mg/100 ml
CPT/HCPCS: 36415; 80053; 80307; 84484; 85025; 93005; 99284; S9485

== ENCOUNTER → 2025-06-30 01:16 | Outpatient (BNV) | payer MEDICAID, SELFPAY | PROVIDERS: Emergency Provider Emergency Medicine; PCP Nurse Practitioner; Visit Provider Internal Medicine Cardiovascular Disease | DX: R00.0 Tachycardia, unspecified (principal) | CPT/HCPCS: 93010 ==

== ENCOUNTER 2025-07-03 16:39 | Emergency (ER) | payer MEDICAID, SELFPAY ==
--- OUTSIDE RECORDS SUMMARY | 2025-01-16 12:30 | XMS_ITS ---
Author Organization [facility] Address [address] [place] [address] Care Team Providers Care Pack Puller Name Role Phone Milo Joshi Primary Care Provider [phone] REASON FOR VISIT Office: 2 month follow up, HUDDLE: HEp B 3; Tdap; see September lab orders, VISIT: raduiculopathy; Mood; tobacco; SA; repstage Hep C, Symptom screening by [facility] staff pre entrance to clinic Medications Medication [...] Male Encounters Encounter Location Date Provider Diagnosis [facility] [facility] [place] [id number] 01/16/2025 Milo Joshi Encounter for screening for [...] for COVID-19. Next Appt Details Provider Name:Melanie Moneg, 07/20/2025 09:00:00 AM, [address] [place] [address], [phone], Provider Name:Chela moseley, 07/23/2025 11:00:00 AM, [address] [place] [address], [phone], Progress Notes * Papo TRAN:[birth year] (40 yo M)Acc No.[id number]:01/16/2025 Progress Notes Patient: Rey THORNTON Provider: Maldonado Joshi MD :1985 A ge:39 Y S ex:Male Date:01/16/2025 Address:[address] [place] [facility], [id number] Subjective: * Chief Complaints: * 1 . Office: 2 month follow up. 2. HUDDLE: HEp B 3; Tdap; see September lab orders. 3. VISIT: raduiculopathy; Mood; tobacco; SA; repstage Hep C. 4. Symptom screening by [facility] staff pre entrance to clinic. * HPI: [...] had not arrive dfor 4:30 appt. called [phone]. No answer C Alled 2nd time: Answered. [...] Electronic signature of Ariella Joshi MD on 07/03/2025 at 08:15 PM EDT Sign off status: Pending * Provider: Maldonado Joshi MD Date: 0 01/16/2025 Generated for Angélica dinh/Toni/Krystal on: 1 08:15 PM EDT
--- OUTSIDE RECORDS SUMMARY | 2025-02-01 09:30 | XMS_ITS ---
Author Organization [facility] Address [address] [place] [phone] Care Team Providers Care Online Content Developer Name Role Phone Milo Joshi Primary Care Provider [phone] Melanie Monge Unavailable [phone] REASON FOR VISIT PHONE: med mgt Medications Medication SIG (Take, Route, Frequency, Duration) Notes Start Date End Date Status PHENTERMINE 15 mg 1 cap(s) orally once a day (in the morning) for 30 days 09/14/2024 Not-Taking DULERA 5 mcg-200 mcg/inh 2 puff(s) inhal ed 2 times a day for 30 days 02/07/2024 Active ACETAMINOPHEN 500 mg 2 tab(s) orally every 6 hours for 20 days prn headache 11/14/2024 Active OMEPRAZOLE 40 mg 1 cap(s) orally once a day for 30 days 02/07/2024 Active ALBUTEROL 90 mcg/inh 2 puff(s) inhaled every 6 hours for 30 days As needed 02/07/2024 Active GABAPENTIN 300 mg 2 caps orally 3 time s a day for 30 days Active HYDROXYZINE hydrochloride 50 mg 1 tab(s) orally 3 times a day as needed for anxiety for 30 days Active METHADONE 5 mg 80 mg orally daily Active PRAZOSIN 2 mg 1 cap(s) orally at bedtime for nightmares for 30 days Active CHLORPROMAZINE 10 mg 1 tab(s) orally 2 times a day as needed for severe anxiety, agitation, insomnia for 30 days Active MIRTAZAPINE 7.5 mg 1 tab orally once a day at bedtime as needed for insomnia for 30 days Active LURASIDONE 20 mg 1 tab(s) orally take once a day in evening with 350 calories for 30 days Active Social History Sex Assigned At : Social History Observation Description Sex Assigned At Male Encounters Encounter Location Date Provider Diagnosis [facility] [address] [place] [address] [facility] [place] [id number] 02/01/2025 Melanie Monge Plan Of Treatment Next Appt Details Provider Name:Edisongriselda GoodrichSaleem, 07/20/2025 09:00:00 AM, [address] [place] [address], [phone], Provider Name:Chela moseley, 07/23/2025 11:00:00 AM, [address] [place] [address], [phone], Progress Notes * Rey TRANDOB:[birth year] (40 yo M)Acc No.[id number]:02/01/2025 Progress Notes Patient: Rey THORNTON Provider: Lizeth Monge PMHNP-BC :1985 A ge:40 Y S ex:Male Date:02/01/2025 Address:[address] [place], [place] [id number] Pcp:Milo Joshi Subjective: * Chief Complaints: * 1 . [facility] * Medical History: * Medications: T aking [...] day (in the morning) Objective: * Vitals: * Examination: P sychiatry: MassPat Review as appropriate < content>Disclaimer: The table may wrap across multiple pages to prevent transfer of incomplete data. Please use judgement when interpreting the table data and contact the sender for clarifications if required.</content><table style= left: 0px !important; border: 0.5px solid; border-collapse:collapse; position:relative; width:99%; margin-left: 1px; table-layout:fixed; word-break:break-word; -ci-igwv-wtpy:break-word; class= oncgv-ut-lmylf-table ><tbody><tr><td style="border: 0.5px solid; paddinpx; width:100px; min-width:100px; box-sizing:border-box; font-size:13.33px; min-height: 20px; >01/05/2025</td><td style= border: 0.5px solid; paddinpx; width:100px; min-width:100px; box-sizing:border-box; font-size:13.33px; min-height: 20px; >12/21/2024</td><td style= border: 0.5px solid; paddinpx; width:100px; min-width:100px; box-sizing:border-box; font-size:13.33px; min-height: 20px; >01/06/2025</td><td style= border: 0.5px solid; paddinpx; width:100px; min-width:100px; box-sizing:border-box; font-size:13.33px; min-height: 20px; ><content><content>1</content><content></content></content></td><td style= border: 0.5px solid; paddinpx; width:100px; min-width:100px; box-sizing:border-box; font-size:13.33px; min-height: 20px; >Gabapentin 300 Mg Capsule</td><td style= border: 0.5px solid; paddinpx; width:100px; min-width:100px; box-sizing:border-box; font-size:13.33px; min-height: 20px; >180</td><td style= border: 0.5px solid; paddinpx; width:100px; min-width:100px; box-sizing:border-box; font-size:13.33px; min-height: 20px; >30</td><td style= border: 0.5px solid; paddinpx; width:100px; min-width:100px; box-sizing:border-box; font-size:13.33px; min-height: 20px; ><content>Ho Gar</content></td><td style= border: 0.5px solid; paddinpx; width:100px; min-width:100px; box-sizing:border-box; font-size:13.33px; min- height: 20px; ><content>[id number]</content></td><td style= border: 0.5px solid; paddinpx; width:100px; min-width:100px; box-sizing:border-box; font-size:13.33px; min- height: 20px; ><content>[facility] (1877)</content></td><td style="border: 0.5px solid; paddinpx; width:100px; min-width:100px; box-sizing:border-box; font- size:13.33px; min-height: 20px; >0/2</td></tr></tbody></table><table style= left: -600px !important; border: 0.5px solid; border-collapse:collapse; position:relative; width:99%; margin-left: 1px; table-layout:fixed; word-break:break-word; -pr-egab-reeg:break-word;" class= thskw-fo-wmjdr-table ><tbody><tr><td style= border: 0.5px solid; paddinpx; width:100px; min-width:100px; box-sizing:border-box; font-size:13.33px; min-height: 20px; >01/05/2025</td><td style= border: 0.5px solid; paddinpx; width:100px; min-width:100px; box-sizing:border-box; font-size:13.33px; min-height: 20px; >12/21/2024</td><td style= border: 0.5px solid; paddinpx; width:100px; min-width:100px; box-sizing:border-box; font-size:13.33px; min-height: 20px; >01/06/2025</td><td style= border: 0.5px solid; paddinpx; width:100px; min-width:100px; box-sizing:border-box; font-size:13.33px; min-height: 20px; ><content><content>1</content><content></content></content></td><td style= border: 0.5px solid; paddinpx; width:100px; min-width:100px; box-sizing:border-box; font-size:13.33px; min-height: 20px; >Gabapentin 300 Mg Capsule</td><td style= border: 0.5px solid; paddinpx; width:100px; min-width:100px; box-sizing:border-box; font-size:13.33px; min-height: 20px; >180</td><td style= border: 0.5px solid; paddinpx; width:100px; min-width:100px; box-sizing:border-box; font-size:13.33px; min-height: 20px; >30</td><td style= border: 0.5px solid; paddinpx; width:100px; min-width:100px; box-sizing:border-box; font-size:13.33px; min-height: 20px; ><content>Ho Gar</content></td><td style= border: 0.5px solid; paddinpx; width:100px; min-width:100px; box-sizing:border-box; font-size:13.33px; min- height: 20px; ><content>[id number]</content></td><td style= border: 0.5px solid; paddinpx; width:100px; min-width:100px; box-sizing:border-box; font-size:13.33px; min- height: 20px; ><content>[facility] (1877)</content></td><td style= border: 0.5px solid; paddinpx; width:100px; min-width:100px; box-sizing:border-box; font-size:13.33px; min- height: 20px; >0/2</td></tr></tbody></table>. Assessment: Plan: * Treatment: * Images: Billing Information: * Visit Code: * Procedure Codes: Care Plan Details* * Electronic signature of MIRTHA Feng on 07/03/2025 at 08:15 PM EDT Sign off status: Pending * Provider: AIDA MixHNP- Date: 0 02/01/2025 Generated for Richiei allegra/Faxing/eTransmitting on: 1 08:15 PM EDT History and Physical Notes * Examination Category Sub-Category Detail Notes Category Not es Psychiatry MassPat Review as appropriate 504/505/ 51Gabapentin 300 Mg [id number] (1877)0
--- OUTSIDE RECORDS SUMMARY | 2025-05-19 17:00 | XMS_ITS ---
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 Name Role Phone Milo Joshi Primary Care Provider [phone] Migration, Provider Unavailable Unavailable Allergies Allergen (clinical drug ingredient) Drug/Non Drug Allergy documented on EMR Reaction Allergy Type Onset Date Status amoxicillin Amoxicillin hives Drug Allergy Act perla REASON FOR VISIT [facility] To [facility] Conversion Encounter Medications Medication SIG (Take, [...] Male Encounters Encounter Location Date Provider Diagnosis [address] [address] 05/19/2025 Provider Migration Plan Of Treatment Next Appt Details Provider Name:Melanie Monge, 07/20/2025 09:00:00 AM, [address] [place] [address], [phone], Provider Name:Chela moseley, 07/23/2025 11:00:00 AM, [address] [place] [address], [phone], Progress Notes * Rey TRANDOB:[birth year] (40 yo M)Acc No.[id number]:05/19/2025 Patient: Rey THORNTON Provider: :1985 A ge:40 Y S ex:Male Date:05/19/2025 Address:[address] [place] [id number] Pcp:Milo Joshi Subjective: * Chief Complaints: * [facility] . [facility] * Medical History: * [...] Electronic signature of Prov ider Migration on 07/03/2025 at 08:16 PM EDT Sign off status: Pending * Provider: Date: 0 05/19/2025 Generated for Angélica dinh/Toni/Krystal on: 08:16 PM EDT
--- OUTSIDE RECORDS SUMMARY | 2025-06-28 07:41 | XMS_ITS ---
Author Organization [facility] Address [address] [place] [id number] Care Team Providers Care Staff Antisubmarine Officer Name Role Phone Milo Joshi Primary Care Provider [phone] Chela Torres Unavailable [phone] REASON FOR VISIT hosp f/u Social History Sex Assigned At : Social History Observation Description Sex Assigned At Male Encounters Encounter Location Date Provider Diagnosis [address] [phone] 06/28/2025 Chela Torres Plan Of Treatment Next Appt Details Provider Name:Melanie Monge, 07/20/2025 09:00:00 AM, [address] [place] [address], [phone], Provider Name:Chela moseley, 07/23/2025 11:00:00 AM, [address] [place] [address], [phone], Progress Notes * CHELSEA ReyDOB:[birth year] (40 yo M)Acc No.[id number]:06/28/2025 Patient: Rey THORNTON :1985 A ge:40 Y S ex:Male Address:[address] [place] [address], [phone] * true * Date: Generated for Richiei ng/Faxing/eTransmitting on: 08:16 PM EDT
[2025-07-03 16:43] VITALS: BP 160/84; PULSE 101; O2SAT 98
[2025-07-03 16:45] VITALS: BP 137/102; PULSE 98; RESP 18; TEMP -17.7; TEMP 0; O2SAT 96; BMI 28.5
--- NOTE | 2025-07-03 16:48 | PC.NURSE ---
Dr. Croft at bedside as patient requesting to leave. Security remains at bedside
--- NOTE | 2025-07-03 16:49 | ED_ITS ---
HPI - General Adult General Chief complaint: Overdose Stated complaint: OD 2 bags of Heroin 8mg of Narcan given by PD Time Seen by Provider: 07/03/25 16:43 History of Present Illness ED Provider: Adolfo LOMBARDO narrative: The patient is a 40-year-old male who says that he used heroin today. He says he injected heroin and he also snorted some heroin. He apparently passed out after using the heroin. He was with his girlfriend at the time and she called 911. The patient was given nasal naloxone by police and brought to the hospital. On arrival here the patient is awake and alert and is requesting discharge. The patient says that they never use heroin alone for just such a reason. The patient says that he has someone in the waiting room who can take him home at this point. He understands that he is at risk of passing out again if the naloxone wears off before whatever he used wears off. The patient says that he currently feels fine. He denies headache, chest pain, shortness of breath, abdominal pain, nausea, vomiting, or any other complaints. He would only like to leave. Related Data Previous Rx's ?Medication ?Instructions ?Recorded acetaminophen 325 mg tablet 650 mg (2 x 325 mg) PO Q6H PRN 06/27/25 Headache/Pain, Scale 1-10 #0 tabs albuterol sulfate 90 mcg/actuation 2 puff inhalation Q 4H PRN 06/27/25 aerosol inhaler Shortness Of Breath Or Wheez ing 30 days #1 inhaler aripiprazole 5 mg tablet (Abilify) 5 mg PO DAILY 30 da ys #30 tabs 06/27/25 atomoxetine 40 mg capsule 40 mg PO DAILY 30 days #30 c aps 06/27/25 bupropion HCl 300 mg 24 hr tablet, 300 mg PO DAILY 30 days #30 tabs 06/27/25 extended release capsaicin 0.075 % topical cream 1 appl topical TID PRN Knee pain 06/27/25 (Arthritis Pain Relief (capsaicin)) 30 days #60 grams gabapentin 300 mg capsule 600 mg (2 x 300 mg) PO TID 3 0 days 06/27/25 #180 caps guanfacine 1 mg tablet,extended 1 mg PO DAILY 30 days #30 tabs 06/27/25 release 24 hr hydroxyzine HCl 25 mg tablet 25 mg PO TID PRN mild anx iety 30 06/27/25 days #90 tabs ibuprofen 400 mg tablet 400 mg PO Q6H PRN Pain, 06/07 10/31 Moderate(Pain Scale 4-6) #0 tabs lidocaine 4 % topical patch 1 patch transdermal DAILY PRN 06/27/25 (Lidocaine Pain Relief) lower back pain 30 days #30 ea mirtazapine 15 mg tablet 15 mg PO BEDTIME 30 days #30 tabs 06/27/25 nicotine 21 mg/24 hr daily 21 mg transdermal DAILY PRN 06/27/25 transdermal patch smoking cessation 28 days #2 8 ea omeprazole 40 mg capsule,delayed 40 mg PO DAILY 30 day s #30 caps 06/27/25 release trazodone 50 mg tablet 50 mg PO BEDTIME PRN Insomni a 30 06/27/25 days #30 tabs chlorpromazine 50 mg tablet 50 mg PO TID PRN agitation 30 days 06/28/25 #90 tabs prazosin 2 mg capsule 2 mg PO BEDTIME 30 days #30 caps 06/28/25 Allergies Allergy/AdvReac Type Severity Reaction Status Date / Time amoxicillin (AMOXICILLIN) Allergy Unknown HIVES Verified 07/03/25 16:47 Review of Systems Review of Systems: Yes all other systems are reviewed and are negative PMFSH Past Medical History Medical History Anxious depression Suicide attempt Substance use disorder Depression Polysubstance use disorder Hypertension Bipolar 2 disorder, major depressive episode TBI (traumatic brain injury) PTSD (post-traumatic stress disorder) Surgical History History of mandibular surgery Family History Family History Other No pertinent family history Social History Social History Household Members: Other Household Members Other:: Lives at ex- sister's house. Housing: House Housing Other:: Sober house Do you presently have visiting nurse or other home services: No Alcohol intake: current Alcohol intake frequency: holidays/special occasions only Alcohol type: beer and hard liquor Comment: 1:1 in room Patient Tobacco Use Status: Current everyday Tobacco user Tobacco use type: Cigarette Cigarette Packs Per Day: 1.5 Cigarettes Per Day: 30.0 Years Smoked: 28 e-Cigarette/Vaping Use: Former Use Second Hand Smoke Exposure: Yes Substance Use Type: Crack/Cocaine, Heroin, IV Drugs and Other Advance Directives: No Advance Directives Information Provided: No service: No Sexual orientation: Straight/Heterosexual Physical Exam ED Vital Signs: Vital Signs - 24 hr 07/03/25 16:45 07/03/25 16:55 Temperature 0 F L 0 F L Pulse Rate 98 98 Respiratory Rate 18 18 Blood Pressure 137/102 H 137/102 H Pulse Oximetry 96 96 Oxygen Delivery Method Room Air Room Air BMI result Body Mass Index 28.5 Const Other: The patient is a well-developed 40-year-old male who does not appear acutely ill. He does not appear chronically ill. He was not in any distress. Orientation/consciousness: patient oriented x3 HENMT Other: The face is symmetrical. ?Mucous membranes moist. Eyes Other: Pupils are round equal, conjunctivae are clear, extraocular movements intact General: appearance normal, both eyes and all related structures Neck Neck: Yes normal visual inspection and Yes full ROM Resp Effort & Inspection: normal respiratory effort Auscultation: clear to auscultation bilaterally Cardio Rate: regular rate Rhythm: regular rhythm Heart sounds: S1 normal heart sound present and S2 normal heart sound present GI Other: Abdomen is soft and nontender Skin Other: The skin is dry and unremarkable Neuro General: patient oriented x3, gait normal, tone normal, moves all extremities, no focal motor deficits and CN's II-XI intact bilaterally Extrem Other: There is no calf swelling or tenderness. No asymmetry. No peripheral edema. Medical Decision Making Medical Decision Making MDM Narrative: The patient is a 40-year-old male who was brought to the hospital by ambulance after receiving naloxone from police. Apparently he had used heroin and had then become unresponsive. Here the patient is awake and alert with a normal mental status. He seems to have normal cognition. He was requesting discharge. I explained to the patient that he is potentially at risk of becoming unresponsive again if the naloxone does not last as long as whatever it was that he had taken. The patient understands this. He says that he has someone waiting for him in the emergency room who will drive him home and who will stay with him until it is clear he has well. Since the patient is exhibiting a completely clear mental status of the time and since he understands the danger of leaving the hospital and since he says that he has a ride home I think he may be discharged to follow up with his regular doctor. He is given a naloxone kit. Discharge Plan Discharge Clinical Impression: Opioid overdose Patient Disposition: Home, Self-Care Additional Instructions: Please be very careful with any opioid use in the future. Today, it is possible that you may be come very sleepy if the naloxone wears off before whatever you took wears off. Therefore please stay with someone to keep an eye on you with for the next several hours. Return to the emergency room if worse. Opiate use disorder You were seen in our Emergency Department today for treatment of opiate use disorder. You may have been dosed with medication for opiate use disorder (MOUD) in the form of suboxone or methadone. You may experience feeling some withdrawal symptoms and this is normal. The? dose in the Emergency Department is a starting dose and meant to be titrated up once you follow up with a clinic. Please do not feel discouraged, it is a process. The nurse has reviewed with you where to follow up and what information to bring with you, to continue treatment. You also may have been given naloxone (narcan) to take home with you. This medication is used to potentially treat opiate overdose. If you decide you want to stop or cut down on how much you?re using, you can call or walk into our outpatient Addiction Treatment office: [facility] (M-F 9am-5p) [address], [address] [phone] You may have been provided with safer injection?items, please take time to take care of YOU and your health. Use new supplies whenever possible to lessen the chances of infections and other illnesses.? ?If you need more supplies, please go [facility],? [address], [place] you can call or text to coordinate delivery of safer supplies. You were also provided a list of several treatment providers in the area.? If you experience any worsening symptoms you cannot control please return to the ED or call 911. Please follow up at your next appointment. Things to look out for are fevers, chest pain, shortness of breath, severe pain, dizziness, fainting or any other concerns. Prescriptions: No Action atomoxetine 40 mg capsule 40 mg PO DAILY 30 Days Qty: 30 0RF nicotine 21 mg/24 hr Patch 24 Hour 21 mg transdermal DAILY PRN (Reason: smoking cessation) 28 Days Qty: 28 0RF Rx Instructions: remove at bedtime guanfacine 1 mg Tablet Extended Release 24 Hr 1 mg PO DAILY 30 Days Qty: 30 0RF aripiprazole [Abilify] 5 mg Tablet 5 mg PO DAILY 30 Days Qty: 30 0RF bupropion HCl 300 mg Tablet Extended Release 24 Hr 300 mg PO DAILY 30 Days Qty: 30 0RF gabapentin 300 mg Capsule 600 mg PO TID 30 Days Qty: 180 0RF albuterol sulfate 90 mcg/actuation HFA aerosol inhaler 2 puff inhalation Q4H PRN (Reason: Shortness Of Breath Or Wheezing) 30 Days Qty: 1 0RF trazodone 50 mg Tablet 50 mg PO BEDTIME PRN (Reason: Insomnia) 30 Days Qty: 30 0RF lidocaine [Lidocaine Pain Relief] 4 % Adhesive Patch,Medicated 1 patch transdermal DAILY PRN (Reason: lower back pain) 30 Days Qty: 30 0RF Protocol: Apply to: Apply to: Back Rx Instructions: apply to lower back daily as needed capsaicin [Arthritis Pain Relief(capsaic)] 0.075 % Cream 1 appl topical TID PRN (Reason: Knee pain) 30 Days Qty: 60 0RF Protocol: Apply to: Apply to: knee acetaminophen 325 mg Tablet 650 mg PO Q6H PRN (Reason: Headache/Pain, Scale 1-10) Qty: 0 0RF ibuprofen 400 mg Tablet 400 mg PO Q6H PRN (Reason: Pain, Moderate(Pain Scale 4-6)) Qty: 0 0RF omeprazole 40 mg capsule,delayed release(DR/EC) 40 mg PO DAILY 30 Days Qty: 30 0RF hydroxyzine HCl 25 mg tablet 25 mg PO TID PRN (Reason: mild anxiety) 30 Days Qty: 90 0RF mirtazapine 15 mg tablet 15 mg PO BEDTIME 30 Days Qty: 30 0RF prazosin 2 mg capsule 2 mg PO BEDTIME 30 Days Qty: 30 0RF chlorpromazine 50 mg tablet 50 mg PO TID PRN (Reason: agitation) 30 Days Qty: 90 0RF Referrals: Milo Joshi MD [Physician, Medical] Interventions: ED Discharge Assessment Last Done: 07/03/25 16:55 Discharge Date/Time: 07/03/25 16:58 Print Language: Faroese
[2025-07-03 16:55] VITALS: BP 137/102; PULSE 98; RESP 18; TEMP -17.7; TEMP 0; O2SAT 96
--- OUTSIDE RECORDS SUMMARY | 2025-07-03 20:16 | XMS_ITS | Clinical Summary ---
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
--- OUTSIDE RECORDS SUMMARY | 2025-07-03 20:16 | XMS_ITS | Patient Health Record ---
Author Organization [facility] Address [address] [place] [address] Care Team Providers Care Real Estate Representative Name Role Phone Milo Joshi Primary Care Provider [phone] Melanie Monge Unavailable [phone] [facility], Nursing Unavailable [phone] Chela Torres Unavailable [phone] [facility], CHW Unavailable [phone] Casionan, Eddieliza Unavailable [phone] Migration, Provider Unavailable Unavailable Allergies Allergen (clinical [...] Referral Reason Spine an d Sport 7[address] [facility] patient with right lumbar radiuculitis who is s/p two spinal surgeries 10 years ago. Did reasonably well with epidurals and wants to avoid surgery Diagnosis 1 Radiculopathy, lumba r region (M54.16) Referral Organization [facility] Referring Provider First Name Milo Referring Provider Last Name Madelyn Referring Provider Speciality Internal M edicine Referred Organization [facility] Referred Provider Kuldeep Leo and S port Referred Address [address] [place] [address],[place], [id number], Referred Provider Specialty Physical Med icine and Rehabilitation General Notes Cass Kingsley 09/15/2024 02:49:56 PM > Faxed to [facility] in [facility], [id number] x 12 visits Clinical Notes Referral # [id number] D Referral Priority Routine Medications Medication SIG [...] review and pick correct strength-formulat ion from [employer] options. If intended option is not shown, [...] nts Hepatitis A IM Intramuscular 07/06/2018 Administered [facility] 5 [id number] Influenza IM Intramuscular 07/06/2018 Administered [facility] 49 [id number] Hepatitis B (20 or more) IM Intramuscular 09/22/2019 Administered Influenza IM Intramuscular 10/02/2019 Administered [place] 49 [id number] Influenza Unknown 05/29/2016 Administered Td Unknown 11/07/2008 [...] [phone] CHD Worker CSP x 3 months re ferral from [facility] Anirudh [phone] CHD Worker CSP x 3 months re ferral from [facility] Anirudh [phone] CHD Worker CSP x 3 months re ferral from [facility] Anirudh [phone] CHD Worker CSP x 3 months re ferral from [facility] Anirudh [phone] CHD Worker CSP x 3 months re ferral from [facility] Anirudh [phone] CHD Worker CSP x 3 months re ferral from [facility] Le[facility] Anirudh [phone] CHD Worker CSP x 3 months re ferral from [facility] Le[facility] Anirudh [phone] CHD Worker CSP x 3 months re ferral from [facility] Le[facility] Anirudh [phone] CHD Worker CSP x 3 months re ferral from [facility] Le[facility] Anirudh [phone] CHD Worker CSP x 3 months re ferral from [facility] Anirudh [phone] CHD Worker CSP x 3 months re ferral from [facility] Anirudh [phone] CHD Worker CSP x 3 months re ferral from [facility] Anirudh [phone] CHD Worker CSP x 3 months re ferral from [facility] Anirudh [phone] CHD Worker CSP x 3 months re ferral from [facility] Anirudh [phone] CHD Worker CSP x 3 months re ferral from [facility] Anirudh [phone] CHD Worker CSP x 3 months re ferral from [facility] Anirud[facility] [phone] CHD Worker CSP x 3 months re ferral from [facility] Anirud[facility] [phone] CHD Worker CSP x 3 months re ferral from [facility] Anirud[facility] [phone] CHD Worker CSP x 3 months re ferral from [facility] Anirudh [phone] CHD Worker CSP x 3 months re ferral from [facility] Anirudh [phone] CHD Worker CSP x 3 months re ferral from [facility] Anirud[facility] [phone] CHD Worker CSP x 3 months re ferral from [facility] Anirud[facility] [phone] CHD Worker CSP x 3 months re ferral from [facility]ir[facility] [phone] CHD Worker CSP x 3 months re ferral from [facility] Anirud[facility] [phone] CHD Worker CSP x 3 months re ferral from [facility] Anirud[facility] [phone] CHD Worker CSP x 3 months re ferral from [facility] [phone] CHD Worker CSP x 3 months re ferral from [facility]irud[facility] [phone] CHD Worker CSP x 3 months re ferral from [facility] [phone] CHD Worker CSP x 3 months re ferral from [facility] [phone] CHD Worker CSP x 3 months re ferral from [facility] [phone] CHD Worker CSP x 3 months re ferral from [facility] [phone] CHD Worker CSP x 3 months re ferral from [facility] [phone] CHD Worker CSP x 3 months re ferral from [facility] [phone] CHD Worker CSP x 3 months re ferral from [facility] [phone] CHD Worker CSP x 3 months re ferral from [facility] [phone] CHD Worker CSP x 3 months re ferral from [facility] [phone] CHD Worker CSP x 3 months re ferral from [facility] [phone] CHD Worker CSP x 3 months re ferral from [facility] [phone] CHD Worker CSP x 3 months re ferral from [facility] [phone] CHD Worker CSP x 3 months re ferral from [facility] [phone] CHD Worker CSP x 3 months re ferral from [facility] [phone] Problems Problem Type SNOMED Code ICD Code Onset Dates Problem Status W/U Status Risk Notes Problem Chronic hepatitis C (644966962) Chronic viral hepatitis C (B18.2) Active confirmed Problem Obesity (337235547) Obesity, unspecified (E66.9) Active confirmed Problem Alcohol abuse (41124348) Alcohol abuse, uncomplicated (F10.10) Active confirmed Problem Opioid abuse (3753831) Opioid abuse, uncomplicated (F11.10) Active confirmed Problem Tobacco user (633075945) Nicotine dependence, cigarettes, uncomplicated (F17.210) Active confirmed Problem Psychoactive substance abuse (53365515) Other psychoactive substance abuse, uncomplicated (F19.10) Active confirmed Problem Bipolar affective disorder, currently depressed, mild (279163501) Bipolar disorder, current episode depressed, mild (F31.31) Active confirmed Problem Bipolar affective disorder, currently depressed, moderate (353873597) Bipolar disorder, current episode depressed, moderate (F31.32) Active confirmed Problem Bipolar disorder (21784739) Bipolar disorder, unspecified (F31.9) Active confirmed Problem Anxiety disorder (942223138) Anxiety disorder, unspecified (F41.9) Active confirmed Problem Posttraumatic stress disorder (78743294) Post-traumatic stress disorder, chronic (F43.12) Active confirmed Problem Insomnia disorder related to another mental disorder (71581632) Insomnia due to other mental disorder (F51.05) Active confirmed Problem Essential hypertension (19258045) Essential (primary) hypertension (I10) Active confirmed Problem Uncomplicated moderate persistent asthma (837971203) Moderate persistent asthma, uncomplicated (J45.40) Active confirmed Problem Gastro-esophageal reflux disease without esophagitis (439444375) Gastro-esophagea l reflux disease without esophagitis (K21.9) Active confirmed Problem Lumbar radiculopathy (483313771) Radiculopathy, lumbar region (M54.16) Active confirmed Problem Nondependent cocaine abuse in remission (072459317) Cocaine abuse, in remission (F14.11) Active confirmed Problem Body mass index 35.00 to 39.99 (018006363542194) Body mass index [BMI] 37.0-37.9, adult (Z68.37) Active confirmed Problem Sheltered homelessness (571449950519455) Sheltered homelessness (Z59.01) Active confirmed Problem 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35) Inactive confirmed Problem Carpal tunnel syndrome (40388455) Carpal tunnel syndrome, bilateral upper limbs (G56.03) Inactive confirmed Vital Signs Temperature 97.1 degrees Fahrenheit 11/16/2024 Blood pressure diastolic 91 10/12/2024 Oximetry 96 09/14/2024 Height 72 in 11/16/2024 Blood pressure systolic 144 10/12/2024 Weight 278 lbs 09/14/2024 BMI 37.7 kg/m2 09/14/2024 Procedures Procedure Date Ordered Date Performed Result Body Sit e EKG 10/12/2024 10/12/2024 Normal Encounters Encounter Location Date Provider Diagnosis [id number] [place] [address] 05/19/2025 Provider Migration [facility] [address] [place], [place] [id number] 09/14/2024 Milo Joshi Chronic viral hepatitis C [...] Body mass index [BMI] 37.0-37.9, adult Z68.37 [facility] [address] [id number] 09/21/2024 [facility] Bipolar disorder, unspecified F31.9 [facility] [address] [place] [address] [place], [place] [id number] 10/04/2024 Melanie Monge Bipolar disorder, current episode depressed, moderate F31.32 ; Insomnia due to other mental disorder F51.05 ; Cocaine abuse, in remission F14.11 ; Anxiety disorder, unspecified F41.9 ; Post-traumatic stress disorder, chronic F43.12 and Opioid abuse, uncomplicated F11.[address] [address] 10/12/2024 Milo Joshi Encounter for screening for COVID-19 Z11.52 ; Cervicalgia M54.2 ; Obesity, unspecified E66.9 ; Sheltered homelessness Z59.01 ; Bipolar disorder, current episode depressed, mild F31.31 ; Essential (primary) hypertension I10 ; Concussion with loss of consciousness of unspecified duration, initial encounter S06.0X9A and Other psychoactive substance abuse, uncomplicated F19.10 [facility] [place] [id number] 11/14/2024 Milo Balder Chest pain, unspecified R07.9 and Disappearance and of family member Z63.4 [facility] [address] [id number] 11/16/2024 Nursing [facility] Encounter for screening, unspecified Z13.9 [facility] [address] [id number] 11/21/2024 [facility] [address] [place] [address] [place], [place] [id number] 11/24/2024 Melanie Monge Insomnia due to other mental disorder F51.05 ; Bipolar disorder, current episode depressed, moderate F31.32 ; Cocaine abuse, in remission F14.11 ; Anxiety disorder, unspecified F41.9 ; Post-traumatic stress disorder, chronic F43.12 ; Opioid abuse, uncomplicated F11.10 ; Disappearance and of family member Z63.4 and Encounter for screening for COVID-19 Z11.52 [facility] [address] [place] [address] SERVICES [place], [place] [id number] 12/21/2024 Edisongriselda Saleem Insomnia due to other mental disorder F51.05 ; Cocaine abuse, in remission F14.11 ; Bipolar disorder, current episode depressed, moderate F31.32 ; Anxiety disorder, unspecified F41.9 ; Post-traumatic stress disorder, chronic F43.12 ; Opioid abuse, uncomplicated F11.10 ; Disappearance and of family member Z63.4 and Encounter for screening for COVID-19 Z11.52 [facility] [address] [place] [id number] 07/14/2024 Iris Byrd [address] [address] 08/15/2024 Milo Joshi [address] [address] 09/14/2024 Milo Joshi [address] [address] 09/14/2024 Milo Joshi [address] [address] 09/14/2024 Milo Joshi [address] [address] 10/02/2024 Melanie Monge [address] [address] 10/05/2024 Milo Joshi Post-traumatic stress disorder, chronic F43.[address] [address] 10/12/2024 Milo Joshi [address] [address] 10/13/2024 Milo Joshi [address] [address] 11/16/2024 [facility] [address] [place] [id number] 11/16/2024 Milo [facility] [address] [place] [id number] 11/17/2024 Milo Joshi [address] [place] [address] 11/28/2024 Milo Joshi [address] [address] 12/21/2024 Milo Joshi [address] [address] 01/16/2025 Milo Joshi [address] [address] 02/07/2025 Milo Joshi [address] [address] 02/20/2025 Milo Joshi [address] [address] 04/06/2025 Milo Joshi [address] [address] 04/06/2025 Milo Joshi [address] [address] 04/24/2025 Milo Joshi [address] [address] 06/28/2025 Chela Torres Assessments Encounter Date Diagnosis [...] (ICD-10 - F31.9) Called [facility] in [place] due to pt's rceiving daily methadone dose through N they could not guarantee any respite beds. Called [facility] crisis they as well could not guarantee any beds locally but possily in [facility]. Having to report to [place] daily for methadone dosing would be challenging if pt was to be in a respite not in [place] or near [place] [facility] grape picker for transport. Pt agreeable to go to [facility] ED for psych eval and possible volunteer admission to inpatient psych. Discussed it was guaranteed to get dosed for methadone and to restart psych meds. During visit pt was able to eat breakfast provided by [facility] in RN's office. Transportation provided to pt to assist with getting to [facility] for crisis eval and possible inpatient admission, [...] to proceed with prescribed treatment. 1. Mass HUMANITIES TEACHER reviewed: see Exam 2. Medications: as above, received 1 week of refills from provider in [facility], will cont same doses and send 30 days 3. Cont psychotherapy: has appt 10/05/24 with Nusrat Torres [facility] 4. Labs/Procedures: has new lab orders [...] Noite for bed rest for next day [facility] will help 10/12/2024 Encounter for screening for [...] Pt had to leave to go to [facility] due to transport arriving. 11/24/2024 Insomnia due [...] to proceed with prescribed treatment. 1. Mass HUMANITIES TEACHER reviewed: see Exam 2. Medications: as above 3. Cont psychotherapy: has appt next week with Nusrat Conteh [facility]. 4. Labs/Procedures: no new labs for [...] to proceed with prescribed treatment. 1. Mass HUMANITIES TEACHER reviewed: see Exam 2. Medications: as above 3. Psychotherapy: sent TE to Elodia Torres [facility].\ that clt would like to re-engage [...] 09/14/2024 Sheltered homelessness (ICD-10 - Z59.01) In [facility] here, hopes for room 09/14/2024 Obesity, unspecified [...] vac cameron at pharmacy iunclkuding flu, Tdap, [id number] HEpB and COVID 10/04/2024 Other Time spent [...] Details Provider Name:Melanie Monge, 07/20/2025 09:00:00 AM, [address] [place] [address], [phone], Provider Name:Chela moseley, 07/23/2025 11:00:00 AM, [address] [place] [address], [phone], Insurance Providers Payer Name Payer Address Payer Phone Subscriber Number Group Number Insured Name Patient Relationship to Insured Coverage Start Date Coverage End Date [place] Medicaid C3 [address] [place], [place] [id number] [phone] [id number] Rey Abad Self - patient is the insured [place] [employer] [address] [place] [address] [id number] Rey Abad Self - patient is the [...] Reason Date(Month/Year) Sharlene Leroy 2023 Psych admit, [facility] 01/2024 Psych admit [facility] [place] [address] [facility] [place] [place] U/S reveals bake r's Cyst Rt knee F/U DR [facility] [phone] 05/22/2020 [facility] ?acalculous cholecystitis- referr ed to [facility] HIDA scan 12/21/18 [facility]dual [facility] admission 04/2018 numerous detox admissions
--- OUTSIDE RECORDS SUMMARY | 2025-07-03 20:16 | XMS_ITS | Clinical Summary ---
Author Organization [facility] Address [address] [place] [address] Phone Care Team Providers Care Ballast Cleaning Machine Operator Name Role Phone Physician, No Pcp Primary Care Provider Unavaila ble Allergies Active Allergy Reactions Criticality Noted Date Comments Penicillins Anaphylaxis High 05/30/2025 Encounters Date Type Department Care Team Description 05/30/2025 2:18 AM EDT - 05/30/2025 3:55 AM EDT Emergency [facility] Emergency [address] [place] [address] Jose Sierra MD Chest pain, [...] Impression: Normal right hip series. Telerad JACKELIN ([id number]) -------- FINAL REPORT -------- Dictated By: Laly Nelson Dictated Date: 05/30/2025 09:10 ET Assigned Physician: Laly Nelson Reviewed and Electronically Signed By: Laly Nelson Signed Date: 05/30/2025 09:11 ET Workstation ID: [id number] Transcribed By: Self Edit Transcribed Date: 05/30/2025 [...] Impression: Normal right hip series. Telerad PA ([id number]) -------- FINAL REPORT -------- Dictated By: Laly Nelson Dictated Date: 05/30/2025 09:10 ET Assigned Physician: Laly Nelson Reviewed and Electronically Signed By: Laly eNlson Signed Date: 05/30/2025 09:11 ET Workstation ID: [id number] Transcribed By: Self Edit Transcribed Date: 05/30/2025 09:10 ET Jose Sierra MD IMG XR PROCEDURES Final Re sult * XR Chest 2 Views (05/30/2025 2:35 AM EDT) Anatomical Region Laterality Modality Body Radiographic Charlene ging 05/30/2025 9:08 AM EDT Impressions 05/30/2025 9:10 AM EDT Impression: 1. Hyperinflated lungs. 2. Probable pleural scarring at the right base, unchanged from the previous study. Telerad PA ([id number]) -------- FINAL REPORT -------- Dictated By: Laly Nelson Dictated Date: 05/30/2025 09:08 ET Assigned Physician: Laly Nelson Reviewed and Electronically Signed By: Laly Nelson Signed Date: 05/30/2025 09:10 ET Workstation ID: [id number] Transcribed By: Self Edit Transcribed Date: 05/30/2025 [...] base, unchanged from theprevious study. Telerad PA ([id number]) -------- FINAL REPORT -------- Dictated By: Laly Nelson Dictated Date: 05/30/2025 09:08 ET Assigned Physician: Laly Nelson Reviewed and Electronically Signed By: Laly Nelson Signed Date: 05/30/2025 09:10 ET Workstation ID: [id number] Transcribed By: Self Edit Transcribed Date: 05/30/2025 09:08 ET Jose Sierra MD IMG XR PROCEDURES Final Re sult * ECG 12 lead (05/30/2025 2:14 AM EDT) [facility] Ventricular Rate ECG 70 BPM GEMUSE Atrial Rate 70 BPM GEMUSE P-R Interval 148 ms GEMUSE QRS Duration 92 ms GEMUSE Q-T Interval 400 ms GEMUSE QTc 432 ms GEMUSE P Wave [place] 23 degrees GEMUSE R [place] 32 degrees GEMUSE T [place] 49 degrees GEMUSE ECG Interpretation Normal sinus rhythm Normal ECG When compared with ECG of 26-SEP-2023 13:18, No significant change was found Confirmed by JILLIAN SANTOS ([id number]) on 05/31/2025 11:25:48 AM GEMUSE 05/30/2025 2:14 AM EDT 05/31/2025 11:25 AM EDT Jose Sierra MD ECG ORDERABLES Final Resu lt GEMUSE * Troponin I high sensitivity (05/30/2025 2:09 AM EDT) [facility] High Sensitivity Troponin I 8 <=79 ng/L LAB CHEMISTRY METHOD 05/30/2025 2:51 AM EDT [facility] Blood Venous blood specimen / Unknown Venipuncture / Unknown 05/30/2025 2:09 AM EDT 05/30/2025 2:12 AM EDT Narrative [facility] - 05/30/2025 2:51 AM EDT High levels of biotin in samples may falsely decrease hsTroponin values. Use caution when interpreting hsTroponin results in patients taking biotin who exhibit renal impairment (eGFR <60) or in patients taking more than 20 mg/day of biotin. us Jose Sierra MD LAB BLOOD ORDERABLES Final Result [facility] [address] [place] [address], * (ABNORMAL) CBC auto differential (05/30/2025 2:09 AM EDT) WBC 6.7 4.8 - 10.8 K/mcL LAB HEMETOLOGY METHOD 05/30/2025 2:50 AM EDT [facility] RBC 3.70(L) 4.50 - 5.50 M/mcL LAB HEMETOLOGY METHOD 05/30/2025 2:50 AM EDT [facility] Hemoglobin 11.4(L) 13.5 - 17.5 g/dL LAB HEMETOLOGY METHOD 05/30/2025 2:50 AM EDT [facility] Hematocrit 33.5(L) 42.0 - 54.0 % LAB HEMETOLOGY METHOD 05/30/2025 2:50 AM EDT [facility] MCV 89.8 79.0 - 98.0 FL LAB HEMETOLOGY METHOD 05/30/2025 2:50 AM EDT [facility] MCH 30.6 27.0 - 32.0 pcg LAB HEMETOLOGY METHOD 05/30/2025 2:50 AM [facility] MCHC 34.0 32.0 - 37.0 g/dL LAB HEMETOLOGY METHOD 05/30/2025 2:50 AM [facility] RDW 13.1 11.0 - 15.0 % LAB HEMETOLOGY METHOD 05/30/2025 2:50 AM [facility] Platelets 381 130 - 400 K/mcL LAB HEMETOLOGY METHOD 05/30/2025 2:50 AM [facility] MPV 9.7 7.0 - 11.0 FL LAB HEMETOLOGY METHOD 05/30/2025 2:50 AM [facility] NRBC 0.0 <1.0 % LAB HEMETOLOGY METHOD 05/30/2025 2:50 AM [facility] NRBC Absolute 0.00 <0.10 K/mcL LAB HEMETOLOGY METHOD 05/30/2025 2:50 AM [facility] Neutrophils Relative 66.2 % LAB HEMETOLOGY METHOD 05/30/2025 2:50 AM [facility] Lymphocytes Relative 24.9 % LAB HEMETOLOGY METHOD 05/30/2025 2:50 AM [facility] Monocytes Relative 7.1 % LAB HEMETOLOGY METHOD 05/30/2025 2:50 AM [facility] Eosinophils Relative 1.3 % LAB HEMETOLOGY METHOD 05/30/2025 2:50 AM [facility] Basophils Relative 0.4 % LAB HEMETOLOGY METHOD 05/30/2025 2:50 AM [facility] Immature Granulocytes Relative 0.1 % LAB HEMETOLOGY METHOD 05/30/2025 2:50 AM [facility] Neutrophils Absolute 4.45 1.50 - 7.00 K/mcL LAB HEMETOLOGY METHOD 05/30/2025 2:50 AM EDT [facility] Lymphocytes Absolute 1.68 1.00 - 5.00 K/mcL LAB HEMETOLOGY METHOD 05/30/2025 2:50 AM EDT [facility] Monocytes Absolute 0.48 0.20 - 1.00 K/mcL LAB HEMETOLOGY METHOD 05/30/2025 2:50 AM EDT [facility] Eosinophils Absolute 0.09 0.00 - 0.50 K/mcL LAB HEMETOLOGY METHOD 05/30/2025 2:50 AM EDT [facility] Basophils Absolute 0.03 0.00 - 0.20 K/mcL LAB HEMETOLOGY METHOD 05/30/2025 2:50 AM EDT [facility] Immature Granulocytes Absolute 0.01 0.00 - 0.03 K/mcL LAB HEMETOLOGY METHOD 05/30/2025 2:50 AM EDT [facility] Blood Venous blood specimen / Unknown Venipuncture / Unknown 05/30/2025 2:09 AM EDT 05/30/2025 2:12 AM EDT Jose Sierra MD LAB BLOOD ORDERABLES Final Result [facility] [address] [place] [address], * (ABNORMAL) Basic metabolic panel (05/30/2025 2:09 AM EDT) Sodium 136 133 - 145 mmol/L LAB CHEMISTRY METHOD 05/30/2025 2:48 AM EDT [facility] Potassium 3.7 3.5 - 5.5 mmol/L LAB CHEMISTRY METHOD 05/30/2025 2:48 AM T [facility] Chloride 104 96 - 110 mmol/L LAB CHEMISTRY METHOD 05/30/2025 2:48 AM EDT [facility] CO2 26 21 - 32 mmol/L LAB CHEMISTRY METHOD 05/30/2025 2:48 AM T [facility] Anion Gap 6 3 - 11 LAB CHEMISTRY METHOD 05/30/2025 2:48 AM [facility] Glucose 106(H) 70 - 100 mg/dL LAB CHEMISTRY METHOD 05/30/2025 2:48 AM [facility] BUN 7 5 - 25 mg/dL LAB CHEMISTRY METHOD 05/30/2025 2:48 AM [facility] Creatinine 0.80 0.70 - 1.30 mg/dL LAB CHEMISTRY METHOD 05/30/2025 2:48 AM [facility] eGFR 114 >=60 mL/min/1. 73m2 LAB CHEMISTRY METHOD 05/30/2025 2:48 AM [facility] Comment:Calculation based on the Chronic Kidney Disease Epidemiology Collaboration (CKD-EPI) equation refit without adjustment for race. BUN/Creatinine Ratio 8.8 LAB CHEMISTRY METHOD 05/30/2025 2:48 AM [facility] Calcium 9.2 8.5 - 10.5 mg/dL LAB CHEMISTRY METHOD 05/30/2025 2:48 AM [facility] Blood Venous blood specimen / Unknown Venipuncture / Unknown 05/30/2025 2:09 AM EDT 05/30/2025 2:12 AM EDT Jose Sierra MD LAB BLOOD ORDERABLES Final Result [facility] [address] [place] [address], * ECG-Annotated (05/30/2025) us Provider Onbase ECG ORDERABLES Final Result from Last 3 Months Insurance MEDICAID - [place] Care Teams Ballast Cleaning Machine Operator Relationship Specialty Start Date End Date Physician, No Pcp PCP - General 05/30/25
== END 2025-07-03 16:58 | disposition home or self-care (01) ==
PROVIDERS: Emergency Provider Emergency Medicine
DX: T40.1X1A Poisoning by heroin, accidental (unintentional), initial encounter (principal); Y92.89 Other specified places as the place of occurrence of the external cause; F31.81 Bipolar II disorder; F43.10 Post-traumatic stress disorder, unspecified; I10 Essential (primary) hypertension; Z72.0 Tobacco use
CPT/HCPCS: 99282

== ENCOUNTER 2025-07-17 19:47 | Emergency (ER) | payer MEDICAID, SELFPAY ==
--- NOTE | ~2025-07-17 | XR_ITS ---
CLINICAL HISTORY: pain, swelling RIGHT KNEE X-RAYS COMPARISON: None provided. FINDINGS: A total of 4 views of the right knee were obtained. No evidence of an acute fracture or dislocation involving the right knee. There are mild tricompartmental degenerative changes. A tiny suprapatellar effusion is suspected. No aggressive lytic lesion or aggressive periosteal reaction. No metallic foreign body. IMPRESSION: 1. No acute fracture or dislocation. 2. Mild tricompartmental degenerative changes. Tiny suprapatellar effusion is suspected. This document has been electronically signed by: Sj Hess M.D. on 07/18/2025 00:23:21
--- NOTE | 2025-07-17 19:51 | ED_ITS ---
HPI - Psych General Chief Complaint: Psychiatric Symptoms Stated Complaint: Crisis Time Seen by Provider: 07/17/25 21:15 Source: patient, RN notes reviewed and old records reviewed Mode of arrival: ambulatory Limitations: altered mental status History of Present Illness ED Provider: Dr. Greer Peter HPI Narrative: 40-year-old male with a history of bipolar disorder, PTSD, TBI, polysubstance use disorder and depression presenting with right knee pain that is been ongoing for the last several months. He was diagnosed with a Bishop's cyst at some point and feels that the pain has been worsening. Pain is worse with ambulation. He uses a walker to get around at baseline. Denies weakness of the leg. No reported fevers. He does have a rash on the LLE around the ankle. Was given a prescription for an antibiotic (doesn't know which one) but has not picked it up from the pharmacy He was recently discharged from a psychiatric facility and has been intermittently using heroin/fentanyl as well as cocaine. States he has been hopeless and helpless with continued knee pain. Feels he is at his wits end and cannot tolerate it anymore. Has been using cocaine, fentanyl and heroin. Sometimes snorts it, sometimes injects. Denies SI or a plan for suicide. During our discussion, he is intermittently falling asleep and agitated. Related Data Previous Rx's ?Medication ?Instructions ?Recorded aripiprazole 5 mg tablet (Abilify) 5 mg PO DAILY 30 da ys #30 tabs 06/27/25 gabapentin 300 mg capsule 600 mg (2 x 300 mg) PO TID 3 0 days 06/27/25 #180 caps hydroxyzine HCl 25 mg tablet 25 mg PO TID PRN mild anx iety 30 06/27/25 days #90 tabs nicotine 21 mg/24 hr daily 21 mg transdermal DAILY PRN 06/27/25 transdermal patch smoking cessation 28 days #2 8 ea trazodone 50 mg tablet 50 mg PO BEDTIME PRN Insomni a 30 06/27/25 days #30 tabs prazosin 2 mg capsule 2 mg PO BEDTIME 30 days #30 caps 06/28/25 Allergies Allergy/AdvReac Type Severity Reaction Status Date / Time amoxicillin (AMOXICILLIN) Allergy Unknown HIVES Verified 07/17/25 19:59 Review of Systems 2 Review of Systems: as per HPI, full review of systems performed and negative but for the above mentioned pertinent positives and negatives. [facility] Past Medical History Medical History Anxious depression Suicide attempt Substance use disorder Depression Polysubstance use disorder Hypertension Bipolar 2 disorder, major depressive episode TBI (traumatic brain injury) PTSD (post-traumatic stress disorder) Surgical History History of mandibular surgery Family History Family History Other No pertinent family history Social History Social History Household Members: Other Household Members Other:: Lives at ex- sister's house. Housing: House Housing Other:: Sober house Do you presently have visiting nurse or other home services: No Alcohol intake: current Alcohol intake frequency: holidays/special occasions only Alcohol type: beer and hard liquor Comment: 1:1 in room Patient Tobacco Use Status: Current everyday Tobacco user Tobacco use type: Cigarette Cigarette Packs Per Day: 1.5 Cigarettes Per Day: 30.0 Years Smoked: 28 e-Cigarette/Vaping Use: Former Use Second Hand Smoke Exposure: Yes Substance Use Type: Crack/Cocaine, Heroin, IV Drugs and Other Advance Directives: No Advance Directives Information Provided: No service: No Sexual orientation: Straight/Heterosexual Physical Exam 2 Exam: Exam: GENERAL: Appears intoxicated, GCS 13, eyes open to voice, slurred speech, no acute distress. SKIN: Normal skin color for ethnicity, warm, dry, cellulitic changes overlying the anterior ankle on the left, no crepitus, no blistering, no petechiae, no fluctuance. HEENT: Normocephalic, atraumatic, no stridor, posterior oropharynx nonerythematous, poor nondalton dentition, EOMI, pupils are pinpoint bilaterally, reactive to light. NECK: Soft, supple, no step-offs, no deformities, no lymphadenopathy. CHEST: Heart regular rhythm, no murmurs, symmetric chest rise and fall. PULMONARY: Clear to auscultation bilaterally, diminished at the bases, no labored breathing, no wheezes/rhales/rhonchi. ABDOMINAL: Soft, nondistended, positive bowel sounds in all quadrants. : Deferred. MUSCULOSKELETAL: Normal tone, full range of motion, no deformities, no peripheral edema, TTP over the lateral aspect of the R knee, no overlying skin changes, no erythema. NEURO: GCS 13, eyes open to voice, slightly slurred speech, CN II through XII intact, equal strength and sensation bilateral upper and lower extremities, no focal neurologic deficits. PSYCHIATRIC: Flat affect, poor eye contact. Vital Signs: Vital Signs: Last Vital Signs Temp 98.2 F 07/18/25 20:24 Pulse 67 07/18/25 20:24 Resp 18 07/18/25 20:24 BP 130/82 07/18/25 20:24 Pulse Ox 98 07/18/25 20:24 O2 Del Method Room Air 07/18/25 20:24 BMI result Body Mass Index 31.0 Course Course Course Narrative: This is a rapid medical exam performed by Fritz Monroe NP: Additional HPI, ROS, PE not included below will be deferred to primary provider. Patient is a 40y/o M with pmhx AUD, polysubstance abuse, Bipolar 2 disorder, TBI, PTSD presenting to the ED with complaint of severe right knee pain in the setting of known Bishop's cyst. Expressing frustration that no one is doing anything about it. Lost his psych meds, hasn't slept in 4 days, hopeless. Discharged from inpatient psych unit here on 06/27. Denies SI/HI but states I don't care if I live or right now, I'm barely holding it together. Falling asleep/forward in triage chair. Plan: med clearance, then CARE team eval Reevaluation(s) Reevaluation #1: Time: 08:29 Date: 07/18/25 Provider: James Birch, DO Patient in physician observation for psychiatric evaluation.? No acute events reported overnight. No current complaints. VS stable.? IPLOC. Will continue to monitor. 3:58 PM 07/18/2025 (Dr. James Birch): At 21:00 today patient will be going to [facility] Reevaluation #2: 9:13 PM 07/18/2025 (Dr. Jass Colbert): I was notified at this time that the patient was set for transfer to outside psychiatric facility however insurance issues canceled the evening ambulance. The patient is set to go tomorrow. Reevaluation #3: Time: 07:05 Date: 07/19/25 Provider: Puma Christianson MD Patient in physician observation for psychiatric evaluation.? No acute events reported overnight. No current complaints. VS stable.? Patient is in bed search status/pending CARE team evaluation. Will continue to monitor. Medications Administered Generic Name Dose Route Start Last Admin Trade Name Freq PRN Reason Stop Dose Admin Aripiprazole 5 mg 07/18/25 09:45 07/18/25 09:44 Aripiprazole 5 Mg Tablet PO 5 mg DAILY PEDRO Administration Gabapentin 600 mg 07/18/25 09:45 07/18/25 20:24 Gabapentin 300 Mg Capsule PO 600 mg TID PEDRO Administration Hydroxyzine HCl 25 mg 07/18/25 09:28 07/18/25 20:24 Hydroxyzine Hcl 25 Mg Tablet PO 25 mg TID PRN Administration mild anxiety Prazosin HCl 2 mg 07/18/25 21:00 07/18/25 20:24 Prazosin Hcl 1 Mg Capsule PO 2 mg BEDTIME PEDRO Administration Protocol Discontinued Medications Generic Name Dose Route Start Last Admin Trade Name Freq PRN Reason Stop Dose Admin Doxycycline Monohydrate 100 mg 07/18/25 07:15 07/18/25 09:44 Doxycycline Monohydrate 100 Mg Capsule PO 07/18/25 07:16 100 mg ONCE ONE Administration Medical Decision Making Medical Decision Making MDM Narrative: Patient presents with psychologic complaints. Differential diagnosis includes suicidal ideations, homicidal ideations, depression, anxiety, mood disorder, decompensated mental illnesses such as schizophrenia or bipolar disorder, medication noncompliance, among many others. Medical clearance protocol was initiated. Patient complaining of right knee pain that is chronic in nature. He walks around with a walker at baseline. That being said, I did brought in his workup a little bit to include CRP, CPK and sed rate. He has a slightly elevated white blood cell count but he has evidence of cellulitis on the left ankle as well. All in all, I do believe that he is more of an inflammatory process in the knee. Bedside ultrasound does not show significant pocket of fluid collection to obtain arthrocentesis. X-ray shows osteoarthritis of the knee joint. He is ambulatory in the emergency room, afebrile, overall low suspicion for septic joint. I discussed this with the patient at length. His last IV drug use was reportedly couple of weeks ago though this information is pretty unreliable. That being said, he is high risk. We will continue to monitor closely and if he develops a fever, have a low threshold to attempt knee aspiration if there is a fluid collection. Patient was medicated with doxycycline for his ankle cellulitis. Differential Diagnosis Differential Diagnoses: The differential diagnosis associated with the presentation includes (As above) Admission/Observation Consideration of admission/observation: Escalation of care including admission/observation considered Consult Healthcare Provider Management of the patient was discussed with: [facility] Provider Lab Data MDM Lab Attestation statement: I reviewed the patient's lab results. 07/17/25 20:17 07/17/25 20:17 Labs: Lab Results 07/17/25 07/17/25 Range/Units 20:17 21:05 WBC 11.6 H (4.8-10.8) X10*3/uL RBC 4.09 L (4.60-5.80) X10*6/uL Hgb 12.9 L (14.0-18.0) g/dl Hct 37.2 L (42.0-52.0) % MCV 91.0 (80.0-98.0) fL MCH 31.5 (27.0-33.0) pg MCHC 34.7 (31.0-36.0) g/dl RDW 12.7 (11.0-16.0) % Plt Count 350 (160-400) X10*3/uL MPV 9.1 L (9.4-12.4) fL Immature Gran % (Auto) 0.3 (0.0-0.4) % Neut % (Auto) 81.2 H (45-73) % Lymph % (Auto) 11.0 L (20-40) % Cowley % (Auto) 5.0 (2-11) % Eos % (Auto) 2.2 (0-4) % Baso % (Auto) 0.3 (0-2) % Lymph # (Auto) 1.3 (1.2-4.9) X10*3/uL Cowley # (Auto) 0.6 (0.1-1.2) X10*3/uL Eos # (Auto) 0.3 (0.0-0.4) X10*3/uL Baso # (Auto) 0.0 (0.0-0.2) X10*3/uL Abs Immat Gran (auto) 0.04 H (0.00-0.03) X10*3/uL Absolute Neuts (auto) 9.4 H (2.0-8.3) x10*3/uL Absolute Nucleated RBC 0.000 (0.0-0.012) X10*3/uL Nucleated RBC % (auto) 0.0 (0.0-0.2) /100WBC ESR 35 H (0-15) MM/HR Sodium 138 (135-145) mmol/L Potassium 3.8 (3.3-5.1) mmol/L Chloride 106 (96-108) mmol/L Carbon Dioxide 24 (22-29) mmol/L Anion Gap 12 (12-20) BUN 14 (9-16) mg/dL Creatinine 0.84 (0.5-1.4) mg/dL Estim Creat Clear Calc 144.1 Estimated GFR > 60 Random Glucose 101 (60-115) mg/dL Calcium 9.3 (8.4-10.2) mg/dL Total Bilirubin 0.4 (0.0-1.0) mg/dL AST 58 H (5-37) U/L ALT 67 H (0-40) U/L Alkaline Phosphatase 94 (39-117) U/L Total Creatine Kinase 249 H (38-174) U/L C-Reactive Protein 2.02 H (< or = 0.50) mg/dL Total Protein 7.8 (6.5-8.0) g/dL Albumin 4.2 (3.5-5.0) g/dL Urine Color Dark Yellow Urine Appearance Cloudy Urine pH 5.5 (5.0-9.0) Ur Specific [place] >= 1.030 H (1.005-1.025) Urine Protein Trace (Neg-Trace) mg/dL Urine Glucose (UA) Negative (Negative) mg/dL Urine Ketones Trace (Negative) mg/dL Urine Blood Negative (Negative) Urine Nitrite Negative (Negative) Ur Leukocyte Esterase Negative (Negative) Urine Opiates Screen POSITIVE H (Not Detect) Ur Buprenorphine Scrn Not Detected (Not Detect) ng/mL Ur Oxycodone Screen Not Detected (Not Detect) ng/mL Urine Methadone Screen Positive H (Not Detect) ng/mL Urine Fentanyl Screen POSITIVE H (Not Detect) Ur Barbiturates Screen Not Detected (Not Detect) Ur Phencyclidine Scrn Not Detected (Not Detect) Ur Amphetamines Screen Not Detected (Not Detect) U Benzodiazepines Scrn Not Detected (Not Detect) Urine Cocaine Screen POSITIVE H (Not Detect) U Marijuana (THC) Screen POSITIVE H (Not Detect) Ethyl Alcohol 26 mg/dL Influenza Type A (PCR) NEGATIVE (Negative) Influenza Type B (PCR) NEGATIVE (Negative) RSV RNA Qual (PCR) NEGATIVE (Negative) SARS-CoV-2 RNA (RT-PCR) NEGATIVE (Negative) Independent Interpretation I performed an independent interpretation of an: Plain X-Ray Interpretation: No significant joint effusion, no bony abnormality, arthritic changes Radiology Impression Discussion of test interpretation with radiology: I have reviewed the radiologist's reading. Discharge Plan Discharge Clinical Impression: Polysubstance abuse, Housing insecurity, Hopelessness, Other specified arthritis, right knee, Cellulitis of left ankle Patient Disposition: Xfer Psychiatric Hosp Transfer Details: Direct to inpatient at [facility]. Section [address] Rodriges is accepting Instructions: Bipolar Disorder (ED) Prescriptions: No Action nicotine 21 mg/24 hr Patch 24 Hour 21 mg transdermal DAILY PRN (Reason: smoking cessation) 28 Days Qty: 28 0RF Rx Instructions: remove at bedtime aripiprazole [Abilify] 5 mg Tablet 5 mg PO DAILY 30 Days Qty: 30 0RF gabapentin 300 mg Capsule 600 mg PO TID 30 Days Qty: 180 0RF trazodone 50 mg Tablet 50 mg PO BEDTIME PRN (Reason: Insomnia) 30 Days Qty: 30 0RF hydroxyzine HCl 25 mg tablet 25 mg PO TID PRN (Reason: mild anxiety) 30 Days Qty: 90 0RF prazosin 2 mg capsule 2 mg PO BEDTIME 30 Days Qty: 30 0RF Interventions: Sargent-Suicide Risk Severity Scale Last Done: 07/18/25 20:02 Print Language: Welsh
[2025-07-17 19:54] VITALS: BP 144/88; PULSE 93; RESP 20; TEMP 36.9; O2SAT 98; BMI 31.0
[2025-07-17 20:29] LABS: MANUAL DIFF FLAG NO
[2025-07-17 20:33] LABS: Hematocrit 37.2 % (42.0-52.0); Hemoglobin 12.9 g/dl (14.0-18.0); Imm Gran Abs Auto 0.04 X10*3/uL (0.00-0.03); Imm Gran Pct Auto 0.3 % (0.0-0.4); Lymphocytes Absolute Auto 1.3 X10*3/uL (1.2-4.9); Mean Corpuscular HGB Conc 34.7 g/dl (31.0-36.0); Mean Corpuscular Hemoglobin 31.5 pg (27.0-33.0); Mean Corpuscular Volume 91.0 fL (80.0-98.0); NRBC Abs Auto 0.000 X10*3/uL (0.0-0.012); NRBC Pct Auto 0.0 /100WBC (0.0-0.2); Platelet Count 350 X10*3/uL (160-400); Red Blood Count 4.09 X10*6/uL (4.60-5.80); White Blood Count 11.6 X10*3/uL (4.8-10.8)
[2025-07-17 20:43] LABS: Alanine Aminotransferase 67 U/L (0-40); Albumin Level 4.2 g/dL (3.5-5.0); Alkaline Phosphatase 94 U/L (39-117); Anion Gap 12 (12-20); Aspartate Amino Transferase 58 U/L (5-37); Blood Urea Nitrogen 14 mg/dL (9-16); Calcium 9.3 mg/dL (8.4-10.2); Carbon Dioxide 24 mmol/L (22-29); Chloride 106 mmol/L (96-108); Creatinine Clr Calc Pharmacy 144.1; Estimated Glomerular Filt Rate > 60; Potassium 3.8 mmol/L (3.3-5.1); Sodium 138 mmol/L (135-145); Total Protein 7.8 g/dL (6.5-8.0)
--- NOTE | 2025-07-17 20:46 | PC.NURSE ---
Addendum entered by Tamara Sanchez RN 07/18/25 03:29: nurse o nurse report called to [place] YATES in the pod. Walked over pt to the pod with security Addendum entered by Tamara Sanchez RN 07/17/25 23:28: pt noted to be limping due to right knee pain, pt states he has walking stick, stick was placed in decon for pt when d/c. pt using walker to ambulate at this time. Original Note: pt caox3 able to ambulate with steady gait and make his needs known. pt calm and cooperative, changed over by EDT and security, belongings secured in [facility]
[2025-07-17 21:09] LABS: Resp Syncy Virus RNA Qual PCR NEGATIVE (Negative); SARS COV2 PCR INHOUSE NEGATIVE (Negative)
[2025-07-17 21:16] LABS: Appearance Urine Cloudy; Glucose Urine UA Negative (Negative); PH 5.5 (5.0-9.0); Specific Gravity - Urine >= 1.030 (1.005-1.025)
[2025-07-17 21:26] LABS: Cannabinoid Screen Urine POSITIVE (Not Detect)
[2025-07-17 23:26] VITALS: PULSE 96; O2SAT 95
[2025-07-17 23:44] LABS: Erythrocyte Sedimentation Rate 35 MM/HR (0-15)
[2025-07-18] VITALS: BP 123/73; PULSE 90; RESP 16; TEMP 37; O2SAT 95
[2025-07-18 01:15] VITALS: BP 114/63; PULSE 83; RESP 19; TEMP 36.8; O2SAT 96
--- NOTE | 2025-07-18 03:33 | PC.NURSE ---
pt ambulated into POD with security via walker, half way into POD pt stopped using the walker, stating he feels fine and doesn't want to use it. pt ambulated with a limb into room.
--- NOTE | 2025-07-18 07:48 | PC.NURSE ---
Assumed care, report received. Pt is currently sleeping, breakfast is provided.
--- NOTE | 2025-07-18 09:11 | ECG_ITS ---
Test Reason : CHECK FOR QTC Blood Pressure : */* mmHG Vent. Rate : 68 BPM Atrial Rate : 68 BPM P-R Int : 144 ms QRS Dur : 90 ms QT Int : 394 ms P-R-T Axes : 31 44 65 degrees QTcB Int : 418 ms Normal sinus rhythm Normal ECG When compared with ECG of 30-Jun-2025 01:34, Vent. rate has decreased by 36 bpm Referred By: James Birch Electronically Signed By: KATIE ULLOA MD
--- NOTE | 2025-07-18 09:20 | MHC.CARE ---
T/W spoke with Pt regarding placement at a dual dx facility. Pt stated he has been to [facility] as well as [facility] and they all suck. Pt not agreeable to dual placement however is agreeable to placement on M3 or M5. RAD team notified.
--- NOTE | 2025-07-18 09:51 | MHC.CARE ---
Pt has now been placed on Section 12a and will ADULT IPLOC as he declined DUAL DX.
[2025-07-18 14:05] VITALS: BP 146/81; PULSE 62; RESP 14; TEMP 36.6; O2SAT 97
--- NOTE | 2025-07-18 14:22 | PC.NURSE ---
Pt is currently calm and cooperative. he is in agreement with the POC
--- NOTE | 2025-07-18 14:57 | MHC.CARE ---
He has been accepted to [facility], located @ [address] [place] [address] ETA 9PM, accepting Dr Hernandez. N2N is not needed. F31.81 Bipolar II D/o F43.10 PTSD F14.10 Cocaine abuse
[2025-07-18 20:24] VITALS: BP 130/82; PULSE 67; RESP 18; TEMP 36.8; O2SAT 98
--- NOTE | 2025-07-18 20:30 | PC.NURSE ---
Assumed care at 1845. Presents as calm and cooperative. Medicated per NOV. Utilized PRN 25mg Vistaril for anxiety r/t pending discharge. Requested drinks/snacks. Will continue to monitor for safety.
--- NOTE | 2025-07-18 22:17 | MHC.CARE ---
Per [facility], pt transport to [facility] was cancelled. Pt accepted to [facility] for tomorrow 07/19. ETA: 11am Accepting is Dr. Hernandez.
--- NOTE | 2025-07-18 22:35 | PC.NURSE ---
Patient is aware/agreeable of plan to discharge tomorrow AM @11am.
[2025-07-19 07:06] VITALS: BP 163/94; PULSE 92; RESP 14; TEMP 36.3; O2SAT 96
--- NOTE | 2025-07-19 07:15 | PC.NURSE ---
Assumed care of patient at 0645, patient appears to be in no apparent distress this am, calm and cooperative, requesting additional coffee. Pt aware of plan of care for transfer to [facility] at 11am today
[2025-07-19 11:43] VITALS: BP 151/92; PULSE 87; RESP 16; TEMP 36.3; O2SAT 98
== END 2025-07-19 11:47 ==
PROVIDERS: Registered Nurse Emergency; Emergency Provider Emergency Medicine; PCP Internal Medicine
DX: F11.10 Opioid abuse, uncomplicated (principal); F14.10 Cocaine abuse, uncomplicated; M13.861 Other specified arthritis, right knee; L03.116 Cellulitis of left lower limb; F43.10 Post-traumatic stress disorder, unspecified; F31.81 Bipolar II disorder; Z59.9 Problem related to housing and economic circumstances, unspecified
CPT/HCPCS: 73564; 80053; 80307; 81003; 82550; 85025; 85652; 86140; 87637; 93005; 99285; S9485

== ENCOUNTER → 2025-07-17 22:50 | Outpatient (BNV) | payer MEDICAID, SELFPAY | PROVIDERS: Emergency Provider Emergency Medicine; PCP Internal Medicine; Visit Provider Radiology Diagnostic Radiology | DX: M17.11 Unilateral primary osteoarthritis, right knee (principal) | CPT/HCPCS: 73564 ==

== ENCOUNTER → 2025-07-18 09:11 | Outpatient (BNV) | payer MEDICAID, SELFPAY | PROVIDERS: Emergency Provider Emergency Medicine; PCP Internal Medicine; Visit Provider Internal Medicine Cardiovascular Disease | DX: Z13.6 Encounter for screening for cardiovascular disorders (principal) | CPT/HCPCS: 93010 ==

== ENCOUNTER 2025-08-19 12:21 | Inpatient (IN) | payer MEDICAID, SELFPAY ==
--- OUTSIDE RECORDS SUMMARY | 2025-05-19 16:00 | XMS_ITS ---
Author Organization [facility] Address [address] [place] [address] Care Team Providers Care Cost Consultant Name Role Phone Milo Joshi Primary Care Provider Migration, Provider Unavailable Unavailable Allergies Allergen (clinical drug ingredient) Drug/Non Drug Allergy documented on EMR Reaction Allergy Type Onset Date Status amoxicillin Amoxicillin hives Drug Allergy Act perla [facility] Conversion Encounter Medications Medication SIG (Take, Route, Frequency, Duration) Notes Start Date End Date Status hydrOXYzine HCl 50 MG 1 tab(s) orally 3 times a day as needed for anxiety for 30 days Active Acetaminophen 500 MG 2 tab(s) orally every 6 hours for 20 days 11/14/2024 Active Mirtazapine 7.5 MG 1 tab orally once a day at bedtime as needed for insomnia for 30 days Active LURASIDONE 20 MG 1 TAB(S) ORALLY TAKE ONCE A DAY IN EVENING WITH 350 CALORIES for 30 DAYS *Please review for potential replacement for e-prescription and drug interaction check* Active Phentermine HCl 15 MG 1 cap(s) orally once a day (in the morning) for 30 days 09/14/2024 Not-Taking Prazosin HCl 2 MG 1 cap(s) orally at bedtime for nightmares for 30 days Active Omeprazole 40 MG 1 cap(s) orally once a day for 30 days 02/07/2024 Active Methadone HCl 5 MG 80 mg orally daily Active Albuterol Sulfate HFA 108 (90 Base) MCG/ACT 2 puff(s) inhaled every 6 hours for 30 days 02/07/2024 Active Dulera 200-5 MCG/ACT 2 puff(s) inhaled 2 times a day for 30 days 02/07/2024 Active Gabapentin 300 MG 2 caps orally 3 times a day for 30 days Active chlorproMAZINE 10 MG 1 TAB(S) ORALLY 2 TIMES A DAY NEEDED FOR SEVERE ANXIETY, AGITATION, INSOMNIA for 30 DAYS *Please review and pick correct strength-formulat ion from Medispan options. If intended option is not shown, discontinue and re-order from Quick Search* Active Social History Sex Assigned At : Social History Observation Description Sex Assigned At Male Encounters Encounter Location Date Provider Diagnosis [address] [address] 05/19/2025 Provider Migration Plan Of Treatment Next Appt Details Provider Name:Milo Joshi, 10/09/2025 03:00:00 PM, [address] [place] [address], [phone], Progress Notes * Rey TRANDOB:[birth year] (40 yo M)Acc No.[id number]:05/19/2025 Patient: Rey THORNTON Provider: :1985 A ge:40 Y S ex:Male Date:05/19/2025 Address:[address] [place], [place] [id number] Pcp:Milo Joshi Subjective: * Chief Complaints: * 1 . [facility] To [facility] Conversion Encounter. * Medical History: * Medications: T aking LURASIDONE 20 MG TABLET 1 TAB(S) ORALLY TAKE ONCE A DAY IN EVENING WITH 350 CALORIES , Notes to Pharmacist: *Please review for potential replacement for e-prescription and drug interaction check*, Taking Mirtazapine 7.5 MG Tablet 1 tab orally once a day at bedtime as needed for insomnia , Taking hydrOXYzine HCl 50 MG Tablet 1 tab(s) orally 3 times a day as needed for anxiety , Taking Gabapentin 300 MG Capsule 2 caps orally 3 times a day , Taking chlorproMAZINE 10 MG TABLET 1 TAB(S) ORALLY 2 TIMES A DAY NEEDED FOR SEVERE ANXIETY, AGITATION, INSOMNIA , Notes to Pharmacist: *Please review and pick correct strength-formulation from Medispan options. If intended option is not shown, discontinue and re-order from Quick Search*, Taking Prazosin HCl 2 MG Capsule 1 cap(s) orally at bedtime for nightmares , Taking Methadone HCl 5 MG Tablet 80 mg orally daily , Taking Dulera 200-5 MCG/ACT Aerosol 2 puff(s) inhaled 2 times a day , Taking Albuterol Sulfate HFA 108 (90 Base) MCG/ACT Aerosol Solution 2 puff(s) inhaled every 6 hours , Taking Omeprazole 40 MG Capsule Delayed Release 1 cap(s) orally once a day , Taking Acetaminophen 500 MG Tablet 2 tab(s) orally every 6 hours , Not-Taking/PRN Phentermine HCl 15 MG Capsule 1 cap(s) orally once a day (in the morning) * Allergies: A moxicillin: hives. Objective: * Vitals: Assessment: Plan: * Treatment: * Images: Billing Information: * Visit Code: * Procedure Codes: * Electronic signature of Prov ider Migration on 08/19/2025 at 01:37 PM EST Sign off status: Pending * Provider: Date: 0 05/19/2025 Generated for Angélica dinh/Toni/Krystal on: 1 10/20/2024 01:37 PM EST
--- OUTSIDE RECORDS SUMMARY | 2025-07-20 04:00 | XMS_ITS ---
Author Organization [facility] Address [address] [place] [address] Care Team Providers Care Structural Analyst Name Role Phone Milo Joshi Primary Care Provider Melanie Monge Unavailable [phone] Allergies Allergen (clinical drug ingredient) Drug/Non Drug Allergy documented on EMR Reaction Allergy Type Onset Date Status amoxicillin Amoxicillin hives Drug Allergy Act perla REASON FOR VISIT hospital D/C f/u, Symptom screening by [facility] staff pre entrance to clinic Social History Sex Assigned At : Social History Observation Description Sex Assigned At Male Encounters Encounter Location Date Provider Diagnosis [facility] [address] [place] [address] 07/20/2025 Melanie Monge Encounter for screening for COVID-19 Z11.52 Assessments Encounter Date Diagnosis (ICD Code) Assessment Notes Treatment Notes Treatment Clinical Notes Section Notes 07/20/2025 Encounter for screening for COVID-19 (ICD-10 - [...] you are having concerning symptoms for COVID-19. 07/20/2025 Other Plan Of Treatment Treatment Notes Assessment [...] symptoms for COVID-19. Next Appt Details Provider Name:Milo Alexyfarrah, 10/09/2025 03:00:00 PM, [address] [place] [address], [phone], Progress Notes * Rey TRANDOB:[birth year] (40 yo M)Acc No.[id number]:07/20/2025 Progress Notes Patient: Rey THORNTON Provider: AIDA MixHNP-BC :1985 A ge:40 Y S ex:Male Date:07/20/2025 Address:[address] [place], [place] [address] Pcp:Milo Joshi Subjective: * Chief Complaints: * 1 . hospital D/C f/u. 2. Symptom screening by [facility] staff pre entrance to clinic. * HPI: G eneral: Symptom Screen: - Fever in the last 1 week? Patient denies - New or worsening cough in the last 1 week? Patient denies. - Contact will known COVID exposure in last 5 days? Patient denies -new rash within last 3 weeks? Patient denies - Have you received the COVID-19 vaccine? - Have you received COVID-19 booster? - Have you been tested positive for COVID -19 in the last 7 days? If so where and why? RN/MA:. * ROS: N o acute C/P no acute SOB, No problem with urine, No heartburn or abdominal pain. Endorses being able to climb one fight of stairs without stopping due to SOB, Mood: stable, appetite: good, sleeping well. Denies new skin rashes. * Medical History: * Allergies: A moxicillin: hives. Objective: * Vitals: * Examination: P sychiatry: MassPat Review as appropriate 06/27/2025 06/27/2025 06/28/2025 2 Gabapentin 300 Mg Capsule 180 30 Er Led [id number] [facility] [id number] 0/0 Comm Ins .? Assessment: * Assessment: 1. E ncounter for screening for COVID-19 - Z11.52 (Primary) Plan: * Treatment: * Images: Billing Information: * Visit Code: * Procedure Codes: Care Plan Details* * Electronic signature of MIRTHA Feng on 08/19/2025 at 01:36 PM EST Sign off status: Pending * Provider: MARY Mix- Date: 09/19/2024 Generated for Angélica dinh/Toni/Krystal on: 10/20/2024 01:36 PM EST History and Physical Notes * Examination Category Sub-Category Detail Notes Category Not es Psychiatry MassPat Review as appropriate / 52Gabapentin 300 Mg [id number] (4607)0/0Comm InsMA
--- OUTSIDE RECORDS SUMMARY | 2025-07-20 06:27 | XMS_ITS ---
Author Organization [facility] Address [address] [place] [address] Care Team Providers Care Property Disposal Officer Name Role Phone Milo Joshi Primary Care Provider [phone] REASON FOR VISIT [facility] Social History Sex Assigned At : Social History Observation Description Sex Assigned At Male Encounters Encounter Location Date Provider Diagnosis [address] [address] 07/20/2025 Milo Joshi Plan Of Treatment Next Appt Details Provider Name:Milo Joshi, 10/09/2025 03:00:00 PM, [address] [place], [address], Progress Notes * CHELSEA ReyDOB:[birth year] (40 yo M)Acc No.[id number]:07/20/2025 Patient: Rey THORNTON :1985 A ge:40 Y S ex:Male Address:[address] [place] [address], [address] * * Date:
--- OUTSIDE RECORDS SUMMARY | 2025-07-23 06:00 | XMS_ITS ---
Author Organization [facility] Address [address] [place] [address] Care Team Providers Care Chiropractic Doctor Name Role Phone MadelynGunnarw Primary Care Provider [phone] Chela Torres Unavailable [phone] REASON FOR VISIT OFFICE: Re-engage in counseling Social History Sex Assigned At : Social History Observation Description Sex Assigned At Male Encounters Encounter Location Date Provider Diagnosis [address] [address] 07/23/2025 Chela Torres Plan Of Treatment Next Appt Details Provider Name:Milo Joshi, 10/09/2025 03:00:00 PM, [address] [place] [address], [phone], Progress Notes * Rey TRANDOB:[birth year] (40 yo M)Acc No.[id number]:07/23/2025 Progress Notes Patient: Rey THORNTON Provider: Nusrat Torres :1985 A ge:40 Y S ex:Male Date:07/23/2025 Address:[address] [place] [id number] Pcp:Milo Joshi Subjective: * Chief Complaints: * 1 . OFFICE: Re-engage in counseling. * Medical History: Objective: * Vitals: Assessment: Plan: * Treatment: * Images: Billing Information: * Visit Code: * Procedure Codes: Care Plan Details* * Electronic signature of Susanna Torres on 08/19/2025 at 01:35 PM EST Sign off status: Pending * Provider: Nusrat Torres Date: 09/22/2024 Generated for Angélica dinh/Toni/Krystal on: 1 10/20/2024 01:35 PM EST
--- OUTSIDE RECORDS SUMMARY | 2025-08-13 11:19 | XMS_ITS | Encounter Summary ---
Author Organization [facility] Address [address] [place] [id number] Care Team Providers Care Process Development Chemist Name Role Phone Physician, No Pcp Primary Care Provider Unavaila ble Reason for Visit * Reason Comments Drug Overdose States overdosed las t night on Heroine and Cocaine. Pt wanting detox and was told he needs medical clearance * Auth/Cert (Routine) Specialty Diagnoses / Procedures Referred By Contac t Referred To Contact Diagnoses Alcohol withdrawal (CMS/HCC V24, CMS/HCC V28) Alcohol withdrawal syndrome with perceptual disturbance (CMS/HCC V24, CMS/HCC V28) Procedures . Elder Hammer MD [address] [place] [phone] Phone: tel: fax: [facility] [address] [place] [phone] Phone: tel: Referral ID Status Reason Start Date Expiration Date Visits Re quested Visits Authorized [id number] 1 1 Encounter Details Date Type Department Care Team (Latest Contact Info) Description 08/13/2025 11:19 AM EST - 08/14/2025 12:39 PM EST Hospital Encounter [facility] [address] [place] [address] Chiki Hammer MD [address] [address] Josh Carr MD [address] [place] [address] Elder Hammer MD [address] [place] [address] Alcohol withdrawal syndrome with perceptual disturbance (CMS/HCC V24, CMS/HCC V28) (Primary Dx) Discharge Disposition: Left Against Medical Advice Social History Tobacco Use Types Packs/Day Years Used Date Smoking Tobacco: Every Day Cigarettes 2 24 Started: 2001 Smokeless Tobacco: Never Tobacco Cessation:Ready to Q uit: Not Asked; Counseling Given: Not Answered Interpersonal Safety Answer Date Record ed Physical Abuse Unrecognized value 08/13/2025 Verbal Abuse Unrecognized value 08/13/2025 Sex and Gender Information Value Date Recorded Sex Assigned at Not on file Legal Sex Male 6:22 AM EST Gender Identity Not on file Sexual Orientation Not on file documented as of this encounter Last Filed Vital Signs Vital Sign Reading Time Taken Comments Blood Pressure 126/81 08/14/2025 7:45 AM EST Pulse 79 08/14/2025 7:45 AM EST Temperature 36 C (96.8 F) 08/14/2025 7:45 AM EST Respiratory Rate 22 08/14/2025 7:45 AM EST Oxygen Saturation 98% 08/14/2025 7:45 AM EST Inhaled Oxygen Concentration - - Weight 113 kg (250 lb) 08/13/2025 11:14 AM EST Height 182.9 cm (6') 08/13/2025 11:14 AM EST Body Mass Index 33.91 08/13/2025 11:14 AM EST documented in this encounter Functional Status * Calculated C-SSRS Risk Score (Lifetime/Recent) Answer Date of Assessment Author No Risk Indicated 08/13/2025 11:14 AM EST Guera Fields RN * [place] Suicide Severity Rating Scale (Screener/Recent Self-Report) Question Answer Date of Assessment Author 1. Wish to be (Past 1 Month) No 08/13/2025 11:14 AM EST Guera Urban RN 2. Non-Specific Active Suicidal Thoughts (Past 1 Month) No 08/13/2025 11:14 AM EST Guera Urban RN 6. Suicidal Behavior (Lifetime) No 08/13/2025 11:14 AM EST Guera Urban RN documented as of this encounter Discharge Summaries * Julia Mckeon NP - 08/14/2025 12:39 PM EST Images from the original note were not included. [facility] DISCHARGE SUMMARY Patient Information Rey Abad : 1985 [40 y.o.] Admitting Provider Elder Hammer MD Discharge Provider Julia Mckeon NP, No att. providers found Primary Care Physician No Pcp Physician Admission Date 08/13/2025 Discharge Date 08/15/2025 Summary of Hospital Problems Presenting Chief Complaint: Alcohol withdrawal Primary Discharge Diagnosis: Patient left against medical advice Alcohol withdrawal Alcohol use disorder Unintentional opioid overdose Polysubstance abuse Cocaine abuse Hypertension Depression Leukocytosis Transaminitis Tourette's syndrome Tobacco abuse Obesity BMI is 33 Hypomagnesemia Discharge Destination: Left against medical advice Code Status at Discharge: FULL CODE Inpatient Consultants: Patient was see by Addiction medicine specialist Dr. Moon Please see note and recommendations below: Assessment and Plan Rey Abad is a 40 y.o. male with a history of alcohol and opioid use disorders admitted for management of withdrawal symptoms. Opioid Use Disorder Patient is a good candidate for MOUD Has been on suboxone in the past and would like to restart Start 2 mg SL bup/nal TID Will continue to follow to review options for treatment and offer support Patient would benefit from harm reduction counseling and supplies including fentanyl test strips and Narcan prior to discharge Team will continue to follow and engage with patient. Alcohol Use Disorder Patient received 10mg/kg of ideal body weight IM phenobarbital loading protocol Does not need further doses of phenobarbital Recommend thiamine, folate and multivitamin. Replete electrolytes. Discussed treatment of alcohol use disorder and reviewed medications for alcohol use disorder (ALEKSANDAR) Patient would like CSS/TSS placement Patient will be given a packet of resources Team will continue to engage with patient and offer support. Thank you for the interesting consultation. Please reach out with any questions or concerns. Principal Problem: Alcohol withdrawal ([facility] V24, [facility] V28) Provider Attestation Electronically signed by Naomi Wheeler DO Pertinent Imaging Findings: XR Chest 1 View Final Result FINDINGS/IMPRESSION: Hypoventilatory examination with bronchovascular crowding. No consolidation, effusion or CHF. -------- FINAL REPORT -------- Dictated By: Leon Jeronimo Dictated Date: 08/13/2025 16:13 ET Assigned Physician: Leon Jeronimo Reviewed and Electronically Signed By: Leon Jeronimo Signed Date: 08/13/2025 16:14 ET Workstation ID: [id number] Transcribed By: Self Edit Transcribed Date: 08/13/2025 16:13 ET Procedures Performed: None Please see chief complaint and history of present illness from history and physical by Jocelyn Harris PUMP ROOM OPERATOR from 08/13/2025 below: My body found me at my fishing spot, I overdosed, I did not need Narcan or anything, he said I wasblue but I responded on my own HISTORY OF PRESENT ILLNESS This is a 40 year old male with a past medical history significant for Tourette's syndrome, anxiety and depression, alcohol use/abuse with history of withdrawal, polysubstance use/abuse with recent report of using heroin/cocaine who presents emergency department today for an evaluation of wanting detox. Upon assessment of patient, he is initially observed on his phone however he is not talking and appears to be sleeping. Patient is arousable to light tactile stimuli. Once patient awakens, he needs to have frequent verbal and tactile stimulation to stay awake for conversation. Patient tells me that his mother a little over a month ago and he had to sell her house and hehas been really depressed. He reports that since then, he has struggling to keep clean . Patientreports that prior to coming into the emergency department he drank 1 L of whiskey and a few beers,he reports that he has been partaking in drug use which includes cocaine, fentanyl as well as heroin. He reports that he has been using about 1 g of each daily and he reports he last used yesterday. Patient tells me that his friend came to check on him at the fishing spot, he told me that I was not responding to him. He did not need to give me Narcan or anything but he told me that I was blue and I came to on my own. I have never overdosed before, that made I realize I need more help ECG: NSR Initial laboratory results: CMP reveals AST/ALT of 110/84, total protein 8.1. CBC reveals leukocytosis of 13.1. Drug tox positive for amphetamines, barbiturates, cocaine, fentanyl and opiates. Ethanol level less than 3. In the emergency department the above was performed and patient received 2 mg IV Ativan, 4 mg IV ondansetron, 1L NS and was started on phenobarbital protocol. The decision was made to admit patient for medical management. Hospital Course Summary Acute Alcohol withdrawal Alcohol use disorder Patient reports his last drink of alcohol was around 1:00 am 08/13/25 He normally drinks 1 L of hard liquor and 12 pack of beers daily. Ethanol level on arrival 3 Continue Oral phenobarbital taper Continue Folic acid, MVI and IV thiamine Alcohol abstinence encouraged Appreciate addiction medicine input and recommendations Of note patient left against medical advice on 08/14/2025 Unintentional opioid overdose Polysubstance abuse Cocaine abuse No suicidal ideations Seen by psych and did not meet criteria for section 12 Used Heroin and cocaine last evening Urine drug screen was positive for Fentanyl, barbiturate, amphetamine, and cocaine Appreciate addition medicine input and recommendations Continue Clonidine TID 6. Hypertension Blood pressure stable 126/81 7. Depression Continue Abilify Continue Remeron Continue trileptal Continue PRN hydroxyzine 8. Leukocytosis Resolved Likely reactive No signs of acute infection Afebrile 9. Transaminitis In the setting of chronic ETOH abuse AST 110 and ALT 84 Trend while in the hospital Denies abdominal pain Repeat LFT's in am 10. Tourette's syndrome 11. Tobacco abuse Smoking cessation encourage Continue Nicotine patch 12. Obesity BMI is 33 Weight loss encouraged 13. Hypomagnesemia Mag level was 1.8 Given 2 grams IV magnesium today Repeat mag level in am 14. FULL CODE Follow-Up Instructions and Recommendations Pending Labs at Discharge: Pending Labs Order Current Status Myoglobin In process Discharge Medications Your medication list ASK your doctor about these medications Instructions Last Dose Given Next Dose Due ARIPiprazole 5 mg tablet Commonly known as: ABILIFY Take 1 tablet (5 mg total) by mouth daily. buPROPion XL 300 mg 24 hr tablet Commonly known as: WELLBUTRIN XL Take 1 tablet (300 mg total) by mouth daily. cloNIDine 0.1 mg tablet Commonly known as: CATAPRES Take 1 tablet (0.1 mg total) by mouth 3 (three) times a day if needed. gabapentin 600 mg tablet Commonly known as: NEURONTIN Take 1 tablet (600 mg total) by mouth 3 (three) times a day. hydrOXYzine pamoate 25 mg capsule Commonly known as: VISTARIL Take 1-2 capsules (25-50 mg total) by mouth every 4 (four) hours if needed for anxiety. TAKE 1 TO 2CAPSULES BY MOUTH EVERY 4 HOURS NEEDED lidocaine 4 % patch Place 2 patches on the skin 1 (one) time each day at the same time. APPLY 2 PATCHES DAILY FOR RIGHTKNEE PAIN lisinopriL 5 mg tablet Commonly known as: PRINIVIL,ZESTRIL Take 1 tablet (5 mg total) by mouth 1 (one) time each day. take 1 tablet by mouth every day for hypertension melatonin 3 mg tablet Take 2 tablets (6 mg total) by mouth at bedtime. mirtazapine 15 mg tablet Commonly known as: REMERON Take 1 tablet (15 mg total) by mouth at bedtime. naproxen 500 mg tablet Commonly known as: NAPROSYN Take 1 tablet (500 mg total) by mouth 2 (two) times a day with meals. nicotine 21 mg/24 hr Commonly known as: NICODERM CQ Place 1 patch on the skin daily. nicotine polacrilex 4 mg gum Commonly known as: NICORETTE Place 1 each (4 mg total) into mouth between cheek and gum. CHEW 1 GUM BY ORAL ROUTE 1 TIME PER HOUR NEEDED AND DIRECTED OXcarbazepine 300 mg tablet Commonly known as: TRILEPTAL Take 1 tablet (300 mg total) by mouth 2 (two) times a day. pantoprazole 40 mg EC tablet Commonly known as: PROTONIX Take 1 tablet (40 mg total) by mouth 1 (one) time each day before breakfast. prazosin 2 mg capsule Commonly known as: MINIPRESS Take 1 capsule (2 mg total) by mouth daily. Physical Exam at time of Discharge Physical Exam Constitutional: Appearance: Normal appearance. HENT: Head: Normocephalic. Nose: Nose normal. Eyes: Extraocular Movements: Extraocular movements intact. Cardiovascular: Rate and Rhythm: Normal rate and regular rhythm. Pulses: Normal pulses. Heart sounds: Normal heart sounds. Pulmonary: Effort: Pulmonary effort is normal. Breath sounds: Normal breath sounds. Abdominal: General: Bowel sounds are normal. Musculoskeletal: General: Normal range of motion. Cervical back: Normal range of motion. Skin: General: Skin is warm and dry. Neurological: General: No focal deficit present. Mental Status: He is alert and oriented to person, place, and time. Psychiatric: Mood and Affect: Mood normal. Behavior: Behavior normal. Vitals Visit Vitals BP 126/81 (BP Location: Right arm, Patient Position: Lying) Pulse 79 Temp 36 ??C (96.8 ??F) (Temporal) Resp 22 No data recorded. Body mass index is 33.91 kg/m??. No results found for: PTWT , PTHT Patient left against medical advice Cosigned by Josh Carr MD at 08/15/2025 2:51 PM EST documented in this encounter Medications at Time of Discharge ARIPiprazole (ABILIFY) 5 mg tablet Take 1 tablet (5 mg total) by mouth daily. buPROPion XL (WELLBUTRIN XL) 300 mg 24 hr tablet Take 1 tablet (300 mg total) by mouth daily. cloNIDine (CATAPRES) 0.1 mg tablet Take 1 tablet (0.1 mg total) by mouth 3 (three) times a day if needed. 07/26/2025 gabapentin (NEURONTIN) 600 mg tablet Take 1 tablet (600 mg total) by mouth 3 (three) times a day. hydrOXYzine pamoate (VISTARIL) 25 mg capsule Take 1-2 capsules (25-50 mg total) by mouth every 4 (four) hours if needed for anxiety. TAKE 1 TO 2 CAPSULES BY MOUTH EVERY 4 HOURS NEEDED 07/26/2025 lidocaine 4 % patch Place 2 patches on the skin 1 (one) time each day at the same time. APPLY 2 PATCHES DAILY FOR RIGHT KNEE PAIN 02/09/2025 lisinopriL (PRINIVIL,ZESTRI L) 5 mg tablet Take 1 tablet (5 mg total) by mouth 1 (one) time each day. take 1 tablet by mouth every day for hypertension 04/12/2025 melatonin 3 mg tablet Take 2 tablets (6 mg total) by mouth at bedtime. mirtazapine (REMERON) 15 mg tablet Take 1 tablet (15 mg total) by mouth at bedtime. 03/21/2025 naproxen (NAPROSYN) 500 mg tablet Take 1 tablet (500 mg total) by mouth 2 (two) times a day with meals. 09/27/2024 nicotine (NICODERM CQ) 21 mg/[address] 1 patch on the skin daily. 02/09/2025 nicotine polacrilex (NICORETTE) [address] 1 each (4 mg total) into mouth between cheek and gum. CHEW 1 GUM BY ORAL ROUTE 1 TIME PER HOUR NEEDED AND DIRECTED OXcarbazepine (TRILEPTAL) 300 mg tablet Take 1 tablet (300 mg total) by mouth 2 (two) times a day. 07/26/2025 pantoprazole (PROTONIX) 40 mg EC tablet Take 1 tablet (40 mg total) by mouth 1 (one) time each day before breakfast. 04/12/2025 prazosin (MINIPRESS) 2 mg capsule Take 1 capsule (2 mg total) by mouth daily. 02/08/2025 documented as of this encounter Discharge Disposition Disposition Code Departure Means Destination Comment s Left Against Medical Advice Walk-out documented in this encounter Progress Notes * Tamra Yee RN - 08/14/2025 12:33 PM EST At roughly 1145 pt came to his room door and told this nurse that he wanted to discharge himself. This nurse asked why and the patient responded that he feels fine and hates being in the hospital . Pt also stated that he's not going to drink when leaving the hospital. This nurse explained that the patient is in active withdrawal and it would be safer for him to stay to get through the withdrawal. Patient declined to stay. This nurse also explained that we wouldn't be able to get him a ride home or send any medications. The patient still declined to stay. AMA form was completed by this nurse with patient. Provider Julia Mckeon NP notified of patient's desire to leave AMA. IV removed, tele box removed, Patient observed walking off unit independently at 1200. * Shon Marquis - 08/14/2025 10:39 AM EST [employer] Sales Representative Note I met with the pt in his room. He was sitting on the edge of the bed. During our time, he reported that since his mother he fell off and started to drink heavy, with a single heroin/cocaine use which led to his overdose. He also reported he didn't think he has a problem with drinking until the withdrawals started. He reported that he would like to get into an [facility] program and him Nitish went over the list of places he would like the referrals. We also were able to talk about if he would like to be on a MOUD, he reported he used to take methadone but would like to try Suboxone. I provided him with a resource packet and my business contact information. I will continue to follow up and support the pt while in our care. Shon Marquis Certified [employer] Sales Representative [address] [place] [id number] [employer] Sales Representative Office [address] [place] [address] Medical Office - [employer] Sales Representative Office - Addiction Office Rm 304 [email or web address] * KIKA Nguyen - 08/14/2025 9:46 AM EST Case management intake: 08/14/25 0942 Initial Transition Plan Initial Transition Plan Other(Comment) (Patient requesting detox) Back up Transition Plan Back up Transition plan Home Discharge Planning Contact (Name, Phone #, Relationship) for DC Planning JUANITA Ace [phone] Living Arrangements Homeless Type of Residence Other (Comment) (has been staying with friends or motel) Assistive Devices None Support Systems Spouse/significant other;Friends Medication Coverage Has Med Coverage Under Insurance Plan Yes Informed Choice Informed Choice Given? Yes Discharge Barriers Barriers to Discharge Plan (electrolytes, labs, CIWA/pheno, addiction med consult, tele monitoring) Patient confirms all demographics and information. He is not a . PCP is Dr. Milo Joshi. Case management social insurance analyst will remain available to assess, support, and provide advocacy. Patient elects Silvia as his HCP, will complete documentation with patient and upload to chart. * Salma Mancuso RN - 08/13/2025 4:52 PM EST ED RN HANDOFF (All [place] Below Must Be Completed) Reason/Diagnosis for Admission: Type of Admission: [] Medsurg, [x] Telemetry Already in a Hospital Bed: [] Yes / [x] No Room Considerations/Precautions (ex: fever, diarrhea, or any infectious concerns): [] Yes / [x] No Edge Blacker: [x] Yes / [] No If YES, Cardiac Rhythm: [x] NSR, [] SB, [] ST, [] A-FIB, [] A-Flutter, [] Pacemaker, [] 1st Degree HB, [] 2nd Degree HB, [] 3rd Degree HB Reason for Edge Blacker: ETOH / phenobarb O2 []Yes /[x]No If YES, how many Liters: VS: Visit Vitals BP (!) 143/87 Pulse 86 Temp 36.4 ??C (97.5 ??F) (Oral) Resp 16 Ht 1.829 m (72 ) Wt 113 kg (250 lb) SpO2 99% BMI 33.91 kg/m?? BSA 2.34 m?? Current Mental Status: A/O x [x]4, []3, []2, []1 IV Access: [x] Yes / [] No Field IV present: [] Yes / [x] No Hx of Violence: [] Yes / [x] No / [] Unknown Current Ambulation Status: Independent Fall Risk:[] Yes / [x] No Yellow Bracelet Applied [] Yes / [x] No Yellow Socks Applied [] Yes / [x] No Patient Belongings inventoried and BL completed: [] Yes / [x] No Patient belongings stored in the security closet: [] Yes (If Yes please supply Security bag #): [x] No Patient Medications stored in Pharmacy: [] Yes (If Yes please supply Medication Security bag #): [x] No meds being sent with pt. ED Summary of Care: Pt doing well with the phenobarb. Pt brought all his meds with him and bags of belongings as he thought he was going to a detox facility from the ED. * Kanika Rodriguez - 08/13/2025 4:29 PM EST Images from the original note were not included. Medication History Can Line Examiner Medication history has been obtained for Rey Abad (1985) by a Medication Historian and the home med list has been updated. History obtained from conversation with: Unable to obtain direct contact Additional Source(s) of History: Other PATIENT'S OWN MEDS []Updated Patient Preferred Pharmacy The Patient's Home Medications include: HOME MEDICATIONS INSTRUCTIONS cloNIDine (CATAPRES) 0.1 mg tablet Take 1 tablet (0.1 mg total) by mouth 3 (three) times a day if needed. hydrOXYzine pamoate (VISTARIL) 25 mg capsule Take 1-2 capsules (25-50 mg total) by mouth every 4 (four) hours if needed for anxiety. TAKE 1 TO 2 CAPSULES BY MOUTH EVERY 4 HOURS NEEDED lidocaine 4 % patch Place 2 patches on the skin 1 (one) time each day at the same time. APPLY 2 PATCHES DAILY FOR RIGHT KNEE PAIN lisinopriL (PRINIVIL,ZESTRIL) 5 mg tablet Take 1 tablet (5 mg total) by mouth 1 (one) time each day. take 1 tablet by mouth every day for hypertension mirtazapine (REMERON) 15 mg tablet Take 1 tablet (15 mg total) by mouth at bedtime. naproxen (NAPROSYN) 500 mg tablet Take 1 tablet (500 mg total) by mouth 2 (two) times a day with meals. nicotine (NICODERM CQ) 21 mg/[address] 1 patch on the skin daily. OXcarbazepine (TRILEPTAL) 300 mg tablet Take 1 tablet (300 mg total) by mouth 2 (two) times a day. pantoprazole (PROTONIX) 40 mg EC tablet Take 1 tablet (40 mg total) by mouth 1 (one) time each day before breakfast. prazosin (MINIPRESS) 2 mg capsule Take 1 capsule (2 mg total) by mouth daily. ARIPiprazole (ABILIFY) 5 mg tablet Take 1 tablet (5 mg total) by mouth daily. buPROPion XL (WELLBUTRIN XL) 300 mg 24 hr tablet Take 1 tablet (300 mg total) by mouth daily. gabapentin (NEURONTIN) 600 mg tablet Take 1 tablet (600 mg total) by mouth 3 (three) times a day. melatonin 3 mg tablet Take 2 tablets (6 mg total) by mouth at bedtime. nicotine polacrilex (NICORETTE) [address] 1 each (4 mg total) into mouth between cheek and gum. CHEW 1 GUM BY ORAL ROUTE 1 TIME PER HOUR NEEDED AND DIRECTED Thank you, Kanika Rodriguez Medication Historian W: [phone] * Guera Noel RN - 08/13/2025 11:12 AM EST Pt to ED for medical clearance for detox from opiates - Pt states he is starting to have withdrawalsymptoms as he last used yesterday. Pt states he uses about 1 gram of each heroine and cocaine daily. Pt states daily ETOH consisting of 1 liter and 1 - 12 pack daily. Pt states last drink was around1 this morning. * Chiki Hammer MD - 08/13/2025 11:08 AM ESTAssociated Order(s): Critical Care Emergency Medicine Note Patient Name: Rey Abad Initial Evaluation: 08/13/2025 : 1985 Patient's PCP: No Pcp Physician Emergency Physician: Chiki Hammer MD History of Present Illness Chief Complaint: Chief Complaint Patient presents with ??? Drug Overdose States overdosed last night on Heroine and Cocaine. Pt wanting detox and was told he needs medical clearance HPI: 40 y.o. male has no past medical history on file. Patient presents with symptoms of withdrawal. Nausea vomiting. Last drink was last night. He drinks about 10 beers a day plus a liter of alcohol. Also an episode of accidental overdose last night. Does have a history of alcohol withdrawal seizures other than this he has a history of Tourette's he is was sent over on referral after trying to go to detox but they recommended he come to the emergency room for stabilization. ROS: I have performed a ROS with the pertinent positives and negatives documented in the history ofpresent illness. Previous History Medical History[1] Surgical History[2] Social History[3] Family History[4] is allergic to penicillins. Medications Ordered Prior to Encounter[5] Physical Exam ED Triage Vitals Temp Heart Rate Resp BP 08/13/25 1114 08/13/25 1114 08/13/25 1114 08/13/25 1114 36.4 ??C (97.5 ??F) 81 17 (!) 149/95 SpO2 Temp Source Heart Rate Source Patient Position 08/13/25 1114 08/13/25 1114 08/13/25 1115 08/13/25 1114 95 % Oral Other (Comment) Sitting BP Location FiO2 (%) -- -- General: Well-appearing, well nourished, moderate distress HEENT: PERRL, EOMI, external ears and nose appear unremarkable, airway is patent Neck: Supple, full range of motion, no meningismus, no JVD Chest: Clear to auscultation; no evidence of respiratory distress Circulatory: The rate and rhythm , no murmurs rubs or gallops Abdomen: Non-distended, Non-Tender Extremities: Normal ROM, No edema, ranging all extremities without difficulty Skin: Warm and dry, well-perfused , no rashes Neuro: Alert and oriented x 3. no motor or sensory deficits diffusely tremulous Psyche: Normal affect Results Labs Reviewed COMPREHENSIVE METABOLIC PANEL ETHANOL MAGNESIUM MYOGLOBIN, SERUM CBC AND DIFFERENTIAL Narrative: The following orders were created for panel order CBC and differential. Procedure Abnormality Status --------- ------ CBC auto differential[[id number]] Please view results for these tests on the individual orders. DRUG ABUSE SCREEN 8A PANEL, URINE FENTANYL, URINE CBC WITH AUTO DIFFERENTIAL Abnormal Labs Reviewed - No abnormal labs to display No orders to display I have discussed the incidental/abnormal imaging and/or lab abnormalities with the patient and haveinstructed them the need for further evaluation and workup with their primary care doctor. I have provided the patient with a paper copy of the abnormality. The laboratory results, imaging results and other diagnostic exam results were reviewed in the EMR. EKG Interpretation Critical Care Time 30 min Medical Decision Making Differential diagnosis includes: Alcohol withdrawal, opiate withdrawal, polysubstance abuse, cholinergic toxidrome, excitatory delirium, serotonin syndrome, viral syndrome, Cannabannoid hyperemesis syndrome, DKA, stimulant overdose. Medications sodium chloride 0.9 % bolus 1,000 mL (1,000 mL intravenous New Bag 08/13/25 1153) PHENobarbital injection 256.1 mg (has no administration in time range) LORazepam (ATIVAN) injection 2 mg (2 mg intravenous Given 08/13/25 1152) ondansetron (PF) (ZOFRAN) injection 4 mg (4 mg intravenous Given 08/13/25 1153) ED Course as of 08/13/25 1442 WedAug 13, 2025 140 Labs show a mild leukocytosis, and transaminitis, but no other significant abnormalities. [JL] ED Course User Index [JL] Chiki Hammer MD Clinical Impressions as of 08/13/25 144 Alcohol withdrawal syndrome with perceptual disturbance (CMS/[facility] V24, CMS/[facility] V28) Procedures Critical Care Performed by: Chiki Hammer MD Authorized by: Chiki Hammer MD Critical care provider statement: Critical care time (minutes): 30 Total face to face critical care time (minutes): 30 Critical care was necessary to treat or prevent imminent or life-threatening deterioration of the following conditions: Toxidrome Critical care was time spent personally by me on the following activities: Re- evaluation of patient's condition and ordering and performing treatments and interventions Face to face critical care was time spent personally by me on the following activities: Ordering and performing treatments and interventions and re- evaluation of patient's condition I assumed direction of critical care for this patient from another provider in my specialty: no Comments: Pt required my immediate attention due to severe etoh w/d with a CIWA of 15 and COWS elevation Phenobarbital withdrawal protocol started in addtion given ativan 2mg IV. Will add on addiction medconsultation Diagnosis No diagnosis found. Disposition Data Unavailable ED Prescriptions None Physician Attestation Chiki Hammer MD 08/13/25 1220 Chiki Hammer MD 08/13/25 1313 Chiki Hammer MD 08/13/25 1314 [1] No past medical history on file. [2] No past surgical history on file. [3] [4] No family history on file. [5] No current facility-administered medications on file prior to encounter. No current outpatient medications on file prior to encounter. Chiki Hammer MD 08/13/25 1442 documented in this encounter H&P Notes * Jocelyn Harris NP - 08/13/2025 2:39 PM EST Images from the original note were not included. .. [facility] HISTORY [facility] PHYSICAL Please contact author [Jocelyn Harris NP] via [employer] (previously [employer]). Patient: Rey Abad Admission Date/Time: 08/13/2025 11:19 AM : 1985 [40 y.o.] Patient's PCP: No Pcp Physician Attending Provider: Chiki Hammer MD CHIEF COMPLAINT My body found me at my [place] spot, I overdosed, I did not need Narcan or anything, he said I wasblue but I responded on my own HISTORY OF PRESENT ILLNESS This is a 40 year old male with a past medical history significant for Tourette's syndrome, anxietyand depression, alcohol use/abuse with history of withdrawal, polysubstance use/abuse with recent report of using heroin/cocaine who presents emergency department today for an evaluation of wanting detox. Upon assessment of patient, he is initially observed on his phone however he is not talking and appears to be sleeping. Patient is arousable to light tactile stimuli. Once patient awakens, he needs to have frequent verbal and tactile stimulation to stay awake for conversation. Patient tells me that his mother a little over a month ago and he had to sell her house and hehas been really depressed. He reports that since then, he has struggling to keep clean . Patientreports that prior to coming into the emergency department he drank 1 L of whiskey and a few beers,he reports that he has been partaking in drug use which includes cocaine, fentanyl as well as heroin. He reports that he has been using about 1 g of each daily and he reports he last used yesterday.Patient tells me that his friend came to check on him at the fishing spot, he told me that I was not responding to him. He did not need to give me Narcan or anything but he told me that I was blue and I came to on my own. I have never overdosed before, that made I realize I need more help ECG: NSR Initial laboratory results: CMP reveals AST/ALT of 110/84, total protein 8.1. CBC reveals leukocytosis of 13.1. Drug tox positive for amphetamines, barbiturates, cocaine, fentanyl and opiates. Ethanol level less than 3. In the emergency department the above was performed and patient received 2 mg IV Ativan, 4 mg IV ondansetron, 1L NS and was started on phenobarbital protocol. The decision was made to admit patient for medical management. Review of Systems A complete 10 point review of systems has been performed and if not noted in HPI is otherwise negative. MEDICAL HISTORY Past Medical History Medical History[1] Past Surgical History Surgical History[2] Social History Family History family history is not on file. Allergies is allergic to penicillins. Home Medications Medications Ordered Prior to Encounter[3] OBJECTIVE Vitals Visit Vitals BP (!) 141/82 Pulse 85 Temp 36.4 ??C (97.5 ??F) (Oral) Resp 17 Temp (24hrs), Av.4 ??C (97.5 ??F), Min:36.4 ??C (97.5 ??F), Max:36.4 ??C (97.5 ??F) Body mass index is 33.91 kg/m??. No results found for: PTWT , PTHT Physical Examination General: Appears stated age, no respiratory distress, initially observed holding his phone to ER however appears to be sleeping. Needs verbal and tactile stimulation to stay awake to converse. Skin: Clean, dry and intact, no obvious open wounds or sores, patient is noted to have what appearsto be a psoriasis rash to his face Cardiac: Regular rate and rhythm, S1-S2 noted, no murmurs, rubs, gallops or clicks, no JVD or interstitial edema, no carotid bruits Respiratory: Lung sounds are diminished however CTAB, no expiratory wheezes, rales or rhonchi, no accessory respiratory muscles noted or evidence of nasal flaring. Abdomen: Soft, rounded, nontender, nondistended, bowel sounds active in all 4 quadrants, no abdominal guarding or Briscoe sign. Extremities: No peripheral or pedal edema noted. No swelling, redness or tenderness noted to bilateral lower legs. Neuro: Alert and oriented x3, no motor or sensory deficits Psychiatric: Currently cooperative, without agitation or restlessness. ECG: Was ECG Performed? Yes . Sinus Rhythm? Yes. Signs of acute ischemia? LAB RESULTS (most recent) HEMATOLOGY Lab Results Component Value Date WBC 13.1 (H) 08/13/2025 HGB 14.2 08/13/2025 HCT 41.6 (L) 08/13/2025 MCV 91.4 08/13/2025 PLT 308 08/13/2025 CHEMISTRY Lab Results Component Value Date GLUCOSE 77 08/13/2025 NA 135 08/13/2025 K 4.0 08/13/2025 CO2 27 08/13/2025 CL 97 08/13/2025 BUN 24 08/13/2025 CREATININE 0.98 08/13/2025 EGFR 99 08/13/2025 CALCIUM 9.0 08/13/2025 MG 1.9 08/13/2025 ANIONGAP 11 08/13/2025 Radiology XR Chest 1 View (Results Pending) ASSESSMENT & PLAN ACUTE MEDICAL ISSUES: Alcohol dependence with withdrawal - Patient reports his last drink of alcohol was around 1:00 in the morning and he normally drinks 1L of hard liquor and 112 pack of beers daily. - Ethanol level on arrival 3 - Loaded with phenobarbital, will continue taper - Trazodone ordered at at bedtime, continue oxcarbazepine - Addiction medicine consulted, recommendations appreciated Polysubstance abuse with accidental overdose - Patient carries a history of polysubstance use/abuse, per ED provider patient reported that he had an accidental overdose last night. - Patient denies SI/HI - Patient reports that he used 1 g of both heroin and cocaine last yesterday. - Urine fentanyl positive - Will obtain full drug tox - Start clonidine every 8 hours and hydroxyzine as needed Hypertension - Most recent blood pressure documented as 141/82 - Patient is prescribed lisinopril and Minipress. He also has clonidine as needed. - Started on clonidine to assist with withdrawal symptoms but should also help blood pressure. Continue to trend/monitor. Worsening depression - Patient does carry history of depression, reports that he has been struggling recently with worsening depression as his mother over a month ago and he recently had this done in his house. - Patient is denying SI/HI however he does report that he has felt depressed lately. - Patient was recently seen in another facility and has been prescribed hydroxyzine 25-50 mg every 4 hours as needed anxiety, clonidine 0.1 mg 3 times daily as needed, mirtazapine 15 mg at bedtime, Trileptal 300 mg twice daily, aripiprazole 5 mg daily, Wellbutrin 300 mg daily and gabapentin 600 three times daily which has been continued - Psych consult placed. Recommendations appreciated Leukocytosis - Patient was noted to have leukocytosis of 13.1. Secondary reactive from vomiting however will obtain chest x-ray and UA to rule out infection Transaminitis - AST/ALT 110/84, likely secondary to alcohol use/abuse. Continue to trend. Cessation recommended. CHRONIC MEDICAL ISSUES: Tourette's - Not maintained on medications chronically. Tobacco abuse Tobacco abuse counseling - Patient reports he smokes 1 PPD - 3-10 interested in smoking cessation - NRT therapy was offered OTHER: DVT Prophylaxis - Lovenox. CODE STATUS: FULL CODE HCP/emergency contact is significant other Silvia Ace, Case and plan discussed with Dr. Lloyd Newsome [1] No past medical history on file. [2] No past surgical history on file. [3] No current facility-administered medications on file prior to encounter. Current Outpatient Medications on File Prior to Encounter Medication Sig Dispense Refill OXcarbazepine (TRILEPTAL) 300 mg tablet Take 1 tablet (300 mg total) by mouth 2 (two) times a day. Cosigned by Lloyd Newsome MD at 08/14/2025 2:37 PM EST Associated attestation - Lloyd Newsome MD - 08/14/2025 2:37 PM EST This is a split/shared visit with Jocelyn Harris NP. I personally performed the medical decision making (MDM) for the care of this patient on 08/13/25 asdocumented below I have personally reviewed and interpreted this patient's medical records, vital signs, labs and radiology data. I discussed case with Jocelyn Dunlap and I agree with physical exam assessment and plan as outlined in her note. This is a 40-year-old male with history of depression alcohol use and Tourette's syndrome as well as polysubstance abuse including heroin and cocaine who is currently being admitted to the hospital with acute alcohol dependence and withdrawal requiring phenobarbital protocol. Agree with admission to the hospital thiamine and folate phenobarbital and to switch to p.o. phenobarbital tomorrow. 2 accidental overdose yesterday with heroin and cocaine. His vital signs are currently stable I do not expect any change due to this. Agree with hydroxyzine as needed and clonidine for withdrawal symptoms of opiates. Chronic management as below. Lloyd Newsome MD 08/14/2025 2:35 PM EST documented in this encounter Consult Notes * Naomi Wheeler DO - 08/14/2025 10:42 AM ESTAssociated Order(s): IP CONSULT TO ADDICTION MEDICINE Images from the original note were not included. Rey Abad 1985 [id number] Author: Naomi Wheeler DO DOS: 08/14/2025 Requesting Service: Hospitalist Service Chief Complaint: Alcohol withdrawal ([facility] V24, [facility] V28) Reason for Consultation: Opioid use disorder, Cocaine use disorder, and Alcohol use disorder Source of History: Patient and chart Subjective History of Present Illness: Rey Abad is a 40 y.o. male with a history of alcohol and opioid use disorders admitted formanagement of alcohol withdrawal. Patient states that he was recently [facility] and was drinking whilehe was there for a total of 3 to 4 weeks. He reports that he left and resumed drinking a liter of whiskey and 12 pack of Heineken beer. He states that he woke up in the [place] after using heroin and cocaine and believes that he may have overdosed. His friend reported that he was blue but did not require Narcan. Patient reports that prior to going to [facility] he had been using a gram of IV heroin/fentanyl and cocaine daily for 2 years. He complains of headache but denies any nausea or vomiting. He would like to start Suboxone. He states that he was last on it 5 years ago through [facility]. Allergies: Allergies[1] Home Medications: Prior to Admission medications Medication Sig Start Date End Date Taking? Authorizing Provider cloNIDine (CATAPRES) 0.1 mg tablet Take 1 tablet (0.1 mg total) by mouth 3 (three) times a day if needed. 07/26/25 Yes Historical Provider, hydrOXYzine pamoate (VISTARIL) 25 mg capsule Take 1-2 capsules (25-50 mg total) by mouth every 4 (four) hours if needed for anxiety. TAKE 1 TO 2 CAPSULES BY MOUTH EVERY 4 HOURS NEEDED 07/26/25 YesHistorical Provider, lidocaine 4 % patch Place 2 patches on the skin 1 (one) time each day at the same time. APPLY 2 PATCHES DAILY FOR RIGHT KNEE PAIN 02/09/25 Yes Historical Provider, lisinopriL (PRINIVIL,ZESTRIL) 5 mg tablet Take 1 tablet (5 mg total) by mouth 1 (one) time each day. take 1 tablet by mouth every day for hypertension 04/12/25 Yes Historical Provider, mirtazapine (REMERON) 15 mg tablet Take 1 tablet (15 mg total) by mouth at bedtime. 03/21/25 Yes Historical Provider, naproxen (NAPROSYN) 500 mg tablet Take 1 tablet (500 mg total) by mouth 2 (two) times a day with meals. 09/27/24 Yes Historical Provider, nicotine (NICODERM CQ) 21 mg/[address] 1 patch on the skin daily. 02/09/25 Yes Historical Provider, OXcarbazepine (TRILEPTAL) 300 mg tablet Take 1 tablet (300 mg total) by mouth 2 (two) times a day. 07/26/25 Yes Historical Provider, pantoprazole (PROTONIX) 40 mg EC tablet Take 1 tablet (40 mg total) by mouth 1 (one) time each day before breakfast. 04/12/25 Yes Historical Provider, prazosin (MINIPRESS) 2 mg capsule Take 1 capsule (2 mg total) by mouth daily. 02/08/25 Yes HistoricalProvider, ARIPiprazole (ABILIFY) 5 mg tablet Take 1 tablet (5 mg total) by mouth daily. Historical Provider, buPROPion XL (WELLBUTRIN XL) 300 mg 24 hr tablet Take 1 tablet (300 mg total) by mouth daily. Historical Provider, gabapentin (NEURONTIN) 600 mg tablet Take 1 tablet (600 mg total) by mouth 3 (three) times a day. Historical Provider, melatonin 3 mg tablet Take 2 tablets (6 mg total) by mouth at bedtime. Historical Provider, nicotine polacrilex (NICORETTE) [address] 1 each (4 mg total) into mouth between cheek and gum. CHEW 1 GUM BY ORAL ROUTE 1 TIME PER HOUR NEEDED AND DIRECTED Historical Provider, Past Medical History: Medical History[2] Past Surgical History: Surgical History[3] Family History: Family History[4] Social History: Tobacco Use History[5] Social History Substance and Sexual Activity Alcohol Use None Social History Substance and Sexual Activity Drug Use Not on file Review of Systems Constitutional: Negative for chills and fever. Respiratory: Negative for shortness of breath. Gastrointestinal: Negative for abdominal pain, nausea and vomiting. Neurological: Positive for headaches. Negative for tremors. Objective Last Recorded Vitals: Blood pressure 126/81, pulse 79, temperature 36 ??C (96.8 ??F), temperature source Temporal, resp. rate 22, height 1.829 m (72 ), weight 113 kg (250 lb), SpO2 98%. Physical Exam Gen: NAD HEENT: pupils normal, OP clear CV: RRR Pulm: CTA Musc: normal ROM Skin: No rashes or lesions Neuro: Alert and oriented, No tremor Pysch: Anxious appearing Labs: Results for orders placed or performed during the hospital encounter of 08/13/25 Comprehensive Metabolic Panel (CMP) Collection Time: 08/13/25 12:10 PM Result Value Ref Range Sodium 135 133 - 145 mmol/L Potassium 4.0 3.5 - 5.5 mmol/L Chloride 97 96 - 110 mmol/L CO2 27 21 - 32 mmol/L Anion Gap 11 3 - 11 Glucose 77 70 - 100 mg/dL BUN 24 5 - 25 mg/dL Creatinine 0.98 0.70 - 1.30 mg/dL eGFR 99 >=60 mL/min/1.73m2 BUN/Creatinine Ratio 24.5 Calcium 9.0 8.5 - 10.5 mg/dL AST (SGOT) 110 (H) 10 - 42 unit/L ALT (SGPT) 84 (H) 10 - 60 unit/L Alkaline Phosphatase 115 42 - 121 unit/L Total Protein 8.1 (H) 6.0 - 8.0 g/dL Albumin 4.5 3.2 - 5.0 g/dL Total Bilirubin 1.0 0.0 - 1.4 mg/dL Ethanol Collection Time: 08/13/25 12:10 PM Result Value Ref Range Ethanol Level <3 0 - 10 mg/dL Magnesium Collection Time: 08/13/25 12:10 PM Result Value Ref Range Magnesium 1.9 1.9 - 2.6 mg/dL CBC auto differential Collection Time: 08/13/25 12:10 PM Result Value Ref Range WBC 13.1 (H) 4.8 - 10.8 K/mcL RBC 4.60 4.50 - 5.50 M/mcL Hemoglobin 14.2 13.5 - 17.5 g/dL Hematocrit 41.6 (L) 42.0 - 54.0 % MCV 91.4 79.0 - 98.0 FL MCH 31.2 27.0 - 32.0 pcg MCHC 34.1 32.0 - 37.0 g/dL RDW 13.0 11.0 - 15.0 % Platelets 308 130 - 400 K/mcL MPV 9.5 7.0 - 11.0 FL NRBC 0.0 <1.0 % NRBC Absolute 0.00 <0.10 K/mcL Neutrophils Relative 79.1 % Lymphocytes Relative 11.2 % Monocytes Relative 7.6 % Eosinophils Relative 1.2 % Basophils Relative 0.3 % Immature Granulocytes Relative 0.6 % Neutrophils Absolute 10.33 (H) 1.50 - 7.00 K/mcL Lymphocytes Absolute 1.47 1.00 - 5.00 K/mcL Monocytes Absolute 1.00 0.20 - 1.00 K/mcL Eosinophils Absolute 0.16 0.00 - 0.50 K/mcL Basophils Absolute 0.04 0.00 - 0.20 K/mcL Immature Granulocytes Absolute 0.08 (H) 0.00 - 0.03 K/mcL 12-Lead ECG Collection Time: 08/13/25 12:34 PM Result Value Ref Range Ventricular Rate ECG 79 BPM Atrial Rate 79 BPM P-R Interval 138 ms QRS Duration 92 ms Q-T Interval 364 ms QTc 417 ms P Wave [place] 6 degrees R [place] 28 degrees T [place] 43 degrees ECG Interpretation Normal sinus rhythm Normal ECG When compared with ECG of 30-MAY-2025 02:14, No significant change was found Confirmed by RONDA QUINONEZ ([id number]) on 08/13/2025 8:50:02 PM Drug abuse screen 8a panel, urine Collection Time: 08/13/25 1:29 PM Result Value Ref Range Amphetamine Screen, Ur Positive (A) Negative Barbiturate Screen, Ur Positive (A) Negative Benzodiazepine Screen, Ur Negative Negative Cocaine Screen, Ur Positive (A) Negative Opiate Screen, Ur Negative Negative Cannabinoid (THC) Screen, Ur Negative Negative Oxycodone Screen, Ur Negative Negative Fentanyl, Ur Positive (A) Negative Fentanyl urine Collection Time: 08/13/25 1:29 PM Result Value Ref Range Fentanyl, Ur Positive (A) Negative Respiratory virus panel molecular study Collection Time: 08/13/25 7:59 PM Specimen: Nares; Swab Result Value Ref Range Adenovirus Detection by PCR Not Detected Not Detected Influenza A PCR Not Detected Not Detected Influenza B PCR Not Detected Not Detected Coronavirus 229E Not Detected Not Detected Coronavirus HKU1 Not Detected Not Detected Coronavirus OC43 Not Detected Not Detected Coronavirus NL63 Not Detected Not Detected Parainfluenza Virus 1 Not Detected Not Detected Parainfluenza Virus 2 Not Detected Not Detected Parainfluenza Virus 3 Not Detected Not Detected Parainfluenza Virus 4 Not Detected Not Detected RSV PCR Not Detected Not Detected Human Metapneumovirus A and B Not Detected Not Detected Rhinovirus/Enterovirus Not Detected Not Detected Bordetella pertussis Not Detected Not Detected Bordetella parapertussis Not Detected Not Detected Mycoplasma pneumo by PCR Not Detected Not Detected Chlamydia pneumoniae Not Detected Not Detected SARS COV-2 Not Detected Not Detected Basic metabolic panel Collection Time: 08/14/25 5:45 AM Result Value Ref Range Sodium 134 133 - 145 mmol/L Potassium 3.8 3.5 - 5.5 mmol/L Chloride 98 96 - 110 mmol/L CO2 29 21 - 32 mmol/L Anion Gap 7 3 - 11 Glucose 138 (H) 70 - 100 mg/dL BUN 19 5 - 25 mg/dL Creatinine 0.78 0.70 - 1.30 mg/dL eGFR 115 >=60 mL/min/1.73m2 BUN/Creatinine Ratio 24.4 Calcium 8.4 (L) 8.5 - 10.5 mg/dL Magnesium Collection Time: 08/14/25 5:45 AM Result Value Ref Range Magnesium 1.8 (L) 1.9 - 2.6 mg/dL CBC auto differential Collection Time: 08/14/25 5:45 AM Result Value Ref Range WBC 7.1 4.8 - 10.8 K/mcL RBC 4.00 (L) 4.50 - 5.50 M/mcL Hemoglobin 12.5 (L) 13.5 - 17.5 g/dL Hematocrit 36.1 (L) 42.0 - 54.0 % MCV 90.0 79.0 - 98.0 FL MCH 31.2 27.0 - 32.0 pcg MCHC 34.6 32.0 - 37.0 g/dL RDW 13.1 11.0 - 15.0 % Platelets 256 130 - 400 K/mcL MPV 9.5 7.0 - 11.0 FL NRBC 0.0 <1.0 % NRBC Absolute 0.00 <0.10 K/mcL Neutrophils Relative 67.3 % Lymphocytes Relative 18.7 % Monocytes Relative 9.5 % Eosinophils Relative 3.8 % Basophils Relative 0.3 % Immature Granulocytes Relative 0.4 % Neutrophils Absolute 4.80 1.50 - 7.00 K/mcL Lymphocytes Absolute 1.33 1.00 - 5.00 K/mcL Monocytes Absolute 0.68 0.20 - 1.00 K/mcL Eosinophils Absolute 0.27 0.00 - 0.50 K/mcL Basophils Absolute 0.02 0.00 - 0.20 K/mcL Immature Granulocytes Absolute 0.03 0.00 - 0.03 K/mcL Imaging: XR Chest 1 View Narrative: XR CHEST 1 VIEW INDICATION: SOB, pulmonary edema suspected TECHNIQUE: XR CHEST 1 VIEW COMPARISON: None Impression: FINDINGS/IMPRESSION: Hypoventilatory examination with bronchovascular crowding. No consolidation, effusion or CHF. -------- FINAL REPORT -------- Dictated By: Leon Jeronimo Dictated Date: 08/13/2025 16:13 ET Assigned Physician: Leon Jeronimo Reviewed and Electronically Signed By: Leon Jeronimo Signed Date: 08/13/2025 16:14 ET Workstation ID: [id number] Transcribed By: Self Edit Transcribed Date: 08/13/2025 16:13 ET Meds: MEDSSCHEDULED[6] MEDSCONTINUOUS[7] MEDSPRN[8] Assessment and Plan Rey Abad is a 40 y.o. male with a history of alcohol and opioid use disorders admitted formanagement of withdrawal symptoms. Opioid Use Disorder Patient is a good candidate for MOUD Has been on suboxone in the past and would like to restart Start 2 mg SL bup/nal TID Will continue to follow to review options for treatment and offer support Patient would benefit from harm reduction counseling and supplies including fentanyl test strips and Narcan prior to discharge Team will continue to follow and engage with patient. Alcohol Use Disorder Patient received 10mg/kg of ideal body weight IM phenobarbital loading protocol Does not need further doses of phenobarbital Recommend thiamine, folate and multivitamin. Replete electrolytes. Discussed treatment of alcohol use disorder and reviewed medications for alcohol use disorder (ALEKSANDAR) Patient would like [facility] Patient will be given a packet of resources Team will continue to engage with patient and offer support. Thank you for the interesting consultation. Please reach out with any questions or concerns. Principal Problem: Alcohol withdrawal ([facility] V24, [facility] V28) Provider Attestation Electronically signed by Naomi Wheeler DO [1] Allergies Allergen Reactions Penicillins Anaphylaxis [2] History reviewed. No pertinent past medical history. [3] History reviewed. No pertinent surgical history. [4] No family history on file. [5] Social History Tobacco Use Smoking Status Every Day Current packs/day: 2.00 Average packs/day: 2.0 packs/day for 23.9 years (47.9 ttl pk-yrs) Types: Cigarettes Start date: 2001 Smokeless Tobacco Never [6] ARIPiprazole, 5 mg, oral, Daily cloNIDine, 0.1 mg, oral, q8h PEDRO enoxaparin, 40 mg, subcutaneous, Daily folic acid, 1 mg, oral, Daily gabapentin, 300 mg, oral, q8h PEDRO lidocaine, 2 patch, Topical, q24h magnesium sulfate, 2 g, intravenous, Once mirtazapine, 15 mg, oral, Nightly multivitamin, 1 each, oral, Daily nicotine, 1 patch, transdermal, Daily OXcarbazepine, 300 mg, oral, BID pantoprazole, 40 mg, oral, q AM AC PHENobarbitaL, 97.2 mg, oral, BID Followed by [START ON 08/16/2025] PHENobarbitaL, 32.4 mg, oral, BID thiamine, 300 mg, intravenous, q24h [7] [8] PRN medications: acetaminophen, albuterol, hydrOXYzine HCL, nicotine polacrilex, ondansetron, traZODone * Julia Collins NP - 08/13/2025 4:56 PM ESTAssociated Order(s): IP CONSULT TO PSYCHIATRY Psychiatry Initial Intake Mr Abad is a 40 with a reported past medical history significant for Tourette's syndrome, anxiety and depression, alcohol use/abuse with history of withdrawal, polysubstance use/abuse with recent report of using heroin/cocaine who presents emergency department today for an evaluation of wanting detox. Upon arrival to ED patient is arousable to light tactile stimuli. Once patient awakens, he needs tohave frequent verbal and tactile stimulation to stay awake for conversation. Patient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 HEMETOLOGY METHOD 08/13/2025 12:44 PM [facility] MCHC 34.1 32.0 - 37.0 g/dL LAB HEMETOLOGY METHOD 08/13/2025 12:44 PM [facility] RDW 13.0 11.0 - 15.0 % LAB HEMETOLOGY METHOD 08/13/2025 12:44 PM [facility] Platelets 308 130 - 400 K/mcL LAB HEMETOLOGY METHOD 08/13/2025 12:44 PM [facility] MPV 9.5 7.0 - 11.0 FL LAB HEMETOLOGY METHOD 08/13/2025 12:44 PM [facility] NRBC 0.0 <1.0 % LAB HEMETOLOGY METHOD 08/13/2025 12:44 PM [facility] NRBC Absolute 0.00 <0.10 K/[facility] HEMETOLOGY METHOD 08/13/2025 12:44 PM [facility] Neutrophils Relative 79.1 % LAB HEMETOLOGY METHOD 08/13/2025 12:44 PM [facility] Lymphocytes Relative 11.2 % LAB HEMETOLOGY METHOD 08/13/2025 12:44 PM [facility] Monocytes Relative 7.6 % LAB HEMETOLOGY METHOD 08/13/2025 12:44 PM [facility] Eosinophils Relative 1.2 % LAB HEMETOLOGY METHOD 08/13/2025 12:44 PM [facility] Basophils Relative 0.3 % LAB HEMETOLOGY METHOD 08/13/2025 12:44 PM [facility] Immature Granulocytes Relative 0.6 % LAB HEMETOLOGY METHOD 08/13/2025 12:44 PM [facility] Neutrophils Absolute 10.33(H) 1.50 - 7.00 K/[facility] HEMETOLOGY METHOD 08/13/2025 12:44 PM [facility] Lymphocytes Absolute 1.47 1.00 - 5.00 K/[facility] HEMETOLOGY METHOD 08/13/2025 12:44 PM [facility] Monocytes Absolute 1.00 0.20 - 1.00 K/[facility] HEMETOLOGY METHOD 08/13/2025 12:44 PM [facility] Eosinophils Absolute 0.16 0.00 - 0.50 K/[facility] HEMETOLOGY METHOD 08/13/2025 12:44 PM EST [facility] Basophils Absolute 0.04 0.00 - 0.20 K/[facility] HEMETOLOGY METHOD 08/13/2025 12:44 PM EST [facility] Immature Granulocytes Absolute 0.08(H) 0.00 - 0.03 K/[facility] HEMETOLOGY METHOD 08/13/2025 12:44 PM EST [facility] Blood Venous blood specimen / Unknown Venipuncture / Unknown 08/13/2025 12:10 PM EST 08/13/2025 12:29 PM EST Chiki Hammer MD LAB BLOOD ORDERABLES Final Result [facility] [address] [place] [address], * (ABNORMAL) Myoglobin (08/13/2025 12:10 PM EST) Myoglobin 256(H) <=72 ng/mL 08/17/2025 3:47 PM EST [facility] Comment: REFERENCE INTERVAL: Myoglobin Serum Access complete set of age- and/or gender-specific reference intervals for this test in the [facility] Test Directory ([email or web address]). Performed By: [facility] [address] [place] [id number] Title Insurance Examiner: Chiki Osorio MD, PhD CLIA Number: [id number] Blood Venous blood specimen / Unknown Venipuncture / Unknown 08/13/2025 12:10 PM EST 08/13/2025 12:29 PM EST Chiki Hammer MD LAB BLOOD ORDERABLES Final Result [facility] [address] [place] [address] * Magnesium (08/13/2025 12:10 PM EST) Magnesium 1.9 1.9 - 2.6 mg/dL 08/13/2025 1:33 PM EST [facility] Blood Venous blood specimen / Unknown Venipuncture / Unknown 08/13/2025 12:10 PM EST 08/13/2025 12:29 PM EST Chiki Hammer MD LAB BLOOD ORDERABLES Final Result Performing Organization Address [facility]/ZIP Co de Phone Number [facility] [address] [place] [address], [place] [phone] * Ethanol (08/13/2025 12:10 PM EST) [facility] Ethanol Level <3 0 - 10 mg/dL 08/13/2025 1:55 PM EST [facility] Blood Venous blood specimen / Unknown Venipuncture / Unknown 08/13/2025 12:10 PM EST 08/13/2025 12:29 PM EST Chiki Hammer MD LAB BLOOD ORDERABLES Final Result Performing Organization Address [facility] de Phone Number [facility] [address] [place] [address], [place] [phone] * (ABNORMAL) Comprehensive Metabolic Panel (CMP) (08/13/2025 12:10 PM EST) [facility] Sodium 135 133 - 145 mmol/L 08/13/2025 1:33 PM EST [facility] Potassium 4.0 3.5 - 5.5 mmol/L 08/13/2025 1:33 PM EST [facility] Chloride 97 96 - 110 mmol/L 08/13/2025 1:33 PM EST [facility] CO2 27 21 - 32 mmol/L 08/13/2025 1:33 PM EST [facility] Anion Gap 11 3 - 11 08/13/2025 1:33 PM [facility] Glucose 77 70 - 100 mg/dL 08/13/2025 1:33 PM [facility] BUN 24 5 - 25 mg/dL 08/13/2025 1:33 PM [facility] Creatinine 0.98 0.70 - 1.30 mg/dL 08/13/2025 1:33 PM [facility] eGFR 99 >=60 mL/min/1. 73m2 08/13/2025 1:33 PM [facility] Comment:Calculation based on the Chronic Kidney Disease Epidemiology Collaboration (CKD-EPI) equation refit without adjustment for race. BUN/Creatinine Ratio 24.5 08/13/2025 1:33 PM [facility] Calcium 9.0 8.5 - 10.5 mg/dL 08/13/2025 1:33 PM [facility] AST (SGOT) 110(H) 10 - 42 unit/L 08/13/2025 1:33 PM [facility] ALT (SGPT) 84(H) 10 - 60 unit/L 08/13/2025 1:33 PM [facility] Alkaline Phosphatase 115 42 - 121 unit/L 08/13/2025 1:33 PM [facility] Total Protein 8.1(H) 6.0 - 8.0 g/dL 08/13/2025 1:33 PM [facility] Albumin 4.5 3.2 - 5.0 g/dL 08/13/2025 1:33 PM [facility] Total Bilirubin 1.0 0.0 - 1.4 mg/dL 08/13/2025 1:33 PM [facility] Blood Venous blood specimen / Unknown Venipuncture / Unknown 08/13/2025 12:10 PM EST 08/13/2025 12:29 PM EST us Chiki Hammer MD LAB BLOOD ORDERABLES Final Result [facility] [address] [place] [address], * [place] [facility] 30-74 MINUTES (08/13/2025 11:08 AM EST) Narrative Chiki Hammer MD - 08/13/2025 11:08 AM EST Chiki Hammer MD 08/13/2025 2:42 PM Critical Care Performed by: Chiki Hammer MD Authorized by: Chiki Hammer MD Critical care provider statement: Critical care time (minutes): 30 Total face to face critical care time (minutes): 30 Critical care was necessary to treat or prevent imminent or life-threatening deterioration of the following conditions: [place] Critical care was time spent personally by me on the following activities: Re-evaluation of patient's condition and ordering and performing treatments and interventions Face to face critical care was time spent personally by me on the following activities: Ordering and performing treatments and interventions and re-evaluation of patient's condition I assumed direction of critical care for this patient from another provider in my specialty: no Comments: Pt required my immediate attention due to severe etoh w/d with a CIWA of 15 and COWS elevation Phenobarbital withdrawal protocol started in addtion given ativan 2mg IV. 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, CMS/HCC V28) documented in this encounter Admitting Diagnoses Diagnosis Alcohol withdrawal (CMS/HCC V24, CMS/HCC V28) Alcohol withdrawal documented in this encounter Administered Medications Inactive Administered Medications - up to 3 most recent administrations Medication Order MAR Action Action Date Dose Rate Site acetaminophen (TYLENOL) tablet 650 mg 650 mg, oral, Every 6 hours PRN, mild pain, Starting on 08/13/25 at 1433 albuterol 2.5 mg /3 mL (0.083 %) nebulizer solution 2.5 mg 2.5 mg, nebulization, Every 4 hours PRN, wheezing, shortness of breath, Starting on Wed08/13/25 at 1614 ARIPiprazole (ABILIFY) tablet 5 mg 5 mg, oral, Daily, First dose on Wed08/14/25 at 0900 Given 08/14/2025 9:27 AM EST 5 mg buprenorphine-naloxone (SUBOXONE) 2-0.5 mg per SL tablet 1 tablet 1 tablet, sublingual, 3 times daily, First dose on Wed08/14/25 at 1100, - After the medication is completely dissolved, instruct the patient to take a large sip of water, swish it around teeth and gums, and swallow. - Patient should wait at least 1 hour before brushing teeth to avoid damage to their teeth. Given 08/14/2025 11:07 AM EST 1 tablet cloNIDine (CATAPRES) tablet 0.1 mg 0.1 mg, oral, Every 8 hours scheduled, First dose on Wed08/13/25 at 1426, Obtain vital signs prior to administration and document. Hold if SBP <110,HR<55 Given 08/14/2025 6:11 AM EST 0.1 mg Given 08/13/2025 9:31 PM EST 0.1 mg Given 08/13/2025 3:41 PM EST 0.1 mg enoxaparin (LOVENOX) injection 40 mg 40 mg, subcutaneous, Daily, First dose on Wed08/14/25 at 1100, Indication: VTE/PE Prophylaxis Given 08/14/2025 11:07 AM EST 40 mg Right Lower Abdomen folic acid (FOLVITE) tablet 1 mg 1 mg, oral, Daily, First dose on Wed08/13/25 at 1435 Given 08/14/2025 9:27 AM EST 1 mg Given 08/13/2025 3:41 PM EST 1 mg gabapentin (NEURONTIN) capsule 300 mg 300 mg, oral, Every 8 hours scheduled, First dose on Wed08/13/25 at 2200, Obtain vital signs prior to administration and document. Hold if SBP <110,RR<12, Lethargy/Somnolence Given 08/14/2025 6:12 AM EST 300 mg Given 08/13/2025 9:31 PM EST 300 mg hydrOXYzine HCL (ATARAX) tablet 50 mg 50 mg, oral, Every 6 hours PRN, anxiety, Starting on Wed08/13/25 at 1425, Obtain vital signs prior to administration and document. Hold if SBP <110,RR<12, Lethargy/Somnolence Given 08/14/2025 6:12 AM EST 50 mg lidocaine 4 % patch 2 patch 2 patch, Topical, Administer over 24 Hours, Every 24 hours, First dose on Wed08/13/25 at 1918, Apply to right knee. Patch Applied 08/13/2025 9:26 PM EST 2 patches Other LORazepam (ATIVAN) injection 2 mg 2 mg, intravenous, Once, On Wed08/13/25 at 1125, For 1 dose, Prior to IV use, lorazepam injection should be DILUTED with an equal volume of compatible solution; Rate of administration should NOT exceed 2 mg/min. Given 08/13/2025 11:52 AM EST 2 mg magnesium sulfate 2 gram/50 mL (4 %) IVPB 2 g 2 g, intravenous, at 25 mL/hr, Administer over 2 Hours, Once, On Wed08/14/25 at 1100, For 1 dose New Bag 08/14/2025 11:07 AM EST 2 g 25 mL/hr mirtazapine (REMERON) tablet 15 mg 15 mg, oral, Nightly, First dose on Wed08/13/25 at 2100 Given 08/13/2025 9:31 PM EST 15 mg multivitamin tablet 1 tablet 1 tablet (1 each), oral, Daily, First dose on Wed08/13/25 at 1435 Given 08/14/2025 9:27 AM EST 1 tablet Given 08/13/2025 3:43 PM EST 1 tablet nicotine (NICODERM CQ) 21 mg/24 hr patch 1 patch 1 patch, transdermal, Administer over 24 Hours, Daily, First dose on Wed08/13/25 at 1516 Patch Applied 08/14/2025 9:28 AM EST 1 patch R ight Arm Patch Applied 08/13/2025 3:44 PM EST 1 patch Left Arm nicotine polacrilex (NICORETTE) gum 4 mg 4 mg, buccal, Every 1 hour PRN, smoking cessation, Starting on Wed08/13/25 at 1514 ondansetron (PF) (ZOFRAN) injection 4 mg 4 mg, intravenous, Once, On Wed08/13/25 at 1131, For 1 dose Given 08/13/2025 11:53 AM EST 4 mg ondansetron (PF) (ZOFRAN) injection 4 mg 4 mg, intravenous, Every 8 hours PRN, nausea, vomiting, Starting on Wed08/13/25 at 1433 OXcarbazepine (TRILEPTAL) tablet 300 mg 300 mg, oral, 2 times daily, First dose on Wed08/13/25 at 1432, Hazardous Medication Intact: - Single pair of ASTM standard [id number] certified gloves - Eye/face protection if vomit or potential to spit up Manipulated: - Double pair of ASTM standard [id number] certified gloves - Eye/face protection if vomit or potential to spit up - Staff at reproductive risk must also wear a hazardous gown - Crushing must be performed in sealed closed pouch - Splitting/cutting should be performed by pharmacy, if possible Given 08/14/2025 9:27 AM EST 300 mg Given 08/13/2025 9:30 PM EST 300 mg Given 08/13/2025 3:41 PM EST 300 mg pantoprazole (PROTONIX) EC tablet 40 mg 40 mg, oral, Every morning before breakfast, First dose on Wed08/14/25 at 0700, Do not crush, chew, or split. Given 08/14/2025 6:14 AM EST 40 mg PHENobarbital injection 256.1 mg 256.1 mg (rounded from 256.08 mg = 3.3 mg/kg 77.6 kg [place] weight), intravenous, Every 3 hours, First dose (after last modification) on Wed08/13/25 at 1245, For 3 doses Given 08/13/2025 7:37 PM EST 256.1 mg Given 08/13/2025 3:38 PM EST 256.1 mg Given 08/13/2025 12:38 PM EST 256.1 mg PHENobarbitaL tablet 97.2 mg 97.2 mg, oral, 2 times daily, First dose on Wed08/14/25 at 0900, For 4 doses, 100 kg or more Phenobarbital 97.2 mg PO BID x 4 doses 75 - 99.9 kg Phenobarbital 64.8 mg PO BID x 4 doses 50 - 74.95 kg Phenobarbital 48.6 PO BID x 4 doses Below 50 kg Phenobarbital 32.4 mg PO BID x 4 doses Given 08/14/2025 9:27 AM EST 97.2 mg sodium chloride 0.9 % bolus 1,000 mL 1,000 mL, intravenous, at 1,000 mL/hr, Administer over 1 Hours, Once, On Wed08/13/25 at 1125, For 1 dose New Bag 08/13/2025 11:53 AM EST 1,000 mL 1000 mL/hr thiamine (VITAMIN B-1) 300 mg in dextrose 5 % 50 mL IVPB 300 mg, intravenous, at 100 mL/hr, Administer over 30 Minutes, Every 24 hours, First dose on Wed08/14/25 at 1000, For 3 days New Bag 08/14/2025 11:07 AM EST 300 mg 100 mL/hr thiamine (VITAMIN B-1) tablet 100 mg 100 mg, oral, Daily, First dose on Wed08/13/25 at 1435 Given 08/13/2025 3:41 PM EST 100 mg traZODone (DESYREL) tablet 100 mg 100 mg, oral, Nightly PRN, sleep, Starting on Wed08/13/25 at 2100, Obtain vital signs prior to administration and document. Hold if SBP <110,RR<12, Lethargy/Somnolence documented in this encounter Historical Medications * This list may reflect changes made after this encounter. gabapentin (NEURONTIN) 600 mg tablet Take 1 tablet (600 mg total) by mouth 3 (three) times a day. melatonin 3 mg tablet Take 2 tablets (6 mg total) by mouth at bedtime. prazosin (MINIPRESS) 2 mg capsule Take 1 capsule (2 mg total) by mouth daily. 02/08/2025 pantoprazole (PROTONIX) 40 mg EC tablet Take 1 tablet (40 mg total) by mouth 1 (one) time each day before breakfast. 04/12/2025 nicotine polacrilex (NICORETTE) [address] 1 each (4 mg total) into mouth between cheek and gum. CHEW 1 GUM BY ORAL ROUTE 1 TIME PER HOUR NEEDED AND DIRECTED nicotine (NICODERM CQ) 21 mg/[address] 1 patch on the skin daily. 02/09/2025 naproxen (NAPROSYN) 500 mg tablet Take 1 tablet (500 mg total) by mouth 2 (two) times a day with meals. 09/27/2024 mirtazapine (REMERON) 15 mg tablet Take 1 tablet (15 mg total) by mouth at bedtime. 03/21/2025 lisinopriL (PRINIVIL,ZESTRI L) 5 mg tablet Take 1 tablet (5 mg total) by mouth 1 (one) time each day. take 1 tablet by mouth every day for hypertension 04/12/2025 lidocaine 4 % patch Place 2 patches on the skin 1 (one) time each day at the same time. APPLY 2 PATCHES DAILY FOR RIGHT KNEE PAIN 02/09/2025 hydrOXYzine pamoate (VISTARIL) 25 mg capsule Take 1-2 capsules (25-50 mg total) by mouth every 4 (four) hours if needed for anxiety. TAKE 1 TO 2 CAPSULES BY MOUTH EVERY 4 HOURS NEEDED 07/26/2025 cloNIDine (CATAPRES) 0.1 mg tablet Take 1 tablet (0.1 mg total) by mouth 3 (three) times a day if needed. 07/26/2025 buPROPion XL (WELLBUTRIN XL) 300 mg 24 hr tablet Take 1 tablet (300 mg total) by mouth daily. ARIPiprazole (ABILIFY) 5 mg tablet Take 1 tablet (5 mg total) by mouth daily. OXcarbazepine (TRILEPTAL) 300 mg tablet Take 1 tablet (300 mg total) by mouth 2 (two) times a day. 07/26/2025 added in this encounter Active and Recently Administered Medications Times are shown in EST. Scheduled Medication Order 08/12/2025 08/13/2025 08/14/2025 ARIPiprazole (ABILIFY) tablet 5 mg 5 mg, oral, Daily, First dose on Wed08/14/25 at 0900 0927 (Given - Provid er: Tamra Yee RN) buprenorphine-naloxone (SUBOXONE) 2-0.5 mg per SL tablet 1 tablet 1 tablet, sublingual, 3 times daily, First dose on Wed08/14/25 at 1100, - After the medication is completely dissolved, instruct the patient to take a large sip of water, swish it around teeth and gums, and swallow. - Patient should wait at least 1 hour before brushing teeth to avoid damage to their teeth. 1107 (Given - Provid er: Tamra Joselito, RN)1400 (Canceled Entry - Provider: Automatic Discharge Provider - Comment: Automatically canceled at discontinue of medication order) cloNIDine (CATAPRES) tablet 0.1 mg 0.1 mg, oral, Every 8 hours scheduled, First dose on Wed08/13/25 at 1426, Obtain vital signs prior to administration and document. Hold if SBP <110,HR<55 1541 (Given - Provider: Salma Mancuso RN)2131 (Given - Provider: Corrie Rizvi RN) 0611 (Given - Provider: Corrie Rizvi RN)1400 (Canceled Entry - Provider: Automatic Discharge Provider - Comment: Automatically canceled at discontinue of medication order) enoxaparin (LOVENOX) injection 40 mg 40 mg, subcutaneous, Daily, First dose on Wed08/14/25 at 1100, Indication: VTE/PE Prophylaxis 1107 (Given - Provid er: Tamra Yee RN) folic acid (FOLVITE) tablet 1 mg 1 mg, oral, Daily, First dose on Wed08/13/25 at 1435 1541 (Given - Provider: Salma Mancuso RN) 0927 (Given - Provider: Tamra Yee RN) gabapentin (NEURONTIN) capsule 300 mg 300 mg, oral, Every 8 hours scheduled, First dose on Wed08/13/25 at 2200, Obtain vital signs prior to administration and document. Hold if SBP <110,RR<12, Lethargy/Somnolence 213 (Given - Provider: Corrie Rizvi RN) 0612 (Given - Provider: Corrie Rizvi RN)1400 (Canceled Entry - Provider: Automatic Discharge Provider - Comment: Automatically canceled at discontinue of medication order) lidocaine 4 % patch 2 patch 2 patch, Topical, Administer over 24 Hours, Every 24 hours, First dose on Wed08/13/25 at 1918, Apply to right knee. 2125 (Patch Applied - Provider: Corrie Rizvi RN - Comment: left knee) 1239 (Due: Patch Removed - Provider: Automatic Discharge Provider - Comment: Time automatically adjusted from order being discontinued) LORazepam (ATIVAN) injection 2 mg (COMPLETED) 2 mg, intravenous, Once, On Wed08/13/25 at 1125, For 1 dose, Prior to IV use, lorazepam injection should be DILUTED with an equal volume of compatible solution; Rate of administration should NOT exceed 2 mg/min. 1152 (Given - Provider: Salma Mancuso RN) magnesium sulfate 2 gram/50 mL (4 %) IVPB 2 g (COMPLETED) 2 g, intravenous, at 25 mL/hr, Administer over 2 Hours, Once, On Wed08/14/25 at 1100, For 1 dose 1107 (New Bag - Prov ider: Tamra Yee RN)1208 (Stopped - Provider: Renetta Dueñas RN) mirtazapine (REMERON) tablet 15 mg 15 mg, oral, Nightly, First dose on Wed08/13/25 at 2100 2131 (Given - Provider: Corrie Rizvi, TRUDY) multivitamin tablet 1 tablet 1 tablet (1 each), oral, Daily, First dose on Wed08/13/25 at 1435 1543 (Given - Provider: Salma Mancuso RN) 0927 (Given - Provider: Tamra Yee, TRUDY) nicotine (NICODERM CQ) 21 mg/24 hr patch 1 patch 1 patch, transdermal, Administer over 24 Hours, Daily, First dose on Wed08/13/25 at 1516 1544 (Patch Applied - Provider: Salma Mancuso RN) 0927 (Patch Removed - Provider: Tamra Yee RN)0928 (Patch Applied - Provider: Tamra Yee RN)1239 (Due: Patch Removed - Provider: Automatic Discharge Provider - Comment: Time automatically adjusted from order being discontinued) ondansetron (PF) (ZOFRAN) injection 4 mg (COMPLETED) 4 mg, intravenous, Once, On Wed08/13/25 at 1131, For 1 dose 1153 (Given - Provider: Salma Mancuso RN) OXcarbazepine (TRILEPTAL) tablet 300 mg 300 mg, oral, 2 times daily, First dose on Wed08/13/25 at 1432, Hazardous Medication Intact: - Single pair of ASTM standard [id number] certified gloves - Eye/face protection if vomit or potential to spit up Manipulated: - Double pair of ASTM standard [id number] certified gloves - Eye/face protection if vomit or potential to spit up - Staff at reproductive risk must also wear a hazardous gown - Crushing must be performed in sealed closed pouch - Splitting/cutting should be performed by pharmacy, if possible 1541 (Given - Provider: Salma Mancuso RN)2130 (Given - Provider: Corrie Rizvi RN) 0927 (Given - Provider: Tamra Yee RN) pantoprazole (PROTONIX) EC tablet 40 mg 40 mg, oral, Every morning before breakfast, First dose on Wed08/14/25 at 0700, Do not crush, chew, or split. 0614 (Given - Provid er: Corrie Rizvi RN) PHENobarbital injection 256.1 mg (COMPLETED) 256.1 mg (rounded from 256.08 mg = 3.3 mg/kg 77.6 kg [place] weight), intravenous, Every 3 hours, First dose (after last modification) on Wed08/13/25 at 1245, For 3 doses 1238 (Given - Provider: Salma Mancuso RN)1538 (Given - Provider: Salma Mancuso RN)1937 (Given - Provider: Renetta Dueñas RN) PHENobarbitaL tablet 97.2 mg (CANCELED)(Linked Group 1) 97.2 mg, oral, 2 times daily, First dose on Wed08/14/25 at 0900, For 4 doses, 100 kg or more Phenobarbital 97.2 mg PO BID x 4 doses 75 - 99.9 kg Phenobarbital 64.8 mg PO BID x 4 doses 50 - 74.95 kg Phenobarbital 48.6 PO BID x 4 doses Below 50 kg Phenobarbital 32.4 mg PO BID x 4 doses 0927 (Given - Provid er: Tamra Yee RN) sodium chloride 0.9 % bolus 1,000 mL (COMPLETED) 1,000 mL, intravenous, at 1,000 mL/hr, Administer over 1 Hours, Once, On Wed08/13/25 at 1125, For 1 dose 1153 (New Bag - Provider: Salma Mancuso RN)1430 (Stopped - Provider: Salma Mancuso RN) thiamine (VITAMIN B-1) 300 mg in dextrose 5 % 50 mL IVPB 300 mg, intravenous, at 100 mL/hr, Administer over 30 Minutes, Every 24 hours, First dose on Wed08/14/25 at 1000, For 3 days 1107 (New Bag - Prov ider: Tamra Yee RN - Comment: Addiction Provider in with patient)1208 (Stopped - Provider: Renetta Dueñas RN) thiamine (VITAMIN B-1) tablet 100 mg (CANCELED) 100 mg, oral, Daily, First dose on Wed08/13/25 at 1435 1541 (Given - Provider: Salma Mancuso RN) PRN Medication Order 08/12/2025 08/13/2025 08/14/2025 acetaminophen (TYLENOL) tablet 650 mg 650 mg, oral, Every 6 hours PRN, mild pain, Starting on Wed08/13/25 at 1433 albuterol 2.5 mg /3 mL (0.083 %) nebulizer solution 2.5 mg 2.5 mg, nebulization, Every 4 hours PRN, wheezing, shortness of breath, Starting on Wed08/13/25 at 1614 hydrOXYzine HCL (ATARAX) tablet 50 mg 50 mg, oral, Every 6 hours PRN, anxiety, Starting on Wed08/13/25 at 1425, Obtain vital signs prior to administration and document. Hold if SBP <110,RR<12, Lethargy/Somnolence 0612 (Given - Provid er: Corrie Rizvi RN) nicotine polacrilex (NICORETTE) gum 4 mg 4 mg, buccal, Every 1 hour PRN, smoking cessation, Starting on Wed08/13/25 at 1514 ondansetron (PF) (ZOFRAN) injection 4 mg 4 mg, intravenous, Every 8 hours PRN, nausea, vomiting, Starting on Wed08/13/25 at 1433 traZODone (DESYREL) tablet 100 mg 100 mg, oral, Nightly PRN, sleep, Starting on Wed08/13/25 at 2100, Obtain vital signs prior to administration and document. Hold if SBP <110,RR<12, Lethargy/Somnolence Linked Groups Order Group 1: PHENobarbitaL tablet 97.2 mg (CANCELED)Jump to med 97.2 mg, oral, 2 times daily, First dose on Wed08/14/25 at 0900, For 4 doses, 100 kg or more Phenobarbital 97.2 mg PO BID x 4 doses 75 - 99.9 kg Phenobarbital 64.8 mg PO BID x 4 doses 50 - 74.95 kg Phenobarbital 48.6 PO BID x 4 doses Below 50 kg Phenobarbital 32.4 mg PO BID x 4 doses Followed by PHENobarbitaL tablet 32.4 mg (CANCELED) 32.4 mg, oral, 2 times daily, First dose on Alejandra 08/16/25 at 0900, For 4 doses, > = 75 kg Phenobarbital 32.4 mg PO BID x 4 doses < 75 kg Phenobarbital 16.2 mg PO BID x 4 doses documented in this encounter Orders Medications Ordered That Bartolome ht Not Have Been Administered Count Last Ordered Date First Ordered Date acetaminophen (TYLENOL) tablet 650 mg 1 04/2025 albuterol 2.5 mg /3 mL (0.08 3 %) nebulizer solution 2.5 mg 1 08/13/2025 enoxaparin (LOVENOX) injection 40 mg 1 04/2025 nicotine polacrilex (NICORETTE) gum 4 mg 1 08/13/2025 ondansetron (PF) (ZOFRAN) injection 4 mg 1 08/13/2025 PHENobarbital injection 256.1 mg 1 08/13/20 PHENobarbitaL tablet 32.4 mg 1 08/13/2025 traZODone (DESYREL) tablet 100 mg 1 025 Consult Count Last Ordered Date First Orde red Date IP CONSULT TO ADDICTION MEDICINE 1 08/13/20 IP CONSULT TO PSYCHIATRY 1 08/13/2025 IP CONSULT TO SOCIAL WORK 1 08/13/2025 Admission Count Last Ordered Date First Orde red Date ADMIT TO INPATIENT 1 08/13/2025 documented in this encounter Additional Health Concerns Infection Onset Date Last Indicated Resolved Time Respiratory Rule-Out 08/13/2025 08/13/2025 025 9:21 PM EST documented as of this encounter Care Teams Process Development Chemist Relationship Specialty Start Date End Date Physician, No Pcp PCP - General 05/30/25 documented as of this encounter
[2025-08-19 12:24] VITALS: BP 148/89; PULSE 98; RESP 22; TEMP 36.2; O2SAT 96; BMI 32.9
--- NOTE | 2025-08-19 12:24 | ED_ITS ---
HPI - General Adult General Chief complaint: ETOH/Substance Use Stated complaint: detox Time Seen by Provider: 08/19/25 12:41 Source: patient Mode of arrival: ambulatory Limitations: no limitations History of Present Illness ED Provider: JACKELIN Guevara HPI narrative: Chief Complaint: Detox. History of Present Illness: The patient presents requesting alcohol detoxification. He reports consuming approximately a liter of liquor and a 12-pack of beer daily. He has a history of alcohol-withdrawal seizures and one prior episode of delirium tremens. Current symptoms began today and include a ?massive headache,? nausea with one episode of vomiting, tremulousness, palpitations (?heart's tapping away?), and mild diaphoresis. He denies fever or chills. He denies current asthma symptoms. He endorses past intravenous drug use. No other complaints were voiced during today?s encounter. Related Data Previous Rx's ?Medication ?Instructions ?Recorded aripiprazole 5 mg tablet (Abilify) 5 mg PO DAILY 30 da ys #30 tabs 06/27/25 gabapentin 300 mg capsule 600 mg (2 x 300 mg) PO TID 3 0 days 06/27/25 #180 caps hydroxyzine HCl 25 mg tablet 25 mg PO TID PRN mild anx iety 30 06/27/25 days #90 tabs nicotine 21 mg/24 hr daily 21 mg transdermal DAILY PRN 06/27/25 transdermal patch smoking cessation 28 days #2 8 ea trazodone 50 mg tablet 50 mg PO BEDTIME PRN Insomni a 30 06/27/25 days #30 tabs prazosin 2 mg capsule 2 mg PO BEDTIME 30 days #30 caps 06/28/25 Allergies Allergy/AdvReac Type Severity Reaction Status Date / Time amoxicillin (AMOXICILLIN) Allergy Unknown HIVES Verified 08/19/25 12:29 Review of Systems 2 Review of Systems: Yes all other systems are reviewed and are negative PMFSH Past Medical History Attestation statement: The following information was validated with the patient. Source: old records reviewed and nursing notes reviewed Medical History Anxious depression Suicide attempt Substance use disorder Depression Polysubstance use disorder Hypertension Bipolar 2 disorder, major depressive episode TBI (traumatic brain injury) PTSD (post-traumatic stress disorder) Surgical History History of mandibular surgery Family History Family History Other No pertinent family history Social History Social History Household Members: Other Household Members Other:: Lives at ex- sister's house. Housing: House Housing Other:: Sober house Do you presently have visiting nurse or other home services: No Alcohol intake: current Alcohol intake frequency: 3 or more drinks per day Alcohol type: beer and hard liquor Comment: 1:1 in room Patient Tobacco Use Status: Current everyday Tobacco user Tobacco use type: Cigarette Cigarette Packs Per Day: 1.5 Cigarettes Per Day: 30.0 Years Smoked: 28 Smoked in Last 30 Days: Yes e-Cigarette/Vaping Use: Former Use Second Hand Smoke Exposure: Yes Use of substances other than those prescribed or required for medical reasons: No Substance Use Type: Crack/Cocaine, Heroin, IV Drugs and Other Advance Directives: No Advance Directives Information Provided: Yes service: No Sexual orientation: Straight/Heterosexual Physical Exam ED Exam Exam: Appearance: Alert.? Oriented X3.? No acute distress.? Head: Normocephalic, atraumatic, no step-offs or deformities Eyes: Pupils equal, round and reactive to light.? ENT: Pharynx normal.??External ears normal, TMs normal bilaterally and EAC's normal. No pain with manipulation of external ears bilaterally. No mastoid tenderness. Neck: Normal inspection.? Neck supple.? CVS: Normal heart rate and rhythm.? Pulses normal.? Respiratory: No respiratory distress.? Breath sounds normal.? Abdomen: Soft and nontender.? Skin: Skin warm and dry.? Normal skin color.? Normal skin turgor.? Extremities: No lower extremity edema.? No calf ttp. 5/5 strength to bilateral upper and lower extremities Back: No midline tenderness, no C-spine tenderness, full range of motion, no CVA tenderness bilaterally Neuro: Oriented X 3.? No motor deficit.? No sensory deficit. CN 2-12 intact Vital Signs: Vital Signs - 24 hr 08/19/25 12:24 08/19/25 13:00 08/19/25 14:18 Temperature 97.1 F Pulse Rate 98 85 86 Respiratory Rate 22 H 10 L 15 Blood Pressure 148/89 H 123/102 H 147/82 H Pulse Oximetry 96 97 98 Oxygen Delivery Method Room Air Room Air Room Air BMI result Body Mass Index 32.9 vss Course Course Course Narrative: This is a Rapid Medical Examination (RME) performed by Karolyn Gallardo PA-C in triage. Full HPI, ROS, assessment and treatment plan per primary provider in the Main ED. Hx: 40 yo M hx bipolar disorder, PTSD, TBI, polysubstance use disorder and depression here requesting detox from alcohol. last drink yesterday around 1200. typically drinks 12 pack of beer and L of vidka daily. denies SI/HI. reports hx etoh withdrawal seizures and DT. Plan: Reevaluation(s) Reevaluation #1: CBC with a normocytic anemia. Chemistry unremarkable. Urine toxicology pending. Ethanol 11. Plan hospital admission for alcohol withdrawal Time: 14:41 Reevaluation #2: Patient accepted by the hospitalist. Time: 14:58 Medications Administered Discontinued Medications Generic Name Dose Route Start Last Admin Trade Name Samra PRN Reason Stop Dose Admin Diazepam 2.5 mg 08/19/25 13:08 08/19/25 14:15 Diazepam 10 Mg/2 Ml Cartridge IVPUSH 08/19/25 13:09 Not Given STAT STA Lorazepam 2 mg 08/19/25 13:35 08/19/25 13:53 Lorazepam 1 Mg Tablet PO 08/19/25 13:36 2 mg ONCE ONE Administration Phenobarbital Sodium 466 mg 08/19/25 14:00 08/19/25 13:54 Phenobarbital Sodium 130 Mg/Ml Im Once IM 08/19/25 14:01 466 mg ONCE ONE Administration Protocol Medical Decision Making Medical Decision Making [facility] Narrative: The patient is a male presenting with symptoms consistent with acute alcohol withdrawal. He has a significant history of withdrawal seizures and one prior episode of delirium tremens, placing him at high risk for severe withdrawal. Problem #1: Alcohol withdrawal Assessment: High-risk alcohol withdrawal given history of seizures/DTs and current objective tremors, tachycardia, diaphoresis, headache, nausea, and vomiting. Plan: * Benzodiazepine administration for acute symptom control (ordered). * Initiate phenobarbital per protocol (ordered). * Establish IV access; ultrasound guidance if needed. * Monitor vital signs and withdrawal symptoms closely. Problem #2: Headache, nausea/vomiting Assessment: Likely secondary to alcohol withdrawal. Plan: * Symptomatic treatment as needed (anti-emetics, analgesics) ? to be ordered based on clinical status. Problem #3: History of past IV drug use Assessment: Patient reports history of intravenous drug use. No acute complications or withdrawal symptoms from other substances reported at this time. Plan: * Monitor for signs of infection or withdrawal from other substances during ED stay. Follow-up: Reassess response to medications and withdrawal symptoms in the ED; escalate care if severe withdrawal develops. Differential Diagnosis Differential Diagnoses: The differential diagnosis associated with the presentation includes * Alcohol withdrawal syndrome (most likely): Patient has a history of heavy alcohol use, prior withdrawal seizures, and delirium tremens, with current symptoms of tremors, tachycardia, diaphoresis, headache, nausea, and vomiting, all classic for alcohol withdrawal. * Other substance withdrawal (e.g., benzodiazepines, opioids): History of IV drug use raises concern for possible withdrawal from other substances, which can present with overlapping symptoms such as tremors, diaphoresis, and autonomic instability. * Acute intoxication (alcohol or other substances): Acute symptoms could be due to recent intoxication with alcohol or other drugs, especially given the history of polysubstance use. * PLUMBING INSTRUCTOR infection (e.g., meningitis, encephalitis): Headache, nausea, vomiting, and altered mental status (if present) could suggest PLUMBING INSTRUCTOR infection, particularly in a patient with IV drug use history, though fever and neck stiffness are not reported. * Metabolic derangement (e.g., hypoglycemia, electrolyte abnormalities): Nausea, vomiting, headache, and tremors may be due to metabolic disturbances, which are common in patients with heavy alcohol use and poor nutritional status. * Sepsis: IV drug use history increases risk for systemic infection; symptoms such as tachycardia, diaphoresis, and malaise could be early signs, though no fever or chills are reported. * Primary headache disorder: Headache could be due to a primary headache disorder, but the context and associated symptoms make this less likely. Admission/Observation Consideration of admission/observation: Escalation of care including admission/observation considered Consult Healthcare Provider Management of the patient was discussed with: Hospitalist Lab Data MDM Lab Attestation statement: I reviewed the patient's lab results. 08/19/25 14:15 08/19/25 14:15 Labs: Lab Results 12/14/25 Range/Units 14:15 WBC 10.7 (4.8-10.8) X10*3/uL RBC 4.31 L (4.60-5.80) X10*6/uL Hgb 13.4 L (14.0-18.0) g/dl Hct 38.3 L (42.0-52.0) % MCV 88.9 (80.0-98.0) fL MCH 31.1 (27.0-33.0) pg MCHC 35.0 (31.0-36.0) g/dl RDW 12.7 (11.0-16.0) % Plt Count 348 (160-400) X10*3/uL MPV 8.8 L (9.4-12.4) fL Immature Gran % (Auto) 0.6 H (0.0-0.4) % Neut % (Auto) 74.2 H (45-73) % Lymph % (Auto) 16.2 L (20-40) % [place] % (Auto) 7.0 (2-11) % Eos % (Auto) 1.6 (0-4) % Baso % (Auto) 0.4 (0-2) % Lymph # (Auto) 1.7 (1.2-4.9) X10*3/uL [place] # (Auto) 0.8 (0.1-1.2) X10*3/uL Eos # (Auto) 0.2 (0.0-0.4) X10*3/uL Baso # (Auto) 0.0 (0.0-0.2) X10*3/uL Abs Immat Gran (auto) 0.06 H (0.00-0.03) X10*3/uL Absolute Neuts (auto) 8.0 (2.0-8.3) x10*3/uL Absolute Nucleated RBC 0.000 (0.0-0.012) X10*3/uL Nucleated RBC % (auto) 0.0 (0.0-0.2) /100WBC Sodium 135 (135-145) mmol/L Potassium 4.2 (3.3-5.1) mmol/L Chloride 101 (96-108) mmol/L Carbon Dioxide 25 (22-29) mmol/L Anion Gap 13 (12-20) BUN 17 H (9-16) mg/dL Creatinine 0.77 (0.5-1.4) mg/dL Estim Creat Clear Calc 161.7 Estimated GFR > 60 Random Glucose 100 (60-115) mg/dL Calcium 8.9 (8.4-10.2) mg/dL Magnesium 2.0 (1.6-2.6) mg/dL Total Bilirubin 0.8 (0.0-1.0) mg/dL AST 70 H (5-37) U/L ALT 83 H (0-40) U/L Alkaline Phosphatase 104 (39-117) U/L Total Protein 7.7 (6.5-8.0) g/dL Albumin 4.3 (3.5-5.0) g/dL Lipase 6 L (8-78) U/L Salicylates < 5.0 L (15-30) mg/dL Acetaminophen < 3 (<30) mcg/mL Ethyl Alcohol 11 mg/dL External Record Review External record reviewed: Inpatient record, Office record, Outpatient record, Prior outpatient radiology, Primary care record and Outside ED record Chronic Conditions Patient?s care impacted by: Other Alcohol use disorder, opiate use disorder, cocaine use disorder, history of IVDA, bipolar 2, PTSD, TBI Critical Care Time Critical Care Time Critical Care Time: Yes Total Critical Care Time: 35 Attestation: I attest to this time spent taking care of the patient, obtaining history, physical, reviewing labs, imaging, treatment of patients condition +/- specialist/hospitalist consult +/- procedure Discharge Plan Discharge Clinical Impression: Cocaine use disorder, Opioid use disorder, moderate, dependence, Alcohol use disorder Prescriptions: No Action nicotine 21 mg/24 hr Patch 24 Hour 21 mg transdermal DAILY PRN (Reason: smoking cessation) 28 Days Qty: 28 0RF Rx Instructions: remove at bedtime aripiprazole [Abilify] 5 mg Tablet 5 mg PO DAILY 30 Days Qty: 30 0RF gabapentin 300 mg Capsule 600 mg PO TID 30 Days Qty: 180 0RF trazodone 50 mg Tablet 50 mg PO BEDTIME PRN (Reason: Insomnia) 30 Days Qty: 30 0RF hydroxyzine HCl 25 mg tablet 25 mg PO TID PRN (Reason: mild anxiety) 30 Days Qty: 90 0RF prazosin 2 mg capsule 2 mg PO BEDTIME 30 Days Qty: 30 0RF Print Language: Mongolian
--- NOTE | 2025-08-19 12:32 | ECG_ITS ---
Test Reason : withdrawl Blood Pressure : */* mmHG Vent. Rate : 88 BPM Atrial Rate : 88 BPM P-R Int : 132 ms QRS Dur : 92 ms QT Int : 356 ms P-R-T Axes : 80 53 62 degrees QTcB Int : 430 ms Normal sinus rhythm Possible Left atrial enlargement Borderline ECG When compared with ECG of 18-Jul-2025 09:20, No significant change was found Referred By: Klaudia Gallardo Electronically Signed By: Akin Venegas
[2025-08-19 13:00] VITALS: BP 123/102; PULSE 85; RESP 10; O2SAT 97
--- OUTSIDE RECORDS SUMMARY | 2025-08-19 13:35 | XMS_ITS | Clinical Summary ---
Author Organization [employer] Address [address] [place] [address] Care Team Providers Care Digester Operator Name Role Phone Unavailable Primary Care [...] patient's age to complete this topic [facility]
--- OUTSIDE RECORDS SUMMARY | 2025-08-19 13:37 | XMS_ITS | Patient Health Record ---
Author Organization [facility] Address [address] [place] [address] Care Team Providers Care Surgical Supply Assistant Name Role Phone Milo Joshi Primary Care Provider Melanie Monge Unavailable [phone] [facility], Nursing Unavailable [phone] Chela Torres Unavailable [phone] [facility], CHW Unavailable [phone] Migration, Provider Unavailable Unavailable Allergies Allergen (clinical [...] ALKALINE PHOSPHATASE 102 AST 48 ALT 67 COMPREHENSIVE METABOLIC PANE [facility] Reviewed date:07/20/2025 11:33:00 AM Interpretation:AST/ALT Performing Lab: Notes/Report: AST/ALT GLUCOSE 101 UREA NITROGEN (BUN) 14 CREATININE 0.8 SODIUM 138 POTASSIUM 3.8 CHLORIDE 106 CARBON DIOXIDE 24 CALCIUM 9.3 PROTEIN, TOTAL 7.8 ALBUMIN 4.2 BILIRUBIN, TOTAL 0.4 ALKALINE PHOSPHATASE 94 AST 58 ALT 67 Reason For Referral Reason Spine an d Sport [facility] patient with right lumbar radiuculitis who is s/p two spinal surgeries 10 years ago. Did reasonably well with epidurals and wants to avoid surgery Diagnosis 1 Radiculopathy, lumba r region (M54.16) Referral Organization [facility] Referring Provider First Name Milo Referring Provider Last Name Madelyn Referring Provider Speciality Internal M edicine Referred Organization [facility] Referred Provider Tsering Leo S sonia Referred Address [address] [place] [address],[place], [id number] Referred Provider Specialty Physical Med icine and Rehabilitation General Notes SanchoAracelisCass 09/15/2024 02:49:56 PM > Faxed to spine and sport in [facility], [id number] x 12 visits Clinical Notes Referral # [id number] D Referral Priority Routine Medications Medication SIG [...] review and pick correct strength-formulat ion from [employer] options. If intended option is not shown, [...] A IM Intramuscular 07/06/2018 Administered ND 5 [id number] Influenza IM Intramuscular 07/06/2018 Administered NDC 49 [id number] Hepatitis B (20 or more) IM Intramuscular 09/22/2019 Administered Influenza IM Intramuscular 10/02/2019 Administered [facility] 49 [id number] Influenza Unknown 05/29/2016 Administered Td Unknown 11/07/2008 [...] CSP x 3 months re ferral from [facility] An[facility]udh [phone] CHD Worker CSP x 3 [facility] [phone] CHD Worker CSP x 3 months re ferral from [facility] Anirudh [phone] CHD Worker CSP x 3 months re ferral from [facility] Anirudh [phone] CHD Worker CSP x 3 months re ferral from [facility] Anirudh [phone] CHD Worker CSP x 3 months re ferral from [facility] Anirudh [phone] CHD Worker CSP x 3 months re ferral from [facility] Anirudh [phone] CHD Worker CSP x 3 months re ferral from [facility] Anirudh [phone] CHD Worker CSP x 3 months re ferral from [facility]ud[facility] [phone] CHD Worker CSP x 3 months re ferral from [facility] [phone] CHD Worker CSP x 3 months re ferral from [facility] [phone] CHD Worker CSP x 3 months re ferral from [facility] Anirud[facility] [phone] CHD Worker CSP x 3 months re ferral from [facility] Anirudh [phone] CHD Worker CSP x 3 months re ferral from [facility] Anirudh [phone] CHD Worker CSP x 3 months re ferral from [facility] Anirudh [phone] CHD Worker CSP x 3 months re ferral from [facility] Anirudh [phone] CHD Worker CSP x 3 months re ferral from [facility] Anirudh [phone] CHD Worker CSP x 3 months re ferral from [facility] Anirudh [phone] CHD Worker CSP x 3 months re ferral from [facility] Anirudh [phone] CHD Worker CSP x 3 months re ferral from [facility] Anirudh [phone] CHD Worker CSP x 3 months re ferral from [facility] Anirudh [phone] CHD Worker CSP x 3 months re ferral from [facility] Anirudh [phone] CHD Worker CSP x 3 months re ferral from [facility] Anirudh [phone] CHD Worker CSP x 3 months re ferral from [facility] Anirudh [phone] CHD Worker CSP x 3 months re ferral from [facility] Anirudh [phone] CHD Worker CSP x 3 months re ferral from [facility] Anirudh [phone] CHD Worker CSP x 3 months re ferral from [facility] Anirudh [phone] CHD Worker CSP x 3 months re ferral from [facility] Anirudh [phone] CHD Worker CSP x 3 months re ferral from [facility] Anirud[facility] [phone] CHD Worker CSP x 3 months re ferral from [facility] Anirudh [phone] CHD Worker CSP x 3 months re ferral from [facility] Anirudh [phone] CHD Worker CSP x 3 months re ferral from [facility] Anirudh [phone] CHD Worker CSP x 3 months re ferral from [facility] Anirudh [phone] CHD Worker CSP x 3 months re ferral from [facility] Anirudh [phone] CHD Worker CSP x 3 months re ferral from [facility] Anirudh [phone] CHD Worker CSP x 3 months re ferral from [facility] Anirudh [phone] CHD Worker CSP x 3 months re ferral from [facility] Anirudh [phone] CHD Worker CSP x 3 months re ferral from [facility] Anirudh [phone] CHD Worker CSP x 3 months re ferral from [facility] Anirudh [phone] CHD Worker CSP x 3 months re ferral from [facility] Anirudh [phone] CHD Worker CSP x 3 months re ferral from [facility] An[facility] [phone] CHD Worker CSP x 3 months re ferral from [facility] Anirudh [phone] Problems Problem Type SNOMED Code ICD Code Onset Dates Problem Status W/U Status Risk Notes Problem Chronic hepatitis C (599290635) Chronic viral hepatitis C (B18.2) Active confirmed Problem Obesity (363609624) Obesity, unspecified (E66.9) Active confirmed Problem Alcohol abuse (08017220) Alcohol abuse, uncomplicated (F10.10) Active confirmed Problem Opioid abuse (5973382) Opioid abuse, uncomplicated (F11.10) Active confirmed Problem Tobacco user (998027467) Nicotine dependence, cigarettes, uncomplicated (F17.210) Active confirmed Problem Psychoactive substance abuse (41430842) Other psychoactive substance abuse, uncomplicated (F19.10) Active confirmed Problem Bipolar affective disorder, currently depressed, mild (983713826) Bipolar disorder, current episode depressed, mild (F31.31) Active confirmed Problem Bipolar affective disorder, currently depressed, moderate (442576305) Bipolar disorder, current episode depressed, moderate (F31.32) Active confirmed Problem Bipolar disorder (94621508) Bipolar disorder, unspecified (F31.9) Active confirmed Problem Anxiety disorder (541946227) Anxiety disorder, unspecified (F41.9) Active confirmed Problem Posttraumatic stress disorder (02114740) Post-traumatic stress disorder, chronic (F43.12) Active confirmed Problem Insomnia disorder related to another mental disorder (42510212) Insomnia due to other mental disorder (F51.05) Active confirmed Problem Essential hypertension (84770961) Essential (primary) hypertension (I10) Active confirmed Problem Uncomplicated moderate persistent asthma (419375665) Moderate persistent asthma, uncomplicated (J45.40) Active confirmed Problem Gastro-esophageal reflux disease without esophagitis (208221285) Gastro-esophagea l reflux disease without esophagitis (K21.9) Active confirmed Problem Lumbar radiculopathy (655673388) Radiculopathy, lumbar region (M54.16) Active confirmed Problem Nondependent cocaine abuse in remission (586100768) Cocaine abuse, in remission (F14.11) Active confirmed Problem Body mass index 35.00 to 39.99 (908478601522139) Body mass index [BMI] 37.0-37.9, adult (Z68.37) Active confirmed Problem Sheltered homelessness (925126319506246) Sheltered homelessness (Z59.01) Active confirmed Problem 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35) Inactive confirmed Problem Carpal tunnel syndrome (67085266) Carpal tunnel syndrome, bilateral upper limbs (G56.03) Inactive confirmed Vital Signs Temperature 97.1 degrees Fahrenheit 11/16/2024 Blood pressure diastolic 91 10/12/2024 Oximetry 96 09/14/2024 Height 72 in 11/16/2024 Blood pressure systolic 144 10/12/2024 Weight 278 lbs 09/14/2024 BMI 37.7 kg/m2 09/14/2024 Procedures Procedure Date Ordered Date Performed Result Body Sit e EKG 10/12/2024 10/12/2024 Normal Encounters Encounter Location Date Provider Diagnosis [address] [address] 05/19/2025 Provider Migration [facility] [address] [id number] 09/14/2024 Milo Joshi Chronic viral hepatitis C [...] [BMI] 37.0-37.9, adult Z68.37 [facility] [address] [id number] 09/21/2024 Nursing [facility] Bipolar disorder, unspecified F31.9 [facility] [address] [place] [address] [place] [id number] 10/04/2024 Melanie Monge Bipolar disorder, current episode depressed, moderate F31.32 ; Insomnia due to other mental disorder F51.05 ; Cocaine abuse, in remission F14.11 ; Anxiety disorder, unspecified F41.9 ; Post-traumatic stress disorder, chronic F43.12 and Opioid abuse, uncomplicated F11.[address] [address] 10/12/2024 Milo Joshi Encounter for screening for COVID-19 Z11.52 ; Cervicalgia M54.2 ; Obesity, unspecified E66.9 ; Sheltered homelessness Z59.01 ; Bipolar disorder, current episode depressed, mild F31.31 ; Essential (primary) hypertension I10 ; Concussion with loss of consciousness of unspecified duration, initial encounter S06.0X9A and Other psychoactive substance abuse, uncomplicated F19.10 [facility] [address] [place] [address] [place] [id number] 11/14/2024 Milo Joshi Chest pain, unspecified R07.9 and Disappearance and of family member Z63.4 [facility] [address] [id number] 11/16/2024 Nursing [facility] Encounter for screening, unspecified Z13.9 [facility] [address] [id number] 11/21/2024 [facility] [place] [id number] 11/24/2024 Melanie Monge Insomnia due to other mental disorder F51.05 ; Bipolar disorder, current episode depressed, moderate F31.32 ; Cocaine abuse, in remission F14.11 ; Anxiety disorder, unspecified F41.9 ; Post-traumatic stress disorder, chronic F43.12 ; Opioid abuse, uncomplicated F11.10 ; Disappearance and of family member Z63.4 and Encounter for screening for COVID-[address] [place] [id number] 12/21/2024 Melanie Monge Insomnia due to other mental disorder F51.05 ; Cocaine abuse, in remission F14.11 ; Bipolar disorder, current episode depressed, moderate F31.32 ; Anxiety disorder, unspecified F41.9 ; Post-traumatic stress disorder, chronic F43.12 ; Opioid abuse, uncomplicated F11.10 ; Disappearance and of family member Z63.4 and Encounter for screening for COVID-[address] [address] 07/20/2025 Milo Joshi [address] [address] 09/14/2024 Milo Joshi [address] [address] 09/14/2024 Milo Joshi [address] [address] 09/14/2024 Milo Joshi [address] [address] 10/02/2024 Melanie Monge [address] [address] 10/05/2024 Milo Joshi Post-traumatic stress disorder, chronic F43.[address] [address] 10/12/2024 Milo Joshi [address] [address] 10/13/2024 Milo Joshi [address] [address] 11/16/2024 Milo Joshi [facility] [address] [place] [id number] 11/16/2024 Milo Joshi [facility] [address] [place] [id number] 11/17/2024 Milo Joshi [address] [address] 11/28/2024 Milo Joshi [address] [address] 12/21/2024 Milo Joshi [address] [address] 01/16/2025 Milo Joshi [facility] [address] [place] [address] 02/07/2025 Milo Joshi [address] [address] 02/20/2025 Milo Joshi [facility] [address] [place] [address] 04/06/2025 Milo Joshi [address] [address] 04/06/2025 Milo Joshi [address] [address] 04/24/2025 Milo Joshi [facility] [address] [place] [phone] 06/28/2025 Chela Torres [address] [address] 07/04/2025 Milo Joshi [address] [address] 07/05/2025 Milo Joshi [address] [address] 07/13/2025 Milo Joshi [address] [address] 07/18/2025 Milo Joshi [address] [address] 07/24/2025 Milo Joshi Assessments Encounter Date Diagnosis (ICD [...] (ICD-10 - F31.9) Called [facility] in [place] due to pt's rceiving daily methadone dose through N they could not guarantee any respite beds. Called [employer] crisis they as well could not guarantee any beds locally but possily in [facility]. 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 Pt agreeable to go to [facility] ED for psych eval and possible volunteer admission to inpatient psych. Discussed it was guaranteed to get dosed for methadone and to restart psych meds. During visit pt was able to eat breakfast provided by long-term in RN's office. Transportation provided to pt to assist with getting to [facility] for crisis eval and possible inpatient admission, [...] to proceed with prescribed treatment. 1. [employer] TE[employer] reviewed: see Exam 2. Medications: as above, received 1 week of refills from provider in [facility], will cont same doses and send 30 days 3. Cont psychotherapy: has appt 10/05/24 with Nusrat Torres [facility] 4. Labs/Procedures: has new lab orders from [...] [facility] Encounter for screening for [...] Pt had to leave to go to [facility] due to transport arriving. 11/24/2024 Insomnia due [...] to proceed with prescribed treatment. 1. [place] [employer] TE[employer]ER reviewed: see Exam 2. Medications: as above 3. Cont psychotherapy: has appt next week with Nusrat Conteh [facility]. 4. Labs/Procedures: no new labs for review [...] to proceed with prescribed treatment. 1. [place] [employer] TE[employer]ER reviewed: see Exam 2. Medications: as above 3. Psychotherapy: sent TE to Elodia Torres [facility].\ that clt would like to re-engage in [...] 09/14/2024 Sheltered homelessness (ICD-10 - Z59.01) In long-term here, hopes for room 09/14/2024 Obesity, unspecified (ICD-10 - E66.9) He is wilong to start phentermine and if unsccessful then Zepbound. SE's explained 09/14/2024 Body mass index [BMI] 37.0-37.9, adult (ICD-10 - Z68.37) makes back, GERD and stahma worse 09/28/2024 Other 10/12/2024 Other NOTE : TIME SPE NT ON VISIT: 11/23/2024 Other 01/16/2025 Other 07/20/2025 Other 09/14/2024 Other Recommended vac cameron at pharmacy iunclkuding flu, Tdap, [id number] HEpB and COVID 10/04/2024 Other Time spent [...] 1 TUBE 11/2023 Next Appt Details Provider Name:Milo Joshi, 10/09/2025 03:00:00 PM, [address] [facility], [place], [address], Insurance Providers Payer Name Payer Address Payer Phone Subscriber Number Group Number Insured Name Patient Relationship to Insured Coverage Start Date Coverage End Date [place] C[place] [address] [place], [place] [id number] Pollo Rey Self - patient is the insured 4 [employer] [facility] [address] [place] [address] [id number] Rey Abad Self - patient is the insured 6 Medical (General) History Medical History History ICD Code Bipolar Disorder PTSD ADHD Polysub abuse Hep C-DX by [facility] no f/u since Rt sided sciatica Tics Opioid abuse, uncomplicated Body mass index [BMI] 40.0-44.9, adult Z 68.41 Surgical History Surgery Date(Month/Year) Laser surgery on back (L5, S1 ) Hospitalization History Reason Date(Month/Year) [facility] [place] 2023 Psych admit, [facility] 01/2024 Psych admit [facility] [place] [address] [facility], [facility] 2022 [facility] pain U/S reveals bake r's Cyst Rt knee F/U DR Scotty Ervin [phone] 05/22/2020 [facility] ?acalculous cholecystitis- referr ed to [facility] GI HIDA scan 12/21/18 [facility] 04/2018 numerous detox admissions
--- OUTSIDE RECORDS SUMMARY | 2025-08-19 13:37 | XMS_ITS | Clinical Summary ---
Author Organization [facility] Address [address] [place] [address] Phone Care Team Providers Care Clam Digger Name Role Phone Physician, No Pcp Primary Care Provider Unavaila ble Allergies Active Allergy Reactions Criticality Noted Date Comments Penicillins Anaphylaxis High 05/30/2025 Medications OXcarbazepine (TRILEPTAL) 300 mg tablet Take 1 tablet (300 mg total) by mouth 2 (two) times a day. 5 Active ARIPiprazole (ABILIFY) 5 mg tablet Take 1 tablet (5 mg total) by mouth daily. Active buPROPion XL (WELLBUTRIN XL) 300 mg 24 hr tablet Take 1 tablet (300 mg total) by mouth daily. Active cloNIDine (CATAPRES) 0.1 mg tablet Take 1 tablet (0.1 mg total) by mouth 3 (three) times a day if needed. 5 Active hydrOXYzine pamoate (VISTARIL) 25 mg capsule Take 1-2 capsules (25-50 mg total) by mouth every 4 (four) hours if needed for anxiety. TAKE 1 TO 2 CAPSULES BY MOUTH EVERY 4 HOURS NEEDED 5 Active lidocaine 4 % patch Place 2 patches on the skin 1 (one) time each day at the same time. APPLY 2 PATCHES DAILY FOR RIGHT KNEE PAIN 5 Active lisinopriL (PRINIVIL,ZESTR IL) 5 mg tablet Take 1 tablet (5 mg total) by mouth 1 (one) time each day. take 1 tablet by mouth every day for hypertension 5 Active mirtazapine (REMERON) 15 mg tablet Take 1 tablet (15 mg total) by mouth at bedtime. 5 Active naproxen (NAPROSYN) 500 mg tablet Take 1 tablet (500 mg total) by mouth 2 (two) times a day with meals. 5 Active nicotine (NICODERM CQ) 21 mg/[address] 1 patch on the skin daily. Active nicotine polacrilex (NICORETTE) [address] 1 each (4 mg total) into mouth between cheek and gum. CHEW 1 GUM BY ORAL ROUTE 1 TIME PER HOUR NEEDED AND DIRECTED Active pantoprazole (PROTONIX) 40 mg EC tablet Take 1 tablet (40 mg total) by mouth 1 (one) time each day before breakfast. 5 Active prazosin (MINIPRESS) 2 mg capsule Take 1 capsule (2 mg total) by mouth daily. 5 Active melatonin 3 mg tablet Take 2 tablets (6 mg total) by mouth at bedtime. Active gabapentin (NEURONTIN) 600 mg tablet Take 1 tablet (600 mg total) by mouth 3 (three) times a day. Active Active Problems Problem Noted Date Diagnosed Date Alcohol withdrawal 08/13/2025 Encounters Date Type Department Care Team Description 08/13/2025 11:19 AM EST - 08/14/2025 12:39 PM EST Hospital Encounter [facility] [address] [place] [phone] Chiki Hammer MD Seralathan, Manikandan, MD Landry, Daniel L, MD Alcohol withdrawal syndrome with perceptual disturbance ([facility] V24, [facility] V28) (Primary Dx) Discharge Disposition: Left Against Medical Advice 05/30/2025 2:18 AM EDT - 05/30/2025 3:55 AM EDT Emergency [facility] [address] [place] [phone] Jose Sierra MD Chest pain, unspecified type [...] Mass Index 33.91 08/13/2025 11:14 AM EST Plan of Treatment Health Maintenance Due Date Last Done Comments DTaP,Tdap,and Td Vaccines (1 - Tdap) 01/29/2003 Hepatitis A Vaccines (1 of 2 - Risk 2-dose series) 01/29/2003 Hepatitis B Vaccines (1 of 3 - 19+ 3-dose series) 01/29/2003 Pneumococcal Vaccine: Pediat rics (0 to 5 Years) and At-Risk Patients (6 to 49 Years) (1 of 2 - PCV) 01/29/2003 HPV Vaccines (1 - 3-dose SCD M series) 01/29/2011 HIV Screening 08/09/2022 Hepatitis C Screening 08/09/2022 Social Influencers of Health Screening 08/09/2022 Depression Screening 09/06/2024 COVID-19 Vaccine (1 - 2024-2 6 season) 2025 Influenza Vaccine (#1) 2025 Cholesterol Screening (Lipid Panel) 02/06/2030 02/06/2025 RSV Immunization Adult Patie nts (1 - [...] AUTO DIFFERENTIAL Routine 08/14/2025 5:45 AM EST MAGNESIUM Routine 08/14/2025 5:45 AM EST CBC AND DIFFERENTIAL Routine 08/14/2025 5:45 AM EST BASIC METABOLIC PANEL Routine 08/14/2025 5:45 AM EST RESPIRATORY VIRUS PANEL MOLECULAR STUDY STAT 08/13/2025 7:59 PM EST XR CHEST 1 VIEW STAT 08/13/2025 3:34 PM EST FENTANYL, URINE STAT 08/13/2025 1:29 PM EST DRUG ABUSE SCREEN 8A PANEL, URINE STAT 08/13/2025 1:29 PM EST ECG 12-LEAD STAT 08/13/2025 12:34 PM EST CBC WITH AUTO DIFFERENTIAL STAT 08/13/2025 12:10 PM EST CBC AND DIFFERENTIAL STAT 08/13/2025 12:10 PM EST MYOGLOBIN, SERUM STAT 08/13/2025 12:1 0 PM EST MAGNESIUM STAT 08/13/2025 12:10 PM EST ETHANOL STAT 08/13/2025 12:10 PM EST COMPREHENSIVE METABOLIC PANEL STAT 08/13/2025 12:10 PM EST NC CRITICAL CARE 30-74 MINUTES Routine 08/13/2025 11:08 AM EST XR HIP 2-3 VIEWS RIGHT STAT 2:35 AM EDT XR CHEST 2 VIEWS STAT 05/30/2025 2:35 AM EDT ECG 12-LEAD STAT 05/30/2025 2:14 AM EDT CBC WITH AUTO DIFFERENTIAL STAT 05/30/2025 2:09 AM EDT TROPONIN I HIGH SENSITIVITY Timed 05/30/2025 2:09 AM EDT BASIC METABOLIC PANEL STAT 05/30/2025 2:09 AM EDT CBC AND DIFFERENTIAL STAT 05/30/2025 2:09 AM EDT ECG ANNOTATED 05/30/2025 from Last 3 Months Results * (ABNORMAL) CBC auto differential (08/14/2025 5:45 AM EST) Only the most recent of3 resultswithin the time period is included. WBC 7.1 4.8 - 10.8 K/mcL LAB HEMETOLOGY METHOD 08/14/2025 6:59 AM [facility] RBC 4.00(L) 4.50 - 5.50 M/mcL LAB HEMETOLOGY METHOD 08/14/2025 6:59 AM [facility] Hemoglobin 12.5(L) 13.5 - 17.5 g/dL LAB HEMETOLOGY METHOD 08/14/2025 6:59 AM [facility] Hematocrit 36.1(L) 42.0 - 54.0 % LAB HEMETOLOGY METHOD 08/14/2025 6:59 AM [facility] MCV 90.0 79.0 - 98.0 FL LAB HEMETOLOGY METHOD 08/14/2025 6:59 AM [facility] MCH 31.2 27.0 - 32.0 pcg LAB HEMETOLOGY METHOD 08/14/2025 6:59 AM [facility] MCHC 34.6 32.0 - 37.0 g/dL LAB HEMETOLOGY METHOD 08/14/2025 6:59 AM [facility] RDW 13.1 11.0 - 15.0 % LAB HEMETOLOGY METHOD 08/14/2025 6:59 AM [facility] Platelets 256 130 - 400 K/mcL LAB HEMETOLOGY METHOD 08/14/2025 6:59 AM [facility] MPV 9.5 7.0 - 11.0 FL LAB HEMETOLOGY METHOD 08/14/2025 6:59 AM [facility] NRBC 0.0 <1.0 % LAB HEMETOLOGY METHOD 08/14/2025 6:59 AM [facility] NRBC Absolute 0.00 <0.10 K/mcL LAB HEMETOLOGY METHOD 08/14/2025 6:59 AM [facility] Neutrophils Relative 67.3 % LAB HEMETOLOGY METHOD 08/14/2025 6:59 AM [facility] Lymphocytes Relative 18.7 % LAB HEMETOLOGY METHOD 08/14/2025 6:59 AM [facility] Monocytes Relative 9.5 % LAB HEMETOLOGY METHOD 08/14/2025 6:59 AM [facility] Eosinophils Relative 3.8 % LAB HEMETOLOGY METHOD 08/14/2025 6:59 AM [facility] Basophils Relative 0.3 % LAB HEMETOLOGY METHOD 08/14/2025 6:59 AM [facility] Immature Granulocytes Relative 0.4 % LAB HEMETOLOGY METHOD 08/14/2025 6:59 AM [facility] Neutrophils Absolute 4.80 1.50 - 7.00 K/mcL LAB HEMETOLOGY METHOD 08/14/2025 6:59 AM EST [facility] Lymphocytes Absolute 1.33 1.00 - 5.00 K/mcL LAB HEMETOLOGY METHOD 08/14/2025 6:59 AM EST [facility] Monocytes Absolute 0.68 0.20 - 1.00 K/mcL LAB HEMETOLOGY METHOD 08/14/2025 6:59 AM EST [facility] Eosinophils Absolute 0.27 0.00 - 0.50 K/[facility] LAB HEMETOLOGY METHOD 08/14/2025 6:59 AM EST [facility] Basophils Absolute 0.02 0.00 - 0.20 K/[facility] LAB HEMETOLOGY METHOD 08/14/2025 6:59 AM EST [facility] Immature Granulocytes Absolute 0.03 0.00 - 0.03 K/[facility] LAB HEMETOLOGY METHOD 08/14/2025 6:59 AM EST [facility] Blood Venous blood specimen / Unknown Venipuncture / Unknown 08/14/2025 5:45 AM EST 08/14/2025 6:28 AM EST Jocelyn Harris [employer] LAB BLOOD ORDERABLES Fin al Result [facility] [address] [place] [address], * (ABNORMAL) Magnesium (08/14/2025 5:45 AM EST) Only the most recent of2 resultswithin the time period is included. Magnesium 1.8(L) 1.9 - 2.6 mg/dL 08/14/2025 7:09 AM EST [facility] Blood Venous blood specimen / Unknown Venipuncture / Unknown 08/14/2025 5:45 AM EST 08/14/2025 6:28 AM EST us Jocelyn Laguerre Medina Harris [employer] LAB BLOOD ORDERABLES Fin al Result [facility] [address] [place] [address], * (ABNORMAL) Basic metabolic panel (08/14/2025 5:45 AM EST) Only the most recent of2 resultswithin the time period is included. Sodium 134 133 - 145 mmol/L 08/14/2025 7:09 AM [facility] Potassium 3.8 3.5 - 5.5 mmol/L 08/14/2025 7:09 AM [facility] Chloride 98 96 - 110 mmol/L 08/14/2025 7:09 AM [facility] CO2 29 21 - 32 mmol/L 08/14/2025 7:09 AM [facility] Anion Gap 7 3 - 11 08/14/2025 7:09 AM [facility] Glucose 138(H) 70 - 100 mg/dL 08/14/2025 7:09 AM [facility] BUN 19 5 - 25 mg/dL 08/14/2025 7:09 AM [facility] Creatinine 0.78 0.70 - 1.30 mg/dL 08/14/2025 7:09 AM [facility] eGFR 115 >=60 mL/min/1. 73m2 08/14/2025 7:09 AM [facility] Comment:Calculation based on the Chronic Kidney Disease Epidemiology Collaboration (CKD-EPI) equation refit without adjustment for race. BUN/Creatinine Ratio 24.4 08/14/2025 7:09 AM [facility] Calcium 8.4(L) 8.5 - 10.5 mg/dL 08/14/2025 7:09 AM [facility] Blood Venous blood specimen / Unknown Venipuncture / Unknown 08/14/2025 5:45 AM EST 08/14/2025 6:28 AM EST Jocelyn Carlotta Harris [employer] LAB BLOOD ORDERABLES Fin al Result [facility] [address] [place] [address], * Respiratory virus panel molecular study (08/13/2025 7:59 PM EST) Adenovirus Detection by PCR Not Detected Not Detected LAB MICROBIOLOGY METHOD 08/13/2025 9:21 PM [facility] Influenza A PCR Not Detected Not Detected LAB MICROBIOLOGY METHOD 08/13/2025 9:21 PM EST [facility] Influenza B PCR Not Detected Not Detected LAB MICROBIOLOGY METHOD 08/13/2025 9:21 PM EST [facility] Coronavirus 229E Not Detected Not Detected LAB MICROBIOLOGY METHOD 08/13/2025 9:21 PM EST [facility] Coronavirus HKU1 Not Detected Not Detected LAB MICROBIOLOGY METHOD 08/13/2025 9:21 PM EST [facility] Coronavirus OC43 Not Detected Not Detected LAB MICROBIOLOGY METHOD 08/13/2025 9:21 PM EST [facility] Coronavirus NL63 Not Detected Not Detected LAB MICROBIOLOGY METHOD 08/13/2025 9:21 PM EST [facility] Parainfluenza Virus 1 Not Detected Not Detected LAB MICROBIOLOGY METHOD 08/13/2025 9:21 PM EST [facility] Parainfluenza Virus 2 Not Detected Not Detected LAB MICROBIOLOGY METHOD 08/13/2025 9:21 PM [facility] Parainfluenza Virus 3 Not Detected Not Detected LAB MICROBIOLOGY METHOD 08/13/2025 9:21 PM [facility] Parainfluenza Virus 4 Not Detected Not Detected LAB MICROBIOLOGY METHOD 08/13/2025 9:21 PM EST [facility] RSV PCR Not Detected Not Detected LAB MICROBIOLOGY METHOD 08/13/2025 9:21 PM [facility] Human Metapneumovirus A and B Not Detected Not Detected LAB MICROBIOLOGY METHOD 08/13/2025 9:21 PM EST [facility] Rhinovirus/Entero virus Not Detected Not Detected LAB MICROBIOLOGY METHOD 08/13/2025 9:21 PM EST [facility] Bordetella pertussis Not Detected Not Detected LAB MICROBIOLOGY METHOD 08/13/2025 9:21 PM [facility] Bordetella parapertussis Not Detected Not Detected LAB MICROBIOLOGY METHOD 08/13/2025 9:21 PM [facility] Mycoplasma pneumo by PCR Not Detected Not Detected LAB MICROBIOLOGY METHOD 08/13/2025 9:21 PM [facility] Chlamydia pneumoniae Not Detected Not Detected LAB MICROBIOLOGY METHOD 08/13/2025 9:21 PM [facility] SARS COV-2 Not Detected Not Detected LAB MICROBIOLOGY METHOD 08/13/2025 9:21 PM [facility] Swab Both anterior nares / Unknown Non-blood Collection / Unknown 08/13/2025 7:59 PM EST 08/13/2025 8:25 PM EST [facility] - 08/13/2025 9:21 PM EST Testing was performed using the [employer] Respiratory Pathogen PCR Assay. All results must [...] MICROBIOLOGY - GENER AL ORDERABLES Final Result [facility] [address] [place] [address], [place] [phone] * XR Chest 1 View (08/13/2025 3:34 [...] Signed Date: 08/13/2025 16:14 ET Workstation ID: [id number] Transcribed By: Self Edit Transcribed Date: 08/13/2025 [...] Signed Date: 08/13/2025 16:14 ET Workstation ID: [id number] Transcribed By: Self Edit Transcribed Date: 08/13/2025 16:13 ET us Jocelyn Harris [employer] IMG XR PROCEDURES Final Result * (ABNORMAL) Drug abuse screen 8a panel, urine (08/13/2025 1:29 PM EST) Amphetamine Screen, Ur Positive(A ) Negative 08/13/2025 2:29 PM EST [facility] Comment:Certain OTC medicati ons containing ephedrine, phenylephrine, pseudoephedrine and phenylpropanolamine can cause false positive results. Barbiturate Screen, Ur Positive(A ) Negative 08/13/2025 2:29 PM EST [facility] Benzodiazepine Screen, Ur Negative Negative 08/13/2025 2:29 PM [facility] Cocaine Screen, Ur Positive(A ) Negative 08/13/2025 2:29 PM EST [facility] Opiate Screen, Ur Negative Negative 2:29 PM EST [facility] Cannabinoid (THC) Screen, Ur Negative Negative 08/13/2025 2:29 PM EST [facility] Comment:Specimens from patie nts taking pantoprazole sodium (Protonix) have been shown to produce false positive results. Oxycodone Screen, Ur Negative Negative 04/2025 2:29 PM EST [facility] Fentanyl, Ur Positive(A ) Negative 08/13/2025 2:29 PM [facility] Urine Urine specimen obtained by clean catch procedure / Unknown Non-blood Collection / Unknown 08/13/2025 1:29 PM EST 08/13/2025 1:44 PM EST Narrative [facility] - 08/13/2025 2:29 PM EST Assay [...] Hammer MD LAB URINE ORDERABLES Final Result [facility] [address] [place] [address], * (ABNORMAL) Fentanyl urine (08/13/2025 1:29 PM EST) Fentanyl, Ur Positive(A ) Negative 08/13/2025 2:26 PM EST [facility] Urine Urine specimen obtained by clean catch procedure / Unknown Non-blood Collection / Unknown 08/13/2025 1:29 PM EST 08/13/2025 1:44 PM EST Narrative [facility] - 08/13/2025 2:26 PM EST Assay cutoff 1 ng/mL Semi-quantitative assay for screening purposes only. Unconfirmed screening result should not be used for non-medical purposes. *ALTERNATE METHOD CONFIRMATION DONE UPON REQUEST ONLY* Chiki Hammer MD LAB URINE ORDERABLES Final Result [facility] [address] [place] [address], [place] [phone] * 12-Lead ECG (08/13/2025 12:34 PM EST) Only the most recent of2 resultswithin the time period is included. [facility] Ventricular Rate ECG 79 BPM GEMUSE Atrial Rate 79 BPM GEMUSE P-R Interval 138 ms GEMUSE QRS Duration 92 ms GEMUSE Q-T Interval 364 ms GEMUSE QTc 417 ms GEMUSE P Wave [place] 6 degrees GEMUSE R [place] 28 degrees GEMUSE T [place] 43 degrees GEMUSE ECG Interpretation Normal sinus rhythm Normal ECG When compared with ECG of 30-MAY-2025 02:14, No significant change was found Confirmed by RONDA QUINONEZ ([id number]) on 08/13/2025 8:50:02 PM GEMUSE 08/13/2025 12:3 4 PM EST 08/13/2025 8:50 PM EST Chiki Hammer MD ECG ORDERABLES Final Resul t Performing Organization Address City/[facility]/ZIP Co de Phone Number GEMUSE * (ABNORMAL) Myoglobin (08/13/2025 12:10 PM EST) Myoglobin 256(H) <=72 ng/mL 08/17/2025 3:47 PM EST [facility] Comment: REFERENCE INTERVAL: Myoglobin Serum Access complete set of age- and/or gender-specific reference intervals for this test in the [facility] Test Directory ([employer]). Performed By: [employer] [address] [place] [id number] Carrier Driver: Chiki Osorio MD, PhD CLIA Number: [id number] Blood Venous blood specimen / Unknown Venipuncture / Unknown 08/13/2025 12:10 PM EST 08/13/2025 12:29 PM EST hCiki Hammer MD LAB BLOOD ORDERABLES Final Result [facility] [address] [place] [id number] * Ethanol (08/13/2025 12:10 PM EST) Pathologist [facility] Ethanol Level <3 0 - 10 mg/dL 08/13/2025 1:55 PM EST [facility] Blood Venous blood specimen / Unknown Venipuncture / Unknown 08/13/2025 12:10 PM EST 08/13/2025 12:29 PM EST Chiki Hammer MD LAB BLOOD ORDERABLES Final Result [facility] [address] [place] [address], [place] [phone] * (ABNORMAL) Comprehensive Metabolic Panel (CMP) (08/13/2025 12:10 PM EST) Pathologist [facility] Sodium 135 133 - 145 mmol/L 08/13/2025 1:33 PM EST [facility] Potassium 4.0 3.5 - 5.5 mmol/L 08/13/2025 1:33 PM EST [facility] Chloride 97 96 - 110 mmol/L 08/13/2025 1:33 PM [facility] CO2 27 21 - 32 mmol/L 08/13/2025 1:33 PM [facility] Anion Gap 11 3 - 11 08/13/2025 1:33 PM [facility] Glucose 77 70 - 100 mg/dL 08/13/2025 1:33 PM [facility] BUN 24 5 - 25 mg/dL 08/13/2025 1:33 PM [facility] Creatinine 0.98 0.70 - 1.30 mg/dL 08/13/2025 1:33 PM [facility] eGFR 99 >=60 mL/min/1. 73m2 08/13/2025 1:33 PM [facility] Comment:Calculation based on the Chronic Kidney Disease Epidemiology Collaboration (CKD-EPI) equation refit without adjustment for race. BUN/Creatinine Ratio 24.5 08/13/2025 1:33 PM [facility] Calcium 9.0 8.5 - 10.5 mg/dL 08/13/2025 1:33 PM [facility] AST (SGOT) 110(H) 10 - 42 unit/L 08/13/2025 1:33 PM [facility] ALT (SGPT) 84(H) 10 - 60 unit/L 08/13/2025 1:33 PM [facility] Alkaline Phosphatase 115 42 - 121 unit/L 08/13/2025 1:33 PM [facility] Total Protein 8.1(H) 6.0 - 8.0 g/dL 08/13/2025 1:33 PM [facility] Albumin 4.5 3.2 - 5.0 g/dL 08/13/2025 1:33 PM [facility] Total Bilirubin 1.0 0.0 - 1.4 mg/dL 08/13/2025 1:33 PM EST [facility] Blood Venous blood specimen / Unknown Venipuncture / Unknown 08/13/2025 12:10 PM EST 08/13/2025 12:29 PM EST Chiki Hammer MD LAB BLOOD ORDERABLES Final Result [facility] [address] [place] [address], * [place] CRITICAL CARE 30-74 MINUTES (08/13/2025 11:08 AM [...] MD IN CLINIC/BEDSIDE ORDERABLE S Final Result * XR Hip 2-3 Views Right (05/30/2025 2:35 AM EDT) Anatomical Region Laterality Modality Lower Extremities, Hip Right Radiograp hic Imaging 05/30/2025 9:10 AM EDT Impressions 05/30/2025 9:11 AM EDT Impression: Normal right hip series. Telerad JACKELIN ([id number]) -------- FINAL REPORT -------- Dictated By: Laly Nelson Dictated Date: 05/30/2025 09:10 ET Assigned Physician: Laly Nelson Reviewed and Electronically Signed By: Laly Nelson Signed Date: 05/30/2025 09:11 ET Workstation ID: [id number] Transcribed By: Self Edit Transcribed Date: 05/30/2025 [...] Impression: Normal right hip series. Telerad PA ([id number]) -------- FINAL REPORT -------- Dictated By: Laly Nelson Dictated Date: 05/30/2025 09:10 ET Assigned Physician: Laly Nelson Reviewed and Electronically Signed By: Laly Nelson Signed Date: 05/30/2025 09:11 ET Workstation ID: [id number] Transcribed By: Self Edit Transcribed Date: 05/30/2025 09:10 ET us Jose Sierra MD IMG XR PROCEDURES Final Re sult * XR Chest 2 Views (05/30/2025 2:35 AM EDT) Anatomical Region Laterality Modality Body Radiographic Charlene ging 05/30/2025 9:08 AM EDT Impressions 05/30/2025 9:10 AM EDT Impression: 1. Hyperinflated lungs. 2. Probable pleural scarring at the right base, unchanged from the previous study. Telerad JACKELIN ([id number]) -------- FINAL REPORT -------- Dictated By: Laly Nelson Dictated Date: 05/30/2025 09:08 ET Assigned Physician: Laly Nelson Reviewed and Electronically Signed By: Laly Nelson Signed Date: 05/30/2025 09:10 ET Workstation ID: [id number] Transcribed By: Self Edit Transcribed Date: 05/30/2025 [...] right base, unchanged from theprevious study. Telerad JACKELIN ([id number]) -------- FINAL REPORT -------- Dictated By: Laly Nelson Dictated Date: 05/30/2025 09:08 ET Assigned Physician: Laly Nelson Reviewed and Electronically Signed By: Laly Nelson Signed Date: 05/30/2025 09:10 ET Workstation ID: [id number] Transcribed By: Self Edit Transcribed Date: 05/30/2025 09:08 ET Jose Sierra MD IMG XR PROCEDURES Final Re sult * Troponin I high sensitivity (05/30/2025 2:09 AM EDT) High Sensitivity Troponin I 8 <=79 ng/L LAB CHEMISTRY METHOD 05/30/2025 2:51 AM EDT [facility] Blood Venous blood specimen / Unknown Venipuncture / Unknown 05/30/2025 2:09 AM EDT 05/30/2025 2:12 AM EDT Narrative [facility] - 05/30/2025 2:51 AM EDT High levels of biotin in samples may falsely decrease hsTroponin values. Use caution when interpreting hsTroponin results in patients taking biotin who exhibit renal impairment (eGFR <60) or in patients taking more than 20 mg/day of biotin. Jose Sierra MD LAB BLOOD ORDERABLES Final Result [facility] [address] [place] [address], * ECG-Annotated (05/30/2025) us Provider Onbase ECG ORDERABLES Final Result from Last 3 Months Insurance MEDICAID - [place] Advance Directives * Full Code - Confirmed (Latest Code Status on File) Date Activated Date Inactivated Comments 08/13/2025 2:52 PM 08/14/2025 2:[address] [facility] was ascertained in the following way: Code status discussion: discussion with patient To update the patient's code status, place a code status order. Do not modify or discontinue any currently active code status orders. Care Teams Clam Digger Relationship Specialty Start Date End Date Physician, No Pcp PCP - General 05/30/25
--- OUTSIDE RECORDS SUMMARY | 2025-08-19 13:37 | XMS_ITS | Clinical Summary ---
Author Organization [facility] Address [address] [place] [address] Phone Care Team Providers Care Principal Product Manager Name Role Phone Milo Joshi MD Primary Care Provider [phone] Allergies Active Allergy Reactions Criticality Noted Date [...] nightly at bedtime. 7 tablet 1 07/11/20 25 Active cefadroxil (DURICEF) 500 MG capsule Take 1 capsule (500 mg total) by mouth 2 (two) times a day for 7 days. 14 capsule 07/16/20 25 025 Active Problems Problem Noted Date Diagnosed Date NANCY (generalized anxiety disorder) 07/16/2025 Suicidal ideation 07/04/2025 Bipolar affective disorder 07/04/2025 Alcohol use disorder 02/01/2025 Grief reaction 02/01/2025 Depression 01/06/2025 Depression, unspecified depression type 01/07/20 25 Bipolar disorder 09/22/2024 Opioid use disorder 09/22/2024 [...] PM EST Hospital Encounter [facility] [address] [place] [address] Bayron Quijano MD Savage, Justin G, DO Griffith, Andrew Thomas Liao, MD Discharge Disposition: Home or Self Care from Last 3 Months Social History Tobacco Use Types Packs/Day Years Used Date Smoking Tobacco: Every Day Cigarettes 1.5 5.1 Started: 07/04/2020 Passive Smoke Exposure: Past Smokeless [...] housing (staying in a hotel, in a jail, living outside on the street, on a [...] SCREENING 07/04/2026 07/04/2025 SCREENING FOR DIABETES 07/16/2028 5, 02/06/2025 LIPID PANEL 02/06/2030 02/06/2025, 09/23/2024 HEPATITIS [...] of2 resultswithin the time period is included. [facility] Ethanol <10 Negative; <11 mg/dL 07/16/2025 12:42 AM [facility] Blood (Blood) 07/16/2025 12: 08 AM EST 07/16/2025 12:14 AM EST us Bayron Quijano MD LAB BLOOD BKR ORDERABLES Final Result Performing Organization Address City/State/[facility] Co de Phone Number [address] [address] * (ABNORMAL) CBC and Differential (07/16/2025 12:08 AM EST) [facility] WBC 7.10 4.00 - 11.00 K/uL 07/16/2025 12:17 AM [facility] RBC 3.79(L) 4.50 - 5.90 M/uL 07/16/2025 12:17 AM [facility] Hemoglobin 11.8(L) 13.5 - 17.5 g/dL 07/16/2025 12:17 AM [facility] Hematocrit 34.2(L) 41.0 - 53.0 % 07/16/2025 12:17 AM [facility] MCV 90.2 80.0 - 100.0 fL 07/16/2025 12:17 AM [facility] MCH 31.1(H) 27.0 - 31.0 pg 07/16/2025 12:17 AM [facility] MCHC 34.5 32.0 - 36.0 g/dL 07/16/2025 12:17 AM [facility] MPV 9.4 8.4 - 12.0 fL 07/16/2025 12:17 AM [facility] RDW-CV 12.7 11.5 - 14.5 % 07/16/2025 12:17 AM [facility] PLT 288 150 - 450 K/uL 07/16/2025 12:17 AM [facility] Neutrophils 59.7 % 07/16/2025 12:17 AM [facility] Lymphocytes 26.2 % 07/16/2025 12:17 AM [facility] Monocytes 12.5 % 07/16/2025 12:17 AM [facility] Eosinophils 1.4 % 07/16/2025 12:17 AM [facility] Basophils 0.1 % 07/16/2025 12:17 AM [facility] Imm Grans 0.1 % 07/16/2025 12:17 AM [facility] NRBC 0.0 <=0.0 /100 WBCs 07/16/2025 12:17 AM [facility] Absolute Neutrophils 4.23 1.92 - 7.60 K/uL 07/16/2025 12:17 AM [facility] Absolute Lymphocytes 1.86 0.72 - 4.10 K/uL 07/16/2025 12:17 AM [facility] Absolute Monocytes 0.89 0.16 - 1.10 K/uL 07/16/2025 12:17 AM [facility] Absolute Eosinophils 0.10 0.00 - 0.50 K/uL 07/16/2025 12:17 AM [facility] Absolute Basophils 0.01 0.00 - 0.15 K/uL 07/16/2025 12:17 AM [facility] Absolute Imm Grans 0.01 0.00 - 0.09 K/uL 07/16/2025 12:17 AM [facility] Absolute NRBC 0.00 <=0.00 K cells/uL 07/16/2025 12:17 AM [facility] Absolute Neutrophils 4.23 1.92 - 7.60 K/uL 07/16/2025 12:17 AM [facility] Comment:Automated cell count . Manual ANC may differ if performed. Diff Type Auto 07/16/2025 12:17 AM [facility] Blood (Blood) 07/16/2025 12: 08 AM EST 07/16/2025 12:14 AM EST us Bayron Quijano MD LAB BLOOD BKR ORDERABLES Final Result [address] [address] * (ABNORMAL) Hepatic Panel (LFTs) (07/16/2025 12:08 AM EST) Only the most recent of2 resultswithin the time period is included. AST 42(H) <40 U/L 07/16/2025 12:42 AM EST [facility] ALT 53(H) <50 U/L 07/16/2025 12:42 AM [facility] Alkaline Phosphatase 92 40 - 130 U/L 07/16/2025 12:42 AM [facility] Bilirubin, Total 0.6 0.0 - 1.2 mg/dL 07/16/2025 12:42 AM [facility] Bilirubin, Direct 0.2 0.0 - 0.3 mg/dL 07/16/2025 12:42 AM [facility] Total Protein 7.1 6.4 - 8.3 g/dL 07/16/2025 12:42 AM [facility] Albumin 3.7 3.5 - 5.2 g/dL 07/16/2025 12:42 AM [facility] Globulin 3.4 1.9 - 4.1 g/dL 07/16/2025 12:42 AM [facility] Blood (Blood) 07/16/2025 12: 08 AM EST 07/16/2025 12:14 AM EST us Bayron Quijano MD LAB BLOOD BKR ORDERABLES Final Result [address] [address] * Magnesium (07/16/2025 12:08 AM EST) Magnesium 1.9 1.7 - 2.6 mg/dL 07/16/2025 12:42 AM [facility] Blood (Blood) 07/16/2025 12: 08 AM EST 07/16/2025 12:14 AM EST us Bayron Quijano MD LAB BLOOD BKR ORDERABLES Final Result Performing Organization Address City/[facility]/ZIP Co de Phone Number [address] [address] * (ABNORMAL) Basic Metabolic Panel (BMP) (07/16/2025 12:08 AM EST) Only the most recent of2 resultswithin the time period is included. Sodium 135(L) 136 - 145 mmol/L 07/16/2025 12:42 AM [facility] Potassium 3.9 3.4 - 5.1 mmol/L 07/16/2025 12:42 AM [facility] Chloride 100 98 - 107 mmol/L 07/16/2025 12:42 AM [facility] CO2 25 20 - 31 mmol/L 07/16/2025 12:42 AM [facility] Anion Gap 10 3 - 17 mmol/L 07/16/2025 12:42 AM [facility] BUN 11 6 - 23 mg/dL 07/16/2025 12:42 AM [facility] Creatinine 0.50(L) 0.60 - 1.30 mg/dL 07/16/2025 12:42 AM [facility] eGFR 131 >59 mL/min/1.7 3m2 07/16/2025 12:42 AM [facility] Comment:Estimated glomerular filtration rate calculated using the CKD-EPI refit equation. Glucose 120(H) 70 - 99 mg/dL 07/16/2025 12:42 AM [facility] Calcium 8.9 8.5 - 10.5 mg/dL 07/16/2025 12:42 AM [facility] Blood (Blood) 07/16/2025 12: 08 AM EST 07/16/2025 12:14 AM EST us Bayron Quijano MD LAB BLOOD BKR ORDERABLES Final Result Performing Organization Address City/[facility]/ZIP Co de Phone Number [address] [address] * (ABNORMAL) Toxicology Screen, Urine (07/15/2025 11:34 PM EST) Amphetamines, Urine Negative Negative 07/16/2025 1:16 AM [facility] Benzodiazepine, Urine Negative Negative 07/16/2025 1:16 AM [facility] Cocaine Metabolite, Urine Positive(A) Negative 07/16/2025 1:16 AM [facility] Opiates, Urine Negative Negative 07/16/2025 1:16 AM [facility] Oxycodone, Urine Negative Negative 07/16/20 1:16 AM [facility] Fentanyl, Urine Positive(A) Negative 07/16/20 1:16 AM [facility] Comment:An unexplained posit perla fentanyl test could be due to risperidone, haloperidol, pipamperone, trazadone or labetalol. Confirmatory testing by mass spectrometry can be requested if a definitive result is needed. Creatinine, Urine 104 20 - 300 mg/dL 07/16/2025 1:16 AM [facility] Urine (Urine, Voided) Non-Blood Collection / Unknown 07/15/2025 11:34 PM EST 07/16/2025 12:16 AM [facility] - 07/16/2025 1:16 AM EST This screening test was performed by immunoassay methodology, which may occasionally yield false-negative or false-positive results. Confirmatory testing can be requested if a definitive result is needed. Results are to be used only for medical (ie, treatment) purposes. Unconfirmed screening results must not be used for non-medical purposes (eg, employment testing). us Bayron Quijano MD LAB URINE ORDERABLES Fin al Result [facility] [address] [place] [address] * XR KNEE 4 OR MORE VIEWS [...] clinician's provided indication for this examination in Epic: Pain COMPARISON: None Procedure Note Yuridia Alvarado MD - 07/06/2025 XR KNEE 4 OR MORE VIEWS (RIGHT) 07/06/2025 11:42 AM Referring clinician's provided indication for this examination in Epic:Pain COMPARISON: None IMPRESSION: FINDINGS/IMPRESSION: There is no [...] EDT) WBC 10.92 4.00 - 11.00 K/uL [facility] RBC 4.16(L) 4.50 - 5.90 M/uL [facility] HGB 13.0(L) 13.5 - 17.5 g/dL [facility] HCT 38.0(L) 41.0 - 53.0 % [facility] PLT 378 150 - 450 K/uL [facility] MCV 91.3 80.0 - 100.0 fL [facility] MCH 31.3(H) 27.0 - 31.0 pg [facility] MCHC 34.2 32.0 - 36.0 g/dL [facility] RDW 12.8 11.5 - 14.5 % [facility] MPV 8.8 8.4 - 12.0 fL [facility] NRBC 0.00 0.00 /100 WBCs [facility] ABSOLUTE NRBC 0.00 0.00 K/uL [facility] DIFF METHOD Auto [facility] NEUTS 71.1 48.0 - 76.0 % [facility] LYMPHS 20.4 18.0 - 41.0 % [facility] MONOS 6.8 4.0 - 11.0 % [facility] EOS 1.2 0.0 - 5.0 % [facility] BASOS 0.2 0.0 - 1.5 % [facility] Granulocytes, immature (%) 0.3 0.0 - 0.9 % [facility] ABSOLUTE NEUTS 7.77(H) 1.92 - 7.60 K/uL [facility] ABSOLUTE LYMPHS 2.23 0.72 - 4.10 K/uL [facility] ABSOLUTE MONOS 0.74 0.16 - 1.10 K/uL [facility] ABSOLUTE EOS 0.13 0.00 - 0.50 K/uL [facility] ABSOLUTE BASOS 0.02 0.00 - 0.15 K/uL [facility] Granulocytes, immature 0.03 0.00 - 0.09 K/uL [facility] Blood 07/04/2025 12:0 1 PM EDT 07/04/2025 12:05 PM EDT us Mouna Hughes PA-C LAB BLOOD BKR ORDERABLE S Final Result [facility] [address], [place] [id number] * XR CHEST 1 VIEW (07/04/2025 11:50 AM EDT) Anatomical Region Laterality Modality Chest Computed Radiogr aphy 07/04/2025 12:4 1 PM EDT Impressions 07/04/2025 12:49 PM EDT No acute abnormality. Narrative 07/04/2025 12:49 PM EDT XR CHEST 1 VIEW Referring clinician's provided indication for this examination in [facility]: Pain COMPARISON: XR CHEST PA AND LATERAL 2 VIEWS FINDINGS: Devices/Tubes/Lines: None. Lungs: No focal consolidation or pulmonary edema. Pleura: No pleural effusion or pneumothorax. Heart/Mediastinum: Normal heart and mediastinum. Bones/Soft Tissues: No significant abnormality. Procedure Note Skylar Mcconnell MD - 07/04/2025 XR CHEST 1 VIEW Referring clinician's provided indication for this examination in [facility]:Pain COMPARISON: XR CHEST PA AND LATERAL 2 VIEWS FINDINGS: Devices/Tubes/Lines: None. Lungs: No focal consolidation or pulmonary edema. Pleura: No pleural effusion or pneumothorax. Heart/Mediastinum: Normal heart and mediastinum. Bones/Soft Tissues: No significant abnormality. IMPRESSION: No acute abnormality. Mouna Hughes PA-C IMG XR CHEST Final R esult * Lipid panel (02/06/2025 6:56 AM EDT) HDL 45 mg/dL [facility] Comment: Interpretation <40 mg/dL: Low HDL cholesterol (major risk factor for CHD) Greater than or equal to 60 mg/dL: High HDL cholesterol ( negative risk factor for CHD) HDL - cholesterol is affected by a number of factors, e.g. smoking, excerise, hormones, sex and age. CHOLESTEROL 158 0 - 240 mg/dL [facility] TRIGLYCERIDES 147 30 - 160 mg/dL [facility] LDL 84 50 - 129 mg/dL [facility] Comment: LDL levels in terms of risk for coronary heart disease: <100 mg/dL: Optimal 100-129 mg/dL: Near or above optimal 130-159 mg/dL: Borderline high 160-189 mg/dL: High >190 mg/dL: Very High CARDIAC RISK RATIO 3.5 3.4 - 5.0 [facility] Blood 02/06/2025 6:56 AM EDT 02/06/2025 7:16 AM EDT us Milo Bonilla MD LAB BLOOD BKR ORDERABLES F inal Result [facility] [address] [id number] from Last 3 Months or Most Recently Relevant to Health Maintenance Insurance Advance Directives For more information, please contact: [phone] (9AM - 5PM [facility], Wednesday-Wednesday) * Full Code (Latest Code Status [...] Code Status Confirmed With: Patient Care Teams Principal Product Manager Relationship Specialty Start Date End Date Milo Joshi MD [address] [place] [id number] PCP - General Internal Medicine 07/04/25 Additional Source Comments The information contained in this document represents components of the legal health record. It is not the complete legal health record.[facility]
[2025-08-19] MEDS: PHENobarbitaL sodium 130 MG/ML IM ONCE 466 MG IM (13:54)
[2025-08-19 14:18] VITALS: BP 147/82; PULSE 86; RESP 15; O2SAT 98
[2025-08-19 14:19] LABS: MANUAL DIFF FLAG NO
[2025-08-19 14:26] LABS: Hematocrit 38.3 % (42.0-52.0); Hemoglobin 13.4 g/dl (14.0-18.0); Imm Gran Abs Auto 0.06 X10*3/uL (0.00-0.03); Imm Gran Pct Auto 0.6 % (0.0-0.4); Lymphocytes Absolute Auto 1.7 X10*3/uL (1.2-4.9); Mean Corpuscular HGB Conc 35.0 g/dl (31.0-36.0); Mean Corpuscular Hemoglobin 31.1 pg (27.0-33.0); Mean Corpuscular Volume 88.9 fL (80.0-98.0); NRBC Abs Auto 0.000 X10*3/uL (0.0-0.012); NRBC Pct Auto 0.0 /100WBC (0.0-0.2); Platelet Count 348 X10*3/uL (160-400); Red Blood Count 4.31 X10*6/uL (4.60-5.80); White Blood Count 10.7 X10*3/uL (4.8-10.8)
[2025-08-19 14:32] LABS: Alanine Aminotransferase 83 U/L (0-40); Albumin Level 4.3 g/dL (3.5-5.0); Alkaline Phosphatase 104 U/L (39-117); Anion Gap 13 (12-20); Aspartate Amino Transferase 70 U/L (5-37); Blood Urea Nitrogen 17 mg/dL (9-16); Calcium 8.9 mg/dL (8.4-10.2); Carbon Dioxide 25 mmol/L (22-29); Chloride 101 mmol/L (96-108); Creatinine Clr Calc Pharmacy 161.7; Estimated Glomerular Filt Rate > 60; Lipase 6 U/L (8-78); Magnesium 2.0 mg/dL (1.6-2.6); Potassium 4.2 mmol/L (3.3-5.1); Sodium 135 mmol/L (135-145); Total Protein 7.7 g/dL (6.5-8.0)
[2025-08-19 14:43] LABS: Acetaminophen LAB < 3 mcg/mL (<30); Salicylate < 5.0 mg/dL (15-30)
--- NOTE | 2025-08-19 14:46 | PM.IMHP ---
History of Present Illness Date of Service: 08/19/25 Attending physician on admission: Boaz Jimenez Chief Complaint: alcohol withdrawal This is a 40-year-old male with history of alcohol dependence with history of withdrawal who presents to the emergency department with alcohol withdrawal symptoms. Patient states that he called detox and they were asking him questions about his symptoms and due to the nature of his symptoms they were recommended he come to the emergency department for evaluation. In the emergency department he was tremulous and scoring high on CIWA scale. He was therefore started on phenobarbital protocol. Lab work relatively unremarkable. Patient reports drinking 1 L daily in addition to a 12 pack of beer. He smokes 2 packs of cigarettes daily and intermittently uses intravenous heroin and cocaine with his last use 2 days ago. Review of Systems Review of Systems: Yes all other systems are reviewed and are negative Constitutional: Constitutional: Denies chills and Denies fever(s) Cardiovascular: Cardiovascular: Denies chest pain and Denies dyspnea Respiratory: Respiratory: Denies cough and Denies dyspnea Gastrointestinal: Gastrointestinal: Denies abdominal pain, Reports nausea and Reports vomiting [facility] Medical History Anxious depression Suicide attempt Substance use disorder Depression Polysubstance use disorder Hypertension Bipolar 2 disorder, major depressive episode TBI (traumatic brain injury) PTSD (post-traumatic stress disorder) Family History Other No pertinent family history Surgical History History of mandibular surgery Social History Household Members: Other Household Members Other:: Lives at ex- sister's house. Housing: Homeless Housing Other:: Sober house Do you presently have visiting nurse or other home services: No Alcohol intake: current Alcohol intake frequency: 3 or more drinks per day Alcohol type: beer and hard liquor Comment: 1:1 in room Patient Tobacco Use Status: Never used Tobacco Tobacco use type: Cigarette Cigarette Packs Per Day: 1.5 Cigarettes Per Day: 30.0 Years Smoked: 28 e-Cigarette/Vaping Use: Former Use Second Hand Smoke Exposure: No Substance Use Type: Crack/Cocaine, Heroin, IV Drugs and Other service: No Sexual orientation: Straight/Heterosexual Meds Allergies Allergy/AdvReac Type Severity Reaction Status Date / Time amoxicillin (AMOXICILLIN) Allergy Unknown HIVES Verified 08/19/25 12:29 Active Medications: Current Medications Sodium Chloride (Ns) 1,000 mls @ 999 mls/hr IV .Q1H1M PEDRO Stop: 08/19/25 15:45 Pharmacy Consult (Consult Rx Etoh Phenob Im/Po) 1 each MISCELLANE ONCE PRN; Protocol PRN Reason: Consult order Phenobarbital (Phenobarbital 30 Mg Tablet) 60 mg PO BID PEDRO; Protocol Stop: 08/21/25 21:01 Phenobarbital (Phenobarbital 30 Mg Tablet) 30 mg PO BID PEDRO; Protocol Stop: 08/23/25 21:01 Phenobarbital (Phenobarbital 30 Mg Tablet) 30 mg PO DAILY PEDRO; Protocol Stop: 08/25/25 09:01 Phenobarbital Sodium (Phenobarbital Sodium 130 Mg/Ml Vial Im Q3hx2) 349 mg IM Q3H PEDRO; Protocol Stop: 08/19/25 20:01 Home Medications ?Medication ?Instructions ?Recorded ?Confirmed ?Last Taken ?Type atomoxetine 40 mg capsule 40 mg PO QAM 08/19/25 08/19/25 Unknown History bupropion HCl 300 mg 24 hr tablet, 300 mg PO DAILY 08/19/25 08/19/25 Unknown History extended release clonidine HCl 0.1 mg tablet 0.1 mg PO TID PRN Anxiety 08/19/25 08/19/25 Unknown History hydroxyzine pamoate 25 mg capsule 25 - 50 mg PO Q4H PRN Anxiety 08/19/25 08/19/25 Unknown History oxcarbazepine 300 mg tablet 300 mg PO BID 08/19/25 08/19/25 Unknown History Physical Exam Vital Signs and Narrative: Vital Signs: Last Vital Signs Temp 97.1 F 08/19/25 12:24 Pulse 86 08/19/25 14:18 Resp 15 08/19/25 14:18 BP 147/82 H 08/19/25 14:18 Pulse Ox 98 08/19/25 14:18 O2 Del Method Room Air 08/19/25 14:18 BMI result Body Mass Index 32.9 Const: Other: Sleepy but easily arousable to verbal stimuli; tremulous Orientation/consciousness: patient oriented x3 Resp: Effort & Inspection: normal respiratory effort, able to speak in complete sentences, no respiratory distress and no use of accessory muscles Cardio: Rate: regular rate GI: Inspection: No distended Palpation (GI): Soft to palpation and nontender Neuro: General: patient oriented x3, moves all extremities and CN's II-XI intact bilaterally Extrem: General: No pedal edema Results Labs 08/20/25 04:29 08/20/25 04:29 Labs: Laboratory Results - last 24 hr 08/19/25 14:15 MCV 88.9 MCH 31.1 MCHC 35.0 RDW 12.7 Plt Count 348 MPV 8.8 L Immature Gran % (Auto) 0.6 H Neut % (Auto) 74.2 H Lymph % (Auto) 16.2 L Thomas % (Auto) 7.0 Eos % (Auto) 1.6 Baso % (Auto) 0.4 Lymph # (Auto) 1.7 Thomas # (Auto) 0.8 Eos # (Auto) 0.2 Baso # (Auto) 0.0 Abs Immat Gran (auto) 0.06 H Absolute Neuts (auto) 8.0 Absolute Nucleated RBC 0.000 Nucleated RBC % (auto) 0.0 Anion Gap 13 Estim Creat Clear Calc 161.7 Estimated GFR > 60 Random Glucose 100 Calcium 8.9 Magnesium 2.0 Total Bilirubin 0.8 AST 70 H ALT 83 H Alkaline Phosphatase 104 Total Protein 7.7 Albumin 4.3 Lipase 6 L Salicylates < 5.0 L Acetaminophen < 3 Ethyl Alcohol 11 Assessment and Plan (1) Alcohol use disorder: Status: Acute Plan This is a 40-year-old male with history of polysubstance dependence, bipolar disorder, PTSD, TBI who presented to the emergency department with alcohol withdrawal symptoms seeking detox alcohol dependence with acute alcohol withdrawal Phenobarbital protocol and CIWA thiamine, folic acid IVF addiction medicine consult polysubstance use tox screen pending no longer on Methadone Alcoholic and HCV steatohepatitis LFTs at baseline Outpatient follow-up Morbid obesity Weight loss recommended Bipolar, PTSD continue baseline meds DVT prophylaxis with Lovenox Full Code Patient with active withdrawal, therefore, expected require at least 2 midnights inpatient. Quality Stroke Does the patient have a stroke diagnosis?: No VTE Prior VTE?: No VTE Risk Level:: Medical - moderate - high VTE Device Contraindication: Treatment Not Indicated VTE Drug Contraindication: N/A - Med Ordered
[2025-08-19] MEDS: Lactated Ringers 1,000 ML 125 ML IVCONT ×2 (15:36→23:46)
--- NOTE | 2025-08-19 15:41 | HO.NURTONUR ---
PER RN: Admit: alcohol withdrawal, pheno protocol Alert and oriented, ambulatory Seizure precautions Ambulates to bathroom IV: US guided 18G in left upper arm Meds: LR 125 mL/hr Pheno CIWA Q4 hour No pain at this time PER MD: This is a 40-year-old male with history of alcohol dependence with history of withdrawal who presents to the emergency department with alcohol withdrawal symptoms. Patient states that he called detox and they were asking him questions about his symptoms and due to the nature of his symptoms they were recommended he come to the emergency department for evaluation. In the emergency department he was tremulous and scoring high on CIWA scale. He was therefore started on phenobarbital protocol. Lab work relatively unremarkable. Patient reports drinking 1 L daily in addition to a 12 pack of beer. He smokes 2 packs of cigarettes daily and intermittently uses intravenous heroin and cocaine with his last use 2 days ago.
--- NOTE | 2025-08-19 16:04 | PHA.MEDREC ---
Pharmacy Consult ? Medication Reconciliation Pharmacy has completed the medication reconciliation. Spoke to patient at bedside, poor historian. Does not know what he takes and says he hasn't taken anything in over a week. Utilized most recent claims
[2025-08-19 16:37] VITALS: BP 148/91; PULSE 82; RESP 14; TEMP 36.4; O2SAT 97
[2025-08-19] MEDS: PHENobarbitaL sodium 130 MG/ML VIAL IM Q3Hx2 349 MG IM ×2 (16:38→20:16)
--- NOTE | 2025-08-19 16:42 | MHC.RECOVRN ---
Checked in with pt. in ED 21 following ACS referral received. Pt had report of opiate and cocaine use and wanted to assess for opiate W/D. Pt lying in bed somewhat uncomfortable but denied any opiate W/D. Reports he only used x 1 the other day and is not W/D from opiates. Will F/U with patient and provide full assessment once more comfortable/stable. ACS available PRN
--- NOTE | 2025-08-19 19:55 | PC.NURSE ---
Pheno not in ED pxyis, med requested from pharmacy Plan of care ongoing.
[2025-08-19 20:27] VITALS: BP 144/82; PULSE 89; RESP 14; TEMP 36.4; O2SAT 98
--- NOTE | 2025-08-19 20:33 | PC.NURSE ---
Med rec'd from pharmacy Pt medicated per nov Pt given dinner tray, 100% eaten Pt requested and given drink Pt reporting 03/15 headache Plan of care ongoing.
[2025-08-19 21:56] VITALS: BP 144/82
--- NOTE | 2025-08-19 23:52 | PC.NURSE ---
Pt medicated per [facility] Plan of care ongoing.
[2025-08-20] VITALS (13 sets, daily range): BP systolic 110–170; BP diastolic 59–87; PULSE 80–92; RESP 11–20; TEMP 36.4–36.8; O2SAT 95–98
[2025-08-20 04:41] LABS: Hematocrit 35.9 % (42.0-52.0); Hemoglobin 12.6 g/dl (14.0-18.0); Mean Corpuscular HGB Conc 35.1 g/dl (31.0-36.0); Mean Corpuscular Hemoglobin 31.0 pg (27.0-33.0); Mean Corpuscular Volume 88.2 fL (80.0-98.0); NRBC Abs Auto 0.000 X10*3/uL (0.0-0.012); NRBC Pct Auto 0.0 /100WBC (0.0-0.2); Platelet Count 265 X10*3/uL (160-400); Red Blood Count 4.07 X10*6/uL (4.60-5.80); White Blood Count 5.7 X10*3/uL (4.8-10.8)
[2025-08-20 04:59] LABS: Anion Gap 11 (12-20); Blood Urea Nitrogen 13 mg/dL (9-16); Calcium 8.5 mg/dL (8.4-10.2); Carbon Dioxide 25 mmol/L (22-29); Chloride 102 mmol/L (96-108); Creatinine Clr Calc Pharmacy 173.0; Estimated Glomerular Filt Rate > 60; Magnesium 2.0 mg/dL (1.6-2.6); Potassium 3.8 mmol/L (3.3-5.1); Sodium 134 mmol/L (135-145)
--- NOTE | 2025-08-20 07:42 | MHC.EDTECH ---
Answered call horne, patient requesting to use bathroom, patient disconnected from IV pump by RN, urine cup provided to patient by this tech, patient went to bathroom and did not provide urine sample. RN aware.
[2025-08-20] MEDS: buPROPion HCl XL 300 MG TAB.ER.24H PO (07:51)
[2025-08-20] MEDS: Lactated Ringers 1,000 ML 125 ML IVCONT (07:53)
--- NOTE | 2025-08-20 09:06 | MHC.EDTECH ---
Patient was seen walking towards bathroom, this tech provided urine cup to patient. Patient again returned from bathroom without urine sample. RN aware.
--- NOTE | 2025-08-20 09:37 | HO.ADDICT_ITS ---
History of Present Illness Date of Service: 08/20/2025 Chief Complaint: Alcohol Withdrals Reason for Consult: AUD HPI Narrative: Patient is a 40 year old male with history of Bipolar disorder, OUD and AUD Presented to [facility] reporting alcohol withdrawal. He reported drinking approx a litre of vodka daily along with 12 beers. History of alcohol withdrawal seizures and DTs --phenobarbital initiated and patient admitted. Patient seen in room 21 of main ED. He is awake, alert, enagaged in interview. Reporting chills, stomach cramps, anxiety and restlessness. He reports that in addition to alcohol, he has been using approx 5 bundles of heroin/fentanyl daily for the past several months Acknowledges that he is also experiencing opiate withdrawal --initially declining MOUD to address withdrawal stating he does not wish to resume treatment for OUD outpatient, I don't want to be on methadone when I leave here T/W advised patient that withdrawal could be addressed and methadone tapered prior to d/c However, also advised patient of high risk for overdose with no MOUD and using opiates again given decrease in tolerance, patient verbalized understanding He states that he does not want to continue using or drinking and actually has plans to move from this area up on discharge. He appears anxious, slightly restless, visible tremor, rhinorrhea and lacrimation noted Past Psychiatric History: Hx of multiple psychiatric inpatient admissions. CSS, detox. Outpt providers through [facility]. Medical Evaluation Reviewed: Yes Review of Systems Constitutional: Reports as per HPI Diagnostics Vital Signs (24Hr): Vital Signs - 24 hr 08/19/25 12:24 08/19/25 13:00 08/19/25 14:18 Temperature 97.1 F Pulse Rate 98 85 86 Respiratory Rate 22 H 10 L 15 Blood Pressure 148/89 H 123/102 H 147/82 H Pulse Oximetry 96 97 98 Oxygen Delivery Method Room Air Room Air Room Air 08/19/25 16:37 08/19/25 20:27 08/19/25 21:56 Temperature 97.6 F 97.5 F Pulse Rate 82 89 Respiratory Rate 14 14 Blood Pressure 148/91 H 144/82 H 144/82 H Pulse Oximetry 97 98 Oxygen Delivery Method Room Air Room Air 08/20/25 00:00 08/20/25 02:00 08/20/25 04:00 Temperature Pulse Rate 80 84 82 Respiratory Rate 15 16 15 Blood Pressure Pulse Oximetry Oxygen Delivery Method 08/20/25 07:34 08/20/25 07:51 Temperature 98.2 F Pulse Rate 91 Respiratory Rate 11 L Blood Pressure 110/71 110/71 Pulse Oximetry 97 Oxygen Delivery Method BMI result Body Mass Index 32.9 Labs 08/20/25 04:29 08/20/25 04:29 Labs: Laboratory Results - last 48 hr 08/19/25 08/20/25 14:15 04:29 WBC 10.7 5.7 RBC 4.31 L 4.07 L Hgb 13.4 L 12.6 L Hct 38.3 L 35.9 L MCV 88.9 88.2 MCH 31.1 31.0 MCHC 35.0 35.1 RDW 12.7 13.0 Plt Count 348 265 MPV 8.8 L 8.9 L Immature Gran % (Auto) 0.6 H Neut % (Auto) 74.2 H Lymph % (Auto) 16.2 L Burke % (Auto) 7.0 Eos % (Auto) 1.6 Baso % (Auto) 0.4 Lymph # (Auto) 1.7 Burke # (Auto) 0.8 Eos # (Auto) 0.2 Baso # (Auto) 0.0 Abs Immat Gran (auto) 0.06 H Absolute Neuts (auto) 8.0 Absolute Nucleated RBC 0.000 0.000 Nucleated RBC % (auto) 0.0 0.0 Sodium 135 134 L Potassium 4.2 3.8 Chloride 101 102 Carbon Dioxide 25 25 Anion Gap 13 11 L BUN 17 H 13 Creatinine 0.77 0.72 Estim Creat Clear Calc 161.7 173.0 Estimated GFR > 60 > 60 Random Glucose 100 121 H Calcium 8.9 8.5 Magnesium 2.0 2.0 Total Bilirubin 0.8 AST 70 H ALT 83 H Alkaline Phosphatase 104 Total Protein 7.7 Albumin 4.3 Lipase 6 L Salicylates < 5.0 L Acetaminophen < 3 Ethyl Alcohol 11 Mental Status Exam Mental Status Exam Level of Consciousness: Awake, Appropriate and Alert Patient Behavior: Appropriate Affect Description: Anxious Speech Pattern: Clear Hallucinations: None Judgement: Fair Medications Medications Current Medications Acetaminophen (Acetaminophen 325 Mg Tablet) 650 mg PO Q6H PRN PRN Reason: Pain, Mild 1-3,fever,headache Bupropion HCl (Bupropion Hcl Xl 300 Mg Tab.Er.24h) 300 mg PO DAILY [facility] Last Admin: 08/20/25 07:51 Dose: 300 mg Calcium Carbonate (Calcium Carbonate 750 Mg Tab.Chew) 750 mg PO Q4H PRN PRN Reason: Heartburn Last Admin: 08/20/25 07:51 Dose: 750 mg Clonidine HCl (Clonidine Hcl 0.1 Mg Tablet) 0.1 mg PO TID PRN; Protocol PRN Reason: Anxiety Last Admin: 08/20/25 07:51 Dose: 0.1 mg Enoxaparin Sodium (Enoxaparin Sodium 40 Mg/0.4 Ml Syringe) 40 mg SUBCUT Q24H [facility] Last Admin: 08/19/25 15:37 Dose: 40 mg Famotidine (Famotidine/Pf 20 Mg/2 Ml Vial) 20 mg IVPUSH DAILY [facility] Last Admin: 08/20/25 07:50 Dose: 20 mg Folic Acid (Folic Acid 1 Mg Tablet) 1 mg PO DAILY [facility] Last Admin: 08/20/25 07:51 Dose: 1 mg Hydroxyzine HCl (Hydroxyzine Hcl 25 Mg Tablet) 25 mg PO Q6H PRN PRN Reason: Anxiety Last Admin: 08/20/25 07:50 Dose: 25 mg Lactated Ringer's (Lr) 1,000 mls @ 125 mls/hr IVCONT .Q8H [facility] Last Admin: 08/20/25 07:53 Dose: 125 mls/hr Magnesium Hydroxide (Milk Of Magnesia 30 Ml Oral.Susp) 30 ml PO DAILY PRN PRN Reason: Constipation Melatonin (Melatonin 3 Mg Tablet) 6 mg PO BEDTIME PRN PRN Reason: Insomnia Oxcarbazepine (Oxcarbazepine 300 Mg Tablet) 300 mg PO BID [facility] Last Admin: 08/20/25 07:51 Dose: 300 mg Pharmacy Consult (Consult Rx Etoh Phenob Im/Po) 1 each MISCELLANE ONCE PRN; Protocol PRN Reason: Consult order Phenobarbital (Phenobarbital 30 Mg Tablet) 60 mg PO BID [facility]; Protocol Stop: 08/21/25 21:01 Last Admin: 08/20/25 07:51 Dose: 60 mg Phenobarbital (Phenobarbital 30 Mg Tablet) 30 mg PO BID [facility]; Protocol Stop: 08/23/25 21:01 Phenobarbital (Phenobarbital 30 Mg Tablet) 30 mg PO DAILY [facility]; Protocol Stop: 08/25/25 09:01 Prazosin HCl (Prazosin Hcl 1 Mg Capsule) 2 mg PO BEDTIME [facility]; Protocol Last Admin: 08/19/25 21:56 Dose: 2 mg Sodium Chloride (0.9 % Sodium Chloride Flush 3 Ml Syringe) 3 ml IVFLUSH QSHIFT [facility] Last Admin: 08/20/25 07:22 Dose: Not Given Thiamine HCl (Thiamine Hcl 100 Mg Tablet) 100 mg PO DAILY [facility] Last Admin: 08/20/25 07:51 Dose: 100 mg Allergies Allergies Allergy/AdvReac Type Severity Reaction Status Date / Time amoxicillin (AMOXICILLIN) Allergy Unknown HIVES Verified 08/19/25 12:29 Assessment & Plan Assessment & Plan (1) Alcohol use disorder: Status: Acute Code(s): F10.90 - Alcohol use, unspecified, uncomplicated Assessment and Plan: * acute withdrawal --phenobarbital taper in place * PRN adjunct medications for stomach discomfort and anxiety (2) Opioid use disorder: Status: Acute Code(s): F11.90 - Opioid use, unspecified, uncomplicated Assessment and Plan: * acute withdrawal * methadone 40mg X1--will taper per patient request (does not wish to remain on MOUD) * overdose prevention discussion * will continue to follow during admission Total time managing care of this patient today __35__ minutes. PMFSH Past Medical History Medical History Anxious depression Suicide attempt Substance use disorder Depression Polysubstance use disorder Hypertension Bipolar 2 disorder, major depressive episode TBI (traumatic brain injury) PTSD (post-traumatic stress disorder) Family History Family History Other No pertinent family history Surgical History Surgical History History of mandibular surgery Social History Social History Household Members: Other Household Members Other:: Lives at ex- sister's house. Housing: House Housing Other:: Sober house Do you presently have visiting nurse or other home services: No Alcohol intake: current Alcohol intake frequency: 3 or more drinks per day Alcohol type: beer and hard liquor Comment: 1:1 in room Patient Tobacco Use Status: Never used Tobacco Tobacco use type: Cigarette Cigarette Packs Per Day: 1.5 Cigarettes Per Day: 30.0 Years Smoked: 28 Smoked in Last 30 Days: Yes e-Cigarette/Vaping Use: Former Use Second Hand Smoke Exposure: Yes Use of substances other than those prescribed or required for medical reasons: No Substance Use Type: Crack/Cocaine, Heroin, IV Drugs and Other Advance Directives: No Advance Directives Information Provided: Yes Nutrition Risks: No Nutritional Risk service: No Sexual orientation: Straight/Heterosexual
[2025-08-20] MEDS: methADONE HCl 20 MG/2 ML ORAL.CONC 40 MG PO (10:23)
[2025-08-20 10:24] LABS: Appearance Urine Clear; Glucose Urine UA Negative (Negative); PH 7.5 (5.0-9.0); Specific Gravity - Urine <= 1.005 (1.005-1.025)
[2025-08-20 10:45] LABS: Cannabinoid Screen Urine Not Detected (Not Detect)
--- NOTE | 2025-08-20 12:21 | MHC.CM.PN ---
Patient is listed as homeless; he states that he has a home in [facility], where he lives with his Girlfriend. Patient will benefit from a Recovery Team Consult r/t ETOH, IV Heroin & Cocaine to assist with disposition. CM has initiated and will follow for dc planning. PCP is Dr. Milo Joshi and Patient will need assist with transport at dc.
--- NOTE | 2025-08-20 13:19 | PC.NURSE ---
Requested & given coffee with 2 creams, 2 sugars. Eating lunch at this time. Lights dimmed for patient comfort. Awaiting bed assignment at this time.
[2025-08-20] MEDS: diazePAM 10 MG/2 ML CARTRIDGE IVPUSH ×2 (13:58→21:01)
--- NOTE | 2025-08-20 15:13 | MHC.RECOVRN ---
Met with pt briefly in ED21 to discuss if methadone dose is sufficient. Pt stated he felt alcohol withdrawal symptoms more intensely but also felt opioid withdrawal and requested an additional dose of methadone. Pt emphasizing that he does not wish to stay on methadone long-term and wants to be tapered. Pt did appear restless and was rocking back and forth but also requested for coffee. Provider and primary RN were made aware.
--- NOTE | 2025-08-20 15:29 | MHC.RECOVRN ---
Went to meet w/ pt per provider request to discuss if methadone dose is sufficient Pt very uncomfortable, restless with tearful eyes. Pt stated he felt alcohol withdrawal symptoms more intensely but also felt opioid withdrawal and requested an additional dose of methadone. Pt emphasizing that he does not wish to stay on methadone long-term and wants to be tapered. Pt did appear restless and was rocking back and forth but also requested for coffee. Provider and primary RN were made aware. corporate administrator will follow up w/pt again at a later time.
[2025-08-20] MEDS: 0.9 % Sodium Chloride Flush 3 ML SYRINGE IVFLUSH ×2 (16:11→21:01)
--- NOTE | 2025-08-20 16:56 | P.PNIM_ITS ---
Subjective Subjective Date of Service: 08/20/25 Interval History: No seizure activity noted. Supplemental Valium given in addition to phenobarb protocol Review of Systems Denies chest pain Denies shortness of breath Denies nausea vomiting diarrhea Denies fever chills Physical Exam 2 Vital Signs: Vital Signs: Last Vital Signs Temp 98.2 F 08/20/25 13:55 Pulse 90 08/20/25 13:55 Resp 20 08/20/25 13:55 BP 127/67 08/20/25 16:10 Pulse Ox 96 08/20/25 13:55 O2 Del Method Room Air 08/20/25 13:55 BMI result Body Mass Index 32.9 Const: Other: Awake alert tremulous Resp: Other: Clear to auscultation bilaterally no rales rhonchi or wheezes Cardio: Other: No S4; positive S1-S2; no S3 murmurs rubs or gallops GI: Other: Soft nontender nondistended normoactive bowel sounds Extrem: Other: No edema bilaterally Objective Data Active Medications Acetaminophen (Acetaminophen 325 Mg Tablet) 650 mg PO Q6H PRN PRN Reason: Pain, Mild 1-3,fever,headache Last Admin: 08/20/25 10:22 Dose: 650 mg Documented By: ROBERTA Bupropion HCl (Bupropion Hcl Xl 300 Mg Tab.Er.24h) 300 mg PO DAILY [facility] Last Admin: 08/20/25 07:51 Dose: 300 mg Documented By: ROBERTA Calcium Carbonate (Calcium Carbonate 750 Mg Tab.Chew) 750 mg PO Q4H PRN PRN Reason: Heartburn Last Admin: 08/20/25 07:51 Dose: 750 mg Documented By: ROBERTA Clonidine HCl (Clonidine Hcl 0.1 Mg Tablet) 0.1 mg PO TID PRN; Protocol PRN Reason: Anxiety Last Admin: 08/20/25 16:10 Dose: 0.1 mg Documented By: BRISSA Diazepam (Diazepam 10 Mg/2 Ml Cartridge) 10 mg IVPUSH Q4H PRN PRN Reason: Tremors Last Admin: 08/20/25 13:58 Dose: 10 mg Documented By: BRISSA Enoxaparin Sodium (Enoxaparin Sodium 40 Mg/0.4 Ml Syringe) 40 mg SUBCUT Q24H [facility] Last Admin: 08/20/25 16:10 Dose: 40 mg Documented By: BRISSA Famotidine (Famotidine/Pf 20 Mg/2 Ml Vial) 20 mg IVPUSH DAILY [facility] Last Admin: 08/20/25 07:50 Dose: 20 mg Documented By: ROBERTA Folic Acid (Folic Acid 1 Mg Tablet) 1 mg PO DAILY [facility] Last Admin: 08/20/25 07:51 Dose: 1 mg Documented By: ROBERTA Hydroxyzine HCl (Hydroxyzine Hcl 25 Mg Tablet) 25 mg PO Q6H PRN PRN Reason: Anxiety Last Admin: 08/20/25 16:10 Dose: 25 mg Documented By: BRISSA Magnesium Hydroxide (Milk Of Magnesia 30 Ml Oral.Susp) 30 ml PO DAILY PRN PRN Reason: Constipation Melatonin (Melatonin 3 Mg Tablet) 6 mg PO BEDTIME PRN PRN Reason: Insomnia Methadone HCl (Methadone Hcl 20 Mg/2 Ml Oral.Conc) 35 mg PO ONCE ONE Stop: 08/21/25 08:01 Ondansetron HCl (Ondansetron Hcl 4 Mg/2 Ml Vial) 4 mg IVPUSH Q4H PRN PRN Reason: Nausea and Vomiting Last Admin: 08/20/25 16:10 Dose: 4 mg Documented By: BRISSA Oxcarbazepine (Oxcarbazepine 300 Mg Tablet) 300 mg PO BID [facility] Last Admin: 08/20/25 07:51 Dose: 300 mg Documented By: ROBERTA Pharmacy Consult (Consult Rx Etoh Phenob Im/Po) 1 each MISCELLANE ONCE PRN; Protocol PRN Reason: Consult order Phenobarbital (Phenobarbital 30 Mg Tablet) 60 mg PO BID [facility]; Protocol Stop: 08/21/25 21:01 Last Admin: 08/20/25 07:51 Dose: 60 mg Documented By: ROBERTA Phenobarbital (Phenobarbital 30 Mg Tablet) 30 mg PO BID [facility]; Protocol Stop: 08/23/25 21:01 Phenobarbital (Phenobarbital 30 Mg Tablet) 30 mg PO DAILY [facility]; Protocol Stop: 08/25/25 09:01 Prazosin HCl (Prazosin Hcl 1 Mg Capsule) 2 mg PO BEDTIME [facility]; Protocol Last Admin: 08/19/25 21:56 Dose: 2 mg Documented By: CROW Sodium Chloride (0.9 % Sodium Chloride Flush 3 Ml Syringe) 3 ml IVFLUSH QSHIFT [facility] Last Admin: 08/20/25 16:11 Dose: 3 ml Documented By: BRISSA Thiamine HCl (Thiamine Hcl 100 Mg Tablet) 100 mg PO DAILY [facility] Last Admin: 08/20/25 07:51 Dose: 100 mg Documented By: ROBERTA Labs 08/20/25 04:29 08/20/25 04:29 Labs: Laboratory Results - last 24 hr 08/20/25 08/20/25 04:29 10:18 MCV 88.2 MCH 31.0 MCHC 35.1 RDW 13.0 Plt Count 265 MPV 8.9 L Absolute Nucleated RBC 0.000 Nucleated RBC % (auto) 0.0 Anion Gap 11 L Estim Creat Clear Calc 173.0 Estimated GFR > 60 Random Glucose 121 H Calcium 8.5 Magnesium 2.0 Urine Color Yellow Urine Appearance Clear Urine pH 7.5 Ur Specific Milo <= 1.005 Urine Protein Negative Urine Glucose (UA) Negative Urine Ketones Negative Urine Blood Negative Urine Nitrite Negative Ur Leukocyte Esterase Negative Urine Opiates Screen Not Detected Ur Buprenorphine Scrn Not Detected Ur Oxycodone Screen Not Detected Urine Methadone Screen Not Detected Urine Fentanyl Screen POSITIVE H Ur Barbiturates Screen POSITIVE H Ur Phencyclidine Scrn Not Detected Ur Amphetamines Screen Not Detected U Benzodiazepines Scrn Not Detected Urine Cocaine Screen POSITIVE H U Marijuana (THC) Screen Not Detected Assessment and Plan (1) Alcohol use disorder: Status: Acute (2) PTSD (post-traumatic stress disorder): Status: Chronic Plan This is a 40-year-old male with history of polysubstance dependence, bipolar disorder, PTSD, TBI who presented to the emergency department with alcohol withdrawal symptoms seeking detox 1.Alcohol dependence with acute alcohol withdrawal -Phenobarbital protocol and CIWA -thiamine, folic acid -dc IVF... Taking adequate p.o. -addiction medicine consult appreciate 2.Alcoholic and HCV steatohepatitis -LFTs at baseline 3.Bipolar, PTSD -stable and well compensated DVT prophylaxis with Lovenox Full Code Patient with active withdrawal, therefore, expected require at least 2 midnights inpatient. Quality Stroke Does the patient have a stroke diagnosis?: No VTE Prior VTE?: No VTE Risk Level:: Medical - moderate - high VTE Device Contraindication: Treatment Not Indicated VTE Drug Contraindication: N/A - Med Ordered
--- NOTE | 2025-08-20 17:28 | PC.NURSE ---
Pt refusing bed alarm is pleasant and using call horne for assistance appropriately. Pt educated on the significance of high fall risk precautions. Steady gait noted. Call horne within reach.
[2025-08-20] MEDS: Triamcinolone Acet 0.1 % Cream 15 GM TUBE 1 APPL TOPICAL (23:07)
[2025-08-21] VITALS (9 sets, daily range): BP systolic 124–148; BP diastolic 58–87; PULSE 74–94; RESP 17–18; TEMP 36.7–37; O2SAT 97–99
[2025-08-21] MEDS: diazePAM 10 MG/2 ML CARTRIDGE IVPUSH (04:29)
[2025-08-21 07:18] LABS: MANUAL DIFF FLAG NO
[2025-08-21 07:22] LABS: Hematocrit 34.7 % (42.0-52.0); Hemoglobin 12.2 g/dl (14.0-18.0); Imm Gran Abs Auto 0.02 X10*3/uL (0.00-0.03); Imm Gran Pct Auto 0.4 % (0.0-0.4); Lymphocytes Absolute Auto 1.3 X10*3/uL (1.2-4.9); Mean Corpuscular HGB Conc 35.2 g/dl (31.0-36.0); Mean Corpuscular Hemoglobin 31.6 pg (27.0-33.0); Mean Corpuscular Volume 89.9 fL (80.0-98.0); NRBC Abs Auto 0.000 X10*3/uL (0.0-0.012); NRBC Pct Auto 0.0 /100WBC (0.0-0.2); Platelet Count 241 X10*3/uL (160-400); Red Blood Count 3.86 X10*6/uL (4.60-5.80); White Blood Count 5.0 X10*3/uL (4.8-10.8)
[2025-08-21] MEDS: 0.9 % Sodium Chloride Flush 3 ML SYRINGE IVFLUSH ×3 (07:36→22:13)
[2025-08-21] MEDS: methADONE HCl 20 MG/2 ML ORAL.CONC 35 MG PO (07:37)
[2025-08-21] MEDS: buPROPion HCl XL 300 MG TAB.ER.24H PO (07:37)
[2025-08-21] MEDS: Triamcinolone Acet 0.1 % Cream 15 GM TUBE 1 APPL TOPICAL (07:48)
[2025-08-21 08:04] LABS: Alanine Aminotransferase 79 U/L (0-40); Albumin Level 3.6 g/dL (3.5-5.0); Alkaline Phosphatase 89 U/L (39-117); Anion Gap 12 (12-20); Aspartate Amino Transferase 73 U/L (5-37); Blood Urea Nitrogen 11 mg/dL (9-16); Calcium 8.7 mg/dL (8.4-10.2); Carbon Dioxide 23 mmol/L (22-29); Chloride 106 mmol/L (96-108); Creatinine Clr Calc Pharmacy 170.6; Estimated Glomerular Filt Rate > 60; Magnesium 2.0 mg/dL (1.6-2.6); Potassium 4.6 mmol/L (3.3-5.1); Sodium 136 mmol/L (135-145); Total Protein 6.6 g/dL (6.5-8.0)
--- NOTE | 2025-08-21 17:59 | MHC.RECOVRN ---
Addiction Consult received for pt admitted with alcohol withdrawal and opiate use. Recovery evaluation completed. Please see for additional details.? The patient expressed that he did not want to be discharged on Methadone but did agree to a taper to address opiate withdrawal symptoms. Pt was initiated on 40mg methadone with a plan to decrease by 5mg daily. Pt is in agreement.? Pt states he has an AA sponsor and Care Transition Mgr with whom he will reconnect with upon discharge. He also states he will need transportation to [place] so he can return home to his .? Pt provided ACS team contact information for questions or concerns.? ACS team available as needed for ongoing support
--- NOTE | 2025-08-21 18:51 | HO.PM.IMPN ---
Subjective Subjective Date of Service: 08/21/25 Interval History: No seizure, Physical Exam Vital Signs: Vital Signs: Last Vital Signs Temp 98.6 F 08/21/25 15:02 Pulse 94 08/21/25 15:02 Resp 18 08/21/25 15:02 BP 136/84 08/21/25 15:02 Pulse Ox 99 08/21/25 15:02 O2 Del Method Room Air 08/21/25 15:02 BMI result Body Mass Index 32.9 Const: Other: Awake alert tremulous Resp: Other: Clear to auscultation bilaterally no rales rhonchi or wheezes Cardio: Other: No S4; positive S1-S2; no S3 murmurs rubs or gallops GI: Other: Soft nontender nondistended normoactive bowel sounds Extrem: Other: No edema bilaterally Objective Data Active Medications Acetaminophen (Acetaminophen 325 Mg Tablet) 650 mg PO Q6H PRN PRN Reason: Pain, Mild 1-3,fever,headache Last Admin: 08/21/25 04:29 Dose: 650 mg Documented By: DUARTE Bupropion HCl (Bupropion Hcl Xl 300 Mg Tab.Er.24h) 300 mg PO DAILY [facility] Last Admin: 08/21/25 07:37 Dose: 300 mg Documented By: RICK Calcium Carbonate (Calcium Carbonate 750 Mg Tab.Chew) 750 mg PO Q4H PRN PRN Reason: Heartburn Last Admin: 08/20/25 07:51 Dose: 750 mg Documented By: ROBERTA Clonidine HCl (Clonidine Hcl 0.1 Mg Tablet) 0.1 mg PO TID PRN; Protocol PRN Reason: Anxiety Last Admin: 08/21/25 04:29 Dose: 0.1 mg Documented By: DUARTE Diazepam (Diazepam 10 Mg/2 Ml Cartridge) 10 mg IVPUSH Q4H PRN PRN Reason: Tremors Last Admin: 08/21/25 04:29 Dose: 10 mg Documented By: DUARTE Enoxaparin Sodium (Enoxaparin Sodium 40 Mg/0.4 Ml Syringe) 40 mg SUBCUT Q24H [facility] Last Admin: 08/21/25 16:52 Dose: Not Given Documented By: RICK Non-Admin Reason: Patient Refused Famotidine (Famotidine/Pf 20 Mg/2 Ml Vial) 20 mg IVPUSH DAILY [facility] Last Admin: 08/21/25 07:37 Dose: 20 mg Documented By: RICK Folic Acid (Folic Acid 1 Mg Tablet) 1 mg PO DAILY [facility] Last Admin: 08/21/25 07:37 Dose: 1 mg Documented By: RICK Hydroxyzine HCl (Hydroxyzine Hcl 25 Mg Tablet) 25 mg PO Q6H PRN PRN Reason: Anxiety Last Admin: 08/20/25 16:10 Dose: 25 mg Documented By: BRISSA Magnesium Hydroxide (Milk Of Magnesia 30 Ml Oral.Susp) 30 ml PO DAILY PRN PRN Reason: Constipation Melatonin (Melatonin 3 Mg Tablet) 6 mg PO BEDTIME PRN PRN Reason: Insomnia Nicotine Polacrilex (Nicotine Polacrilex 2 Mg Gum) 2 mg BUCCAL Q2H PRN PRN Reason: Nicotine Cravings Last Admin: 08/21/25 12:45 Dose: 2 mg Documented By: RICK Ondansetron HCl (Ondansetron Hcl 4 Mg/2 Ml Vial) 4 mg IVPUSH Q4H PRN PRN Reason: Nausea and Vomiting Last Admin: 08/21/25 18:48 Dose: 4 mg Documented By: RICK Oxcarbazepine (Oxcarbazepine 300 Mg Tablet) 300 mg PO BID [facility] Last Admin: 08/21/25 07:37 Dose: 300 mg Documented By: RICK Pharmacy Consult (Consult Rx Etoh Phenob Im/Po) 1 each MISCELLANE ONCE PRN; Protocol PRN Reason: Consult order Phenobarbital (Phenobarbital 30 Mg Tablet) 60 mg PO BID [facility]; Protocol Stop: 08/21/25 21:01 Last Admin: 08/21/25 07:37 Dose: 60 mg Documented By: RICK Phenobarbital (Phenobarbital 30 Mg Tablet) 30 mg PO BID [facility]; Protocol Stop: 08/23/25 21:01 Phenobarbital (Phenobarbital 30 Mg Tablet) 30 mg PO DAILY [facility]; Protocol Stop: 08/25/25 09:01 Prazosin HCl (Prazosin Hcl 1 Mg Capsule) 2 mg PO BEDTIME [facility]; Protocol Last Admin: 08/20/25 21:00 Dose: 2 mg Documented By: DUARTE Sodium Chloride (0.9 % Sodium Chloride Flush 3 Ml Syringe) 3 ml IVFLUSH QSHIFT [facility] Last Admin: 08/21/25 17:00 Dose: 3 ml Documented By: RICK Thiamine HCl (Thiamine Hcl 100 Mg Tablet) 100 mg PO DAILY [facility] Last Admin: 08/21/25 07:37 Dose: 100 mg Documented By: RICK Triamcinolone Acetonide (Triamcinolone Acet 0.1 % Cream 15 Gm Tube) 1 appl TOPICAL DAILY [facility]; Protocol Last Admin: 08/21/25 07:48 Dose: 1 appl Documented By: RICK Labs 08/21/25 07:09 08/21/25 07:09 Labs: Laboratory Results - last 24 hr 08/21/25 07:09 MCV 89.9 MCH 31.6 MCHC 35.2 RDW 12.7 Plt Count 241 MPV 9.0 L Immature Gran % (Auto) 0.4 Neut % (Auto) 60.5 Lymph % (Auto) 25.4 Branch % (Auto) 10.3 Eos % (Auto) 3.0 Baso % (Auto) 0.4 Lymph # (Auto) 1.3 Branch # (Auto) 0.5 Eos # (Auto) 0.2 Baso # (Auto) 0.0 Abs Immat Gran (auto) 0.02 Absolute Neuts (auto) 3.0 Absolute Nucleated RBC 0.000 Nucleated RBC % (auto) 0.0 Anion Gap 12 Estim Creat Clear Calc 170.6 Estimated GFR > 60 Fasting Glucose 108 H Calcium 8.7 Magnesium 2.0 Total Bilirubin 0.3 AST 73 H ALT 79 H Alkaline Phosphatase 89 Total Protein 6.6 Albumin 3.6 Assessment and Plan (1) Alcohol use disorder: Status: Acute (2) PTSD (post-traumatic stress disorder): Status: Chronic Plan 40-year-old male with history of polysubstance dependence, bipolar disorder, PTSD, TBI who presented to the emergency department with alcohol withdrawal symptoms seeking detox Alcohol dependence with acute alcohol withdrawal Phenobarbital protocol and CIWA thiamine, folic acid addiction med following Alcoholic and HCV steatohepatitis LFTs at baseline Bipolar, PTSD, no decompensation DVT prophylaxis with Lovenox Full Code Quality Stroke Does the patient have a stroke diagnosis?: No VTE Prior VTE?: No VTE Risk Level:: Medical - moderate - high VTE Device Contraindication: Treatment Not Indicated VTE Drug Contraindication: N/A - Med Ordered
[2025-08-22 05:36] VITALS: BP 118/66; PULSE 75; TEMP 36.2; O2SAT 98
[2025-08-22 07:33] VITALS: BP 105/57; PULSE 63; RESP 20; TEMP 36.3; O2SAT 97
[2025-08-22] MEDS: buPROPion HCl XL 300 MG TAB.ER.24H PO (08:32)
[2025-08-22] MEDS: 0.9 % Sodium Chloride Flush 3 ML SYRINGE IVFLUSH (08:33)
[2025-08-22] MEDS: methADONE HCl 20 MG/2 ML ORAL.CONC 30 MG PO (08:33)
--- NOTE | 2025-08-22 09:32 | PM.DS ---
DS: Providers Provider Date of admission: 08/19/25 14:46 Date of discharge: 08/22/25 Primary care physician: Milo Joshi MD Consults: 08/19/25 15:24 Addiction Medicine Provider Routine Consulting Provider: Addiction Covering Reason for consultation: etoh dependence/withdrawal; wants detox Has provider been notified: No DS: Diagnosis Discharge Diagnosis (1) Alcohol use disorder: Status: Acute (2) PTSD (post-traumatic stress disorder): Status: Chronic DS: Summary Hospital Course Hospital Course: admission hpi Attending physician on admission: Boaz Jimenez Chief Complaint: alcohol withdrawal This is a 40-year-old male with history of alcohol dependence with history of withdrawal who presents to the emergency department with alcohol withdrawal symptoms. Patient states that he called detox and they were asking him questions about his symptoms and due to the nature of his symptoms they were recommended he come to the emergency department for evaluation. In the emergency department he was tremulous and scoring high on CIWA scale. He was therefore started on phenobarbital protocol. Lab work relatively unremarkable. Patient reports drinking 1 L daily in addition to a 12 pack of beer. He smokes 2 packs of cigarettes daily and intermittently uses intravenous heroin and cocaine with his last use 2 days ago. hospital course: The patient presented with signs and symptoms of alcohol withdrawal after discontinuing alcohol use the day prior to admission. On evaluation, he exhibited tremors and had an elevated CIWA score. His urine toxicology was positive for benzodiazepines, cocaine, and fentanyl, and he also reported ongoing opioid use. He was started on phenobarbital for alcohol withdrawal management, along with folic acid and thiamine supplementation. The addiction/recovery team evaluated him and provided resources to support sobriety. Outpatient methadone treatment was offered for opioid use disorder, but the patient declined at this time. I have personally discussed with him the health risks associated with alcohol and illicit substance use. Time Attestation Discharge Coordination Time (in mins): 45 Quality: Safe Use of Opioids Does Pt have an Active Cancer Diagnosis on the Problem List?: No Quality: Stroke Does the patient have a stroke diagnosis?: No Physical Exam Vital Signs: Vital Signs: Last Vital Signs Temp 97.3 F 08/22/25 07:33 Pulse 63 08/22/25 07:33 Resp 20 08/22/25 07:33 BP 105/57 L 08/22/25 07:33 Pulse Ox 97 08/22/25 07:33 O2 Del Method Room Air 08/22/25 07:33 BMI result Body Mass Index 32.9 Const: Other: General: AO X 3, no acute distress Resp: CTA bilateral CVS: S1,S2,RRR GI: +BS, NT, no distention Skin: No rash Neuro: motor grossly intact Psych: appropriate affect DS: Data Data Completed and Pending Completed studies during hospitalization [Text1]: Procedures Detoxification Services for Substance Abuse Treatment (11/05/23) Discharge Plan Discharge Anticipated Discharge Date/Time: 08/22/25 09:21 Patient Disposition: Home, Self-Care Discharge Diagnosis: Alohol withdrawal opioid use disorder Referrals: Milo Joshi MD [Primary Care Provider, Medical] - 1 Week Discharge Medications: Continued prazosin 2 mg capsule 2 mg PO BEDTIME 30 Days Qty: 30 0RF clonidine HCl 0.1 mg tablet 0.1 mg PO TID PRN (Reason: Anxiety) oxcarbazepine 300 mg tablet 300 mg PO BID hydroxyzine pamoate 25 mg capsule 25 - 50 mg PO Q4H PRN (Reason: Anxiety) atomoxetine 40 mg capsule 40 mg PO QAM bupropion HCl 300 mg tablet extended release 24 hr 300 mg PO DAILY Diet: Advance to usual diet Activity on Discharge: As tolerated Stand Alone Forms: Patient Portal Discharge page Print Language: Upper Sorbian Care Plan Goals: recovery from alcohol use, opioid use, cocaine Health Concerns: alcohol use, opioid use, cocaine Plan of Treatment: follow through outpatient resources given to you by our recovery team Assessment: see above
--- NOTE | 2025-08-22 10:58 | MHC.RECOVRN ---
tw met with pt to have him signed [facility] for [facility] for placement upon discharge. Pt reports he feels he will be unsuccessful upon detox completion unless his mental health symptoms of depression and anxiety are managed If I leave here I am going to go use and overdose. There's no way around that. I have no coping skills to deal with my depression or anxiety. Detox won't address that and [facility] is just a holding cell Primary RN, Addiction Medicine Provider and Attending Provider notified via [place] Text
[2025-08-22 11:56] VITALS: BP 150/75; PULSE 86; RESP 20; TEMP 36.8; O2SAT 96
--- NOTE | 2025-08-22 12:47 | MHC.CARE ---
Pt will be referred to [facility]. [facility] states they have male beds. Hospitalist in agreement.
--- NOTE | 2025-08-22 13:57 | MHC.CARE ---
T/W was informed Pt stated to nursing staff that he is refusing [facility] and is requesting D/C. Hospitalist aware.
--- NOTE | 2025-08-22 15:25 | HO.ADDICTPRO ---
Subjective Subjective Date of Service: 08/22/25 Reason For Visit: Alcohol Withdrals Interim History: Patient seen in follow up for AUD and OUD He reports he still does not feel well. Discussed methadone taper as likely contributing to that as the dose is not sufficient to manage withdrawal. Patient still not interested in continuing [facility] outpatient T/w discussed with patient possible admission to [facility] to continue methadone taper there and possible have it slow down Somewhat unrealistic expectations regarding clinical care and care settings --ie initially declined referral to [facility] to complete taper because he wanted to stay here or would rather just leave to use because I feel terrible . He continues to report anxiety, restlessness, rhinorrhea He appears anxious, however much improved from admission No diaphoresis noted. eating without issue Review of Systems Acute medical concerns: No Review of Systems Constitutional: Reports as per HPI Mental Status Exam Mental Status Exam Level of Consciousness: Awake and Appropriate Patient Behavior: Guarded and Anxious Mood Description: Anxious Speech Pattern: Clear Thought Process: Intact Thought Content: positive for Intact, positive for [place] and positive for Circumstantial Judgement: Fair Diagnostics Vital Signs (24Hr): Vital Signs - 24 hr 08/21/25 19:33 08/21/25 22:12 08/21/25 22:12 Temperature 98.2 F Pulse Rate 91 Respiratory Rate 18 Blood Pressure 148/73 H 142/67 H 142/67 H Pulse Oximetry 97 Oxygen Delivery Method Room Air 08/21/25 23:11 08/22/25 05:36 08/22/25 07:33 Temperature 98.3 F 97.2 F 97.3 F Pulse Rate 84 75 63 Respiratory Rate 18 20 Blood Pressure 124/58 L 118/66 105/57 L Pulse Oximetry 97 98 97 Oxygen Delivery Method Room Air Room Air Room Air 08/22/25 11:56 Temperature 98.3 F Pulse Rate 86 Respiratory Rate 20 Blood Pressure 150/75 H Pulse Oximetry 96 Oxygen Delivery Method Room Air BMI result Body Mass Index 32.9 Labs 08/21/25 07:09 08/21/25 07:09 Labs: Laboratory Results - last 48 hr 08/21/25 07:09 WBC 5.0 RBC 3.86 L Hgb 12.2 L Hct 34.7 L MCV 89.9 MCH 31.6 MCHC 35.2 RDW 12.7 Plt Count 241 MPV 9.0 L Immature Gran % (Auto) 0.4 Neut % (Auto) 60.5 Lymph % (Auto) 25.4 [place] % (Auto) 10.3 Eos % (Auto) 3.0 Baso % (Auto) 0.4 Lymph # (Auto) 1.3 [place] # (Auto) 0.5 Eos # (Auto) 0.2 Baso # (Auto) 0.0 Abs Immat Gran (auto) 0.02 Absolute Neuts (auto) 3.0 Absolute Nucleated RBC 0.000 Nucleated RBC % (auto) 0.0 Sodium 136 Potassium 4.6 D Chloride 106 Carbon Dioxide 23 Anion Gap 12 BUN 11 Creatinine 0.73 Estim Creat Clear Calc 170.6 Estimated GFR > 60 Fasting Glucose 108 H Calcium 8.7 Magnesium 2.0 Total Bilirubin 0.3 AST 73 H ALT 79 H Alkaline Phosphatase 89 Total Protein 6.6 Albumin 3.6 Medications Allergies Allergies Allergy/AdvReac Type Severity Reaction Status Date / Time amoxicillin (AMOXICILLIN) Allergy Unknown HIVES Verified 08/19/25 12:29 Assessment & Plan Assessment & Plan (1) Opioid use disorder: Status: Acute Code(s): F11.90 - Opioid use, unspecified, uncomplicated Assessment and Plan: 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
== END 2025-08-22 14:18 | disposition home or self-care (01) | DRG 775 ==
LOC: HO.ED 13:33 → HO.EDOVER 14:58 → HO.IMC 08-20 15:25
PROVIDERS: Hospitalist; Physician Assistant Medical; Admitting Provider Physician Assistant Medical; Emergency Provider Emergency Medicine; PCP Internal Medicine; Visit Provider Internal Medicine
DX: F10.239 Alcohol dependence with withdrawal, unspecified (principal); K75.81 Nonalcoholic steatohepatitis (NASH); F31.9 Bipolar disorder, unspecified; K70.0 Alcoholic fatty liver; F19.90 Other psychoactive substance use, unspecified, uncomplicated; F43.10 Post-traumatic stress disorder, unspecified; E66.01 Morbid (severe) obesity due to excess calories; Z68.32 Body mass index [BMI] 32.0-32.9, adult; Z71.3 Dietary counseling and surveillance; Z79.899 Other long term (current) drug therapy
CPT/HCPCS: 36415; 80048; 80053; 80143; 80179; 80307; 81003; 83690; 83735; 85025; 85027; 93005; 99285; J1308; J1650; J2405; J2560; J3360; J7120; S9485

== ENCOUNTER → 2025-08-19 12:32 | Outpatient (BNV) | payer MEDICAID, SELFPAY | PROVIDERS: Admitting Provider Physician Assistant Medical; Emergency Provider Emergency Medicine; PCP Internal Medicine; Visit Provider Internal Medicine Cardiovascular Disease | DX: F10.930 Alcohol use, unspecified with withdrawal, uncomplicated (principal) | CPT/HCPCS: 93010 ==

== ENCOUNTER → 2025-08-19 14:46 | Outpatient (BNV) | payer OTHER, SELFPAY | PROVIDERS: Admitting Provider Physician Assistant Medical; Emergency Provider Emergency Medicine; PCP Internal Medicine; Visit Provider Nurse Practitioner Psychiatric/Mental Health | DX: F11.90 Opioid use, unspecified, uncomplicated (principal) | CPT/HCPCS: 99231; 99232 ==

== ENCOUNTER → 2025-08-19 14:46 | Outpatient (BNV) | payer MEDICAID, SELFPAY | PROVIDERS: Admitting Provider Physician Assistant Medical; Emergency Provider Emergency Medicine; PCP Internal Medicine; Visit Provider Physician Assistant Medical | DX: F10.239 Alcohol dependence with withdrawal, unspecified (principal); F43.10 Post-traumatic stress disorder, unspecified; F11.20 Opioid dependence, uncomplicated | CPT/HCPCS: 99223; 99233; 99239 ==